=== PATIENT | male | born 1970 | race Two or more races ===

== ENCOUNTER 2020-06-27 23:06 | Inpatient (IN) | payer OTHER, MEDICAID ==
[~2020-06-27] VITALS: Ht 172.7 cm; Wt 77.6 kg
[~2020-06-27 23:06] MED LIST: ACET-3 PO; ALEN70TA56 OR; FENO134C PO; OYST500T48 OR; PHE100C PO
[2020-06-27] MEDS ORDERED: NALOXONE HCL 1MG/ML 2ML SYRINGE IV ONE (23:15)
[2020-06-27 23:52] LABS: Basophils # (auto) 0 10 ^3/uL (0-0.2); Basophils % (auto) 0.1 % (0.0-2.0); Eosinophils # (auto) 0 10 ^3/uL (0-0.8); Hematocrit 48.9 % (41.0-53.0); Hemoglobin 15.9 g/dL (13.5-17.5); Lymphocytes # (auto) 0.5 10 ^3/uL (0.4-5.4); Lymphocytes % (auto) 5.9 % (10.0-50.0); Mean Corpuscular Hemoglobin 30.7 pg (28.0-32.0); Mean Corpuscular Hgb Conc. 32.5 g/dL (32.0-36.0); Mean Corpuscular Volume 94.5 fL (80.0-100.0); Monocytes # (auto) 0.7 10 ^3/uL (0-1.3); Monocytes % (auto) 8.6 % (0.0-12.0); Neutrophils # (auto) 6.9 10 ^3/uL (1.6-8.6); Neutrophils % (auto) 85.4 % (37.0-80.0); Platelet Count (auto) 256 10^3/uL (140-450); Red Blood Cells 5.17 10^6/uL (4.5-5.90); Red Cell Distribution Width 13.9 % (11.8-14.3)
[2020-06-28] VITALS (11 sets, daily range): BP systolic 110–147; BP diastolic 71–92
[2020-06-28 00:10] LABS: Alanine Aminotransferase 227 U/L (16-61); Albumin 3.5 g/dL (3.4-5.0); Anion Gap 6 (5-15); Aspartate Aminotransferase 246 U/L (15-37); BUN/Creatinine Ratio 11.8; Blood Alcohol < 3.0 mg/dL (0-5); Blood Urea Nitrogen 18 mg/dL (7-18); Calcium 8.4 mg/dL (8.5-10.1); Carbon Dioxide 30 mmol/L (21-32); Chloride 103 mmol/L (98-107); GFR African American 62 mL/min; GFR Non-African American 51 mL/min; Glucose 193 mg/dL (74-106); Magnesium 2.1 mg/dL (1.6-2.6); Potassium 4.2 mmol/L (3.5-5.1); Sodium 139 mmol/L (136-145)
[2020-06-28 00:12] LABS: Lactic Acid w/Reflex 3.7 mmol/L (0.4-2.0)
[2020-06-28 00:15] LABS: Alkaline Phosphatase 68 U/L (45-117); Bilirubin, Total 0.2 mg/dL (0.2-1.0); Total Protein 7.2 g/dL (6.4-8.2)
[2020-06-28] MEDS ORDERED: SODIUM CHLORIDE 0.9% 1,000 ML IV ONE (00:39)
[2020-06-28] MEDS ORDERED: SODIUM BICARBONATE 8.4 % INJ 50ML VIAL IV ONE (01:00)
[2020-06-28] MEDS ORDERED: ENOXAPARIN SOD 80 MG/0.8ML SYRINGE SC ONE (01:15)
[2020-06-28 01:18] LABS: INR 1.11 (0.9-1.15); Partial Thromboplastin Time 25.1 sec (23.0-31.2)
[2020-06-28] MEDS ORDERED: levETIRAcetam 500 MG/5ML INJ IV ONE (01:37)
[2020-06-28] MEDS ORDERED: ONDANSETRON HCL 4 MG/2 ML VIAL IV PRN (02:30)
[2020-06-28] MEDS ORDERED: ACETAMINOPHEN 325 MG TAB PO PRN (02:30)
[2020-06-28] MEDS ORDERED: DEXTROSE (50%) 50ML SYRG IV PRN (02:45)
[2020-06-28] MEDS: ENOXAPARIN SOD 40 MG/0.4 ML SYRINGE SC SCH ×2 (02:54→11:27)
[2020-06-28] MEDS: ATORVASTATIN 20 MG TAB PO SCH ×2 (02:55→21:04)
[2020-06-28] MEDS: ASPirin 81 mg TAB PO SCH ×2 (02:55→10:00)
--- NOTE | 2020-06-28 03:45 | NUR ---
RECEIVED REPORT FORM ER NURSE TO RESUME CARE OF PATIENT. PATIENT BEING ADMITTED FOR ALOC AND NO S/S OF CARDIAC OR PULMONARY DISTRESS. ALL BELONGINGS WITH PATIENT. PATIENT PLACED ON BIPAP R-12 16/5 DDU000% AND TOLERATED WELL. WILL CONTINUE OT MONITOR PATIENT.
--- NOTE | 2020-06-28 04:00 | NUR ---
Admit to [facility]mitted to [facility] via gurney on campus monitor, and portable 02 and RT switched to BIPAP R-12 16/5 FIO2 50%. Patient transfered to bed, connected to unit monitoring and oxygen, and weighed by bedscale. Patient oriented to SERVANDO JOHNSON RN primary RN, unit, room, bed, and unit policies regarding patient care and visiting hours. Patient is awake alert and oriented x4 azeri speaking but has garbled speech. patient skin intact. All questions and concerns addressed, patient verbalized understanding.
--- NOTE | 2020-06-28 05:41 | NUR ---
BS-80 NO S/S HYPOGLYCEMIA NOTED NO COVERAGE/INTERVENTION NEEDED.
[2020-06-28] MEDS: InsuLIN REG 1unit/0.01ml Soln (100units/ml) SC SCH ×3 (05:47→18:00)
[2020-06-28] MEDS: ACCU-CHEK COMFORT CURVE STRIP VI SCH ×3 (05:47→18:08)
[2020-06-28] MEDS ORDERED: METF-370 PO (07:31)
[2020-06-28] MEDS ORDERED: ALEN1TAB32 PO (07:31)
[2020-06-28] MEDS ORDERED: LEVE500T32 PO (07:31)
[2020-06-28] MEDS ORDERED: ROSU20TA14 PO (07:31)
[2020-06-28] MEDS ORDERED: IBUP600T27 PO (07:31)
[2020-06-28] MEDS ORDERED: ASPI81CH43 PO (07:31)
[2020-06-28] MEDS ORDERED: CYA100I PO (07:32)
[2020-06-28] MEDS ORDERED: AMIT25TA9 PO (07:32)
[2020-06-28] MEDS ORDERED: FOLI1TAB6 PO (07:32)
--- NOTE | 2020-06-28 07:33 | NUR ---
CONSULTS LABORER MARINE TERMINAL NOTIFIED NEURO CONSULT WITH DR ELIZABETH, AND CARDIO CONSULT WITH DR VO, SHE WAS UNABLE TO CONTACT PULMONARY, NURSE JANNA NOTIFIED TO FOLLOW UP LATER TODAY.
--- NOTE | 2020-06-28 07:34 | NUR ---
GAVE REPORT TO NURSE SALDIVAR TO RESUME CARE OF PATIENT.
--- NOTE | 2020-06-28 08:01 | NUR ---
PATIENTS SABINE CALLED FOR UPDATE PROVIDED PASSWORD. UPDATED ON CURRENT STATUS.
[2020-06-28] MEDS ORDERED: VANCOMYCIN PER PHARMACY 0 MG IV SCH (08:30)
--- NOTE | 2020-06-28 09:29 | NUR ---
HAND GLUER AND SLICER AT BEDSIDE
[2020-06-28 09:36] LABS: Basophils # (auto) 0 10 ^3/uL (0-0.2); Basophils % (auto) 0.2 % (0.0-2.0); Eosinophils # (auto) 0 10 ^3/uL (0-0.8); Hematocrit 47.4 % (41.0-53.0); Hemoglobin 15.6 g/dL (13.5-17.5); Lymphocytes # (auto) 1.8 10 ^3/uL (0.4-5.4); Lymphocytes % (auto) 16.6 % (10.0-50.0); Mean Corpuscular Hgb Conc. 32.9 g/dL (32.0-36.0); Mean Corpuscular Volume 94.2 fL (80.0-100.0); Monocytes % (auto) 9.6 % (0.0-12.0); Neutrophils # (auto) 7.8 10 ^3/uL (1.6-8.6); Neutrophils % (auto) 73.6 % (37.0-80.0); Nucleated Red Blood Cells % 0.1 %; Platelet Count (auto) 273 10^3/uL (140-450); Red Blood Cells 5.03 10^6/uL (4.5-5.90); Red Cell Distribution Width 13.9 % (11.8-14.3); White Blood Cell 10.6 10^3/uL (4.4-10.8)
[2020-06-28 09:48] LABS: Albumin 3.2 g/dL (3.4-5.0); Calcium 8.2 mg/dL (8.5-10.1); Magnesium 2.4 mg/dL (1.6-2.6)
--- NOTE | 2020-06-28 09:51 | NUR ---
PATIENTS DAUGHTER JANNA CALLED FOR UPDATE PROVIDED PASSWORD. UPDATED ON PATIENTS STATUS.
[2020-06-28 09:52] LABS: BUN/Creatinine Ratio 20.2; Bilirubin, Total 0.2 mg/dL (0.2-1.0); Total Protein 7.1 g/dL (6.4-8.2)
[2020-06-28] MEDS ORDERED: VANCOMYCIN 1GM/250ML 250 ML IV SCH (10:00)
[2020-06-28] MEDS: VANCOMYCIN 1GM/250ML 250 ML IV SCH (10:05)
--- NOTE | 2020-06-28 11:12 | NUR ---
WOUND CARE NOTE: Wound care in to see patient per wound care request regarding "Low Juan score of 12", putting patient to high risk for skin breakdown. Patient is 49 years old male with admitting diagnosis of Hypercapnic Resp Failure, ALOC. Patient is resting in SDU bed in Rm. 264. Patient is awake, appears to be in no pain using Fernandez Lyman Faces Pain Scale. He's able to assist in turning and repositioning and his Jaun score is 15. Skin assessment done with the assistance of patient's nurse, ALEXANDER Pineda. No open wound, no pressure injury noted. Patient is Maldivian speaking. RT arrived at bedside and spoke with patient. Patient is alert and oriented x4, able to verbalize needs however he does not recall how he got into hospital. Patient is receiving BID/PRN cleaning and application of Barrier cream to sacral, buttocks as preventative. Repositioned patient for comfort facing his Rt side , redistributed pressure points with pillows. Patient tolerated well, ALEXANDER Pineda and R.T. at bedside. RECOMMENDATION: Nursing to continue with BID/PRN cleaning and application of Barrier cream to sacral, buttocks as preventative, redistribute pressure points with pillows, continue monitoring by wound care while Jaun score is <18. Addendum: 06/28/20 at 1517 by Chelo Hurtado RN Amended: Links added.
--- NOTE | 2020-06-28 11:15 | NUR ---
NEURO STATUS / RESPIRATORY STATUS PATIENT ONLY GREENLANDIC SPEAKER. RESPIRATORY THERAPIST SPOKE GREENLANDIC AND PATIENT IN AOX4. DOES NOT RECALL HOW HE CAME TO HOSPITAL
--- NOTE | 2020-06-28 11:50 | NUR ---
PATIENTS DAUGHTER HOWIE CALLED FOR UPDATE UPDATED ON CURRENT STATUS
--- NOTE | 2020-06-28 11:55 | NUR ---
PATIENT WHEELCHAIR BOUND AT HOME PER DAUGHTER HOWIE PATIENT HAS BEEN WHEELCHAIR BOUND SINCE SURGERY FOR SHUNT ABOUT 15-20 YEARS AGO. CAN TRANSITION WITH ASSISTANCE. PATIENT ALSO BROKE RIGHT ANKLE 10 YEARS AGO WHICH MAKES IN NON-WEIGHTBEARING.
[2020-06-28] MEDS: levoFLOXacin 500MG 100 ML IV SCH (12:10)
--- NOTE | 2020-06-28 12:19 | NUR ---
DR SWAN AT BEDSIDE, PATIENT PLACED ON NASAL CANNULA 6L TO BE ABLE TO COMMUNICATE TO MD PATIENT ABLE TO COMMUNICATE WITH LAO RN TO TRANSLATE TO MD.
--- NOTE | 2020-06-28 12:47 | NUR ---
PATIENT SPOKE WITH AND DAUGHTER ON THE PHONE.
--- NOTE | 2020-06-28 13:03 | NUR ---
PATIENT PLACED ON BEDPAN CALL LIGHT WITHIN REACH AND EDUCATED TO CALL WHEN DONE
--- NOTE | 2020-06-28 13:31 | NUR ---
HOSPITALIST VISITS DR Blaire VALADEZ AT BEDSIDE, UPDATED ON PATIENT'S STATUS, THIS NURSE COVERING AM NURSE FOR LUNCH. DR DISCUSSED PLAN OF CARE WITH PATIENT AND TRANSLATED IN ARABIC BY THIS NURSE. ALL QUESTIONS AND CONCERNS ADDRESSED, PATIENT VERBALIZED UNDERSTANDING. ORDERS RECEIVED AND WILL BE CARRIED OUT.
[2020-06-28] MEDS: PIPERACILLIN-TAZOB 3.375GM 100 ML IV SCH ×2 (13:41→18:08)
[2020-06-28] MEDS ORDERED: POLYETHYLENE GLYCOL 17 GM PWDR PO PRN (13:45)
[2020-06-28] MEDS ORDERED: guaiFENesin-DM 100/10mg/5ml SYR PO PRN (13:45)
--- NOTE | 2020-06-28 14:10 | NUR ---
Nutrition Assessment/Consult Notes Please refer to link for full assessment notes. Est Energy needs: 8568-1981 kcals (23-25 kcal/kgBW) Est Protein needs: 61-76 gms/day (0.8-1.0 gm/kgBW) Will continue to monitor and reassess prn. Addendum: 06/28/20 at [address] Amended: Links added.
--- NOTE | 2020-06-28 15:31 | NUR ---
PATIENTS SON CALLED FOR UPDATE PROVIDE PASSWORD. UPDATED ON PLAN OF CARE AND CURRENT STATUS. ADDRESSED CONCERNS
--- NOTE | 2020-06-28 16:00 | NUR ---
PATIENTS DAUGHTER HOWIE CALLED FOR UPDATE RN EDUCATED HER THAT FAMILY MEMBERS NEED TO COMMUNICATE RN CAN NOT KEEP REPEATING SAME INFORMATION. DAUGHTER VERBALIZED UNDERSTANDING AND WILL TALK WITH FAMILY. DAUGHTER WANTING TO KNOW IF PATIENT WILL BE DISCHARGED TOMORROW IT IS HIS BIRTHDAY.
--- NOTE | 2020-06-28 16:57 | NUR ---
DR PEREZ AT BEDSIDE NO NEW ORDERS
--- NOTE | 2020-06-28 19:15 | NUR ---
Opening Shift Note Assumed care of patient, awake and alert. No S/S of distress/SOB or pain. Patient currently on 3 L NC with O2 Sat of 97% Insructed on POC and to call for assistance when needed.
--- NOTE | 2020-06-28 20:00 | NUR ---
Family Communication Received call from Family member [place] requesting update on father, and requesting that father be discharged tomorrow as it is his birthday and the family wishes to spend time with him on his birthday. expressed that MD's will determine when patient is fit for discharge.
[2020-06-28] MEDS: DOCUSATE SOD 100 MG CAP PO SCH (21:03)
--- NOTE | 2020-06-28 22:25 | NUR ---
at bedside. Dr. Mendiola at bedside for Neuro evaluation.
--- NOTE | 2020-06-28 22:35 | NUR ---
Respiratory note: PLACED PT ON BIPAP B5, BIPAP CONNECTED TO RED OUTLET AND O2 SOURCE ALARMS ARE SET AND AUDIBLE AMBU BAG AND MASK AT BEDSIDE, PT ON SIZE (M) MASK, NO BREAKDOWN NOTED PRIOR TO PLACEMENT. BS ARE CLEAR T/O. PT AWARE I CAN BE PAGED AT ANY TIME. RT NAME AND PAGER ASSIGNMENT WRITTEN ON PTS ROOM BOARD.
[2020-06-29] MEDS: ACCU-CHEK COMFORT CURVE STRIP VI SCH ×5 (00:06→23:29)
[2020-06-29] MEDS: PIPERACILLIN-TAZOB 3.375GM 100 ML IV SCH ×3 (00:07→13:33)
--- NOTE | 2020-06-29 02:05 | NUR ---
Bipap Off Patient refusing to wear bipap at this time, patient placed on 4L NC Patient O2 Satis 95 and RR of 11
--- NOTE | 2020-06-29 02:31 | NUR ---
Tooth Cap Incident: During RT rounds patient presented the Real Time Analyst with a silver colored tooth cap ([place]) item placed in a denture cup and patient label place on the container, patient showed no s/s of distress in regards to cap becoming dislodged. patient denied any tooth pain at this time.
[2020-06-29 04:00] VITALS: BP 129/72
--- NOTE | 2020-06-29 04:44 | NUR ---
Morning Care: provided patient with bath, gown and bed change, patient tolerated procedure with out s/s of distress or sob.
[2020-06-29] MEDS: InsuLIN REG 1unit/0.01ml Soln (100units/ml) SC SCH ×5 (05:48→23:29)
--- NOTE | 2020-06-29 06:44 | NUR ---
End Shift Note: Provide shift report to oncoming RN and endorce care of patient. Patient awake and alert. No S/S of distress/SOB or pain. Patient currently on 5 L NC with O2 Sat of 97% with bed in lowest position locked in place and bed rails up x2.
[2020-06-29 07:40] VITALS: BP 131/71
[2020-06-29] MEDS ORDERED: VANCOMYCIN 1GM/250ML 250 ML IV SCH ×2 (09:00→21:00)
[2020-06-29] MEDS: VANCOMYCIN 1GM/250ML 250 ML IV SCH (09:04)
[2020-06-29] MEDS: ASPirin 81 mg TAB PO SCH (10:00)
[2020-06-29] MEDS: DOCUSATE SOD 100 MG CAP PO SCH ×2 (10:00→22:00)
[2020-06-29] MEDS: ENOXAPARIN SOD 40 MG/0.4 ML SYRINGE SC SCH (10:00)
--- NOTE | 2020-06-29 11:32 | NUR ---
DR Teagan LANDEROS PHONES - UPDATED ON CURRENT O2 LITER FLOW - ORDER RECEIVED. Addendum: 06/29/20 at 1134 by Colleen Maurice RN RT VELASQUEZ FOR ABCristi ORDER.
[2020-06-29 11:35] VITALS: BP 122/66
--- NOTE | 2020-06-29 12:15 | NUR ---
PATIENT DESATURATES TO 80-81% ON ROOM AIR - RT AT BEDSIDE.
[2020-06-29] MEDS: levoFLOXacin 500MG 100 ML IV SCH (12:32)
--- NOTE | 2020-06-29 12:40 | NUR ---
CALL PLACED TO DR LANDEROS RE: ABG RESULTS AND PATIENT'S RAPID DESATURATION ON ROOM AIR.
--- NOTE | 2020-06-29 13:36 | NUR ---
DR LANDEROS RETURNS CALL - STATES SAW ABG RESULTS AND WILL ENTER ORDERS. CALL PLACED TO SOCIAL SERVICE RE: NEED FOR HOME O2 FOR PROBABLE DC TOMORROW.
--- NOTE | 2020-06-29 13:40 | NUR ---
SPOKE TO ANA IN S.S. DEPT - STATES WILL ARRANGE FOR HOME O2 IN AM.
[2020-06-29] MEDS ORDERED: methylPREDNISolone SOD SUCC 125 MG/2 ML VL IV ONE (13:45)
--- NOTE | 2020-06-29 15:30 | NUR ---
DR CA VISITS AND EXAMINES PATIENT - NO NEW ORDERS RECEIVED.
[2020-06-29 15:35] VITALS: BP 131/82
--- NOTE | 2020-06-29 17:10 | NUR ---
PATIENT'S SON SHERRON PHONED - REQUESTING INFO. BOWLING ALLEY ATTENDANT CONSULTED WITH PATIENT AND PATIENT PREFERS TO GIVE OUT HIS OWN MEDICAL INFORMATION AND WILL CALL HIM. BOWLING ALLEY ATTENDANT INFORMED PATIENT'S SON - HE VERBALIZED UNDERSTANDING. BOWLING ALLEY ATTENDANT WITNESSED PATIENT USING I.S. TO 1500ML PER SELF WITHOUT BOWLING ALLEY ATTENDANT ENCOURAGING/REMINDING PATIENT. Addendum: 06/29/20 at 1739 by Colleen Maurice RN ERROR-WRONG PATIENT
--- NOTE | 2020-06-29 17:15 | NUR ---
FORM BUILDER RETURNED PATIENT'S DAUGHTER'S CALL - UPDATED ON CURRENT CONDITION. DAUGHTER ASKING WHY PATIENT CANNOT BE DISCHARGED TODAY - FORM BUILDER EXPLAINED LOW O2 LEVEL WITHOUT O2 AND MD WANTED TO KEEP HIM AT LEAST ANOTHER DAY IN HOSPITAL. PATIENT'S DAUGHTER ASKING OTHER DETAILED QUESTIONS AND STATES SHE HAS NOT TALKED TO AN MD AND HAS ONLY BEEN COMMUNICATING WITH THE NURSES. FORM BUILDER INFORMED PATIENT'S DAUGHTER THAT SHE WOULD CALL DR LANDEROS AND REQUEST THAT HE CALL HER - DAUGHTER VERY THANKFUL AND VERBALIZED UNDERSTANDING. FORM BUILDER PHONED DR LANDEROS'S SERVICE AND LEFT MESSAGE TO CALL PATIENT'S DAUGHTER.
[2020-06-29 20:00] VITALS: BP 127/74
--- NOTE | 2020-06-29 20:00 | NUR ---
SHIFT OPENING NOTE RECEIVED PATIENT AWAKE, ALERT AND ORIENTED X4. NO SOB, DISTRESS OR PAIN NOTED. ON 5L N/C POX 93%. PHYSICAL ASSESSMENT COMPLETED, SEE INTERVENTIONS. INSTRUCTED ON POC AND TO CALL FOR ASSIST NEEDED. BED IS IN THE LOWEST POSITION WITH SIDE RAILS UP X2, CALL LIGHT IS WITHIN REACH.
[2020-06-29] MEDS: methylPREDNISolone SOD SUCC 40 MG/ML VL IV SCH (21:15)
[2020-06-29] MEDS: ATORVASTATIN 20 MG TAB PO SCH (22:15)
--- NOTE | 2020-06-29 22:40 | NUR ---
ORAL SUCTION MODERATE AMOUNT OF THICK WHITE SECRETIONS SUCTIONED FROM THROAT. TOLERATED IT WELL.
[2020-06-30] VITALS (8 sets, daily range): BP systolic 96–123; BP diastolic 57–80
--- NOTE | 2020-06-30 00:50 | NUR ---
MORNING HYGIENE CARE FULL BED BATH PERFORMED WITH CHG WIPES AND WARM SOAPY WASH CLOTHES. GOWN CHANGED. PARTIAL LINEN CHANGED. PATIENT REPOSITIONED FOR COMFORT. TOLERATED IT WELL.
--- NOTE | 2020-06-30 05:15 | NUR ---
INCONTINENT OF URINE PATIENT NOTED TO HAVE PAD SATURATED WITH URINE. CARRINGTON CARE PERFORMED. NEW PADS PLACED UNDER PATIENT. TOLERATE IT WELL.
[2020-06-30] MEDS: InsuLIN REG 1unit/0.01ml Soln (100units/ml) SC SCH ×2 (05:55→12:26)
[2020-06-30] MEDS: ACCU-CHEK COMFORT CURVE STRIP VI SCH ×2 (05:55→12:29)
--- NOTE | 2020-06-30 06:27 | NUR ---
Respiratory note: ASSESSED PT , PATIENT WAS ASLEEP, NO RESP DISTRESS NOTED. PT IS ON 6L N/C, BS ARE COARSE T/O. TITRATED FIO2 TO 5L.WILL CONTINUE TO MONITOR.
--- NOTE | 2020-06-30 07:05 | NUR ---
Assumed care of pt, report received per ALEXANDER Juares. No distress noted, pt in bed and attached to monitor, pt. is reading sinus rhythm /s ectopy, will cont.to monitor for any changes, call horn in reach, assessment ongoing.
--- NOTE | 2020-06-30 07:15 | NUR ---
END OF SHIFT REPORT GIVEN AND CARE ENDORSED TO KAL MUNOZ.
[2020-06-30] MEDS: ENOXAPARIN SOD 40 MG/0.4 ML SYRINGE SC SCH (10:19)
[2020-06-30] MEDS: methylPREDNISolone SOD SUCC 40 MG/ML VL IV SCH (10:20)
[2020-06-30] MEDS: ASPirin 81 mg TAB PO SCH (10:20)
[2020-06-30] MEDS: DOCUSATE SOD 100 MG CAP PO SCH (10:20)
[2020-06-30] MEDS: levoFLOXacin 500MG 100 ML IV SCH (10:43)
[2020-06-30] MEDS ORDERED: IPRIH IN (12:54)
[2020-06-30] MEDS ORDERED: LEVO500T21 PO (12:54)
[2020-06-30] MEDS ORDERED: ALBUAER3 IN (12:54)
[2020-06-30] MEDS ORDERED: DOCU100C8 PO (12:54)
[2020-06-30] MEDS ORDERED: PRED20TA2 PO (12:54)
[2020-06-30] MEDS ORDERED: DEXT1SYP9 PO (12:54)
--- NOTE | 2020-06-30 13:00 | NUR ---
EEG. UNABLE TO COMPLETE EEG. PT EATING AND STATED HE WOULD LIKE FOR STUDY TO BE COMPLETED AT A LATER TIME. PRIMARY RN AWARE.
--- NOTE | 2020-06-30 14:01 | NUR ---
Nutrition Followup Notes Pt wt is 77.6 kg. Pt was sleeping when rounded this morning. Pt is with a CCHO 60g diet, appetite is fair aeb ave 63% PO intake over 2 meals per RN doc. Pt with no S/S of distress per RN doc. Est Energy needs: 0497-0112 kcals (23-25 kcal/kgBW) Est Protein needs: 61-76 gms/day (0.8-1.0 gm/kgBW) Will continue to monitor and reassess prn. LABS: GLUC 128 H, ALB 3.2 L GI: Pt had 1 BM on 06/29 per RN doc BS: 15 mod risk. Refer to wound assessment report for full details. PES: 1) Increased nutrient needs r/t pt with no PO intake aeb pt is NPO 2) Altered nutrition related la values r/t current medical condition aeb elev LFTs, hyperglycemia, hypocalcemia Comments Will continue to monitor PO status, skin status, pertinent labs and weight trends. Will f/u in 3-5 days. 1) Continue to carefully monitor pt NPO status 2) Gradually advance pt to oral CCHO 60g diet when medically feasible and as tolerated 3) Continue current plan of care
--- NOTE | 2020-06-30 15:00 | NUR ---
Dr. Renee notified of physical therapy recommendation of SNF, upon assessment pt. is noted severely weak and I concur /c physical therapy's recommendation, family and social economist updated, will cont.to monitor for any changes, family to return call. Assessment ongoing.
--- NOTE | 2020-06-30 17:43 | NUR ---
Assessment Patient is a 50-year-old year old male. Assessment was completed with patient Chitra Ph:). Per Chitra prior to admission patient lived home with her and family. Per Chitra she helps patient with his ADLs. Chitra is patient caregiver and IHSS. Per Chitra prior to admission patient was having difficulty breathing at night and brought patient to the hospital. Per Chitra patient has been having health problems for over 26 years. Per Chitra patient will return to his prior living arrangements post discharge and [facility] transportation to be arranged. Patient has a wheelchair for home use. Advised Chitra patient has a social service consult for home health safety evaluation, physical therapy [facility] transitional [facility] management and home oxygen at 3 l/min. Informed Chitra clinical information will be faxed to [facility] and [facility]. Informed Chitra she has a right to participate in all discharge planning. Chitra verbalized understanding and agreed to discharge plan home. [facility] and [facility] Per Priscilla with [employer] [phone] patient has been accepted and service to start within 24-48hrs upon d/c day. Per Dulce with [facility] portable oxygen will be deliver to front lobby between 14:00-16:00 and concentrate oxygen to home. Transportation has been arranged with [employer] via [employer] with oxygen between 17:00-18:30. Informed ALEXANDER Smith. Addendum: 06/30/20 at 1754 by ANA MAGANA Amended: Links added.
--- NOTE | 2020-06-30 18:15 | NUR ---
Dr. Rm and Sameera paged for consult to discharge pt. to home per Dr. Renee, will cont.to await medical consult, call horn in pt reach, assessment ongoing.
--- NOTE | 2020-06-30 18:30 | NUR ---
Dr. Rm and Sameera paged again for consult to discharge pt. to home per Dr. Renee, will cont.to await medical consult, call horn in pt reach, assessment ongoing.
--- NOTE | 2020-06-30 19:04 | NUR ---
No distress noted, pt. VSS, confirmation to discharge pt to home approved per Dr. Rm and Dr. Brasher, pt. discharge to home at this time per [facility]. IV removed, tip intact, bleeding controlled.
== END 2020-06-30 18:00 | disposition home health service (06) | DRG 189 ==
LOC: ER 23:06 → TELE 23:07 → DOU IN ICU 06-28 04:16
PROVIDERS: ADMIT Internal Medicine; ATTEND Internal Medicine
PROC: 5A09357 Assistance with Respiratory Ventilation, Less than 24 Consecutive Hours, Continuous Positive Airway Pressure (ICD-10-PCS; principal; 2020-06-28)
PROC: 5A09357 Assistance with Respiratory Ventilation, Less than 24 Consecutive Hours, Continuous Positive Airway Pressure (ICD-10-PCS; 2020-06-29)
DX: J96.02 Acute respiratory failure with hypercapnia (principal); G92 Toxic encephalopathy; J44.1 Chronic obstructive pulmonary disease with (acute) exacerbation; E87.2 Acidosis; I24.8 Other forms of acute ischemic heart disease; J96.01 Acute respiratory failure with hypoxia; E11.9 Type 2 diabetes mellitus without complications; G40.909 Epilepsy, unspecified, not intractable, without status epilepticus; K59.00 Constipation, unspecified; E78.5 Hyperlipidemia, unspecified; G91.4 Hydrocephalus in diseases classified elsewhere; M81.0 Age-related osteoporosis without current pathological fracture; I10 Essential (primary) hypertension; F17.210 Nicotine dependence, cigarettes, uncomplicated; Z79.4 Long term (current) use of insulin; F32.9 Major depressive disorder, single episode, unspecified; F41.9 Anxiety disorder, unspecified; Z79.82 Long term (current) use of aspirin; Z79.899 Other long term (current) drug therapy; Z82.49 Family history of ischemic heart disease and other diseases of the circulatory system; Z83.3 Family history of diabetes mellitus; Z87.11 Personal history of peptic ulcer disease; Z98.2 Presence of cerebrospinal fluid drainage device
CPT/HCPCS: 36415; 36600; 70450; 71045; 72125; 76705; 80053; 80061; 80202; 80320; 82550; 82565; 82805; 82962; 83036; 83605; 83735; 83880; 84100; 84484; 85025; 85379; 85384; 85610; 85730; 87040; 87076; 93306; 94660; 97110; 97530; G0378; J1815; J1956; J2543; J7060

== ENCOUNTER 2020-07-18 17:10 | Inpatient (IN) | payer OTHER, MEDICAID ==
[~2020-07-18] VITALS: Ht 172.7 cm; Wt 70.0 kg
[~2020-07-18 17:10] MED LIST changes: +ALBUAER3 IN; +ALEN1TAB32 PO; -ALEN70TA56 OR; +AMIT25TA9 PO; +ASPI81CH43 PO; +CYA100I PO; +DEXT1SYP9 PO; +DOCU100C8 PO; -FENO134C PO; +FOLI1TAB6 PO; +IBUP600T27 PO; +IPRIH IN; +LEVE500T32 PO; +LEVO500T21 PO; +METF-370 PO; -OYST500T48 OR; -PHE100C PO; +PRED20TA2 PO; +ROSU20TA14 PO
[2020-07-18 18:36] LABS: Basophils # (auto) 0 10 ^3/uL (0-0.2); Basophils % (auto) 0.3 % (0.0-2.0); Eosinophils # (auto) 0 10 ^3/uL (0-0.8); Eosinophils % (auto) 0.5 % (0.0-7.0); Hematocrit 45.7 % (41.0-53.0); Hemoglobin 15.1 g/dL (13.5-17.5); Lymphocytes # (auto) 0.8 10 ^3/uL (0.4-5.4); Lymphocytes % (auto) 10.1 % (10.0-50.0); Mean Corpuscular Hemoglobin 30.4 pg (28.0-32.0); Mean Corpuscular Hgb Conc. 33.1 g/dL (32.0-36.0); Mean Corpuscular Volume 91.7 fL (80.0-100.0); Monocytes # (auto) 0.6 10 ^3/uL (0-1.3); Monocytes % (auto) 7.5 % (0.0-12.0); Neutrophils # (auto) 6.5 10 ^3/uL (1.6-8.6); Neutrophils % (auto) 81.6 % (37.0-80.0); Nucleated Red Blood Cells % 0.1 %; Platelet Count (auto) 255 10^3/uL (140-450); Red Blood Cells 4.98 10^6/uL (4.5-5.90); Red Cell Distribution Width 12.7 % (11.8-14.3)
[2020-07-18 18:52] LABS: Albumin 3.4 g/dL (3.4-5.0); Blood Urea Nitrogen 9 mg/dL (7-18); Calcium 9.8 mg/dL (8.5-10.1); Glucose 109 mg/dL (74-106); Potassium 4.1 mmol/L (3.5-5.1)
[2020-07-18 19:00] LABS: Alanine Aminotransferase 21 U/L (16-61); Alkaline Phosphatase 55 U/L (45-117); Aspartate Aminotransferase 9 U/L (15-37); BUN/Creatinine Ratio 19.1; Bilirubin, Total 0.4 mg/dL (0.2-1.0); CRP High Sensitivity 3.04 mg/dL (< 0.3); GFR African American 241 mL/min; GFR Non-African American 199 mL/min; Lactate Dehydrogenase 122 U/L (87-241); Total Protein 7.5 g/dL (6.4-8.2)
[2020-07-18] MEDS ORDERED: NITROGLYCERIN 0.4 MG SL TAB SL PRN ×2 (19:00→20:00)
[2020-07-18] MEDS ORDERED: MORPHINE SULF INJ 2 MG/ML SYRINGE 1ML IV PRN ×3 (19:00→20:00)
[2020-07-18] MEDS ORDERED: levoFLOXacin 500MG 100 ML IV ONE (20:00)
[2020-07-18] MEDS ORDERED: guaiFENesin-DM 100/10mg/5ml SYR PO PRN (20:00)
[2020-07-18] MEDS ORDERED: CLINDAMYCIN 600MG IV 50 ML IV ONE (20:00)
[2020-07-18] MEDS ORDERED: ALENDRONATE SODIUM 10 MG TAB PO SCH (20:00)
[2020-07-18] MEDS ORDERED: ACETAMINOPHEN 325 MG TAB PO PRN (20:00)
[2020-07-18] MEDS ORDERED: DEXTROSE (50%) 50ML SYRG IV PRN (20:00)
[2020-07-18] MEDS ORDERED: ALUM & MAG HYDROX-SIMETH LIQ(MAALOX) 30 ML PO PRN (20:00)
[2020-07-18] MEDS ORDERED: cefTRIAXone 1GM/50ML D5W 50 ML IV ONE (20:00)
[2020-07-18] MEDS ORDERED: LORazepam 0.5 MG TAB PO PRN (20:00)
[2020-07-18] MEDS ORDERED: ONDANSETRON HCL 4 MG/2 ML VIAL IV PRN (20:00)
[2020-07-18] MEDS ORDERED: HYDROcodone-ACET 5/325MG TAB PO PRN (20:00)
[2020-07-18] MEDS ORDERED: DOCUSATE SOD 100 MG CAP PO PRN (20:00)
[2020-07-18 20:08] LABS: Anion Gap 3 (5-15); Carbon Dioxide 39 mmol/L (21-32); Chloride 97 mmol/L (98-107); Sodium 139 mmol/L (136-145)
[2020-07-18 20:10] VITALS: BP 105/60
[2020-07-18] MEDS ORDERED: IPRATROPIUM BROM 0.5 MG/2.5ML INH SOL NEB PRN (20:15)
[2020-07-18 20:51] LABS: Cholesterol 167 mg/dL (< 200); Triglycerides 109 mg/dL (< 150)
[2020-07-18 20:54] LABS: HDL Cholesterol 38 mg/dL (40-59); LDL Cholesterol 113 mg/dL (< 100)
[2020-07-18 22:00] VITALS: BP 105/60
[2020-07-18] MEDS ORDERED: IBUPROFEN 600 MG TAB PO PRN (22:00)
[2020-07-18] MEDS: InsuLIN REG 1unit/0.01ml Soln (100units/ml) SC SCH (22:00)
[2020-07-18] MEDS ORDERED: DOCUSATE SOD 100 MG CAP PO SCH (22:00)
[2020-07-18] MEDS ORDERED: CLINDAMYCIN 600MG IV 50 ML IV SCH (22:00)
[2020-07-18] MEDS: AMITRIPTYLINE HCL 25 MG TAB PO SCH (22:10)
[2020-07-18] MEDS: ATORVASTATIN 20 MG TAB PO SCH (22:10)
[2020-07-18] MEDS: levETIRAcetam 500 MG TAB PO SCH (22:10)
[2020-07-18] MEDS: SODIUM CHLORIDE 0.9% 1,000 ML IV SCH (22:11)
[2020-07-18] MEDS: ACCU-CHEK COMFORT CURVE STRIP VI SCH (22:21)
[2020-07-19] VITALS (7 sets, daily range): BP systolic 95–125; BP diastolic 60–75
[2020-07-19] MEDS ORDERED: ACETAMINOPHEN 500 MG TAB PO SCH
[2020-07-19] MEDS ORDERED: OMEG600C2 PO (00:52)
[2020-07-19] MEDS ORDERED: [UNRECOGNIZED DRUG - CODE] PO (00:52)
[2020-07-19] MEDS ORDERED: CALC500C71 PO (00:52)
[2020-07-19] MEDS ORDERED: FLUT110A INH (00:52)
[2020-07-19] MEDS ORDERED: MELO1TAB56 PO (00:52)
[2020-07-19] MEDS ORDERED: SERDISK IN (00:52)
[2020-07-19] MEDS ORDERED: CHOL20007 PO (00:52)
[2020-07-19] MEDS ORDERED: ASPI325T4 PO (00:54)
[2020-07-19] MEDS ORDERED: methylPREDNISolone SOD SUCC 125 MG/2 ML VL IV ONE (01:30)
[2020-07-19 04:59] LABS: Urine WBC None Seen /hpf (0 - 3)
[2020-07-19 05:14] LABS: Urine Bacteria NONE SEEN /hpf (None Seen); Urine Blood Negative /uL (Negative); Urine Mucus FEW (None Seen); Urine Specific Gravity 1.021 (1.001-1.035)
[2020-07-19 05:23] LABS: Amphetamine Screen, Urine NEGATIVE (NEGATIVE); Barbiturate Scree,Urine NEGATIVE (NEGATIVE); Benzodiazephine Screen, Urine NEGATIVE (NEGATIVE); Cannabinoid Screen, Urine NEGATIVE (NEGATIVE); Cocaine Screen, Urine NEGATIVE (NEGATIVE); Opiate Scree,Urine NEGATIVE (NEGATIVE); Phencyclidine Screen, Urine NEGATIVE (NEGATIVE)
[2020-07-19] MEDS: IPRATROPIUM BROM 0.5 MG/2.5ML INH SOL NEB SCH ×5 (06:38→22:34)
[2020-07-19] MEDS: ACCU-CHEK COMFORT CURVE STRIP VI SCH ×4 (06:44→22:01)
[2020-07-19] MEDS: methylPREDNISolone SOD SUCC 40 MG/ML VL IV SCH ×3 (06:44→22:04)
[2020-07-19] MEDS: InsuLIN REG 1unit/0.01ml Soln (100units/ml) SC SCH ×4 (06:51→22:02)
[2020-07-19] MEDS ORDERED: cefTRIAXone 1GM/50ML D5W 50 ML IV SCH (09:00)
[2020-07-19] MEDS: ENOXAPARIN SOD 40 MG/0.4 ML SYRINGE SC SCH (11:22)
[2020-07-19] MEDS: levoFLOXacin 500MG 100 ML IV SCH (11:22)
[2020-07-19] MEDS: SUCRALFATE 1 GM/10 ML ORAL SUSP PO SCH ×3 (11:23→22:04)
[2020-07-19] MEDS: PANTOPRAZOLE 40 MG TAB PO SCH ×2 (11:23→22:06)
[2020-07-19] MEDS: ASPirin 81 mg TAB PO SCH (11:23)
[2020-07-19] MEDS: LACTULOSE 20Gm/30ML SOLN PO PRN (11:23)
[2020-07-19] MEDS: dilTIAZem 120MG ER CAP PO SCH (11:24)
[2020-07-19] MEDS: levETIRAcetam 500 MG TAB PO SCH ×2 (11:24→22:05)
[2020-07-19] MEDS: SODIUM CHLORIDE 0.9% 1,000 ML IV SCH (11:51)
[2020-07-19] MEDS: ALBUTEROL SULF 2.5 MG/0.5ML(0.5%) NEB SOLN NEB PRN (18:44)
[2020-07-19] MEDS: AMITRIPTYLINE HCL 25 MG TAB PO SCH (22:06)
[2020-07-19] MEDS: ATORVASTATIN 20 MG TAB PO SCH (22:06)
[2020-07-20 05:33] VITALS: BP 106/65
[2020-07-20 05:45] LABS: Basophils # (auto) 0 10 ^3/uL (0-0.2); Basophils % (auto) 0.1 % (0.0-2.0); Eosinophils # (auto) 0 10 ^3/uL (0-0.8); Hematocrit 42.1 % (41.0-53.0); Hemoglobin 14.3 g/dL (13.5-17.5); Lymphocytes # (auto) 0.9 10 ^3/uL (0.4-5.4); Lymphocytes % (auto) 9.7 % (10.0-50.0); Mean Corpuscular Hemoglobin 30.6 pg (28.0-32.0); Mean Corpuscular Hgb Conc. 33.9 g/dL (32.0-36.0); Mean Corpuscular Volume 90.3 fL (80.0-100.0); Monocytes # (auto) 0.2 10 ^3/uL (0-1.3); Monocytes % (auto) 1.7 % (0.0-12.0); Neutrophils % (auto) 88.5 % (37.0-80.0); Platelet Count (auto) 272 10^3/uL (140-450); Red Blood Cells 4.67 10^6/uL (4.5-5.90); Red Cell Distribution Width 12.7 % (11.8-14.3)
[2020-07-20] MEDS: SODIUM CHLORIDE 0.9% 1,000 ML IV SCH ×2 (05:54→22:56)
[2020-07-20] MEDS: methylPREDNISolone SOD SUCC 40 MG/ML VL IV SCH ×3 (05:54→22:00)
[2020-07-20 06:00] LABS: Calcium 9.5 mg/dL (8.5-10.1); Potassium 3.9 mmol/L (3.5-5.1)
[2020-07-20] MEDS: IPRATROPIUM BROM 0.5 MG/2.5ML INH SOL NEB SCH ×5 (06:35→22:41)
[2020-07-20] MEDS: ALBUTEROL SULF 2.5 MG/0.5ML(0.5%) NEB SOLN NEB PRN (06:35)
[2020-07-20] MEDS: SUCRALFATE 1 GM/10 ML ORAL SUSP PO SCH ×4 (06:37→22:00)
[2020-07-20] MEDS: ACCU-CHEK COMFORT CURVE STRIP VI SCH ×4 (06:37→22:01)
[2020-07-20] MEDS: InsuLIN REG 1unit/0.01ml Soln (100units/ml) SC SCH ×4 (06:41→22:03)
[2020-07-20 08:58] VITALS: BP 101/59
[2020-07-20] MEDS: ENOXAPARIN SOD 40 MG/0.4 ML SYRINGE SC SCH (11:05)
[2020-07-20] MEDS: ASPirin 81 mg TAB PO SCH (11:05)
[2020-07-20] MEDS: levoFLOXacin 500MG 100 ML IV SCH (11:05)
[2020-07-20] MEDS: levETIRAcetam 500 MG TAB PO SCH ×2 (11:06→22:01)
[2020-07-20] MEDS: dilTIAZem 120MG ER CAP PO SCH (11:06)
[2020-07-20] MEDS: PANTOPRAZOLE 40 MG TAB PO SCH ×2 (11:06→22:01)
[2020-07-20 13:00] VITALS: BP 102/61
[2020-07-20 17:00] VITALS: BP 100/59
[2020-07-20 20:00] VITALS: BP 121/79
[2020-07-20 22:00] VITALS: BP 121/79
[2020-07-20] MEDS: AMITRIPTYLINE HCL 25 MG TAB PO SCH (22:00)
[2020-07-20] MEDS: ATORVASTATIN 20 MG TAB PO SCH (22:01)
[2020-07-20] MEDS: LACTULOSE 20Gm/30ML SOLN PO PRN (22:09)
[2020-07-21] MEDS: IPRATROPIUM BROM 0.5 MG/2.5ML INH SOL NEB SCH ×5 (02:06→18:37)
[2020-07-21 05:00] VITALS: BP 121/81
[2020-07-21 05:39] LABS: Basophils # (auto) 0 10 ^3/uL (0-0.2); Basophils % (auto) 0.1 % (0.0-2.0); Eosinophils # (auto) 0 10 ^3/uL (0-0.8); Hematocrit 42.2 % (41.0-53.0); Hemoglobin 14.2 g/dL (13.5-17.5); Lymphocytes # (auto) 0.8 10 ^3/uL (0.4-5.4); Lymphocytes % (auto) 7.4 % (10.0-50.0); Mean Corpuscular Hemoglobin 30.7 pg (28.0-32.0); Mean Corpuscular Hgb Conc. 33.7 g/dL (32.0-36.0); Mean Corpuscular Volume 90.9 fL (80.0-100.0); Monocytes # (auto) 0.2 10 ^3/uL (0-1.3); Monocytes % (auto) 1.6 % (0.0-12.0); Neutrophils # (auto) 10.1 10 ^3/uL (1.6-8.6); Neutrophils % (auto) 90.9 % (37.0-80.0); Nucleated Red Blood Cells % 0.1 %; Platelet Count (auto) 259 10^3/uL (140-450); Red Blood Cells 4.65 10^6/uL (4.5-5.90); Red Cell Distribution Width 12.6 % (11.8-14.3); White Blood Cell 11.1 10^3/uL (4.4-10.8)
[2020-07-21 05:55] LABS: Potassium 3.6 mmol/L (3.5-5.1)
[2020-07-21 06:00] LABS: BUN/Creatinine Ratio 31.8; Calcium 9.3 mg/dL (8.5-10.1)
[2020-07-21] MEDS: methylPREDNISolone SOD SUCC 40 MG/ML VL IV SCH ×2 (06:06→14:00)
[2020-07-21] MEDS: ALBUTEROL SULF 2.5 MG/0.5ML(0.5%) NEB SOLN NEB PRN ×3 (06:08→18:37)
[2020-07-21] MEDS: ACCU-CHEK COMFORT CURVE STRIP VI SCH ×3 (06:38→17:00)
[2020-07-21] MEDS: SUCRALFATE 1 GM/10 ML ORAL SUSP PO SCH ×3 (06:38→17:00)
[2020-07-21] MEDS: InsuLIN REG 1unit/0.01ml Soln (100units/ml) SC SCH ×3 (06:40→17:00)
[2020-07-21 09:00] VITALS: BP 119/74
[2020-07-21] MEDS: ENOXAPARIN SOD 40 MG/0.4 ML SYRINGE SC SCH (09:56)
[2020-07-21] MEDS: levoFLOXacin 500MG 100 ML IV SCH (09:56)
[2020-07-21] MEDS: ASPirin 81 mg TAB PO SCH (09:56)
[2020-07-21] MEDS: PANTOPRAZOLE 40 MG TAB PO SCH (09:57)
[2020-07-21] MEDS: levETIRAcetam 500 MG TAB PO SCH (09:57)
[2020-07-21] MEDS: dilTIAZem 120MG ER CAP PO SCH (09:57)
[2020-07-21] MEDS: LACTULOSE 20Gm/30ML SOLN PO PRN (11:10)
[2020-07-21 13:00] VITALS: BP 149/65
[2020-07-21] MEDS: SODIUM CHLORIDE 0.9% 1,000 ML IV SCH (14:40)
[2020-07-21 15:52] VITALS: BP 149/65
[2020-07-21 16:56] VITALS: BP 122/75
[2020-07-22] MEDS ORDERED: levoFLOXacin 750MG 150 ML IV SCH (10:00)
== END 2020-07-21 20:25 | disposition home or self-care (01) | DRG 177 ==
LOC: ER 17:10 → EDBD 17:10 → TELE 17:11 → TELE-CENTR 19:59 → TELE-EAST 23:44 → TELE-CENTR 07-19 03:25
PROVIDERS: ADMIT Hospitalist; ATTEND Internal Medicine
DX: J69.0 Pneumonitis due to inhalation of food and vomit (principal); J96.21 Acute and chronic respiratory failure with hypoxia; G92 Toxic encephalopathy; J96.22 Acute and chronic respiratory failure with hypercapnia; J44.1 Chronic obstructive pulmonary disease with (acute) exacerbation; D68.59 Other primary thrombophilia; Z20.828 Contact with and (suspected) exposure to other viral communicable diseases; E11.40 Type 2 diabetes mellitus with diabetic neuropathy, unspecified; I48.91 Unspecified atrial fibrillation; I10 Essential (primary) hypertension; E78.5 Hyperlipidemia, unspecified; G40.909 Epilepsy, unspecified, not intractable, without status epilepticus; K59.00 Constipation, unspecified; I25.10 Atherosclerotic heart disease of native coronary artery without angina pectoris; I25.2 Old myocardial infarction; Z90.49 Acquired absence of other specified parts of digestive tract; Z87.11 Personal history of peptic ulcer disease
CPT/HCPCS: 36415; 36600; 70450; 71045; 80048; 80053; 80061; 80307; 81001; 82728; 82805; 82962; 83036; 83615; 83880; 84443; 84484; 85025; 86141; 87040; 87070; 87081; 87086; 87205; 87426; 92610; 94640; G0378; J1815; J1956

== ENCOUNTER 2020-08-09 08:24 | Inpatient (IN) | payer OTHER, MEDICAID ==
[~2020-08-09] VITALS: Ht 165.1 cm; Wt 64.2 kg
[~2020-08-09 08:24] MED LIST changes: -ALEN1TAB32 PO; +ASPI325T4 PO; -ASPI81CH43 PO; +CALC500C71 PO; +CHOL20007 PO; +FLUT110A INH; +MELO1TAB56 PO; +OMEG600C2 PO; -PRED20TA2 PO; -ROSU20TA14 PO; +SERDISK IN; +[UNRECOGNIZED DRUG - CODE] PO
[2020-08-09] MEDS ORDERED: SODIUM CHLORIDE 0.9% 1,000 ML IV ONE (08:45)
[2020-08-09] MEDS ORDERED: ACETAMINOPHEN 325 MG TAB PO ONE (08:45)
[2020-08-09] MEDS ORDERED: CIPROFLOXACIN 400MG/200ML 200 ML IV ONE (09:15)
[2020-08-09 09:46] LABS: Basophils # (auto) 0 10 ^3/uL (0-0.2); Basophils % (auto) 0.2 % (0.0-2.0); Eosinophils # (auto) 0 10 ^3/uL (0-0.8); Eosinophils % (auto) 0.7 % (0.0-7.0); Hematocrit 40.9 % (41.0-53.0); Hemoglobin 13.5 g/dL (13.5-17.5); Lymphocytes # (auto) 0.6 10 ^3/uL (0.4-5.4); Lymphocytes % (auto) 8.9 % (10.0-50.0); Mean Corpuscular Hemoglobin 30.2 pg (28.0-32.0); Mean Corpuscular Volume 91.5 fL (80.0-100.0); Monocytes # (auto) 0.7 10 ^3/uL (0-1.3); Monocytes % (auto) 11.9 % (0.0-12.0); Neutrophils # (auto) 4.9 10 ^3/uL (1.6-8.6); Neutrophils % (auto) 78.3 % (37.0-80.0); Nucleated Red Blood Cells % 0.2 %; Platelet Count (auto) 249 10^3/uL (140-450); Red Blood Cells 4.47 10^6/uL (4.5-5.90); White Blood Cell 6.3 10^3/uL (4.4-10.8)
[2020-08-09 10:11] LABS: Albumin 2.9 g/dL (3.4-5.0); Anion Gap 0 (5-15); Blood Urea Nitrogen 12 mg/dL (7-18); Calcium 9.7 mg/dL (8.5-10.1); Carbon Dioxide 40 mmol/L (21-32); Chloride 99 mmol/L (98-107); Glucose 151 mg/dL (74-106); Magnesium 1.8 mg/dL (1.6-2.6); Potassium 3.6 mmol/L (3.5-5.1); Sodium 139 mmol/L (136-145)
[2020-08-09 10:17] LABS: Alanine Aminotransferase 13 U/L (16-61); Alkaline Phosphatase 58 U/L (45-117); Aspartate Aminotransferase 11 U/L (15-37); BUN/Creatinine Ratio 26.1; Bilirubin, Total 0.3 mg/dL (0.2-1.0); GFR African American 247 mL/min; GFR Non-African American 204 mL/min; Total Protein 6.8 g/dL (6.4-8.2)
[2020-08-09 13:03] LABS: Urine WBC None Seen /hpf (0 - 3)
[2020-08-09 13:28] LABS: Urine Bacteria NONE SEEN /hpf (None Seen); Urine Blood Negative /uL (Negative); Urine Hyaline Cast FEW /lpf (0 - 2); Urine Mucus FEW (None Seen); Urine Specific Gravity 1.021 (1.001-1.035)
[2020-08-09] MEDS ORDERED: DEXTROSE (50%) 50ML SYRG IV PRN (15:45)
[2020-08-09] MEDS ORDERED: VANCOMYCIN PER PHARMACY 0 MG IV SCH (15:45)
[2020-08-09] MEDS ORDERED: MORPHINE SULF INJ 2 MG/ML SYRINGE 1ML IV PRN (15:45)
[2020-08-09] MEDS ORDERED: NITROGLYCERIN 0.4 MG SL TAB SL PRN (15:45)
[2020-08-09] MEDS ORDERED: guaiFENesin-DM 100/10mg/5ml SYR PO PRN (15:45)
[2020-08-09] MEDS ORDERED: ALBUTEROL SULF HFA 90MCG INH 200DOSE IN PRN (15:45)
[2020-08-09] MEDS: InsuLIN REG 1unit/0.01ml Soln (100units/ml) SC SCH ×2 (17:00→21:51)
[2020-08-09] MEDS: ACCU-CHEK COMFORT CURVE STRIP VI SCH ×2 (17:00→21:51)
--- NOTE | 2020-08-09 17:39 | NUR ---
Telemetry admit from [facility] admitted to Telemetry unit. Patient oriented to Jessie Levine, primary RN, unit, room, bed, and unit policies regarding patient care and visiting hours. Patient now on continuous telemetry monitoring, tele box #24 and telemetry reading on arrival to unit is SR @ 97 BPM. Bed set to lowest position/locked, beside rails up x2, call light within reach. Instructed patient to call for assistance. Patient verbalized understanding. Will continue to monitor q 1hr and prn.
[2020-08-09 17:54] VITALS: BP 131/81
[2020-08-09 17:56] VITALS: BP 131/81
[2020-08-09] MEDS ORDERED: ACETAMINOPHEN 500 MG TAB PO SCH (18:00)
[2020-08-09] MEDS ORDERED: ACETAMINOPHEN 500 MG TAB PO PRN (18:30)
[2020-08-09] MEDS: VANCOMYCIN 1GM/250ML 250 ML IV SCH (18:32)
--- NOTE | 2020-08-09 18:43 | NUR ---
MRSA SWAB MRSA SWAB COLLECTED.
--- NOTE | 2020-08-09 19:30 | NUR ---
Opening Shift Note Assumed care of patient, awake and alert x4. Patient denies pain or shortness of breath at this time. No sign/symptoms of distress noted or verbalized at this time. Instructed on plan of care and encouraged patient to call for assistance as needed, patient verbalized understanding. Bed is locked in lowest position, side rails x 2 are up, and call light is within reach. Addendum: 08/09/20 at 2250 by ANAI ROBERTSON RN RN Seizures precautions in place. Addendum: 08/09/20 at 2250 by ANAI ROBERTSON RN RN Seizure precautions in place.
[2020-08-09] MEDS: AMITRIPTYLINE HCL 25 MG TAB PO SCH (21:30)
[2020-08-09] MEDS: PIPERACILLIN-TAZOB 3.375GM 100 ML IV SCH (21:30)
[2020-08-09] MEDS: levETIRAcetam 500 MG TAB PO SCH (21:30)
[2020-08-09 22:00] VITALS: BP 118/73
[2020-08-10 00:39] VITALS: BP 110/73
[2020-08-10] MEDS: VANCOMYCIN 1GM/250ML 250 ML IV SCH ×5 (04:30→20:30)
[2020-08-10 05:00] VITALS: BP 114/60
[2020-08-10] MEDS: PIPERACILLIN-TAZOB 3.375GM 100 ML IV SCH ×3 (06:22→22:16)
[2020-08-10] MEDS: ACCU-CHEK COMFORT CURVE STRIP VI SCH ×4 (06:22→22:16)
[2020-08-10] MEDS: InsuLIN REG 1unit/0.01ml Soln (100units/ml) SC SCH ×4 (06:35→22:29)
--- NOTE | 2020-08-10 07:20 | NUR ---
OPENING NOTE ASSUMED CARE OF PT. AWAKE AND ALERT. NO S/S OF SOB/DISTRESS. BED SET TO LOWEST POSITION/LOCKED. BEDSIDE RAILS UP X2. CALL LIGHT WITH IN REACH. INSTRUCTED PT TO CALL FOR ASSISTANCE. WILL CONTINUE TO MONITOR Q1HR AND PRN.
[2020-08-10 07:40] LABS: Potassium 3.1 mmol/L (3.5-5.1)
[2020-08-10 07:50] LABS: BUN/Creatinine Ratio 22.2; Calcium 8.8 mg/dL (8.5-10.1)
[2020-08-10 07:52] LABS: Basophils # (auto) 0 10 ^3/uL (0-0.2); Basophils % (auto) 0.1 % (0.0-2.0); Eosinophils # (auto) 0.1 10 ^3/uL (0-0.8); Eosinophils % (auto) 0.9 % (0.0-7.0); Hematocrit 37.3 % (41.0-53.0); Hemoglobin 12.5 g/dL (13.5-17.5); Lymphocytes # (auto) 1.4 10 ^3/uL (0.4-5.4); Lymphocytes % (auto) 13.4 % (10.0-50.0); Mean Corpuscular Hemoglobin 30.1 pg (28.0-32.0); Mean Corpuscular Hgb Conc. 33.6 g/dL (32.0-36.0); Mean Corpuscular Volume 89.5 fL (80.0-100.0); Monocytes # (auto) 1.6 10 ^3/uL (0-1.3); Monocytes % (auto) 15.6 % (0.0-12.0); Neutrophils # (auto) 7.1 10 ^3/uL (1.6-8.6); Nucleated Red Blood Cells % 0.1 %; Platelet Count (auto) 262 10^3/uL (140-450); Red Blood Cells 4.17 10^6/uL (4.5-5.90); Red Cell Distribution Width 12.5 % (11.8-14.3); White Blood Cell 10.1 10^3/uL (4.4-10.8)
[2020-08-10 08:00] VITALS: BP 102/63
[2020-08-10] MEDS: levETIRAcetam 500 MG TAB PO SCH ×2 (09:14→22:17)
[2020-08-10 12:00] VITALS: BP 106/57
[2020-08-10 17:00] VITALS: BP 115/68
--- NOTE | 2020-08-10 20:00 | NUR ---
Opening note Assumed care of patient, patient is alert and awake. No sob or distress noted. POC reviewed. All questions answered. Bed is locked in lowest position, side rails up x2. Call light within reach.
[2020-08-10 21:48] VITALS: BP 105/62
[2020-08-10] MEDS: AMITRIPTYLINE HCL 25 MG TAB PO SCH (22:18)
[2020-08-11] MEDS: VANCOMYCIN 1GM/250ML 250 ML IV SCH (04:42)
[2020-08-11 04:48] VITALS: BP 103/64
[2020-08-11] MEDS: ACCU-CHEK COMFORT CURVE STRIP VI SCH ×4 (06:22→22:11)
[2020-08-11] MEDS: PIPERACILLIN-TAZOB 3.375GM 100 ML IV SCH ×3 (06:23→22:10)
[2020-08-11] MEDS: InsuLIN REG 1unit/0.01ml Soln (100units/ml) SC SCH ×4 (06:31→22:00)
[2020-08-11 08:00] VITALS: BP 102/56
[2020-08-11 08:15] LABS: Basophils # (auto) 0.1 10 ^3/uL (0-0.2); Basophils % (auto) 0.5 % (0.0-2.0); Eosinophils # (auto) 0.1 10 ^3/uL (0-0.8); Hematocrit 37.4 % (41.0-53.0); Hemoglobin 12.5 g/dL (13.5-17.5); Lymphocytes # (auto) 1.8 10 ^3/uL (0.4-5.4); Lymphocytes % (auto) 14.5 % (10.0-50.0); Mean Corpuscular Hemoglobin 30.1 pg (28.0-32.0); Mean Corpuscular Hgb Conc. 33.4 g/dL (32.0-36.0); Mean Corpuscular Volume 89.9 fL (80.0-100.0); Monocytes # (auto) 1.7 10 ^3/uL (0-1.3); Monocytes % (auto) 13.6 % (0.0-12.0); Neutrophils # (auto) 8.8 10 ^3/uL (1.6-8.6); Neutrophils % (auto) 70.4 % (37.0-80.0); Platelet Count (auto) 292 10^3/uL (140-450); Red Blood Cells 4.16 10^6/uL (4.5-5.90); Red Cell Distribution Width 12.7 % (11.8-14.3); White Blood Cell 12.5 10^3/uL (4.4-10.8)
[2020-08-11 08:35] LABS: Calcium 9.3 mg/dL (8.5-10.1); Potassium 3.3 mmol/L (3.5-5.1)
[2020-08-11 08:38] LABS: BUN/Creatinine Ratio 11.1
[2020-08-11] MEDS: levETIRAcetam 500 MG TAB PO SCH ×2 (09:37→22:11)
[2020-08-11 12:00] VITALS: BP 102/58
[2020-08-11] MEDS ORDERED: POTASSIUM EFFERVESENT TAB 25 MEQ PO ONE (12:30)
[2020-08-11 16:00] VITALS: BP 106/58
--- NOTE | 2020-08-11 20:45 | NUR ---
Patient transferred to room 201 Assumed care of patient, awake and alert x 3. No S/S of distress/SOB or pain. Patient transferred to bed without incident. Board updated. Patient continued on 3 l/min NC. Instructed on POC and to call for assist PRN, will continue to monitor for changes Q1hr and PRN.
--- NOTE | 2020-08-11 20:50 | NUR ---
Patient transferred off unit to central: Patient transferred off unit to central. Report given to Balta MUNOZ and is to assume care of patient. All questions answered. Addendum: 08/11/20 at 2050 by Ya Rosenberg RN RN Patient transferred with all of his belongings and tolerated well.
[2020-08-11 22:00] VITALS: BP 94/55
[2020-08-11 22:09] VITALS: BP 112/60
[2020-08-11] MEDS: AMITRIPTYLINE HCL 25 MG TAB PO SCH (22:11)
[2020-08-12 05:00] VITALS: BP 104/56
--- NOTE | 2020-08-12 05:01 | NUR ---
Paging hospitalist to notify of decreased urine output. Urine output is 275 mls in 12 hour, averaging 23 mls/hr. Patient is not receiving IV fluids. BP is 107/56.
[2020-08-12] MEDS ORDERED: SODIUM CHLORIDE 0.9% 500 ML IV ONE (05:15)
[2020-08-12] MEDS: PIPERACILLIN-TAZOB 3.375GM 100 ML IV SCH ×3 (06:29→21:06)
[2020-08-12] MEDS: ACCU-CHEK COMFORT CURVE STRIP VI SCH ×4 (06:29→21:07)
[2020-08-12] MEDS: InsuLIN REG 1unit/0.01ml Soln (100units/ml) SC SCH ×4 (06:29→21:24)
--- NOTE | 2020-08-12 07:55 | NUR ---
Opening Shift Note Assumed care of patient, awake and alert. No S/S of distress/SOB or pain. Instructed on POC and to call for assist PRN, will continue to monitor for changes Q1hr and PRN. Bed locked in lowest position with two side rails up and call light in reach.
[2020-08-12 08:00] VITALS: BP 100/56
[2020-08-12 09:00] VITALS: BP 100/56
[2020-08-12] MEDS: levETIRAcetam 500 MG TAB PO SCH ×2 (10:00→21:07)
--- NOTE | 2020-08-12 11:02 | NUR ---
Nutrition Assessment Est energy needs 9362-3920 kcal (25-30 kcal/kg BW 68.2kg) Est protein needs 68-75 (1-1.1g/kg BW 68.2kg) Will reassess prn. Addendum: 08/12/20 at [address] Amended: Links added.
[2020-08-12 13:00] VITALS: BP 122/65
[2020-08-12] MEDS ORDERED: IOHEXOL 350 MG/ML 100ML IJ ONE (13:14)
--- NOTE | 2020-08-12 14:30 | NUR ---
PATIENT AGREES TO CT WITH CONTRAST. VERBALIZED UNDERSTANDING, WAS ABLE TO REPEAT TO ME THE PROCEDURE. ALSO SPOKE TO AND SON AND THEY AGREE TO HAVE CT WITH CONTRAST.
--- NOTE | 2020-08-12 15:49 | NUR ---
REPORT GIVEN TO DEVIKA
[2020-08-12] MEDS ORDERED: VANCOMYCIN PER PHARMACY 0 MG IV SCH (16:00)
--- NOTE | 2020-08-12 16:21 | NUR ---
PATIENT TO ROOM 283. TELE MONITOR SWITCHED- BOX 61. PATIENT WAS ORIENTED TO ROOM BY MYSELF AND MIKA BELTRAN WHO HELPED ME TRANSLATE. PATIENT IS ABLE TO ANSWER WHO HE IS, DATE OF AND THAT HE IS IN THE HOSPITAL BUT IS NOT ABLE TO COMMUNICATE SITUATION. PATIENT IS NOT IN ANY DISTRESS AND HAS NO COMPLAINTS OF PAIN. BED ALARM IS ON, BED LOW AND LIGHT IN REACH.
[2020-08-12] MEDS ORDERED: SODIUM CHL 3% 500 ML BAG IN ONE (16:30)
[2020-08-12] MEDS ORDERED: SODIUM CHLORIDE 0.9 % NEB SOLN 3ML NEB ONE (16:41)
--- NOTE | 2020-08-12 16:50 | NUR ---
HYPERTONIC SOLUTION FOR SPUTUM INDUCITON ORDERED WITH PHARMACY AND WILL BE READY IN 20 MINS. NOC RT WILL BE NOTIFIED.
[2020-08-12 16:52] VITALS: BP 101/58
[2020-08-12] MEDS ORDERED: VANCOMYCIN 1GM/250ML 250 ML IV ONE (17:00)
[2020-08-12] MEDS: CIPROFLOXACIN 0.3%OPTH(EYE) SOL 5ML LEFTEYE SCH ×2 (18:00→21:06)
--- NOTE | 2020-08-12 18:23 | NUR ---
SPOKE WITH PHARMACIST EUGENIO ABOUT PATIENT EMAR EYEDROPS WHICH WE DO NOT CARRY. SHE INFORMED ME SHE WOULD PLACE A CALL TO THE MD AND GET BACK WITH ME ABOUT ALTERNATIVES.
--- NOTE | 2020-08-12 19:24 | NUR ---
Respiratory note: UNABLE TO ADMINISTER SODIUM CHLORIDE FOR PT TO PRODUCE SPUTUM AT THIS TIME. PT CURRENTLY DOES NOT UNDERSTAND WHERE HE IS AND KEEPS YELLING AND ASKING FOR THE POLICE. WILL CONTINUE TO MONITOR AND TRY AGAIN AT A LATER TIME.
--- NOTE | 2020-08-12 20:00 | NUR ---
OPENING NOTE Received report from RN, Rosio. Patient is A&O X's 3 but is confused to current situation. Patient states his name/birthday and that he is in the hospital. Patient saying things that do not make sense to the current situation. SENIOR LOAN PROCESSOR at bedside to help translate. Educated patient on POC and to use call light when in need of any assistance. Patient is receiving 3L O2 via N.C. No s/s of distress noted and patient reports no pain. Bed is in lowest/locked position with padded side rails up X's 2 and call light is within reach of patient. Bed alarm on for safety. Will continue care.
[2020-08-12] MEDS: AMITRIPTYLINE HCL 25 MG TAB PO SCH (21:07)
[2020-08-12 22:00] VITALS: BP 106/65
[2020-08-13] MEDS: CIPROFLOXACIN 0.3%OPTH(EYE) SOL 5ML LEFTEYE SCH ×6 (02:02→22:50)
--- NOTE | 2020-08-13 02:55 | NUR ---
NOTE ABOUT AFB CULTURE Per report, day shift RN did not know what AFB test to order. This RN spoke to lab about which test should be ordered for a rule out TB patient. Per lab, all of them are send outs but to call [facility] that opens at 0800 because they will know more about what test to order for this patient. Will inform day shift to follow up with [facility]. This RN is still encouraging patient to provide respiratory sample for this. Patient not producing anything at this time.
[2020-08-13 05:00] VITALS: BP 114/68
--- NOTE | 2020-08-13 05:20 | NUR ---
IV insertion IV access obtained, via clean sterile technique by inserting 22 gauge catheter at left ac after one attempt. IV secured properly. No trauma to site. Patient tolerated well. 20G IV to right AC was found partially out. Catheter was then fully removed. Catheter intact. NO trauma noted to site.
[2020-08-13] MEDS ORDERED: SODIUM CHL 3% 500 ML BAG IN ONE (06:00)
[2020-08-13] MEDS: PIPERACILLIN-TAZOB 3.375GM 100 ML IV SCH ×3 (06:17→22:49)
[2020-08-13] MEDS: ACCU-CHEK COMFORT CURVE STRIP VI SCH ×4 (06:18→22:50)
[2020-08-13] MEDS: InsuLIN REG 1unit/0.01ml Soln (100units/ml) SC SCH ×4 (06:18→22:00)
--- NOTE | 2020-08-13 06:19 | NUR ---
lab lab was unsuccessful at drawing patient's blood after an attempt. patient was a hard stick. They will come back at a later time to try again.
--- NOTE | 2020-08-13 07:08 | NUR ---
OPENING SHIFT NOTES Assumed care of patient from night shift manager RN. Patient is alert and oriented x1, patient is very confused, pulling at mock catheter and yelling. He was oriented to place time and situation. He is on oxygen at 3L/min via nasal cannula, saturation 94%. His mock is draining light pink urine, no tubing loops or kinks noted. Bed is locked, in the lowest position, side rails are up x2 and call light is in reach. Patient was encouraged to call for assistance as needed. Will inform broker in charge on the possibility of a sitter.
--- NOTE | 2020-08-13 07:45 | NUR ---
Respiratory note: PT CURRENTLY DOES NOT UNDERSTAND WHERE HE IS AND KEEPS YELLING UNABLE TO PRODUCE ANY SPUTUM AT THIS TIME. PT ALSO REFUSING HYPERTONIC MEDNEB TX. WILL CONTINUE TO MONITOR AND TRY AGAIN AT A LATER TIME. RN MADE AWARE.
--- NOTE | 2020-08-13 08:55 | NUR ---
PATIENT REFUSING LABS Per tech patient is refusing labs, will attempt to redraw later.
[2020-08-13 09:00] VITALS: BP 137/81
[2020-08-13] MEDS ORDERED: IOHEXOL 300 MG/ML 100ML BOTTLE IJ ONE (09:48)
[2020-08-13] MEDS: levETIRAcetam 500 MG TAB PO SCH ×2 (09:52→22:50)
--- NOTE | 2020-08-13 09:53 | NUR ---
PATIENT TAKEN TO CT ACCOMPANIED BY TECH, No signs of distress noted.
--- NOTE | 2020-08-13 10:30 | NUR ---
PATIENT BACK FROM CT placed back on bedside oxygen. No signs of distress noted.
--- NOTE | 2020-08-13 10:42 | NUR ---
SHERRY AT BEDSIDE updated on the patient status. Per MD patient may need possible bronchoscopy, however the patient is altered and no procedure will be done with the patient ALOC. No new orders received.
[2020-08-13] MEDS: VANCOMYCIN 1GM/250ML 250 ML IV SCH (11:54)
[2020-08-13 13:00] VITALS: BP 127/81
--- NOTE | 2020-08-13 13:41 | NUR ---
Respiratory note: PT REFUSING ABG AT THIS TIME. NO RESPIRATORY DISTRESS NOTED. RN AND DR. GRANT.
[2020-08-13 17:00] VITALS: BP 131/75
--- NOTE | 2020-08-13 20:33 | NUR ---
at bedside to assess pt and obtain sputum sample. Hypertonic solution administer via nebulizer. Pt on 4lpm nc pox 94-95% PT acting strange. Pt having a full conversation in [place]an with himself. This RT asked pt who he is talking to, pt states in [place]an " my fucken uncle, right there!" pt looking to his left side toward restroom, no one is there. 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 Will communicate behavior to RN and MD. Post tx, instructed pt to give a good cough and bring out any sputum he can. Pt gave 3 great attempts sputum sample obtained and will be sending to lab.
[2020-08-13 21:30] VITALS: BP 129/86
[2020-08-13 22:08] LABS: Basophils # (auto) 0 10 ^3/uL (0-0.2); Basophils % (auto) 0.2 % (0.0-2.0); Eosinophils # (auto) 0.1 10 ^3/uL (0-0.8); Eosinophils % (auto) 0.4 % (0.0-7.0); Hematocrit 41.9 % (41.0-53.0); Hemoglobin 14.1 g/dL (13.5-17.5); Lymphocytes # (auto) 1.1 10 ^3/uL (0.4-5.4); Lymphocytes % (auto) 8.3 % (10.0-50.0); Mean Corpuscular Hemoglobin 29.7 pg (28.0-32.0); Mean Corpuscular Hgb Conc. 33.7 g/dL (32.0-36.0); Mean Corpuscular Volume 88.2 fL (80.0-100.0); Monocytes # (auto) 1.6 10 ^3/uL (0-1.3); Monocytes % (auto) 11.9 % (0.0-12.0); Neutrophils # (auto) 10.6 10 ^3/uL (1.6-8.6); Neutrophils % (auto) 79.2 % (37.0-80.0); Platelet Count (auto) 306 10^3/uL (140-450); Red Blood Cells 4.75 10^6/uL (4.5-5.90); Red Cell Distribution Width 12.7 % (11.8-14.3); White Blood Cell 13.4 10^3/uL (4.4-10.8)
[2020-08-13] MEDS ORDERED: LORazepam 2MG/ML-1ML VIAL IV PRN (22:15)
[2020-08-13 22:22] LABS: Albumin 2.9 g/dL (3.4-5.0); Anion Gap 7 (5-15); Blood Urea Nitrogen 18 mg/dL (7-18); Calcium 8.8 mg/dL (8.5-10.1); Carbon Dioxide 34 mmol/L (21-32); Chloride 97 mmol/L (98-107); Glucose 79 mg/dL (74-106); Potassium 3.6 mmol/L (3.5-5.1); Sodium 138 mmol/L (136-145)
[2020-08-13 22:24] LABS: Alanine Aminotransferase 16 U/L (16-61); Aspartate Aminotransferase 22 U/L (15-37); BUN/Creatinine Ratio 7.7; GFR African American 38 mL/min; GFR Non-African American 31 mL/min
[2020-08-13 22:26] LABS: Alkaline Phosphatase 68 U/L (45-117); Bilirubin, Total 0.4 mg/dL (0.2-1.0); Total Protein 7.1 g/dL (6.4-8.2)
[2020-08-13] MEDS: AMITRIPTYLINE HCL 25 MG TAB PO SCH (22:50)
[2020-08-14] MEDS: CIPROFLOXACIN 0.3%OPTH(EYE) SOL 5ML LEFTEYE SCH ×6 (02:30→22:00)
[2020-08-14 05:00] VITALS: BP_SYST 116; BP_SYST 134; BP_DIAS 59; BP_DIAS 76
[2020-08-14] MEDS: VANCOMYCIN 1GM/250ML 250 ML IV SCH (05:35)
[2020-08-14] MEDS ORDERED: SODIUM CHL 3% 500 ML BAG IN ONE (06:00)
[2020-08-14] MEDS: ACCU-CHEK COMFORT CURVE STRIP VI SCH (06:45)
[2020-08-14] MEDS: PIPERACILLIN-TAZOB 3.375GM 100 ML IV SCH (06:45)
[2020-08-14] MEDS: InsuLIN REG 1unit/0.01ml Soln (100units/ml) SC SCH (06:45)
[2020-08-14 07:25] LABS: Basophils # (auto) 0 10 ^3/uL (0-0.2); Basophils % (auto) 0.2 % (0.0-2.0); Eosinophils # (auto) 0.1 10 ^3/uL (0-0.8); Eosinophils % (auto) 0.5 % (0.0-7.0); Hematocrit 39.8 % (41.0-53.0); Hemoglobin 13.5 g/dL (13.5-17.5); Lymphocytes # (auto) 1.3 10 ^3/uL (0.4-5.4); Lymphocytes % (auto) 9.5 % (10.0-50.0); Mean Corpuscular Hgb Conc. 33.8 g/dL (32.0-36.0); Mean Corpuscular Volume 88.6 fL (80.0-100.0); Monocytes # (auto) 1.3 10 ^3/uL (0-1.3); Monocytes % (auto) 10.1 % (0.0-12.0); Neutrophils # (auto) 10.6 10 ^3/uL (1.6-8.6); Neutrophils % (auto) 79.7 % (37.0-80.0); Nucleated Red Blood Cells % 0.1 %; Platelet Count (auto) 315 10^3/uL (140-450); Red Blood Cells 4.49 10^6/uL (4.5-5.90); White Blood Cell 13.3 10^3/uL (4.4-10.8)
[2020-08-14 07:40] LABS: Albumin 2.4 g/dL (3.4-5.0); Calcium 9.3 mg/dL (8.5-10.1); Potassium 3.3 mmol/L (3.5-5.1)
[2020-08-14 07:44] LABS: Bilirubin, Total 0.5 mg/dL (0.2-1.0); Total Protein 6.7 g/dL (6.4-8.2)
--- NOTE | 2020-08-14 08:33 | NUR ---
OPENING SHIFT NOTE: PATIENT RESTING IN BED, ASLEEP AWOKEN A/OX1. RESPIRATIONS EVEN AND UNLABORED LUNG SOUNDS COARSE. THIS RN ATTEMPTING TO RE-ORIENT PATIENT, AND UPDATED ON PLAN OF CARE. MUÑOZ HUNG BELOW BLADDER FREE OF KINKS, CALL LIGHT WITHIN REACH, FALL PRECAUTIONS IN PLACE, WILL CONTINUE TO MONITOR.
[2020-08-14] MEDS ORDERED: SODIUM CHLORIDE 0.9% 1,000 ML IV SCH (08:45)
[2020-08-14 08:47] LABS: Folate (Folic Acid) 11.81 ng/mL (5.38-24)
[2020-08-14 09:00] VITALS: BP 120/79
[2020-08-14] MEDS: levETIRAcetam 500 MG TAB PO SCH ×2 (09:20→22:32)
--- NOTE | 2020-08-14 12:07 | NUR ---
sputum obtained at sent to lab
--- NOTE | 2020-08-14 12:39 | NUR ---
CALL FROM NIECE AND AUNT: UNABLE TO PROVIDE PASSWORD. FAMILY UPSET AND REPORTS THEY ARE FAMILY AND DO NOT COMMUNICATE WITH DAUGHTER AND . BULGARIAN SPEAKING RN GABRIELLE ALSO ATTEMPTING TO INFORM THE FAMILY OF HIPPAA POLICY. PATIENT UNABLE TO COMMUNICATE VIA TELEPHONE A/OX1.
[2020-08-14 13:00] VITALS: BP 118/72
[2020-08-14] MEDS: PIPERACILLIN-TAZOB 2.25GM 50 ML IV SCH ×2 (15:29→17:23)
[2020-08-14 17:00] VITALS: BP 118/63
--- NOTE | 2020-08-14 18:40 | NUR ---
CARE ENDORSED TO NOC RN.
--- NOTE | 2020-08-14 19:30 | NUR ---
Opening Shift Note Assumed care of patient, awake and alert. No S/S of distress/SOB or pain. Patient is confused AxOx2 Patient instructed on POC. Will continue to monitor for changes Q1hr and PRN. Fall precautions in place and call light within reach.
[2020-08-14 20:00] VITALS: BP 108/70
[2020-08-14] MEDS: SODIUM CHLORIDE 0.9% 1,000 ML IV SCH (20:00)
--- NOTE | 2020-08-14 21:11 | NUR ---
Dr. Mendiola at bedside to see patient and ordered to obtain consent for Lumbar Puncture. Patient is a Ecuadorean speaker, RN was advised by MD to call the family. RN called the , Chitra who also speaks only Ecuadorean and told RN to call the daughter Caroline. MD spoke to Caroline and explained the procedure, [place] verbalized understanding and give telephone consent to the MD. RN confirmed that the daughter is giving consent for the MD to do the Lumbar Puncture.
--- NOTE | 2020-08-14 21:20 | NUR ---
and RN inside the room to do the Lumbar Puncture, munitions factory worker Elisa also present for interpretation. However patient suddenly became confused and agitated when told him that his daughter Caroline consented for the procedure on his behalf. He started talking different things and that Caroline only consented because of life insurance. Patient refused to do the Lumbar Puncture.
[2020-08-14 22:00] VITALS: BP 108/70
[2020-08-14] MEDS: AMITRIPTYLINE HCL 25 MG TAB PO SCH (22:33)
[2020-08-15] MEDS: PIPERACILLIN-TAZOB 2.25GM 50 ML IV SCH ×3 (00:11→13:12)
--- NOTE | 2020-08-15 00:15 | NUR ---
IV insertion Patient pulled out IV line and tele box monitor. IV access obtained, via clean sterile technique by inserting 22 gauge catheter at R forearm after 1 attempt. IV secured properly. No trauma to site. Patient tolerated well.
[2020-08-15] MEDS: CIPROFLOXACIN 0.3%OPTH(EYE) SOL 5ML LEFTEYE SCH ×6 (02:15→22:16)
[2020-08-15 05:00] VITALS: BP 109/66
[2020-08-15 06:58] LABS: Basophils # (auto) 0 10 ^3/uL (0-0.2); Basophils % (auto) 0.2 % (0.0-2.0); Eosinophils # (auto) 0.1 10 ^3/uL (0-0.8); Eosinophils % (auto) 0.7 % (0.0-7.0); Hematocrit 36.7 % (41.0-53.0); Hemoglobin 12.7 g/dL (13.5-17.5); Lymphocytes % (auto) 9.6 % (10.0-50.0); Mean Corpuscular Hemoglobin 30.4 pg (28.0-32.0); Mean Corpuscular Hgb Conc. 34.6 g/dL (32.0-36.0); Mean Corpuscular Volume 87.6 fL (80.0-100.0); Monocytes # (auto) 1.2 10 ^3/uL (0-1.3); Monocytes % (auto) 11.1 % (0.0-12.0); Neutrophils # (auto) 8.4 10 ^3/uL (1.6-8.6); Neutrophils % (auto) 78.4 % (37.0-80.0); Platelet Count (auto) 290 10^3/uL (140-450); Red Blood Cells 4.18 10^6/uL (4.5-5.90); Red Cell Distribution Width 12.8 % (11.8-14.3); White Blood Cell 10.8 10^3/uL (4.4-10.8)
[2020-08-15 07:04] LABS: Potassium 3.1 mmol/L (3.5-5.1)
[2020-08-15] MEDS: SODIUM CHLORIDE 0.9% 1,000 ML IV SCH (07:20)
[2020-08-15 07:24] LABS: BUN/Creatinine Ratio 9.3; Calcium 8.9 mg/dL (8.5-10.1)
--- NOTE | 2020-08-15 07:30 | NUR ---
Opening Shift Note Assumed care of patient, awake and alert. No S/S of distress/SOB or pain. Instructed on POC and to call for assist PRN, will continue to monitor for changes Q1hr and PRN. Fall precautions in place per safety protocol.
[2020-08-15 09:00] VITALS: BP 122/86
[2020-08-15] MEDS: levETIRAcetam 500 MG TAB PO SCH ×2 (10:37→22:15)
--- NOTE | 2020-08-15 12:00 | NUR ---
Radiology Per Tj in Radiology, MRI cannot be done due to patient not knowing what type of penile implant he has. Family will be called to verify type of implant and documentation of implant. Will cont to monitor patient at this time.
[2020-08-15 13:00] VITALS: BP 135/90
--- NOTE | 2020-08-15 13:00 | NUR ---
Hospitalist MD Napier at bedside, aware of patient status, Including Low Potassium. New orders for potassium replacement received at this time. Will carry out new orders and cont to monitor patient.
--- NOTE | 2020-08-15 14:59 | NUR ---
Nutrition Followup Notes Pt wt is 67.2 kg Pt was sleeping when rounded this morning. Pt is with a CCHO 60g diet, appetite is poor aeb ave 30% PO intake x5 meals per RN doc. Encouraged pt to increase her PO intake. Pt stated she just has no appetite but will try to eat more of her meals. Est energy needs 8045-8311 kcal (25-30 kcal/kg BW 68.2kg) Est protein needs 68-75 (1-1.1g/kg BW 68.2kg) Will reassess prn. LABS: K 3.1 L, CREAT 1.93 H, GFR 39 L, ALB 2.4 L GI: Pt with no BM today per RN doc. BS: 16 mod risk. Refer to Wound Assessment report for further details. PES: Increased nutrient needs r/t increased needs for resp failure aeb pt with history of PNA, resp failure Comments Will continue to monitor PO status, skin status, pertinent labs and weight trends. Will f/u in 3-5 days 1) Continue to monitor po intake, labs, skin 2) refer pt to OPD on DC 3) Continue current plan of care
[2020-08-15] MEDS ORDERED: POTASSIUM CHL 20 Meq TABLET PO ONE (16:15)
--- NOTE | 2020-08-15 16:30 | NUR ---
Implant info Spoke to family in regards to patients inplant, Per Elisha, implant is plastic. Per Chitra she will have proof of type of implant faxed over from Dr. Yosef Heredia office. Awaiting fax at this time. Will cont to monitor patient.
--- NOTE | 2020-08-15 16:50 | NUR ---
Assessment Patient is a 50-year-old year old male who is confused. Assessment was completed with patient Chitra . Per Chitra prior to admission patient lived home with her and family. Per Chitra she helps patient with his ADLs. Chitra is patient caregiver and IHSS. Per Chitra patient has been having health problems for over 26 years. Per Chitra patient will return to his prior living arrangements post discharge and [facility] transportation to be arranged. Patient has a wheelchair and oxygen for home use. Per Chitra she would like patient to resume home health with [facility] upon d/c day. Informed Chitra she has a right to participate in all discharge planning. Chitra verbalized understanding and agreed to discharge plan home. Addendum: 08/15/20 at 1653 by ANA MAGANA Amended: Links added.
[2020-08-15 17:00] VITALS: BP 133/82
--- NOTE | 2020-08-15 17:00 | NUR ---
Infectious Disease Dr Melgar at bedside, aware of patient status. Per Dr Melgar, please obtain AFB Smear of Sputum for today as 3 negatives are needed to rule out TB. Will carry out new orders. Communication order place for Histoplasmosis Serology placed. This nurse Attempted to call Microbiology, however awaiting call back at this time for how to input order.
--- NOTE | 2020-08-15 18:15 | NUR ---
Round Found blood on patients sheets, when asked where the blood come from, patient replied "well from my finger". Patient bit part of nail off and bled. Bleeding has stopped, patient denies any pain and refusing to have it cleansed until after dinner. Will cont to monitor patient.
[2020-08-15] MEDS: PIPERACILLIN-TAZOB 3.375GM 100 ML IV SCH ×2 (18:20→23:45)
--- NOTE | 2020-08-15 18:51 | NUR ---
Implant Fax Received fax of patient penile implant indicating type of material for implant. Fax place in front of patients chart at this time. Will carry out in report.
[2020-08-15] MEDS ORDERED: SODIUM CHLORIDE 0.9% 1,000 ML IV ONE (19:00)
--- NOTE | 2020-08-15 19:19 | NUR ---
Endorsed care to Night ALEXANDER Garzon. Patient resting in bed, no distress, SOB, or pain noted at this time. RN aware of pending Urine, and Sputum collection for new AFB smear and urine Histoplasma antigen orders. Addendum: 08/15/20 at 1926 by JAX JUAREZ RN RN ALEXANDER Contreras
--- NOTE | 2020-08-15 19:30 | NUR ---
Opening Shift Note Assumed care of patient, awake and alert X3. No S/S of distress/SOB or pain. Instructed on POC and to call for assist PRN, will continue to monitor for changes Q1hr and PRN. Patient has a mock catheter for incontinence and is on 3L of O2. Bed at lowest position and call light within reach. Fall and seizure precautions in place
[2020-08-15 20:00] VITALS: BP 128/84
[2020-08-15 21:00] VITALS: BP 128/84
[2020-08-15] MEDS: AMITRIPTYLINE HCL 25 MG TAB PO SCH (22:15)
--- NOTE | 2020-08-15 23:30 | NUR ---
Spoke to daughter Caroline to explain to the patient that the MD is at bedside to do a lumbar puncture. Patient verbalized understanding. MD did lumbar puncture but was unsuccessful.
[2020-08-16] MEDS: CIPROFLOXACIN 0.3%OPTH(EYE) SOL 5ML LEFTEYE SCH ×6 (02:21→21:19)
[2020-08-16 05:00] VITALS: BP 124/78
[2020-08-16] MEDS: PIPERACILLIN-TAZOB 3.375GM 100 ML IV SCH ×3 (06:19→18:22)
--- NOTE | 2020-08-16 07:00 | NUR ---
Urine collected from patient for histoplasma antigen and sample sent to the lab.
--- NOTE | 2020-08-16 07:42 | NUR ---
Opening Shift Note Assumed care of patient, awake and alert X3. No S/S of distress/SOB or pain reported at this time. confusion noted, does not know he's in the hospital. Instructed on POC with Ethiopian staff for translate and to call for assist PRN, will continue to monitor for changes Q1hr and PRN. Patient has a mock catheter for incontinence and is on 2L oxygen via NC. Bed at lowest position and call light within reach. Fall and seizure precautions in place
[2020-08-16 08:00] VITALS: BP 121/73
[2020-08-16 09:00] VITALS: BP 121/73
[2020-08-16] MEDS: levETIRAcetam 500 MG TAB PO SCH ×2 (10:53→21:19)
--- NOTE | 2020-08-16 10:55 | NUR ---
WHOLE LINEN CHANGE PATIENT HAD A BOWEL MOVEMENT, OBSERVED TRYING TO GET OUT OF BED DUE TO CONFUSION
[2020-08-16 13:00] VITALS: BP 139/87
--- NOTE | 2020-08-16 13:20 | NUR ---
patient off unit for MRI will resume scheduled meds upon return to unit
[2020-08-16] MEDS ORDERED: VANCOMYCIN PER PHARMACY 0 MG IV SCH (15:15)
--- NOTE | 2020-08-16 16:20 | NUR ---
Per pharmacy, one time order of Potassium PO med will be held until new lab is drawn.
[2020-08-16] MEDS: VANCOMYCIN 1GM/250ML 250 ML IV SCH (16:47)
[2020-08-16 16:49] VITALS: BP 144/92
[2020-08-16] MEDS: Glucerna Carbsteady SHAKE Vanilla 8oz PO SCH (18:24)
[2020-08-16 18:48] LABS: BUN/Creatinine Ratio 8.2; Potassium 3.1 mmol/L (3.5-5.1)
--- NOTE | 2020-08-16 18:50 | NUR ---
unable to collect sputum sample, patient not coughing. Endorsed to noc shift rn.
[2020-08-16] MEDS ORDERED: POTASSIUM CHL 20 Meq TABLET PO ONE ×2 (19:00→19:30)
--- NOTE | 2020-08-16 19:15 | NUR ---
Opening Shift Note Assumed care of patient, awake, alert. Confused, Indian speaking only, Requiring ticket puller, No S/S of distress/SOB or pain. bed in low locked position, siderailsx2 up, call light within reach. non skid socks on. bed alarm on.Reviewed charts and medication. Safety fall precaution observed. Instructed on POC and to call for assist PRN, will continue to monitor for changes Q1hr and PRN.
--- NOTE | 2020-08-16 20:00 | NUR ---
Patient had BM. SHUTTLE REPAIRER Briseida inside the room to help with Polish communication. Cleaned patient. Tolerated.
--- NOTE | 2020-08-16 21:00 | NUR ---
Inform the CN Aaliyah that patient is confused and need a sitter. CN said that we don't have available sitter right now. Will try to stay near patient's room often and monitor patient all the time.
[2020-08-16] MEDS: AMITRIPTYLINE HCL 25 MG TAB PO SCH (21:19)
[2020-08-16 22:52] VITALS: BP 131/86
--- NOTE | 2020-08-16 23:00 | NUR ---
Patient trying to get up and pull IV line and mock catheter. will keep on monitoring patient.
--- NOTE | 2020-08-17 00:20 | NUR ---
IV removal IV DC'd with clean sterile technique, catheter fully intact. Pressure dressing applied to site. Patient tolerated well. NOTE:
--- NOTE | 2020-08-17 01:00 | NUR ---
IV insertion IV access obtained, via clean sterile technique by inserting 22 gauge catheter at LEFT FOREARM after 1 attempt. IV secured properly. No trauma to site. Patient tolerated well. NOTE:
[2020-08-17] MEDS: PIPERACILLIN-TAZOB 3.375GM 100 ML IV SCH ×4 (01:16→18:55)
[2020-08-17] MEDS: CIPROFLOXACIN 0.3%OPTH(EYE) SOL 5ML LEFTEYE SCH ×6 (01:50→21:49)
--- NOTE | 2020-08-17 02:02 | NUR ---
Patient asleep right now. Head of the bed elevated. Patient trying to pull oxygen out of nose. will continue to monitor .
--- NOTE | 2020-08-17 03:39 | NUR ---
Patient asleep now. No signs of distress and SOB. will continue to monitor.
--- NOTE | 2020-08-17 05:00 | NUR ---
unable to collect sputum sample, patient not coughing out sputum. Endorsed to morning shift rn.
[2020-08-17 05:40] VITALS: BP 124/69
[2020-08-17 06:36] LABS: Basophils # (auto) 0 10 ^3/uL (0-0.2); Basophils % (auto) 0.2 % (0.0-2.0); Eosinophils # (auto) 0.1 10 ^3/uL (0-0.8); Hematocrit 38.9 % (41.0-53.0); Hemoglobin 13.5 g/dL (13.5-17.5); Lymphocytes # (auto) 1.4 10 ^3/uL (0.4-5.4); Lymphocytes % (auto) 14.6 % (10.0-50.0); Mean Corpuscular Hemoglobin 30.5 pg (28.0-32.0); Mean Corpuscular Hgb Conc. 34.7 g/dL (32.0-36.0); Mean Corpuscular Volume 87.9 fL (80.0-100.0); Monocytes % (auto) 11.1 % (0.0-12.0); Neutrophils # (auto) 6.8 10 ^3/uL (1.6-8.6); Neutrophils % (auto) 73.1 % (37.0-80.0); Nucleated Red Blood Cells % 0.1 %; Platelet Count (auto) 332 10^3/uL (140-450); Red Blood Cells 4.43 10^6/uL (4.5-5.90); Red Cell Distribution Width 12.6 % (11.8-14.3); White Blood Cell 9.2 10^3/uL (4.4-10.8)
[2020-08-17 06:49] LABS: INR 1.08 (0.9-1.15)
[2020-08-17 06:53] LABS: BUN/Creatinine Ratio 7.8; Calcium 8.9 mg/dL (8.5-10.1); Potassium 3.7 mmol/L (3.5-5.1)
--- NOTE | 2020-08-17 06:57 | NUR ---
Closing shift report Patient no SOB, no acute distress seen, head of the bed elevated. Bed in low locked position, call light within reach, side rails up x2. Bed alarm on.
--- NOTE | 2020-08-17 07:40 | NUR ---
Opening Shift Note Assumed care of patient from noc shift rn, awake and alert X3. No S/S of distress/SOB or pain reported at this time. confusion noted. Instructed on POC with Latvian staff for translate and to call for assist PRN, will continue to monitor for changes Q1hr and PRN. Patient has a mock catheter for incontinence and is on 2L oxygen via NC. Bed at lowest position and call light within reach. Fall and seizure precautions in place
[2020-08-17 08:00] VITALS: BP 131/82
[2020-08-17] MEDS: Glucerna Carbsteady SHAKE Vanilla 8oz PO SCH ×3 (08:21→18:10)
[2020-08-17] MEDS: levETIRAcetam 500 MG TAB PO SCH ×2 (08:22→21:50)
[2020-08-17 09:22] VITALS: BP 131/82
--- NOTE | 2020-08-17 11:10 | NUR ---
Spoke to with patient's librarian, updated on patient's current status.
[2020-08-17 12:37] VITALS: BP 128/79
--- NOTE | 2020-08-17 13:30 | NUR ---
Dr. Cobb at bedside, assessed patient. aware that last sputum to r/o TB is currently pending. Patient not able to given sample at this time.
[2020-08-17] MEDS: VANCOMYCIN 1GM/250ML 250 ML IV SCH (15:50)
[2020-08-17 16:53] VITALS: BP 121/85
--- NOTE | 2020-08-17 19:05 | NUR ---
Opening Shift Note Assumed care of patient from am shift rn, awake and alert X3. No S/S of distress/SOB or pain reported at this time. confusion noted. Instructed on POC with Cameroonian staff for translate and to call for assist PRN, will continue to monitor for changes Q1hr and PRN. Patient has a mock catheter for incontinence and is on 2L oxygen via NC. Bed at lowest position and call light within reach. Fall and seizure precautions in place
--- NOTE | 2020-08-17 21:04 | NUR ---
DR. ELIZABETH AT PATIENT'S BEDSIDE ASSESSING THE PATIENT. WITH BI APPLICATION DEVELOPER JANUARY TO .
--- NOTE | 2020-08-17 21:30 | NUR ---
SEND AFB SPUTUM SAMPLE TO LAB.
[2020-08-17] MEDS: AMITRIPTYLINE HCL 25 MG TAB PO SCH (21:50)
[2020-08-17 22:00] VITALS: BP 130/89
--- NOTE | 2020-08-17 22:00 | NUR ---
DR. ELIZABETH ORDERED LUMBAR PUNCTURE AND MRI OF THE NECK FOR TOMORROW. WILL INFORM PATIENT HE IS NPO AFTER MIDNIGHT AND HAS CONFIRMED TO RADIOLOGY THAT THEY SAW THE ORDER. PATIENT AGREED.
[2020-08-17] MEDS ORDERED: LORazepam 2MG/ML-1ML VIAL IV PRN (22:15)
--- NOTE | 2020-08-17 23:14 | NUR ---
CALLED JANNA PATIENT'S DAUGHTER TO DO TELEPHONE CONSENT FOR LUMBAR PUNCTURE AND CONSENT FOR BLOOD TRANSFUSION WITH DIEGO NAYAK RN A WITNESS.
[2020-08-18] MEDS: PIPERACILLIN-TAZOB 3.375GM 100 ML IV SCH ×4 (00:20→17:30)
[2020-08-18] MEDS: CIPROFLOXACIN 0.3%OPTH(EYE) SOL 5ML LEFTEYE SCH ×6 (02:58→22:21)
[2020-08-18 05:00] VITALS: BP 128/80
--- NOTE | 2020-08-18 05:00 | NUR ---
CHG WIPES AND COMPLETE LINEN CHANGE. PATIENT TOLERATED.
--- NOTE | 2020-08-18 05:32 | NUR ---
PATIENT HAVING BM. USE BEDPAN. Addendum: 08/18/20 at 0628 by COREY TALLEY RN RN WRONG PATIENT.
[2020-08-18 07:09] LABS: Basophils # (auto) 0 10 ^3/uL (0-0.2); Basophils % (auto) 0.3 % (0.0-2.0); Eosinophils # (auto) 0.1 10 ^3/uL (0-0.8); Eosinophils % (auto) 0.8 % (0.0-7.0); Hematocrit 39.8 % (41.0-53.0); Hemoglobin 13.3 g/dL (13.5-17.5); Lymphocytes # (auto) 1.5 10 ^3/uL (0.4-5.4); Lymphocytes % (auto) 13.4 % (10.0-50.0); Mean Corpuscular Hemoglobin 29.7 pg (28.0-32.0); Mean Corpuscular Hgb Conc. 33.5 g/dL (32.0-36.0); Mean Corpuscular Volume 88.7 fL (80.0-100.0); Monocytes % (auto) 9.2 % (0.0-12.0); Neutrophils # (auto) 8.5 10 ^3/uL (1.6-8.6); Neutrophils % (auto) 76.3 % (37.0-80.0); Nucleated Red Blood Cells % 0.1 %; Platelet Count (auto) 341 10^3/uL (140-450); Red Blood Cells 4.49 10^6/uL (4.5-5.90); Red Cell Distribution Width 12.9 % (11.8-14.3); White Blood Cell 11.1 10^3/uL (4.4-10.8)
[2020-08-18 07:13] LABS: BUN/Creatinine Ratio 6.9; Potassium 3.3 mmol/L (3.5-5.1)
[2020-08-18] MEDS: Glucerna Carbsteady SHAKE Vanilla 8oz PO SCH ×3 (08:00→17:31)
[2020-08-18 09:00] VITALS: BP 128/79
[2020-08-18] MEDS: levETIRAcetam 500 MG TAB PO SCH ×2 (09:27→22:21)
--- NOTE | 2020-08-18 11:05 | NUR ---
ACESYN STARTED AT THIS TIME, DID NOT SAVE IN COMPUTER.
[2020-08-18] MEDS ORDERED: LIDOCAINE 2%HCL (LOCAL ANESTH.) INJ 20ML MDV ONE (12:21)
--- NOTE | 2020-08-18 12:26 | NUR ---
Nutrition Followup Notes Pt wt is 63.5 kg Pt was sleeping when rounded this morning. Pt is with a CCHO 60g diet, appetite is improved aeb ave 50% PO intake x5 meals per RN doc. Est energy needs 4585-2752 kcal (25-30 kcal/kg BW 68.2kg) Est protein needs 68-75 (1-1.1g/kg BW 68.2kg) Will reassess prn. LABS: CREAT 1.74 H, GFR 44 L, ALB 2.4 L GI: Pt with 1 BM on 08/17 per RN doc. BS: 16 mod risk. Refer to Wound Assessment report for further details. PES: Increased nutrient needs r/t increased needs for resp failure aeb pt with history of PNA, resp failure Comments Will continue to monitor PO status, skin status, pertinent labs and weight trends. Will f/u in 3-5 days 1) Continue to monitor po intake, labs, skin 2) refer pt to OPD on DC 3) Continue current plan of care
[2020-08-18 13:00] VITALS: BP 135/83
[2020-08-18 14:55] LABS: CSF White Blood Cells 0 CUMM (0-5)
[2020-08-18 14:58] LABS: Protein, CSF 70.6 mg/dL (15-45)
[2020-08-18 17:00] VITALS: BP 127/88
[2020-08-18 21:53] VITALS: BP 149/96
[2020-08-18] MEDS: AMITRIPTYLINE HCL 25 MG TAB PO SCH (21:58)
[2020-08-19] MEDS: PIPERACILLIN-TAZOB 3.375GM 100 ML IV SCH ×3 (00:05→11:37)
[2020-08-19] MEDS: CIPROFLOXACIN 0.3%OPTH(EYE) SOL 5ML LEFTEYE SCH ×6 (02:34→21:58)
[2020-08-19 05:00] VITALS: BP 111/52
--- NOTE | 2020-08-19 07:30 | NUR ---
Opening Shift Note Assumed patient care from ANGUS MUNOZ.
--- NOTE | 2020-08-19 07:45 | NUR ---
Closing note Endorsed care to day shift RN. no sob or distress noted.
--- NOTE | 2020-08-19 07:49 | NUR ---
Lab Spoke with aminata Pablo, regarding Dr. Mancilla orders for urine histoplasma. Per Bev, specimen received yesterday 08/18 @ 7957 and has been sent out for processing.
--- NOTE | 2020-08-19 08:30 | NUR ---
at Bedside Dr. Mendiola at bedside discussing plan of care with patient. Per continue with TB isolation; meningitis negative. Patient currently sitting up in bed, no signs of distress at this time; patient is AOx4 at this time, oriented to place, time, self, and situation. Safety precautions in place, will continue to monitor q1hr and PRN.
[2020-08-19] MEDS: Glucerna Carbsteady SHAKE Vanilla 8oz PO SCH ×3 (08:40→18:05)
[2020-08-19 09:00] VITALS: BP 116/65
[2020-08-19] MEDS: levETIRAcetam 500 MG TAB PO SCH ×2 (09:03→21:58)
--- NOTE | 2020-08-19 10:10 | NUR ---
at Station Dr. Montana at station. Per Dr. Montana, plan for bronchoscopy tomorrow. Spoke with patient's , Chitra.
--- NOTE | 2020-08-19 12:26 | NUR ---
Called Micro Per Micro, will call back with AFB result as it was sent out.
[2020-08-19 13:00] VITALS: BP 112/84
--- NOTE | 2020-08-19 14:46 | NUR ---
Called Micro Called Micro regarding pending Afb results. Per micro , AFB: negative stain but culture is still pending.
--- NOTE | 2020-08-19 15:43 | NUR ---
at Station Dr. Mancilla at station discussing plan of care. MD notified of micro results. Per Dr. Mancilla, okay to discontinue isolation precautions. Will paged Dr. Napier with update.
--- NOTE | 2020-08-19 15:48 | NUR ---
Paged Paged Dr. Napier regarding Micro results.
--- NOTE | 2020-08-19 15:56 | NUR ---
Paged Infectious Disease Paged Isa in infectious disease.
--- NOTE | 2020-08-19 16:51 | NUR ---
Kodak MOLINA Pagedelia Napier to report pending AFB.
[2020-08-19 17:10] VITALS: BP 124/64
[2020-08-19] MEDS: AZITHROMYCIN 250 MG TAB PO SCH (18:11)
[2020-08-19] MEDS: AMITRIPTYLINE HCL 25 MG TAB PO SCH (21:58)
[2020-08-19 22:00] VITALS: BP 123/69
[2020-08-20] MEDS: CIPROFLOXACIN 0.3%OPTH(EYE) SOL 5ML LEFTEYE SCH ×6 (02:27→22:51)
[2020-08-20 05:00] VITALS: BP 96/53
[2020-08-20 06:01] LABS: Basophils # (auto) 0 10 ^3/uL (0-0.2); Basophils % (auto) 0.3 % (0.0-2.0); Eosinophils # (auto) 0.1 10 ^3/uL (0-0.8); Hematocrit 37.8 % (41.0-53.0); Hemoglobin 12.9 g/dL (13.5-17.5); Lymphocytes # (auto) 1.4 10 ^3/uL (0.4-5.4); Lymphocytes % (auto) 14.9 % (10.0-50.0); Mean Corpuscular Hemoglobin 30.3 pg (28.0-32.0); Monocytes % (auto) 10.5 % (0.0-12.0); Neutrophils # (auto) 7.1 10 ^3/uL (1.6-8.6); Neutrophils % (auto) 73.3 % (37.0-80.0); Platelet Count (auto) 332 10^3/uL (140-450); Red Blood Cells 4.25 10^6/uL (4.5-5.90); Red Cell Distribution Width 12.8 % (11.8-14.3); White Blood Cell 9.7 10^3/uL (4.4-10.8)
[2020-08-20 06:19] LABS: Potassium 3.4 mmol/L (3.5-5.1)
[2020-08-20 06:28] LABS: Albumin 2.5 g/dL (3.4-5.0); BUN/Creatinine Ratio 10.7; Bilirubin, Total 0.2 mg/dL (0.2-1.0); Calcium 9.5 mg/dL (8.5-10.1)
--- NOTE | 2020-08-20 07:36 | NUR ---
Closing note Endorsed care to day shifT RN. no sob or distress noted.
--- NOTE | 2020-08-20 07:40 | NUR ---
Opening Shift Note Assumed care of patient, awake and alert. Respirations are even and non labored on 2L NC. Bed is in the lowest and locked position with side rails up x 2 and call light within reach. No S/S of distress/SOB or pain reported. Spoke to patient with RN Alina for translation. Answered all questions and instructed on POC and to call for assist PRN, will continue to monitor for changes Q1hr and PRN.
[2020-08-20] MEDS: Glucerna Carbsteady SHAKE Vanilla 8oz PO SCH ×3 (08:00→18:11)
[2020-08-20 09:00] VITALS: BP 102/58
[2020-08-20] MEDS: levETIRAcetam 500 MG TAB PO SCH ×2 (10:12→22:50)
[2020-08-20] MEDS: AZITHROMYCIN 250 MG TAB PO SCH (10:12)
[2020-08-20] MEDS ORDERED: SODIUM CHLORIDE LOCK 0 ML ONE (12:27)
[2020-08-20] MEDS ORDERED: LIDOCAINE 2%HCL (LOCAL ANESTH.) INJ 20ML MDV ONE (12:27)
[2020-08-20] MEDS ORDERED: EPINEPHrine HCL 1 MG/1 ML AMP ONE (12:29)
[2020-08-20] MEDS ORDERED: LIDOCAINE HCL 2% TOP JELLY 5ML TOP ONE (12:29)
[2020-08-20] MEDS ORDERED: LIDOCAINE HCL 2 % INJ 2ML MPF NEB ONE (12:45)
--- NOTE | 2020-08-20 12:58 | NUR ---
MRI came to take patient Patient was not able to go to MRI as he was being taken down to pre-op for procedure. Will notify doctor that MRI wasn't able to be completed at this time.
[2020-08-20] MEDS ORDERED: MIDAZOLAM HCL 1MG/1ML-2 ML VIAL ONE (12:59)
[2020-08-20] MEDS ORDERED: MEPERIDINE HCL (25 MG/ML) 1ML VIAL ONE (12:59)
[2020-08-20] MEDS ORDERED: fentaNYL CITRATE 100 MCG/2 ML VL ONE (12:59)
[2020-08-20 13:00] VITALS: BP 128/88
--- NOTE | 2020-08-20 13:05 | NUR ---
Patient taken to pre-op
[2020-08-20] MEDS ORDERED: LIDOCAINE HCL 2 % INJ 2ML MPF ONE (13:08)
[2020-08-20] MEDS ORDERED: SUCCINYLCHOLINE CHLORIDE 20 MG/ML 10ML VIAL IV ONE (13:15)
[2020-08-20] MEDS ORDERED: PROPOFOL 10 MG/ML 20 ML IV ONE (13:17)
--- NOTE | 2020-08-20 14:41 | NUR ---
Pt not seen due to pre-op. Addendum: 08/20/20 at 1442 by Camilo Marroquin PTA Amended: Links added.
[2020-08-20 15:03] VITALS: BP 85/50
[2020-08-20] MEDS ORDERED: LABETALOL HCL 5 MG/ML 4ML SYRINGE IV PRN (15:30)
[2020-08-20] MEDS ORDERED: ONDANSETRON HCL 4 MG/2 ML VIAL IV PRN (15:30)
[2020-08-20] MEDS ORDERED: ACCU-CHEK COMFORT CURVE STRIP VI ONE (15:30)
[2020-08-20] MEDS ORDERED: ePHEDrine SULFATE 50 MG/ML AMP IV PRN (15:30)
[2020-08-20] MEDS ORDERED: MIDAZOLAM HCL 1MG/1ML-2 ML VIAL IV PRN (15:30)
[2020-08-20] MEDS ORDERED: HYDROmorphone HCL 2 MG/ML VL IV PRN (15:30)
[2020-08-20] MEDS ORDERED: MORPHINE SULFATE 4 MG/ML SYR/VIAL IV PRN (15:30)
--- NOTE | 2020-08-20 15:40 | NUR ---
RT NOTE: PT. EXTUBATED WITHOUT INCIDENT PER DR. HARRISON VERBAL ORDER. NO STRIDOR NOTED. PT. HR 94, RR 16, POX 95% ON 6L SIMPLE MASK.
--- NOTE | 2020-08-20 16:29 | NUR ---
Report received from Sury MUNOZ Patient was successfully extubated at 1530. He is A/O x 4 with stable vital signs on 3L NC. Patient had purposeful movement and followed commands. He is to be transported back to the tele floor.
--- NOTE | 2020-08-20 16:52 | NUR ---
Patient returned from OR recovery No s/s of distress or pain noted at this time. Will continue to monitor.
--- NOTE | 2020-08-20 18:05 | NUR ---
Patients at bedside Per Dr. Montana, patients allowed to visit patient. ALEXANDER Carpenter at bedside to discuss procedure and ongoing POC. All questions answered. Will continue to monitor.
--- NOTE | 2020-08-20 19:30 | NUR ---
Opening Shift Note Assumed care of patient, awake and alert. No S/S of distress/SOB or pain. Updated on POC and to call for assist PRN, patient verbalized understanding. Bed in lowest and locked position, bed alarm on, call light within reach, will continue to monitor for changes Q1hr and PRN.
[2020-08-20 22:00] VITALS: BP 120/71
[2020-08-20] MEDS: AMITRIPTYLINE HCL 25 MG TAB PO SCH (22:50)
[2020-08-21] MEDS: CIPROFLOXACIN 0.3%OPTH(EYE) SOL 5ML LEFTEYE SCH ×6 (02:00→22:48)
[2020-08-21 05:00] VITALS: BP 125/72
--- NOTE | 2020-08-21 08:00 | NUR ---
Opening Shift Note Assumed care of patient, awake and alert, with periods of confusion. With generalized weakness. No S/S of distress/SOB or pain. Instructed on POC and to call for assist PRN, will continue to monitor for changes Q1hr and PRN.
[2020-08-21 08:11] VITALS: BP 127/80
[2020-08-21 08:30] VITALS: BP 129/84
[2020-08-21] MEDS: Glucerna Carbsteady SHAKE Vanilla 8oz PO SCH ×3 (09:19→18:11)
[2020-08-21] MEDS: AZITHROMYCIN 250 MG TAB PO SCH (09:23)
[2020-08-21] MEDS: levETIRAcetam 500 MG TAB PO SCH ×2 (09:23→22:48)
--- NOTE | 2020-08-21 10:00 | NUR ---
Dr. Napier at bedside, orders received.
[2020-08-21] MEDS ORDERED: ENOXAPARIN SOD 40 MG/0.4 ML SYRINGE SC ONE (10:30)
[2020-08-21 12:30] VITALS: BP 129/84
--- NOTE | 2020-08-21 14:50 | NUR ---
Nutrition Followup Notes Wt: 63.8 kg Pt was sleeping when rounded this morning. pt is currently on cardiac diet with Glucerna 1 carton tid with inadequate PO of 50% x 2 per RN doc. Est energy needs 8190-8583 kcal (25-30 kcal/kg BW 68.2kg), Est protein needs 68-75 (1-1.1g/kg BW 68.2kg). Will reassess prn. LABS: CREAT 1.49 H ALB 2.5 L CO2 36 H GI: Pt with 1 BM on 08/17 per RN doc. BS: 13 mod risk. Refer to Wound Assessment report for further details. PES: Increased nutrient needs r/t increased needs for resp failure aeb pt with history of PNA, resp failure Comments Will continue to monitor PO status, skin status, pertinent labs and weight trends. Will f/u in 3-5 days 1) Consider CCHO 60 gm as pt with hx of DM 2) refer pt to OPD on DC 3) Continue current plan of care
[2020-08-21 16:28] VITALS: BP 134/90
--- NOTE | 2020-08-21 19:35 | NUR ---
Opening Shift Note Assumed care of patient, asleep at this time. No S/S of distress/SOB or pain. Bed in lowest and locked position, bed alarm on, call light within reach, will continue to monitor for changes Q1hr and PRN.
[2020-08-21 22:00] VITALS: BP 131/80
[2020-08-21] MEDS: AMITRIPTYLINE HCL 25 MG TAB PO SCH (22:48)
[2020-08-22] MEDS: CIPROFLOXACIN 0.3%OPTH(EYE) SOL 5ML LEFTEYE SCH ×4 (02:00→13:58)
[2020-08-22 05:00] VITALS: BP 125/78
[2020-08-22] MEDS: Glucerna Carbsteady SHAKE Vanilla 8oz PO SCH ×3 (08:00→18:00)
[2020-08-22 08:18] VITALS: BP 147/99
[2020-08-22] MEDS ORDERED: ENOXAPARIN SOD 40 MG/0.4 ML SYRINGE SC SCH (10:00)
[2020-08-22] MEDS: AZITHROMYCIN 250 MG TAB PO SCH (10:32)
[2020-08-22] MEDS: levETIRAcetam 500 MG TAB PO SCH (10:33)
[2020-08-22 11:58] VITALS: BP 126/77
[2020-08-22] MEDS ORDERED: POTASSIUM CHL 20 Meq TABLET PO ONE (13:45)
[2020-08-22] MEDS ORDERED: AZIT250T8 PO (14:15)
--- NOTE | 2020-08-22 16:06 | NUR ---
D/C Planning Per social service consult for home health safety evaluation, physical therapy and nurse aide. Faxed clinical information to [facility] and [facility]. Per Priscilla with [facility] patient has been accepted and service to start within 24-48hrs upon d/c day. Obtain authorization from [facility] [id number]. Patent family will transport patient home.
--- NOTE | 2020-08-22 17:58 | NUR ---
PRESCRIPTION FILLED IN AT [facility] AND GIVEN TO PT
--- NOTE | 2020-08-22 18:50 | NUR ---
Discharge instructions given as ordered. Encourage to follow up with PMD as instructed. All questions and concerns addressed. Patient verbalized understanding. Medication reconciliation form completed and copy given to patient. Home medications held in Pharmacy returned to patient. IV removed with catheter intact, pressure dressing applied, mock catheter removed. Telemetry unit returned to ICU. Patient taken to vehicle via wheelchair with all personal belongings, accompanied by staff and family member. No distress noted at time of departure.
== END 2020-08-22 18:58 | disposition home health service (06) | DRG 871 ==
LOC: ER 08:24 → EDBD 08:24 → TELE 08:25 → TELE-EAST 17:35 → TELE-CENTR 08-11 20:30 → TELE-WESTW 08-12 16:27
PROVIDERS: ADMIT Nurse Practitioner Acute Care; ATTEND Internal Medicine Nephrology
PROC: 009U3ZZ Drainage of Spinal Canal, Percutaneous Approach (ICD-10-PCS; 2020-08-18)
PROC: B01B1ZZ Fluoroscopy of Spinal Cord using Low Osmolar Contrast (ICD-10-PCS; 2020-08-18)
PROC: 0BDB8ZX Extraction of Left Lower Lobe Bronchus, Via Natural or Artificial Opening Endoscopic, Diagnostic (ICD-10-PCS; 2020-08-20)
PROC: 5A1935Z Respiratory Ventilation, Less than 24 Consecutive Hours (ICD-10-PCS; 2020-08-20)
PROC: 0BH17EZ Insertion of Endotracheal Airway into Trachea, Via Natural or Artificial Opening (ICD-10-PCS; 2020-08-20)
PROC: 0B9F8ZX Drainage of Right Lower Lung Lobe, Via Natural or Artificial Opening Endoscopic, Diagnostic (ICD-10-PCS; principal; 2020-08-20 13:27)
DX: A41.9 Sepsis, unspecified organism (principal); J18.9 Pneumonia, unspecified organism; J96.22 Acute and chronic respiratory failure with hypercapnia; N17.0 Acute kidney failure with tubular necrosis; E43 Unspecified severe protein-calorie malnutrition; J96.21 Acute and chronic respiratory failure with hypoxia; G93.41 Metabolic encephalopathy; G03.9 Meningitis, unspecified; S22.41XA Multiple fractures of ribs, right side, initial encounter for closed fracture; N12 Tubulo-interstitial nephritis, not specified as acute or chronic; J98.11 Atelectasis; G91.9 Hydrocephalus, unspecified; G95.0 Syringomyelia and syringobulbia; J44.0 Chronic obstructive pulmonary disease with (acute) lower respiratory infection; B69.9 Cysticercosis, unspecified; I48.0 Paroxysmal atrial fibrillation; E87.6 Hypokalemia; D64.9 Anemia, unspecified; E11.65 Type 2 diabetes mellitus with hyperglycemia; N28.1 Cyst of kidney, acquired; G40.409 Other generalized epilepsy and epileptic syndromes, not intractable, without status epilepticus; Z20.828 Contact with and (suspected) exposure to other viral communicable diseases; F17.210 Nicotine dependence, cigarettes, uncomplicated; E78.5 Hyperlipidemia, unspecified; I10 Essential (primary) hypertension; I25.10 Atherosclerotic heart disease of native coronary artery without angina pectoris; X58.XXXA Exposure to other specified factors, initial encounter; Z83.3 Family history of diabetes mellitus; Z87.442 Personal history of urinary calculi; Z68.23 Body mass index [BMI] 23.0-23.9, adult; Z98.2 Presence of cerebrospinal fluid drainage device; Z79.82 Long term (current) use of aspirin; Z79.84 Long term (current) use of oral hypoglycemic drugs; Z79.899 Other long term (current) drug therapy; Z82.49 Family history of ischemic heart disease and other diseases of the circulatory system; Z86.73 Personal history of transient ischemic attack (TIA), and cerebral infarction without residual deficits; Z99.81 Dependence on supplemental oxygen; Z87.11 Personal history of peptic ulcer disease; Z87.01 Personal history of pneumonia (recurrent)
CPT/HCPCS: 36415; 36600; 51702; 62272; 70450; 70551; 71045; 71250; 72141; 74178; 76775; 80048; 80053; 80202; 81001; 82607; 82746; 82805; 82945; 82962; 83036; 83605; 83735; 83880; 84157; 84443; 84484; 85025; 85610; 86606; 86635; 86641; 86703; 86850; 86900; 86901; 87040; 87070; 87075; 87081; 87205; 87278; 87426; 87529; 87804; 87880; 87899; 89051; 93005; 93970; 94002; 94640; 96361; 96365; 97110; 97530; 99291; G0378; J0171; J0330; J1815; J2250; J2543; J2704

== ENCOUNTER 2022-02-04 21:53 | Inpatient (IN) | payer OTHER, MEDICAID ==
[~2022-02-04] VITALS: Ht 160 cm; Wt 77.9 kg
[~2022-02-04 21:53] MED LIST changes: +AMIT25TA12 PO; -AMIT25TA9 PO; +AZIT250T8 PO; +DOCU100C10 PO; -DOCU100C8 PO; +GUAI400T44 PO; -LEVO500T21 PO; +LEVO500T31 PO; -[UNRECOGNIZED DRUG - CODE] PO
[2022-02-04] MEDS ORDERED: IPRATROPIUM BROM 0.5 MG/2.5ML INH SOL NEB ONE (22:15)
[2022-02-04] MEDS ORDERED: SODIUM CHLORIDE 0.9% 2,000 ML IV ONE (22:15)
[2022-02-04] MEDS ORDERED: ALBUTEROL SULF 2.5 MG/0.5ML(0.5%) NEB SOLN NEB ONE (22:15)
[2022-02-04 22:57] LABS: Basophils # (auto) 0 10 ^3/uL (0-0.2); Basophils % (auto) 0.1 % (0.0-2.0); Eosinophils # (auto) 0 10 ^3/uL (0-0.8); Eosinophils % (auto) 0.3 % (0.0-7.0); Hemoglobin 11.3 g/dL (13.5-17.5); Lymphocytes # (auto) 0.6 10 ^3/uL (0.4-5.4); Lymphocytes % (auto) 6.3 % (10.0-50.0); Mean Corpuscular Hemoglobin 30.9 pg (28.0-32.0); Mean Corpuscular Hgb Conc. 34.2 g/dL (32.0-36.0); Mean Corpuscular Volume 90.4 fL (80.0-100.0); Monocytes # (auto) 0.8 10 ^3/uL (0-1.3); Monocytes % (auto) 8.3 % (0.0-12.0); Neutrophils # (auto) 8.6 10 ^3/uL (1.6-8.6); Red Blood Cells 3.65 10^6/uL (4.5-5.90); Red Cell Distribution Width 12.7 % (11.8-14.3); White Blood Cell 10.1 10^3/uL (4.4-10.8)
[2022-02-04] MEDS ORDERED: ACETAMINOPHEN 500 MG TAB PO ONE (23:00)
[2022-02-04] MEDS ORDERED: AZITHROMYCIN 500MG/ 250ML 250 ML IV ONE (23:15)
[2022-02-04] MEDS ORDERED: cefTRIAXone 1GM/50ML D5W 50 ML IV ONE (23:15)
[2022-02-04 23:16] LABS: Albumin 3.1 g/dL (3.4-5.0); Calcium 8.3 mg/dL (8.5-10.1); Potassium 4.7 mmol/L (3.5-5.1)
[2022-02-04 23:18] LABS: BUN/Creatinine Ratio 13.3
[2022-02-04 23:21] LABS: Bilirubin, Total 0.2 mg/dL (0.2-1.0)
[2022-02-05] VITALS (41 sets, daily range): BP systolic 80–147; BP diastolic 38–86
[2022-02-05] MEDS ORDERED: SODIUM CHLORIDE 0.9% 1,000 ML IV ONE ×2 (01:15→02:45)
[2022-02-05 01:33] LABS: Urine Bacteria NONE SEEN /hpf (None Seen); Urine Blood 3+ /uL (Negative); Urine Hyaline Cast MOD /lpf (0 - 2); Urine Mucus FEW (None Seen); Urine Specific Gravity 1.014 (1.001-1.035); Urine Sperm PRESENT /hpf (None Seen); Urine WBC 506 /hpf (0 - 3); Urine WBC Clumps PRESENT /hpf (None Seen)
[2022-02-05] MEDS ORDERED: ONDANSETRON HCL 4 MG/2 ML VIAL IV PRN (03:15)
[2022-02-05] MEDS ORDERED: NITROGLYCERIN 0.4 MG SL TAB SL PRN (03:15)
[2022-02-05] MEDS ORDERED: MORPHINE SULFATE INJECTION 2 MG/ML SYRG IV PRN (03:15)
[2022-02-05] MEDS ORDERED: ALBUTEROL SULF 2.5 MG/0.5ML(0.5%) NEB SOLN NEB PRN (03:15)
[2022-02-05] MEDS ORDERED: ALBUMIN 5% 250 ML IV ONE (03:15)
[2022-02-05] MEDS ORDERED: DEXTROSE (50%) 50ML SYRG IV PRN (03:15)
[2022-02-05] MEDS: ACETAMINOPHEN 325 MG TAB PO PRN (05:53)
[2022-02-05] MEDS: InsuLIN REG 1unit/0.01ml Soln (100units/ml) SC SCH ×3 (06:00→17:15)
[2022-02-05] MEDS: ACCU-CHEK COMFORT CURVE STRIP VI SCH ×3 (06:01→17:14)
[2022-02-05] MEDS ORDERED: LORazepam 2MG/ML-1ML VIAL IV ONE ×2 (06:15→07:15)
[2022-02-05] MEDS ORDERED: IOHEXOL 350 MG/ML 100ML IJ ONE ×2 (06:17→06:46)
[2022-02-05] MEDS ORDERED: EPINEPHrine HCL 1 MG/10 ML SYRG ONE (07:18)
[2022-02-05] MEDS ORDERED: KETAMINE HCL 10 ML ONE (07:25)
[2022-02-05] MEDS ORDERED: SUCCINYLCHOLINE CHLORIDE 20 MG/ML 10ML VIAL IV ONE ×2 (07:28→08:15)
[2022-02-05] MEDS ORDERED: ETOMIDATE (2MG/ML) 20ML VIAL IV ONE ×2 (07:31→08:15)
[2022-02-05] MEDS ORDERED: MIDAZOLAM DRIP 50 mg/50mL 50 ML IV ONE (07:33)
[2022-02-05] MEDS ORDERED: NOREPINEPHRINE 8 MG/250ML KIT 250 ML IV ONE (07:34)
[2022-02-05] MEDS: MIDAZOLAM DRIP 50 mg/50mL 50 ML IV SCH ×2 (07:39→15:22)
[2022-02-05] MEDS: NOREPINEPHRINE 8 MG/250ML KIT 250 ML IV SCH (07:40)
[2022-02-05] MEDS: fentaNYL Drip 2500mCg/250mlNS 250 ML IV SCH (08:15)
[2022-02-05] MEDS: cefTRIAXone 1GM/50ML D5W 50 ML IV SCH (09:23)
[2022-02-05] MEDS: AZITHROMYCIN 500MG/ 250ML 250 ML IV SCH (09:34)
[2022-02-05] MEDS ORDERED: PANTOPRAZOLE 40 MG TAB PO SCH (10:00)
[2022-02-05] MEDS ORDERED: levETIRAcetam 500 MG TAB PO SCH (10:00)
[2022-02-05] MEDS: ASPirin 81 mg TAB PO SCH (10:52)
[2022-02-05] MEDS: ENOXAPARIN SOD 40 MG/0.4 ML SYRINGE SC SCH (10:52)
[2022-02-05] MEDS: PANTOPRAZOLE 40 MG/10 ML VIAL INJ IV SCH (10:52)
[2022-02-05] MEDS ORDERED: TAMS0.4C36 PO (12:11)
[2022-02-05 14:52] LABS: INR 1.06 (0.9-1.15)
[2022-02-05] MEDS: ATORVASTATIN 20 MG TAB PO SCH (21:44)
[2022-02-06] VITALS (105 sets, daily range): BP systolic 83–167; BP diastolic 45–89
[2022-02-06] MEDS: InsuLIN REG 1unit/0.01ml Soln (100units/ml) SC SCH ×4 (00:11→17:25)
[2022-02-06] MEDS: ACCU-CHEK COMFORT CURVE STRIP VI SCH ×4 (00:11→17:25)
[2022-02-06 03:57] LABS: Basophils # (auto) 0 10 ^3/uL (0-0.2); Basophils % (auto) 0.3 % (0.0-2.0); Eosinophils # (auto) 0 10 ^3/uL (0-0.8); Eosinophils % (auto) 0.2 % (0.0-7.0); Hematocrit 32.8 % (41.0-53.0); Hemoglobin 11.1 g/dL (13.5-17.5); Lymphocytes # (auto) 1.9 10 ^3/uL (0.4-5.4); Lymphocytes % (auto) 14.4 % (10.0-50.0); Mean Corpuscular Hemoglobin 30.7 pg (28.0-32.0); Mean Corpuscular Hgb Conc. 33.8 g/dL (32.0-36.0); Monocytes # (auto) 1.3 10 ^3/uL (0-1.3); Monocytes % (auto) 9.3 % (0.0-12.0); Neutrophils # (auto) 10.2 10 ^3/uL (1.6-8.6); Neutrophils % (auto) 75.8 % (37.0-80.0); Red Cell Distribution Width 13.1 % (11.8-14.3); White Blood Cell 13.5 10^3/uL (4.4-10.8)
[2022-02-06 04:17] LABS: Albumin 2.6 g/dL (3.4-5.0); Potassium 3.7 mmol/L (3.5-5.1)
[2022-02-06 04:28] LABS: Bilirubin, Total 0.3 mg/dL (0.2-1.0)
[2022-02-06] MEDS: MIDAZOLAM DRIP 50 mg/50mL 50 ML IV SCH ×2 (04:47→10:33)
[2022-02-06] MEDS: NOREPINEPHRINE 8 MG/250ML KIT 250 ML IV SCH (07:15)
[2022-02-06] MEDS: ASPirin 81 mg TAB PO SCH (07:31)
[2022-02-06] MEDS: AZITHROMYCIN 500MG/ 250ML 250 ML IV SCH (07:32)
[2022-02-06] MEDS: PANTOPRAZOLE 40 MG/10 ML VIAL INJ IV SCH (07:32)
[2022-02-06] MEDS: ENOXAPARIN SOD 40 MG/0.4 ML SYRINGE SC SCH (07:32)
[2022-02-06] MEDS: cefTRIAXone 1GM/50ML D5W 50 ML IV SCH (07:32)
[2022-02-06] MEDS: fentaNYL Drip 2500mCg/250mlNS 250 ML IV SCH (07:49)
[2022-02-06] MEDS: metroNIDAZOLE 500MG/100ML 100 ML IV SCH ×2 (13:46→22:35)
[2022-02-06] MEDS: Glucerna 1.2 Cal 1Liter BOTTLE GT SCH (13:50)
[2022-02-06] MEDS: ATORVASTATIN 20 MG TAB PO SCH (22:15)
[2022-02-07] VITALS (100 sets, daily range): BP systolic 94–145; BP diastolic 51–88
[2022-02-07] MEDS: MIDAZOLAM DRIP 50 mg/50mL 50 ML IV SCH (00:38)
[2022-02-07] MEDS: ACCU-CHEK COMFORT CURVE STRIP VI SCH ×4 (00:58→18:06)
[2022-02-07] MEDS: InsuLIN REG 1unit/0.01ml Soln (100units/ml) SC SCH ×4 (00:58→18:00)
[2022-02-07 03:53] LABS: Basophils # (auto) 0 10 ^3/uL (0-0.2); Basophils % (auto) 0.3 % (0.0-2.0); Eosinophils # (auto) 0 10 ^3/uL (0-0.8); Eosinophils % (auto) 0.1 % (0.0-7.0); Hematocrit 32.7 % (41.0-53.0); Hemoglobin 11.3 g/dL (13.5-17.5); Lymphocytes % (auto) 20.3 % (10.0-50.0); Mean Corpuscular Hgb Conc. 34.6 g/dL (32.0-36.0); Mean Corpuscular Volume 89.6 fL (80.0-100.0); Monocytes # (auto) 0.9 10 ^3/uL (0-1.3); Neutrophils # (auto) 6.7 10 ^3/uL (1.6-8.6); Neutrophils % (auto) 70.3 % (37.0-80.0); Nucleated Red Blood Cells % 0.1 %; Red Blood Cells 3.65 10^6/uL (4.5-5.90); Red Cell Distribution Width 12.9 % (11.8-14.3); White Blood Cell 9.6 10^3/uL (4.4-10.8)
[2022-02-07 04:11] LABS: Potassium 3.4 mmol/L (3.5-5.1)
[2022-02-07 04:18] LABS: Albumin 2.5 g/dL (3.4-5.0); Bilirubin, Total 0.2 mg/dL (0.2-1.0); Calcium 8.6 mg/dL (8.5-10.1); Total Protein 6.5 g/dL (6.4-8.2)
[2022-02-07] MEDS: metroNIDAZOLE 500MG/100ML 100 ML IV SCH ×3 (05:57→22:17)
[2022-02-07] MEDS: NOREPINEPHRINE 8 MG/250ML KIT 250 ML IV SCH (07:16)
[2022-02-07] MEDS: fentaNYL Drip 2500mCg/250mlNS 250 ML IV SCH (07:16)
[2022-02-07] MEDS ORDERED: POTASSIUM CHL 20MEQ/100ML 100 ML IV ONE (10:30)
[2022-02-07] MEDS: PANTOPRAZOLE 40 MG/10 ML VIAL INJ IV SCH (10:34)
[2022-02-07] MEDS: ENOXAPARIN SOD 40 MG/0.4 ML SYRINGE SC SCH (10:35)
[2022-02-07] MEDS: AZITHROMYCIN 500MG/ 250ML 250 ML IV SCH (10:35)
[2022-02-07] MEDS: cefTRIAXone 1GM/50ML D5W 50 ML IV SCH (10:35)
[2022-02-07] MEDS: ASPirin 81 mg TAB PO SCH (10:36)
[2022-02-07] MEDS: Glucerna 1.2 Cal 1Liter BOTTLE GT SCH (12:48)
[2022-02-07] MEDS: ATORVASTATIN 20 MG TAB PO SCH (22:17)
[2022-02-08] VITALS (56 sets, daily range): BP systolic 107–159; BP diastolic 57–95
[2022-02-08 04:11] LABS: Basophils # (auto) 0 10 ^3/uL (0-0.2); Basophils % (auto) 0.4 % (0.0-2.0); Eosinophils # (auto) 0 10 ^3/uL (0-0.8); Eosinophils % (auto) 0.3 % (0.0-7.0); Hemoglobin 12.5 g/dL (13.5-17.5); Lymphocytes # (auto) 1.9 10 ^3/uL (0.4-5.4); Lymphocytes % (auto) 25.5 % (10.0-50.0); Mean Corpuscular Hemoglobin 30.7 pg (28.0-32.0); Mean Corpuscular Hgb Conc. 34.7 g/dL (32.0-36.0); Mean Corpuscular Volume 88.4 fL (80.0-100.0); Monocytes # (auto) 0.8 10 ^3/uL (0-1.3); Neutrophils # (auto) 4.6 10 ^3/uL (1.6-8.6); Neutrophils % (auto) 62.8 % (37.0-80.0); Nucleated Red Blood Cells % 0.1 %; Red Blood Cells 4.08 10^6/uL (4.5-5.90); Red Cell Distribution Width 12.8 % (11.8-14.3); White Blood Cell 7.4 10^3/uL (4.4-10.8)
[2022-02-08 04:19] LABS: Calcium 9.5 mg/dL (8.5-10.1); Potassium 3.2 mmol/L (3.5-5.1)
[2022-02-08] MEDS ORDERED: POTASSIUM CHL 20MEQ/100ML 100 ML IV ONE ×2 (05:15)
[2022-02-08] MEDS: InsuLIN REG 1unit/0.01ml Soln (100units/ml) SC SCH ×4 (06:00→18:00)
[2022-02-08] MEDS: ACCU-CHEK COMFORT CURVE STRIP VI SCH ×4 (06:21→18:17)
[2022-02-08] MEDS: metroNIDAZOLE 500MG/100ML 100 ML IV SCH ×3 (06:21→23:23)
[2022-02-08] MEDS: fentaNYL Drip 2500mCg/250mlNS 250 ML IV SCH (07:49)
[2022-02-08] MEDS: NOREPINEPHRINE 8 MG/250ML KIT 250 ML IV SCH (07:49)
[2022-02-08] MEDS: MIDAZOLAM DRIP 50 mg/50mL 50 ML IV SCH (07:50)
[2022-02-08] MEDS ORDERED: FUROSEMIDE 40 MG/4 ML VIAL ONE (08:01)
[2022-02-08] MEDS: cefTRIAXone 1GM/50ML D5W 50 ML IV SCH (08:06)
[2022-02-08] MEDS: ASPirin 81 mg TAB PO SCH (08:07)
[2022-02-08] MEDS: AZITHROMYCIN 500MG/ 250ML 250 ML IV SCH (08:07)
[2022-02-08] MEDS: ENOXAPARIN SOD 40 MG/0.4 ML SYRINGE SC SCH (08:07)
[2022-02-08] MEDS: PANTOPRAZOLE 40 MG/10 ML VIAL INJ IV SCH (08:07)
[2022-02-08] MEDS ORDERED: FUROSEMIDE 40 MG/4 ML VIAL IV ONE (08:15)
[2022-02-08] MEDS ORDERED: ARTIFICIAL TEARS 15ml EACHEYE PRN (12:00)
[2022-02-08] MEDS: POTASSIUM CHL 20MEQ/100ML 100 ML IV SCH ×2 (12:47→16:27)
[2022-02-08] MEDS: ATORVASTATIN 20 MG TAB PO SCH (22:00)
[2022-02-08] MEDS: ACETAMINOPHEN 325 MG TAB PO PRN (22:10)
[2022-02-09] VITALS (15 sets, daily range): BP systolic 115–140; BP diastolic 69–83
[2022-02-09] MEDS: InsuLIN REG 1unit/0.01ml Soln (100units/ml) SC SCH ×5 (02:02→23:26)
[2022-02-09] MEDS: ACCU-CHEK COMFORT CURVE STRIP VI SCH ×4 (02:02→17:51)
[2022-02-09 04:32] LABS: Basophils # (auto) 0 10 ^3/uL (0-0.2); Basophils % (auto) 0.3 % (0.0-2.0); Eosinophils # (auto) 0 10 ^3/uL (0-0.8); Hematocrit 37.3 % (41.0-53.0); Hemoglobin 13.2 g/dL (13.5-17.5); Lymphocytes # (auto) 2.1 10 ^3/uL (0.4-5.4); Mean Corpuscular Hemoglobin 30.8 pg (28.0-32.0); Mean Corpuscular Hgb Conc. 35.4 g/dL (32.0-36.0); Monocytes # (auto) 0.8 10 ^3/uL (0-1.3); Monocytes % (auto) 11.7 % (0.0-12.0); Neutrophils # (auto) 3.9 10 ^3/uL (1.6-8.6); Nucleated Red Blood Cells % 0.1 %; Red Blood Cells 4.29 10^6/uL (4.5-5.90); Red Cell Distribution Width 12.7 % (11.8-14.3); White Blood Cell 6.9 10^3/uL (4.4-10.8)
[2022-02-09 04:41] LABS: Calcium 9.8 mg/dL (8.5-10.1); Potassium 3.7 mmol/L (3.5-5.1)
[2022-02-09] MEDS: metroNIDAZOLE 500MG/100ML 100 ML IV SCH (06:01)
[2022-02-09] MEDS: cefTRIAXone 1GM/50ML D5W 50 ML IV SCH (08:56)
[2022-02-09] MEDS: PANTOPRAZOLE 40 MG/10 ML VIAL INJ IV SCH (09:42)
[2022-02-09] MEDS: ENOXAPARIN SOD 40 MG/0.4 ML SYRINGE SC SCH (09:43)
[2022-02-09] MEDS: AZITHROMYCIN 500MG/ 250ML 250 ML IV SCH (09:43)
[2022-02-09] MEDS: ASPirin 81 mg TAB PO SCH (09:43)
[2022-02-09] MEDS: ATORVASTATIN 20 MG TAB PO SCH (21:36)
[2022-02-09] MEDS: ACETAMINOPHEN 325 MG TAB PO PRN (21:37)
[2022-02-10] MEDS: ACCU-CHEK COMFORT CURVE STRIP VI SCH ×4 (04:24→17:40)
[2022-02-10 05:23] LABS: Hematocrit 38.7 % (41.0-53.0); Hemoglobin 13.5 g/dL (13.5-17.5); Mean Corpuscular Hemoglobin 30.9 pg (28.0-32.0); Mean Corpuscular Hgb Conc. 34.8 g/dL (32.0-36.0); Mean Corpuscular Volume 88.9 fL (80.0-100.0); Red Blood Cells 4.36 10^6/uL (4.5-5.90); Red Cell Distribution Width 12.7 % (11.8-14.3); White Blood Cell 8.9 10^3/uL (4.4-10.8)
[2022-02-10 05:40] LABS: Calcium 9.9 mg/dL (8.5-10.1); Potassium 3.8 mmol/L (3.5-5.1)
[2022-02-10 05:46] LABS: BUN/Creatinine Ratio 19.4
[2022-02-10] MEDS: InsuLIN REG 1unit/0.01ml Soln (100units/ml) SC SCH ×3 (06:00→17:40)
[2022-02-10 06:09] LABS: Basophils % (manual) 0 (0.0-2.0); Blast Cells 0; Eosinophils % (manual) 0 (0-7); Promyelocytes % 0; Reactive Lymphocytes 0
[2022-02-10 07:24] LABS: Band Neutrophils % (manual) 2; Lymphocytes % (manual) 25 (10.0-50.0); Metamyelocytes % 1; Monocytes % (manual) 8 (0-12); Myelocytes % 1
[2022-02-10 09:00] VITALS: BP 114/67
[2022-02-10] MEDS: PANTOPRAZOLE 40 MG/10 ML VIAL INJ IV SCH (09:22)
[2022-02-10] MEDS: ENOXAPARIN SOD 40 MG/0.4 ML SYRINGE SC SCH (09:22)
[2022-02-10] MEDS: ASPirin 81 mg TAB PO SCH (09:23)
[2022-02-10] MEDS: cefTRIAXone 1GM/50ML D5W 50 ML IV SCH (09:24)
[2022-02-10] MEDS ORDERED: CEPH-509 PO (09:50)
[2022-02-10] MEDS ORDERED: levETIRAcetam 500 MG TAB PO SCH (10:00)
[2022-02-10 10:21] VITALS: BP 121/71
[2022-02-10 13:00] VITALS: BP 100/55
[2022-02-10 17:00] VITALS: BP 139/89
== END 2022-02-10 20:52 | disposition home health service (06) | DRG 871 ==
LOC: EDBD 21:53 → ER 22:01 → TELE 02-05 03:15 → ICU WEST 02-05 10:16 → TELE-EAST 02-09 15:15
PROVIDERS: ADMIT Nurse Practitioner; ATTEND Internal Medicine Pulmonary Disease
PROC: 5A1945Z Respiratory Ventilation, 24-96 Consecutive Hours (ICD-10-PCS; principal; 2022-02-05)
PROC: 0BH17EZ Insertion of Endotracheal Airway into Trachea, Via Natural or Artificial Opening (ICD-10-PCS; 2022-02-05)
PROC: 5A09357 Assistance with Respiratory Ventilation, Less than 24 Consecutive Hours, Continuous Positive Airway Pressure (ICD-10-PCS; 2022-02-09)
DX: A41.01 Sepsis due to Methicillin susceptible Staphylococcus aureus (principal); E43 Unspecified severe protein-calorie malnutrition; J18.9 Pneumonia, unspecified organism; J96.01 Acute respiratory failure with hypoxia; R65.21 Severe sepsis with septic shock; I21.A1 Myocardial infarction type 2; J44.0 Chronic obstructive pulmonary disease with (acute) lower respiratory infection; N39.0 Urinary tract infection, site not specified; T83.61XA Infection and inflammatory reaction due to implanted penile prosthesis, initial encounter; E11.9 Type 2 diabetes mellitus without complications; E78.5 Hyperlipidemia, unspecified; Z20.822 Contact with and (suspected) exposure to COVID-19; E87.6 Hypokalemia; I48.91 Unspecified atrial fibrillation; Y83.8 Other surgical procedures as the cause of abnormal reaction of the patient, or of later complication, without mention of misadventure at the time of the procedure; G40.909 Epilepsy, unspecified, not intractable, without status epilepticus; I10 Essential (primary) hypertension; Z68.30 Body mass index [BMI] 30.0-30.9, adult; Z90.49 Acquired absence of other specified parts of digestive tract; Z87.11 Personal history of peptic ulcer disease; Y92.89 Other specified places as the place of occurrence of the external cause
CPT/HCPCS: 31500; 36415; 36600; 51702; 70450; 71045; 71275; 74176; 80048; 80053; 81001; 82805; 82962; 83605; 83880; 84484; 85007; 85025; 85027; 85379; 85610; 87040; 87070; 87077; 87081; 87086; 87186; 87205; 87804; 92610; 93005; 94002; 94003; 94640; 94660; 96365; 96366; 96367; 96368; 97110; 97163; 97530; A4618; C9113; G0378; J0330; J0696; J1815; J2250; J3480; J3490; J7060

== ENCOUNTER 2023-07-16 19:47 | Inpatient (IN) | payer OTHER, MEDICAID ==
[~2023-07-16] VITALS: Ht 162.6 cm; Wt 64.6 kg
[~2023-07-16 19:47] MED LIST changes: -AMIT25TA12 PO; +AMIT25TA20 PO; +AZIT-81 PO; -AZIT250T8 PO; +CEPH-509 PO; +DOCU-265 PO; -DOCU100C10 PO; +FOLI-119 PO; -FOLI1TAB6 PO; +IBUP-1454 PO; -IBUP600T27 PO; -LEVE500T32 PO; +LEVE500T40 PO; -LEVO500T31 PO; +MELO-335 PO; -MELO1TAB56 PO; +TAMS0.4C36 PO
[2023-07-16 19:48] VITALS: PULSE 142; RESP 19; O2SAT 96
[2023-07-16] MEDS ORDERED: NALOXONE HCL 1MG/ML 2ML SYRINGE ONE (19:50)
[2023-07-16] MEDS ORDERED: ETOMIDATE (2MG/ML) 20ML VIAL IV ONE ×2 (19:51→20:15)
[2023-07-16] MEDS ORDERED: ROCURONIUM 10MG/ML 10ML VIAL IV ONE ×2 (19:51→20:15)
[2023-07-16] MEDS: MIDAZOLAM DRIP 50 mg/50mL 50 ML IV SCH (19:55)
[2023-07-16] MEDS ORDERED: SODIUM CHLORIDE 0.9% 1,000 ML IV ONE (20:00)
[2023-07-16] MEDS ORDERED: PROPOFOL 100 ML IV SCH (20:00)
[2023-07-16] MEDS ORDERED: PROPOFOL 100 ML IV ONE (20:02)
[2023-07-16] MEDS ORDERED: MIDAZOLAM DRIP 50 mg/50mL 50 ML IV ONE (20:02)
[2023-07-16 20:37] LABS: Base Excess 3.9 mmol/L (-2.0-2.0)
[2023-07-16] MEDS ORDERED: VANCOMYCIN 1GM/250ML 250 ML IV ONE (20:45)
[2023-07-16] MEDS ORDERED: PIPERACILLIN-TAZO 4.5GM 100 ML IV ONE (20:45)
[2023-07-16] MEDS ORDERED: CIPROFLOXACIN 400MG/200ML 200 ML IV ONE (20:45)
[2023-07-16 20:46] LABS: Amphetamine Screen, Urine Neg (NEGATIVE); Barbiturate Scree,Urine Neg (NEGATIVE); Benzodiazephine Screen, Urine Neg (NEGATIVE); Cannabinoid Screen, Urine Neg (NEGATIVE); Cocaine Screen, Urine Neg (NEGATIVE); Opiate Scree,Urine Neg (NEGATIVE); Phencyclidine Screen, Urine Neg (NEGATIVE)
[2023-07-16] MEDS: PROPOFOL 100 ML IV SCH (21:52)
[2023-07-16] MEDS: NOREPINEPHRINE 8 MG/250ML KIT 250 ML IV SCH (21:52)
[2023-07-16 21:55] LABS: Base Excess 4.7 mmol/L (-2.0-2.0)
[2023-07-16 22:48] LABS: Basophils # (auto) 0 10 ^3/uL (0-0.2); Basophils % (auto) 0.2 % (0.0-2.0); Eosinophils # (auto) 0 10 ^3/uL (0-0.8); Eosinophils % (auto) 0.2 % (0.0-7.0); Hematocrit 42.2 % (41.0-53.0); Hemoglobin 13.9 g/dL (13.5-17.5); Lymphocytes # (auto) 0.5 10 ^3/uL (0.4-5.4); Mean Corpuscular Hemoglobin 31.4 pg (28.0-32.0); Mean Corpuscular Hgb Conc. 32.9 g/dL (32.0-36.0); Mean Corpuscular Volume 95.6 fL (80.0-100.0); Monocytes # (auto) 0.2 10 ^3/uL (0-1.3); Monocytes % (auto) 4.8 % (0.0-12.0); Neutrophils # (auto) 3.8 10 ^3/uL (1.6-8.6); Neutrophils % (auto) 83.8 % (37.0-80.0); Nucleated Red Blood Cells % 0.1 %; Red Blood Cells 4.41 10^6/uL (4.5-5.90); Red Cell Distribution Width 13.2 % (11.8-14.3); White Blood Cell 4.5 10^3/uL (4.4-10.8)
[2023-07-16 23:08] LABS: INR 1.07 (0.9-1.15); Prothrombin Time 11.2 sec (9.3-11.8)
[2023-07-16 23:10] LABS: Acetaminophen < 2.0 UG/ML (10.0-20.0); Alanine Aminotransferase 19 U/L (7-40); Albumin 4.3 g/dL (3.2-4.8); Alkaline Phosphatase 108 U/L (46-116); Anion Gap 1 (5-15); Aspartate Aminotransferase 20 U/L (13-40); BUN/Creatinine Ratio 8.8 (10.0-20.0); Blood Alcohol < 3.0 mg/dL (<10); Blood Urea Nitrogen 5 mg/dL (9-23); Calcium 9.7 mg/dL (8.7-10.4); Carbon Dioxide 38 mmol/L (20-30); Chloride 98 mmol/L (98-107); Glucose 135 mg/dL (74-106); Lipase 35 U/L (12-53); Magnesium 1.9 mg/dL (1.6-2.6); Potassium 4.2 mmol/L (3.5-5.1); Sodium 137 mmol/L (136-145)
[2023-07-16 23:11] LABS: Lactic Acid w/Reflex 2.8 mmol/L (0.4-2.0)
[2023-07-16 23:11] LABS: Bilirubin, Total 0.8 mg/dL (0.2-1.0); Total Protein 7.6 g/dL (5.7-8.2)
[2023-07-16 23:12] LABS: Salicylate < 3.0 mg/dL (2.8-20.0)
[2023-07-16] MEDS ORDERED: VANCOMYCIN PER PHARMACY 0 MG IV SCH (23:45)
[2023-07-16] MEDS ORDERED: DEXTROSE (50%) 50ML SYRG IV PRN (23:45)
[2023-07-16] MEDS ORDERED: MORPHINE SULFATE INJ 2 MG/ml SYRG IV PRN (23:45)
[2023-07-16] MEDS ORDERED: ONDANSETRON HCL 4 MG/2 ML VIAL IV PRN (23:45)
[2023-07-16] MEDS ORDERED: DOCUSATE SOD 100 MG CAP PO PRN (23:45)
[2023-07-16] MEDS ORDERED: NITROGLYCERIN 0.4 MG SL TAB SL PRN (23:45)
[2023-07-16 23:53] VITALS: BP 128/54; PULSE 114; RESP 23; O2SAT 98
[2023-07-17] VITALS (89 sets, daily range): BP systolic 20–130; BP diastolic 10–69; PULSE 72–97; RESP 12–21; TEMP 97.9–102.4; O2SAT 93–100
[2023-07-17] MEDS ORDERED: SODIUM CHLORIDE 0.9% 1,000 ML IV ONE
[2023-07-17] MEDS ORDERED: SODIUM CHLORIDE 0.9% 500 ML IV ONE
[2023-07-17] MEDS ORDERED: ACETAMINOPHEN 650 MG RECT SUPP PR ONE (00:15)
[2023-07-17] MEDS: ACCU-CHEK COMFORT CURVE STRIP VI SCH ×4 (00:29→17:24)
[2023-07-17] MEDS: InsuLIN REG 1unit/0.01ml Soln (100units/ml) SC SCH ×4 (00:37→17:24)
[2023-07-17] MEDS: SODIUM CHLORIDE 0.9% 1,000 ML IV SCH ×3 (00:39→20:22)
[2023-07-17] MEDS ORDERED: LACTULOSE 20Gm/30ML SOLN ONE (03:41)
[2023-07-17] MEDS: LACTULOSE 10g/15ml SOLN 473ML PR SCH ×3 (06:00→11:09)
[2023-07-17 06:51] LABS: Alanine Aminotransferase 15 U/L (7-40); Albumin 3.1 g/dL (3.2-4.8); Alkaline Phosphatase 69 U/L (46-116); Anion Gap 3 (5-15); Aspartate Aminotransferase 20 U/L (13-40); BUN/Creatinine Ratio 14.9 (10.0-20.0); Bilirubin, Total 0.9 mg/dL (0.2-1.0); Blood Urea Nitrogen 7 mg/dL (9-23); Calcium 7.8 mg/dL (8.7-10.4); Carbon Dioxide 32 mmol/L (20-30); Chloride 104 mmol/L (98-107); Glucose 144 mg/dL (74-106); Potassium 3.7 mmol/L (3.5-5.1); Sodium 139 mmol/L (136-145); Total Protein 5.4 g/dL (5.7-8.2)
[2023-07-17] MEDS: MIDAZOLAM DRIP 50 mg/50mL 50 ML IV SCH ×5 (07:34→22:29)
[2023-07-17 07:40] LABS: Base Excess 7.3 mmol/L (-2.0-2.0)
[2023-07-17 07:41] LABS: Basophils # (auto) 0 10 ^3/uL (0-0.2); Basophils % (auto) 0.2 % (0.0-2.0); Eosinophils # (auto) 0 10 ^3/uL (0-0.8); Eosinophils % (auto) 0.3 % (0.0-7.0); Hematocrit 38.7 % (41.0-53.0); Hemoglobin 12.9 g/dL (13.5-17.5); Lymphocytes % (auto) 18.7 % (10.0-50.0); Mean Corpuscular Hemoglobin 31.1 pg (28.0-32.0); Mean Corpuscular Hgb Conc. 33.3 g/dL (32.0-36.0); Mean Corpuscular Volume 93.2 fL (80.0-100.0); Monocytes # (auto) 1.1 10 ^3/uL (0-1.3); Monocytes % (auto) 9.8 % (0.0-12.0); Neutrophils # (auto) 7.7 10 ^3/uL (1.6-8.6); Nucleated Red Blood Cells % 0.2 %; Red Blood Cells 4.15 10^6/uL (4.5-5.90); Red Cell Distribution Width 13.1 % (11.8-14.3); White Blood Cell 10.9 10^3/uL (4.4-10.8)
[2023-07-17] MEDS: FAMOTIDINE (10MG/ML) 2ML VL IV SCH ×2 (09:13→22:15)
[2023-07-17] MEDS: AZITHROMYCIN 500MG/ 250ML 250 ML IV SCH (09:14)
[2023-07-17] MEDS: HEPARIN SODIUM (PORCINE) 5000 UNITS/ML 1ML VIAL SC SCH ×2 (09:14→22:21)
[2023-07-17] MEDS ORDERED: HEPARIN SODIUM (PORCINE) 5000 UNITS/ML 1ML VIAL SC SCH (10:00)
[2023-07-17] MEDS: VANCOMYCIN 1GM/250ML 250 ML IV SCH ×2 (11:08→20:52)
[2023-07-17] MEDS: PROPOFOL 100 ML IV SCH (12:59)
[2023-07-17] MEDS ORDERED: OPTISON 3ml Vial for INJ IV ONE (14:08)
[2023-07-17] MEDS ORDERED: ACETAMINOPHEN 325 MG TAB PO PRN (17:15)
[2023-07-17] MEDS: NOREPINEPHRINE 8 MG/250ML KIT 250 ML IV SCH (22:00)
[2023-07-17] MEDS: CEFEPIME 1GM/ 50ML 50 ML IV SCH (22:00)
[2023-07-17] MEDS: LACTULOSE 20Gm/30ML SOLN PO SCH (22:15)
[2023-07-18] VITALS (108 sets, daily range): BP systolic 85–152; BP diastolic 45–82; PULSE 64–86; RESP 11–23; TEMP 97.9–99.9; O2SAT 91–100
[2023-07-18] MEDS: ACCU-CHEK COMFORT CURVE STRIP VI SCH ×5 (00:01→23:48)
[2023-07-18] MEDS: MIDAZOLAM DRIP 50 mg/50mL 50 ML IV SCH ×5 (02:24→23:09)
[2023-07-18 04:13] LABS: Basophils # (auto) 0 10 ^3/uL (0-0.2); Basophils % (auto) 0.2 % (0.0-2.0); Eosinophils # (auto) 0.1 10 ^3/uL (0-0.8); Eosinophils % (auto) 0.7 % (0.0-7.0); Hematocrit 37.8 % (41.0-53.0); Hemoglobin 12.5 g/dL (13.5-17.5); Lymphocytes # (auto) 1.6 10 ^3/uL (0.4-5.4); Lymphocytes % (auto) 12.4 % (10.0-50.0); Mean Corpuscular Hemoglobin 30.9 pg (28.0-32.0); Mean Corpuscular Volume 93.5 fL (80.0-100.0); Monocytes # (auto) 0.7 10 ^3/uL (0-1.3); Monocytes % (auto) 5.4 % (0.0-12.0); Neutrophils # (auto) 10.4 10 ^3/uL (1.6-8.6); Neutrophils % (auto) 81.3 % (37.0-80.0); Nucleated Red Blood Cells % 0.1 %; Red Blood Cells 4.04 10^6/uL (4.5-5.90); Red Cell Distribution Width 13.5 % (11.8-14.3); White Blood Cell 12.8 10^3/uL (4.4-10.8)
[2023-07-18 04:53] LABS: Alanine Aminotransferase 13 U/L (7-40); Albumin 3.3 g/dL (3.2-4.8); Alkaline Phosphatase 76 U/L (46-116); Anion Gap 5 (5-15); Aspartate Aminotransferase 15 U/L (13-40); Bilirubin, Total 0.6 mg/dL (0.2-1.0); Calcium 8.9 mg/dL (8.7-10.4); Carbon Dioxide 30 mmol/L (20-30); Chloride 103 mmol/L (98-107); Glucose 107 mg/dL (74-106); Sodium 138 mmol/L (136-145)
[2023-07-18 04:58] LABS: BUN/Creatinine Ratio 11.4 (10.0-20.0); Blood Urea Nitrogen < 5 mg/dL (9-23)
[2023-07-18] MEDS: InsuLIN REG 1unit/0.01ml Soln (100units/ml) SC SCH ×5 (06:00→23:48)
[2023-07-18] MEDS: CEFEPIME 1GM/ 50ML 50 ML IV SCH (06:00)
[2023-07-18] MEDS: VANCOMYCIN 1GM/250ML 250 ML IV SCH (06:57)
[2023-07-18 07:07] LABS: Base Excess 3.4 mmol/L (-2.0-2.0)
[2023-07-18] MEDS: POTASSIUM CHL 20MEQ/100ML 100 ML IV SCH ×2 (08:09→09:38)
[2023-07-18] MEDS: AZITHROMYCIN 500MG/ 250ML 250 ML IV SCH (08:40)
[2023-07-18] MEDS: LACTULOSE 20Gm/30ML SOLN PO SCH ×2 (08:57→21:51)
[2023-07-18] MEDS: HEPARIN SODIUM (PORCINE) 5000 UNITS/ML 1ML VIAL SC SCH (08:58)
[2023-07-18] MEDS: FAMOTIDINE (10MG/ML) 2ML VL IV SCH ×2 (08:58→21:51)
[2023-07-18] MEDS ORDERED: FUROSEMIDE 40 MG/4 ML VIAL IV ONE (09:00)
[2023-07-18 10:18] LABS: Free T3 2.22 pg/mL (2.3-4.2)
[2023-07-18 10:19] LABS: Free T4 (Free Thyroxine) 0.77 ng/dL (0.89-1.76)
[2023-07-18] MEDS ORDERED: levoFLOXacin 500MG 100 ML IV ONE (13:00)
[2023-07-18] MEDS ORDERED: Jevity 1.2 Cal/Fiber 1 Liter GT SCH (13:00)
[2023-07-18 13:56] LABS: Urine Bacteria FEW /hpf (None Seen); Urine Blood Negative /uL (Negative); Urine Clarity Clear (Clear); Urine Color Colorless (Yellow); Urine Protein, UAD Negative (Negative); Urine Specific Gravity 1.009 (1.001-1.035); Urine Urobilinogen Normal (Negative); Urine WBC 6 /hpf (0 - 3); Urine pH 7.5 (5.0-8.0)
[2023-07-18] MEDS ORDERED: LIDOCAINE 1% (LOCAL ANESTH.) PF 5ml SDV ID ONE (15:00)
[2023-07-18] MEDS ORDERED: VANCOMYCIN 1GM/250ML 250 ML IV SCH (18:00)
[2023-07-18] MEDS: PROPOFOL 100 ML IV SCH (20:15)
[2023-07-18] MEDS: SODIUM CHLOR 0.9% PF (SALINE LOCK) 10ML VIAL/SYR IV SCH (21:52)
[2023-07-18] MEDS: NOREPINEPHRINE 8 MG/250ML KIT 250 ML IV SCH (21:58)
[2023-07-19] VITALS (108 sets, daily range): BP systolic 84–144; BP diastolic 43–82; PULSE 71–97; RESP 15–23; TEMP 98.4–100.2; O2SAT 91–99
[2023-07-19] MEDS: MIDAZOLAM DRIP 50 mg/50mL 50 ML IV SCH ×6 (03:13→22:38)
[2023-07-19 04:29] LABS: Basophils # (auto) 0 10 ^3/uL (0-0.2); Basophils % (auto) 0.3 % (0.0-2.0); Eosinophils # (auto) 0.1 10 ^3/uL (0-0.8); Eosinophils % (auto) 0.6 % (0.0-7.0); Hematocrit 37.1 % (41.0-53.0); Hemoglobin 12.6 g/dL (13.5-17.5); Lymphocytes # (auto) 1.3 10 ^3/uL (0.4-5.4); Lymphocytes % (auto) 11.3 % (10.0-50.0); Mean Corpuscular Volume 91.2 fL (80.0-100.0); Monocytes # (auto) 0.6 10 ^3/uL (0-1.3); Monocytes % (auto) 4.9 % (0.0-12.0); Neutrophils # (auto) 9.2 10 ^3/uL (1.6-8.6); Neutrophils % (auto) 82.9 % (37.0-80.0); Red Blood Cells 4.07 10^6/uL (4.5-5.90); White Blood Cell 11.2 10^3/uL (4.4-10.8)
[2023-07-19] MEDS: InsuLIN REG 1unit/0.01ml Soln (100units/ml) SC SCH ×4 (05:23→23:49)
[2023-07-19] MEDS: ACCU-CHEK COMFORT CURVE STRIP VI SCH ×4 (05:23→23:45)
[2023-07-19 07:53] LABS: Chloride 99 mmol/L (98-107); Sodium 136 mmol/L (136-145)
[2023-07-19 07:54] LABS: Anion Gap 4 (5-15); Carbon Dioxide 33 mmol/L (20-30)
[2023-07-19 07:55] LABS: Calcium 9.6 mg/dL (8.5-10.1)
[2023-07-19 07:59] LABS: Glucose 135 mg/dL (74-106)
[2023-07-19 08:00] LABS: BUN/Creatinine Ratio 8.8 (10.0-20.0); Blood Urea Nitrogen < 5 mg/dL (9-23)
[2023-07-19] MEDS: FAMOTIDINE (10MG/ML) 2ML VL IV SCH ×2 (08:59→22:00)
[2023-07-19] MEDS: ENOXAPARIN SOD 40 MG/0.4 ML SYRINGE SC SCH (08:59)
[2023-07-19] MEDS: LACTULOSE 20Gm/30ML SOLN PO SCH ×2 (08:59→22:00)
[2023-07-19] MEDS: SODIUM CHLOR 0.9% PF (SALINE LOCK) 10ML VIAL/SYR IV SCH ×2 (09:00→22:14)
[2023-07-19] MEDS ORDERED: levoFLOXacin 500MG 100 ML IV SCH (10:00)
[2023-07-19] MEDS ORDERED: CEFTRIAXONE SODIUM 2 GM in D5W 5% 100 ML IV ONE (12:30)
[2023-07-19] MEDS ORDERED: POTASSIUM EFFERVESENT TAB 25 MEQ GT ONE (12:30)
[2023-07-19] MEDS ORDERED: VANCOMYCIN PER PHARMACY 0 MG IV SCH (12:30)
[2023-07-19] MEDS: VANCOMYCIN 1GM/250ML 250 ML IV SCH ×2 (13:24→20:51)
[2023-07-19] MEDS: PROPOFOL 100 ML IV SCH (15:08)
[2023-07-19] MEDS: NOREPINEPHRINE 8 MG/250ML KIT 250 ML IV SCH (22:00)
[2023-07-20] VITALS (108 sets, daily range): BP systolic 84–162; BP diastolic 45–95; PULSE 65–106; RESP 13–19; TEMP 98.1–99.5; O2SAT 93–100
[2023-07-20] MEDS: PROPOFOL 100 ML IV SCH (00:40)
[2023-07-20] MEDS: MIDAZOLAM DRIP 50 mg/50mL 50 ML IV SCH ×5 (01:57→20:56)
[2023-07-20 03:59] LABS: Basophils # (auto) 0 10 ^3/uL (0-0.2); Basophils % (auto) 0.4 % (0.0-2.0); Eosinophils # (auto) 0.1 10 ^3/uL (0-0.8); Eosinophils % (auto) 1.2 % (0.0-7.0); Hematocrit 35.7 % (41.0-53.0); Hemoglobin 12.3 g/dL (13.5-17.5); Lymphocytes # (auto) 1.1 10 ^3/uL (0.4-5.4); Lymphocytes % (auto) 12.2 % (10.0-50.0); Mean Corpuscular Hemoglobin 31.5 pg (28.0-32.0); Mean Corpuscular Hgb Conc. 34.5 g/dL (32.0-36.0); Mean Corpuscular Volume 91.4 fL (80.0-100.0); Monocytes # (auto) 0.6 10 ^3/uL (0-1.3); Monocytes % (auto) 6.8 % (0.0-12.0); Neutrophils # (auto) 7.3 10 ^3/uL (1.6-8.6); Neutrophils % (auto) 79.4 % (37.0-80.0); Red Blood Cells 3.91 10^6/uL (4.5-5.90); Red Cell Distribution Width 13.1 % (11.8-14.3); White Blood Cell 9.1 10^3/uL (4.4-10.8)
[2023-07-20 04:09] LABS: Chloride 99 mmol/L (98-107); Potassium 3.1 mmol/L (3.5-5.1); Sodium 137 mmol/L (136-145)
[2023-07-20 04:10] LABS: Anion Gap 3 (5-15); Calcium 9.6 mg/dL (8.7-10.4); Carbon Dioxide 35 mmol/L (20-30)
[2023-07-20 04:15] LABS: Glucose 146 mg/dL (74-106)
[2023-07-20 04:21] LABS: BUN/Creatinine Ratio 10.2 (10.0-20.0); Blood Urea Nitrogen < 5 mg/dL (9-23)
[2023-07-20] MEDS: VANCOMYCIN 1GM/250ML 250 ML IV SCH ×4 (05:00→23:56)
[2023-07-20] MEDS: InsuLIN REG 1unit/0.01ml Soln (100units/ml) SC SCH ×3 (06:00→18:11)
[2023-07-20] MEDS: ACCU-CHEK COMFORT CURVE STRIP VI SCH ×3 (06:00→18:04)
[2023-07-20 07:05] LABS: Base Excess 6.6 mmol/L (-2.0-2.0)
[2023-07-20] MEDS: FAMOTIDINE (10MG/ML) 2ML VL IV SCH ×2 (10:24→22:20)
[2023-07-20] MEDS: ENOXAPARIN SOD 40 MG/0.4 ML SYRINGE SC SCH (10:24)
[2023-07-20] MEDS: LACTULOSE 20Gm/30ML SOLN PO SCH ×2 (10:25→22:20)
[2023-07-20] MEDS: CEFTRIAXONE SODIUM 2 GM in D5W 5% 100 ML IV SCH (10:33)
[2023-07-20] MEDS: SODIUM CHLOR 0.9% PF (SALINE LOCK) 10ML VIAL/SYR IV SCH ×2 (10:34→22:20)
[2023-07-20] MEDS ORDERED: POTASSIUM EFFERVESENT TAB 25 MEQ GT ONE (11:45)
[2023-07-20] MEDS: NOREPINEPHRINE 8 MG/250ML KIT 250 ML IV SCH (22:00)
[2023-07-21] VITALS (104 sets, daily range): BP systolic 76–153; BP diastolic 45–84; PULSE 69–93; RESP 14–21; TEMP 98.4–100.2; O2SAT 86–100
[2023-07-21] MEDS: MIDAZOLAM DRIP 50 mg/50mL 50 ML IV SCH (02:08)
[2023-07-21 04:37] LABS: Basophils # (auto) 0 10 ^3/uL (0-0.2); Basophils % (auto) 0.4 % (0.0-2.0); Eosinophils # (auto) 0.1 10 ^3/uL (0-0.8); Eosinophils % (auto) 1.6 % (0.0-7.0); Hematocrit 38.6 % (41.0-53.0); Hemoglobin 13.2 g/dL (13.5-17.5); Lymphocytes # (auto) 1.2 10 ^3/uL (0.4-5.4); Lymphocytes % (auto) 18.9 % (10.0-50.0); Mean Corpuscular Hemoglobin 31.3 pg (28.0-32.0); Mean Corpuscular Hgb Conc. 34.3 g/dL (32.0-36.0); Mean Corpuscular Volume 91.4 fL (80.0-100.0); Monocytes # (auto) 0.8 10 ^3/uL (0-1.3); Neutrophils # (auto) 4.3 10 ^3/uL (1.6-8.6); Neutrophils % (auto) 66.1 % (37.0-80.0); Red Blood Cells 4.22 10^6/uL (4.5-5.90); Red Cell Distribution Width 13.1 % (11.8-14.3); White Blood Cell 6.5 10^3/uL (4.4-10.8)
[2023-07-21 04:51] LABS: Chloride 100 mmol/L (98-107); Potassium 3.3 mmol/L (3.5-5.1)
[2023-07-21 04:52] LABS: Anion Gap 4 (5-15); Carbon Dioxide 32 mmol/L (20-30); Sodium 136 mmol/L (136-145)
[2023-07-21 04:53] LABS: Calcium 9.7 mg/dL (8.7-10.4)
[2023-07-21 04:58] LABS: Blood Urea Nitrogen 5 mg/dL (9-23); Glucose 139 mg/dL (74-106)
[2023-07-21] MEDS: ACCU-CHEK COMFORT CURVE STRIP VI SCH ×5 (05:50→23:56)
[2023-07-21] MEDS: InsuLIN REG 1unit/0.01ml Soln (100units/ml) SC SCH ×5 (05:50→23:56)
[2023-07-21] MEDS: VANCOMYCIN 1GM/250ML 250 ML IV SCH ×3 (06:26→23:56)
[2023-07-21] MEDS: FAMOTIDINE (10MG/ML) 2ML VL IV SCH ×2 (09:13→21:48)
[2023-07-21] MEDS: CEFTRIAXONE SODIUM 2 GM in D5W 5% 100 ML IV SCH (09:13)
[2023-07-21] MEDS: SODIUM CHLOR 0.9% PF (SALINE LOCK) 10ML VIAL/SYR IV SCH ×2 (09:13→21:49)
[2023-07-21] MEDS: LACTULOSE 20Gm/30ML SOLN PO SCH ×2 (09:13→21:48)
[2023-07-21] MEDS: ENOXAPARIN SOD 40 MG/0.4 ML SYRINGE SC SCH (09:13)
[2023-07-21] MEDS ORDERED: POTASSIUM EFFERVESENT TAB 25 MEQ GT ONE (12:30)
[2023-07-21] MEDS: PROPOFOL 100 ML IV SCH (20:15)
[2023-07-21] MEDS: NOREPINEPHRINE 8 MG/250ML KIT 250 ML IV SCH (22:00)
[2023-07-22] VITALS (95 sets, daily range): BP systolic 72–151; BP diastolic 17–87; PULSE 53–136; RESP 11–57; TEMP 95.9–100.2; O2SAT 86–100
[2023-07-22 04:57] LABS: Alanine Aminotransferase 17 U/L (7-40); Albumin 3.8 g/dL (3.2-4.8); Alkaline Phosphatase 75 U/L (46-116); Anion Gap 9 (5-15); Aspartate Aminotransferase 24 U/L (13-40); BUN/Creatinine Ratio 10.5 (10.0-20.0); Bilirubin, Total 0.3 mg/dL (0.2-1.0); Blood Urea Nitrogen 8 mg/dL (9-23); Calcium 9.9 mg/dL (8.5-10.1); Carbon Dioxide 28 mmol/L (20-30); Chloride 99 mmol/L (98-107); Glucose 128 mg/dL (74-106); Potassium 3.9 mmol/L (3.5-5.1); Sodium 136 mmol/L (136-145); Total Protein 6.9 g/dL (5.7-8.2)
[2023-07-22] MEDS: InsuLIN REG 1unit/0.01ml Soln (100units/ml) SC SCH ×4 (06:00→23:58)
[2023-07-22] MEDS: ACCU-CHEK COMFORT CURVE STRIP VI SCH ×4 (06:00→23:58)
[2023-07-22] MEDS: VANCOMYCIN 1GM/250ML 250 ML IV SCH ×2 (06:35→15:00)
[2023-07-22 07:40] LABS: Basophils # (auto) 0 10 ^3/uL (0-0.2); Basophils % (auto) 0.2 % (0.0-2.0); Eosinophils # (auto) 0.1 10 ^3/uL (0-0.8); Eosinophils % (auto) 1.6 % (0.0-7.0); Hematocrit 36.3 % (41.0-53.0); Hemoglobin 12.4 g/dL (13.5-17.5); Lymphocytes # (auto) 1.2 10 ^3/uL (0.4-5.4); Mean Corpuscular Hemoglobin 31.2 pg (28.0-32.0); Mean Corpuscular Hgb Conc. 34.1 g/dL (32.0-36.0); Mean Corpuscular Volume 91.5 fL (80.0-100.0); Monocytes # (auto) 1.2 10 ^3/uL (0-1.3); Monocytes % (auto) 17.1 % (0.0-12.0); Neutrophils # (auto) 4.5 10 ^3/uL (1.6-8.6); Neutrophils % (auto) 64.1 % (37.0-80.0); Red Blood Cells 3.96 10^6/uL (4.5-5.90); Red Cell Distribution Width 13.1 % (11.8-14.3)
[2023-07-22] MEDS: ENOXAPARIN SOD 40 MG/0.4 ML SYRINGE SC SCH (08:59)
[2023-07-22] MEDS: LACTULOSE 20Gm/30ML SOLN PO SCH ×2 (08:59→21:36)
[2023-07-22] MEDS: CEFTRIAXONE SODIUM 2 GM in D5W 5% 100 ML IV SCH (08:59)
[2023-07-22] MEDS: SODIUM CHLOR 0.9% PF (SALINE LOCK) 10ML VIAL/SYR IV SCH ×2 (09:09→21:31)
[2023-07-22] MEDS: FAMOTIDINE (10MG/ML) 2ML VL IV SCH ×2 (09:10→21:31)
[2023-07-22 10:56] LABS: Base Excess 5.2 mmol/L (-2.0-2.0)
[2023-07-22] MEDS ORDERED: ROCURONIUM 10MG/ML 10ML VIAL IV ONE (12:45)
[2023-07-22] MEDS ORDERED: DexAMETHasone SOD PHOS 10MG/1ML VIAL INJ ONE (12:46)
[2023-07-22] MEDS ORDERED: ETOMIDATE (2MG/ML) 20ML VIAL IV ONE (12:46)
[2023-07-22] MEDS ORDERED: ALBUTEROL SULF 2.5 MG/0.5ML(0.5%) NEB SOLN ONE (12:47)
[2023-07-22] MEDS ORDERED: EPINEPHrine HCL 0.5 ML NEB ONE (12:47)
[2023-07-22] MEDS ORDERED: IPRATROPIUM BROM 0.5 MG/2.5ML INH SOL ONE (12:47)
[2023-07-22] MEDS ORDERED: EPINEPHrine HCL 0.5 ML NEB NEB ONE (13:00)
[2023-07-22] MEDS ORDERED: IPRATROPIUM BROM 0.5 MG/2.5ML INH SOL NEB ONE (13:00)
[2023-07-22] MEDS ORDERED: ALBUTEROL SULF 2.5 MG/0.5ML(0.5%) NEB SOLN NEB ONE (13:00)
[2023-07-22] MEDS: fentaNYL Drip 2500mCg/250mlNS 250 ML IV SCH (13:15)
[2023-07-22] MEDS: NOREPINEPHRINE 8 MG/250ML KIT 250 ML IV SCH (13:24)
[2023-07-22] MEDS ORDERED: GLYCOPYRROLATE 0.2 MG/ML 1ML VIAL IV ONE (15:15)
[2023-07-22] MEDS: ALBUTEROL SULF 2.5 MG/0.5ML(0.5%) NEB SOLN NEB SCH (18:11)
[2023-07-22] MEDS: IPRATROPIUM BROM 0.5 MG/2.5ML INH SOL NEB SCH (18:11)
[2023-07-22] MEDS: PROPOFOL 100 ML IV SCH (19:29)
[2023-07-22] MEDS: MIDAZOLAM DRIP 50 mg/50mL 50 ML IV SCH (20:15)
[2023-07-22] MEDS: methylPREDNISolone SOD SUCC 40 MG/ML VL IV SCH (21:30)
[2023-07-23] VITALS (110 sets, daily range): BP systolic 73–141; BP diastolic 34–89; PULSE 64–100; RESP 6–22; TEMP 96.6–98.8; O2SAT 93–100
[2023-07-23] MEDS: ALBUTEROL SULF 2.5 MG/0.5ML(0.5%) NEB SOLN NEB SCH ×4 (00:12→18:45)
[2023-07-23] MEDS: IPRATROPIUM BROM 0.5 MG/2.5ML INH SOL NEB SCH ×4 (00:12→18:45)
[2023-07-23] MEDS: PROPOFOL 100 ML IV SCH ×3 (02:26→22:01)
[2023-07-23 04:05] LABS: Basophils # (auto) 0 10 ^3/uL (0-0.2); Basophils % (auto) 0.1 % (0.0-2.0); Eosinophils # (auto) 0 10 ^3/uL (0-0.8); Hemoglobin 12.2 g/dL (13.5-17.5); Lymphocytes # (auto) 0.5 10 ^3/uL (0.4-5.4); Lymphocytes % (auto) 7.2 % (10.0-50.0); Mean Corpuscular Hemoglobin 31.4 pg (28.0-32.0); Mean Corpuscular Hgb Conc. 34.8 g/dL (32.0-36.0); Mean Corpuscular Volume 90.2 fL (80.0-100.0); Monocytes # (auto) 0.2 10 ^3/uL (0-1.3); Monocytes % (auto) 3.6 % (0.0-12.0); Neutrophils # (auto) 5.7 10 ^3/uL (1.6-8.6); Neutrophils % (auto) 89.1 % (37.0-80.0); Nucleated Red Blood Cells % 0.1 %; Red Blood Cells 3.88 10^6/uL (4.5-5.90); Red Cell Distribution Width 12.6 % (11.8-14.3); White Blood Cell 6.4 10^3/uL (4.4-10.8)
[2023-07-23 04:21] LABS: Alanine Aminotransferase 17 U/L (7-40); Albumin 3.7 g/dL (3.2-4.8); Alkaline Phosphatase 76 U/L (46-116); Anion Gap 8 (5-15); BUN/Creatinine Ratio 16.9 (10.0-20.0); Blood Urea Nitrogen 13 mg/dL (9-23); Calcium 9.4 mg/dL (8.7-10.4); Carbon Dioxide 24 mmol/L (20-30); Chloride 100 mmol/L (98-107); Glucose 226 mg/dL (74-106); Potassium 3.7 mmol/L (3.5-5.1); Sodium 132 mmol/L (136-145)
[2023-07-23 04:22] LABS: Bilirubin, Total < 0.2 mg/dL (0.2-1.0); Total Protein 6.7 g/dL (5.7-8.2)
[2023-07-23 04:29] LABS: Aspartate Aminotransferase 19 U/L (13-40)
[2023-07-23] MEDS: fentaNYL Drip 2500mCg/250mlNS 250 ML IV SCH ×2 (05:34→18:12)
[2023-07-23] MEDS: ACCU-CHEK COMFORT CURVE STRIP VI SCH ×4 (05:36→23:38)
[2023-07-23] MEDS: InsuLIN REG 1unit/0.01ml Soln (100units/ml) SC SCH ×4 (05:38→23:40)
[2023-07-23] MEDS: methylPREDNISolone SOD SUCC 40 MG/ML VL IV SCH ×2 (09:49→21:37)
[2023-07-23] MEDS: FAMOTIDINE (10MG/ML) 2ML VL IV SCH ×2 (09:55→21:37)
[2023-07-23] MEDS: ENOXAPARIN SOD 40 MG/0.4 ML SYRINGE SC SCH (09:59)
[2023-07-23] MEDS: LACTULOSE 20Gm/30ML SOLN PO SCH ×2 (10:02→21:37)
[2023-07-23] MEDS: CEFTRIAXONE SODIUM 2 GM in D5W 5% 100 ML IV SCH (10:10)
[2023-07-23] MEDS: SODIUM CHLOR 0.9% PF (SALINE LOCK) 10ML VIAL/SYR IV SCH ×2 (12:35→21:37)
[2023-07-23] MEDS: VANCOMYCIN 1GM/250ML 250 ML IV SCH (13:29)
[2023-07-23] MEDS: MIDAZOLAM DRIP 50 mg/50mL 50 ML IV SCH (20:15)
[2023-07-23] MEDS ORDERED: PROPOFOL 100 ML IV ONE (21:48)
[2023-07-23] MEDS: NOREPINEPHRINE 8 MG/250ML KIT 250 ML IV SCH (22:00)
[2023-07-24] VITALS (109 sets, daily range): BP systolic 77–151; BP diastolic 5–79; PULSE 63–106; RESP 13–20; TEMP 96.6–98.1; O2SAT 92–100
[2023-07-24] MEDS: IPRATROPIUM BROM 0.5 MG/2.5ML INH SOL NEB SCH ×5 (00:35→23:39)
[2023-07-24] MEDS: ALBUTEROL SULF 2.5 MG/0.5ML(0.5%) NEB SOLN NEB SCH ×5 (00:35→23:39)
[2023-07-24] MEDS: PROPOFOL 100 ML IV SCH ×4 (01:04→17:33)
[2023-07-24] MEDS: MIDAZOLAM DRIP 50 mg/50mL 50 ML IV SCH ×2 (01:48→08:11)
[2023-07-24] MEDS: VANCOMYCIN 1GM/250ML 250 ML IV SCH ×2 (02:31→16:46)
[2023-07-24] MEDS: fentaNYL Drip 2500mCg/250mlNS 250 ML IV SCH ×2 (05:11→16:51)
[2023-07-24] MEDS: ACCU-CHEK COMFORT CURVE STRIP VI SCH ×4 (05:28→23:47)
[2023-07-24] MEDS: InsuLIN REG 1unit/0.01ml Soln (100units/ml) SC SCH ×4 (05:31→23:49)
[2023-07-24] MEDS: CEFTRIAXONE SODIUM 2 GM in D5W 5% 100 ML IV SCH (08:11)
[2023-07-24] MEDS: FAMOTIDINE (10MG/ML) 2ML VL IV SCH ×2 (09:12→21:31)
[2023-07-24] MEDS: ENOXAPARIN SOD 40 MG/0.4 ML SYRINGE SC SCH (09:12)
[2023-07-24] MEDS: LACTULOSE 20Gm/30ML SOLN PO SCH ×2 (09:12→21:31)
[2023-07-24] MEDS: SODIUM CHLOR 0.9% PF (SALINE LOCK) 10ML VIAL/SYR IV SCH ×2 (09:12→21:31)
[2023-07-24] MEDS: methylPREDNISolone SOD SUCC 40 MG/ML VL IV SCH ×2 (09:12→21:31)
[2023-07-24 09:25] LABS: Base Excess 0.8 mmol/L (-2.0-2.0)
[2023-07-24] MEDS ORDERED: EPINEPHrine HCL 1 MG/1 ML AMP ONE (12:05)
[2023-07-24] MEDS ORDERED: GLYCOPYRROLATE 0.2 MG/ML 1ML VIAL ONE (12:05)
[2023-07-24] MEDS ORDERED: LIDOCAINE 2%HCL (LOCAL ANESTH.) INJ 20ML MDV ONE (12:05)
[2023-07-24 12:29] LABS: Partial Thromboplastin Time 27.5 SEC (24.5-34.5); Prothrombin Time 10.5 sec (9.3-11.8)
[2023-07-24] MEDS: NOREPINEPHRINE 8 MG/250ML KIT 250 ML IV SCH (12:44)
[2023-07-24] MEDS ORDERED: Glucerna 1.2 Cal 1Liter BOTTLE GT SCH (13:15)
[2023-07-24] MEDS ORDERED: INSULIN LANTUS (GLARGINE) 1 /0.01ml (100units/ml) SC ONE (13:15)
[2023-07-24] MEDS ORDERED: ROCURONIUM 10MG/ML 10ML VIAL IV ONE ×2 (13:51→14:00)
[2023-07-25] VITALS (107 sets, daily range): BP systolic 82–168; BP diastolic 38–97; PULSE 65–115; RESP 11–35; TEMP 97.3–100.4; O2SAT 94–100
[2023-07-25] MEDS: MIDAZOLAM DRIP 50 mg/50mL 50 ML IV SCH (00:12)
[2023-07-25] MEDS: PROPOFOL 100 ML IV SCH ×2 (00:12→06:31)
[2023-07-25] MEDS: fentaNYL Drip 2500mCg/250mlNS 250 ML IV SCH ×2 (02:52→23:16)
[2023-07-25] MEDS: NOREPINEPHRINE 8 MG/250ML KIT 250 ML IV SCH (03:04)
[2023-07-25 03:41] LABS: Basophils # (auto) 0.1 10 ^3/uL (0-0.2); Basophils % (auto) 0.4 % (0.0-2.0); Eosinophils # (auto) 0 10 ^3/uL (0-0.8); Hematocrit 36.7 % (41.0-53.0); Hemoglobin 12.5 g/dL (13.5-17.5); Lymphocytes # (auto) 0.4 10 ^3/uL (0.4-5.4); Lymphocytes % (auto) 2.6 % (10.0-50.0); Mean Corpuscular Hemoglobin 31.4 pg (28.0-32.0); Mean Corpuscular Volume 92.3 fL (80.0-100.0); Monocytes # (auto) 0.3 10 ^3/uL (0-1.3); Monocytes % (auto) 2.1 % (0.0-12.0); Neutrophils # (auto) 14.9 10 ^3/uL (1.6-8.6); Neutrophils % (auto) 94.9 % (37.0-80.0); Red Blood Cells 3.98 10^6/uL (4.5-5.90); White Blood Cell 15.7 10^3/uL (4.4-10.8)
[2023-07-25 04:49] LABS: Alanine Aminotransferase 18 U/L (7-40); Albumin 3.9 g/dL (3.2-4.8); Alkaline Phosphatase 73 U/L (46-116); Anion Gap 10 (5-15); BUN/Creatinine Ratio 14.3 (10.0-20.0); Bilirubin, Total < 0.2 mg/dL (0.2-1.0); Blood Urea Nitrogen 11 mg/dL (9-23); Calcium 9.5 mg/dL (8.5-10.1); Carbon Dioxide 25 mmol/L (20-30); Chloride 100 mmol/L (98-107); Glucose 261 mg/dL (74-106); Potassium 4.3 mmol/L (3.5-5.1); Sodium 135 mmol/L (136-145)
[2023-07-25 04:50] LABS: Total Protein 7.1 g/dL (5.7-8.2)
[2023-07-25 04:54] LABS: Aspartate Aminotransferase 17 U/L (13-40)
[2023-07-25] MEDS: ACCU-CHEK COMFORT CURVE STRIP VI SCH ×3 (05:39→17:35)
[2023-07-25] MEDS: InsuLIN REG 1unit/0.01ml Soln (100units/ml) SC SCH ×3 (05:41→17:39)
[2023-07-25] MEDS: ALBUTEROL SULF 2.5 MG/0.5ML(0.5%) NEB SOLN NEB SCH ×3 (06:19→18:05)
[2023-07-25] MEDS: IPRATROPIUM BROM 0.5 MG/2.5ML INH SOL NEB SCH ×3 (06:19→18:05)
[2023-07-25 09:01] LABS: Base Excess 3.8 mmol/L (-2.0-2.0)
[2023-07-25] MEDS: LACTULOSE 20Gm/30ML SOLN PO SCH ×2 (10:00→22:07)
[2023-07-25] MEDS: INSULIN LANTUS (GLARGINE) 1 /0.01ml (100units/ml) SC SCH (10:00)
[2023-07-25] MEDS: FAMOTIDINE (10MG/ML) 2ML VL IV SCH ×2 (10:33→22:02)
[2023-07-25] MEDS: methylPREDNISolone SOD SUCC 40 MG/ML VL IV SCH (10:34)
[2023-07-25] MEDS: SODIUM CHLOR 0.9% PF (SALINE LOCK) 10ML VIAL/SYR IV SCH ×2 (10:34→22:03)
[2023-07-25] MEDS: ENOXAPARIN SOD 40 MG/0.4 ML SYRINGE SC SCH (10:34)
[2023-07-25] MEDS: CEFTRIAXONE SODIUM 2 GM in D5W 5% 100 ML IV SCH (10:56)
[2023-07-25] MEDS ORDERED: POTASSIUM CHL 20MEQ/100ML 100 ML IV SCH (11:15)
[2023-07-25] MEDS ORDERED: FUROSEMIDE 40 MG/4 ML VIAL IV ONE (11:30)
[2023-07-25] MEDS ORDERED: MAGNESIUM SULFATE 1GM/100ML 100 ML IV SCH (12:00)
[2023-07-25] MEDS: VANCOMYCIN 1GM/250ML 250 ML IV SCH (12:11)
[2023-07-26] VITALS (103 sets, daily range): BP systolic 79–142; BP diastolic 36–91; PULSE 84–109; RESP 11–43; TEMP 90.9–100.2; O2SAT 72–100
[2023-07-26] MEDS: ALBUTEROL SULF 2.5 MG/0.5ML(0.5%) NEB SOLN NEB SCH ×5 (00:20→23:44)
[2023-07-26] MEDS: IPRATROPIUM BROM 0.5 MG/2.5ML INH SOL NEB SCH ×5 (00:21→23:44)
[2023-07-26] MEDS: PROPOFOL 100 ML IV SCH (00:28)
[2023-07-26] MEDS: VANCOMYCIN 1GM/250ML 250 ML IV SCH ×2 (02:26→18:01)
[2023-07-26 04:23] LABS: Basophils # (auto) 0 10 ^3/uL (0-0.2); Basophils % (auto) 0.3 % (0.0-2.0); Eosinophils # (auto) 0 10 ^3/uL (0-0.8); Eosinophils % (auto) 0.2 % (0.0-7.0); Hematocrit 38.3 % (41.0-53.0); Lymphocytes # (auto) 2.6 10 ^3/uL (0.4-5.4); Lymphocytes % (auto) 22.1 % (10.0-50.0); Mean Corpuscular Hemoglobin 30.9 pg (28.0-32.0); Mean Corpuscular Hgb Conc. 33.8 g/dL (32.0-36.0); Mean Corpuscular Volume 91.4 fL (80.0-100.0); Monocytes % (auto) 8.5 % (0.0-12.0); Neutrophils # (auto) 8.1 10 ^3/uL (1.6-8.6); Neutrophils % (auto) 68.9 % (37.0-80.0); Red Blood Cells 4.19 10^6/uL (4.5-5.90); Red Cell Distribution Width 12.5 % (11.8-14.3); White Blood Cell 11.7 10^3/uL (4.4-10.8)
[2023-07-26 04:32] LABS: Anion Gap 8 (5-15); Carbon Dioxide 28 mmol/L (20-30); Chloride 98 mmol/L (98-107); Sodium 134 mmol/L (136-145)
[2023-07-26 04:33] LABS: Calcium 9.8 mg/dL (8.7-10.4)
[2023-07-26 04:37] LABS: Glucose 175 mg/dL (74-106)
[2023-07-26 04:38] LABS: BUN/Creatinine Ratio 18.2 (10.0-20.0); Blood Urea Nitrogen 16 mg/dL (9-23); Magnesium 1.9 mg/dL (1.6-2.6)
[2023-07-26] MEDS: ACCU-CHEK COMFORT CURVE STRIP VI SCH ×4 (06:00→18:01)
[2023-07-26] MEDS: InsuLIN REG 1unit/0.01ml Soln (100units/ml) SC SCH ×4 (06:00→18:07)
[2023-07-26] MEDS ORDERED: POTASSIUM CHL 20MEQ/100ML 100 ML IV ONE (07:00)
[2023-07-26 08:03] LABS: Base Excess 1.8 mmol/L (-2.0-2.0)
[2023-07-26] MEDS: LACTULOSE 20Gm/30ML SOLN PO SCH ×2 (10:09→22:10)
[2023-07-26] MEDS: methylPREDNISolone SOD SUCC 40 MG/ML VL IV SCH (10:09)
[2023-07-26] MEDS: ENOXAPARIN SOD 40 MG/0.4 ML SYRINGE SC SCH (10:10)
[2023-07-26] MEDS: FAMOTIDINE (10MG/ML) 2ML VL IV SCH ×2 (10:10→22:11)
[2023-07-26] MEDS: SODIUM CHLOR 0.9% PF (SALINE LOCK) 10ML VIAL/SYR IV SCH ×2 (10:10→22:11)
[2023-07-26] MEDS: INSULIN LANTUS (GLARGINE) 1 /0.01ml (100units/ml) SC SCH (10:25)
[2023-07-26] MEDS: CEFTRIAXONE SODIUM 2 GM in D5W 5% 100 ML IV SCH (10:29)
[2023-07-26] MEDS ORDERED: FUROSEMIDE 20 MG/2 ML VIAL IV ONE ×2 (12:30→14:45)
[2023-07-26 12:41] LABS: Base Excess 0.1 mmol/L (-2.0-2.0)
[2023-07-26] MEDS: POTASSIUM CHL 20MEQ/100ML 100 ML IV SCH ×2 (13:20→15:02)
[2023-07-26] MEDS: MAGNESIUM SULFATE 1GM/100ML 100 ML IV SCH ×2 (13:20→15:03)
[2023-07-26] MEDS: NOREPINEPHRINE 8 MG/250ML KIT 250 ML IV SCH (22:00)
[2023-07-26 23:34] LABS: Base Excess 0.5 mmol/L (-2.0-2.0)
[2023-07-27] VITALS (95 sets, daily range): BP systolic 81–129; BP diastolic 50–83; PULSE 70–107; RESP 11–38; TEMP 76.8–100.6; O2SAT 84–100
[2023-07-27] MEDS: ACCU-CHEK COMFORT CURVE STRIP VI SCH ×4 (00:45→18:00)
[2023-07-27] MEDS: InsuLIN REG 1unit/0.01ml Soln (100units/ml) SC SCH ×4 (00:47→18:00)
[2023-07-27 04:06] LABS: Basophils # (auto) 0 10 ^3/uL (0-0.2); Basophils % (auto) 0.2 % (0.0-2.0); Eosinophils # (auto) 0 10 ^3/uL (0-0.8); Eosinophils % (auto) 0.2 % (0.0-7.0); Hematocrit 34.7 % (41.0-53.0); Hemoglobin 11.7 g/dL (13.5-17.5); Lymphocytes % (auto) 5.6 % (10.0-50.0); Mean Corpuscular Hemoglobin 31.1 pg (28.0-32.0); Mean Corpuscular Hgb Conc. 33.7 g/dL (32.0-36.0); Mean Corpuscular Volume 92.2 fL (80.0-100.0); Monocytes # (auto) 0.6 10 ^3/uL (0-1.3); Monocytes % (auto) 3.2 % (0.0-12.0); Neutrophils # (auto) 16.5 10 ^3/uL (1.6-8.6); Neutrophils % (auto) 90.8 % (37.0-80.0); Red Blood Cells 3.77 10^6/uL (4.5-5.90); Red Cell Distribution Width 12.9 % (11.8-14.3); White Blood Cell 18.2 10^3/uL (4.4-10.8)
[2023-07-27 04:20] LABS: Alanine Aminotransferase 25 U/L (7-40); Alkaline Phosphatase 73 U/L (46-116); Anion Gap 10 (5-15); BUN/Creatinine Ratio 23.6 (10.0-20.0); Blood Urea Nitrogen 13 mg/dL (9-23); Calcium 7.7 mg/dL (8.7-10.4); Carbon Dioxide 24 mmol/L (20-30); Chloride 107 mmol/L (98-107); Glucose 105 mg/dL (74-106); Sodium 141 mmol/L (136-145)
[2023-07-27 04:21] LABS: Albumin 3.6 g/dL (3.2-4.8); Aspartate Aminotransferase 19 U/L (13-40)
[2023-07-27 04:22] LABS: Bilirubin, Total 0.4 mg/dL (0.2-1.0); Total Protein 6.5 g/dL (5.7-8.2)
[2023-07-27] MEDS: ALBUTEROL SULF 2.5 MG/0.5ML(0.5%) NEB SOLN NEB SCH ×4 (08:37→22:45)
[2023-07-27] MEDS: IPRATROPIUM BROM 0.5 MG/2.5ML INH SOL NEB SCH ×4 (08:37→22:45)
[2023-07-27] MEDS: VANCOMYCIN 1GM/250ML 250 ML IV SCH (09:23)
[2023-07-27] MEDS: FAMOTIDINE (10MG/ML) 2ML VL IV SCH (09:28)
[2023-07-27] MEDS: methylPREDNISolone SOD SUCC 40 MG/ML VL IV SCH (09:29)
[2023-07-27] MEDS: SODIUM CHLOR 0.9% PF (SALINE LOCK) 10ML VIAL/SYR IV SCH (09:29)
[2023-07-27] MEDS: ENOXAPARIN SOD 40 MG/0.4 ML SYRINGE SC SCH (09:30)
[2023-07-27] MEDS: INSULIN LANTUS (GLARGINE) 1 /0.01ml (100units/ml) SC SCH (10:00)
[2023-07-27] MEDS: LACTULOSE 20Gm/30ML SOLN PO SCH (10:00)
[2023-07-27] MEDS: POTASSIUM CHL 20MEQ/100ML 100 ML IV SCH ×4 (10:28→16:35)
[2023-07-27] MEDS: CEFTRIAXONE SODIUM 2 GM in D5W 5% 100 ML IV SCH (10:34)
[2023-07-27] MEDS ORDERED: EPINEPHrine HCL 0.5 ML NEB ONE (13:37)
[2023-07-27] MEDS ORDERED: ACETAMINOPHEN 650 MG RECT SUPP PR PRN (13:45)
[2023-07-27] MEDS ORDERED: FUROSEMIDE 20 MG/2 ML VIAL IV ONE (13:45)
[2023-07-27] MEDS ORDERED: EPINEPHrine HCL 0.5 ML NEB NEB ONE ×2 (14:00)
[2023-07-27 14:43] LABS: Base Excess 2.2 mmol/L (-2.0-2.0)
[2023-07-27] MEDS: NOREPINEPHRINE 8 MG/250ML KIT 250 ML IV SCH (22:00)
[2023-07-28] VITALS (41 sets, daily range): BP systolic 85–135; BP diastolic 49–90; PULSE 84–107; RESP 9–43; TEMP 98.1–99; O2SAT 89–100
[2023-07-28] MEDS: FAMOTIDINE (10MG/ML) 2ML VL IV SCH ×3 (00:09→21:52)
[2023-07-28] MEDS: SODIUM CHLOR 0.9% PF (SALINE LOCK) 10ML VIAL/SYR IV SCH ×3 (00:09→21:53)
[2023-07-28] MEDS: LACTULOSE 20Gm/30ML SOLN PO SCH ×3 (00:09→21:53)
[2023-07-28] MEDS: ACCU-CHEK COMFORT CURVE STRIP VI SCH ×4 (00:11→17:44)
[2023-07-28] MEDS: VANCOMYCIN 1GM/250ML 250 ML IV SCH ×2 (00:19→17:48)
[2023-07-28] MEDS: ALBUTEROL SULF 2.5 MG/0.5ML(0.5%) NEB SOLN NEB SCH ×3 (06:00→18:09)
[2023-07-28] MEDS: IPRATROPIUM BROM 0.5 MG/2.5ML INH SOL NEB SCH ×3 (06:00→18:09)
[2023-07-28] MEDS: ENOXAPARIN SOD 40 MG/0.4 ML SYRINGE SC SCH (10:00)
[2023-07-28] MEDS: CEFTRIAXONE SODIUM 2 GM in D5W 5% 100 ML IV SCH (10:00)
[2023-07-28 11:06] LABS: Basophils # (auto) 0 10 ^3/uL (0-0.2); Basophils % (auto) 0.3 % (0.0-2.0); Eosinophils # (auto) 0.1 10 ^3/uL (0-0.8); Eosinophils % (auto) 0.6 % (0.0-7.0); Hematocrit 39.9 % (41.0-53.0); Hemoglobin 13.2 g/dL (13.5-17.5); Lymphocytes # (auto) 1.4 10 ^3/uL (0.4-5.4); Lymphocytes % (auto) 8.8 % (10.0-50.0); Mean Corpuscular Hemoglobin 30.6 pg (28.0-32.0); Mean Corpuscular Volume 92.6 fL (80.0-100.0); Monocytes # (auto) 0.9 10 ^3/uL (0-1.3); Monocytes % (auto) 5.7 % (0.0-12.0); Neutrophils # (auto) 12.9 10 ^3/uL (1.6-8.6); Neutrophils % (auto) 84.6 % (37.0-80.0); Red Blood Cells 4.31 10^6/uL (4.5-5.90); Red Cell Distribution Width 12.8 % (11.8-14.3); White Blood Cell 15.3 10^3/uL (4.4-10.8)
[2023-07-28] MEDS: InsuLIN REG 1unit/0.01ml Soln (100units/ml) SC SCH ×3 (12:00→17:45)
[2023-07-28 12:42] LABS: Anion Gap 8 (5-15); BUN/Creatinine Ratio 32.9 (10.0-20.0); Calcium 9.6 mg/dL (8.7-10.4); Carbon Dioxide 27 mmol/L (20-30); Chloride 102 mmol/L (98-107); Glucose 110 mg/dL (74-106); Potassium 4.4 mmol/L (3.5-5.1); Sodium 137 mmol/L (136-145)
[2023-07-28 12:50] LABS: Blood Urea Nitrogen 24 mg/dL (9-23)
[2023-07-28] MEDS: NOREPINEPHRINE 8 MG/250ML KIT 250 ML IV SCH (21:53)
[2023-07-29] VITALS (36 sets, daily range): BP systolic 94–116; BP diastolic 44–94; PULSE 86–102; RESP 12–50; TEMP 97.8–99.9; O2SAT 91–100
[2023-07-29] MEDS: ALBUTEROL SULF 2.5 MG/0.5ML(0.5%) NEB SOLN NEB SCH ×4 (00:01→18:38)
[2023-07-29] MEDS: IPRATROPIUM BROM 0.5 MG/2.5ML INH SOL NEB SCH ×4 (00:01→18:38)
[2023-07-29] MEDS: ACCU-CHEK COMFORT CURVE STRIP VI SCH ×4 (00:25→18:03)
[2023-07-29] MEDS: InsuLIN REG 1unit/0.01ml Soln (100units/ml) SC SCH ×4 (06:00→18:00)
[2023-07-29] MEDS: VANCOMYCIN 1GM/250ML 250 ML IV SCH ×2 (06:24→21:12)
[2023-07-29] MEDS: FAMOTIDINE (10MG/ML) 2ML VL IV SCH ×2 (09:28→22:08)
[2023-07-29] MEDS: SODIUM CHLOR 0.9% PF (SALINE LOCK) 10ML VIAL/SYR IV SCH ×2 (09:29→22:08)
[2023-07-29] MEDS: ENOXAPARIN SOD 40 MG/0.4 ML SYRINGE SC SCH (09:29)
[2023-07-29] MEDS: CEFTRIAXONE SODIUM 2 GM in D5W 5% 100 ML IV SCH (09:29)
[2023-07-29] MEDS: LACTULOSE 20Gm/30ML SOLN PO SCH ×2 (10:00→22:00)
[2023-07-29] MEDS: NOREPINEPHRINE 8 MG/250ML KIT 250 ML IV SCH (22:00)
[2023-07-30] VITALS (32 sets, daily range): BP systolic 93–127; BP diastolic 51–78; PULSE 73–120; RESP 10–50; TEMP 97.9–98.4; O2SAT 92–99
[2023-07-30] MEDS: ALBUTEROL SULF 2.5 MG/0.5ML(0.5%) NEB SOLN NEB SCH ×5 (00:15→23:05)
[2023-07-30] MEDS: IPRATROPIUM BROM 0.5 MG/2.5ML INH SOL NEB SCH ×5 (00:15→23:05)
[2023-07-30 04:03] LABS: Basophils # (auto) 0.1 10 ^3/uL (0-0.2); Basophils % (auto) 0.5 % (0.0-2.0); Eosinophils # (auto) 0.1 10 ^3/uL (0-0.8); Eosinophils % (auto) 0.9 % (0.0-7.0); Hematocrit 40.3 % (41.0-53.0); Hemoglobin 13.5 g/dL (13.5-17.5); Lymphocytes # (auto) 1.1 10 ^3/uL (0.4-5.4); Lymphocytes % (auto) 10.9 % (10.0-50.0); Mean Corpuscular Hgb Conc. 33.4 g/dL (32.0-36.0); Mean Corpuscular Volume 92.8 fL (80.0-100.0); Monocytes # (auto) 1.2 10 ^3/uL (0-1.3); Monocytes % (auto) 11.3 % (0.0-12.0); Neutrophils % (auto) 76.4 % (37.0-80.0); Red Blood Cells 4.34 10^6/uL (4.5-5.90); Red Cell Distribution Width 12.7 % (11.8-14.3); White Blood Cell 10.5 10^3/uL (4.4-10.8)
[2023-07-30 04:12] LABS: Anion Gap 8 (5-15); Carbon Dioxide 28 mmol/L (20-30); Chloride 104 mmol/L (98-107); Potassium 3.9 mmol/L (3.5-5.1); Sodium 140 mmol/L (136-145)
[2023-07-30 04:13] LABS: Calcium 10.1 mg/dL (8.7-10.4)
[2023-07-30 04:18] LABS: BUN/Creatinine Ratio 32.3 (10.0-20.0); Blood Urea Nitrogen 21 mg/dL (9-23); Glucose 105 mg/dL (74-106)
[2023-07-30] MEDS: InsuLIN REG 1unit/0.01ml Soln (100units/ml) SC SCH ×4 (06:00→17:15)
[2023-07-30] MEDS: ACCU-CHEK COMFORT CURVE STRIP VI SCH ×4 (06:16→17:16)
[2023-07-30] MEDS: LACTULOSE 20Gm/30ML SOLN PO SCH ×2 (10:00→22:00)
[2023-07-30] MEDS: CEFTRIAXONE SODIUM 2 GM in D5W 5% 100 ML IV SCH (10:06)
[2023-07-30] MEDS: ENOXAPARIN SOD 40 MG/0.4 ML SYRINGE SC SCH (10:13)
[2023-07-30] MEDS: SODIUM CHLOR 0.9% PF (SALINE LOCK) 10ML VIAL/SYR IV SCH ×2 (10:13→22:09)
[2023-07-30] MEDS: FAMOTIDINE (10MG/ML) 2ML VL IV SCH ×2 (10:13→22:07)
[2023-07-30] MEDS: VANCOMYCIN 1GM/250ML 250 ML IV SCH (12:55)
[2023-07-30] MEDS: NOREPINEPHRINE 8 MG/250ML KIT 250 ML IV SCH (22:00)
[2023-07-30] MEDS: TIMOLOL MALEATE 0.5% EYE DROP EACHEYE SCH (22:08)
[2023-07-31] VITALS (34 sets, daily range): BP systolic 86–115; BP diastolic 41–72; PULSE 78–98; RESP 10–36; TEMP 97.5–98.4; O2SAT 89–100
[2023-07-31] MEDS: ACCU-CHEK COMFORT CURVE STRIP VI SCH ×5 (00:11→23:48)
[2023-07-31] MEDS: VANCOMYCIN 1GM/250ML 250 ML IV SCH ×2 (03:03→18:07)
[2023-07-31 04:13] LABS: Basophils # (auto) 0 10 ^3/uL (0-0.2); Basophils % (auto) 0.3 % (0.0-2.0); Eosinophils # (auto) 0.1 10 ^3/uL (0-0.8); Eosinophils % (auto) 0.7 % (0.0-7.0); Hemoglobin 13.4 g/dL (13.5-17.5); Lymphocytes # (auto) 1.1 10 ^3/uL (0.4-5.4); Lymphocytes % (auto) 10.9 % (10.0-50.0); Mean Corpuscular Hemoglobin 30.9 pg (28.0-32.0); Mean Corpuscular Hgb Conc. 33.4 g/dL (32.0-36.0); Mean Corpuscular Volume 92.7 fL (80.0-100.0); Monocytes % (auto) 9.2 % (0.0-12.0); Neutrophils # (auto) 8.3 10 ^3/uL (1.6-8.6); Neutrophils % (auto) 78.9 % (37.0-80.0); Red Blood Cells 4.32 10^6/uL (4.5-5.90); Red Cell Distribution Width 12.6 % (11.8-14.3); White Blood Cell 10.6 10^3/uL (4.4-10.8)
[2023-07-31 04:27] LABS: Anion Gap 7 (5-15); Carbon Dioxide 28 mmol/L (20-30); Chloride 105 mmol/L (98-107); Potassium 3.8 mmol/L (3.5-5.1); Sodium 140 mmol/L (136-145)
[2023-07-31 04:28] LABS: Calcium 10.2 mg/dL (8.7-10.4)
[2023-07-31 04:33] LABS: BUN/Creatinine Ratio 28.8 (10.0-20.0); Blood Urea Nitrogen 17 mg/dL (9-23); Glucose 117 mg/dL (74-106)
[2023-07-31] MEDS: InsuLIN REG 1unit/0.01ml Soln (100units/ml) SC SCH ×5 (05:48→23:48)
[2023-07-31] MEDS: ALBUTEROL SULF 2.5 MG/0.5ML(0.5%) NEB SOLN NEB SCH ×3 (06:25→18:42)
[2023-07-31] MEDS: IPRATROPIUM BROM 0.5 MG/2.5ML INH SOL NEB SCH ×3 (06:25→18:42)
[2023-07-31] MEDS: LACTULOSE 20Gm/30ML SOLN PO SCH ×2 (09:37→22:00)
[2023-07-31] MEDS: TIMOLOL MALEATE 0.5% EYE DROP EACHEYE SCH ×2 (09:37→22:41)
[2023-07-31] MEDS: FAMOTIDINE (10MG/ML) 2ML VL IV SCH ×2 (09:37→22:41)
[2023-07-31] MEDS: ENOXAPARIN SOD 40 MG/0.4 ML SYRINGE SC SCH (09:38)
[2023-07-31] MEDS: SODIUM CHLOR 0.9% PF (SALINE LOCK) 10ML VIAL/SYR IV SCH ×2 (09:38→22:43)
[2023-07-31] MEDS: CEFTRIAXONE SODIUM 2 GM in D5W 5% 100 ML IV SCH (11:12)
[2023-07-31] MEDS: ACETYLCYSTEINE 10 %(100MG/ML) SOL 4ML NEB SCH ×2 (12:36→18:42)
[2023-07-31] MEDS ORDERED: FLEET ENEMA(ADULT) 135 ML PR ONE (13:00)
[2023-07-31] MEDS ORDERED: BISACODYL 10 MG RECT SUPP PR ONE (13:00)
[2023-07-31] MEDS: NOREPINEPHRINE 8 MG/250ML KIT 250 ML IV SCH (22:00)
[2023-08-01] VITALS (29 sets, daily range): BP systolic 91–118; BP diastolic 47–73; PULSE 75–120; RESP 12–46; TEMP 97.5–101.3; O2SAT 87–100
[2023-08-01] MEDS: ALBUTEROL SULF 2.5 MG/0.5ML(0.5%) NEB SOLN NEB SCH ×5 (00:06→23:42)
[2023-08-01] MEDS: IPRATROPIUM BROM 0.5 MG/2.5ML INH SOL NEB SCH ×5 (00:06→23:42)
[2023-08-01] MEDS: ACETYLCYSTEINE 10 %(100MG/ML) SOL 4ML NEB SCH ×5 (00:06→23:42)
[2023-08-01 04:37] LABS: Basophils # (auto) 0 10 ^3/uL (0-0.2); Basophils % (auto) 0.3 % (0.0-2.0); Eosinophils # (auto) 0.1 10 ^3/uL (0-0.8); Eosinophils % (auto) 0.9 % (0.0-7.0); Hematocrit 38.4 % (41.0-53.0); Hemoglobin 13.1 g/dL (13.5-17.5); Lymphocytes # (auto) 1.3 10 ^3/uL (0.4-5.4); Lymphocytes % (auto) 13.7 % (10.0-50.0); Mean Corpuscular Hemoglobin 31.8 pg (28.0-32.0); Mean Corpuscular Hgb Conc. 34.1 g/dL (32.0-36.0); Mean Corpuscular Volume 93.4 fL (80.0-100.0); Monocytes # (auto) 0.8 10 ^3/uL (0-1.3); Monocytes % (auto) 7.9 % (0.0-12.0); Neutrophils # (auto) 7.5 10 ^3/uL (1.6-8.6); Neutrophils % (auto) 77.2 % (37.0-80.0); Nucleated Red Blood Cells % 0.1 %; Red Blood Cells 4.11 10^6/uL (4.5-5.90); Red Cell Distribution Width 12.8 % (11.8-14.3); White Blood Cell 9.8 10^3/uL (4.4-10.8)
[2023-08-01 04:58] LABS: Alanine Aminotransferase 27 U/L (7-40); Albumin 3.9 g/dL (3.2-4.8); Alkaline Phosphatase 88 U/L (46-116); Anion Gap 5 (5-15); Aspartate Aminotransferase 15 U/L (13-40); Blood Urea Nitrogen 13 mg/dL (9-23); Calcium 10.3 mg/dL (8.7-10.4); Carbon Dioxide 31 mmol/L (20-30); Chloride 103 mmol/L (98-107); Glucose 98 mg/dL (74-106); Potassium 3.9 mmol/L (3.5-5.1); Sodium 139 mmol/L (136-145)
[2023-08-01 04:59] LABS: Bilirubin, Total 0.4 mg/dL (0.2-1.0); Total Protein 7.1 g/dL (5.7-8.2)
[2023-08-01] MEDS: InsuLIN REG 1unit/0.01ml Soln (100units/ml) SC SCH ×3 (06:00→17:44)
[2023-08-01] MEDS: ACCU-CHEK COMFORT CURVE STRIP VI SCH ×3 (06:12→17:44)
[2023-08-01] MEDS: LACTULOSE 20Gm/30ML SOLN PO SCH (09:52)
[2023-08-01] MEDS: CEFTRIAXONE SODIUM 2 GM in D5W 5% 100 ML IV SCH (09:52)
[2023-08-01] MEDS: SODIUM CHLOR 0.9% PF (SALINE LOCK) 10ML VIAL/SYR IV SCH ×2 (09:53→22:25)
[2023-08-01] MEDS: TIMOLOL MALEATE 0.5% EYE DROP EACHEYE SCH ×2 (09:53→22:25)
[2023-08-01] MEDS: ENOXAPARIN SOD 40 MG/0.4 ML SYRINGE SC SCH (09:53)
[2023-08-01] MEDS: FAMOTIDINE (10MG/ML) 2ML VL IV SCH (09:53)
[2023-08-01] MEDS: PANTOPRAZOLE 40 MG/10 ML VIAL INJ IV SCH ×2 (10:00→22:25)
[2023-08-01] MEDS: NYSTATIN (MOUTH-THROAT) 500,000 UNITS/5 ML SUSP MT SCH ×3 (12:57→22:00)
[2023-08-01] MEDS ORDERED: levoFLOXacin 500MG 100 ML IV ONE (13:30)
[2023-08-01] MEDS ORDERED: CLINIMIX PER PHARMACY 0 ML IV SCH (15:15)
[2023-08-01] MEDS: AMINO ACID INFUSION IN D10W 1,000 ML IV NR (20:37)
[2023-08-02] VITALS (45 sets, daily range): BP systolic 87–120; BP diastolic 44–72; PULSE 68–96; RESP 8–35; TEMP 97.9–98.7; O2SAT 90–100
[2023-08-02 05:35] LABS: Alanine Aminotransferase 37 U/L (7-40); Albumin 3.6 g/dL (3.2-4.8); Alkaline Phosphatase 86 U/L (46-116); Anion Gap 3 (5-15); Aspartate Aminotransferase 19 U/L (13-40); BUN/Creatinine Ratio 23.3 (10.0-20.0); Bilirubin, Total 0.3 mg/dL (0.2-1.0); Blood Urea Nitrogen 17 mg/dL (9-23); Carbon Dioxide 32 mmol/L (20-30); Chloride 103 mmol/L (98-107); Glucose 127 mg/dL (74-106); Magnesium 1.8 mg/dL (1.6-2.6); Phosphorus 2.1 mg/dL (2.4-5.1); Potassium 3.5 mmol/L (3.5-5.1); Sodium 138 mmol/L (136-145); Total Protein 6.6 g/dL (5.7-8.2)
[2023-08-02] MEDS: InsuLIN REG 1unit/0.01ml Soln (100units/ml) SC SCH ×4 (06:00→17:26)
[2023-08-02] MEDS: NYSTATIN (MOUTH-THROAT) 500,000 UNITS/5 ML SUSP MT SCH ×4 (06:00→22:16)
[2023-08-02] MEDS: ACCU-CHEK COMFORT CURVE STRIP VI SCH ×4 (06:08→17:26)
[2023-08-02] MEDS: ALBUTEROL SULF 2.5 MG/0.5ML(0.5%) NEB SOLN NEB SCH ×3 (06:47→18:16)
[2023-08-02] MEDS: ACETYLCYSTEINE 10 %(100MG/ML) SOL 4ML NEB SCH ×3 (06:47→18:17)
[2023-08-02] MEDS: IPRATROPIUM BROM 0.5 MG/2.5ML INH SOL NEB SCH ×3 (06:47→18:16)
[2023-08-02] MEDS: PANTOPRAZOLE 40 MG/10 ML VIAL INJ IV SCH ×2 (09:16→22:16)
[2023-08-02] MEDS: levoFLOXacin 500MG 100 ML IV SCH (09:16)
[2023-08-02] MEDS: SODIUM CHLOR 0.9% PF (SALINE LOCK) 10ML VIAL/SYR IV SCH ×2 (09:17→22:17)
[2023-08-02] MEDS: TIMOLOL MALEATE 0.5% EYE DROP EACHEYE SCH ×2 (09:17→22:20)
[2023-08-02] MEDS: ENOXAPARIN SOD 40 MG/0.4 ML SYRINGE SC SCH (09:17)
[2023-08-02] MEDS ORDERED: POTASSIUM PHOSPHATE 22 MEQ in SODIUM CHL 0.9% 100 ML IV ONE (12:00)
[2023-08-02] MEDS: AMINO ACID INFUSION IN D10W 1,000 ML IV NR (20:24)
[2023-08-02] MEDS ORDERED: ceFAZolin 1GM/50ML 50 ML IV ONE (20:30)
[2023-08-03] VITALS (38 sets, daily range): BP systolic 84–113; BP diastolic 44–61; PULSE 63–96; RESP 11–29; TEMP 97.5–99.3; O2SAT 90–100
[2023-08-03] MEDS: ACETYLCYSTEINE 10 %(100MG/ML) SOL 4ML NEB SCH ×4 (00:09→18:16)
[2023-08-03] MEDS: ALBUTEROL SULF 2.5 MG/0.5ML(0.5%) NEB SOLN NEB SCH ×4 (00:09→18:15)
[2023-08-03] MEDS: IPRATROPIUM BROM 0.5 MG/2.5ML INH SOL NEB SCH ×4 (00:09→18:15)
[2023-08-03] MEDS: ACCU-CHEK COMFORT CURVE STRIP VI SCH ×4 (00:25→18:03)
[2023-08-03] MEDS: InsuLIN REG 1unit/0.01ml Soln (100units/ml) SC SCH ×4 (00:30→18:00)
[2023-08-03 05:35] LABS: INR 1.09 (0.9-1.15); Partial Thromboplastin Time 29.6 SEC (24.5-34.5); Prothrombin Time 11.4 sec (9.3-11.8)
[2023-08-03 05:37] LABS: Basophils # (auto) 0 10 ^3/uL (0-0.2); Basophils % (auto) 0.4 % (0.0-2.0); Eosinophils # (auto) 0.1 10 ^3/uL (0-0.8); Eosinophils % (auto) 1.4 % (0.0-7.0); Hematocrit 35.8 % (41.0-53.0); Lymphocytes # (auto) 1.6 10 ^3/uL (0.4-5.4); Lymphocytes % (auto) 26.4 % (10.0-50.0); Mean Corpuscular Hemoglobin 30.8 pg (28.0-32.0); Mean Corpuscular Hgb Conc. 33.5 g/dL (32.0-36.0); Mean Corpuscular Volume 91.9 fL (80.0-100.0); Monocytes # (auto) 0.6 10 ^3/uL (0-1.3); Monocytes % (auto) 10.2 % (0.0-12.0); Neutrophils # (auto) 3.7 10 ^3/uL (1.6-8.6); Neutrophils % (auto) 61.6 % (37.0-80.0); Red Cell Distribution Width 12.5 % (11.8-14.3); White Blood Cell 6.1 10^3/uL (4.4-10.8)
[2023-08-03 05:38] LABS: Alanine Aminotransferase 34 U/L (7-40); Albumin 3.5 g/dL (3.2-4.8); Alkaline Phosphatase 69 U/L (46-116); Anion Gap 5 (5-15); Aspartate Aminotransferase 17 U/L (13-40); BUN/Creatinine Ratio 23.8 (10.0-20.0); Blood Urea Nitrogen 15 mg/dL (9-23); Calcium 9.9 mg/dL (8.5-10.1); Carbon Dioxide 31 mmol/L (20-30); Chloride 102 mmol/L (98-107); Glucose 140 mg/dL (74-106); Potassium 3.3 mmol/L (3.5-5.1); Sodium 138 mmol/L (136-145)
[2023-08-03 05:40] LABS: Bilirubin, Total 0.3 mg/dL (0.2-1.0); Phosphorus 2.2 mg/dL (2.4-5.1); Total Protein 6.5 g/dL (5.7-8.2)
[2023-08-03] MEDS: NYSTATIN (MOUTH-THROAT) 500,000 UNITS/5 ML SUSP MT SCH ×4 (06:12→21:57)
[2023-08-03 06:39] LABS: Magnesium 1.9 mg/dL (1.6-2.6)
[2023-08-03] MEDS: PANTOPRAZOLE 40 MG/10 ML VIAL INJ IV SCH ×2 (08:20→21:56)
[2023-08-03] MEDS: TIMOLOL MALEATE 0.5% EYE DROP EACHEYE SCH ×2 (08:21→22:05)
[2023-08-03] MEDS: levoFLOXacin 500MG 100 ML IV SCH (08:21)
[2023-08-03] MEDS: SODIUM CHLOR 0.9% PF (SALINE LOCK) 10ML VIAL/SYR IV SCH ×2 (08:21→21:57)
[2023-08-03] MEDS ORDERED: POTASSIUM PHOSPHATE 44 MEQ in D5W 5% 250 ML IV ONE (09:45)
[2023-08-03] MEDS: AMINO ACID INFUSION IN D10W 1,000 ML IV NR (19:52)
[2023-08-04] VITALS (39 sets, daily range): BP systolic 88–118; BP diastolic 43–71; PULSE 68–107; RESP 13–31; TEMP 97.9–99.4; O2SAT 90–98
[2023-08-04] MEDS: IPRATROPIUM BROM 0.5 MG/2.5ML INH SOL NEB SCH ×5 (00:01→23:49)
[2023-08-04] MEDS: ALBUTEROL SULF 2.5 MG/0.5ML(0.5%) NEB SOLN NEB SCH ×5 (00:01→23:49)
[2023-08-04] MEDS: ACETYLCYSTEINE 10 %(100MG/ML) SOL 4ML NEB SCH ×5 (00:01→23:50)
[2023-08-04] MEDS: ACCU-CHEK COMFORT CURVE STRIP VI SCH ×4 (00:38→18:00)
[2023-08-04] MEDS: InsuLIN REG 1unit/0.01ml Soln (100units/ml) SC SCH ×4 (00:42→18:00)
[2023-08-04] MEDS: NYSTATIN (MOUTH-THROAT) 500,000 UNITS/5 ML SUSP MT SCH ×4 (04:56→22:13)
[2023-08-04 05:22] LABS: Alanine Aminotransferase 44 U/L (7-40); Albumin 3.6 g/dL (3.2-4.8); Alkaline Phosphatase 77 U/L (46-116); Anion Gap 3 (5-15); Aspartate Aminotransferase 37 U/L (13-40); BUN/Creatinine Ratio 16.7 (10.0-20.0); Blood Urea Nitrogen 10 mg/dL (9-23); Calcium 9.9 mg/dL (8.7-10.4); Carbon Dioxide 30 mmol/L (20-30); Chloride 103 mmol/L (98-107); Magnesium 1.7 mg/dL (1.6-2.6); Potassium 3.6 mmol/L (3.5-5.1); Sodium 136 mmol/L (136-145)
[2023-08-04 05:23] LABS: Basophils # (auto) 0 10 ^3/uL (0-0.2); Basophils % (auto) 0.3 % (0.0-2.0); Bilirubin, Total 0.3 mg/dL (0.2-1.0); Eosinophils # (auto) 0.1 10 ^3/uL (0-0.8); Eosinophils % (auto) 1.6 % (0.0-7.0); Hematocrit 35.1 % (41.0-53.0); Hemoglobin 11.7 g/dL (13.5-17.5); Lymphocytes # (auto) 1.4 10 ^3/uL (0.4-5.4); Lymphocytes % (auto) 20.8 % (10.0-50.0); Mean Corpuscular Hemoglobin 30.9 pg (28.0-32.0); Mean Corpuscular Hgb Conc. 33.4 g/dL (32.0-36.0); Mean Corpuscular Volume 92.4 fL (80.0-100.0); Monocytes # (auto) 0.6 10 ^3/uL (0-1.3); Monocytes % (auto) 9.3 % (0.0-12.0); Neutrophils # (auto) 4.5 10 ^3/uL (1.6-8.6); Nucleated Red Blood Cells % 0.1 %; Phosphorus 2.5 mg/dL (2.4-5.1); Red Blood Cells 3.79 10^6/uL (4.5-5.90); Red Cell Distribution Width 12.4 % (11.8-14.3); Total Protein 6.6 g/dL (5.7-8.2); White Blood Cell 6.6 10^3/uL (4.4-10.8)
[2023-08-04 05:47] LABS: Glucose 145 mg/dL (74-106)
[2023-08-04] MEDS: levoFLOXacin 500MG 100 ML IV SCH (09:34)
[2023-08-04] MEDS: SODIUM CHLOR 0.9% PF (SALINE LOCK) 10ML VIAL/SYR IV SCH ×2 (09:34→22:12)
[2023-08-04] MEDS: PANTOPRAZOLE 40 MG/10 ML VIAL INJ IV SCH ×2 (09:34→22:12)
[2023-08-04] MEDS: TIMOLOL MALEATE 0.5% EYE DROP EACHEYE SCH ×2 (09:37→21:08)
[2023-08-04 10:15] LABS: Base Excess 1.6 mmol/L (-2.0-2.0)
[2023-08-04] MEDS ORDERED: FUROSEMIDE 20 MG/2 ML VIAL IV ONE (10:45)
[2023-08-04] MEDS ORDERED: MEROPENEM 1GM IVPB 100 ML IV ONE (10:45)
[2023-08-04] MEDS ORDERED: POTASSIUM CHLORIDE 40 MEQ, LIDOCAINE 1% (LOCAL ANESTH.) 4 ML in SODIUM CHL 0.9% 250 ML IV ONE (10:45)
[2023-08-04] MEDS ORDERED: IOHEXOL 350 MG/ML 100ML IJ ONE (13:47)
[2023-08-04] MEDS: MEROPENEM 1GM IVPB 100 ML IV SCH (20:55)
[2023-08-04] MEDS: AMINO ACID INFUSION IN D10W 1,000 ML IV NR (20:58)
[2023-08-05] VITALS (28 sets, daily range): BP systolic 86–117; BP diastolic 50–68; PULSE 70–116; RESP 14–31; TEMP 97.5–98.7; O2SAT 87–100
[2023-08-05] MEDS: ACCU-CHEK COMFORT CURVE STRIP VI SCH ×4 (00:10→16:21)
[2023-08-05] MEDS: InsuLIN REG 1unit/0.01ml Soln (100units/ml) SC SCH ×4 (00:10→17:56)
[2023-08-05] MEDS: MEROPENEM 1GM IVPB 100 ML IV SCH ×3 (04:11→21:56)
[2023-08-05 05:28] LABS: Basophils # (auto) 0 10 ^3/uL (0-0.2); Basophils % (auto) 0.4 % (0.0-2.0); Eosinophils # (auto) 0.1 10 ^3/uL (0-0.8); Eosinophils % (auto) 1.2 % (0.0-7.0); Hemoglobin 11.9 g/dL (13.5-17.5); Lymphocytes # (auto) 1.2 10 ^3/uL (0.4-5.4); Lymphocytes % (auto) 18.2 % (10.0-50.0); Mean Corpuscular Hemoglobin 30.4 pg (28.0-32.0); Monocytes # (auto) 0.6 10 ^3/uL (0-1.3); Monocytes % (auto) 8.5 % (0.0-12.0); Neutrophils # (auto) 4.9 10 ^3/uL (1.6-8.6); Neutrophils % (auto) 71.7 % (37.0-80.0); Red Blood Cells 3.92 10^6/uL (4.5-5.90); Red Cell Distribution Width 12.4 % (11.8-14.3); White Blood Cell 6.8 10^3/uL (4.4-10.8)
[2023-08-05 05:34] LABS: Alanine Aminotransferase 65 U/L (7-40); Albumin 3.8 g/dL (3.2-4.8); Alkaline Phosphatase 86 U/L (46-116); Anion Gap 2 (5-15); Aspartate Aminotransferase 41 U/L (13-40); BUN/Creatinine Ratio 18.3 (10.0-20.0); Bilirubin, Total 0.3 mg/dL (0.2-1.0); Blood Urea Nitrogen 11 mg/dL (9-23); Calcium 9.9 mg/dL (8.7-10.4); Carbon Dioxide 31 mmol/L (20-30); Chloride 102 mmol/L (98-107); Glucose 144 mg/dL (74-106); Magnesium 1.7 mg/dL (1.6-2.6); Phosphorus 1.5 mg/dL (2.4-5.1); Potassium 3.7 mmol/L (3.5-5.1); Sodium 135 mmol/L (136-145)
[2023-08-05 05:35] LABS: Total Protein 6.9 g/dL (5.7-8.2)
[2023-08-05] MEDS: NYSTATIN (MOUTH-THROAT) 500,000 UNITS/5 ML SUSP MT SCH ×4 (06:00→22:18)
[2023-08-05] MEDS: IPRATROPIUM BROM 0.5 MG/2.5ML INH SOL NEB SCH ×4 (07:01→23:57)
[2023-08-05] MEDS: ALBUTEROL SULF 2.5 MG/0.5ML(0.5%) NEB SOLN NEB SCH ×4 (07:01→23:58)
[2023-08-05] MEDS: ACETYLCYSTEINE 10 %(100MG/ML) SOL 4ML NEB SCH ×4 (07:02→23:58)
[2023-08-05] MEDS: levoFLOXacin 500MG 100 ML IV SCH (08:10)
[2023-08-05] MEDS: PANTOPRAZOLE 40 MG/10 ML VIAL INJ IV SCH ×2 (08:10→22:18)
[2023-08-05] MEDS: SODIUM CHLOR 0.9% PF (SALINE LOCK) 10ML VIAL/SYR IV SCH ×2 (08:11→22:17)
[2023-08-05] MEDS: TIMOLOL MALEATE 0.5% EYE DROP EACHEYE SCH ×2 (08:12→22:18)
[2023-08-05] MEDS ORDERED: ALBUTEROL MEDNEB 2.5 mg/3ml NEB ONE ×3 (11:10→23:44)
[2023-08-05] MEDS ORDERED: PROPOFOL 10 MG/ML 20 ML IV ONE (12:42)
[2023-08-05] MEDS ORDERED: ceFAZolin 1GM/50ML 100 ML IV ONE (12:43)
[2023-08-05] MEDS ORDERED: POTASSIUM PHOSPHATE 44 MEQ in D5W 5% 250 ML IV ONE (14:30)
[2023-08-05] MEDS: AMINO ACID INFUSION IN D10W 1,000 ML IV NR (22:15)
[2023-08-06] VITALS (29 sets, daily range): BP systolic 92–109; BP diastolic 50–68; PULSE 83–102; RESP 13–45; TEMP 97.5–98.5; O2SAT 87–100
[2023-08-06] MEDS: MEROPENEM 1GM IVPB 100 ML IV SCH ×3 (05:00→20:17)
[2023-08-06 05:51] LABS: Basophils # (auto) 0 10 ^3/uL (0-0.2); Basophils % (auto) 0.4 % (0.0-2.0); Eosinophils # (auto) 0.1 10 ^3/uL (0-0.8); Eosinophils % (auto) 0.8 % (0.0-7.0); Hematocrit 36.9 % (41.0-53.0); Hemoglobin 12.3 g/dL (13.5-17.5); Lymphocytes # (auto) 1.3 10 ^3/uL (0.4-5.4); Lymphocytes % (auto) 13.4 % (10.0-50.0); Mean Corpuscular Hemoglobin 30.5 pg (28.0-32.0); Mean Corpuscular Hgb Conc. 33.4 g/dL (32.0-36.0); Mean Corpuscular Volume 91.3 fL (80.0-100.0); Monocytes # (auto) 0.7 10 ^3/uL (0-1.3); Monocytes % (auto) 6.6 % (0.0-12.0); Neutrophils # (auto) 7.9 10 ^3/uL (1.6-8.6); Neutrophils % (auto) 78.8 % (37.0-80.0); Red Blood Cells 4.04 10^6/uL (4.5-5.90); Red Cell Distribution Width 12.6 % (11.8-14.3)
[2023-08-06] MEDS ORDERED: ALBUTEROL MEDNEB 2.5 mg/3ml NEB ONE ×4 (05:59→23:33)
[2023-08-06] MEDS: Ensure Enlive Vanilla 8oz Bottle PO SCH ×4 (06:00→09:00)
[2023-08-06 06:03] LABS: Alanine Aminotransferase 57 U/L (7-40); Albumin 3.8 g/dL (3.2-4.8); Alkaline Phosphatase 83 U/L (46-116); Anion Gap 4 (5-15); Aspartate Aminotransferase 31 U/L (13-40); BUN/Creatinine Ratio 19.6 (10.0-20.0); Bilirubin, Total 0.3 mg/dL (0.2-1.0); Blood Urea Nitrogen 11 mg/dL (9-23); Calcium 10.2 mg/dL (8.5-10.1); Carbon Dioxide 31 mmol/L (20-30); Chloride 101 mmol/L (98-107); Glucose 140 mg/dL (74-106); Phosphorus 1.6 mg/dL (2.4-5.1); Potassium 3.7 mmol/L (3.5-5.1); Sodium 136 mmol/L (136-145)
[2023-08-06] MEDS: NYSTATIN (MOUTH-THROAT) 500,000 UNITS/5 ML SUSP MT SCH ×4 (06:05→21:59)
[2023-08-06] MEDS: ACCU-CHEK COMFORT CURVE STRIP VI SCH ×5 (06:06→22:00)
[2023-08-06] MEDS: InsuLIN REG 1unit/0.01ml Soln (100units/ml) SC SCH ×5 (06:06→22:21)
[2023-08-06] MEDS: ALBUTEROL SULF 2.5 MG/0.5ML(0.5%) NEB SOLN NEB SCH ×4 (06:42→23:40)
[2023-08-06] MEDS: IPRATROPIUM BROM 0.5 MG/2.5ML INH SOL NEB SCH ×4 (06:42→23:40)
[2023-08-06] MEDS: ACETYLCYSTEINE 10 %(100MG/ML) SOL 4ML NEB SCH ×4 (06:42→23:40)
[2023-08-06 07:07] LABS: Magnesium 1.6 mg/dL (1.6-2.6)
[2023-08-06] MEDS: PANTOPRAZOLE 40 MG/10 ML VIAL INJ IV SCH ×2 (08:00→22:00)
[2023-08-06] MEDS: levoFLOXacin 500MG 100 ML IV SCH (08:00)
[2023-08-06] MEDS: SODIUM CHLOR 0.9% PF (SALINE LOCK) 10ML VIAL/SYR IV SCH ×2 (08:01→22:00)
[2023-08-06] MEDS: TIMOLOL MALEATE 0.5% EYE DROP EACHEYE SCH ×2 (08:01→22:22)
[2023-08-06] MEDS ORDERED: FUROSEMIDE 40 MG/4 ML VIAL IV ONE (08:15)
[2023-08-06] MEDS ORDERED: POTASSIUM PHOSPHATE 44 MEQ in D5W 5% 250 ML IV ONE (12:00)
[2023-08-06] MEDS: Glucerna Carbsteady SHAKE Stawberry 8oz PEG SCH ×4 (12:00→22:03)
[2023-08-06] MEDS: AMINO ACID INFUSION IN D10W 1,000 ML IV NR (20:17)
[2023-08-07] VITALS (33 sets, daily range): BP systolic 77–99; BP diastolic 46–61; PULSE 78–109; RESP 11–36; TEMP 97.7–98.4; O2SAT 92–100
[2023-08-07] MEDS: Glucerna Carbsteady SHAKE Stawberry 8oz PEG SCH ×6 (03:00→18:35)
[2023-08-07] MEDS: MEROPENEM 1GM IVPB 100 ML IV SCH ×3 (04:29→20:35)
[2023-08-07] MEDS ORDERED: ALBUTEROL MEDNEB 2.5 mg/3ml NEB ONE (05:40)
[2023-08-07 05:51] LABS: Basophils # (auto) 0 10 ^3/uL (0-0.2); Basophils % (auto) 0.2 % (0.0-2.0); Eosinophils # (auto) 0.1 10 ^3/uL (0-0.8); Eosinophils % (auto) 1.5 % (0.0-7.0); Hemoglobin 13.1 g/dL (13.5-17.5); Lymphocytes # (auto) 1.6 10 ^3/uL (0.4-5.4); Lymphocytes % (auto) 19.5 % (10.0-50.0); Mean Corpuscular Hemoglobin 31.3 pg (28.0-32.0); Mean Corpuscular Hgb Conc. 34.3 g/dL (32.0-36.0); Mean Corpuscular Volume 91.3 fL (80.0-100.0); Monocytes # (auto) 0.7 10 ^3/uL (0-1.3); Monocytes % (auto) 8.5 % (0.0-12.0); Neutrophils # (auto) 5.6 10 ^3/uL (1.6-8.6); Neutrophils % (auto) 70.3 % (37.0-80.0); Nucleated Red Blood Cells % 0.1 %; Red Blood Cells 4.17 10^6/uL (4.5-5.90); Red Cell Distribution Width 12.6 % (11.8-14.3)
[2023-08-07] MEDS: ACCU-CHEK COMFORT CURVE STRIP VI SCH ×3 (05:58→18:34)
[2023-08-07] MEDS: NYSTATIN (MOUTH-THROAT) 500,000 UNITS/5 ML SUSP MT SCH ×4 (05:58→21:49)
[2023-08-07 06:05] LABS: Alanine Aminotransferase 75 U/L (7-40); Alkaline Phosphatase 101 U/L (46-116); Anion Gap 3 (5-15); BUN/Creatinine Ratio 25.4 (10.0-20.0); Blood Urea Nitrogen 16 mg/dL (9-23); Calcium 10.6 mg/dL (8.7-10.4); Carbon Dioxide 32 mmol/L (20-30); Chloride 99 mmol/L (98-107); GFR African American 170 mL/min; GFR Non-African American 141 mL/min; Glucose 142 mg/dL (74-106); Magnesium 1.8 mg/dL (1.6-2.6); Potassium 3.7 mmol/L (3.5-5.1); Sodium 134 mmol/L (136-145)
[2023-08-07 06:06] LABS: Aspartate Aminotransferase 41 U/L (13-40); Phosphorus 2.8 mg/dL (2.4-5.1)
[2023-08-07 06:07] LABS: Bilirubin, Total 0.2 mg/dL (0.2-1.0); Total Protein 7.3 g/dL (5.7-8.2)
[2023-08-07] MEDS: ALBUTEROL SULF 2.5 MG/0.5ML(0.5%) NEB SOLN NEB SCH (06:11)
[2023-08-07] MEDS: IPRATROPIUM BROM 0.5 MG/2.5ML INH SOL NEB SCH ×3 (06:11→18:29)
[2023-08-07] MEDS: ACETYLCYSTEINE 10 %(100MG/ML) SOL 4ML NEB SCH ×3 (06:11→18:29)
[2023-08-07] MEDS: InsuLIN REG 1unit/0.01ml Soln (100units/ml) SC SCH ×3 (06:15→18:00)
[2023-08-07] MEDS: levoFLOXacin 500MG 100 ML IV SCH (10:44)
[2023-08-07] MEDS: PANTOPRAZOLE 40 MG/10 ML VIAL INJ IV SCH ×2 (10:44→21:50)
[2023-08-07] MEDS: SODIUM CHLOR 0.9% PF (SALINE LOCK) 10ML VIAL/SYR IV SCH ×2 (10:45→21:50)
[2023-08-07] MEDS: TIMOLOL MALEATE 0.5% EYE DROP EACHEYE SCH ×2 (10:46→21:56)
[2023-08-07] MEDS ORDERED: PHENYLEPHRINE HCL 1 % NASAL SPRAY 15ML PRN (13:00)
[2023-08-07] MEDS: ALBUTEROL MEDNEB 2.5 mg/3ml NEB NEB SCH (18:29)
[2023-08-07] MEDS ORDERED: AMINO ACID INFUSION IN D10W 1,000 ML IV NR (20:00)
[2023-08-08] VITALS (33 sets, daily range): BP systolic 83–100; BP diastolic 46–87; PULSE 76–108; RESP 12–37; TEMP 97.5–98.2; O2SAT 88–100
[2023-08-08] MEDS: IPRATROPIUM BROM 0.5 MG/2.5ML INH SOL NEB SCH ×4 (00:07→18:15)
[2023-08-08] MEDS: ACETYLCYSTEINE 10 %(100MG/ML) SOL 4ML NEB SCH ×4 (00:07→18:16)
[2023-08-08] MEDS: ALBUTEROL MEDNEB 2.5 mg/3ml NEB NEB SCH ×4 (00:07→18:15)
[2023-08-08] MEDS: Glucerna Carbsteady SHAKE Stawberry 8oz PEG SCH ×7 (00:21→18:00)
[2023-08-08] MEDS: ACCU-CHEK COMFORT CURVE STRIP VI SCH ×4 (00:21→18:09)
[2023-08-08] MEDS: InsuLIN REG 1unit/0.01ml Soln (100units/ml) SC SCH ×4 (00:28→18:00)
[2023-08-08] MEDS: MEROPENEM 1GM IVPB 100 ML IV SCH ×3 (04:15→19:46)
[2023-08-08 05:54] LABS: Basophils # (auto) 0 10 ^3/uL (0-0.2); Basophils % (auto) 0.5 % (0.0-2.0); Eosinophils # (auto) 0.1 10 ^3/uL (0-0.8); Eosinophils % (auto) 1.9 % (0.0-7.0); Hematocrit 36.2 % (41.0-53.0); Hemoglobin 12.2 g/dL (13.5-17.5); Lymphocytes # (auto) 1.5 10 ^3/uL (0.4-5.4); Lymphocytes % (auto) 28.8 % (10.0-50.0); Mean Corpuscular Hemoglobin 30.9 pg (28.0-32.0); Mean Corpuscular Hgb Conc. 33.6 g/dL (32.0-36.0); Mean Corpuscular Volume 91.9 fL (80.0-100.0); Monocytes # (auto) 0.7 10 ^3/uL (0-1.3); Monocytes % (auto) 12.8 % (0.0-12.0); Red Blood Cells 3.94 10^6/uL (4.5-5.90); Red Cell Distribution Width 12.6 % (11.8-14.3); White Blood Cell 5.3 10^3/uL (4.4-10.8)
[2023-08-08] MEDS: NYSTATIN (MOUTH-THROAT) 500,000 UNITS/5 ML SUSP MT SCH ×4 (06:00→21:38)
[2023-08-08 06:32] LABS: Alanine Aminotransferase 58 U/L (7-40); Albumin 3.6 g/dL (3.2-4.8); Alkaline Phosphatase 92 U/L (46-116); Anion Gap 4 (5-15); Aspartate Aminotransferase 28 U/L (13-40); BUN/Creatinine Ratio 22.7 (10.0-20.0); Bilirubin, Total 0.2 mg/dL (0.2-1.0); Blood Urea Nitrogen 15 mg/dL (9-23); Calcium 10.5 mg/dL (8.7-10.4); Carbon Dioxide 32 mmol/L (20-30); Chloride 98 mmol/L (98-107); Glucose 141 mg/dL (74-106); Magnesium 1.9 mg/dL (1.6-2.6); Potassium 4.2 mmol/L (3.5-5.1); Sodium 134 mmol/L (136-145); Total Protein 6.7 g/dL (5.7-8.2)
[2023-08-08] MEDS: TIMOLOL MALEATE 0.5% EYE DROP EACHEYE SCH ×2 (10:23→21:39)
[2023-08-08] MEDS: SODIUM CHLOR 0.9% PF (SALINE LOCK) 10ML VIAL/SYR IV SCH ×2 (10:24→21:39)
[2023-08-08] MEDS: levoFLOXacin 500MG 100 ML IV SCH (10:24)
[2023-08-08] MEDS: PANTOPRAZOLE 40 MG/10 ML VIAL INJ IV SCH (10:24)
[2023-08-08] MEDS ORDERED: LACTULOSE 20Gm/30ML SOLN PO ONE (12:45)
[2023-08-08] MEDS ORDERED: FOLI-119 PO (14:01)
[2023-08-08] MEDS ORDERED: PRAV20TA3 PO (14:01)
[2023-08-08] MEDS ORDERED: LEVE500T40 PO (14:02)
[2023-08-08] MEDS ORDERED: MAGN400T40 PO ×2 (14:03→14:14)
[2023-08-08] MEDS ORDERED: LINA1CAP2 PO (14:05)
[2023-08-08] MEDS ORDERED: HYDR-4798 PO (14:14)
[2023-08-08] MEDS ORDERED: ZINC1TAB PO (14:14)
[2023-08-08] MEDS ORDERED: LIDO1.8P EX (14:14)
[2023-08-08] MEDS ORDERED: [UNRECOGNIZED DRUG - CODE] TOP (14:14)
[2023-08-08] MEDS ORDERED: FLUT0.05 NAS (14:14)
[2023-08-08] MEDS ORDERED: ALBU2TAB11 PO (14:14)
[2023-08-08] MEDS: LACTULOSE 20Gm/30ML SOLN PO SCH (18:00)
[2023-08-08] MEDS: levETIRAcetam 500 MG/5ML ORAL SOLN UD GT SCH (21:40)
[2023-08-09] VITALS (30 sets, daily range): BP systolic 82–105; BP diastolic 46–61; PULSE 79–91; RESP 12–30; TEMP 98.4–99.2; O2SAT 93–99
[2023-08-09] MEDS: IPRATROPIUM BROM 0.5 MG/2.5ML INH SOL NEB SCH ×3 (00:30→11:21)
[2023-08-09] MEDS: ACETYLCYSTEINE 10 %(100MG/ML) SOL 4ML NEB SCH ×3 (00:30→11:22)
[2023-08-09] MEDS: ALBUTEROL MEDNEB 2.5 mg/3ml NEB NEB SCH ×3 (00:31→11:21)
[2023-08-09] MEDS: Glucerna Carbsteady SHAKE Stawberry 8oz PEG SCH ×5 (03:02→12:05)
[2023-08-09] MEDS: MEROPENEM 1GM IVPB 100 ML IV SCH ×2 (03:40→12:00)
[2023-08-09] MEDS: NYSTATIN (MOUTH-THROAT) 500,000 UNITS/5 ML SUSP MT SCH ×2 (05:31→12:00)
[2023-08-09] MEDS: InsuLIN REG 1unit/0.01ml Soln (100units/ml) SC SCH ×3 (06:00→12:00)
[2023-08-09] MEDS: ACCU-CHEK COMFORT CURVE STRIP VI SCH ×3 (06:06→12:05)
[2023-08-09] MEDS: LACTULOSE 20Gm/30ML SOLN PO SCH ×3 (06:06→12:00)
[2023-08-09] MEDS: SODIUM CHLOR 0.9% PF (SALINE LOCK) 10ML VIAL/SYR IV SCH (08:57)
[2023-08-09] MEDS: levETIRAcetam 500 MG/5ML ORAL SOLN UD GT SCH (08:57)
[2023-08-09] MEDS: levoFLOXacin 500MG 100 ML IV SCH (08:57)
[2023-08-09] MEDS: TIMOLOL MALEATE 0.5% EYE DROP EACHEYE SCH (08:57)
[2023-08-09] MEDS ORDERED: PANTOPRAZOLE 40 MG TAB PO SCH (10:00)
[2023-08-09] MEDS ORDERED: LEVO500T91 PO (10:49)
[2023-08-09] MEDS ORDERED: LEVE100S4 PO (10:49)
[2023-08-09] MEDS ORDERED: LACT10SO3 PO (10:49)
== END 2023-08-09 13:37 | disposition home health service (06) | DRG 870 ==
LOC: ER 19:47 → EDBD 19:47 → TELE 23:53 → ICU WEST 07-17 04:05 → DOU IN ICU 08-01 17:10
PROVIDERS: ADMIT Nurse Practitioner Family; ATTEND Internal Medicine
PROC: 5A1955Z Respiratory Ventilation, Greater than 96 Consecutive Hours (ICD-10-PCS; principal; 2023-07-17)
PROC: 0BH17EZ Insertion of Endotracheal Airway into Trachea, Via Natural or Artificial Opening (ICD-10-PCS; 2023-07-17)
PROC: 02HV33Z Insertion of Infusion Device into Superior Vena Cava, Percutaneous Approach (ICD-10-PCS; 2023-07-18)
PROC: B548ZZA Ultrasonography of Superior Vena Cava, Guidance (ICD-10-PCS; 2023-07-18)
PROC: 0B968ZZ Drainage of Right Lower Lobe Bronchus, Via Natural or Artificial Opening Endoscopic (ICD-10-PCS; 2023-07-24)
PROC: 5A09357 Assistance with Respiratory Ventilation, Less than 24 Consecutive Hours, Continuous Positive Airway Pressure (ICD-10-PCS; 2023-07-27)
PROC: 5A09357 Assistance with Respiratory Ventilation, Less than 24 Consecutive Hours, Continuous Positive Airway Pressure (ICD-10-PCS; 2023-07-29)
PROC: 5A09357 Assistance with Respiratory Ventilation, Less than 24 Consecutive Hours, Continuous Positive Airway Pressure (ICD-10-PCS; 2023-07-30)
PROC: 5A09357 Assistance with Respiratory Ventilation, Less than 24 Consecutive Hours, Continuous Positive Airway Pressure (ICD-10-PCS; 2023-07-31)
PROC: 5A09357 Assistance with Respiratory Ventilation, Less than 24 Consecutive Hours, Continuous Positive Airway Pressure (ICD-10-PCS; 2023-08-01)
PROC: 5A09357 Assistance with Respiratory Ventilation, Less than 24 Consecutive Hours, Continuous Positive Airway Pressure (ICD-10-PCS; 2023-08-02)
PROC: 5A09357 Assistance with Respiratory Ventilation, Less than 24 Consecutive Hours, Continuous Positive Airway Pressure (ICD-10-PCS; 2023-08-03)
PROC: 5A09357 Assistance with Respiratory Ventilation, Less than 24 Consecutive Hours, Continuous Positive Airway Pressure (ICD-10-PCS; 2023-08-04)
PROC: 5A09357 Assistance with Respiratory Ventilation, Less than 24 Consecutive Hours, Continuous Positive Airway Pressure (ICD-10-PCS; 2023-08-05)
PROC: 0DH63UZ Insertion of Feeding Device into Stomach, Percutaneous Approach (ICD-10-PCS; 2023-08-05)
PROC: 0DH63UZ Insertion of Feeding Device into Stomach, Percutaneous Approach (ICD-10-PCS; 2023-08-05)
PROC: 5A09357 Assistance with Respiratory Ventilation, Less than 24 Consecutive Hours, Continuous Positive Airway Pressure (ICD-10-PCS; 2023-08-06)
PROC: 5A09357 Assistance with Respiratory Ventilation, Less than 24 Consecutive Hours, Continuous Positive Airway Pressure (ICD-10-PCS; 2023-08-07)
PROC: 5A09357 Assistance with Respiratory Ventilation, Less than 24 Consecutive Hours, Continuous Positive Airway Pressure (ICD-10-PCS; 2023-08-08)
PROC: 5A09357 Assistance with Respiratory Ventilation, Less than 24 Consecutive Hours, Continuous Positive Airway Pressure (ICD-10-PCS; 2023-08-09)
DX: A41.59 Other Gram-negative sepsis (principal); R65.21 Severe sepsis with septic shock; J15.0 Pneumonia due to Klebsiella pneumoniae; I50.31 Acute diastolic (congestive) heart failure; J69.0 Pneumonitis due to inhalation of food and vomit; J96.21 Acute and chronic respiratory failure with hypoxia; J98.11 Atelectasis; J44.0 Chronic obstructive pulmonary disease with (acute) lower respiratory infection; E87.3 Alkalosis; E46 Unspecified protein-calorie malnutrition; Z20.822 Contact with and (suspected) exposure to COVID-19; K76.82 Hepatic encephalopathy; E78.5 Hyperlipidemia, unspecified; G40.909 Epilepsy, unspecified, not intractable, without status epilepticus; I11.0 Hypertensive heart disease with heart failure; R13.10 Dysphagia, unspecified; G47.30 Sleep apnea, unspecified; E86.0 Dehydration; K44.9 Diaphragmatic hernia without obstruction or gangrene; I48.91 Unspecified atrial fibrillation; F17.210 Nicotine dependence, cigarettes, uncomplicated; E11.9 Type 2 diabetes mellitus without complications; T17.928A Food in respiratory tract, part unspecified causing other injury, initial encounter; W44.F3XA Food entering into or through a natural orifice, initial encounter; Z98.2 Presence of cerebrospinal fluid drainage device; Z86.73 Personal history of transient ischemic attack (TIA), and cerebral infarction without residual deficits; Z87.11 Personal history of peptic ulcer disease; Z74.01 Bed confinement status; Z68.24 Body mass index [BMI] 24.0-24.9, adult; Z90.49 Acquired absence of other specified parts of digestive tract; Z82.49 Family history of ischemic heart disease and other diseases of the circulatory system; Z79.899 Other long term (current) drug therapy; Z79.84 Long term (current) use of oral hypoglycemic drugs; Z79.82 Long term (current) use of aspirin
CPT/HCPCS: 31645; 36415; 36569; 36600; 70450; 71045; 71275; 80048; 80053; 80069; 80202; 80307; 80320; 80329; 81001; 82140; 82565; 82805; 82962; 83036; 83605; 83690; 83735; 83880; 84100; 84439; 84443; 84481; 84484; 85025; 85610; 85730; 86850; 86900; 86901; 87040; 87070; 87077; 87081; 87186; 87205; 92610; 93005; 93306; 94002; 94003; 94640; 94660; 94668; 96365; 96375; 97110; 97116; 97163; 97530; 99291; C9113; G0378; J0171; J0690; J0696; J1100; J1815; J1956; J2001; J2185; J2250; J2543; J2704; J3480; J3490; J7060; Q9956

== ENCOUNTER 2023-08-21 00:01 | Inpatient (IN) | payer OTHER, MEDICAID ==
[~2023-08-21] VITALS: Ht 167.6 cm; Wt 69.7 kg
[~2023-08-21 00:01] MED LIST changes: -ACET-3 PO; +ALBU2TAB11 PO; -AMIT25TA20 PO; -CALC500C71 PO; -CHOL20007 PO; +FLUT0.05 NAS; -FLUT110A INH; +HYDR-4798 PO; +LACT10SO3 PO; +LEVE100S4 PO; +LEVO500T91 PO; +LIDO1.8P EX; +LINA1CAP2 PO; +MAGN400T40 PO; -MELO-335 PO; -METF-370 PO; -OMEG600C2 PO; +PRAV20TA3 PO; -SERDISK IN; +ZINC1TAB PO; +[UNRECOGNIZED DRUG - CODE] TOP
[2023-08-21 00:07] VITALS: PULSE 120; RESP 18; O2SAT 94
[2023-08-21 01:11] LABS: INR 1.04 (0.9-1.15); Partial Thromboplastin Time 27.4 SEC (24.5-34.5); Prothrombin Time 10.9 sec (9.3-11.8)
[2023-08-21 01:13] LABS: Alanine Aminotransferase 16 U/L (7-40); Albumin 4.1 g/dL (3.2-4.8); Alkaline Phosphatase 93 U/L (46-116); Anion Gap 6 (5-15); Aspartate Aminotransferase 21 U/L (13-40); Bilirubin, Total 0.2 mg/dL (0.2-1.0); Calcium 10.6 mg/dL (8.7-10.4); Carbon Dioxide 36 mmol/L (20-30); Chloride 94 mmol/L (98-107); Glucose 123 mg/dL (74-106); Potassium 4.3 mmol/L (3.5-5.1); Sodium 136 mmol/L (136-145); Total Protein 7.1 g/dL (5.7-8.2)
[2023-08-21 01:33] LABS: BUN/Creatinine Ratio 7.6 (10.0-20.0); Blood Urea Nitrogen < 5 mg/dL (9-23)
[2023-08-21] MEDS ORDERED: cefTRIAXone 1GM/50ML D5W 50 ML IV ONE (01:45)
[2023-08-21] MEDS ORDERED: AZITHROMYCIN 500MG/ 250ML 250 ML IV ONE (01:45)
[2023-08-21] MEDS ORDERED: ACETAMINOPHEN 325 MG TAB PO ONE (01:45)
[2023-08-21] MEDS ORDERED: LACTATED RINGER'S 1,000 ML IV ONE (01:45)
[2023-08-21] MEDS ORDERED: DexAMETHasone SOD PHOS 10MG/1ML VIAL INJ IV ONE (01:45)
[2023-08-21 01:51] LABS: Basophils # (auto) 0 10 ^3/uL (0-0.2); Basophils % (auto) 0.2 % (0.0-2.0); Eosinophils # (auto) 0.1 10 ^3/uL (0-0.8); Eosinophils % (auto) 1.4 % (0.0-7.0); Hematocrit 38.6 % (41.0-53.0); Hemoglobin 12.7 g/dL (13.5-17.5); Lymphocytes # (auto) 0.7 10 ^3/uL (0.4-5.4); Lymphocytes % (auto) 8.7 % (10.0-50.0); Mean Corpuscular Hemoglobin 30.7 pg (28.0-32.0); Mean Corpuscular Hgb Conc. 32.9 g/dL (32.0-36.0); Mean Corpuscular Volume 93.1 fL (80.0-100.0); Monocytes # (auto) 0.6 10 ^3/uL (0-1.3); Monocytes % (auto) 7.5 % (0.0-12.0); Neutrophils % (auto) 82.2 % (37.0-80.0); Nucleated Red Blood Cells % 0.1 %; Red Blood Cells 4.15 10^6/uL (4.5-5.90); White Blood Cell 8.5 10^3/uL (4.4-10.8)
[2023-08-21] MEDS ORDERED: ACETAMINOPHEN 650 mg PER 20.3 mL UD GT ONE (02:30)
[2023-08-21 05:34] LABS: Urine Bacteria FEW /hpf (None Seen); Urine Blood 1+ /uL (Negative); Urine Clarity HAZY (Clear); Urine Color Yellow (Yellow); Urine Mucus FEW (None Seen); Urine Protein, UAD TRACE (Negative); Urine Specific Gravity 1.013 (1.001-1.035); Urine Urobilinogen Normal (Negative); Urine WBC 16 /hpf (0 - 3); Urine pH 6.5 (5.0-8.0)
[2023-08-21 05:50] VITALS: BP 117/61; PULSE 81; O2SAT 98
[2023-08-21 08:50] VITALS: BP 114/57; PULSE 68; O2SAT 97
[2023-08-21] MEDS ORDERED: MORPHINE SULFATE INJ 2 MG/ml SYRG IV PRN (09:00)
[2023-08-21] MEDS ORDERED: guaiFENesin-DM 100/10mg/5ml SYR PO PRN (09:00)
[2023-08-21] MEDS ORDERED: ONDANSETRON HCL 4 MG/2 ML VIAL IV PRN (09:00)
[2023-08-21] MEDS ORDERED: NITROGLYCERIN 0.4 MG SL TAB SL PRN (09:00)
[2023-08-21] MEDS ORDERED: DOCUSATE SOD 100 MG CAP PO PRN (09:00)
[2023-08-21] MEDS ORDERED: ACETAMINOPHEN 325 MG TAB PO PRN (09:00)
[2023-08-21] MEDS: SODIUM CHLORIDE 0.9% 1,000 ML IV SCH ×2 (09:00→22:44)
[2023-08-21] MEDS ORDERED: LACTULOSE 10g/15ml SOLN 473ML PO PRN (09:15)
[2023-08-21] MEDS ORDERED: DEXTROSE (50%) 50ML SYRG IV PRN (09:30)
[2023-08-21 09:33] LABS: Base Excess 4.9 mmol/L (-2.0-2.0)
[2023-08-21] MEDS ORDERED: ASPirin 81 mg TAB PO SCH (10:00)
[2023-08-21] MEDS ORDERED: LINACLOTIDE BASE 145 MCG PO SCH (10:00)
[2023-08-21] MEDS ORDERED: PRAVASTATIN SODIUM 20 MG TAB PO SCH (10:00)
[2023-08-21] MEDS: levETIRAcetam 500 MG/5ML ORAL SOLN UD PO SCH ×2 (10:00→22:44)
[2023-08-21] MEDS ORDERED: MAGNESIUM OXIDE 400 MG TAB PO SCH (10:00)
[2023-08-21] MEDS ORDERED: VITAMIN C PO SCH (10:00)
[2023-08-21] MEDS ORDERED: ZINC PO SCH (10:00)
[2023-08-21] MEDS ORDERED: FOLIC ACID 1 MG TAB PO SCH (10:00)
[2023-08-21 10:04] VITALS: PULSE 68; O2SAT 96
[2023-08-21] MEDS: ACCU-CHEK COMFORT CURVE STRIP VI SCH ×3 (11:30→22:16)
[2023-08-21] MEDS: InsuLIN REG 1unit/0.01ml Soln (100units/ml) SC SCH ×3 (12:33→22:00)
[2023-08-21] MEDS: ENOXAPARIN SOD 40 MG/0.4 ML SYRINGE SC SCH (12:41)
[2023-08-21] MEDS: Glucerna Carbsteady SHAKE Chocolate 8oz PO SCH ×3 (13:45→22:00)
[2023-08-21 14:19] VITALS: BP 115/56; PULSE 81; RESP 20; TEMP 98.2; O2SAT 96
[2023-08-21] MEDS ORDERED: TAMSULOSIN HYDROCHLORIDE 0.4 MG CAP PO SCH (18:00)
[2023-08-21 19:30] VITALS: PULSE 85; RESP 18; O2SAT 95
[2023-08-22] VITALS (13 sets, daily range): BP systolic 76–137; BP diastolic 45–68; PULSE 73–101; RESP 16–18; TEMP 98.1–98.9; O2SAT 93–98
[2023-08-22] MEDS ORDERED: IPRATROPIUM BROM 0.5 MG/2.5ML INH SOL NEB PRN (01:00)
[2023-08-22] MEDS ORDERED: ALBUTEROL SULF 2.5 MG/0.5ML(0.5%) NEB SOLN NEB PRN (01:00)
[2023-08-22] MEDS ORDERED: ALBUTEROL MEDNEB 2.5 mg/3ml NEB ONE (01:13)
[2023-08-22 02:43] LABS: COVID19 ANTIGEN SOFIA FIA POSITIVE (NEGATIVE)
[2023-08-22] MEDS ORDERED: GABAPENTIN 100 MG CAP PO ONE (02:45)
[2023-08-22] MEDS: InsuLIN REG 1unit/0.01ml Soln (100units/ml) SC SCH ×4 (05:58→21:52)
[2023-08-22] MEDS: ACCU-CHEK COMFORT CURVE STRIP VI SCH ×4 (05:58→21:52)
[2023-08-22] MEDS ORDERED: TAMS0.4C36 PO (06:09)
[2023-08-22] MEDS ORDERED: CLOT1CRE51 TOP (06:09)
[2023-08-22] MEDS ORDERED: PANT1INJ3 (06:09)
[2023-08-22] MEDS ORDERED: Glucerna Carbsteady SHAKE Chocolate 8oz GT SCH (06:15)
[2023-08-22 08:34] LABS: Basophils # (auto) 0 10 ^3/uL (0-0.2); Basophils % (auto) 0.3 % (0.0-2.0); Eosinophils # (auto) 0.1 10 ^3/uL (0-0.8); Eosinophils % (auto) 1.5 % (0.0-7.0); Hematocrit 31.5 % (41.0-53.0); Hemoglobin 10.6 g/dL (13.5-17.5); Lymphocytes % (auto) 24.2 % (10.0-50.0); Mean Corpuscular Hemoglobin 30.6 pg (28.0-32.0); Mean Corpuscular Hgb Conc. 33.5 g/dL (32.0-36.0); Mean Corpuscular Volume 91.4 fL (80.0-100.0); Monocytes # (auto) 0.6 10 ^3/uL (0-1.3); Monocytes % (auto) 7.7 % (0.0-12.0); Neutrophils # (auto) 5.4 10 ^3/uL (1.6-8.6); Neutrophils % (auto) 66.3 % (37.0-80.0); Red Blood Cells 3.45 10^6/uL (4.5-5.90); Red Cell Distribution Width 13.3 % (11.8-14.3); White Blood Cell 8.2 10^3/uL (4.4-10.8)
[2023-08-22] MEDS ORDERED: cefTRIAXone 1GM/50ML D5W 50 ML IV SCH (09:00)
[2023-08-22 09:16] LABS: Alanine Aminotransferase 12 U/L (7-40); Albumin 3.4 g/dL (3.2-4.8); Alkaline Phosphatase 67 U/L (46-116); Anion Gap 0 (5-15); Aspartate Aminotransferase 11 U/L (13-40); BUN/Creatinine Ratio 13.5 (10.0-20.0); Blood Urea Nitrogen 7 mg/dL (9-23); Calcium 9.8 mg/dL (8.5-10.1); Carbon Dioxide 38 mmol/L (20-30); Chloride 101 mmol/L (98-107); Glucose 122 mg/dL (74-106); Sodium 139 mmol/L (136-145)
[2023-08-22 09:17] LABS: Bilirubin, Total 0.2 mg/dL (0.2-1.0); Total Protein 5.8 g/dL (5.7-8.2)
[2023-08-22 09:40] LABS: Hepatitis B Surface Antigen Negative (Negative)
[2023-08-22] MEDS ORDERED: AZITHROMYCIN 500MG/ 250ML 250 ML IV SCH (10:00)
[2023-08-22 10:01] LABS: Hepatitis C Antibody Negative (Negative)
[2023-08-22] MEDS ORDERED: ACETAMINOPHEN 650 mg PER 20.3 mL UD GT PRN (11:30)
[2023-08-22] MEDS ORDERED: guaiFENesin-DM 100/10mg/5ml SYR GT PRN (11:30)
[2023-08-22] MEDS ORDERED: ALBUTEROL MEDNEB 2.5 mg/3ml NEB NEB PRN (11:30)
[2023-08-22] MEDS: ENOXAPARIN SOD 40 MG/0.4 ML SYRINGE SC SCH (12:07)
[2023-08-22] MEDS: Glucerna Carbsteady SHAKE Chocolate 8oz GT SCH ×3 (12:07→21:51)
[2023-08-22] MEDS ORDERED: DOCUSATE ORAL LIQUID 100 MG/10 ML UD GT PRN (12:15)
[2023-08-22] MEDS ORDERED: LACTULOSE 10g/15ml SOLN 473ML GT PRN (12:15)
[2023-08-22] MEDS ORDERED: LACTULOSE 20Gm/30ML SOLN GT PRN (14:45)
[2023-08-22] MEDS: FREE WATER GT SCH ×2 (16:35→21:52)
[2023-08-22] MEDS ORDERED: levoFLOXacin 500MG 100 ML IV ONE (20:00)
[2023-08-22] MEDS: levETIRAcetam 500 MG/5ML ORAL SOLN UD GT SCH (21:51)
[2023-08-22 22:22] LABS: COVID19 ANTIGEN SOFIA FIA NEGATIVE (NEGATIVE)
[2023-08-23] VITALS (9 sets, daily range): BP systolic 100–116; BP diastolic 60–71; PULSE 60–94; RESP 15–21; TEMP 97.9–98.3; O2SAT 97–99
[2023-08-23] MEDS: FREE WATER GT SCH ×3 (06:13→22:00)
[2023-08-23] MEDS: Glucerna Carbsteady SHAKE Chocolate 8oz GT SCH ×4 (06:13→22:00)
[2023-08-23 06:19] LABS: Basophils # (auto) 0.1 10 ^3/uL (0-0.2); Basophils % (auto) 1.1 % (0.0-2.0); Eosinophils # (auto) 0.2 10 ^3/uL (0-0.8); Eosinophils % (auto) 3.3 % (0.0-7.0); Hematocrit 33.3 % (41.0-53.0); Hemoglobin 11.1 g/dL (13.5-17.5); Lymphocytes # (auto) 2.2 10 ^3/uL (0.4-5.4); Lymphocytes % (auto) 35.7 % (10.0-50.0); Mean Corpuscular Hemoglobin 30.4 pg (28.0-32.0); Mean Corpuscular Hgb Conc. 33.3 g/dL (32.0-36.0); Mean Corpuscular Volume 91.2 fL (80.0-100.0); Monocytes # (auto) 0.5 10 ^3/uL (0-1.3); Monocytes % (auto) 8.5 % (0.0-12.0); Neutrophils # (auto) 3.1 10 ^3/uL (1.6-8.6); Neutrophils % (auto) 51.4 % (37.0-80.0); Red Blood Cells 3.65 10^6/uL (4.5-5.90); Red Cell Distribution Width 13.2 % (11.8-14.3)
[2023-08-23 06:26] LABS: Chloride 100 mmol/L (98-107); Potassium 3.9 mmol/L (3.5-5.1); Sodium 140 mmol/L (136-145)
[2023-08-23 06:27] LABS: Anion Gap 3 (5-15); Carbon Dioxide 37 mmol/L (20-30)
[2023-08-23 06:32] LABS: BUN/Creatinine Ratio 12.2 (10.0-20.0); Blood Urea Nitrogen 6 mg/dL (9-23); Glucose 86 mg/dL (74-106)
[2023-08-23] MEDS: ACCU-CHEK COMFORT CURVE STRIP VI SCH ×4 (06:33→22:00)
[2023-08-23] MEDS: InsuLIN REG 1unit/0.01ml Soln (100units/ml) SC SCH ×4 (06:33→22:00)
[2023-08-23] MEDS ORDERED: POTASSIUM EFFERVESENT TAB 25 MEQ GT ONE (11:00)
[2023-08-23] MEDS ORDERED: FUROSEMIDE 40 MG TAB PO ONE (11:00)
[2023-08-23] MEDS: PRAVASTATIN SODIUM 20 MG TAB GT SCH (11:22)
[2023-08-23] MEDS: levETIRAcetam 500 MG/5ML ORAL SOLN UD GT SCH (11:22)
[2023-08-23] MEDS: levoFLOXacin 500MG 100 ML IV SCH (11:22)
[2023-08-23] MEDS: ASPirin 81 mg TAB GT SCH (11:23)
[2023-08-23] MEDS: ENOXAPARIN SOD 40 MG/0.4 ML SYRINGE SC SCH (11:23)
[2023-08-24] VITALS (9 sets, daily range): BP systolic 83–96; BP diastolic 46–59; PULSE 78–92; RESP 15–17; TEMP 97.8–98.2; O2SAT 95–100
[2023-08-24] MEDS: levETIRAcetam 500 MG/5ML ORAL SOLN UD GT SCH ×2 (00:20→10:50)
[2023-08-24] MEDS: Glucerna Carbsteady SHAKE Chocolate 8oz GT SCH ×3 (06:00→18:55)
[2023-08-24] MEDS: FREE WATER GT SCH ×2 (06:00→17:28)
[2023-08-24] MEDS: ACCU-CHEK COMFORT CURVE STRIP VI SCH ×3 (06:06→17:00)
[2023-08-24] MEDS: InsuLIN REG 1unit/0.01ml Soln (100units/ml) SC SCH ×3 (07:00→17:00)
[2023-08-24] MEDS ORDERED: POTASSIUM EFFERVESENT TAB 25 MEQ GT SCH (10:00)
[2023-08-24] MEDS ORDERED: FUROSEMIDE 40 MG TAB PO SCH (10:00)
[2023-08-24] MEDS: ASPirin 81 mg TAB GT SCH (10:49)
[2023-08-24] MEDS: PRAVASTATIN SODIUM 20 MG TAB GT SCH (10:49)
[2023-08-24] MEDS: levoFLOXacin 500MG 100 ML IV SCH (10:51)
[2023-08-24] MEDS: ENOXAPARIN SOD 40 MG/0.4 ML SYRINGE SC SCH (10:52)
[2023-08-24] MEDS ORDERED: FURO1TAB31 PO (11:27)
[2023-08-24] MEDS ORDERED: LEVO500T91 PO (11:27)
[2023-08-24] MEDS ORDERED: POTA-220 PO (11:27)
[2023-08-24] MEDS ORDERED: DOCUSATE ORAL LIQUID 100 MG/10 ML UD GT ONE (12:45)
[2023-08-24] MEDS ORDERED: LACTULOSE 20Gm/30ML SOLN PO ONE (12:45)
[2023-08-24] MEDS ORDERED: BISACODYL 10 MG RECT SUPP PR ONE (17:00)
== END 2023-08-24 18:50 | disposition home or self-care (01) | DRG 871 ==
LOC: EDBD 00:01 → ER 00:01 → TELE 08:55 → TELE-EAST 08-22 03:51
PROVIDERS: ADMIT Nurse Practitioner Family; ATTEND Internal Medicine
PROC: 5A09357 Assistance with Respiratory Ventilation, Less than 24 Consecutive Hours, Continuous Positive Airway Pressure (ICD-10-PCS; principal; 2023-08-21)
PROC: 5A09357 Assistance with Respiratory Ventilation, Less than 24 Consecutive Hours, Continuous Positive Airway Pressure (ICD-10-PCS; 2023-08-22)
PROC: 5A09357 Assistance with Respiratory Ventilation, Less than 24 Consecutive Hours, Continuous Positive Airway Pressure (ICD-10-PCS; 2023-08-23)
PROC: 5A09357 Assistance with Respiratory Ventilation, Less than 24 Consecutive Hours, Continuous Positive Airway Pressure (ICD-10-PCS; 2023-08-24)
DX: A41.9 Sepsis, unspecified organism (principal); G82.50 Quadriplegia, unspecified; U07.1 COVID-19; I50.33 Acute on chronic diastolic (congestive) heart failure; J12.82 Pneumonia due to coronavirus disease 2019; J96.21 Acute and chronic respiratory failure with hypoxia; N30.00 Acute cystitis without hematuria; J98.11 Atelectasis; J44.0 Chronic obstructive pulmonary disease with (acute) lower respiratory infection; I13.0 Hypertensive heart and chronic kidney disease with heart failure and stage 1 through stage 4 chronic kidney disease, or unspecified chronic kidney disease; Z20.822 Contact with and (suspected) exposure to COVID-19; F17.210 Nicotine dependence, cigarettes, uncomplicated; E78.5 Hyperlipidemia, unspecified; I48.91 Unspecified atrial fibrillation; G40.909 Epilepsy, unspecified, not intractable, without status epilepticus; E11.22 Type 2 diabetes mellitus with diabetic chronic kidney disease; N18.9 Chronic kidney disease, unspecified; Z87.11 Personal history of peptic ulcer disease; Z74.01 Bed confinement status; Z99.81 Dependence on supplemental oxygen; Z79.82 Long term (current) use of aspirin; Z79.4 Long term (current) use of insulin; Z90.49 Acquired absence of other specified parts of digestive tract; Z93.1 Gastrostomy status; Z82.49 Family history of ischemic heart disease and other diseases of the circulatory system; Z80.9 Family history of malignant neoplasm, unspecified
CPT/HCPCS: 36415; 36600; 71045; 80048; 80053; 81001; 82140; 82805; 82962; 83605; 83880; 84484; 85025; 85610; 85730; 86803; 87040; 87086; 87088; 87340; 87426; 93005; 94640; 94660; 96365; 96367; 96375; G0378; J0696; J1100; J1815; J1956; J2405

== ENCOUNTER 2024-01-14 20:21 | Inpatient (IN) | payer OTHER, MEDICAID ==
[~2024-01-14] VITALS: Ht 167.6 cm; Wt 62.6 kg
[~2024-01-14 20:21] MED LIST changes: -ASPI325T4 PO; +ASPI325T6 PO; -AZIT-81 PO; -CEPH-509 PO; +CLOT1CRE51 TOP; +FURO1TAB31 PO; +PANT1INJ3; +POTA-220 PO
[2024-01-14] MEDS: ACETAMINOPHEN 650 mg PER 20.3 mL UD GT ONE (20:39)
[2024-01-14 21:00] VITALS: PULSE 106; RESP 24; O2SAT 95
[2024-01-14 21:15] LABS: Basophils # (auto) 0 10 ^3/uL (0-0.2); Basophils % (auto) 0.2 % (0.0-2.0); Eosinophils # (auto) 0.1 10 ^3/uL (0-0.8); Eosinophils % (auto) 1.4 % (0.0-7.0); Hematocrit 36.8 % (41.0-53.0); Hemoglobin 12.2 g/dL (13.5-17.5); Lymphocytes # (auto) 1.1 10 ^3/uL (0.4-5.4); Mean Corpuscular Hemoglobin 29.5 pg (28.0-32.0); Mean Corpuscular Hgb Conc. 33.1 g/dL (32.0-36.0); Mean Corpuscular Volume 89.2 fL (80.0-100.0); Monocytes # (auto) 0.7 10 ^3/uL (0-1.3); Monocytes % (auto) 7.5 % (0.0-12.0); Neutrophils # (auto) 7.3 10 ^3/uL (1.6-8.6); Neutrophils % (auto) 78.9 % (37.0-80.0); Nucleated Red Blood Cells % 0.1 %; Red Blood Cells 4.12 10^6/uL (4.5-5.90); Red Cell Distribution Width 12.2 % (11.8-14.3); White Blood Cell 9.2 10^3/uL (4.4-10.8)
[2024-01-14] MEDS: SODIUM CHLORIDE 0.9% 1,000 ML IV ONE ×2 (21:15→21:35)
[2024-01-14 21:28] LABS: Alanine Aminotransferase 13 U/L (7-40); Alkaline Phosphatase 94 U/L (46-116); Anion Gap 6 (5-15); Aspartate Aminotransferase 17 U/L (13-40); BUN/Creatinine Ratio 21.8 (10.0-20.0); Bilirubin, Total 0.2 mg/dL (0.2-1.0); Blood Urea Nitrogen 17 mg/dL (9-23); Calcium 9.4 mg/dL (8.7-10.4); Carbon Dioxide 31 mmol/L (20-30); Chloride 96 mmol/L (98-107); Glucose 138 mg/dL (74-106); Potassium 3.8 mmol/L (3.5-5.1); Sodium 133 mmol/L (136-145); Total Protein 7.3 g/dL (5.7-8.2)
[2024-01-14] MEDS: levoFLOXacin 500MG 100 ML IV ONE (21:35)
[2024-01-14] MEDS: VANCOMYCIN 1GM/200ML 200 ML IV ONE (21:46)
[2024-01-14 22:08] LABS: Urine Bacteria FEW /hpf (None Seen); Urine Blood Negative /uL (Negative); Urine Clarity HAZY (Clear); Urine Color Colorless (Yellow); Urine Protein, UAD Negative (Negative); Urine Specific Gravity 1.013 (1.001-1.035); Urine Urobilinogen Normal (Negative); Urine WBC 53 /hpf (0 - 3)
[2024-01-15] MEDS: NOREPINEPHRINE 8 MG/250ML KIT 250 ML IV SCH (01:30)
[2024-01-15] MEDS ORDERED: DOCUSATE SOD 100 MG CAP PO PRN (01:45)
[2024-01-15] MEDS ORDERED: DEXTROSE (50%) 50ML SYRG IV PRN (01:45)
[2024-01-15] MEDS ORDERED: NITROGLYCERIN 0.4 MG SL TAB SL PRN (01:45)
[2024-01-15] MEDS ORDERED: MORPHINE SULFATE INJ 2 MG/ml SYRG IV PRN (01:45)
[2024-01-15] MEDS ORDERED: ONDANSETRON HCL 4 MG/2 ML VIAL IV PRN (01:45)
[2024-01-15 01:59] VITALS: BP 88/48; PULSE 89; RESP 18; O2SAT 92
[2024-01-15] MEDS: SODIUM CHLORIDE 0.9% 1,000 ML IV SCH ×2 (02:50→12:43)
[2024-01-15] MEDS: HYDROcodone-ACET 5/325MG TAB PO PRN (03:51)
[2024-01-15 05:54] LABS: Basophils # (auto) 0 10 ^3/uL (0-0.2); Basophils % (auto) 0.1 % (0.0-2.0); Eosinophils # (auto) 0 10 ^3/uL (0-0.8); Eosinophils % (auto) 0.1 % (0.0-7.0); Hematocrit 34.3 % (41.0-53.0); Hemoglobin 11.5 g/dL (13.5-17.5); Lymphocytes # (auto) 1.3 10 ^3/uL (0.4-5.4); Mean Corpuscular Hemoglobin 29.7 pg (28.0-32.0); Mean Corpuscular Hgb Conc. 33.7 g/dL (32.0-36.0); Mean Corpuscular Volume 88.1 fL (80.0-100.0); Monocytes # (auto) 0.5 10 ^3/uL (0-1.3); Monocytes % (auto) 5.1 % (0.0-12.0); Neutrophils # (auto) 8.9 10 ^3/uL (1.6-8.6); Neutrophils % (auto) 82.7 % (37.0-80.0); Red Blood Cells 3.89 10^6/uL (4.5-5.90); Red Cell Distribution Width 12.2 % (11.8-14.3); White Blood Cell 10.8 10^3/uL (4.4-10.8)
[2024-01-15] MEDS: InsuLIN REG 1unit/0.01ml Soln (100units/ml) SC SCH ×2 (06:26→21:58)
[2024-01-15] MEDS: ACCU-CHEK COMFORT CURVE STRIP VI SCH (06:26)
[2024-01-15 07:08] LABS: Alanine Aminotransferase 11 U/L (7-40); Albumin 3.7 g/dL (3.2-4.8); Alkaline Phosphatase 79 U/L (46-116); Anion Gap 6 (5-15); Aspartate Aminotransferase 15 U/L (13-40); BUN/Creatinine Ratio 19.1 (10.0-20.0); Bilirubin, Total 0.3 mg/dL (0.2-1.0); Blood Urea Nitrogen 13 mg/dL (9-23); Calcium 8.6 mg/dL (8.5-10.1); Carbon Dioxide 26 mmol/L (20-30); Chloride 105 mmol/L (98-107); Glucose 128 mg/dL (74-106); Potassium 3.6 mmol/L (3.5-5.1); Sodium 137 mmol/L (136-145); Total Protein 6.3 g/dL (5.7-8.2)
[2024-01-15 07:15] VITALS: PULSE 91; RESP 26; O2SAT 94
[2024-01-15] MEDS: IPRATROPIUM BROM 0.5 MG/2.5ML INH SOL NEB PRN (08:01)
[2024-01-15] MEDS: ALBUTEROL SULF 2.5 MG/0.5ML(0.5%) NEB SOLN NEB PRN (08:01)
[2024-01-15 08:03] VITALS: PULSE 99; RESP 25; O2SAT 96
[2024-01-15 08:04] VITALS: PULSE 99; RESP 24; O2SAT 96
[2024-01-15] MEDS: ACETAMINOPHEN 325 MG TAB PO PRN (09:19)
[2024-01-15] MEDS: ASPirin 81 mg TAB PO SCH (10:57)
[2024-01-15] MEDS: levETIRAcetam 500 mg/100ml 100 ML IV SCH (10:57)
[2024-01-15] MEDS: levoFLOXacin 500MG 100 ML IV SCH (11:17)
[2024-01-15 14:22] LABS: Amphetamine Screen, Urine Neg (NEGATIVE); Barbiturate Scree,Urine Neg (NEGATIVE); Benzodiazephine Screen, Urine Neg (NEGATIVE); Cannabinoid Screen, Urine Neg (NEGATIVE); Cocaine Screen, Urine Neg (NEGATIVE); Opiate Scree,Urine Neg (NEGATIVE); Phencyclidine Screen, Urine Neg (NEGATIVE)
[2024-01-15 14:49] LABS: Rapid Influenza A Negative (Negative); Rapid Influenza B Negative (Negative)
[2024-01-15 14:50] LABS: COVID19 ANTIGEN SOFIA FIA NEGATIVE (NEGATIVE)
[2024-01-15 19:07] VITALS: PULSE 80; RESP 27; O2SAT 100
[2024-01-15 19:45] VITALS: O2SAT 97
[2024-01-16] VITALS (10 sets, daily range): BP systolic 107–116; BP diastolic 57–68; PULSE 72–115; RESP 16–34; TEMP 97.6–98.9; O2SAT 93–99
[2024-01-16 05:20] LABS: Basophils # (auto) 0 10 ^3/uL (0-0.2); Basophils % (auto) 0.2 % (0.0-2.0); Eosinophils # (auto) 0.1 10 ^3/uL (0-0.8); Eosinophils % (auto) 0.7 % (0.0-7.0); Hematocrit 29.8 % (41.0-53.0); Hemoglobin 9.9 g/dL (13.5-17.5); Lymphocytes # (auto) 1.7 10 ^3/uL (0.4-5.4); Lymphocytes % (auto) 15.3 % (10.0-50.0); Mean Corpuscular Hemoglobin 29.9 pg (28.0-32.0); Mean Corpuscular Hgb Conc. 33.4 g/dL (32.0-36.0); Mean Corpuscular Volume 89.6 fL (80.0-100.0); Monocytes # (auto) 0.6 10 ^3/uL (0-1.3); Monocytes % (auto) 5.8 % (0.0-12.0); Neutrophils # (auto) 8.7 10 ^3/uL (1.6-8.6); Red Blood Cells 3.33 10^6/uL (4.5-5.90); Red Cell Distribution Width 12.5 % (11.8-14.3); White Blood Cell 11.1 10^3/uL (4.4-10.8)
[2024-01-16 05:38] LABS: Alanine Aminotransferase 12 U/L (7-40); Albumin 3.4 g/dL (3.2-4.8); Alkaline Phosphatase 68 U/L (46-116); Anion Gap 6 (5-15); Aspartate Aminotransferase 25 U/L (13-40); BUN/Creatinine Ratio 11.8 (10.0-20.0); Blood Urea Nitrogen 6 mg/dL (9-23); Calcium 8.4 mg/dL (8.5-10.1); Carbon Dioxide 24 mmol/L (20-30); Chloride 110 mmol/L (98-107); Glucose 91 mg/dL (74-106); Potassium 3.1 mmol/L (3.5-5.1); Sodium 140 mmol/L (136-145)
[2024-01-16 05:39] LABS: Bilirubin, Total 0.2 mg/dL (0.2-1.0); Total Protein 5.8 g/dL (5.7-8.2)
[2024-01-16] MEDS: FREE WATER GT SCH (12:00)
[2024-01-16] MEDS: IPRATROPIUM BROM 0.5 MG/2.5ML INH SOL NEB SCH (12:00)
[2024-01-16] MEDS: Ensure HIGH Protein Chocolate 8oz Bottle PEG SCH (12:00)
[2024-01-16] MEDS: ALBUTEROL SULF 2.5 MG/0.5ML(0.5%) NEB SOLN NEB SCH (12:00)
[2024-01-16] MEDS: POTASSIUM EFFERVESENT TAB 25 MEQ GT ONE (14:03)
[2024-01-16] MEDS ORDERED: LINA145C PO (14:18)
[2024-01-16] MEDS ORDERED: CYAN1TAB11 PO (14:18)
[2024-01-16] MEDS ORDERED: ASPI81CH74 PO (14:18)
[2024-01-16] MEDS ORDERED: LID35TP EX (14:18)
[2024-01-16] MEDS ORDERED: FLUT220A6 IN (14:18)
[2024-01-16] MEDS ORDERED: IPRA0.00 IN (14:30)
[2024-01-16] MEDS ORDERED: CHOL500023 PO (14:30)
[2024-01-16] MEDS ORDERED: NIAC500T89 PO (14:30)
[2024-01-16] MEDS: ERTAPENEM SOD INJ 1 GM in SODIUM CHL 0.9% 50 ML IV ONE (17:20)
[2024-01-16] MEDS ORDERED: DOCUSATE ORAL LIQUID 100 MG/10 ML UD PO PRN (21:30)
[2024-01-16] MEDS: DOCUSATE ORAL LIQUID 100 MG/10 ML UD PEG PRN (21:50)
[2024-01-17] VITALS (19 sets, daily range): BP systolic 94–109; BP diastolic 52–62; PULSE 76–97; RESP 18–20; TEMP 97.3–98.6; O2SAT 94–99
[2024-01-17 06:12] LABS: Basophils # (auto) 0 10 ^3/uL (0-0.2); Basophils % (auto) 0.3 % (0.0-2.0); Eosinophils # (auto) 0.1 10 ^3/uL (0-0.8); Eosinophils % (auto) 1.4 % (0.0-7.0); Hematocrit 35.2 % (41.0-53.0); Lymphocytes # (auto) 1.3 10 ^3/uL (0.4-5.4); Lymphocytes % (auto) 12.3 % (10.0-50.0); Mean Corpuscular Hemoglobin 30.2 pg (28.0-32.0); Mean Corpuscular Volume 88.7 fL (80.0-100.0); Monocytes # (auto) 0.5 10 ^3/uL (0-1.3); Monocytes % (auto) 5.3 % (0.0-12.0); Neutrophils # (auto) 8.3 10 ^3/uL (1.6-8.6); Neutrophils % (auto) 80.7 % (37.0-80.0); Red Blood Cells 3.96 10^6/uL (4.5-5.90); Red Cell Distribution Width 12.2 % (11.8-14.3); White Blood Cell 10.3 10^3/uL (4.4-10.8)
[2024-01-17 06:23] LABS: Chloride 107 mmol/L (98-107); Potassium 3.4 mmol/L (3.5-5.1); Sodium 139 mmol/L (136-145)
[2024-01-17 06:24] LABS: Anion Gap 4 (5-15); Calcium 9.5 mg/dL (8.7-10.4); Carbon Dioxide 28 mmol/L (20-30)
[2024-01-17 06:29] LABS: BUN/Creatinine Ratio 11.8 (10.0-20.0); Blood Urea Nitrogen 6 mg/dL (9-23); Glucose 102 mg/dL (74-106)
[2024-01-17] MEDS: ERTAPENEM SOD INJ 1 GM in SODIUM CHL 0.9% 50 ML IV SCH (10:37)
[2024-01-17] MEDS: POTASSIUM EFFERVESENT TAB 25 MEQ GT ONE (11:19)
[2024-01-17] MEDS: FINASTERIDE 5 MG TAB PO ONE (11:19)
[2024-01-17] MEDS: FREE WATER GT SCH (12:20)
[2024-01-17 13:38] LABS: Urine Bacteria NONE SEEN /hpf (None Seen); Urine Blood 2+ /uL (Negative); Urine Clarity HAZY (Clear); Urine Color Yellow (Yellow); Urine Protein, UAD 2+ (Negative); Urine Specific Gravity 1.015 (1.001-1.035); Urine Urobilinogen Normal (Negative); Urine WBC 14 /hpf (0 - 3); Urine pH 7.5 (5.0-9.0)
[2024-01-17] MEDS: TAMSULOSIN HYDROCHLORIDE 0.4 MG CAP PO SCH (17:40)
[2024-01-18] VITALS (16 sets, daily range): BP systolic 96–112; BP diastolic 52–68; PULSE 83–108; RESP 17–18; TEMP 97.6–99.5; O2SAT 90–97
[2024-01-18 05:51] LABS: Basophils # (auto) 0.1 10 ^3/uL (0-0.2); Basophils % (auto) 0.7 % (0.0-2.0); Eosinophils # (auto) 0.2 10 ^3/uL (0-0.8); Eosinophils % (auto) 2.1 % (0.0-7.0); Hematocrit 33.2 % (41.0-53.0); Hemoglobin 11.1 g/dL (13.5-17.5); Lymphocytes # (auto) 1.6 10 ^3/uL (0.4-5.4); Lymphocytes % (auto) 17.5 % (10.0-50.0); Mean Corpuscular Hemoglobin 29.7 pg (28.0-32.0); Mean Corpuscular Hgb Conc. 33.5 g/dL (32.0-36.0); Mean Corpuscular Volume 88.6 fL (80.0-100.0); Monocytes # (auto) 0.5 10 ^3/uL (0-1.3); Neutrophils # (auto) 6.7 10 ^3/uL (1.6-8.6); Neutrophils % (auto) 73.7 % (37.0-80.0); Red Blood Cells 3.74 10^6/uL (4.5-5.90); Red Cell Distribution Width 12.5 % (11.8-14.3); White Blood Cell 9.1 10^3/uL (4.4-10.8)
[2024-01-18 06:01] LABS: Calcium 9.9 mg/dL (8.5-10.1); Chloride 105 mmol/L (98-107); Potassium 3.7 mmol/L (3.5-5.1); Sodium 138 mmol/L (136-145)
[2024-01-18 06:02] LABS: Anion Gap 3 (5-15); Carbon Dioxide 30 mmol/L (20-30)
[2024-01-18 06:07] LABS: BUN/Creatinine Ratio 18.5 (10.0-20.0); Blood Urea Nitrogen 10 mg/dL (9-23); Glucose 92 mg/dL (74-106)
[2024-01-18] MEDS: FUROSEMIDE 40 MG TAB PO SCH (10:00)
[2024-01-18] MEDS: FINASTERIDE 5 MG TAB PO SCH (10:39)
[2024-01-18] MEDS: POTASSIUM EFFERVESENT TAB 25 MEQ GT SCH (10:40)
[2024-01-19] VITALS (71 sets, daily range): BP systolic 75–114; BP diastolic 37–65; PULSE 82–120; RESP 13–38; TEMP 97.7–100; O2SAT 88–100
[2024-01-19] MEDS: ACETYLCYSTEINE 10 %(100MG/ML) SOL 4ML NEB SCH (07:30)
[2024-01-19] MEDS: IPRATROPIUM BROM 0.5 MG/2.5ML INH SOL NEB SCH (07:30)
[2024-01-19] MEDS: ALBUTEROL SULF 2.5 MG/0.5ML(0.5%) NEB SOLN NEB SCH (07:30)
[2024-01-19 08:53] LABS: Base Excess -0.3 mmol/L (-2.0-2.0)
[2024-01-19] MEDS: NOREPINEPHRINE 8 MG/250ML KIT 250 ML IV SCH (11:00)
[2024-01-19] MEDS: NOREPINEPHRINE 8 MG/250ML KIT 250 ML IV ONE (11:06)
[2024-01-19] MEDS ORDERED: VANCOMYCIN PER PHARMACY 0 MG IV SCH (11:15)
[2024-01-19 11:17] LABS: Base Excess 6.9 mmol/L (-2.0-2.0)
[2024-01-19] MEDS: SODIUM CHLORIDE 0.9% 1,000 ML IV SCH (11:52)
[2024-01-19] MEDS: VANCOMYCIN 1GM/200ML 200 ML IV ONE (11:59)
[2024-01-19] MEDS: MEROPENEM 1GM IVPB 50 ML IV ONE (13:00)
[2024-01-19 13:23] LABS: Base Excess -0.9 mmol/L (-2.0-2.0)
[2024-01-19] MEDS: MEROPENEM 1GM IVPB 50 ML IV SCH (14:00)
[2024-01-19 15:31] LABS: Basophils # (auto) 0 10 ^3/uL (0-0.2); Basophils % (auto) 0.2 % (0.0-2.0); Eosinophils # (auto) 0 10 ^3/uL (0-0.8); Eosinophils % (auto) 0.2 % (0.0-7.0); Hematocrit 36.4 % (41.0-53.0); Lymphocytes # (auto) 1.9 10 ^3/uL (0.4-5.4); Lymphocytes % (auto) 13.6 % (10.0-50.0); Mean Corpuscular Hemoglobin 29.3 pg (28.0-32.0); Mean Corpuscular Volume 88.8 fL (80.0-100.0); Monocytes # (auto) 0.8 10 ^3/uL (0-1.3); Monocytes % (auto) 5.5 % (0.0-12.0); Neutrophils # (auto) 11.4 10 ^3/uL (1.6-8.6); Neutrophils % (auto) 80.5 % (37.0-80.0); Red Cell Distribution Width 12.1 % (11.8-14.3); White Blood Cell 14.1 10^3/uL (4.4-10.8)
[2024-01-19 15:48] LABS: INR 1.06 (0.9-1.15); Partial Thromboplastin Time 32.3 SEC (24.5-34.5); Prothrombin Time 11.1 sec (9.3-11.8)
[2024-01-19 16:36] LABS: Base Excess 5.6 mmol/L (-2.0-2.0)
[2024-01-19] MEDS: VANCOMYCIN 1GM/200ML 200 ML IV SCH (21:12)
[2024-01-20] VITALS (114 sets, daily range): BP systolic 78–130; BP diastolic 35–71; PULSE 82–126; RESP 14–59; TEMP 98.7–100.4; O2SAT 80–99
[2024-01-20 05:41] LABS: Basophils # (auto) 0 10 ^3/uL (0-0.2); Basophils % (auto) 0.2 % (0.0-2.0); Eosinophils # (auto) 0.1 10 ^3/uL (0-0.8); Eosinophils % (auto) 0.5 % (0.0-7.0); Hematocrit 34.6 % (41.0-53.0); Hemoglobin 11.2 g/dL (13.5-17.5); Lymphocytes # (auto) 1.5 10 ^3/uL (0.4-5.4); Lymphocytes % (auto) 11.4 % (10.0-50.0); Mean Corpuscular Hemoglobin 29.1 pg (28.0-32.0); Mean Corpuscular Hgb Conc. 32.3 g/dL (32.0-36.0); Mean Corpuscular Volume 90.1 fL (80.0-100.0); Monocytes # (auto) 1.1 10 ^3/uL (0-1.3); Monocytes % (auto) 8.6 % (0.0-12.0); Neutrophils # (auto) 10.3 10 ^3/uL (1.6-8.6); Neutrophils % (auto) 79.3 % (37.0-80.0); Nucleated Red Blood Cells % 0.1 %; Red Blood Cells 3.84 10^6/uL (4.5-5.90); Red Cell Distribution Width 12.5 % (11.8-14.3); White Blood Cell 12.9 10^3/uL (4.4-10.8)
[2024-01-20 06:19] LABS: Alanine Aminotransferase 18 U/L (7-40); Alkaline Phosphatase 78 U/L (46-116); Anion Gap 7 (5-15); BUN/Creatinine Ratio 23.6 (10.0-20.0); Blood Urea Nitrogen 13 mg/dL (9-23); Calcium 9.7 mg/dL (8.7-10.4); Carbon Dioxide 30 mmol/L (20-30); Chloride 105 mmol/L (98-107); Glucose 114 mg/dL (74-106); Potassium 3.9 mmol/L (3.5-5.1); Sodium 142 mmol/L (136-145)
[2024-01-20 06:20] LABS: Albumin 3.7 g/dL (3.2-4.8); Aspartate Aminotransferase 16 U/L (13-40)
[2024-01-20 06:21] LABS: Bilirubin, Total 0.2 mg/dL (0.2-1.0)
[2024-01-20 09:52] LABS: Base Excess 1.1 mmol/L (-2.0-2.0)
[2024-01-21] VITALS (97 sets, daily range): BP systolic 90–169; BP diastolic 44–89; PULSE 76–102; RESP 14–64; TEMP 97.6–99.1; O2SAT 85–99
[2024-01-21 05:39] LABS: Basophils # (auto) 0 10 ^3/uL (0-0.2); Basophils % (auto) 0.3 % (0.0-2.0); Eosinophils # (auto) 0 10 ^3/uL (0-0.8); Eosinophils % (auto) 0.3 % (0.0-7.0); Hematocrit 34.5 % (41.0-53.0); Hemoglobin 11.1 g/dL (13.5-17.5); Lymphocytes # (auto) 1.5 10 ^3/uL (0.4-5.4); Lymphocytes % (auto) 12.7 % (10.0-50.0); Mean Corpuscular Hemoglobin 28.8 pg (28.0-32.0); Mean Corpuscular Hgb Conc. 32.2 g/dL (32.0-36.0); Mean Corpuscular Volume 89.6 fL (80.0-100.0); Monocytes % (auto) 8.3 % (0.0-12.0); Neutrophils # (auto) 9.1 10 ^3/uL (1.6-8.6); Neutrophils % (auto) 78.4 % (37.0-80.0); Red Blood Cells 3.85 10^6/uL (4.5-5.90); Red Cell Distribution Width 12.5 % (11.8-14.3); White Blood Cell 11.6 10^3/uL (4.4-10.8)
[2024-01-21 05:46] LABS: Anion Gap 0 (5-15); Carbon Dioxide 35 mmol/L (20-30); Chloride 109 mmol/L (98-107); Potassium 3.5 mmol/L (3.5-5.1); Sodium 144 mmol/L (136-145)
[2024-01-21 05:52] LABS: BUN/Creatinine Ratio 29.8 (10.0-20.0); Blood Urea Nitrogen 14 mg/dL (9-23); Glucose 153 mg/dL (74-106)
[2024-01-21] MEDS: LIDOCAINE 1% (LOCAL ANESTH.) PF 5ml SDV ID ONE (09:15)
[2024-01-21] MEDS: SODIUM CHLOR 0.9% PF (SALINE LOCK) 10ML VIAL/SYR IV SCH (10:00)
[2024-01-21 11:20] LABS: Base Excess 5.8 mmol/L (-2.0-2.0)
[2024-01-21] MEDS: PANTOPRAZOLE 40 MG TAB PO ONE (17:00)
[2024-01-21] MEDS: ENOXAPARIN SOD 30 MG/0.3 ML SYRINGE SC ONE (22:00)
[2024-01-22] VITALS (73 sets, daily range): BP systolic 53–163; BP diastolic 24–93; PULSE 75–104; RESP 10–34; TEMP 98.2–99.2; O2SAT 90–100
[2024-01-22 03:03] LABS: Basophils # (auto) 0 10 ^3/uL (0-0.2); Basophils % (auto) 0.2 % (0.0-2.0); Eosinophils # (auto) 0 10 ^3/uL (0-0.8); Eosinophils % (auto) 0.3 % (0.0-7.0); Hematocrit 33.4 % (41.0-53.0); Hemoglobin 10.9 g/dL (13.5-17.5); Lymphocytes # (auto) 1.6 10 ^3/uL (0.4-5.4); Lymphocytes % (auto) 13.6 % (10.0-50.0); Mean Corpuscular Hemoglobin 29.3 pg (28.0-32.0); Mean Corpuscular Hgb Conc. 32.7 g/dL (32.0-36.0); Mean Corpuscular Volume 89.5 fL (80.0-100.0); Monocytes # (auto) 0.8 10 ^3/uL (0-1.3); Monocytes % (auto) 6.7 % (0.0-12.0); Neutrophils # (auto) 9.5 10 ^3/uL (1.6-8.6); Neutrophils % (auto) 79.2 % (37.0-80.0); Red Blood Cells 3.73 10^6/uL (4.5-5.90); Red Cell Distribution Width 12.5 % (11.8-14.3)
[2024-01-22 08:49] LABS: Base Excess 5.4 mmol/L (-2.0-2.0)
[2024-01-22] MEDS: PANTOPRAZOLE 40 MG TAB PO SCH (10:00)
[2024-01-22] MEDS: ENOXAPARIN SOD 30 MG/0.3 ML SYRINGE SC SCH (10:24)
[2024-01-22] MEDS: VANCOMYCIN 1GM/200ML 200 ML IV SCH (10:36)
[2024-01-22] MEDS: FAMOTIDINE 20 MG TAB GT SCH (10:45)
[2024-01-22] MEDS: PROPOFOL 100 ML IV SCH (11:30)
[2024-01-22] MEDS: fentaNYL Drip 2500mCg/250mlNS 250 ML IV ONE (11:47)
[2024-01-22] MEDS: ETOMIDATE (2MG/ML) 20ML VIAL IV ONE ×2 (11:47→11:52)
[2024-01-22] MEDS: MIDAZOLAM DRIP 50 mg/50mL 50 ML IV ONE (11:48)
[2024-01-22] MEDS: ROCURONIUM 10MG/ML 10ML VIAL IV ONE ×2 (11:48→11:52)
[2024-01-22] MEDS: fentaNYL Drip 2500mCg/250mlNS 250 ML IV SCH (12:00)
[2024-01-22] MEDS: MIDAZOLAM DRIP 50 mg/50mL 50 ML IV SCH (12:00)
[2024-01-22 12:45] LABS: Base Excess 2.5 mmol/L (-2.0-2.0)
[2024-01-22] MEDS: methylPREDNISolone SOD SUCC 125 MG/2 ML VL ONE (15:15)
[2024-01-22] MEDS: methylPREDNISolone SOD SUCC 125 MG/2 ML VL IV ONE (15:19)
[2024-01-22] MEDS: PANTOPRAZOLE 40 MG/10 ML VIAL INJ IV ONE (15:19)
[2024-01-22] MEDS: methylPREDNISolone SOD SUCC 40 MG/ML VL IV SCH (17:24)
[2024-01-22] MEDS: methylPREDNISolone SOD SUCC 40 MG/ML VL ONE (21:19)
[2024-01-23] VITALS (118 sets, daily range): BP systolic 76–146; BP diastolic 3–93; PULSE 77–123; RESP 12–24; TEMP 98.6–99.5; O2SAT 92–100
[2024-01-23 04:16] LABS: Basophils # (auto) 0 10 ^3/uL (0-0.2); Basophils % (auto) 0.1 % (0.0-2.0); Eosinophils # (auto) 0 10 ^3/uL (0-0.8); Hematocrit 34.9 % (41.0-53.0); Hemoglobin 11.5 g/dL (13.5-17.5); Lymphocytes # (auto) 0.9 10 ^3/uL (0.4-5.4); Lymphocytes % (auto) 9.2 % (10.0-50.0); Mean Corpuscular Hemoglobin 29.5 pg (28.0-32.0); Mean Corpuscular Volume 89.6 fL (80.0-100.0); Monocytes # (auto) 0.1 10 ^3/uL (0-1.3); Monocytes % (auto) 1.5 % (0.0-12.0); Neutrophils # (auto) 8.3 10 ^3/uL (1.6-8.6); Neutrophils % (auto) 89.2 % (37.0-80.0); Nucleated Red Blood Cells % 0.1 %; Red Blood Cells 3.89 10^6/uL (4.5-5.90); Red Cell Distribution Width 12.9 % (11.8-14.3); White Blood Cell 9.3 10^3/uL (4.4-10.8)
[2024-01-23 04:34] LABS: Alanine Aminotransferase 64 U/L (7-40); Alkaline Phosphatase 107 U/L (46-116); Anion Gap 6 (5-15); Aspartate Aminotransferase 62 U/L (13-40); BUN/Creatinine Ratio 27.5 (10.0-20.0); Bilirubin, Total 0.3 mg/dL (0.2-1.0); Blood Urea Nitrogen 14 mg/dL (9-23); Carbon Dioxide 31 mmol/L (20-30); Chloride 110 mmol/L (98-107); Glucose 229 mg/dL (74-106); Potassium 3.7 mmol/L (3.5-5.1); Sodium 147 mmol/L (136-145); Total Protein 7.3 g/dL (5.7-8.2)
[2024-01-23] MEDS ORDERED: BENZOCAINE (DENTAL) 20 % SPRAY 60ML MT ONE (08:52)
[2024-01-23] MEDS ORDERED: LIDOCAINE 2%HCL (LOCAL ANESTH.) INJ 20ML MDV ONE (08:53)
[2024-01-23] MEDS ORDERED: GLYCOPYRROLATE 0.2 MG/ML 1ML VIAL ONE (08:53)
[2024-01-23] MEDS ORDERED: EPINEPHrine HCL 1 MG/1 ML AMP ONE (08:53)
[2024-01-23] MEDS ORDERED: LIDOCAINE 2% JELLY 11ml (GLYDO) ONE (08:53)
[2024-01-23] MEDS ORDERED: fentaNYL CITRATE 100 MCG/2 ML VL ONE (08:54)
[2024-01-23] MEDS ORDERED: MIDAZOLAM HCL 5 MG/ML-1ML VIAL ONE (08:54)
[2024-01-23] MEDS ORDERED: NALOXONE HCL 0.4 MG/ML VIAL ONE (09:58)
[2024-01-23] MEDS ORDERED: FLUMAZENIL 0.1 MG/ML INJ 10ML MDV IV ONE (09:58)
[2024-01-23] MEDS: PANTOPRAZOLE 40 MG/10 ML VIAL INJ IV SCH (10:04)
[2024-01-23] MEDS: fentaNYL Drip 2500mCg/250mlNS 250 ML IV ONE (10:40)
[2024-01-23] MEDS ORDERED: Ensure HIGH Protein Chocolate 8oz Bottle PEG SCH (12:00)
[2024-01-23] MEDS: methylPREDNISolone SOD SUCC 40 MG/ML VL ONE (12:33)
[2024-01-23] MEDS: FREE WATER GT SCH (18:04)
[2024-01-23] MEDS: methylPREDNISolone SOD SUCC 40 MG/ML VL IV SCH (21:42)
[2024-01-24] VITALS (108 sets, daily range): BP systolic 108–152; BP diastolic 63–106; PULSE 80–126; RESP 12–44; TEMP 98.4–99.3; O2SAT 92–99
[2024-01-24 04:28] LABS: Basophils # (auto) 0 10 ^3/uL (0-0.2); Eosinophils # (auto) 0 10 ^3/uL (0-0.8); Hemoglobin 10.9 g/dL (13.5-17.5); Lymphocytes # (auto) 0.7 10 ^3/uL (0.4-5.4); Lymphocytes % (auto) 8.3 % (10.0-50.0); Mean Corpuscular Hemoglobin 29.7 pg (28.0-32.0); Monocytes # (auto) 0.2 10 ^3/uL (0-1.3); Monocytes % (auto) 2.4 % (0.0-12.0); Neutrophils # (auto) 7.5 10 ^3/uL (1.6-8.6); Neutrophils % (auto) 89.3 % (37.0-80.0); Red Blood Cells 3.67 10^6/uL (4.5-5.90); Red Cell Distribution Width 12.8 % (11.8-14.3); White Blood Cell 8.4 10^3/uL (4.4-10.8)
[2024-01-24 04:45] LABS: Alanine Aminotransferase 282 U/L (7-40); Alkaline Phosphatase 109 U/L (46-116); Anion Gap 8 (5-15); Aspartate Aminotransferase 264 U/L (13-40); BUN/Creatinine Ratio 36.2 (10.0-20.0); Blood Urea Nitrogen 17 mg/dL (9-23); Calcium 9.4 mg/dL (8.5-10.1); Carbon Dioxide 27 mmol/L (20-30); Chloride 112 mmol/L (98-107); Glucose 224 mg/dL (74-106); Potassium 3.3 mmol/L (3.5-5.1); Sodium 147 mmol/L (136-145)
[2024-01-24 04:46] LABS: Albumin 3.7 g/dL (3.2-4.8); Bilirubin, Total 0.2 mg/dL (0.2-1.0); Total Protein 6.7 g/dL (5.7-8.2)
[2024-01-24 08:50] LABS: Base Excess 2.7 mmol/L (-2.0-2.0)
[2024-01-24] MEDS: POTASSIUM EFFERVESENT TAB 25 MEQ GT ONE ×2 (12:30→12:45)
[2024-01-24] MEDS: FUROSEMIDE 20 MG/2 ML VIAL IV ONE (12:45)
[2024-01-24] MEDS: FUROSEMIDE 20 MG/2 ML VIAL ONE (13:01)
[2024-01-24] MEDS: POTASSIUM EFFERVESENT TAB 25 MEQ ONE (13:03)
[2024-01-24] MEDS: Jevity 1.2 Cal/Fiber 1 Liter GT SCH (14:29)
[2024-01-24] MEDS: TIMOLOL MAL 0.5% OPTH(EYE) SOL 5ML EACHEYE SCH (22:00)
[2024-01-24] MEDS: POTASSIUM CHL 20MEQ/100ML 100 ML IV SCH (23:04)
[2024-01-25] VITALS (46 sets, daily range): BP systolic 97–135; BP diastolic 61–94; PULSE 66–86; RESP 13–34; TEMP 97.9–99; O2SAT 85–99
[2024-01-25 03:49] LABS: Basophils # (auto) 0 10 ^3/uL (0-0.2); Basophils % (auto) 0.1 % (0.0-2.0); Eosinophils # (auto) 0 10 ^3/uL (0-0.8); Hematocrit 34.2 % (41.0-53.0); Hemoglobin 11.4 g/dL (13.5-17.5); Lymphocytes # (auto) 0.9 10 ^3/uL (0.4-5.4); Lymphocytes % (auto) 11.2 % (10.0-50.0); Mean Corpuscular Hemoglobin 29.4 pg (28.0-32.0); Mean Corpuscular Hgb Conc. 33.2 g/dL (32.0-36.0); Mean Corpuscular Volume 88.4 fL (80.0-100.0); Monocytes # (auto) 0.2 10 ^3/uL (0-1.3); Monocytes % (auto) 2.4 % (0.0-12.0); Neutrophils # (auto) 6.9 10 ^3/uL (1.6-8.6); Neutrophils % (auto) 86.3 % (37.0-80.0); Nucleated Red Blood Cells % 0.1 %; Red Blood Cells 3.87 10^6/uL (4.5-5.90); Red Cell Distribution Width 12.9 % (11.8-14.3)
[2024-01-25 04:09] LABS: Alanine Aminotransferase 287 U/L (7-40); Albumin 3.8 g/dL (3.2-4.8); Alkaline Phosphatase 113 U/L (46-116); Anion Gap 5 (5-15); Aspartate Aminotransferase 137 U/L (13-40); BUN/Creatinine Ratio 46.7 (10.0-20.0); Bilirubin, Total 0.3 mg/dL (0.2-1.0); Blood Urea Nitrogen 21 mg/dL (9-23); Carbon Dioxide 29 mmol/L (20-30); Chloride 111 mmol/L (98-107); Glucose 169 mg/dL (74-106); Sodium 145 mmol/L (136-145); Total Protein 7.2 g/dL (5.7-8.2)
[2024-01-25] MEDS: DOCUSATE ORAL LIQUID 100 MG/10 ML UD GT ONE (16:00)
[2024-01-25] MEDS: LACTULOSE 20Gm/30ML SOLN PO ONE (16:00)
[2024-01-25] MEDS: methylPREDNISolone SOD SUCC 40 MG/ML VL IV SCH (21:31)
[2024-01-26] VITALS (37 sets, daily range): BP systolic 91–130; BP diastolic 55–82; PULSE 66–85; RESP 12–37; TEMP 97.9–98.2; O2SAT 67–99
[2024-01-26 04:52] LABS: Basophils # (auto) 0 10 ^3/uL (0-0.2); Basophils % (auto) 0.3 % (0.0-2.0); Eosinophils # (auto) 0 10 ^3/uL (0-0.8); Eosinophils % (auto) 0.1 % (0.0-7.0); Hematocrit 37.3 % (41.0-53.0); Hemoglobin 12.1 g/dL (13.5-17.5); Lymphocytes # (auto) 1.2 10 ^3/uL (0.4-5.4); Lymphocytes % (auto) 14.7 % (10.0-50.0); Mean Corpuscular Hemoglobin 29.3 pg (28.0-32.0); Mean Corpuscular Hgb Conc. 32.4 g/dL (32.0-36.0); Mean Corpuscular Volume 90.4 fL (80.0-100.0); Monocytes # (auto) 0.4 10 ^3/uL (0-1.3); Monocytes % (auto) 5.1 % (0.0-12.0); Neutrophils # (auto) 6.3 10 ^3/uL (1.6-8.6); Neutrophils % (auto) 79.8 % (37.0-80.0); Nucleated Red Blood Cells % 0.1 %; Red Blood Cells 4.13 10^6/uL (4.5-5.90); Red Cell Distribution Width 12.7 % (11.8-14.3); White Blood Cell 7.9 10^3/uL (4.4-10.8)
[2024-01-26 05:11] LABS: Alanine Aminotransferase 232 U/L (7-40); Albumin 3.9 g/dL (3.2-4.8); Alkaline Phosphatase 112 U/L (46-116); Anion Gap 6 (5-15); Aspartate Aminotransferase 76 U/L (13-40); BUN/Creatinine Ratio 40.8 (10.0-20.0); Blood Urea Nitrogen 20 mg/dL (9-23); Calcium 10.2 mg/dL (8.7-10.4); Carbon Dioxide 27 mmol/L (20-30); Chloride 111 mmol/L (98-107); Glucose 217 mg/dL (74-106); Potassium 4.5 mmol/L (3.5-5.1); Sodium 144 mmol/L (136-145)
[2024-01-26 05:12] LABS: Bilirubin, Total 0.3 mg/dL (0.2-1.0); Total Protein 7.5 g/dL (5.7-8.2)
[2024-01-26] MEDS: LACTULOSE 20Gm/30ML SOLN GT SCH (21:33)
[2024-01-26] MEDS: DOXYCYCLINE 100 MG TAB/CAP PO SCH (21:33)
[2024-01-27] VITALS (19 sets, daily range): BP systolic 100–142; BP diastolic 65–90; PULSE 65–81; RESP 11–30; TEMP 36.4; O2SAT 94–99
[2024-01-27] MEDS: POLYETHYLENE GLYCOL 17 GM PWDR PO SCH (00:07)
[2024-01-27 04:56] LABS: Basophils # (auto) 0 10 ^3/uL (0-0.2); Basophils % (auto) 0.3 % (0.0-2.0); Eosinophils # (auto) 0 10 ^3/uL (0-0.8); Eosinophils % (auto) 0.6 % (0.0-7.0); Hematocrit 38.2 % (41.0-53.0); Hemoglobin 12.5 g/dL (13.5-17.5); Lymphocytes # (auto) 1.9 10 ^3/uL (0.4-5.4); Lymphocytes % (auto) 24.3 % (10.0-50.0); Mean Corpuscular Hemoglobin 29.2 pg (28.0-32.0); Mean Corpuscular Hgb Conc. 32.6 g/dL (32.0-36.0); Mean Corpuscular Volume 89.6 fL (80.0-100.0); Monocytes # (auto) 0.6 10 ^3/uL (0-1.3); Monocytes % (auto) 7.1 % (0.0-12.0); Neutrophils # (auto) 5.4 10 ^3/uL (1.6-8.6); Neutrophils % (auto) 67.7 % (37.0-80.0); Red Blood Cells 4.27 10^6/uL (4.5-5.90); Red Cell Distribution Width 12.9 % (11.8-14.3)
[2024-01-27 05:01] LABS: Anion Gap 6 (5-15); Calcium 10.1 mg/dL (8.7-10.4); Carbon Dioxide 28 mmol/L (20-30); Chloride 111 mmol/L (98-107); Potassium 3.8 mmol/L (3.5-5.1); Sodium 145 mmol/L (136-145)
[2024-01-27 05:07] LABS: Blood Urea Nitrogen 20 mg/dL (9-23); Glucose 132 mg/dL (74-106)
[2024-01-27] MEDS: predniSONE 20 MG TAB PO SCH (10:16)
[2024-01-27] MEDS ORDERED: FIN5T GT (10:42)
[2024-01-27] MEDS ORDERED: PRED20TA2 PO (10:42)
[2024-01-27] MEDS ORDERED: DOX100T PO (10:42)
[2024-01-27] MEDS: BISACODYL 5 MG EC TAB PO ONE (10:45)
[2024-01-27] MEDS: LACTULOSE 20Gm/30ML SOLN PEG ONE (10:45)
== END 2024-01-27 15:00 | disposition home or self-care (01) | DRG 871 ==
LOC: ER 20:21 → EDBD 20:21 → TELE 01-15 01:53 → TELE-WESTW 01-16 10:21 → DOU IN ICU 01-19 10:18 → ICU CENTRL 01-19 17:47 → ICU WEST 01-22 15:58 → DOU IN ICU 01-25 16:58
PROVIDERS: ADMIT Family Medicine; ATTEND Internal Medicine
PROC: 5A09357 Assistance with Respiratory Ventilation, Less than 24 Consecutive Hours, Continuous Positive Airway Pressure (ICD-10-PCS; 2024-01-19)
PROC: 5A09357 Assistance with Respiratory Ventilation, Less than 24 Consecutive Hours, Continuous Positive Airway Pressure (ICD-10-PCS; 2024-01-20)
PROC: 5A09357 Assistance with Respiratory Ventilation, Less than 24 Consecutive Hours, Continuous Positive Airway Pressure (ICD-10-PCS; 2024-01-21)
PROC: 02HV33Z Insertion of Infusion Device into Superior Vena Cava, Percutaneous Approach (ICD-10-PCS; 2024-01-21)
PROC: B548ZZA Ultrasonography of Superior Vena Cava, Guidance (ICD-10-PCS; 2024-01-21)
PROC: 5A1945Z Respiratory Ventilation, 24-96 Consecutive Hours (ICD-10-PCS; 2024-01-22)
PROC: 0BH17EZ Insertion of Endotracheal Airway into Trachea, Via Natural or Artificial Opening (ICD-10-PCS; 2024-01-22)
PROC: 5A09357 Assistance with Respiratory Ventilation, Less than 24 Consecutive Hours, Continuous Positive Airway Pressure (ICD-10-PCS; 2024-01-22)
PROC: 0B968ZZ Drainage of Right Lower Lobe Bronchus, Via Natural or Artificial Opening Endoscopic (ICD-10-PCS; 2024-01-23)
PROC: 0B9B8ZZ Drainage of Left Lower Lobe Bronchus, Via Natural or Artificial Opening Endoscopic (ICD-10-PCS; principal; 2024-01-23 09:45)
PROC: 5A09357 Assistance with Respiratory Ventilation, Less than 24 Consecutive Hours, Continuous Positive Airway Pressure (ICD-10-PCS; 2024-01-25)
PROC: 5A09357 Assistance with Respiratory Ventilation, Less than 24 Consecutive Hours, Continuous Positive Airway Pressure (ICD-10-PCS; 2024-01-26)
PROC: 5A09357 Assistance with Respiratory Ventilation, Less than 24 Consecutive Hours, Continuous Positive Airway Pressure (ICD-10-PCS; 2024-01-27)
DX: A41.9 Sepsis, unspecified organism (principal); G93.41 Metabolic encephalopathy; I50.33 Acute on chronic diastolic (congestive) heart failure; J69.0 Pneumonitis due to inhalation of food and vomit; R65.21 Severe sepsis with septic shock; J96.20 Acute and chronic respiratory failure, unspecified whether with hypoxia or hypercapnia; J18.9 Pneumonia, unspecified organism; N39.0 Urinary tract infection, site not specified; E87.1 Hypo-osmolality and hyponatremia; J44.1 Chronic obstructive pulmonary disease with (acute) exacerbation; I13.0 Hypertensive heart and chronic kidney disease with heart failure and stage 1 through stage 4 chronic kidney disease, or unspecified chronic kidney disease; J44.0 Chronic obstructive pulmonary disease with (acute) lower respiratory infection; E87.29 Other acidosis; G93.1 Anoxic brain damage, not elsewhere classified; I95.9 Hypotension, unspecified; Z20.822 Contact with and (suspected) exposure to COVID-19; E11.22 Type 2 diabetes mellitus with diabetic chronic kidney disease; E78.5 Hyperlipidemia, unspecified; N18.9 Chronic kidney disease, unspecified; F17.210 Nicotine dependence, cigarettes, uncomplicated; Z93.1 Gastrostomy status; I48.91 Unspecified atrial fibrillation; K59.00 Constipation, unspecified; G40.909 Epilepsy, unspecified, not intractable, without status epilepticus; F44.4 Conversion disorder with motor symptom or deficit; Z90.49 Acquired absence of other specified parts of digestive tract; Z88.1 Allergy status to other antibiotic agents; Z82.49 Family history of ischemic heart disease and other diseases of the circulatory system; Z80.9 Family history of malignant neoplasm, unspecified; Z87.11 Personal history of peptic ulcer disease; Z74.01 Bed confinement status; Z79.899 Other long term (current) drug therapy; Z79.82 Long term (current) use of aspirin; Z98.2 Presence of cerebrospinal fluid drainage device; N40.1 Benign prostatic hyperplasia with lower urinary tract symptoms
CPT/HCPCS: 31645; 36415; 36569; 36600; 70450; 71045; 80048; 80053; 80202; 80307; 80320; 81001; 82565; 82805; 82962; 83605; 83880; 84132; 84484; 85025; 85610; 85730; 87040; 87070; 87081; 87086; 87205; 87426; 87804; 93005; 93306; 94002; 94003; 94640; 94660; 94667; 94668; 96365; 96368; 97163; 99291; C9113; G0378; J0171; J1335; J1815; J1956; J2185; J2250; J3480

== ENCOUNTER 2024-11-15 09:14 | Day surgery (SDC) | payer OTHER, MEDICAID ==
[2024-11-14 15:39] LABS: Urine Bacteria None Seen /hpf (None Seen)
[2024-11-14 15:42] LABS: Basophils # (auto) 0 10 ^3/uL (0-0.2); Basophils % (auto) 0.5 % (0.0-2.0); Eosinophils # (auto) 0.2 10 ^3/uL (0-0.8); Eosinophils % (auto) 2.9 % (0.0-7.0); Hematocrit 37.1 % (41.0-53.0); Hemoglobin 12.8 g/dL (13.5-17.5); Lymphocytes # (auto) 2.1 10 ^3/uL (0.4-5.4); Lymphocytes % (auto) 39.2 % (10.0-50.0); Mean Corpuscular Hemoglobin 31.3 pg (28.0-32.0); Mean Corpuscular Hgb Conc. 34.4 g/dL (32.0-36.0); Monocytes # (auto) 0.5 10 ^3/uL (0-1.3); Monocytes % (auto) 8.7 % (0.0-12.0); Neutrophils # (auto) 2.6 10 ^3/uL (1.6-8.6); Neutrophils % (auto) 48.7 % (37.0-80.0); Platelet Count (auto) 235 10^3/uL (140-450); Red Blood Cells 4.08 10^6/uL (4.5-5.90); Red Cell Distribution Width 12.9 % (11.8-14.3); White Blood Cell 5.4 10^3/uL (4.4-10.8)
[2024-11-14 16:07] LABS: INR 1.02 (0.9-1.15); Partial Thromboplastin Time 31.1 SEC (24.5-34.5); Prothrombin Time 10.8 sec (9.3-11.8)
[2024-11-14 16:27] LABS: Urine Blood Negative /uL (Negative); Urine Clarity Clear (Clear); Urine Color Colorless (Yellow); Urine Protein, UAD Negative (Negative); Urine Specific Gravity 1.005 (1.001-1.035); Urine Squamous Epithelial Cell None Seen /hpf (<5); Urine Urobilinogen Normal (Negative); Urine WBC 13 /HPF (0-3); Urine pH 7.5 (5.0-9.0)
[2024-11-14 16:40] LABS: Alanine Aminotransferase 14 U/L (7-40); Albumin 4.7 g/dL (3.2-4.8); Alkaline Phosphatase 103 U/L (46-116); Anion Gap 4 (5-15); Aspartate Aminotransferase 18 U/L (13-40); BUN/Creatinine Ratio 19.4 (10.0-20.0); Blood Urea Nitrogen 13 mg/dL (9-23); Glucose 89 mg/dL (74-106); Potassium 4.2 mmol/L (3.5-5.1); Sodium 137 mmol/L (136-145)
[2024-11-14 16:42] LABS: Bilirubin, Total 0.3 mg/dL (0.2-1.0); Calcium 11.1 mg/dL (8.7-10.4); Carbon Dioxide 37 mmol/L (20-31); Chloride 96 mmol/L (98-107)
[~2024-11-15] VITALS: Ht 160 cm; Wt 59.9 kg
[~2024-11-15 09:14] MED LIST changes: +ACET-1881 PO; -ALBU2TAB11 PO; +ALEN35TA18 PO; -ASPI325T6 PO; +ASPI81CH74 PO; +AZIT500T66 PO; +BUDE0.5S; +CHOL500023 PO; -CYA100I PO; +CYAN1TAB11 PO; -DEXT1SYP9 PO; +DICL2SOL EX; -DOCU-265 PO; +FIN5T GT; -FLUT0.05 NAS; -GUAI400T44 PO; -IBUP-1454 PO; +IPRA0.00 IN; -IPRIH IN; -LEVE500T40 PO; -LEVO500T91 PO; -LINA1CAP2 PO; +MELO7.5T7 PO; +MUPI2CRE17 EX; +NIAC500T89 PO; +OMEG1400 PO; +OXYB5TAB14 PO; -TAMS0.4C36 PO; +TAMS0.4C39 PO; +TIMO0.5S28 EACHEYE; +[UNRECOGNIZED DRUG - CODE] PO; -[UNRECOGNIZED DRUG - CODE] TOP
[2024-11-15] MEDS ORDERED: PROPOFOL 10 MG/ML 20 ML IV ONE (11:13)
[2024-11-15] MEDS ORDERED: fentaNYL CITRATE 100 MCG/2 ML VL ONE (11:13)
[2024-11-15 11:23] VITALS: TEMP 98.1; O2SAT 100
--- NOTE | 2024-11-15 11:32 | DVHHP2 ---
GI H&P Pre-Op Assessment Date: 11/15/24 Chief complaint: PEG malfunction HPI: per clinic note Past medical history: per clinic note Past surgical history: per clinic note Family history: per clinic note Physical exam: General: NAD, AAOX3 HEENT: PERRL, no scleral icterus, normal hearing, gums without lesions or bl eeding, oropharynx clear without erythema or exudate. Neck: Supple without enlargement of the thyroid, or lymphadenopathy. Chest: Normal size and shape, no tenderness, lung urbina clear to auscultation and percussion, nonlabored breathing. Heart: RRR, no murmur Abdomen: non-distended, no tenderness to palpation, +BS, no hepatosplenomegaly, PEG in LUQ Extremities: no edema Neurological: unable to move extremities Skin: No rashes, No jaundice Assessment: - PEG malfunction Plan: - EGD - Risks (bleeding, infection, perforation, reaction to sedation medications and cardiopulmonary arrest) and benefit of the procedure were explained to patient. Patient agrees to undergo the procedure. DOROTA MELGAR MD Nov 15, 2024 11:32
--- NOTE | 2024-11-15 11:36 | DVHOP2 ---
Operative Report DATE OF OPERATION: 11/15/24 PROCEDURE: Upper Endoscopy. PREOPERATIVE INDICATION: The patient is a 54 -year-old male undergoing endoscopy for PEG malfunction. POSTOPERATIVE DIAGNOSES: 1. Gastritis 2. The old PEG was removed and a new 24 Fr replacement PEG was inserted. PROCEDURE PERFORMED BY: Donn Samuel SCOPE: Olympus videoendoscope. ASA CLASS: 3 PREOPERATIVE MEDICATIONS: MAC with Dr Meza PROCEDURE IN DETAIL: After obtaining an informed consent, the patient was placed on left lateral decubitus position. The patient was then sedated with the above medications. A bite block was placed between his teeth. The endoscope was then passed through the oropharynx, into the esophagus, and through the stomach and pylorus up to the second and third part of the duodenum. The duodenum was normal in appearance. There was gastritis. Gastric biopsies were obtained. The old PEG was removed by cutting the tube. The interior bumper was removed using a Covarrubias net as the endoscope was removed. A new 24 Fr replacement PEG was then inserted. The placement of the new tube was confirmed with direct visualization with the endoscope. The esophagus was normal in appearance. The endoscope was then withdrawn. The patient tolerated the procedure well without difficulty. COMPLICATIONS : None SPECIMENS: Gastric biopsies DISPOSITION: D/C to home PLAN: 1. Await for biopsy result 2. Pt can use the PEG for nutrition and medications. DONN SAMUEL MD Nov 15, 2024 11:36
--- NOTE | 2024-11-15 11:37 | DVHDS2 ---
Physician Discharge Progress N Final Diagnosis: gastritis, malfunction PEG Operations or Procedures: Operations or Procedures EGD with biopsy and PEG change Condition on Discharge: Good Disposition: Home Discharge Instructions: Diet: Regular Activity: No Restrictions, As Tolerated Medications: resume previous home medications Follow Up Care: Discharge Statement: "Patient was advised to return to the ER or call 911 if any headaches, dizziness, shortness of breath, chest pain, abdominal pain, bleeding, fevers, or worsening of medical condition. Patient was counseled about treatment plan, medications, possible side effects, patientverbalized understanding. All questions were answered to the best of my ability. This discharge took greater then 30 minutes in planning, reviewing documentation, counseling the patient, and discussing with other team members." DOROTA MELGAR MD Nov 15, 2024 11:37
[2024-11-15 11:38] VITALS: BP 99/61; PULSE 66; RESP 15; O2SAT 97
== END 2024-11-15 12:04 | disposition home or self-care (01) ==
LOC: GI 09:14
PROVIDERS: ATTEND Internal Medicine Gastroenterology
DX: K94.23 Gastrostomy malfunction (principal); K29.50 Unspecified chronic gastritis without bleeding; G47.30 Sleep apnea, unspecified; K59.00 Constipation, unspecified; G40.909 Epilepsy, unspecified, not intractable, without status epilepticus; N40.0 Benign prostatic hyperplasia without lower urinary tract symptoms; Z98.2 Presence of cerebrospinal fluid drainage device; Z87.442 Personal history of urinary calculi; Z98.890 Other specified postprocedural states; Z87.891 Personal history of nicotine dependence; Z88.8 Allergy status to other drugs, medicaments and biological substances; Z79.899 Other long term (current) drug therapy
CPT/HCPCS: 36415; 43239; 43246; 80053; 81001; 82962; 85025; 85610; 85730; 88305; 88312; 88342; J2704; J3010; J7030

== ENCOUNTER 2025-02-11 02:02 | Inpatient (IN) | payer OTHER, MEDICAID ==
[2025-02-11] VITALS (8 sets, daily range): BP systolic 86–95; BP diastolic 45–54; PULSE 81–106; RESP 11–20; TEMP 98; O2SAT 94–100
[~2025-02-11] VITALS: Ht 167.6 cm; Wt 68.1 kg
--- NOTE | 2025-02-11 02:20 | ED.PDOC ---
General HPI Comments 54 y/o M is BIBA for c/o blood in his urine, with associated suprapubic abdominal pain, for 1 day. Patient is reported to have been producing blood since yesterday morning, with an estimated 20ml production. Patient is stated to have an extensive medical history, including frequent UTI's and BPH. Patient denies any nausea, vomiting, fever, chills, or other associated symptoms or modifiers. Chief Complaint: Urinary Time Seen by MD: 02:10 Primary Care Provider: LANNY Reviewed notes: Nurses Notes, Bandage Maker Notes, Medications, Allergies Allergies: Coded Allergies: Ceftriaxone (Verified Allergy, Unknown, 08/22/23) Home Meds Active Scripts Cefdinir (Cefdinir) 300 Mg Cap, 1 CAP PO BID for 10 Days, #20 CAP Prov:GILMAR SAGE MD 02/11/25 Finasteride (Finasteride) 5 Mg Tab, 5 MG GT DAILY for 30 Days, #30 TAB 3 Refills Prov:GABRIELLE BOLAÑOS MD 01/27/24 Potassium Chloride (Klor-Con M20) 20 Meq Tab, 20 MEQ PO DAILY for 30 Days, #30 TAB 3 Refills Prov:GABRIELLE BOLAÑOS MD 08/24/23 Furosemide (Lasix) 40 Mg Tab, 40 MG PO QAM for 30 Days, #30 TAB 3 Refills Prov:GABRIELLE BOLAÑOS MD 08/24/23 Lactulose (Lactulose) 10 Gm/15 Ml Haley, 10 GM PO TID PRN for 30 Days, #120 ML 3 Refills Prov:GABRIELLE BOLAÑOS MD 08/09/23 Levetiracetam (Keppra) 100 Mg/Ml Haley, 500 MG PO BID for 30 Days, #120 ML 3 Refills Prov:GABRIELLE BOLAÑOS MD 08/09/23 Albuterol Sulfate (VENTOLIN MDI) 90 Mcg Ih, 90 MCG IN Q4HPRN PRN, #1 INHALER Prov:ANGELLA VALADEZ MD 06/30/20 Reported Medications Lidocaine (Ztlido) 1.8 % Pad, 1.8 % EX, PAD 11/14/24 Azithromycin (Azithromycin) 500 Mg Tab, 500 MG PO DAILY 11/14/24 Budesonide (Inhalation) (Budesonide) 0.5 Mg/2 Ml Nika, 0.5 MG, ML 11/14/24 Meloxicam (Meloxicam) 7.5 Mg Tab, 1 TAB PO DAILY, #30 TAB 2 Refills 11/14/24 Alendronate Sodium (Alendronate Sodium) 35 Mg Tab, 1 TAB PO QWEEKLY, #4 TAB 11 Refills 11/14/24 [place]-3 Fatty Acids ([place]-3) Unknown Strength Cap, PO, CAP 11/14/24 Oxybutynin Chloride (Oxybutynin Chloride) 5 Mg Tab, 5 MG PO, TAB 11/14/24 Baclofen (Baclofen) 10 Mg/5 Ml Haley, 10 MG PO, ML 11/14/24 Mupirocin Calcium (Topical) (MUPIROCIN) 2 % Cre, 2 % EX, CRE 11/14/24 Acetaminophen (Acetaminophen) 325 Mg Tab, 500 MG PO Q6HP PRN for MILD PAIN for 30 Days, MG 0 Refills 11/14/24 Timolol Maleate (Timolol Maleate Ophthalmi) Unknown Strength Haley, ELKEE QAM, #5 ML 5 Refills 11/14/24 Diclofenac Sodium (Topical) (Diclofenac Sodium) 2 % Haley, 3 % EX, ML 11/14/24 Cholecalciferol (VITAMIN D3) 5,000 Unit Tab, 5000 UNIT PO DAILY, TAB 01/16/24 Niacin (NIACIN ER) 500 Mg Tab, 500 MG PO DAILY, TAB 01/16/24 Ipratropium-Albuterol (Ipratropium Clayton/Albut) 1 Haley Haley, 1 HALEY IN Q4HPRN PRN for SHORTNESS OF BREATH, ML 01/16/24 Aspirin (Aspirin 81 Low Dose) 81 Mg Chw, 81 MG PO DAILY 01/16/24 Cyanocobalamin (Vitamin B12) 1,000 Mcg Tab, 1000 MCG PO DAILY, TAB 01/16/24 Pantoprazole Sodium (PANTOPRAZOLE SODIUM) 40 Mg Inj, 40 MG, INJ 08/22/23 Clotrimazole (Clotrimazole) 1 % Cre, 1 APPLIC TOP Q12HR for 30 Days, APPLIC 08/22/23 Magnesium Oxide (MAGNESIUM OXIDE) 400 Mg Tab, 1 TAB PO DAILY, #30 TAB 5 Refills 08/08/23 Zinc W/ Vitamin C (Vitamin C+Zinc 15-60 mg) 1 Tab Tab, 1 TAB PO DAILY, TAB 08/08/23 Hydrocodone-Acetaminophen (Hydrocodone Bitartrate/AC 10-325 mg) 1 Tab Tab, 1 TAB PO BID PRN for PAIN SCALE 7 THRU 10, TAB 08/08/23 Pravastatin Sodium (PRAVACHOL TABLET) 20 Mg Tb, 10 TAB PO DAILY, #30 TAB 5 Refills 08/08/23 Folic Acid (Folic Acid) 1 Mg Tab, 1 MG PO DAILY for 30 Days, MG 08/08/23 Tamsulosin Hcl (Tamsulosin Hcl) 0.4 Mg Cap, 0.4 MG PO QPM for 30 Days, MG 02/05/22 Information Source: Patient, Emergency Med Personnel Mode of Arrival: EMS Severity: Moderate Inability to void: None Timing: Hours Duration: Since onset Prehospital treatment: 12 Lead EKG, Racebook Writer Onset: Spontaneous Symptoms: Hematuria, Other (suprapubic abdominal pain ) History of: UTI Past Medical History PAST MEDICAL HISTORY: AFIB, CKF, COPD (w/2LPM home O2 ), DM, High Lipids, HTN, PUD, Seizures Past Medical History (Other): PNA Septick shock 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 BPH Acute on chronic respiratory failure Surgical History: Cholecystectomy Family History Family History: Unknown Social History Smoker: Cigarettes, Less Than 1 Pack/Day Alcohol: Denies ETOH Use Drugs: Denies Drug Use Lives In: Home All Other Systems: Reviewed and Negative (as per HPI) Physical Exam General Appearance: No Apparent Distress, Normal HEENT: Normal ENT Inspection, Pharynx Normal, TMs Normal Neck: Full Range of Motion, Non-Tender, Normal, Normal Inspection Respiratory: Chest Non-Tender, Lungs Clear, No Accessory Muscle Use, No Respiratory Distress, Normal Breath Sounds Cardiovascular: No Edema, No JVD, No Murmur, No Gallop, Normal Peripheral P ulses, Regular Rate/Rhythm Breast Exam: Deferred Gastrointestinal: No Organomegaly, No Pulsatile Mass, Normal Bowel Sounds, Soft, Suprapubic (mild tenderness ), Tenderness (mild ) Genitalia: Deferred Pelvic: Deferred Rectal: Deferred Extremities: No calf tenderness, Normal capillary refill, Normal inspection, Normal range of motion, Non-tender, No pedal edema Musculoskeletal : Apperance: Normal Neurologic: Alert, front end specialist II-XII nml as Tested, No Motor Deficits, Normal Affect, Normal Mood, No Sensory Deficits Cerebellar Function: Normal Reflexes: Normal Skin: Dry, Normal Color, Warm Lymphatic: No Adenopathy Was a procedure done? Was a procedure done?: No Differential Diagnosis Kidney stone (Female): N/A Kidney stone (Male): N/A Penile/Scrotal: N/A Urinary Problem (Male): Epididymitis, Plelonephritis, Urethritis, Urolithiasis, UTI, Other (Nephrolithiasis ) Urinary Problem (Female): N/A X-Ray, Labs, Meds, VS Vital Signs Date Time Temp Pulse Resp B/P (MAP) Pulse Ox O2 Delivery O2 Flow Rate FiO2 02/11/25 04:09 83 16 106/71 02/11/25 02:10 98.0 103 18 114/76 (89) 94 98.0 Lab Test 02/11/25 02:27 Range/Units White Blood Count 7.6 4.4-10.8 10^3/uL Red Blood Count 4.21 L 4.5-5.90 10^6/uL Hemoglobin 13.1 L 13.5-17.5 g/dL Hematocrit 37.5 L 41.0-53.0 % Mean Corpuscular Volume 89.1 80.0-100.0 fL Mean Corpuscular Hemoglobin 31.1 28.0-32.0 pg Mean Corpuscular Hemoglobin Concent 34.9 32.0-36.0 g/dL Red Cell Distribution Width 12.6 11.8-14.3 % Platelet Count 236 140-450 10^3/uL Mean Platelet Volume 7.6 6.9-10.8 fL Neutrophils (%) (Auto) 61.1 37.0-80.0 % Lymphocytes (%) (Auto) 24.9 10.0-50.0 % Monocytes (%) (Auto) 10.6 0.0-12.0 % Eosinophils (%) (Auto) 2.4 0.0-7.0 % Basophils (%) (Auto) 1.0 0.0-2.0 % Neutrophils # (Auto) 4.6 1.6-8.6 10 ^3/uL Lymphocytes # (Auto) 1.9 0.4-5.4 10 ^3/uL Monocytes # (Auto) 0.8 0-1.3 10 ^3/uL Eosinophils # (Auto) 0.2 0-0.8 10 ^3/uL Basophils # (Auto) 0.1 0-0.2 10 ^3/uL Nucleated Red Blood Cells 0.3 % Prothrombin Time 10.7 9.3-11.8 sec Prothrombin Time INR 1.01 0.9-1.15 Activated Partial Thromboplast Time 31.8 24.5-34.5 SEC Sodium Level 132 L 136-145 mmol/L Potassium Level 3.9 3.5-5.1 mmol/L Chloride Level 96 L 98-107 mmol/L Carbon Dioxide Level 30 20-31 mmol/L Anion Gap 6 5-15 Blood Urea Nitrogen 13 9-23 mg/dL Creatinine 0.60 L 0.700-1.30 mg/dL Glomerular Filtration Rate Calc 113 >90 mL/min BUN/Creatinine Ratio 21.7 H 10.0-20.0 Serum Glucose 113 H 74-106 mg/dL Calcium Level 10.7 H 8.7-10.4 mg/dL Total Bilirubin 0.2 0.2-1.0 mg/dL Aspartate Amino Transferase (AST) 17 13-40 U/L Alanine Aminotransferase (ALT) 13 7-40 U/L Alkaline Phosphatase 106 46-116 U/L Total Protein 8.2 5.7-8.2 g/dL Albumin 4.8 3.2-4.8 g/dL Current Medications Medications (Trade) Dose Ordered Sig/Ezequiel Route Start Time Stop Time Status Last Admin Ceftriaxone Sodium 50 ml @ 100 mls/hr ONCE ONCE IV 02/11/25 03:45 02/11/25 04:14 DC 02/11/25 04:09 Morphine Sulfate 4 mg ONCE ONCE IV 02/11/25 03:45 02/11/25 03:46 DC 02/11/25 04:09 Ondansetron HCl (Zofran) 4 mg ONCE ONCE IV 02/11/25 03:45 02/11/25 03:46 DC 02/11/25 04:10 Time of 1ST Reevaluation: 02:40 Reevaluation 1ST: Unchanged Patient Education/Counseling: Diagnosis, Treatment Family Education/Counseling: No Family Present Departure 1 Departure Time of Disposition: 04:47 Impression: Primary Impression: Renal mass Additional Impressions: Complex renal cyst Hematuria Disposition: 09 ADMITTED INPATIENT Condition: Guarded e-Prescriptions Cefdinir (Cefdinir) 300 Mg Cap 1 CAP PO BID for 10 Days, #20 CAP Prov: GILMAR SAGE MD 02/11/25 Discharged With: Relative, Spouse Comments Hematuria with Known Complex Renal Cyst Chief Complaint: Hematuria History of Present Illness: 54-year-old male with known history of complex right renal cyst, anemia, and renal insufficiency presents to the ED with complaints of hematuria for the past one day. Family members note decreased urine output tonight. Patient required Montague catheter placement in the ED with subsequent bladder irrigation due to mc hematuria. Review of Systems: Genitourinary: Positive for hematuria and decreased urine output All other systems reviewed and negative Lab Results: Hemoglobin: 13 g/dL Hematocrit: 38% BUN: 13 mg/dL Creatinine: 0.6 mg/dL Sodium: 132 mEq/L (mild hyponatremia) Urinalysis: Positive for mc blood, no signs of infection Imaging and Other Relevant Results: No acute imaging results documented Medical Decision Making: Summary Statement: 54-year-old male with known complex right renal cyst presenting with acute onset mc hematuria and decreased urine output requiring bladder irrigation. Problem List: 1. Acute hematuria 2. Complex right renal cyst 3. Decreased urine output 4. Mild hyponatremia Differential Diagnosis: 1. Bleeding from known renal cyst 2. Urinary tract malignancy 3. Nephrolithiasis 4. Urinary tract infection 5. Coagulopathy ED Course: Patient presented with mc hematuria. Montague catheter placed and bladder irrigation initiated. Labs revealed stable hemoglobin/hematocrit, normal renal function, and mild hyponatremia. Urinalysis showed mc blood without infection. Assessment and Plan: 1. Acute Hematuria with Known Complex Renal Cyst: - Admit to hospital for further evaluation - Urology consultation requested - Continue bladder irrigation - Monitor urine output and hemoglobin 2. Mild Hyponatremia: - Monitor sodium levels - Further evaluation during admission Billing Information: ICD-10: R31.0 - Gross hematuria ICD-10: N28.1 - Cyst of kidney, acquired ICD-10: E87.1 - Hypo-osmolality and hyponatremia Critical Care Note Critical Care Time?: No Stability Stability form required: No Heart Score Heart Score: Heart Score Response (Comments) Value History N/A 0 EKG N/A 0 Age N/A 0 Risk Factors N/A 0 Troponin N/A 0 Total 0 I personally scribed for GILMAR SAGE MD ([email or web address]) on 02/11/25 at 02:20. Electronically submitted by Eh Magdaleno ([email or web address]). GILMAR SAGE MD Feb 11, 2025 02:20
[2025-02-11 02:45] LABS: Basophils # (auto) 0.1 10 ^3/uL (0-0.2); Eosinophils # (auto) 0.2 10 ^3/uL (0-0.8); Eosinophils % (auto) 2.4 % (0.0-7.0); Hematocrit 37.5 % (41.0-53.0); Hemoglobin 13.1 g/dL (13.5-17.5); Lymphocytes # (auto) 1.9 10 ^3/uL (0.4-5.4); Lymphocytes % (auto) 24.9 % (10.0-50.0); Mean Corpuscular Hemoglobin 31.1 pg (28.0-32.0); Mean Corpuscular Hgb Conc. 34.9 g/dL (32.0-36.0); Mean Corpuscular Volume 89.1 fL (80.0-100.0); Monocytes # (auto) 0.8 10 ^3/uL (0-1.3); Monocytes % (auto) 10.6 % (0.0-12.0); Neutrophils # (auto) 4.6 10 ^3/uL (1.6-8.6); Neutrophils % (auto) 61.1 % (37.0-80.0); Nucleated Red Blood Cells % 0.3 %; Platelet Count (auto) 236 10^3/uL (140-450); Red Blood Cells 4.21 10^6/uL (4.5-5.90); Red Cell Distribution Width 12.6 % (11.8-14.3); White Blood Cell 7.6 10^3/uL (4.4-10.8)
[2025-02-11 03:00] LABS: INR 1.01 (0.9-1.15); Partial Thromboplastin Time 31.8 SEC (24.5-34.5); Prothrombin Time 10.7 sec (9.3-11.8)
[2025-02-11 03:06] LABS: Alanine Aminotransferase 13 U/L (7-40); Alkaline Phosphatase 106 U/L (46-116); Anion Gap 6 (5-15); Aspartate Aminotransferase 17 U/L (13-40); BUN/Creatinine Ratio 21.7 (10.0-20.0); Blood Urea Nitrogen 13 mg/dL (9-23); Carbon Dioxide 30 mmol/L (20-31); Potassium 3.9 mmol/L (3.5-5.1); Total Protein 8.2 g/dL (5.7-8.2)
[2025-02-11 03:22] LABS: Albumin 4.8 g/dL (3.2-4.8); Bilirubin, Total 0.2 mg/dL (0.2-1.0); Calcium 10.7 mg/dL (8.7-10.4); Chloride 96 mmol/L (98-107); Glucose 113 mg/dL (74-106); Sodium 132 mmol/L (136-145)
[2025-02-11] MEDS ORDERED: CEFD300C2 PO (03:35)
[2025-02-11] MEDS: MORPHINE SULFATE 4 MG/ML SYR/VIAL IV ONE (04:09)
[2025-02-11] MEDS: cefTRIAXone 1GM/50ML D5W 50 ML IV ONE (04:09)
[2025-02-11] MEDS: ONDANSETRON HCL 4 MG/2 ML VIAL IV ONE (04:10)
[2025-02-11] MEDS ORDERED: ONDANSETRON HCL 4 MG/2 ML VIAL IV PRN (05:15)
--- NOTE | 2025-02-11 05:19 | DVHHP2 ---
History of Present Illness Reason for Visit: Hematuria History of Present Illness 54-year-old male presents for evaluation of hematuria. Per the patient's patient had decreased urine output for the past couple of days. She states that yesterday she noticed mc blood in the patient's diaper. No complaints of abdominal pain. No fever or chills. No other acute complaints. Past Medical History COPD, AFib, hypertension, seizures, neurocysticercosis, BPH Past Surgical History Cholecystectomy, peg tube, penile implant Family History Noncontributory Smoke: No ALCOHOL: none Drugs: None Lives: with Family Review of Systems Review of Systems Review of systems are currently negative otherwise addressed in HPI. Allergies: Coded Allergies: Ceftriaxone (Verified Allergy, Unknown, 08/22/23) Exam Vital Signs Vital Signs Date Time Temp Pulse Resp B/P (MAP) Pulse Ox O2 Delivery O2 Flow Rate FiO2 02/11/25 04:09 83 16 106/71 02/11/25 02:10 98.0 94 98.0 Exam Gen: 54-year-old male in mild distress Skin: Warm, dry, normal color and texture, no rash. HEENT: Normocephalic atraumatic, mucous membranes moist and pink. Neck: Cervical and supraclavicular nodes normal without enlargement, trachea is midline, thyroid gland is normal without masses. Pulmonary: Clear to auscultation and percussion bilaterally. Cardiac: Regular rate and rhythm. No murmur Abdomen: Soft, nontender, nondistended, bowel sounds present all 4 quadrants, no guarding, no rigidity, no organomegaly. Extremities: No cyanosis, clubbing, no edema Neuro: Cranial nerves II through XII grossly intact, normal affect and speech, no focal motor deficits. Labs/Xrays Labs Test 02/11/25 02:27 Range/Units White Blood Count 7.6 4.4-10.8 10^3/uL Red Blood Count 4.21 L 4.5-5.90 10^6/uL Hemoglobin 13.1 L 13.5-17.5 g/dL Hematocrit 37.5 L 41.0-53.0 % Mean Corpuscular Volume 89.1 80.0-100.0 fL Mean Corpuscular Hemoglobin 31.1 28.0-32.0 pg Mean Corpuscular Hemoglobin Concent 34.9 32.0-36.0 g/dL Red Cell Distribution Width 12.6 11.8-14.3 % Platelet Count 236 140-450 10^3/uL Mean Platelet Volume 7.6 6.9-10.8 fL Neutrophils (%) (Auto) 61.1 37.0-80.0 % Lymphocytes (%) (Auto) 24.9 10.0-50.0 % Monocytes (%) (Auto) 10.6 0.0-12.0 % Eosinophils (%) (Auto) 2.4 0.0-7.0 % Basophils (%) (Auto) 1.0 0.0-2.0 % Neutrophils # (Auto) 4.6 1.6-8.6 10 ^3/uL Lymphocytes # (Auto) 1.9 0.4-5.4 10 ^3/uL Monocytes # (Auto) 0.8 0-1.3 10 ^3/uL Eosinophils # (Auto) 0.2 0-0.8 10 ^3/uL Basophils # (Auto) 0.1 0-0.2 10 ^3/uL Nucleated Red Blood Cells 0.3 % Prothrombin Time 10.7 9.3-11.8 sec Prothrombin Time INR 1.01 0.9-1.15 Activated Partial Thromboplast Time 31.8 24.5-34.5 SEC Sodium Level 132 L 136-145 mmol/L Potassium Level 3.9 3.5-5.1 mmol/L Chloride Level 96 L 98-107 mmol/L Carbon Dioxide Level 30 20-31 mmol/L Anion Gap 6 5-15 Blood Urea Nitrogen 13 9-23 mg/dL Creatinine 0.60 L 0.700-1.30 mg/dL Glomerular Filtration Rate Calc 113 >90 mL/min BUN/Creatinine Ratio 21.7 H 10.0-20.0 Serum Glucose 113 H 74-106 mg/dL Calcium Level 10.7 H 8.7-10.4 mg/dL Total Bilirubin 0.2 0.2-1.0 mg/dL Aspartate Amino Transferase (AST) 17 13-40 U/L Alanine Aminotransferase (ALT) 13 7-40 U/L Alkaline Phosphatase 106 46-116 U/L Total Protein 8.2 5.7-8.2 g/dL Albumin 4.8 3.2-4.8 g/dL Assessment/Plan Assessment/Plan Assessment Gross hematuria Acute urinary retention COPD Bed ridden History of seizures Plan Admit the patient to [facility] to the hospitalist Urology consultation CT abdomen pending Resume home medications Continue treatment per orders. Plan discussed with: Patient My Orders Orders - GABRIELLE FERNANOD Procedure Category Date Status Time Urinalysis LAB 02/11/25 Verified 05:07 Levofloxacin Levaquin PHA 02/12/25 Verified 10:00 Urine Bacterial SOHAM 02/11/25 Verified Culture 05:07 * Urology Consult CONS 02/11/25 Verified 05:07 Type And Screen BBK 02/11/25 Verified 05:07 Albuterol Medneb PHA 02/11/25 Verified (Ventolin Medneb) 05:15 Aspirin Tablet PHA 02/11/25 Verified 10:00 Furosemide Tablet PHA 02/11/25 Verified (Lasix Tablet) 10:00 Levetiracetam Oral PHA 02/11/25 Verified Solution (Keppra Oral 10:00 Pantoprazole PHA 02/11/25 Verified (Protonix) 10:00 Tamsulosin PHA 02/11/25 Verified Hydrochloride (Flomax) 18:00 Consult For Nutrition NOURISH 02/11/25 Verified 05:07 Basic Metabolic Panel LAB 02/12/25 Verified 04:00 Admit ADMIT 02/11/25 Verified 05:07 Ondansetron Hcl PHA 02/11/25 Verified (Zofran) 05:15 Complete Blood Count LAB 02/12/25 Verified 04:00 Condition: Stable ZARINA 02/11/25 Verified 05:07 Acetaminophen Tablet PHA 02/11/25 Verified (Tylenol Tablet) 05:15 Bedrest With Bathroom ZARINA 02/11/25 Verified Privileg 05:07 Date of Service: Feb 11, 2025 Billing Provider: GABRIELLE FERNANDO Common Visit Codes: [id number] INP/OBS CARE (HIGH) GABRIELLE FERNANDO Feb 11, 2025 05:19
[2025-02-11] MEDS: SODIUM CHLORIDE 0.9% 1,000 ML IV ONE (05:21)
[2025-02-11] MEDS: IOHEXOL 300 MG/ML 100ML BOTTLE IJ ONE (05:21)
--- NOTE | 2025-02-11 05:44 | DVH ---
Exam: CT CT AB PEL WITH IV CON ONLY History: hematuria, h/o renal mass Comparison Study: None available at time of dictation. Contrast: Type of contrast: Omnipaque 300 Contrast injected: 100 cc Contrast wasted: 0 TECHNIQUE: CT scan of the abdomen pelvis was performed with intravenous contrast from the lung bases to the proximal femurs using intravenous contrast. Coronal sagittal reformatted images are submitted . Radiation Dose Information: CT Dose: CTDI volume is 11.63 mGy. Dose-length product is 690.27 mGy*cm FINDINGS: Lung Bases: Bibasilar atelectasis. Normal heart size. No pleural or pericardial effusion. Liver: The liver is normal in size. No focal lesions. Normal hepatic vascular enhancement. Gallbladder and Biliary Tree: The gallbladder is surgically absent. Mild intrahepatic biliary ductal dilatation. Common bile duct is dilated measuring 7 mm. Spleen: Unremarkable Pancreas: The pancreas is normal in appearance without focal lesions or abnormal enhancement. Adrenal Glands: Unremarkable Kidneys: The kidneys enhance symmetrically. There is a heterogeneously enhancing mixed attenuation ma ss in the right upper pole which is partially exophytic. The mass measures 1.5 x 1.5 cm. Additional bilateral renal cysts. Mild bilateral hydroureteronephrosis. No obstructive calculus. Bladder: Distended urinary bladder containing soft tissue density layering in the urinary bladder pos teriorly. Bowel: Percutaneous gastrostomy tube balloon anchored in the gastric lumen. Small bowel is normal in caliber. Diffuse stool throughout colon. Appendix visualized and normal in caliber. Intraperitoneal cavity: No pneumoperitoneum. No ascites. Lymphadenopathy: No mesenteric, retroperitoneal or periportal lymphadenopathy. Abdominal Wall and Mesentery: Unremarkable. Vasculature: The visualized abdominal aorta is normal in size and caliber. Abdominal and pelvic vess els demonstrate normal enhancement. Pelvic Organs: Enlarged prostate with calcifications. Penile implant and reservoir noted. Musculoskeletal: No suspicious bone lesion or acute osseous abnormality. Soft tissues: Unremarkable. IMPRESSION: 1. Distended urinary bladder containing soft tissue density which layers dependently and may reflect blood clots. Bladder mass not excluded. Consider bladder ultrasound for further evaluation. Mild bi lateral hydroureteronephrosis which may be related to the distended urinary bladder. No obstructing c alculus noted. 2. Cholecystectomy. Mild intrahepatic and extrahepatic biliary ductal dilatation. 3. Right renal mass measures 1.5 x 1.5 cm. This could represent malignancy in the appropriate clinica l setting. All CT scans at this medical facility are performed using dose modulation techniques as appropriate t o a performed exam including the following: Automated exposure control was utilized; adjustment of th e MA and/or KV according to patient size; and use of iterative reconstruction technique.
[2025-02-11] MEDS: FUROSEMIDE 40 MG TAB PO SCH (10:00)
[2025-02-11 10:02] LABS: Urine Bacteria None Seen /hpf (None Seen)
[2025-02-11 10:14] LABS: Urine Blood 3+ /uL (Negative); Urine Clarity Ex.Turbid (Clear); Urine Color Dark-Red (Yellow); Urine Protein, UAD 2+ (Negative); Urine Squamous Epithelial Cell None Seen /hpf (<5); Urine Urobilinogen 2 mg/dL (Negative); Urine pH 8.5 (5.0-9.0)
[2025-02-11 10:17] LABS: Urine WBC 1 /HPF (0-3)
[2025-02-11] MEDS: SODIUM CHLORIDE 0.9% 500 ML IV ONE (10:20)
[2025-02-11] MEDS: PANTOPRAZOLE 40 MG/10 ML VIAL INJ IV SCH (10:20)
[2025-02-11] MEDS: ASPirin 81 mg TAB PO SCH (10:23)
[2025-02-11] MEDS: levETIRAcetam 500 MG/5ML ORAL SOLN UD GT SCH (11:41)
--- NOTE | 2025-02-11 11:51 | DVHINCON2 ---
Date of service: Feb 11, 2025 Referring Physician Hospitalist Reason for Consultation gross hematuria History of Present Illness History Source: Patient, RN Notes, MD Notes, Old Records Exam Limitations: No limitations HPI 54 yo male with BPH c/o retention of urine and gross hematuria. Pt is known to urology service for BPH and renal cyst. BIBA for c/o blood in his urine, with associated suprapubic abdominal pain, for 1 day. Patient is reported to have been producing blood since yesterday morning, with an estimated 20ml production. Patient is stated to have an extensive medical history, including frequent UTI's and BPH. Patient denies any nausea, vomiting, fever, chills, or other associated symptoms or modifiers. Home Meds Active Scripts Cefdinir (Cefdinir) 300 Mg Cap, 1 CAP PO BID for 10 Days, #20 CAP Prov:GILMAR SAGE MD 02/11/25 Reported Medications Lidocaine (Ztlido) 1.8 % Pad, 1.8 % EX, PAD 11/14/24 Azithromycin (Azithromycin) 500 Mg Tab, 500 MG PO DAILY 11/14/24 Budesonide (Inhalation) (Budesonide) 0.5 Mg/2 Ml Nika, 0.5 MG, ML 11/14/24 Meloxicam (Meloxicam) 7.5 Mg Tab, 1 TAB PO DAILY, #30 TAB 2 Refills 11/14/24 Alendronate Sodium (Alendronate Sodium) 35 Mg Tab, 1 TAB PO QWEEKLY, #4 TAB 11 Refills 11/14/24 [place]-3 Fatty Acids ([place]-3) Unknown Strength Cap, PO, CAP 11/14/24 Oxybutynin Chloride (Oxybutynin Chloride) 5 Mg Tab, 5 MG PO, TAB 11/14/24 Baclofen (Baclofen) 10 Mg/5 Ml Haley, 10 MG PO, ML 11/14/24 Mupirocin Calcium (Topical) (MUPIROCIN) 2 % Cre, 2 % EX, CRE 11/14/24 Acetaminophen (Acetaminophen) 325 Mg Tab, 500 MG PO Q6HP PRN for MILD PAIN for 30 Days, MG 0 Refills 11/14/24 Timolol Maleate (Timolol Maleate Ophthalmi) Unknown Strength Haley, ECTOR QAM, #5 ML 5 Refills 11/14/24 Diclofenac Sodium (Topical) (Diclofenac Sodium) 2 % Haley, 3 % EX, ML 11/14/24 Cholecalciferol (VITAMIN D3) 5,000 Unit Tab, 5000 UNIT PO DAILY, TAB 01/16/24 Niacin (NIACIN ER) 500 Mg Tab, 500 MG PO DAILY, TAB 01/16/24 Ipratropium-Albuterol (Ipratropium [place]/Albut) 1 Haley Haley, 1 HALEY IN Q4HPRN PRN for SHORTNESS OF BREATH, ML 01/16/24 Aspirin (Aspirin 81 Low Dose) 81 Mg Chw, 81 MG PO DAILY 01/16/24 Cyanocobalamin (Vitamin B12) 1,000 Mcg Tab, 1000 MCG PO DAILY, TAB 01/16/24 Pantoprazole Sodium (PANTOPRAZOLE SODIUM) 40 Mg Inj, 40 MG, INJ 08/22/23 Clotrimazole (Clotrimazole) 1 % Cre, 1 APPLIC TOP Q12HR for 30 Days, APPLIC 08/22/23 Magnesium Oxide (MAGNESIUM OXIDE) 400 Mg Tab, 1 TAB PO DAILY, #30 TAB 5 Refills 08/08/23 Zinc W/ Vitamin C (Vitamin C+Zinc 15-60 mg) 1 Tab Tab, 1 TAB PO DAILY, TAB 08/08/23 Hydrocodone-Acetaminophen (Hydrocodone Bitartrate/AC 10-325 mg) 1 Tab Tab, 1 TAB PO BID PRN for PAIN SCALE 7 THRU 10, TAB 08/08/23 Pravastatin Sodium (PRAVACHOL TABLET) 20 Mg Tb, 10 TAB PO DAILY, #30 TAB 5 Refills 08/08/23 Folic Acid (Folic Acid) 1 Mg Tab, 1 MG PO DAILY for 30 Days, MG 08/08/23 Tamsulosin Hcl (Tamsulosin Hcl) 0.4 Mg Cap, 0.4 MG PO QPM for 30 Days, MG 02/05/22 Past Medical History Renal/: UTI, Benign prostatic enlarg. Endocrine: NIDDM Patient Family History: Cancer G8 MOTHER G8 BROTHER G8 SISTER Hypertension in brother G8 BROTHER Renal failure G8 BROTHER G8 BROTHER Review of Systems Genitourinary: Dysuria, Frequency, Retention, Urgency, Pain H&P Exam Vital Signs Vital Signs Date Time Temp Pulse Resp B/P (MAP) Pulse Ox O2 Delivery O2 Flow Rate FiO2 02/11/25 10:23 97.8 79 17 91/52 (65 99 97.8 02/11/25 08:23 Room Air* 0 21 General Appeara: Well developed, Well nourished, Normal Appearance Neuro/Mental St: Alert, Oriented Appearance: Appropriate appearance, Appropriate insight Eye contact/ Speech: Cooperative, Good eye contact, Normal speech Skin Exam: Normal inspection, Normal color, Warm/dry Labs/Xrays [place] [id number] Ph: [phone] DIAGNOSTIC IMAGING Diagnostic Imaging Report : [id number] Signed PATIENT: ISABELLE MATHEW ACCT: [id number] UNIT: [id number] : 1970 LOC: ER ROOM / BED: / AGE / SEX: 54 / M ADM STATUS: REG ER SERVICE [id number] ORDERING PHYSICIAN: GILMAR SAGE MD PROCEDURE(s): ABPLIV - CT AB PEL WITH IV CON ONLY REASON: hematuria, h/o renal mass ORDER NUMBER(s): [id number], ACCESSION NUMBER(s): [id number] Exam: CT CT AB PEL WITH IV CON ONLY History: hematuria, h/o renal mass Comparison Study: None available at time of dictation. Contrast: Type of contrast: Omnipaque 300 Contrast injected: 100 cc Contrast wasted: 0 TECHNIQUE: CT scan of the abdomen pelvis was performed with intravenous contrast from the lung bases to the proximal femurs using intravenous contrast. Coronal sagittal reformatted images are submitted. Radiation Dose Information: CT Dose: CTDI volume is 11.63 mGy. Dose-length product is 690.27 mGy*cm FINDINGS: Lung Bases: Bibasilar atelectasis. Normal heart size. No pleural or pericardial effusion. Liver: The liver is normal in size. No focal lesions. Normal hepatic vascular enhancement. Gallbladder and Biliary Tree: The gallbladder is surgically absent. Mild intrahepatic biliary ductal dilatation. Common bile duct is dilated measuring 7 mm. Spleen: Unremarkable Pancreas: The pancreas is normal in appearance without focal lesions or abnormal enhancement. Adrenal Glands: Unremarkable Kidneys: The kidneys enhance symmetrically. There is a heterogeneously enhancing mixed attenuation mass in the right upper pole which is partially exophytic. The mass measures 1.5 x 1.5 cm. Additional bilateral renal cysts. Mild bilateral hydroureteronephrosis. No obstructive calculus. Bladder: Distended urinary bladder containing soft tissue density layering in the urinary bladder posteriorly. Bowel: Percutaneous gastrostomy tube balloon anchored in the gastric lumen. Small bowel is normal in caliber. Diffuse stool throughout colon. Appendix visualized and normal in caliber. Intraperitoneal cavity: No pneumoperitoneum. No ascites. Lymphadenopathy: No mesenteric, retroperitoneal or periportal lymphadenopathy. Abdominal Wall and Mesentery: Unremarkable. Vasculature: The visualized abdominal aorta is normal in size and caliber. Abdominal and pelvic vessels demonstrate normal enhancement. Pelvic Organs: Enlarged prostate with calcifications. Penile implant and reservoir noted. Musculoskeletal: No suspicious bone lesion or acute osseous abnormality. Soft tissues: Unremarkable. IMPRESSION: 1. Distended urinary bladder containing soft tissue density which layers dependently and may reflect blood clots. Bladder mass not excluded. Consider bladder ultrasound for further evaluation. Mild bilateral hydroureteronephrosis which may be related to the distended urinary bladder. No obstructing calculus noted. 2. Cholecystectomy. Mild intrahepatic and extrahepatic biliary ductal dilatation. 3. Right renal mass measures 1.5 x 1.5 cm. This could represent malignancy in t he appropriate clinical setting. All CT scans at this medical facility are performed using dose modulation techniques as appropriate to a performed exam including the following: Automated exposure control was utilized; adjustment of the MA and/or KV according to patient size; and use of iterative reconstruction technique. ATED BY: STEPHENIE MORALES MD DICTATED DATE/TIME: 02/11/25 0542 Labs Test 02/11/25 09:43 02/11/25 02:27 Range/Units Urine Color Dark-red Yellow Urine Clarity Ex.turbid Clear Urine pH 8.5 5.0-9.0 Urine Specific [place] 1.040 H 1.001-1.035 Urine Protein 2+ H Negative Urine Ketones Negative Negative Urine Blood 3+ H Negative /uL Urine Nitrite 1+ H Negative Urine Bilirubin 1+ Negative Urine Urobilinogen 2 H Negative mg/dL Urine Leukocyte Esterase Negative Negative /uL Urine RBC 38262 0 - 3 /hpf Urine Microscopic WBC 1 0-3 /HPF Urine Squamous Epithelial Cells None seen <5 /hpf Urine Bacteria None seen None Seen /hpf Urine Glucose Trace Normal mg/dL White Blood Count 7.6 4.4-10.8 10^3/uL Red Blood Count 4.21 L 4.5-5.90 10^6/uL Hemoglobin 13.1 L 13.5-17.5 g/dL Hematocrit 37.5 L 41.0-53.0 % Mean Corpuscular Volume 89.1 80.0-100.0 fL Mean Corpuscular Hemoglobin 31.1 28.0-32.0 pg Mean Corpuscular Hemoglobin Concent 34.9 32.0-36.0 g/dL Red Cell Distribution Width 12.6 11.8-14.3 % Platelet Count 236 140-450 10^3/uL Mean Platelet Volume 7.6 6.9-10.8 fL Neutrophils (%) (Auto) 61.1 37.0-80.0 % Lymphocytes (%) (Auto) 24.9 10.0-50.0 % Monocytes (%) (Auto) 10.6 0.0-12.0 % Eosinophils (%) (Auto) 2.4 0.0-7.0 % Basophils (%) (Auto) 1.0 0.0-2.0 % Neutrophils # (Auto) 4.6 1.6-8.6 10 ^3/uL Lymphocytes # (Auto) 1.9 0.4-5.4 10 ^3/uL Monocytes # (Auto) 0.8 0-1.3 10 ^3/uL Eosinophils # (Auto) 0.2 0-0.8 10 ^3/uL Basophils # (Auto) 0.1 0-0.2 10 ^3/uL Nucleated Red Blood Cells 0.3 % Prothrombin Time 10.7 9.3-11.8 sec Prothrombin Time INR 1.01 0.9-1.15 Activated Partial Thromboplast Time 31.8 24.5-34.5 SEC Sodium Level 132 L 136-145 mmol/L Potassium Level 3.9 3.5-5.1 mmol/L Chloride Level 96 L 98-107 mmol/L Carbon Dioxide Level 30 20-31 mmol/L Anion Gap 6 5-15 Blood Urea Nitrogen 13 9-23 mg/dL Creatinine 0.60 L 0.700-1.30 mg/dL Glomerular Filtration Rate Calc 113 >90 mL/min BUN/Creatinine Ratio 21.7 H 10.0-20.0 Serum Glucose 113 H 74-106 mg/dL Calcium Level 10.7 H 8.7-10.4 mg/dL Total Bilirubin 0.2 0.2-1.0 mg/dL Aspartate Amino Transferase (AST) 17 13-40 U/L Alanine Aminotransferase (ALT) 13 7-40 U/L Alkaline Phosphatase 106 46-116 U/L Total Protein 8.2 5.7-8.2 g/dL Albumin 4.8 3.2-4.8 g/dL Assessment/Plan Problem List: (1) Diabetes (2) Complex renal cyst (3) Hematuria Plan [address] way mock manual irrigation of clots with sterile water until clear, then start CBI with NS to keep urine pink to clear. hold anticoagulants cystoscopy with clot evacuation and fulguration Consult IR service for cryoablation of 1.5 cm right renal mass Plan discussed with: Patient, Other SHELBY MADSEN NP Feb 11, 2025 11:51 KATHY BAEZA MD Feb 12, 2025 09:10
[2025-02-11] MEDS: LIDOCAINE 2% JELLY 11ml (GLYDO) UR ONE ×2 (11:56→12:06)
--- NOTE | 2025-02-11 12:07 | DVHPN2 ---
Progress Note Date Seen: Feb 11, 2025 Medical Necessity Reason Pt with a Central, PICC or Fol: Yes The following are medically ne: Mock Catheter Reason for mock catheter: Strict I&O Subjective Patient reports: No new complaints Review of Systems: HEENT:Normal, CVS:Normal, RESPIRATORY:Normal, GI:Normal, :Normal, MSK:Normal, NEURO:Normal Objective vital signs Vital Sign Date Time Temp Pulse Resp B/P (MAP) Pulse Ox O2 Delivery O2 Flow Rate FiO2 02/11/25 10:23 97.8 79 17 91/52 (65) 99 97.8 02/11/25 08:23 Room Air* 0 21 Total Intake and Output 02/10/25 02/10/25 02/11/25 15:00 23:00 07:00 Intake Total 1050 ml Balance 1050 ml medications Current Medications Medications Dose Ordered Sig/Ezequiel Route Start Time Stop Time Status Last Admin Dose Admin Levofloxacin/ Dextrose 100 ml @ 100 mls/hr DAILY IV 02/12/25 10:00 Albuterol 2.5 mg Q6HPRN PRN NEB 02/11/25 05:15 Levetiracetam 500 mg BID GT 02/11/25 10:00 02/11/25 11:41 500 MG Pantoprazole Sodium 40 mg DAILY IV 02/11/25 10:00 02/11/25 10:20 40 MG Tamsulosin HCl 0.4 mg QPM PO 02/11/25 18:00 Ondansetron HCl 4 mg Q4HP PRN IV 02/11/25 05:15 Acetaminophen 650 mg Q6HP PRN PO 02/11/25 05:15 Finasteride 5 mg DAILY PO 02/12/25 10:00 UNV Tamsulosin HCl 0.4 mg QPM PO 02/11/25 18:00 UNV Examination: GENERAL:Normal, HEENT:Normal, NECK:Normal, LUNGS:Normal, CVS:Normal, ABDOMEN:Normal, ABDOMEN:Abnormal (PEG), MSK:Normal, SKIN:Normal, NEURO:Normal, :Normal laboratory and microbiology Laboratory Tests 02/11/25 02:27 Test 02/11/25 02:27 Range/Units Serum Glucose 113 H 74-106 mg/dL Problem List/Assessment/Plan Problem List/Assessment/Plan * hematuria: mock/ bladder irrigation, urology consult * Benign prostatic hypertrophy. * Diabetes mellitus: ssi * History of seizure disorder: on keppra * Previous ventriculoperitoneal shunt. * History of neurocysticercosis. * Chronic obstructive pulmonary disease. * chronic diastolic heart failure. * Bedbound status with functional paraplegia. * Urinary tract infection. ? : culture, iv invanz * peg tube: feedings advance care planning- full code- time spent 19 mins Plan discussed with: Patient, Spouse Date of Service: Feb 11, 2025 Billing Provider: GABRIELLE BOLAÑOS MD Common Visit Codes: [id number] INP/OBS CARE(HIGH) Secondary Visit Codes: [id number] CARE PLAN 30 MINUTES GABRIELLE BOLAÑOS MD Feb 11, 2025 12:07
--- NOTE | 2025-02-11 12:47 | DVH ---
EXAM: XY CHEST PORTABLE Indication: CHF Technique: Single frontal view of the chest was obtained Comparison: XY CHEST PORTABLE on DOS: 01/25/24, XY CHEST PORTABLE on DOS: 01/24/24, XY CHEST PORTABLE on DOS: 01/23/24, XY CHEST PORTABLE on DOS: 01/22/24, XY CHEST PORTABLE on DOS: 01/21/24 FINDINGS: Lines and Tubes: None Lungs: No focal consolidation. Pleura: No effusion. No pneumothorax. Cardiomediastinal contours: Unremarkable Bones: No acute osseous abnormality. IMPRESSION: No acute cardiopulmonary disease.
[2025-02-11] MEDS: SODIUM CHLORIDE 0.9% 1,000 ML IV SCH (13:05)
[2025-02-11] MEDS: ERTAPENEM SOD INJ 1 GM in SODIUM CHL 0.9% 50 ML IV ONE (13:29)
[2025-02-11] MEDS ORDERED: TAMSULOSIN HYDROCHLORIDE 0.4 MG CAP PO SCH (18:00)
[2025-02-11] MEDS: TAMSULOSIN HYDROCHLORIDE 0.4 MG CAP PO SCH (18:00)
[2025-02-11] MEDS: ACETAMINOPHEN 325 MG TAB PO PRN (21:05)
[2025-02-11] MEDS: ALBUTEROL SULF 2.5 MG/0.5ML(0.5%) NEB SOLN NEB PRN (22:47)
[2025-02-12] VITALS (13 sets, daily range): BP systolic 83–94; BP diastolic 44–56; PULSE 79–101; RESP 12–19; TEMP 97.3–98.6; O2SAT 94–100
[2025-02-12 08:00] LABS: Basophils # (auto) 0 10 ^3/uL (0-0.2); Basophils % (auto) 0.2 % (0.0-2.0); Eosinophils # (auto) 0.1 10 ^3/uL (0-0.8); Hematocrit 21.7 % (41.0-53.0); Hemoglobin 7.6 g/dL (13.5-17.5); Lymphocytes # (auto) 2.2 10 ^3/uL (0.4-5.4); Lymphocytes % (auto) 25.8 % (10.0-50.0); Mean Corpuscular Hemoglobin 31.5 pg (28.0-32.0); Mean Corpuscular Volume 89.9 fL (80.0-100.0); Monocytes # (auto) 0.8 10 ^3/uL (0-1.3); Monocytes % (auto) 9.5 % (0.0-12.0); Neutrophils # (auto) 5.4 10 ^3/uL (1.6-8.6); Neutrophils % (auto) 63.5 % (37.0-80.0); Nucleated Red Blood Cells % 0.1 %; Platelet Count (auto) 196 10^3/uL (140-450); Red Blood Cells 2.41 10^6/uL (4.5-5.90); Red Cell Distribution Width 12.4 % (11.8-14.3); White Blood Cell 8.5 10^3/uL (4.4-10.8)
[2025-02-12 08:19] LABS: Chloride 101 mmol/L (98-107); Potassium 4.5 mmol/L (3.5-5.1); Sodium 136 mmol/L (136-145)
[2025-02-12 08:20] LABS: Anion Gap 5 (5-15); Calcium 9.2 mg/dL (8.7-10.4); Carbon Dioxide 30 mmol/L (20-31)
[2025-02-12 08:25] LABS: BUN/Creatinine Ratio 14.3 (10.0-20.0); Blood Urea Nitrogen 9 mg/dL (9-23); Glucose 103 mg/dL (74-106)
[2025-02-12] MEDS: ERTAPENEM SOD INJ 1 GM in SODIUM CHL 0.9% 50 ML IV SCH (10:00)
[2025-02-12] MEDS: FINASTERIDE 5 MG TAB PO SCH (10:00)
[2025-02-12] MEDS ORDERED: levoFLOXacin 500MG 100 ML IV SCH (10:00)
--- NOTE | 2025-02-12 11:22 | DVHPN2 ---
Progress Note Date Seen: Feb 12, 2025 Medical Necessity Reason Pt with a Central, PICC or Fol: Yes The following are medically ne: Mock Catheter Reason for mock catheter: Strict I&O Subjective Patient reports: No new complaints Review of Systems: HEENT:Normal, CVS:Normal, RESPIRATORY:Normal, GI:Normal, :Normal, MSK:Normal, NEURO:Normal Objective vital signs Vital Sign Date Time Temp Pulse Resp B/P (MAP) Pulse Ox O2 Delivery O2 Flow Rate FiO2 02/12/25 08:00 82 18 99 Nasal Cannula* 2 02/12/25 05:00 98.6 87/45 (59) 98.6 Total Intake and Output 02/11/25 02/11/25 02/12/25 15:00 23:00 07:00 Intake Total 75 ml 525 ml 0 ml Output Total 65829 ml 53802 ml 66691 ml Balance -96271 ml -32379 ml -85732 ml medications Current Medications Medications Dose Ordered Sig/Ezequiel Route Start Time Stop Time Status Last Admin Dose Admin Albuterol 2.5 mg Q6HPRN PRN NEB 02/11/25 05:15 02/11/25 22:47 2.5 MG Levetiracetam 500 mg BID GT 02/11/25 10:00 02/11/25 23:54 500 MG Pantoprazole Sodium 40 mg DAILY IV 02/11/25 10:00 02/11/25 10:20 40 MG Ondansetron HCl 4 mg Q4HP PRN IV 02/11/25 05:15 Acetaminophen 650 mg Q6HP PRN PO 02/11/25 05:15 02/11/25 21:05 650 MG Finasteride 5 mg DAILY PO 02/12/25 10:00 Tamsulosin HCl 0.4 mg QPM PO 02/11/25 18:00 Ertapenem 1 gm/ Sodium Chloride 50 ml @ 100 mls/hr DAILY IV 02/12/25 10:00 Sodium Chloride 1,000 ml @ 75 mls/hr [id number] IV 02/11/25 12:00 02/12/25 08:50 75 MLS/HR Enteral Nutritional Formula 1,000 ml 40ML/HR GT 02/11/25 12:00 Examination: GENERAL:Normal, HEENT:Normal, NECK:Normal, LUNGS:Normal, CVS:Normal, ABDOMEN:Normal, MSK:Normal, SKIN:Normal, NEURO:Normal, :Normal laboratory and microbiology Laboratory Tests 02/12/25 05:57 Test 02/12/25 05:57 Range/Units Serum Glucose 103 74-106 mg/dL Microbiology Date/Time Source Procedure Growth Status 02/11/25 09:43 Voided Urine Urine Culture - Preliminary Resulted Problem List/Assessment/Plan Problem List/Assessment/Plan * hematuria: mock/ bladder irrigation, cysto today * Benign prostatic hypertrophy. * Diabetes mellitus: ssi * History of seizure disorder: on keppra * Previous ventriculoperitoneal shunt. * History of neurocysticercosis. * Chronic obstructive pulmonary disease: bronchodilators * chronic diastolic heart failure. * Bedbound status with functional paraplegia. * Urinary tract infection. ? : culture, iv invanz * peg tube: feedings * anemia: monitor, iv iron advance care planning- full code- time spent 19 mins Plan discussed with: Patient, Spouse, Daughter My Orders My Orders Orders - GABRIELLE BOLAÑOS MD Procedure Category Date Status Time Blood Culture SOHAM 02/11/25 In Process 11:56 Ertapenem Sod Inj PHA 02/12/25 In Process (Invanz) 10:00 Sodium Chloride 0.9% PHA 02/11/25 In Process 12:00 Chest Portable XY 02/11/25 Resulted 11:56 Nutritional PHA 02/11/25 In Process Supplements (Jevity 12:00 Dietary Evaluation Review Comments: 1) Continuous TF Jevity 1.2Cal @ 60ml/hr x 24hr. Start @ 30ml/hr, increase 10ml/hr Q4H until goal is reached. Water flush 100ml Q4H. TF at goal volume provides 1728 kcal, 80gm protain & 1162ml free water. 2) Bolus feeding Ensure Enlive 240ml x 5 per day, water flush 150ml Q4H TF at goal volume provides 1750 kcal, 100gm protein, Free water 900ml 3) Continue current POC Expected Outcomes/Goals: EN infusion to meet at least 75% estimated needs FU 2-3 days Food and Nutrition Intake (Mod: <75% est energy req 7days Fluid Accumulation (N/A): N/A Protein Calorie Malnutrition: N/A Is there a minimum of two crit: No Date of Service: Feb 12, 2025 Billing Provider: GABRIELLE BLOAÑOS MD Common Visit Codes: [id number] INP/OBS CARE(HIGH) Secondary Visit Codes: [id number] CARE PLAN 30 MINUTES GABRIELLE BOLAÑOS MD Feb 12, 2025 11:22
[2025-02-12] MEDS: ALBUTEROL SULF 2.5 MG/0.5ML(0.5%) NEB SOLN NEB SCH (12:00)
[2025-02-12] MEDS: IRON SUCROSE COMPLEX 110 ML IV SCH (12:00)
[2025-02-12] MEDS: IPRATROPIUM BROM 0.5 MG/2.5ML INH SOL NEB SCH (12:00)
[2025-02-12] MEDS ORDERED: PROPOFOL 10 MG/ML 20 ML IV ONE (12:07)
[2025-02-12] MEDS ORDERED: LIDOCAINE 2% (LOCAL ANESTH.) PF 5ml SDV ONE (12:07)
[2025-02-12] MEDS ORDERED: ROCURONIUM 10MG/ML 10ML VIAL IV ONE (12:07)
[2025-02-12] MEDS ORDERED: GLYCOPYRROLATE 0.2 MG/ML 1ML VIAL ONE (12:07)
[2025-02-12] MEDS ORDERED: ONDANSETRON HCL 4 MG/2 ML VIAL ONE (12:07)
[2025-02-12] MEDS ORDERED: SUGAMMADEX 200mg/2ml Vial (100MG/ML) IV ONE (12:07)
[2025-02-12] MEDS ORDERED: DexAMETHasone SOD PHOS 10MG/1ML VIAL INJ ONE (12:07)
[2025-02-12] MEDS ORDERED: KETOROLAC TROMETH 30 MG/ML 1ML VIAL ONE (12:07)
[2025-02-12] MEDS ORDERED: fentaNYL CITRATE 100 MCG/2 ML VL ONE (12:09)
[2025-02-12] MEDS ORDERED: KETAMINE 50mg/ML 1ml syringe ONE (12:10)
[2025-02-12] MEDS ORDERED: SODIUM CHLORIDE LOCK 10 ML ONE ×2 (13:24→14:04)
--- NOTE | 2025-02-12 13:58 | DVHNC2 ---
Procedure - OPERATIVE REPORT Pre-op. Diagnosis: Gross hematuria Right renal mass, 1.5 cm (Previously reported [place] 2 renal cyst) BPH Post-op. Diagnosis: Bladder tumor - left dome Bladder blood clots Operation: Cystoscopy with clot evacuation and fulguration Transurethral resection of bladder tumor- left bladder dome Anesthesia: General Indications: Patient has gross hematuria resulting in anemia and blood transfusion requirement. He is known to have 1.5 cm right renal mass and history of BPH. He even underwent a prior cystoscopy several months ago with negative findings. Details of Procedure: Indications, risks, complications, alternatives and benefits of Cystoscopy with clot evacuation and fulguration as well as other indicated procedures including transurethral resection of bladder tumor are discusse with the patient. All questions were encouraged and answered. Patient is aware of risks/complications including but not limited to infection, bleeding, bladder injury requiring additional procedures, urinary incontinence and possible need for additional procedures. Patient consented to proceed. Patient is taken to the operating room and underwent appropriate anesthesia. After positioning in lithotomy, area of the genitalia is prepped and draped in usual sterile fashion. Resecting element on the resectoscope with 30 degree lens is used to access the bladder and remove the massive blood clots noted in the bladder. There was a suspicious erythematous lesion involving the left dome of the bladder. This may represent irritation from catheter trauma versus a possible tumor. I resected the identified bladder mass and obtain hemostasis. I also fulgurated the prostatic urethra for hemostasis. normal saline irrigation with bipolar instruments were used. Both of the ureteric orifices were identified and was monitored for possible efflux of hematuria, and there was none. once the bladder was devoid of blood clots and hemostasis obtained, the resectoscope was removed in entirety. A [address] [place] catheter was inserted for continuous bladder irrigation. Specimens: Bladder tumor- Left anterior dome of the bladder, 5 cm diameter Complications: None Findings: Patient also has actively functioning three piece penile implant KATHY BAEZA MD Feb 12, 2025 13:58
[2025-02-12] MEDS ORDERED: PHENYLEPHRINE HCL 10 MG/ML VL ONE (14:04)
[2025-02-12] MEDS ORDERED: ONDANSETRON HCL 4 MG/2 ML VIAL IV PRN (14:30)
[2025-02-12] MEDS: PHENYLEPHRINE IV 250 ML IV SCH (14:30)
[2025-02-12] MEDS ORDERED: FLUMAZENIL 0.1 MG/ML INJ 10ML MDV IV PRN (14:30)
[2025-02-12] MEDS ORDERED: NALOXONE HCL 0.4 MG/ML VIAL IV PRN (14:30)
[2025-02-12] MEDS ORDERED: fentaNYL CITRATE 100 MCG/2 ML VL IV PRN (14:30)
[2025-02-12] MEDS ORDERED: HYDROmorphone HCL 2 MG/ML VL/or syr IV PRN (14:30)
[2025-02-12] MEDS ORDERED: ePHEDrine SULFATE 50 MG/ML AMP IV PRN (14:30)
[2025-02-12] MEDS ORDERED: hydrALAZINE HCL 20 MG/ML VL IV PRN (14:30)
[2025-02-12 15:11] LABS: Hematocrit 27.7 % (41.0-53.0); Hemoglobin 9.2 g/dL (13.5-17.5)
[2025-02-12] MEDS: Jevity 1.2 Cal/Fiber 1 Liter GT SCH (17:53)
[2025-02-13] VITALS (13 sets, daily range): BP systolic 83–118; BP diastolic 44–64; PULSE 57–96; RESP 16–18; TEMP 97.9–98; O2SAT 92–100
[2025-02-13 07:23] LABS: Potassium 4.1 mmol/L (3.5-5.1); Sodium 142 mmol/L (136-145)
[2025-02-13 07:24] LABS: Anion Gap 6 (5-15); Carbon Dioxide 26 mmol/L (20-31)
[2025-02-13 07:29] LABS: BUN/Creatinine Ratio 14.3 (10.0-20.0)
[2025-02-13 07:30] LABS: Magnesium 1.9 mg/dL (1.6-2.6)
[2025-02-13 07:31] LABS: Phosphorus 2.5 mg/dL (2.4-5.1)
[2025-02-13 07:33] LABS: Blood Urea Nitrogen 8 mg/dL (9-23); Calcium 8.7 mg/dL (8.7-10.4); Chloride 110 mmol/L (98-107); Glucose 119 mg/dL (74-106)
[2025-02-13 07:51] LABS: CRP High Sensitivity 4.68 mg/dL (<1.0)
--- NOTE | 2025-02-13 14:25 | DVHPN2 ---
Progress Note Date Seen: Feb 13, 2025 Medical Necessity Reason Pt with a Central, PICC or Fol: Yes The following are medically ne: Mock Catheter Reason for mock catheter: Strict I&O Subjective Patient reports: No new complaints Review of Systems: HEENT:Normal, CVS:Normal, RESPIRATORY:Normal, GI:Normal, :Normal, MSK:Normal, NEURO:Normal Objective vital signs Vital Sign Date Time Temp Pulse Resp B/P (MAP) Pulse Ox O2 Delivery O2 Flow Rate FiO2 02/13/25 10:41 85 18 100 02/13/25 10:28 Nasal Cannula* 2 02/13/25 05:00 98.0 83/44 (57) 98.0 Total Intake and Output 02/12/25 02/12/25 02/13/25 15:00 23:00 07:00 Intake Total 100 ml 800 ml 0 ml Output Total 800 ml 3000 ml Balance 100 ml 0 ml -3000 ml medications Current Medications Medications Dose Ordered Sig/Ezequiel Route Start Time Stop Time Status Last Admin Dose Admin Albuterol 2.5 mg Q6HPRN PRN NEB 02/11/25 05:15 02/11/25 22:47 2.5 MG Levetiracetam 500 mg BID GT 02/11/25 10:00 02/13/25 10:25 500 MG Pantoprazole Sodium 40 mg DAILY IV 02/11/25 10:00 02/13/25 10:23 40 MG Ondansetron HCl 4 mg Q4HP PRN IV 02/11/25 05:15 Acetaminophen 650 mg Q6HP PRN PO 02/11/25 05:15 02/12/25 20:40 650 MG Finasteride 5 mg DAILY PO 02/12/25 10:00 02/13/25 10:32 5 MG Tamsulosin HCl 0.4 mg QPM PO 02/11/25 18:00 Ertapenem 1 gm/ Sodium Chloride 50 ml @ 100 mls/hr DAILY IV 02/12/25 10:00 02/13/25 10:22 100 MLS/HR Sodium Chloride 1,000 ml @ 75 mls/hr [id number] IV 02/11/25 12:00 02/13/25 04:00 75 MLS/HR Enteral Nutritional Formula 1,000 ml 40ML/HR GT 02/11/25 12:00 02/12/25 17:53 1,000 ML Iron Sucrose 110 ml @ 110 mls/hr DAILY@1200 IV 02/12/25 12:00 02/16/25 12:59 Albuterol 2.5 mg Q6HWA NEB 02/12/25 12:00 02/13/25 10:28 2.5 MG Ipratropium [place] 0.5 mg Q6HWA NEB 02/12/25 12:00 02/13/25 10:28 0.5 MG Phenylephrine HCl 250 ml @ 60 mls/hr Q4H10M IV 02/12/25 14:30 Examination: GENERAL:Normal, HEENT:Normal, NECK:Normal, LUNGS:Normal, CVS:Normal, ABDOMEN:Normal, ABDOMEN:Abnormal (peg+), MSK:Normal, SKIN:Normal, NEURO:Normal, :Normal laboratory and microbiology Laboratory Tests 02/13/25 05:35 02/12/25 14:45 02/12/25 05:57 Test 02/13/25 05:35 Range/Units Serum Glucose 119 H 74-106 mg/dL Microbiology Date/Time Source Procedure Growth Status 02/11/25 12:46 Blood Blood Culture - Preliminary NO GROWTH AFTER 48 HOURS OF INCUBATION. Resulted 02/11/25 09:43 Voided Urine Urine Culture - Final Enterococcus faecalis Complete Problem List/Assessment/Plan Problem List/Assessment/Plan * hematuria: mock/ bladder irrigation, ?bladder lesion * Benign prostatic hypertrophy. * Diabetes mellitus: ssi * History of seizure disorder: on keppra * Previous ventriculoperitoneal shunt. * History of neurocysticercosis. * Chronic obstructive pulmonary disease: bronchodilators * chronic diastolic heart failure. * Bedbound status with functional paraplegia. * Urinary tract infection. with enterococus: ampicillin * peg tube: feedings * anemia: monitor, iv iron, s/p transfusion advance care planning- full code- time spent 19 mins Plan discussed with: Patient, Spouse My Orders My Orders Orders - GABRIELLE BOLAÑOS MD Procedure Category Date Status Time Basic Metabolic Panel LAB 02/14/25 Verified 06:00 Complete Blood Count LAB 02/14/25 Verified 06:00 Amoxicillin/Clavulanate PHA 02/13/25 Transmitted Suspen (Augmenti 14:30 Amoxicillin/Clavulanate PHA 02/13/25 Transmitted Suspen (Augmenti 22:00 Dietary Evaluation Review Comments: 1) Continuous TF Jevity 1.2Cal @ 60ml/hr x 24hr. Start @ 30ml/hr, increase 10ml/hr Q4H until goal is reached. Water flush 100ml Q4H. TF at goal volume provides 1728 kcal, 80gm protain & 1162ml free water. 2) Bolus feeding Ensure Enlive 240ml x 5 per day, water flush 150ml Q4H TF at goal volume provides 1750 kcal, 100gm protein, Free water 900ml 3) Continue current POC Expected Outcomes/Goals: EN infusion to meet at least 75% estimated needs FU 2-3 days Food and Nutrition Intake (Mod: <75% est energy req 7days Fluid Accumulation (N/A): N/A Protein Calorie Malnutrition: N/A Is there a minimum of two crit: No Date of Service: Feb 13, 2025 Billing Provider: GABRIELLE BOLAÑOS MD Common Visit Codes: [id number] INP/OBS CARE(HIGH) GABRIELLE BOLAÑOS MD Feb 13, 2025 14:25
[2025-02-13] MEDS ORDERED: AMOXICILLIN/CLAV 400MG/5ML SUSP 50ML PO ONE (14:30)
[2025-02-13] MEDS: AMOXICILLIN/CLAV 200MG/5ML SUSP 50ML PO SCH (14:58)
[2025-02-14] VITALS (19 sets, daily range): BP systolic 98–136; BP diastolic 48–68; PULSE 86–99; RESP 16–99; TEMP 97.9–98.2; O2SAT 95–100
[2025-02-14 07:10] LABS: Chloride 106 mmol/L (98-107); Potassium 3.6 mmol/L (3.5-5.1); Sodium 140 mmol/L (136-145)
[2025-02-14 07:12] LABS: Anion Gap 6 (5-15); Calcium 9.1 mg/dL (8.7-10.4); Carbon Dioxide 28 mmol/L (20-31)
[2025-02-14 07:14] LABS: Basophils # (auto) 0 10 ^3/uL (0-0.2); Eosinophils # (auto) 0.1 10 ^3/uL (0-0.8); Hematocrit 21.9 % (41.0-53.0); Hemoglobin 7.5 g/dL (13.5-17.5); Lymphocytes # (auto) 2.4 10 ^3/uL (0.4-5.4); Mean Corpuscular Hemoglobin 30.1 pg (28.0-32.0); Mean Corpuscular Hgb Conc. 34.4 g/dL (32.0-36.0); Monocytes # (auto) 0.6 10 ^3/uL (0-1.3); Monocytes % (auto) 9.2 % (0.0-12.0); Platelet Count (auto) 178 10^3/uL (140-450); Red Cell Distribution Width 14.5 % (11.8-14.3); White Blood Cell 6.8 10^3/uL (4.4-10.8)
[2025-02-14 07:16] LABS: Basophils % (auto) 0.3 % (0.0-2.0); Eosinophils % (auto) 1.8 % (0.0-7.0); Lymphocytes % (auto) 35.8 % (10.0-50.0); Mean Corpuscular Volume 87.7 fL (80.0-100.0); Neutrophils # (auto) 3.6 10 ^3/uL (1.6-8.6); Neutrophils % (auto) 52.9 % (37.0-80.0)
[2025-02-14 07:17] LABS: Glucose 100 mg/dL (74-106)
[2025-02-14 07:19] LABS: Blood Urea Nitrogen 7 mg/dL (9-23)
[2025-02-14] MEDS: LACTULOSE 20Gm/30ML SOLN PO ONE (11:15)
--- NOTE | 2025-02-14 13:21 | DVHPN2 ---
Progress Note Date Seen: February 14, 2025 Medical Necessity Reason Pt with a Central, PICC or Fol: Yes The following are medically ne: Mock Catheter Reason for mock catheter: Strict I&O Subjective Patient reports: No new complaints Review of Systems: HEENT:Normal, CVS:Normal, RESPIRATORY:Normal, GI:Normal, :Normal, MSK:Normal, NEURO:Normal Objective vital signs Vital Sign Date Time Temp Pulse Resp B/P (MAP) Pulse Ox O2 Delivery O2 Flow Rate FiO2 02/14/25 11:42 91 16 100 02/14/25 11:34 Nasal Cannula* 2 02/14/25 09:00 97.9 122/57 (78) 97.9 Total Intake and Output 02/13/25 02/13/25 02/14/25 15:00 23:00 07:00 Intake Total 0 ml Balance 0 ml medications Current Medications Medications Dose Ordered Sig/Ezequiel Route Start Time Stop Time Status Last Admin Dose Admin Albuterol 2.5 mg Q6HPRN PRN NEB 02/11/25 05:15 02/11/25 22:47 2.5 MG Levetiracetam 500 mg BID GT 02/11/25 10:00 02/14/25 09:57 500 MG Pantoprazole Sodium 40 mg DAILY IV 02/11/25 10:00 02/14/25 09:56 40 MG Ondansetron HCl 4 mg Q4HP PRN IV 02/11/25 05:15 Acetaminophen 650 mg Q6HP PRN PO 02/11/25 05:15 02/13/25 21:38 650 MG Finasteride 5 mg DAILY PO 02/12/25 10:00 02/14/25 09:57 5 MG Tamsulosin HCl 0.4 mg QPM PO 02/11/25 18:00 02/13/25 18:00 0.4 MG Enteral Nutritional Formula 1,000 ml 40ML/HR GT 02/11/25 12:00 02/12/25 17:53 1,000 ML Iron Sucrose 110 ml @ 110 mls/hr DAILY@1200 IV 02/12/25 12:00 02/16/25 12:59 02/14/25 10:06 110 MLS/HR Albuterol 2.5 mg Q6HWA NEB 02/12/25 12:00 02/14/25 11:34 2.5 MG Ipratropium [place] 0.5 mg Q6HWA NEB 02/12/25 12:00 02/14/25 11:34 0.5 MG Amoxicillin/ Clavulanate Potassium 400 mg BID PO 02/13/25 14:58 02/14/25 10:04 400 MG Examination: GENERAL:Normal, HEENT:Normal, NECK:Normal, LUNGS:Normal, CVS:Normal, ABDOMEN:Normal, MSK:Normal, SKIN:Normal, NEURO:Normal, :Normal laboratory and microbiology Laboratory Tests 02/14/25 06:21 Test 02/14/25 06:21 Range/Units Serum Glucose 100 74-106 mg/dL Microbiology Date/Time Source Procedure Growth Status 02/11/25 12:46 Blood Blood Culture - Preliminary NO GROWTH AFTER 72 HOURS OF INCUBATION. Resulted 02/11/25 09:43 Voided Urine Urine Culture - Final Enterococcus faecalis Complete Problem List/Assessment/Plan Problem List/Assessment/Plan * hematuria: mock/ bladder irrigation, ?bladder lesion, dc mock * Benign prostatic hypertrophy. * Diabetes mellitus: ssi * History of seizure disorder: on keppra * Previous ventriculoperitoneal shunt. * History of neurocysticercosis. * Chronic obstructive pulmonary disease: bronchodilators * chronic diastolic heart failure. * Bedbound status with functional paraplegia. * Urinary tract infection. with enterococus: ampicillin * peg tube: feedings * anemia: monitor, iv iron, transfusion advance care planning- full code- time spent 19 mins Plan discussed with: Patient, Spouse My Orders My Orders Orders - GABRIELLE BOLAÑOS MD Procedure Category Date Status Time Amoxicillin/Clavulanate PHA 02/13/25 In Process Suspen (Augmenti 14:58 D/C Mock ZARINA 02/14/25 In Process 11:22 Vital Signs ZARINA 02/14/25 In Process 11:19 Administer Blood ZARINA 02/14/25 In Process Products 11:19 Dietary Evaluation Review Comments: 1) Continuous TF Jevity 1.2Cal @ 60ml/hr x 24hr. Start @ 30ml/hr, increase 10ml/hr Q4H until goal is reached. Water flush 100ml Q4H. TF at goal volume provides 1728 kcal, 80gm protain & 1162ml free water. 2) Bolus feeding Ensure Enlive 240ml x 5 per day, water flush 150ml Q4H TF at goal volume provides 1750 kcal, 100gm protein, Free water 900ml 3) Continue current POC Expected Outcomes/Goals: EN infusion to meet at least 75% estimated needs FU 2-3 days Food and Nutrition Intake (Mod: <75% est energy req 7days Fluid Accumulation (N/A): N/A Protein Calorie Malnutrition: N/A Is there a minimum of two crit: No Date of Service: February 14, 2025 Billing Provider: GABRIELLE BOLAÑOS MD Common Visit Codes: [id number] INP/OBS CARE(HIGH) GABRIELLE BOLAÑOS MD February 14, 2025 13:21
[2025-02-14] MEDS ORDERED: LACTULOSE 20Gm/30ML SOLN PO PRN (16:30)
[2025-02-15] VITALS (11 sets, daily range): BP systolic 97–133; BP diastolic 58–67; PULSE 80–92; RESP 17–19; TEMP 36.6; O2SAT 94–100
--- NOTE | 2025-02-15 07:01 | DVHPN2 ---
Subjective Feeling better this afternoon; urine is clear now; urinating without Montague's catheter; daughter translated Reviewed: Care Plan, H&P, Labs, Medications, Previous Orders, Radiology, Other (Consultation) Changes from previous H/P or p: Changes Objective Vitals Vital Signs Date Time Temp Pulse Resp B/P (MAP) Pulse Ox O2 Delivery O2 Flow Rate FiO2 02/15/25 05:47 82 18 100 02/15/25 05:40 Nasal Cannula 2.0 02/15/25 05:40 28 02/15/25 05:00 98.9 109/59 (76) 98.9 Intake/Output Intake and Output 02/15/25 07:00 Intake Total 300 ml Output Total 1725 ml Balance -1425 ml Intake Oral 0 ml Blood Product 300 ml Output Urine Total 1725 ml # Voids 3 # Bowel Movements 1 General Appearance: Alert, Oriented X3, Cooperative, No acute distress HEENT: Atraumatic Lungs: Other (Decreased air entry bilaterally with no added sounds) Cardiovascular: Regular rate, Normal S1, Normal S2 Abdomen: Normal bowel sounds, Soft, No tenderness, Other (G-tube in place) Neuro: Normal speech, Cranial nerves 3-12 NL Psych/Mental Status: Mental status NL, Mood NL Medications Current Medications Medications Dose Ordered Sig/Ezequiel Route Start Time Stop Time Status Last Admin Dose Admin Albuterol 2.5 mg Q6HPRN PRN NEB 02/11/25 05:15 02/11/25 22:47 2.5 MG Levetiracetam 500 mg BID GT 02/11/25 10:00 02/14/25 23:23 500 MG Pantoprazole Sodium 40 mg DAILY IV 02/11/25 10:00 02/14/25 09:56 40 MG Ondansetron HCl 4 mg Q4HP PRN IV 02/11/25 05:15 Acetaminophen 650 mg Q6HP PRN PO 02/11/25 05:15 02/13/25 21:38 650 MG Finasteride 5 mg DAILY PO 02/12/25 10:00 02/14/25 09:57 5 MG Tamsulosin HCl 0.4 mg QPM PO 02/11/25 18:00 02/14/25 18:00 0.4 MG Enteral Nutritional Formula 1,000 ml 40ML/HR GT 02/11/25 12:00 02/12/25 17:53 1,000 ML Iron Sucrose 110 ml @ 110 mls/hr DAILY@1200 IV 02/12/25 12:00 02/16/25 12:59 02/14/25 10:06 110 MLS/HR Albuterol 2.5 mg Q6HWA [facility] 02/12/25 12:00 02/15/25 05:40 2.5 MG Ipratropium [place] 0.5 mg Q6HWA [facility] 02/12/25 12:00 02/15/25 05:40 0.5 MG Amoxicillin/ Clavulanate Potassium 400 mg BID PO 02/13/25 14:58 02/14/25 10:04 400 MG Lactulose 30 ml BIDPRN PRN PO 02/14/25 16:30 Laboratory Results Laboratory Tests 02/14/25 06:21 Urinalysis Test 02/11/25 09:43 Urine Color Dark-red (Yellow) Urine Clarity Ex.turbid (Clear) Urine pH 8.5 (5.0-9.0) Urine Specific [place] 1.040 (1.001-1.035) Urine Protein 2+ (Negative) H Urine Ketones Negative (Negative) Urine Blood 3+ /uL (Negative) H Urine Nitrite 1+ (Negative) H Urine Bilirubin 1+ (Negative) Urine Urobilinogen 2 mg/dL (Negative) H Urine Leukocyte Esterase Negative /uL (Negative) Urine RBC 82975 /hpf (0 - 3) Urine Microscopic WBC 1 /HPF (0-3) Urine Squamous Epithelial Cells None seen /hpf (<5) Urine Bacteria None seen /hpf (None Seen) Urine Glucose Trace mg/dL (Normal) Microbiology Microbiology Date/Time Source Procedure Growth Status 02/11/25 12:46 Blood Blood Culture - Preliminary NO GROWTH AFTER 72 HOURS OF INCUBATION. Resulted 02/11/25 09:43 Voided Urine Urine Culture - Final Enterococcus faecalis Complete Labs and/or images reviewed: Labs reviewed by me, Image(s) reviewed by me Assessment/Plan Assessment/Plan Covering: Hematuria due to bladder lesions status post cystoscopy and resection by Urology; status post bladder irrigation; urinating well with no Montague's; clear urine; instructed to stop aspirin until re-evaluation by Urology Dr. Ivy on February 28, 2025 at 3:30 p.m. Complicated UTI with Enterococcus; received oral suspension of Augmentin as inpatient; discharged on same medication as outpatient via PEG tube; to follow up with the primary care provider within one week Benign prostatic hypertrophy; to continue home tamsulosin; to follow up with the primary care provider within one week Diabetes mellitus type 2; to resume home antidiabetic medications including insulin; to follow up with the primary care provider within a week History of seizure; to resume home Keppra; to follow up with the primary care provider within a week Chronic hypoxic respiratory failure due to COPD; not in exacerbation; to continue home oxygen as needed; to resume home inhalers; to follow up with the primary care provider within a week History of neurocysticercosis status post ventriculoperitoneal shunt and PEG tube; no active issues at this time; to follow up with the primary care provider within a week To continue PEG tube feeding with ensure upon discharge; to follow up with the primary care provider within a week Severe anemia; status post transfusion of 2 units of packed RBCs and status post IV iron; clear urine; stable hemoglobin at 9.5 this morning; to follow up with the primary care provider within one week Goals of care discussed with the patient and his family for 20 minutes; full code Late Entry. This medical document was created using an electronic medical record system with computerized dictation system. Although this document has been carefully reviewed, there might still be some phonetic and typographical errors. These areas are purely typographical due to imperfections of the software programs, and do not reflect any compromise in the patient's medical care. Plan discussed with: Patient, Spouse, Daughter, Other (Nurse) Date of Service: February 15, 2025 Billing Provider: MIGUEL ÁNGEL PINEDA MD Common Visit Codes: [id number] INP/OBS CARE(HIGH) Secondary Visit Codes: [id number] CARE PLAN 30 MINUTES (20 minutes) MIGUEL ÁNGEL PINEDA MD February 15, 2025 07:01
[2025-02-15 07:40] LABS: Basophils # (auto) 0 10 ^3/uL (0-0.2); Basophils % (auto) 0.3 % (0.0-2.0); Eosinophils # (auto) 0.2 10 ^3/uL (0-0.8); Hematocrit 27.9 % (41.0-53.0); Hemoglobin 9.5 g/dL (13.5-17.5); Lymphocytes # (auto) 2.4 10 ^3/uL (0.4-5.4); Mean Corpuscular Hemoglobin 29.3 pg (28.0-32.0); Mean Corpuscular Volume 86.2 fL (80.0-100.0); Monocytes # (auto) 0.6 10 ^3/uL (0-1.3); Monocytes % (auto) 8.2 % (0.0-12.0); Neutrophils # (auto) 4.2 10 ^3/uL (1.6-8.6); Neutrophils % (auto) 56.5 % (37.0-80.0); Nucleated Red Blood Cells % 0.1 %; Platelet Count (auto) 231 10^3/uL (140-450); Red Blood Cells 3.23 10^6/uL (4.5-5.90); Red Cell Distribution Width 15.9 % (11.8-14.3); White Blood Cell 7.5 10^3/uL (4.4-10.8)
[2025-02-15 08:41] LABS: Chloride 104 mmol/L (98-107); Potassium 3.8 mmol/L (3.5-5.1); Sodium 141 mmol/L (136-145)
[2025-02-15 08:42] LABS: Anion Gap 6 (5-15)
[2025-02-15 08:47] LABS: BUN/Creatinine Ratio 15.1 (10.0-20.0); Blood Urea Nitrogen 8 mg/dL (9-23); Carbon Dioxide 31 mmol/L (20-31); Glucose 92 mg/dL (74-106)
[2025-02-15] MEDS ORDERED: AMOX200S10 PO (13:51)
--- NOTE | 2025-02-15 14:04 | DVHDS2 ---
Discharge Summary Date of Admission Feb 11, 2025 at 05:07 Date of Discharge: February 15, 2025 Admitting Diagnosis Hematuria Labs/Diagnostic Data: Laboratory Results Test 02/15/25 06:07 02/13/25 05:35 02/11/25 09:43 02/11/25 02:27 White Blood Count 7.5 10^3/uL (4.4-10.8) Red Blood Count 3.23 10^6/uL (4.5-5.90) Hemoglobin 9.5 g/dL (13.5-17.5) Hematocrit 27.9 % (41.0-53.0) Mean Corpuscular Volume 86.2 fL (80.0-100.0) Mean Corpuscular Hemoglobin 29.3 pg (28.0-32.0) Mean Corpuscular Hemoglobin Concent 34.0 g/dL (32.0-36.0) Red Cell Distribution Width 15.9 % (11.8-14.3) Platelet Count 231 10^3/uL (140-450) Mean Platelet Volume 7.4 fL (6.9-10.8) Neutrophils (%) (Auto) 56.5 % (37.0-80.0) Lymphocytes (%) (Auto) 32.0 % (10.0-50.0) Monocytes (%) (Auto) 8.2 % (0.0-12.0) Eosinophils (%) (Auto) 3.0 % (0.0-7.0) Basophils (%) (Auto) 0.3 % (0.0-2.0) Neutrophils # (Auto) 4.2 10 ^3/uL (1.6-8.6) Lymphocytes # (Auto) 2.4 10 ^3/uL (0.4-5.4) Monocytes # (Auto) 0.6 10 ^3/uL (0-1.3) Eosinophils # (Auto) 0.2 10 ^3/uL (0-0.8) Basophils # (Auto) 0 10 ^3/uL (0-0.2) Nucleated Red Blood Cells 0.1 % Sodium Level 141 mmol/L (136-145) Potassium Level 3.8 mmol/L (3.5-5.1) Chloride Level 104 mmol/L (98-107) Carbon Dioxide Level 31 mmol/L (20-31) Anion Gap 6 (5-15) Blood Urea Nitrogen 8 mg/dL (9-23) Creatinine 0.53 mg/dL (0.700-1.30) Glomerular Filtration Rate Calc 118 mL/min (>90) BUN/Creatinine Ratio 15.1 (10.0-20.0) Serum Glucose 92 mg/dL (74-106) Calcium Level 10.0 mg/dL (8.7-10.4) Phosphorus Level 2.5 mg/dL (2.4-5.1) Magnesium Level 1.9 mg/dL (1.6-2.6) C-Reactive Protein High Sensitivity 4.68 mg/dL (<1.0) Urine Color Dark-red (Yellow) Urine Clarity Ex.turbid (Clear) Urine pH 8.5 (5.0-9.0) Urine Specific [place] 1.040 (1.001-1.035) Urine Protein 2+ (Negative) Urine Ketones Negative (Negative) Urine Blood 3+ /uL (Negative) Urine Nitrite 1+ (Negative) Urine Bilirubin 1+ (Negative) Urine Urobilinogen 2 mg/dL (Negative) Urine Leukocyte Esterase Negative /uL (Negative) Urine RBC 89453 /hpf (0 - 3) Urine Microscopic WBC 1 /HPF (0-3) Urine Squamous Epithelial Cells None seen /hpf (<5) Urine Bacteria None seen /hpf (None Seen) Urine Glucose Trace mg/dL (Normal) Prothrombin Time 10.7 sec (9.3-11.8) Prothrombin Time INR 1.01 (0.9-1.15) Activated Partial Thromboplast Time 31.8 SEC (24.5-34.5) Total Bilirubin 0.2 mg/dL (0.2-1.0) Aspartate Amino Transferase (AST) 17 U/L (13-40) Alanine Aminotransferase (ALT) 13 U/L (7-40) Alkaline Phosphatase 106 U/L (46-116) Total Protein 8.2 g/dL (5.7-8.2) Albumin 4.8 g/dL (3.2-4.8) Other Laboratory Tests 02/15/25 06:07 Brief Hx & Hospital Course: Covering: A 54-year-old male patient; multiple comorbidities; who presented to emergency department with hematuria; details as below: Hematuria due to bladder lesions status post cystoscopy and resection by Urology; status post bladder irrigation; urinating well with no Montague's; clear urine; instructed to stop aspirin until re-evaluation by Urology Dr. Iyv on February 28, 2025 at 3:30 p.m. Complicated UTI with Enterococcus; received oral suspension of Augmentin as inpatient; discharged on same medication as outpatient via PEG tube; to follow up with the primary care provider within one week Benign prostatic hypertrophy; to continue home tamsulosin; to follow up with the primary care provider within one week Diabetes mellitus type 2; to resume home antidiabetic medications including insulin; to follow up with the primary care provider within a week History of seizure; to resume home Keppra; to follow up with the primary care provider within a week Chronic hypoxic respiratory failure due to COPD; not in exacerbation; to continue home oxygen as needed; to resume home inhalers; to follow up with the primary care provider within a week History of neurocysticercosis status post ventriculoperitoneal shunt and PEG tube; no active issues at this time; to follow up with the primary care provider within a week To continue PEG tube feeding with ensure upon discharge; to follow up with the primary care provider within a week Chronic diastolic heart failure; not in exacerbation; to follow up with the primary care provider within a week Severe anemia; status post transfusion of 2 units of packed RBCs and status post IV iron; clear urine; stable hemoglobin at 9.5 this morning; to follow up with the primary care provider within one week Physical examination as documented in the progress note of the day of discharge. Late Entry. This medical document was created using an electronic medical record system with computerized dictation system. Although this document has been carefully reviewed, there might still be some phonetic and typographical errors. These areas are purely typographical due to imperfections of the software programs, and do not reflect any compromise in the patient's medical care. Consults/Reason for consult Urology for hematuria Operations or Procedures Cystoscopy with clot evacuation and fulguration. Transurethral resection of bladder tumor- left bladder dome Condition at Discharge: Stable Final Diagnosis/Problems List Hematuria due to bladder lesion status post status status cystoscopy and excision; hematuria resolved; pathology results pending Rest as above Discharge Disposition: Home (On home oxygen) Discharge Instruct/Medications Diet: See Comment Diet comment: Via PEG tube Activity: No Restrictions, As Tolerated Follow Up/Referral: To follow up with the primary care provider within one week; to follow up with Dr. Ivy at [facility] at 03:30 pm on February 28, 2025 Medications: To discontinue aspirin until seen by Dr. Ivy; Augmentin as oral suspension fluid for seven days via PEG tube; to continue rest of home medications Discharge Statement: "Patient was advised to return to the ER or call 911 if any headaches, dizziness, shortness of breath, chest pain, abdominal pain, bleeding, fevers, or worsening of medical condition. Patient was counseled about treatment plan, medications, possible side effects, patientverbalized understanding. All questions were answered to the best of my ability. This discharge took greater then 30 minutes in planning, reviewing documentation, counseling the patient, and discussing with other team members." ASSESSMENT ASSESSMENT Assessment Hematuria due to bladder lesion status post status status cystoscopy and excision; hematuria resolved; pathology results pending Date of Service: February 15, 2025 Billing Provider: MIGUEL ÁNGEL PINEDA MD Common Visit Codes: 47232-UEX/OBS DISCH DAY >30min MIGUEL ÁNGEL PINEDA MD February 15, 2025 14:04
== END 2025-02-15 16:05 | disposition home or self-care (01) | DRG 666 ==
LOC: ER 02:02 → EDUNIT# 02:02 → EDBD 02:02 → OVERFLOW 05:07 → WEST WING 21:52
PROVIDERS: ADMIT Internal Medicine; ATTEND Internal Medicine
PROC: 0V508ZZ Destruction of Prostate, Via Natural or Artificial Opening Endoscopic (ICD-10-PCS; 2025-02-12)
PROC: 0TBB8ZZ Excision of Bladder, Via Natural or Artificial Opening Endoscopic (ICD-10-PCS; 2025-02-12)
PROC: 0TCB8ZZ Extirpation of Matter from Bladder, Via Natural or Artificial Opening Endoscopic (ICD-10-PCS; 2025-02-12)
PROC: 30233N1 Transfusion of Nonautologous Red Blood Cells into Peripheral Vein, Percutaneous Approach (ICD-10-PCS; principal; 2025-02-12 12:28)
DX: D49.4 Neoplasm of unspecified behavior of bladder (principal); B69.0 Cysticercosis of central nervous system; I50.32 Chronic diastolic (congestive) heart failure; J96.11 Chronic respiratory failure with hypoxia; N28.1 Cyst of kidney, acquired; J44.9 Chronic obstructive pulmonary disease, unspecified; Z74.01 Bed confinement status; F17.210 Nicotine dependence, cigarettes, uncomplicated; R31.0 Gross hematuria; N40.1 Benign prostatic hyperplasia with lower urinary tract symptoms; G40.909 Epilepsy, unspecified, not intractable, without status epilepticus; R33.8 Other retention of urine; E11.9 Type 2 diabetes mellitus without complications; B95.2 Enterococcus as the cause of diseases classified elsewhere; F44.4 Conversion disorder with motor symptom or deficit; D64.9 Anemia, unspecified; I11.0 Hypertensive heart disease with heart failure; I48.91 Unspecified atrial fibrillation; Z87.440 Personal history of urinary (tract) infections; Z88.1 Allergy status to other antibiotic agents; Z79.899 Other long term (current) drug therapy; Z79.1 Long term (current) use of non-steroidal anti-inflammatories (NSAID); Z79.82 Long term (current) use of aspirin; Z79.891 Long term (current) use of opiate analgesic; Z90.49 Acquired absence of other specified parts of digestive tract; Z93.1 Gastrostomy status; Z82.49 Family history of ischemic heart disease and other diseases of the circulatory system; Z79.84 Long term (current) use of oral hypoglycemic drugs; Z87.11 Personal history of peptic ulcer disease
CPT/HCPCS: 36415; 71045; 74177; 80048; 80053; 81001; 83735; 84100; 85014; 85018; 85025; 85610; 85730; 86141; 86850; 86900; 86901; 86920; 87040; 87086; 87088; 87186; 94640; 96361; 96365; 96367; 96375; A4344; A4565; G0378; J1100; J1335; J1756; J1885; J2003; J2405; J2470; J2704

== ENCOUNTER 2025-05-18 11:35 | Emergency (ER) | payer OTHER, MEDICAID ==
[~2025-05-18] VITALS: Ht 160 cm; Wt 59.0 kg
[~2025-05-18 11:35] MED LIST changes: -ALBUAER3 IN; +AMOX200S10 PO; -ASPI81CH74 PO; -AZIT500T66 PO; -FIN5T GT; -FURO1TAB31 PO; -LACT10SO3 PO; -LEVE100S4 PO; -POTA-220 PO
[2025-05-18 12:17] LABS: Urine Protein, UAD Negative (Negative)
[2025-05-18] MEDS: SULFAMETH W/TRIMETHOPRIM(200/40MG) 5ML SUSP GT ONE (12:30)
--- NOTE | 2025-05-18 12:38 | ED.PDOC ---
History of Present Illness HPI Comments 54 y/o M is [id number] family for abnormal labs. Per family, patient has multiple comorbidities and was brought in for admission for IV antibiotics under instructions of his PCP after most recent routine lab work showed him having a rare UTI. Significant history includes: [place] catheter, complicated UTI with enterococcus, PEG tube, BPH, DM II, seizures, COPD with chronic hypoxic respiratory failure, neurocysticercosis, CHF diastolic, CVA and anemia. Only symptoms reported is a mild cough and a temperature of 99.7F at home, earlier, today. Chief Complaint: Urinary Time Seen by MD: 11:50 Primary Care Provider: LANNY Reviewed Notes: Nurses Notes, Medications, Allergies Allergies: Coded Allergies: Ceftriaxone (Verified Allergy, Unknown, 08/22/23) Home Meds Active Scripts Sulfamethoxazole-Trimethoprim (Bactrim) 10 Ml Iv, 10 ML GT BID for 10 Days, #200 CC Prov:AJAY COX MD 05/18/25 Amoxicillin & Pot Clavulanate (Amoclan) 200 Mg/5 Ml Nika, 400 MG PO BID for 7 Days, #140 ML Prov:MIGUEL ÁNGEL PINEDA MD 02/15/25 Reported Medications Lidocaine (Ztlido) 1.8 % Pad, 1.8 % EX, PAD 11/14/24 Budesonide (Inhalation) (Budesonide) 0.5 Mg/2 Ml Nika, 0.5 MG, ML 11/14/24 Meloxicam (Meloxicam) 7.5 Mg Tab, 1 TAB PO DAILY, #30 TAB 2 Refills 11/14/24 Alendronate Sodium (Alendronate Sodium) 35 Mg Tab, 1 TAB PO QWEEKLY, #4 TAB 11 Refills 11/14/24 [place]-3 Fatty Acids ([place]-3) Unknown Strength Cap, PO, CAP 11/14/24 Oxybutynin Chloride (Oxybutynin Chloride) 5 Mg Tab, 5 MG PO, TAB 11/14/24 Baclofen (Baclofen) 10 Mg/5 Ml Haley, 10 MG PO, ML 11/14/24 Mupirocin Calcium (Topical) (MUPIROCIN) 2 % Cre, 2 % EX, CRE 11/14/24 Acetaminophen (Acetaminophen) 325 Mg Tab, 500 MG PO Q6HP PRN for MILD PAIN for 30 Days, MG 0 Refills 11/14/24 Timolol Maleate (Timolol Maleate Ophthalmi) Unknown Strength Haley, ECTOR MTZ, #5 ML 5 Refills 11/14/24 Diclofenac Sodium (Topical) (Diclofenac Sodium) 2 % Haley, 3 % EX, ML 11/14/24 Cholecalciferol (VITAMIN D3) 5,000 Unit Tab, 5000 UNIT PO DAILY, TAB 01/16/24 Niacin (NIACIN ER) 500 Mg Tab, 500 MG PO DAILY, TAB 01/16/24 Ipratropium-Albuterol (Ipratropium [place]/Albut) 1 Haley Haley, 1 HALEY IN Q4HPRN PRN for SHORTNESS OF BREATH, ML 01/16/24 Cyanocobalamin (Vitamin B12) 1,000 Mcg Tab, 1000 MCG PO DAILY, TAB 01/16/24 Pantoprazole Sodium (PANTOPRAZOLE SODIUM) 40 Mg Inj, 40 MG, INJ 08/22/23 Clotrimazole (Clotrimazole) 1 % Cre, 1 APPLIC TOP Q12HR for 30 Days, APPLIC 08/22/23 Magnesium Oxide (MAGNESIUM OXIDE) 400 Mg Tab, 1 TAB PO DAILY, #30 TAB 5 Refills 08/08/23 Zinc W/ Vitamin C (Vitamin C+Zinc 15-60 mg) 1 Tab Tab, 1 TAB PO DAILY, TAB 08/08/23 Hydrocodone-Acetaminophen (Hydrocodone Bitartrate/AC 10-325 mg) 1 Tab Tab, 1 TAB PO BID PRN for PAIN SCALE 7 THRU 10, TAB 08/08/23 Pravastatin Sodium (PRAVACHOL TABLET) 20 Mg Tb, 10 TAB PO DAILY, #30 TAB 5 R efills 08/08/23 Folic Acid (Folic Acid) 1 Mg Tab, 1 MG PO DAILY for 30 Days, MG 08/08/23 Tamsulosin Hcl (Tamsulosin Hcl) 0.4 Mg Cap, 0.4 MG PO QPM for 30 Days, MG 02/05/22 Information Source: Patient Mode of Arrival: Wheelchair Severity: Moderate Timing: Hours Duration: Since onset Prehospital treatment: None Past Medical History PAST MEDICAL HISTORY: AFIB, CKF, COPD, DM, High Lipids, HTN, PUD, Seizures Surgical History: Cholecystectomy Family History Family History: Unknown Social History Smoker: Cigarettes, Less Than 1 Pack/Day Alcohol: Denies ETOH Use Drugs: Denies Drug Use Lives In: Home All Other Systems: Reviewed and Negative (as per HPI) Physical Exam General Appearance: Mild Distress HEENT: Normal ENT Inspection, PERRL/EOMI Neck: Full Range of Motion, Non-Tender, Normal, Normal Inspection Respiratory: Chest Non-Tender, Lungs Clear, No Accessory Muscle Use, No Respiratory Distress, Normal Breath Sounds, Other (Patient with COPD on O2 at home) Cardiovascular: No Edema, No JVD, No Murmur, No Gallop, Normal Peripheral Pulses, Regular Rate/Rhythm Breast Exam: Deferred Gastrointestinal: No Organomegaly, Non Tender, No Pulsatile Mass, Normal Bowel Sounds, Soft, Other (Patient has a G-tube) Genitalia: Deferred Pelvic: Deferred Rectal: Deferred Extremities: Other (Patient with left hemiplegia) 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 Was a procedure done?: No Differential Dx Considerations may include: Sepsis, UTI, among others X-Ray, Labs, Meds, VS Vital Signs Date Time Temp Pulse Resp B/P (MAP) Pulse Ox O2 Delivery O2 Flow Rate FiO2 05/18/25 11:41 99.1 85 16 104/58 93 99.1 Lab Test 05/18/25 12:39 05/18/25 11:58 Range/Units White Blood Count 8.8 4.4-10.8 10^3/uL Red Blood Count 4.20 L 4.5-5.90 10^6/uL Hemoglobin 12.6 L 13.5-17.5 g/dL Hematocrit 37.0 L 41.0-53.0 % Mean Corpuscular Volume 88.1 80.0-100.0 fL Mean Corpuscular Hemoglobin 30.0 28.0-32.0 pg Mean Corpuscular Hemoglobin Concent 34.1 32.0-36.0 g/dL Red Cell Distribution Width 14.5 H 11.8-14.3 % Platelet Count 249 140-450 10^3/uL Mean Platelet Volume 7.2 6.9-10.8 fL Neutrophils (%) (Auto) 76.0 37.0-80.0 % Lymphocytes (%) (Auto) 14.4 10.0-50.0 % Monocytes (%) (Auto) 8.5 0.0-12.0 % Eosinophils (%) (Auto) 0.9 0.0-7.0 % Basophils (%) (Auto) 0.2 0.0-2.0 % Neutrophils # (Auto) 6.7 1.6-8.6 10 ^3/uL Lymphocytes # (Auto) 1.3 0.4-5.4 10 ^3/uL Monocytes # (Auto) 0.7 0-1.3 10 ^3/uL Eosinophils # (Auto) 0.1 0-0.8 10 ^3/uL Basophils # (Auto) 0 0-0.2 10 ^3/uL Nucleated Red Blood Cells 0.1 % Sodium Level 139 136-145 mmol/L Potassium Level 3.8 3.5-5.1 mmol/L Chloride Level 96 L 98-107 mmol/L Carbon Dioxide Level 39 H 20-31 mmol/L Anion Gap 4 L 5-15 Blood Urea Nitrogen 11 9-23 mg/dL Creatinine 0.63 L 0.700-1.30 mg/dL Glomerular Filtration Rate Calc 112 >90 mL/min BUN/Creatinine Ratio 17.5 10.0-20.0 Serum Glucose 81 74-106 mg/dL Calcium Level 10.6 H 8.7-10.4 mg/dL Urine Color Light-yellow Yellow Urine Clarity Turbid H Clear Urine pH 7.5 5.0-9.0 Urine Specific [place] 1.007 1.001-1.035 Urine Protein Negative Negative Urine Ketones Negative Negative Urine Blood Negative Negative /uL Urine Nitrite Negative Negative Urine Bilirubin Negative Negative Urine Urobilinogen Normal Negative mg/dL Urine Leukocyte Esterase 2+ Negative /uL Urine RBC 1 0 - 3 /hpf Urine Microscopic WBC 8 H 0-3 /HPF Urine Squamous Epithelial Cells Few <5 /hpf Urine Bacteria Few H None Seen /hpf Urine Glucose Normal Normal mg/dL Current Medications Medications (Trade) Dose Ordered Sig/Ezequiel Route Start Time Stop Time Status Last Admin Trimethoprim/ Sulfamethoxazole (Bactrim Oral Suspension) 20 ml ONCE ONCE GT 05/18/25 12:30 05/18/25 12:31 DC 05/18/25 12:30 X-Ray, Labs, Meds, VS Comment Patient is well taking care of urine shows 2+ leukocyte esterase and bacteria Patient was treated to the G-tube and will be discharged home to continue the medication CBC normal Bmp be normal Time of 1ST Reevaluation: 12:20 Reevaluation 1ST: Unchanged Time of 2ND Reevaluation: 13:51 Reevaluation 2ND: Improved Consultation: PCP Patient Education/Counseling: Diagnosis, Treatment, Need For Follow Up Family Education/Counseling: Diagnosis, Treatment, Need For Follow Up SEPSIS Sepsis Screen Date sepsis recognized/suspect: May 18, 2025 Time Sepsis recognized/suspect: 1137 Recent Procedure: No On Antibiotic Therapy: No Respiratory Rate >20: No Heart Rate >90: No Temp<36 C (96.8 F) or >38.3 C: No SBP <90 or MAP <65 mmHG: No New Acute Mental Status Change: No Is the patient on CPAP, BIPAP,: No Physician Orders Urine Bacterial Culture (05/18/25 11:58) Vital Signs Date Time Temp Pulse Resp B/P (MAP) Pulse Ox O2 Delivery O2 Flow Rate FiO2 05/18/25 11:41 99.1 85 16 104/58 93 99.1 Laboratory Tests Test 05/18/25 12:39 White Blood Count 8.8 10^3/uL (4.4-10.8) Medications Medications Dose Ordered Sig/Ezequiel Route Start Time Stop Time Status Last Admin Dose Admin Trimethoprim/ Sulfamethoxazole 20 ml ONCE ONCE GT 05/18/25 12:30 05/18/25 12:31 DC 05/18/25 12:30 Departure 1 Departure Time of Disposition: 13:53 Impression: Primary Impression: Generalized weakness Additional Impressions: Urinary tract infection Qualified Codes: N30.00 - Acute cystitis without hematuria Left-sided weakness Seizure disorder Disposition: 01 HOME / SELF CARE / HOMELESS Condition: Fair Additional Instructions: Push fluids and follow up with your PCP and also your be Urology e-Prescriptions Sulfamethoxazole-Trimethoprim (Bactrim) 10 Ml Iv 10 ML GT BID for 10 Days, #200 CC Prov: AJAY COX MD 05/18/25 Discharged With: Self Critical Care Note Critical Care Time?: No Stability Stability form required: No Heart Score Heart Score: Heart Score Response (Comments) Value History N/A 0 EKG N/A 0 Age 45-64 1 Risk Factors >3 or Hx ASHD 2 Troponin N/A 0 Total 3 I personally scribed for AJAY COX MD ([email or web address]) on 05/18/25 at 12:38. Electronically submitted by Eh Magdaleno [email or web address]). AJAY COX MD May 18, 2025 12:38
[2025-05-18 13:14] LABS: Hematocrit 37.0 % (41.0-53.0); Hemoglobin 12.6 g/dL (13.5-17.5); Mean Corpuscular Hemoglobin 30.0 pg (28.0-32.0); Mean Corpuscular Volume 88.1 fL (80.0-100.0); Nucleated Red Blood Cells % 0.1 %
[2025-05-18 13:23] LABS: Potassium 3.8 mmol/L (3.5-5.1); Sodium 139 mmol/L (136-145)
[2025-05-18 13:24] LABS: Anion Gap 4 (5-15)
[2025-05-18 13:29] LABS: BUN/Creatinine Ratio 17.5 (10.0-20.0); Blood Urea Nitrogen 11 mg/dL (9-23); Glucose 81 mg/dL (74-106)
[2025-05-18 13:31] LABS: Calcium 10.6 mg/dL (8.7-10.4); Carbon Dioxide 39 mmol/L (20-31); Chloride 96 mmol/L (98-107)
[2025-05-18] MEDS ORDERED: [UNRECOGNIZED DRUG - CODE] GT (13:55)
[2025-05-18 14:07] VITALS: BP 103/59; PULSE 90; RESP 16; TEMP 98.5; O2SAT 94
== END 2025-05-18 14:37 | disposition home or self-care (01) ==
LOC: ER 11:42
DX: R53.1 Weakness (principal); N39.0 Urinary tract infection, site not specified; G40.909 Epilepsy, unspecified, not intractable, without status epilepticus; I11.0 Hypertensive heart disease with heart failure; N18.9 Chronic kidney disease, unspecified; E11.9 Type 2 diabetes mellitus without complications; I48.91 Unspecified atrial fibrillation; J44.9 Chronic obstructive pulmonary disease, unspecified; N40.0 Benign prostatic hyperplasia without lower urinary tract symptoms; F17.210 Nicotine dependence, cigarettes, uncomplicated; Z79.899 Other long term (current) drug therapy; Z86.73 Personal history of transient ischemic attack (TIA), and cerebral infarction without residual deficits; Z87.11 Personal history of peptic ulcer disease; Z87.440 Personal history of urinary (tract) infections; Z90.49 Acquired absence of other specified parts of digestive tract; Z88.1 Allergy status to other antibiotic agents
CPT/HCPCS: 36415; 80048; 81001; 82947; 85025; 87086

== ENCOUNTER 2025-05-20 14:30 | Inpatient (IN) | payer OTHER, MEDICAID ==
[~2025-05-20] VITALS: Ht 160 cm; Wt 66.4 kg
[~2025-05-20 14:30] MED LIST changes: +[UNRECOGNIZED DRUG - CODE] GT
--- NOTE | 2025-05-20 14:55 | ED.PDOC ---
History of Present Illness HPI Comments This is a 54-year-old male with past medical history of COPD on 2 L home oxygen, CHF, obstructive sleep apnea on CPAP, history of aspiration pneumonia , recurrent UTI referred from PCP Dr. Pompa for IV antibiotic for UTI. According to PCP patients recent urine culture on 05/13/2025 demonstrated Citrobacter brakki needs IV antibiotic. He had history of Neurosurgery and currently on G-tube for feeding. He discharged from [facility] on last Tuesday. Denies fever, chills, shortness of breath, abdominal pain or any altered bowel habit. PCP: Dr. Palacios Chief Complaint: Urinary Time Seen by MD: 14:33 Primary Care Provider: LANNY Allergies: Coded Allergies: Ceftriaxone (Verified Allergy, Unknown, 08/22/23) Home Meds Active Scripts Sulfamethoxazole-Trimethoprim (Bactrim) 10 Ml Iv, 10 ML GT BID for 10 Days, #200 CC Prov:AJAY COX MD 05/18/25 Amoxicillin & Pot Clavulanate (Amoclan) 200 Mg/5 Ml Nika, 400 MG PO BID for 7 Days, #140 ML Prov:MIGUEL ÁNGEL PINEDA MD 02/15/25 Reported Medications Lidocaine (Ztlido) 1.8 % Pad, 1.8 % EX, PAD 11/14/24 Budesonide (Inhalation) (Budesonide) 0.5 Mg/2 Ml Nika, 0.5 MG, ML 11/14/24 Meloxicam (Meloxicam) 7.5 Mg Tab, 1 TAB PO DAILY, #30 TAB 2 Refills 11/14/24 Alendronate Sodium (Alendronate Sodium) 35 Mg Tab, 1 TAB PO QWEEKLY, #4 TAB 11 Refills 11/14/24 [place]-3 Fatty Acids ([place]-3) Unknown Strength Cap, PO, CAP 11/14/24 Oxybutynin Chloride (Oxybutynin Chloride) 5 Mg Tab, 5 MG PO, TAB 11/14/24 Baclofen (Baclofen) 10 Mg/5 Ml Haley, 10 MG PO, ML 11/14/24 Mupirocin Calcium (Topical) (MUPIROCIN) 2 % Cre, 2 % EX, CRE 11/14/24 Acetaminophen (Acetaminophen) 325 Mg Tab, 500 MG PO Q6HP PRN for MILD PAIN for 30 Days, MG 0 Refills 11/14/24 Timolol Maleate (Timolol Maleate Ophthalmi) Unknown Strength Haley, ECTOR MTZ, #5 ML 5 Refills 11/14/24 Diclofenac Sodium (Topical) (Diclofenac Sodium) 2 % Haley, 3 % EX, ML 11/14/24 Cholecalciferol (VITAMIN D3) 5,000 Unit Tab, 5000 UNIT PO DAILY, TAB 01/16/24 Niacin (NIACIN ER) 500 Mg Tab, 500 MG PO DAILY, TAB 01/16/24 Ipratropium-Albuterol (Ipratropium [place]/Albut) 1 Haley Haley, 1 HALEY IN Q4HPRN PRN for SHORTNESS OF BREATH, ML 01/16/24 Cyanocobalamin (Vitamin B12) 1,000 Mcg Tab, 1000 MCG PO DAILY, TAB 01/16/24 Pantoprazole Sodium (PANTOPRAZOLE SODIUM) 40 Mg Inj, 40 MG, INJ 08/22/23 Clotrimazole (Clotrimazole) 1 % Cre, 1 APPLIC TOP Q12HR for 30 Days, APPLIC 08/22/23 Magnesium Oxide (MAGNESIUM OXIDE) 400 Mg Tab, 1 TAB PO DAILY, #30 TAB 5 Refills 08/08/23 Zinc W/ Vitamin C (Vitamin C+Zinc 15-60 mg) 1 Tab Tab, 1 TAB PO DAILY, TAB 08/08/23 Hydrocodone-Acetaminophen (Hydrocodone Bitartrate/AC 10-325 mg) 1 Tab Tab, 1 TAB PO BID PRN for PAIN SCALE 7 THRU 10, TAB 08/08/23 Pravastatin Sodium (PRAVACHOL TABLET) 20 Mg Tb, 10 TAB PO DAILY, #30 TAB 5 Refills 08/08/23 Folic Acid (Folic Acid) 1 Mg Tab, 1 MG PO DAILY for 30 Days, MG 08/08/23 Tamsulosin Hcl (Tamsulosin Hcl) 0.4 Mg Cap, 0.4 MG PO QPM for 30 Days, MG 02/05/22 Information Source: Patient, Legal Guardian Mode of Arrival: Ambulatory Severity: Moderate Timing: Days Duration: Since onset Prehospital treatment: None Past Medical History PAST MEDICAL HISTORY: AFIB, CKF, COPD, DM, High Lipids, HTN, PUD, Seizures Surgical History: Cholecystectomy Family History Family History: Unknown Social History Smoker: Cigarettes, Less Than 1 Pack/Day Alcohol: Denies ETOH Use Drugs: Denies Drug Use Lives In: Home Constitutional: denies: chills, diaphoresis, fatigue, fever, malaise, sweats, weakness, others EENTM: denies: blurred vision, double vision, ear bleeding, ear discharge, ear drainage, ear pain, ear ringing, eye pain, eye redness, hearing loss, mouth pain, mouth swelling, nasal discharge, nose bleeding, nose congestion, nose pain, photophobia, tearing, throat pain, throat swelling, voice changes, others Respiratory: reports: cough, shortness of breath; denies: hemoptysis, orthopnea, SOB at rest, SOB with excertion, stridor, wheezing, others Cardiovascular: denies: chest pain, dizzy spells, diaphoresis, Dyspnea on exertion, edema, irregular heart beat, left arm pain, lightheadedness, palpitations, PND, syncope, others Gastrointestinal: denies: abdomen distended, abdominal pain, blood streaked bowels, constipated, diarrhea, dysphagia, difficulty swallowing, hematemesis, melena, nausea, poor appetite, poor fluid intake, rectal bleeding, rectal pain, vomiting, others Genitourinary: reports: dysuria, urgency; denies: burning, flank pain, frequency, hematuria, incontinence, penile discharge, penile sore, pain, testicle pain, testicle swelling, others Neurological: denies: dizziness, fainting, headache, left sided numbness, left sided weakness, numbness, paresthesia, pre-existing deficit, right sided numbness, right sided weakness, seizure, speech problems, tingling, tremors, weakness, others Musculoskeletal: denies: back pain, gout, joint pain, joint swelling, muscle pain, muscle stiffness, neck pain, others Integumetry: denies: bruises, change in color, change in hair/nails, dryness, laceration, lesions, lumps, rash, wounds, others Allergic/Immunocompromised: denies: Difficulty Healing, Frequent Infections, Hives, Itching, others Hematologic/Lymphatic: denies: anemia, blood clots, easy bleeding, easy bruising, swollen glands, others Endocrine: denies: excessive hunger, excessive sweating, excessive thirst, excessive urination, flushing, intolerance to cold, intolerance to heat, unexplained weight gain, unexplained weight loss, others Psychiatric: denies: anxiety, bipolar disorder, depression, hopeless, panic disorder, schizophrenia, sleepless, suicidal, others Physical Exam General Appearance: Mild Distress HEENT: Normal ENT Inspection, Pharynx Normal, TMs Normal Neck: Full Range of Motion, Non-Tender, Normal, Normal Inspection Respiratory: Chest Non-Tender, Lungs Clear, No Accessory Muscle Use, No Respiratory Distress, Normal Breath Sounds Cardiovascular: No Edema, No JVD, No Murmur, No Gallop, Normal Peripheral Pulses, Regular Rate/Rhythm Breast Exam: Deferred Gastrointestinal: No Organomegaly, Non Tender, No Pulsatile Mass, Normal Bowel Sounds, Soft Genitalia: Deferred Pelvic: Deferred Rectal: Deferred Extremities: NOT DONE Neurologic: NOT DONE Cerebellar Function: NOT DONE Reflexes: NOT DONE Skin: NOT DONE Peripheral Pulses: 2+ carotid (R), 2+ carotid (L), 2+ femoral (R), 2+ femoral (L), 2+ dorsalis pedis (R), 2+ dorsalis pedis (L), 2+ Radial (R), 2+ Radial (L), 2+ Brachial (R), 2+ Brachial (L) Lymphatic: NOT DONE Was a procedure done? Was a procedure done?: No Differential Dx Considerations may include: UTI, cystitis, pneumonia X-Ray, Labs, Meds, VS Vital Signs Date Time Temp Pulse Resp B/P (MAP) Pulse Ox O2 Delivery O2 Flow Rate FiO2 05/20/25 14:32 97.8 79 15 110/67 96 97.8 Lab Test 05/20/25 16:30 Range/Units Urine Color Colorless Yellow Urine Clarity Clear Clear Urine pH 7.0 5.0-9.0 Urine Specific [place] 1.006 1.001-1.035 Urine Protein Negative Negative Urine Ketones Negative Negative Urine Blood Negative Negative /uL Urine Nitrite Negative Negative Urine Bilirubin Negative Negative Urine Urobilinogen Normal Negative mg/dL Urine Leukocyte Esterase 3+ Negative /uL Urine RBC <1 0 - 3 /hpf Urine Microscopic WBC 12 H 0-3 /HPF Urine Squamous Epithelial Cells Few <5 /hpf Urine Calcium Oxalate Crystals Few None Seen Urine Bacteria Few H None Seen /hpf Urine Glucose Normal Normal mg/dL X-Ray, Labs, Meds, VS Comment CHEST RADIOGRAPH Indication: COPD Technique: Single frontal view of the chest was obtained Comparison: XY CHEST PORTABLE on DOS: 02/11/25 FINDINGS: The cardiac silhouette is unremarkable. The lungs demonstrate perihilar airspace opacities. Bibasilar airspace opacities, more pronounced in the left lower lobe. The pulmonary vasculature is prominent. Possible small bilateral pleural effusions. There is no pneumothorax. IMPRESSION: As above Time of 1ST Reevaluation: 19:15 Reevaluation 1ST: Unchanged Patient Education/Counseling: Diagnosis, Treatment Family Education/Counseling: Diagnosis, Treatment SEPSIS Sepsis Screen Date sepsis recognized/suspect: May 20, 2025 Time Sepsis recognized/suspect: 1435 Recent Procedure: No On Antibiotic Therapy: No Respiratory Rate >20: No Heart Rate >90: No Temp<36 C (96.8 F) or >38.3 C: No SBP <90 or MAP <65 mmHG: No New Acute Mental Status Change: No Is the patient on CPAP, BIPAP,: No Physician Orders Urine Bacterial Culture (05/20/25 14:50) Chest Portable (05/20/25 14:50) Bladder (05/20/25 14:50) Vital Signs Date Time Temp Pulse Resp B/P (MAP) Pulse Ox O2 Delivery O2 Flow Rate FiO2 05/20/25 14:32 97.8 79 15 110/67 96 97.8 Departure 1 Departure Time of Disposition: 19:20 Impression: Primary Impression: UTI (urinary tract infection) Additional Impression: Pneumonia Disposition: 30 STILL A PATIENT Admit to: Med Surg Condition: Guarded Critical Care Note Critical Care Time?: No Stability Stability form required: KETURAH Callejas RESIDENT May 20, 2025 14:55
--- NOTE | 2025-05-20 15:48 | DVH ---
Technique: Real-time ultrasound images through the pelvis using a transabdominal transducer. Indication: recurrent UTI Comparison: 02/11/2025 Findings: Bladder volume 221 cc. Bladder wall measures approximately 3 mm. No focal bladder wall thickening see n. No free fluid seen in the provided images. Penile implant reservoir along the right aspect of the bladder. Impression: As above
--- NOTE | 2025-05-20 15:51 | DVH ---
CHEST RADIOGRAPH Indication: COPD Technique: Single frontal view of the chest was obtained Comparison: XY CHEST PORTABLE on DOS: 02/11/25 FINDINGS: The cardiac silhouette is unremarkable. The lungs demonstrate perihilar airspace opacities. Bibasilar airspace opacities, more pronounced in the left lower lobe. The pulmonary vasculature is prominent. Possible small bilateral pleural effusions. There is no pneumothorax. IMPRESSION: As above
[2025-05-20 17:25] LABS: Urine Protein, UAD Negative (Negative)
[2025-05-20] MEDS ORDERED: ONDANSETRON HCL 4 MG/2 ML VIAL IV PRN (20:15)
[2025-05-20 20:32] LABS: Hematocrit 35.2 % (41.0-53.0); Hemoglobin 12.1 g/dL (13.5-17.5); Mean Corpuscular Hemoglobin 30.1 pg (28.0-32.0); Mean Corpuscular Volume 87.7 fL (80.0-100.0); Nucleated Red Blood Cells % 0.1 %
[2025-05-20 20:46] LABS: Potassium 4.1 mmol/L (3.5-5.1); Sodium 137 mmol/L (136-145)
[2025-05-20 20:47] LABS: Anion Gap 5 (5-15)
[2025-05-20 20:52] LABS: BUN/Creatinine Ratio 21.4 (10.0-20.0); Blood Urea Nitrogen 12 mg/dL (9-23)
[2025-05-20 21:34] LABS: Calcium 10.6 mg/dL (8.7-10.4); Carbon Dioxide 39 mmol/L (20-31); Chloride 93 mmol/L (98-107); Glucose 163 mg/dL (74-106)
--- NOTE | 2025-05-20 21:46 | DVHHP2 ---
History of Present Illness Reason for Visit: Urinary tract infection History of Present Illness 54-year-old male presents for evaluation of urinary tract infection. Patient was sent by his primary care provider to be evaluated and possibly admitted for IV antibiotics for recurrent urinary tract infection. No fever or chills. No abdominal pain. Past Medical History Diabetes mellitus, dyslipidemia, COPD, chronic kidney disease, AFib, hypertension, seizures Past Surgical History Cholecystectomy, peg tube Family History Noncontributory Smoke: <1 pack per day ALCOHOL: none Drugs: None Lives: with Family Review of Systems Review of Systems Review of systems are currently negative otherwise addressed in HPI. Allergies: Coded Allergies: Ceftriaxone (Verified Allergy, Unknown, 08/22/23) Medications Current Medications Medications Dose Ordered Sig/Ezequiel Route Start Time Stop Time Status Last Admin Dose Admin Patient Own Medication 1 grams DAILY IV 05/21/25 10:00 UNV Ondansetron HCl 4 mg Q4HP PRN IV 05/20/25 20:15 UNV Enoxaparin Sodium 40 mg DAILY SC 05/21/25 10:00 UNV Pantoprazole Sodium 40 mg DAILY IV 05/21/25 10:00 UNV Exam Vital Signs Vital Signs Date Time Temp Pulse Resp B/P (MAP) Pulse Ox O2 Delivery O2 Flow Rate FiO2 05/20/25 14:32 97.8 79 15 110/67 96 97.8 Exam Gen: 54-year-old male in no apparent distress. Skin: Warm, dry, normal color and texture, no rash. HEENT: Normocephalic atraumatic, mucous membranes moist and pink. Neck: Cervical and supraclavicular nodes normal without enlargement, trachea is midline, thyroid gland is normal without masses. Pulmonary: Clear to auscultation and percussion bilaterally. Cardiac: Regular rate and rhythm. No murmur Abdomen: Soft, nontender, nondistended, bowel sounds present all 4 quadrants, no guarding, no rigidity, no organomegaly. Extremities: No cyanosis, clubbing, no edema Neuro: Cranial nerves II through XII grossly intact, normal affect and speech, no focal motor deficits. Labs/Xrays ORDERING PHYSICIAN: KETURAH HAWKINS PROCEDURE(s): CXRP - CHEST PORTABLE REASON: COPD ORDER NUMBER(s): [id number], ACCESSION NUMBER(s): [id number] CHEST RADIOGRAPH Indication: COPD Technique: Single frontal view of the chest was obtained Comparison: XY CHEST PORTABLE on DOS: 02/11/25 FINDINGS: The cardiac silhouette is unremarkable. The lungs demonstrate perihilar airspace opacities. Bibasilar airspace opacities, more pronounced in the left lower lobe. The pulmonary vasculature is prominent. Possible small bilateral pleural effusions. There is no pneumothorax. IMPRESSION: As above Labs Test 05/20/25 20:22 05/20/25 16:30 Range/Units White Blood Count 6.0 # 4.4-10.8 10^3/uL Red Blood Count 4.01 L 4.5-5.90 10^6/uL Hemoglobin 12.1 L 13.5-17.5 g/dL Hematocrit 35.2 L 41.0-53.0 % Mean Corpuscular Volume 87.7 80.0-100.0 fL Mean Corpuscular Hemoglobin 30.1 28.0-32.0 pg Mean Corpuscular Hemoglobin Concent 34.3 32.0-36.0 g/dL Red Cell Distribution Width 14.2 11.8-14.3 % Platelet Count 237 140-450 10^3/uL Mean Platelet Volume 7.0 6.9-10.8 fL Neutrophils (%) (Auto) 64.5 37.0-80.0 % Lymphocytes (%) (Auto) 27.1 10.0-50.0 % Monocytes (%) (Auto) 6.8 0.0-12.0 % Eosinophils (%) (Auto) 1.3 0.0-7.0 % Basophils (%) (Auto) 0.3 0.0-2.0 % Neutrophils # (Auto) 3.9 1.6-8.6 10 ^3/uL Lymphocytes # (Auto) 1.6 0.4-5.4 10 ^3/uL Monocytes # (Auto) 0.4 0-1.3 10 ^3/uL Eosinophils # (Auto) 0.1 0-0.8 10 ^3/uL Basophils # (Auto) 0 0-0.2 10 ^3/uL Nucleated Red Blood Cells 0.1 % Sodium Level 137 136-145 mmol/L Potassium Level 4.1 3.5-5.1 mmol/L Chloride Level 93 L 98-107 mmol/L Carbon Dioxide Level 39 H 20-31 mmol/L Anion Gap 5 5-15 Blood Urea Nitrogen 12 9-23 mg/dL Creatinine 0.56 L 0.700-1.30 mg/dL Glomerular Filtration Rate Calc 116 >90 mL/min BUN/Creatinine Ratio 21.4 H 10.0-20.0 Serum Glucose 163 H 74-106 mg/dL Calcium Level 10.6 H 8.7-10.4 mg/dL B-Type Natriuretic Peptide 7.06 0-100 pg/mL Urine Color Colorless Yellow Urine Clarity Clear Clear Urine pH 7.0 5.0-9.0 Urine Specific [place] 1.006 1.001-1.035 Urine Protein Negative Negative Urine Ketones Negative Negative Urine Blood Negative Negative /uL Urine Nitrite Negative Negative Urine Bilirubin Negative Negative Urine Urobilinogen Normal Negative mg/dL Urine Leukocyte Esterase 3+ Negative /uL Urine RBC <1 0 - 3 /hpf Urine Microscopic WBC 12 H 0-3 /HPF Urine Squamous Epithelial Cells Few <5 /hpf Urine Calcium Oxalate Crystals Few None Seen Urine Bacteria Few H None Seen /hpf Urine Glucose Normal Normal mg/dL SEPSIS Sepsis Screen Date sepsis recognized/suspect: May 20, 2025 Time Sepsis recognized/suspect: 1434 Recent Procedure: No On Antibiotic Therapy: No Respiratory Rate >20: No Heart Rate >90: No Temp<36 C (96.8 F) or >38.3 C: No SBP <90 or MAP <65 mmHG: No New Acute Mental Status Change: No Is the patient on CPAP, BIPAP,: No Physician Orders Urine Bacterial Culture (05/20/25 14:50) Chest Portable (05/20/25 14:50) Bladder (05/20/25 14:50) (Nf) Ertapenem (05/21/25 10:00) Basic Metabolic Panel (05/21/25 04:00) Admit (05/20/25 20:02) Ondansetron Hcl (Zofran) (05/20/25 20:15) Enoxaparin Sodium (Lovenox) (05/21/25 10:00) Condition: Stable (05/20/25 20:02) Bedrest With Bathroom Privileg (05/20/25 20:02) Pantoprazole (Protonix) (05/21/25 10:00) Consult For Nutrition (05/20/25 21:34) Albuterol Medneb (Ventolin Medneb) (05/20/25 21:45) Ipratropium Medneb (Atrovent Medneb) (05/20/25 21:45) Levetiracetam Oral Solution (Keppra Oral (05/20/25 22:00) Vital Signs Date Time Temp Pulse Resp B/P (MAP) Pulse Ox O2 Delivery O2 Flow Rate FiO2 05/20/25 14:32 97.8 79 15 110/67 96 97.8 Laboratory Tests Test 05/20/25 20:22 White Blood Count 6.0 10^3/uL (4.4-10.8) # Assessment/Plan Assessment/Plan Assessment Complicated UTI Questionable pneumonia COPD Peg tube dependent History of seizures Plan Admit the patient to [facility] to the hospitalist Urine bacterial culture pending Ertapenem Resume home medications Continue treatment per orders. Plan discussed with: Daughter My Orders Orders - GABRIELLE FERNANDO Procedure Category Date Status Time (Nf) Ertapenem PHA 05/21/25 Logged 10:00 Basic Metabolic Panel LAB 05/21/25 Verified 04:00 Admit ADMIT 05/20/25 Transmitted 20:02 Ondansetron Hcl PHA 05/20/25 Logged (Zofran) 20:15 Enoxaparin Sodium PHA 05/21/25 Logged (Lovenox) 10:00 Condition: Stable ZARINA 05/20/25 In Process 20:02 Bedrest With Bathroom ZARINA 05/20/25 In Process Privileg 20:02 Pantoprazole PHA 05/21/25 Logged (Protonix) 10:00 Consult For Nutrition NOURISH 05/20/25 Transmitted 21:34 Albuterol Medneb PHA 05/20/25 Transmitted (Ventolin Medneb) 21:45 Ipratropium Medneb PHA 05/20/25 Transmitted (Atrovent Medneb) 21:45 Levetiracetam Oral PHA 05/20/25 Transmitted Solution (Keppra Oral 22:00 Date of Service: May 20, 2025 Billing Provider: GABRIELLE FERNANDO Common Visit Codes: [id number] INP/OBS CARE (HIGH) GABRIELLE FERNANDO May 20, 2025 21:46
[2025-05-20] MEDS: IPRATROPIUM BROM 0.5 MG/2.5ML INH SOL NEB PRN (22:32)
[2025-05-20] MEDS: ALBUTEROL SULF 2.5 MG/0.5ML(0.5%) NEB SOLN NEB PRN (22:33)
[2025-05-20 22:54] VITALS: BP 109/61; PULSE 81; RESP 18; TEMP 98.2; O2SAT 97
[2025-05-20 22:59] VITALS: O2SAT 97
[2025-05-21] VITALS (15 sets, daily range): BP systolic 92–116; BP diastolic 55–74; PULSE 65–96; RESP 17–20; TEMP 97.2–99; O2SAT 84–100
[2025-05-21] MEDS: PIPERACILLIN-TAZOB 3.375GM 100 ML IV ONE (01:32)
[2025-05-21] MEDS: VANCOMYCIN 1GM/200ML PM 200 ML IV ONE (02:47)
[2025-05-21] MEDS ORDERED: FINA5TAB4 PO (03:59)
[2025-05-21] MEDS ORDERED: FLUT1AER3 INH (04:03)
[2025-05-21] MEDS ORDERED: PRED10TA PO (04:03)
[2025-05-21] MEDS ORDERED: ACET-6 PO (04:03)
[2025-05-21] MEDS ORDERED: [UNRECOGNIZED DRUG - CODE] TOP (04:03)
[2025-05-21] MEDS ORDERED: LEVE5SOL PO (04:03)
[2025-05-21] MEDS ORDERED: CIPR250T26 PO (04:03)
[2025-05-21] MEDS ORDERED: TIMO0.5S32 EACHEYE (04:03)
[2025-05-21] MEDS ORDERED: OMEG-86 PO (04:03)
[2025-05-21] MEDS ORDERED: KETO2CRE4 TOP (04:03)
[2025-05-21] MEDS ORDERED: PRAV20TA3 GT (04:04)
[2025-05-21] MEDS ORDERED: FURO20TA4 PO (04:05)
[2025-05-21] MEDS ORDERED: CHOLTAB11 PO (04:05)
[2025-05-21] MEDS ORDERED: BACL10TA PO (04:05)
[2025-05-21] MEDS ORDERED: POTA10TA48 PO (04:11)
[2025-05-21] MEDS ORDERED: NIAC500T9 PO (04:11)
[2025-05-21] MEDS ORDERED: MAGN241.4 PO (04:11)
[2025-05-21] MEDS ORDERED: [UNRECOGNIZED DRUG - CODE] PO (04:11)
[2025-05-21] MEDS ORDERED: FIN5T PO (04:15)
--- NOTE | 2025-05-21 08:30 | DVHPNRES ---
Progress Note Date Seen: May 21, 2025 Resident Creating Document: WENDY BLANKENSHIP RESIDENT Medical Necessity Reason Pt with a Central, PICC or Fol: No Subjective Review of Systems Korey Kate is a 54-year-old male with past medical history of COPD group E, recurrent UTI, recurrent pneumonia, neurocysticercosis, presented to the ER after PCP diagnosed him with UTI requiring IV antibiotics. Reportedly, he went to see his PCP he performed a urine culture, reviewing resistant microorganism requiring IV antibiotics, for which he seeked care in the ER. Based on conversation between primary provider and ER physician, ertapenem was initiated. He was examined at bedside today. Today, he complained of cough, with productive mucus for the last 2 weeks. He uses 2 L oxygen at home with CPAP at night. He also complained of chronic urinary obstruction. Reported multiple past episodes of UTIs and pneumonia. Denies history of fever, chills, dysuria. He reports undergoing multiple shunt placements for surgical treatment for neurocysticercosis. PMHx: COPD group E, recurrent UTI, recurrent pneumonia, neurocysticercosis PSHx: Surgical management of neurocysticercosis with multiple shunt placement. Social history: Lives at home, cared by his . Uses wheelchair for ambulation. Allergic history: Ceftriaxone ROS Constitutional: Denies recent weight loss, fever and chills. HEENT: Reports hearing better in the left ear compared to the right ear Respiratory: Complains of cough, phlegm with white mucus for the last 2 weeks. Denies shortness of breath and cough Cardiovascular: Denies chest discomfort or palpitations GI: Denies abdominal pain, nausea, vomiting and diarrhea. : Chronic urinary obstruction. Musculoskeletal: Denies myalgias and joint pain Skin: Multiple surgical scars. Neurological: Denies dizziness, headache, vision or hearing problems Objective vital signs Vital Sign Date Time Temp Pulse Resp B/P (MAP) Pulse Ox O2 Delivery O2 Flow Rate FiO2 05/21/25 08:16 100 Nasal Cannula 4.0 05/21/25 08:16 36 05/21/25 06:42 65 05/21/25 05:00 97.8 17 92/55 (67) 97.8 Total Intake and Output 05/20/25 05/20/25 05/21/25 15:00 23:00 07:00 Intake Total 300 ml Balance 300 ml medications Current Medications Medications Dose Ordered Sig/Ezequiel Route Start Time Stop Time Status Last Admin Dose Admin Ondansetron HCl 4 mg Q4HP PRN IV 05/20/25 20:15 Enoxaparin Sodium 40 mg DAILY SC 05/21/25 10:00 Pantoprazole Sodium 40 mg DAILY IV 05/21/25 10:00 Albuterol 2.5 mg Q6HPRN PRN NEB 05/20/25 21:45 05/20/25 22:33 2.5 MG Ipratropium [place] 0.5 mg Q6HPRN PRN NEB 05/20/25 21:45 05/20/25 22:32 0.5 MG Levetiracetam 500 mg BID GT 05/20/25 22:00 Ertapenem 1 gm/ Sodium Chloride 50 ml @ 100 mls/hr DAILY IV 05/21/25 10:00 Examination General: Patient alert and oriented in person, place and time. Patient following commands. HEENT: Normocephalic, atraumatic, moist mucous membranes Respiratory/pulmonary: Mildly reduced breath sounds bilaterally, no associated crackles or wheezes. Cardiovascular: Normal heart sounds S1 and S2 with no associated murmurs Abdomen: Gastrostomy-tube in place, no erythema or swelling around the opening. Genitourinary: Penile implant palpable. No foul-smelling discharge. Extremities: There is no peripheral edema present at the lower extremities. Skin: Multiple healed surgical scars from neck to feet from shunt surgery Neurological: Intact cranial nerves with no focal neurologic deficits laboratory and microbiology Laboratory Tests 05/20/25 20:22 Test 05/20/25 20:22 Range/Units Serum Glucose 163 H 74-106 mg/dL Problem List/Assessment/Plan Problem List/Assessment/Plan COPD exacerbation Community-acquired Pneumonia, due to Gram-negative/Gram-positive bacteria Hypoxic hypercapnic respiratory respiratory failure due to above CXR reveals : The lungs demonstrate perihilar airspace opacities. Bibasilar airspace opacities, more pronounced in the left lower lobe. The pulmonary vasculature is prominent. Possible small bilateral pleural effusions. On 4 L oxygen continue as needed BiPAP Continue med neb Influenza, COVID serology ordered History of Complicated UTI History of recurrent UTI UA positive for UTI Bladder USC revealed Bladder volume 221 cc. Bladder wall measures approximately 3 mm. No focal bladder wall thickening seen. No free fluid seen in the provided images. Penile implant reservoir along the right aspect of the bladder. Patient is allergic to ceftriaxone Continue IV ertapenem Urine culture pending History of seizure Continue levetiracetam Normocytic normochromic anemia, unspecified BPH On finasteride tamsulosin Glaucoma E/D timolol History of intertrigo as needed ketoconazole topical History of Vitamin d deficiency History of dyslipidemia ?DM vs prediabetes: hba1c Possible osteoarthritis Chronic back pain History of Chronic constipation DIET: Enteral nutritional formula, Jevity through G-tube DVT PROPHYLAXIS: Lovenox GI PROPHYLAXIS: Protonix CODE STATUS: Goals of care discussed with patient at bedside for more than 35 minutes. DISPOSITION: Med/surge Patient's status and plan discussed with the patient. Case discussed with Dr. Hernandez. Plan discussed with: Patient (And daughter) Date of Service: May 21, 2025 Billing Provider: SUJEY HERNANDEZ MD Common Visit Codes: [id number] INP/OBS CARE(HIGH) WENDY BLANKENSHIP RESIDENT May 21, 2025 08:30 SUJEY HERNANDEZ MD May 26, 2025 20:03
[2025-05-21 09:18] LABS: Potassium 4.2 mmol/L (3.5-5.1); Sodium 140 mmol/L (136-145)
[2025-05-21 09:19] LABS: Calcium 10.3 mg/dL (8.7-10.4)
[2025-05-21 09:24] LABS: BUN/Creatinine Ratio 15.9 (10.0-20.0); Blood Urea Nitrogen 10 mg/dL (9-23); Glucose 87 mg/dL (74-106); INR 0.97 (0.9-1.15); Prothrombin Time 10.3 sec (9.3-11.8)
[2025-05-21] MEDS: PANTOPRAZOLE 40 MG/10 ML VIAL INJ IV SCH (09:47)
[2025-05-21] MEDS: ERTAPENEM SOD INJ 1 GM in SODIUM CHL 0.9% 50 ML IV SCH (09:47)
[2025-05-21] MEDS: ENOXAPARIN SOD 40 MG/0.4 ML SYRINGE SC SCH (09:48)
[2025-05-21] MEDS ORDERED: PATIENTS OWN MEDICATION (ertapenem 1 GRAMS) IV SCH (10:00)
[2025-05-21 10:25] LABS: Anion Gap 3.99999 (5-15); Chloride 96 mmol/L (98-107)
[2025-05-21 10:27] LABS: Carbon Dioxide > 40 mmol/L (20-31)
[2025-05-21 12:09] LABS: Base Excess 8.4 mmol/L (-2.0-3.0)
[2025-05-21 15:07] LABS: Base Excess 11.6 mmol/L (-2.0-3.0)
[2025-05-21] MEDS: Jevity 1.2 Cal/Fiber 1 Liter GT SCH (18:13)
[2025-05-21] MEDS: IPRATROPIUM BROM 0.5 MG/2.5ML INH SOL NEB SCH (18:56)
[2025-05-21] MEDS: ALBUTEROL SULF 2.5 MG/0.5ML(0.5%) NEB SOLN NEB SCH (18:56)
[2025-05-21] MEDS ORDERED: TIMOLOL MAL 0.5% OPTH(EYE) SOL 5ML EACHEYE ONE (19:00)
[2025-05-21 20:20] LABS: COVID19 ANTIGEN SOFIA FIA NEGATIVE (NEGATIVE)
[2025-05-21] MEDS ORDERED: TIMOLOL MAL 0.5% OPTH(EYE) SOL 5ML EACHEYE SCH (22:00)
[2025-05-21] MEDS: TIMOLOL MAL 0.5% OPTH(EYE) SOL 5ML EACHEYE SCH (22:23)
[2025-05-22] VITALS (20 sets, daily range): BP systolic 90–107; BP diastolic 54–66; PULSE 78–104; RESP 12–20; TEMP 97.6–98.7; O2SAT 90–100
[2025-05-22 08:34] LABS: Hematocrit 38.3 % (41.0-53.0); Hemoglobin 12.8 g/dL (13.5-17.5); Mean Corpuscular Hemoglobin 29.5 pg (28.0-32.0); Mean Corpuscular Volume 88.2 fL (80.0-100.0); Nucleated Red Blood Cells % 0.0 %
[2025-05-22 08:56] LABS: Alkaline Phosphatase 85 U/L (46-116); Anion Gap 5 (5-15); BUN/Creatinine Ratio 16.9 (10.0-20.0); Blood Urea Nitrogen 10 mg/dL (9-23); Potassium 4.0 mmol/L (3.5-5.1); Sodium 139 mmol/L (136-145); Total Protein 7.2 g/dL (5.7-8.2)
[2025-05-22 08:57] LABS: Albumin 4.4 g/dL (3.2-4.8)
[2025-05-22 09:00] LABS: Alanine Aminotransferase 9 U/L (7-40); Bilirubin, Total 0.3 mg/dL (0.2-1.0); Calcium 10.5 mg/dL (8.7-10.4); Carbon Dioxide 39 mmol/L (20-31); Chloride 95 mmol/L (98-107); Glucose 135 mg/dL (74-106)
[2025-05-22 11:57] LABS: Base Excess 12.1 mmol/L (-2.0-3.0)
[2025-05-22] MEDS ORDERED: VANCOMYCIN PER PHARMACY 0 MG IV SCH (12:15)
--- NOTE | 2025-05-22 12:21 | DVHPN2 ---
Progress Note Date Seen: May 22, 2025 Medical Necessity Reason Pt with a Central, PICC or Fol: No Subjective Patient reports: No new complaints Review of Systems: HEENT:Normal, CVS:Normal, RESPIRATORY:Normal, GI:Normal, :Normal, MSK:Normal, NEURO:Normal Objective vital signs Vital Sign Date Time Temp Pulse Resp B/P (MAP) Pulse Ox O2 Delivery O2 Flow Rate FiO2 05/22/25 11:36 91 90 Facial BiPAP Mask 90 05/22/25 09:46 3 05/22/25 09:00 98.7 12 90/59 (69) 98.7 Total Intake and Output 05/21/25 05/21/25 05/22/25 15:00 23:00 07:00 Intake Total 50 ml 500 ml 0 ml Balance 50 ml 500 ml 0 ml medications Current Medications Medications Dose Ordered Sig/Ezequiel Route Start Time Stop Time Status Last Admin Dose Admin Ondansetron HCl 4 mg Q4HP PRN IV 05/20/25 20:15 Enoxaparin Sodium 40 mg DAILY SC 05/21/25 10:00 05/22/25 08:58 40 MG Pantoprazole Sodium 40 mg DAILY IV 05/21/25 10:00 05/22/25 08:58 40 MG Levetiracetam 500 mg BID GT 05/20/25 22:00 05/22/25 08:58 500 MG Ertapenem 1 gm/ Sodium Chloride 50 ml @ 100 mls/hr DAILY IV 05/21/25 10:00 05/22/25 08:58 100 MLS/HR Enteral Nutritional Formula 1,000 ml 30ML/HR GT 05/21/25 10:45 05/21/25 18:13 1,000 ML Albuterol 2.5 mg Q6HR NEB 05/21/25 18:00 05/22/25 11:33 2.5 MG Ipratropium [place] 0.5 mg Q6HR NEB 05/21/25 18:00 05/22/25 11:34 0.5 MG Timolol Maleate 1 drop BID EACHEYE 05/21/25 22:00 05/22/25 08:58 1 DROP Timolol Maleate 1 drop BID EACHEYE 05/21/25 22:00 UNV Examination: GENERAL:Normal, HEENT:Normal, NECK:Normal, LUNGS:Normal, LUNGS:Abnormal (on bipap), CVS:Normal, ABDOMEN:Normal, MSK:Normal, SKIN:Normal, NEURO:Normal, :Normal laboratory and microbiology Laboratory Tests 05/22/25 07:28 Test 05/22/25 07:28 Range/Units Serum Glucose 135 H 74-106 mg/dL Microbiology Date/Time Source Procedure Growth Status 05/21/25 15:20 Urine - Catheterized Urine Culture - Preliminary Resulted Problem List/Assessment/Plan Problem List/Assessment/Plan * uti ?sepsis: iv vanc, iv meropenem * Benign prostatic hypertrophy. * Diabetes mellitus: ssi * History of seizure disorder: on keppra * Previous ventriculoperitoneal shunt. * History of neurocysticercosis. * Chronic obstructive pulmonary disease with exacerbation: iv steroids * acute on chronic resp failure: bipap/abg, chest xray * chronic diastolic heart failure. * Bedbound status with functional paraplegia. * peg tube: feedings advance care planning- full code- time spent 19 mins Plan discussed with: Patient, Spouse My Orders My Orders Orders - GABRIELLE BOLAÑOS MD Procedure Category Date Status Time Abg W/ Co-Ox RT 05/22/25 Logged 11:52 Chest Xray 1 View XY 05/22/25 Logged 12:10 Abg W/ Co-Ox RT 05/22/25 Logged 14:00 BIPAP RT 05/22/25 Logged 12:15 Vancomycin Per PHA 05/22/25 Transmitted Pharmacy 12:15 Meropenem 1gm Ivpb X PHA 05/22/25 Transmitted ONE 12:15 Meropenem 1gm PHA 05/22/25 Transmitted Q8h(Gfr>50) 14:00 Lorazepam 2mg/Ml Inj PHA 05/22/25 Transmitted (Ativan Inj) 12:15 Methylprednisolone PHA 05/22/25 Transmitted Sod Succ (Solu Medrol 12:15 Methylprednisolone PHA 05/22/25 Transmitted Sod Succ (Solu Medrol 22:00 Albuterol Medneb PHA 05/22/25 Transmitted (Ventolin Medneb) 14:00 Ipratropium Medneb PHA 05/22/25 Transmitted (Atrovent Medneb) 14:00 Complete Blood Count LAB 05/23/25 Verified 06:00 Comprehensive LAB 05/23/25 Verified Metabolic Panel 06:00 Chest Portable XY 05/23/25 Transmitted 06:00 Abg W/ Co-Ox RT 05/23/25 Transmitted 06:00 Critical Care Time (mins): 41 (critical care time excluding procedures is 41 mins) Date of Service: May 22, 2025 Billing Provider: GABRIELLE BOLAÑOS MD Common Visit Codes: [id number] CARE 30-74 MIN GABRIELLE BOLAÑOS MD May 22, 2025 12:20
--- NOTE | 2025-05-22 12:46 | DVH ---
CHEST RADIOGRAPH Indication: ELEVATED CO2 LEVELS Technique: Single frontal view of the chest was obtained Comparison: XY CHEST PORTABLE on DOS: 05/20/25, XY CHEST PORTABLE on DOS: 02/11/25, XY CHEST PORTABLE on DOS: 01/25/24, XY CHEST PORTABLE on DOS: 01/24/24, XY CHEST PORTABLE on DOS: 01/23/24, XY CHEST PORTABLE on DOS: 05/20/25 FINDINGS: The cardiac silhouette is unremarkable. The lungs demonstrate perihilar airspace opacities. Bibasilar airspace opacities, more pronounced in the left lower lobe. The pulmonary vasculature is prominent. Worsening effusions and pulmonary edema. IMPRESSION: Worsening pulmonary edema.
[2025-05-22] MEDS: LACTULOSE 20Gm/30ML SOLN PO ONE (13:10)
[2025-05-22] MEDS: MEROPENEM 1GM IVPB 50 ML IV ONE (13:11)
[2025-05-22] MEDS: methylPREDNISolone SOD SUCC 125 MG/2 ML VL IV ONE (13:11)
[2025-05-22] MEDS: VANCOMYCIN 1GM/200ML PM 200 ML IV ONE (13:57)
[2025-05-22 14:00] LABS: Base Excess 13.4 mmol/L (-2.0-3.0)
[2025-05-22] MEDS: IPRATROPIUM BROM 0.5 MG/2.5ML INH SOL NEB SCH (14:21)
[2025-05-22] MEDS: ALBUTEROL SULF 2.5 MG/0.5ML(0.5%) NEB SOLN NEB SCH (14:21)
[2025-05-22] MEDS: ACETAMINOPHEN 650 mg PER 20.3 mL UD GT PRN (18:02)
[2025-05-22] MEDS: LACTULOSE 20Gm/30ML SOLN PO SCH (21:08)
[2025-05-22] MEDS: MEROPENEM 1GM IVPB 50 ML IV SCH (21:08)
[2025-05-22] MEDS: methylPREDNISolone SOD SUCC 40 MG/ML VL IV SCH (21:08)
[2025-05-22] MEDS: LORazepam 2MG/ML-1ML VIAL IV PRN (21:08)
[2025-05-23] VITALS (64 sets, daily range): BP systolic 68–148; BP diastolic 40–75; PULSE 68–99; RESP 14–24; TEMP 97.2–97.8; O2SAT 87–100
[2025-05-23] MEDS: VANCOMYCIN 1GM/250ML KIT 250 ML IV SCH (00:36)
[2025-05-23 06:34] LABS: Base Excess 7.7 mmol/L (-2.0-3.0)
--- NOTE | 2025-05-23 06:42 | DVH ---
CHEST RADIOGRAPH Indication: copd Technique: Single frontal view of the chest was obtained Comparison: XY CHEST XRAY 1 VIEW on DOS: 05/22/25 FINDINGS: Lines and Tubes: None Lungs: Pulmonary vascular congestion is similar to prior study. Pleura: Stable bilateral pleural effusions. No pneumothorax. Cardiomediastinal contours: Stable Cardiovascular silhouette. Bones: No acute osseous abnormality. IMPRESSION: 1. Stable pulmonary vascular congestion and pleural effusions.
[2025-05-23 06:45] LABS: Hematocrit 34.0 % (41.0-53.0); Hemoglobin 11.7 g/dL (13.5-17.5); Mean Corpuscular Hemoglobin 30.5 pg (28.0-32.0); Mean Corpuscular Volume 88.9 fL (80.0-100.0); Nucleated Red Blood Cells % 0.0 %
[2025-05-23 07:11] LABS: Alanine Aminotransferase 29 U/L (7-40); Albumin 4.3 g/dL (3.2-4.8); Alkaline Phosphatase 82 U/L (46-116); Anion Gap 8 (5-15); BUN/Creatinine Ratio 23.1 (10.0-20.0); Blood Urea Nitrogen 15 mg/dL (9-23); Calcium 10.2 mg/dL (8.7-10.4); Chloride 99 mmol/L (98-107); Potassium 4.2 mmol/L (3.5-5.1); Sodium 142 mmol/L (136-145); Total Protein 7.1 g/dL (5.7-8.2)
[2025-05-23 07:13] LABS: Bilirubin, Total 0.2 mg/dL (0.2-1.0); Carbon Dioxide 35 mmol/L (20-31); Glucose 125 mg/dL (74-106)
[2025-05-23] MEDS: FUROSEMIDE 20 MG/2 ML VIAL IV ONE (11:04)
[2025-05-23 11:32] LABS: Base Excess 10.9 mmol/L (-2.0-3.0)
[2025-05-23] MEDS: SODIUM CHLORIDE 0.9% 250 ML IV ONE ×2 (11:40→11:58)
[2025-05-23] MEDS ORDERED: SODIUM CHLORIDE 0.9% 250 ML IV ONE (11:45)
[2025-05-23] MEDS: NOREPINEPHRINE 8 MG/250ML KIT 250 ML IV ONE (11:55)
[2025-05-23] MEDS: NOREPINEPHRINE 8 MG/250ML KIT 250 ML IV SCH (11:57)
[2025-05-23 12:30] LABS: Base Excess 9.9 mmol/L (-2.0-3.0)
--- NOTE | 2025-05-23 14:45 | DVHPN2 ---
Progress Note Date Seen: May 23, 2025 Medical Necessity Reason Pt with a Central, PICC or Fol: Yes The following are medically ne: Mock Catheter Reason for mock catheter: Strict I&O Subjective Patient reports: No new complaints Review of Systems: HEENT:Normal, CVS:Normal, RESPIRATORY:Normal, GI:Normal, :Normal, MSK:Normal, NEURO:Normal Objective vital signs Vital Sign Date Time Temp Pulse Resp B/P (MAP) Pulse Ox O2 Delivery O2 Flow Rate FiO2 05/23/25 14:15 85 21 127/68 (87) 97 05/23/25 14:00 97.8 97.8 05/23/25 13:45 Nasal BiPAP Mask 65 05/23/25 09:39 6.0 Total Intake and Output 05/22/25 05/22/25 05/23/25 15:00 23:00 07:00 Intake Total 300 ml 0 ml 300 ml Balance 300 ml 0 ml 300 ml medications Current Medications Medications Dose Ordered Sig/Ezequiel Route Start Time Stop Time Status Last Admin Dose Admin Ondansetron HCl 4 mg Q4HP PRN IV 05/20/25 20:15 Enoxaparin Sodium 40 mg DAILY SC 05/21/25 10:00 05/23/25 09:33 40 MG Pantoprazole Sodium 40 mg DAILY IV 05/21/25 10:00 05/23/25 09:30 40 MG Levetiracetam 500 mg BID GT 05/20/25 22:00 05/23/25 09:30 500 MG Enteral Nutritional Formula 1,000 ml 30ML/HR GT 05/21/25 10:45 05/21/25 18:13 1,000 ML Timolol Maleate 1 drop BID EACHEYE 05/21/25 22:00 05/23/25 09:31 1 DROP Timolol Maleate 1 drop BID EACHEYE 05/21/25 22:00 UNV Vancomycin HCl 0 ml @ 0 mls/hr UD IV 05/22/25 12:15 Meropenem 50 ml @ 17 mls/hr Q8HR IV 05/22/25 22:00 05/23/25 05:15 17 MLS/HR Lorazepam 0.5 mg Q8HP PRN IV 05/22/25 12:15 05/22/25 21:08 0.5 MG Methylprednisolone Sodium Succinate 40 mg BID IV 05/22/25 22:00 05/23/25 09:30 40 MG Albuterol 2.5 mg Q4HWA NEB 05/22/25 14:00 05/23/25 13:45 2.5 MG Ipratropium [place] 0.5 mg Q4HWA NEB 05/22/25 14:00 05/23/25 13:45 0.5 MG Lactulose 30 ml BID PO 05/22/25 22:00 05/23/25 09:30 30 ML Vancomycin HCl 250 ml @ 250 mls/hr Q12H IV 05/23/25 01:00 05/23/25 13:52 250 MLS/HR Acetaminophen 650 mg Q6HP PRN GT 05/22/25 18:00 05/23/25 09:30 650 MG Norepinephrine Bitartrate 250 ml @ 3.75 mls/hr Q24H IV 05/23/25 12:15 05/23/25 11:57 3.75 MLS/HR Examination: GENERAL:Normal, HEENT:Normal, NECK:Normal, LUNGS:Normal, LUNGS:Abnormal (on bipap), CVS:Normal, ABDOMEN:Normal, MSK:Normal, SKIN:Normal, NEURO:Normal, NEURO:Abnormal (unresponsive), :Normal laboratory and microbiology Laboratory Tests 05/23/25 05:11 Test 05/23/25 05:11 Range/Units Serum Glucose 125 H 74-106 mg/dL Microbiology Date/Time Source Procedure Growth Status 05/21/25 15:20 Urine - Catheterized Urine Culture - Preliminary Resulted Problem List/Assessment/Plan Problem List/Assessment/Plan * uti ?sepsis: iv vanc, iv meropenem * Benign prostatic hypertrophy: mock catheter * Diabetes mellitus: ssi * History of seizure disorder: on keppra * Previous ventriculoperitoneal shunt. * History of neurocysticercosis. * Chronic obstructive pulmonary disease with exacerbation: iv steroids * acute on chronic resp failure: bipap/abg, chest xray * chronic diastolic heart failure. * Bedbound status with functional paraplegia. * peg tube: feedings * shock ?septic: on levophed advance care planning- full code- time spent 19 mins Plan discussed with: Patient, Spouse, Daughter My Orders My Orders Orders - GABRIELLE BOLAÑOS MD Procedure Category Date Status Time Vancomycin 1gm/250ml PHA 05/23/25 In Process Kit 01:00 Vancomycin,Trough LAB 05/24/25 Verified 00:00 Vancomycin Per ZARINA 05/24/25 In Process Pharmacy Protoc 01:00 Acetaminophen PHA 05/22/25 In Process Solution Oral 18:00 Abg W/ Co-Ox RT 05/23/25 Logged 11:00 BIPAP RT 05/23/25 Logged 11:39 Abg W/ Co-Ox RT 05/23/25 Logged 12:30 Transfer Orders XFER 05/23/25 Transmitted 11:41 Norepinephrine 8 PHA 05/23/25 In Process Mg/250ml Kit 12:15 Insert Mock Catheter ZARINA 05/23/25 In Process 13:30 * Picc Line Consult CONS 05/23/25 Transmitted 13:30 Mrsa Screen SOHAM 05/23/25 Logged 13:36 Respiratory Culture SOHAM 05/23/25 Verified W/ Gs 14:36 Blood Culture SOHAM 05/23/25 Verified 14:36 Complete Blood Count LAB 05/24/25 Verified 06:00 Comprehensive LAB 05/24/25 Verified Metabolic Panel 06:00 Magnesium LAB 05/24/25 Verified 05:00 Chest Portable XY 05/24/25 Verified 06:00 Abg W/ Co-Ox RT 05/24/25 Verified 06:00 Critical Care Time (mins): 68 (critical care time excluding procedures is 68 mins) Date of Service: May 23, 2025 Billing Provider: GABRIELLE BOLAÑOS MD Common Visit Codes: [id number] CARE 30-74 MIN GABRIELLE BOLAÑOS MD May 23, 2025 14:45
[2025-05-23 15:03] LABS: Base Excess 6.9 mmol/L (-2.0-3.0)
[2025-05-24] VITALS (105 sets, daily range): BP systolic 97–132; BP diastolic 52–80; PULSE 62–100; RESP 12–53; TEMP 97.3–99; O2SAT 86–100
--- NOTE | 2025-05-24 05:57 | DVH ---
CHEST RADIOGRAPH Indication: RESP FAILURE Technique: Single frontal view of the chest was obtained Comparison: XY CHEST PORTABLE on DOS: 05/23/25 FINDINGS: Lines and Tubes: None Lungs: Patchy bilateral airspace disease. Pulmonary vascular congestion is stable. Pleura: Small bilateral pleural effusions. No pneumothorax. Cardiomediastinal contours: Unremarkable Bones: No acute osseous abnormality. Upper abdomen: Lucency in the upper abdomen may represent air in a distended stomach. Pneumoperitoneu m not excluded. There is a percutaneous gastrostomy tube noted. IMPRESSION: 1. Stable pulmonary venous congestion, bibasilar airspace disease and pleural effusions. 2. New lucency in the upper abdomen may represent air within a distended stomach however pneumoperito neum is not excluded. Upright radiographs of the chest or CT of the abdomen pelvis may be obtained if clinically warranted.
[2025-05-24 06:14] LABS: Hematocrit 35.4 % (41.0-53.0); Hemoglobin 12.3 g/dL (13.5-17.5); Mean Corpuscular Hemoglobin 30.3 pg (28.0-32.0); Mean Corpuscular Volume 87.3 fL (80.0-100.0); Nucleated Red Blood Cells % 0.0 %
[2025-05-24 06:31] LABS: Alanine Aminotransferase 30 U/L (7-40); Albumin 4.3 g/dL (3.2-4.8); Alkaline Phosphatase 81 U/L (46-116); Anion Gap 8 (5-15); BUN/Creatinine Ratio 35.8 (10.0-20.0); Calcium 10.1 mg/dL (8.7-10.4); Chloride 101 mmol/L (98-107); Potassium 4.0 mmol/L (3.5-5.1); Sodium 145 mmol/L (136-145); Total Protein 7.1 g/dL (5.7-8.2)
[2025-05-24 06:50] LABS: Base Excess 11.5 mmol/L (-2.0-3.0)
[2025-05-24 06:52] LABS: Bilirubin, Total 0.2 mg/dL (0.2-1.0); Blood Urea Nitrogen 24 mg/dL (9-23); Carbon Dioxide 36 mmol/L (20-31); Glucose 144 mg/dL (74-106)
[2025-05-24 07:05] LABS: Magnesium 2.1 mg/dL (1.6-2.6)
--- NOTE | 2025-05-24 09:08 | DVHPN2 ---
Subjective Patient denies any symptoms Reviewed: Care Plan, H&P, Labs, Medications Changes from previous H/P or p: No Changes General: Per HPI Objective Vitals Vital Signs Date Time Temp Pulse Resp B/P (MAP) Pulse Ox O2 Delivery O2 Flow Rate FiO2 05/24/25 08:20 99 112/64 95 Facial BiPAP Mask 45 05/24/25 07:00 25 05/24/25 04:00 98.4 98.4 05/23/25 20:00 18 Intake/Output Intake and Output 05/24/25 07:00 Intake Total 828.50 ml Output Total 900 ml Balance -71.50 ml Intake Oral 40 ml IV Total 788.50 ml Output Urine Total 900 ml # Voids 2 General Appearance: Alert, Cooperative, mild distress HEENT: PERRLA Lungs: Other (Diminished breath sounds in bilateral bases. Currently on BiPAP) Cardiovascular: Normal S1, Normal S2 Abdomen: Normal bowel sounds, Soft, No tenderness, Other (G-tube) Musculoskeletal: Normal sensory function, Normal motor function Skin: Dry, Intact Psych/Mental Status: Mental status NL, Mood NL Medications Current Medications Medications Dose Ordered Sig/Ezequiel Route Start Time Stop Time Status Last Admin Dose Admin Ondansetron HCl 4 mg Q4HP PRN IV 05/20/25 20:15 Enoxaparin Sodium 40 mg DAILY SC 05/21/25 10:00 05/23/25 09:33 40 MG Pantoprazole Sodium 40 mg DAILY IV 05/21/25 10:00 05/23/25 09:30 40 MG Levetiracetam 500 mg BID GT 05/20/25 22:00 05/23/25 22:08 500 MG Enteral Nutritional Formula 1,000 ml 30ML/HR GT 05/21/25 10:45 05/21/25 18:13 1,000 ML Timolol Maleate 1 drop BID EACHEYE 05/21/25 22:00 05/23/25 22:08 1 DROP Timolol Maleate 1 drop BID EACHEYE 05/21/25 22:00 UNV Vancomycin HCl 0 ml @ 0 mls/hr UD IV 05/22/25 12:15 Meropenem 50 ml @ 17 mls/hr Q8HR IV 05/22/25 22:00 05/24/25 05:39 17 MLS/HR Methylprednisolone Sodium Succinate 40 mg BID IV 05/22/25 22:00 05/23/25 22:09 40 MG Albuterol 2.5 mg Q4HWA [employer] [facility] 05/22/25 14:00 05/24/25 06:20 2.5 MG Ipratropium [place] 0.5 mg Q4HWA [facility] 05/22/25 14:00 05/24/25 06:19 0.5 MG Vancomycin HCl 250 ml @ 250 mls/hr Q12H IV 05/23/25 01:00 05/24/25 01:53 250 MLS/HR Acetaminophen 650 mg Q6HP PRN GT 05/22/25 18:00 05/23/25 09:30 650 MG Norepinephrine Bitartrate 250 ml @ 3.75 mls/hr Q24H IV 05/23/25 12:15 05/23/25 11:57 3.75 MLS/HR Lactulose 30 ml BID GT 05/24/25 10:00 UNV Laboratory Results Laboratory Tests 05/24/25 04:52 Chemistry Test 05/24/25 04:52 Albumin 4.3 g/dL (3.2-4.8) Calcium Level 10.1 mg/dL (8.7-10.4) Magnesium Level 2.1 mg/dL (1.6-2.6) Total Protein 7.1 g/dL (5.7-8.2) LFT Test 05/24/25 04:52 Alanine Aminotransferase (ALT) 30 U/L (7-40) Alkaline Phosphatase 81 U/L (46-116) Aspartate Amino Transferase (AST) 26 U/L (13-40) Total Bilirubin 0.2 mg/dL (0.2-1.0) Urinalysis Test 05/20/25 16:30 Urine Color Colorless (Yellow) Urine Clarity Clear (Clear) Urine pH 7.0 (5.0-9.0) Urine Specific [place] 1.006 (1.001-1.035) Urine Protein Negative (Negative) Urine Ketones Negative (Negative) Urine Blood Negative /uL (Negative) Urine Nitrite Negative (Negative) Urine Bilirubin Negative (Negative) Urine Urobilinogen Normal mg/dL (Negative) Urine Leukocyte Esterase 3+ /uL (Negative) Urine RBC <1 /hpf (0 - 3) Urine Microscopic WBC 12 /HPF (0-3) H Urine Squamous Epithelial Cells Few /hpf (<5) Urine Calcium Oxalate Crystals Few (None Seen) Urine Bacteria Few /hpf (None Seen) H Urine Glucose Normal mg/dL (Normal) Blood Gas Results Test 05/23/25 11:28 05/23/25 12:20 05/23/25 14:59 05/24/25 06:36 Arterial Blood pH 7.197 (7.350-7.450) 7.227 (7.350-7.450) 7.281 (7.350-7.450) 7.447 (7.350-7.450) FiO2 % 65.0 65.0 65.0 35.0 Microbiology Microbiology Date/Time Source Procedure Growth Status 05/21/25 15:20 Urine - Catheterized Urine Culture - Preliminary Resulted Labs and/or images reviewed: Labs reviewed by me, Image(s) reviewed by me Assessment/Plan Assessment/Plan Impression: -acute hypoxic and hypercarbic respiratory failure -metabolic encephalopathy due to UTI, hypercarbia -septic shock -diabetes mellitus -history of seizure disorder -history of CH[employer] GREASER shunt -history of neurocysticercosis -bed-bound status with paraplegia -chronic diastolic heart failure Plan: -repeat urine culture pending. Continue antibiotic therapy with vancomycin and Merrem panel -chest x-ray today reveals gastric distention. Patient more alert. CO2 improving. Attempt to place patient on nasal cannula with BiPAP p.r.n. and at nighttime -G-tube to low intermittent suction for 1 hour. KUB. Then restart tube feedings -bronchodilators -head of bed greater than 30 for aspiration precautions -weaned off vasopressor therapy -regular insulin sliding scale -repeat labs and chest x-ray in a.m. Critical care time spent with patient discussing and formulating plan of care: 40 minutes. This does not include time spent performing procedures. This medical document was created using an electronic medical record system with [employer] dictation system. Although this document has been carefully reviewed, there may still be some phonetic and typographical errors. These areas are purely typographical due to imperfections of the software programs, and do not reflect any compromise in the patient's medical care. Plan discussed with: Patient, Other (RN) My Orders Orders - EKTA MURILLO NP Procedure Category Date Status Time Lactulose Oral PHA 05/24/25 Logged 10:00 Ng To Lis ZARINA 05/24/25 In Process 08:53 Basic Metabolic Panel LAB 8/9/25 Verified 05:00 Basic Metabolic Panel LAB 05/26/25 Verified 05:00 Basic Metabolic Panel LAB 05/27/25 Verified 05:00 Complete Blood Count LAB 05/25/25 Verified 05:00 Complete Blood Count LAB 05/26/25 Verified 05:00 Complete Blood Count LAB 05/27/25 Verified 05:00 Chest Portable XY 05/25/25 Logged 05:00 Chest Portable XY 05/26/25 Logged 05:00 Chest Portable XY 05/27/25 Logged 05:00 Oxygen By Nasal RT 05/24/25 Transmitted Cannula 08:53 Respiratory Misc. RT 05/24/25 Transmitted Order 08:53 Kub Abdomen Single XY 05/24/25 Verified View 10:00 Date of Service: May 24, 2025 Billing Provider: EKTA MURILLO NP Common Visit Codes: [id number] CARE 30-74 MIN EKTA MURILLO NP May 24, 2025 09:08
[2025-05-24] MEDS: Jevity 1.2 Cal/Fiber 1 Liter GT SCH (10:00)
--- NOTE | 2025-05-24 10:07 | DVH ---
Exam: XY KUB ABDOMEN SINGLE VIEW Indication: Reassess abdomen after GT decompression Comparison: None Technique: 1 radiographic views of the abdomen. Findings: Large volume colonic stool. There is no definite evidence for pneumoperitoneum. No abnormal calcifications noted. Impression: Large volume colonic stool.
[2025-05-24] MEDS: LACTULOSE 20Gm/30ML SOLN GT SCH (10:47)
[2025-05-24] MEDS: BISACODYL 10 MG RECT SUPP PR ONE (15:37)
[2025-05-24] MEDS: ACETYLCYSTEINE 10 %(100MG/ML) SOL 4ML NEB SCH (18:59)
[2025-05-25] VITALS (88 sets, daily range): BP systolic 86–146; BP diastolic 45–76; PULSE 55–82; RESP 11–29; TEMP 96.9–97.9; O2SAT 87–100
[2025-05-25] MEDS: VANCOMYCIN 750MG KIT 100 ML IV SCH (01:26)
[2025-05-25 05:22] LABS: Hematocrit 35.3 % (41.0-53.0); Hemoglobin 12.0 g/dL (13.5-17.5); Mean Corpuscular Hemoglobin 29.8 pg (28.0-32.0); Mean Corpuscular Volume 87.5 fL (80.0-100.0); Nucleated Red Blood Cells % 0.0 %
[2025-05-25 05:32] LABS: Chloride 102 mmol/L (98-107); Potassium 3.8 mmol/L (3.5-5.1)
[2025-05-25 05:33] LABS: Anion Gap 7 (5-15); Calcium 10.1 mg/dL (8.7-10.4)
[2025-05-25 05:38] LABS: BUN/Creatinine Ratio 35.0 (10.0-20.0); Blood Urea Nitrogen 21 mg/dL (9-23)
[2025-05-25 05:51] LABS: Carbon Dioxide 37 mmol/L (20-31); Glucose 148 mg/dL (74-106); Sodium 146 mmol/L (136-145)
--- NOTE | 2025-05-25 06:18 | DVH ---
EXAM: XY CHEST PORTABLE HISTORY: aspiration pna COMPARISON: XY CHEST PORTABLE on DOS: 05/24/25, XY CHEST PORTABLE on DOS: 05/23/25, XY CHEST XRAY 1 VIEW on DOS: 05/22/25, XY CHEST PORTABLE on DOS: 05/20/25, XY CHEST PORTABLE on DOS: 02/11/25 TECHNIQUE: Portable AP view of the chest was performed. FINDINGS: There are bilateral lung base opacities, [id number], similar to that seen previously. No pneumothorax or pulmonary edema. The heart is not enlarged. There surgical clips in the right upper quadrant. PEG tube is noted. IMPRESSION: Stable bilateral lung base opacities, [id number].
--- NOTE | 2025-05-25 08:48 | DVHPN2 ---
Subjective Patient denies any symptoms Reviewed: Care Plan, H&P, Labs, Medications Changes from previous H/P or p: No Changes General: Per HPI Objective Vitals Vital Signs Date Time Temp Pulse Resp B/P (MAP) Pulse Ox O2 Delivery O2 Flow Rate FiO2 05/25/25 07:51 63 17 Nasal Cannula* 4 36 05/25/25 07:51 100 05/25/25 07:00 105/58 (74) 05/25/25 04:00 97.1 97.1 Intake/Output Intake and Output 05/25/25 07:00 Intake Total 404 ml Output Total 950 ml Balance -546 ml Intake Oral 109 ml IV Total 235 ml Tube Feeding 60 ml Output Urine Total 950 ml # Bowel Movements 1 General Appearance: Alert, Cooperative, mild distress HEENT: PERRLA Lungs: Other (Diminished breath sounds in bilateral bases. Currently on BiPAP) Cardiovascular: Normal S1, Normal S2 Abdomen: Normal bowel sounds, Soft, No tenderness, Other (G-tube) Musculoskeletal: Normal sensory function, Normal motor function Skin: Dry, Intact Psych/Mental Status: Mental status NL, Mood NL Medications Current Medications Medications Dose Ordered Sig/Ezequiel Route Start Time Stop Time Status Last Admin Dose Admin Ondansetron HCl 4 mg Q4HP PRN IV 05/20/25 20:15 Enoxaparin Sodium 40 mg DAILY SC 05/21/25 10:00 05/24/25 10:48 40 MG Pantoprazole Sodium 40 mg DAILY IV 05/21/25 10:00 05/24/25 10:47 40 MG Levetiracetam 500 mg BID GT 05/20/25 22:00 05/24/25 21:32 500 MG Timolol Maleate 1 drop BID EACHEYE 05/21/25 22:00 05/24/25 21:32 1 DROP Timolol Maleate 1 drop BID EACHEYE 05/21/25 22:00 UNV Vancomycin HCl 0 ml @ 0 mls/hr UD IV 05/22/25 12:15 Meropenem 50 ml @ 17 mls/hr Q8HR IV 05/22/25 22:00 05/25/25 04:44 17 MLS/HR Methylprednisolone Sodium Succinate 40 mg BID IV 05/22/25 22:00 05/24/25 21:32 40 MG Albuterol 2.5 mg Q4HWA NEB 05/22/25 14:00 05/25/25 06:19 2.5 MG Ipratropium [place] 0.5 mg Q4HWA NEB 05/22/25 14:00 05/25/25 06:19 0.5 MG Acetaminophen 650 mg Q6HP PRN GT 05/22/25 18:00 05/23/25 09:30 650 MG Norepinephrine Bitartrate 250 ml @ 3.75 mls/hr Q24H IV 05/23/25 12:15 05/23/25 11:57 3.75 MLS/HR Lactulose 30 ml BID GT 05/24/25 10:00 05/24/25 21:32 30 ML Bisacodyl 10 mg DAILYP PRN [place] 05/24/25 13:15 Enteral Nutritional Formula 1,000 ml 50ML/HR GT 05/24/25 14:45 Acetylcysteine 100 mg Q8HR NEB 05/24/25 22:00 05/25/25 06:19 100 MG Vancomycin HCl 100 ml @ 100 mls/hr Q12H IV 05/25/25 01:00 05/25/25 01:26 100 MLS/HR Laboratory Results Laboratory Tests 05/25/25 04:34 Chemistry Test 05/25/25 04:34 Calcium Level 10.1 mg/dL (8.7-10.4) Urinalysis Test 05/20/25 16:30 Urine Color Colorless (Yellow) Urine Clarity Clear (Clear) Urine pH 7.0 (5.0-9.0) Urine Specific [place] 1.006 (1.001-1.035) Urine Protein Negative (Negative) Urine Ketones Negative (Negative) Urine Blood Negative /uL (Negative) Urine Nitrite Negative (Negative) Urine Bilirubin Negative (Negative) Urine Urobilinogen Normal mg/dL (Negative) Urine Leukocyte Esterase 3+ /uL (Negative) Urine RBC <1 /hpf (0 - 3) Urine Microscopic WBC 12 /HPF (0-3) H Urine Squamous Epithelial Cells Few /hpf (<5) Urine Calcium Oxalate Crystals Few (None Seen) Urine Bacteria Few /hpf (None Seen) H Urine Glucose Normal mg/dL (Normal) Microbiology Microbiology Date/Time Source Procedure Growth Status 05/23/25 16:56 Blood Blood Culture - Preliminary NO GROWTH AFTER 24 HOURS OF INCUBATION. Resulted 05/23/25 13:34 Nose MRSA Screen - Final Complete 05/21/25 15:20 Urine - Catheterized Urine Culture - Preliminary Resulted Labs and/or images reviewed: Labs reviewed by me, Image(s) reviewed by me Assessment/Plan Assessment/Plan Impression: -acute hypoxic and hypercarbic respiratory failure -metabolic encephalopathy due to UTI, hypercarbia -septic shock -diabetes mellitus -history of seizure disorder -history of [employer] shunt -history of neurocysticercosis -bed-bound status with paraplegia -chronic diastolic heart failure Plan: Events: No events overnight. Patient had BM. Tolerating CPAP overnight. Nasal cannula drop to 2 L by myself. -repeat urine culture pending. Continue antibiotic therapy with vancomycin and Meropenem -titrate to keep saturation greater than 92% -bronchodilators -head of bed greater than 30 for aspiration precautions -weaned off vasopressor therapy -regular insulin sliding scale -repeat labs and chest x-ray in a.m. -downgrade to step-down ICU Critical care time spent with patient discussing and formulating plan of care: 40 minutes. This does not include time spent performing procedures. This medical document was created using an electronic medical record system with [employer] dictation system. Although this document has been carefully reviewed, there may still be some phonetic and typographical errors. These areas are purely typographical due to imperfections of the software programs, and do not reflect any compromise in the patient's medical care. Plan discussed with: Patient, Other (RN) My Orders Orders - EKTA MURILLO [employer] Procedure Category Date Status Time Lactulose Oral PHA 05/24/25 In Process 10:00 Ng To Lis ZARINA 05/24/25 In Process 08:53 Basic Metabolic Panel LAB 05/26/25 Verified 05:00 Basic Metabolic Panel LAB 05/27/25 Verified 05:00 Complete Blood Count LAB 05/26/25 Verified 05:00 Complete Blood Count LAB 05/27/25 Verified 05:00 Chest Portable XY 05/25/25 Resulted 05:00 Chest Portable XY 05/26/25 Logged 05:00 Chest Portable XY 05/27/25 Logged 05:00 Oxygen By Nasal RT 05/24/25 Transmitted Cannula 08:53 Respiratory Misc. RT 05/24/25 Transmitted Order 08:53 Kub Abdomen Single XY 05/24/25 Resulted View 10:00 Bisacodyl Suppository PHA 05/24/25 In Process (Dulcolax Supposit 13:15 Nutritional PHA 05/24/25 In Process Supplements (Jevity 14:45 Acetylcysteine PHA 05/24/25 In Process Inhalation 10% 22:00 Communication Order ORDERS 05/24/25 Transmitted 14:45 Nasal Tracheal Suction RT 05/24/25 Logged 15:09 Transfer Orders XFER 05/25/25 Transmitted 08:25 Date of Service: May 25, 2025 Billing Provider: EKTA MURILLO NP Common Visit Codes: [id number] CARE 30-74 MIN EKTA MURILLO NP May 25, 2025 08:48
[2025-05-26] VITALS (40 sets, daily range): BP systolic 90–139; BP diastolic 50–84; PULSE 62–88; RESP 12–47; TEMP 97.5–100.2; O2SAT 90–100
--- NOTE | 2025-05-26 04:00 | DVH ---
CHEST RADIOGRAPH Indication: aspiration pna Technique: Single frontal view of the chest was obtained COMPARISON: XY CHEST PORTABLE on DOS: 05/25/25, XY CHEST PORTABLE on DOS: 05/24/25, XY CHEST PORTABLE on DOS: 05/23/25, XY CHEST XRAY 1 VIEW on DOS: 05/22/25, XY CHEST PORTABLE on DOS: 05/20/25 FINDINGS: Lines and Tubes: None Lungs: Grossly stable appearing mild patchy right basilar infiltrate and/or atelectasis. Pleura: No effusion. No pneumothorax. Cardiomediastinal contours: Unremarkable Bones: Unremarkable IMPRESSION: 1. Stable appearing patchy right basilar infiltrate and/or atelectasis.
[2025-05-26 04:40] LABS: Hematocrit 36.6 % (41.0-53.0); Hemoglobin 12.4 g/dL (13.5-17.5); Mean Corpuscular Hemoglobin 29.6 pg (28.0-32.0); Mean Corpuscular Volume 87.2 fL (80.0-100.0); Nucleated Red Blood Cells % 0.1 %
[2025-05-26 05:21] LABS: Anion Gap 12 (5-15); Calcium 10.2 mg/dL (8.7-10.4); Carbon Dioxide 30 mmol/L (20-31); Chloride 107 mmol/L (98-107); Potassium 3.2 mmol/L (3.5-5.1); Sodium 149 mmol/L (136-145)
[2025-05-26 05:26] LABS: BUN/Creatinine Ratio 38.3 (10.0-20.0)
[2025-05-26 05:32] LABS: Blood Urea Nitrogen 23 mg/dL (9-23); Glucose 155 mg/dL (74-106)
[2025-05-26] MEDS: IPRATROPIUM BROM 0.5 MG/2.5ML INH SOL ONE ×4 (06:58→18:53)
[2025-05-26] MEDS: ACETYLCYSTEINE 10 %(100MG/ML) SOL 4ML ONE ×2 (06:58→14:41)
[2025-05-26] MEDS: ALBUTEROL SULF 2.5 MG/0.5ML(0.5%) NEB SOLN ONE ×4 (06:59→18:53)
[2025-05-26] MEDS: POTASSIUM EFFERVESENT TAB 25 MEQ GT ONE (10:45)
--- NOTE | 2025-05-26 10:54 | DVHPN2 ---
Subjective Patient denies any symptoms Reviewed: Care Plan, H&P, Labs, Medications Changes from previous H/P or p: No Changes General: Per HPI Objective Vitals Vital Signs Date Time Temp Pulse Resp B/P (MAP) Pulse Ox O2 Delivery O2 Flow Rate FiO2 05/26/25 09:55 97 Nasal Cannula 2.0 05/26/25 09:53 28 05/26/25 09:53 18 05/26/25 09:00 77 135/78 (97) 05/26/25 08:00 97.9 97.9 Intake/Output Intake and Output 05/26/25 07:00 Intake Total 721 ml Output Total 1025 ml Balance -304 ml Intake Oral 60 ml IV Total 336 ml Tube Feeding 325 ml Output Urine Total 1025 ml # Bowel Movements 3 General Appearance: Alert, Oriented X3, Cooperative, mild distress HEENT: PERRLA Lungs: Other (Diminished breath sounds in bilateral bases. Currently on BiPAP) Cardiovascular: Normal S1, Normal S2 Abdomen: Normal bowel sounds, Soft, No tenderness, Other (G-tube) Musculoskeletal: Normal sensory function, Normal motor function Skin: Dry, Intact Psych/Mental Status: Mental status NL, Mood NL Medications Current Medications Medications Dose Ordered Sig/Ezequiel Route Start Time Stop Time Status Last Admin Dose Admin Ondansetron HCl 4 mg Q4HP PRN IV 05/20/25 20:15 Enoxaparin Sodium 40 mg DAILY SC 05/21/25 10:00 05/26/25 07:14 40 MG Pantoprazole Sodium 40 mg DAILY IV 05/21/25 10:00 05/26/25 07:13 40 MG Levetiracetam 500 mg BID GT 05/20/25 22:00 05/26/25 09:13 500 MG Timolol Maleate 1 drop BID EACHEYE 05/21/25 22:00 05/26/25 09:05 1 DROP Timolol Maleate 1 drop BID EACHEYE 05/21/25 22:00 UNV Vancomycin HCl 0 ml @ 0 mls/hr UD IV 05/22/25 12:15 Meropenem 50 ml @ 17 mls/hr Q8HR IV 05/22/25 22:00 05/26/25 06:00 17 MLS/HR Albuterol 2.5 mg Q4HWA NEB 05/22/25 14:00 05/26/25 06:55 2.5 MG Ipratropium [place] 0.5 mg Q4HWA NEB 05/22/25 14:00 05/26/25 06:55 0.5 MG Acetaminophen 650 mg Q6HP PRN GT 05/22/25 18:00 05/26/25 04:30 650 MG Lactulose 30 ml BID GT 05/24/25 10:00 05/26/25 07:14 30 ML Bisacodyl 10 mg DAILYP PRN [place] 05/24/25 13:15 Enteral Nutritional Formula 1,000 ml 50ML/HR GT 05/24/25 14:45 05/25/25 08:00 1,000 ML Acetylcysteine 100 mg Q8HR NEB 05/24/25 22:00 05/26/25 06:55 100 MG Vancomycin HCl 100 ml @ 100 mls/hr Q12H IV 05/25/25 01:00 05/26/25 02:36 100 MLS/HR Methylprednisolone Sodium Succinate 40 mg DAILY IV 05/27/25 10:00 UNV Purified Water 200 ml Q6HR GT 05/26/25 12:00 UNV Laboratory Results Laboratory Tests 05/26/25 04:24 Chemistry Test 05/26/25 04:24 Calcium Level 10.2 mg/dL (8.7-10.4) Urinalysis Test 05/20/25 16:30 Urine Color Colorless (Yellow) Urine Clarity Clear (Clear) Urine pH 7.0 (5.0-9.0) Urine Specific [place] 1.006 (1.001-1.035) Urine Protein Negative (Negative) Urine Ketones Negative (Negative) Urine Blood Negative /uL (Negative) Urine Nitrite Negative (Negative) Urine Bilirubin Negative (Negative) Urine Urobilinogen Normal mg/dL (Negative) Urine Leukocyte Esterase 3+ /uL (Negative) Urine RBC <1 /hpf (0 - 3) Urine Microscopic WBC 12 /HPF (0-3) H Urine Squamous Epithelial Cells Few /hpf (<5) Urine Calcium Oxalate Crystals Few (None Seen) Urine Bacteria Few /hpf (None Seen) H Urine Glucose Normal mg/dL (Normal) Microbiology Microbiology Date/Time Source Procedure Growth Status 05/23/25 16:56 Blood Blood Culture - Preliminary NO GROWTH AFTER 48 HOURS OF INCUBATION. Resulted 05/23/25 13:34 Nose MRSA Screen - Final Complete 05/21/25 15:20 Urine - Catheterized Urine Culture - Final Enterococcus faecalis Complete Labs and/or images reviewed: Labs reviewed by me, Image(s) reviewed by me Assessment/Plan Assessment/Plan Impression: -acute hypoxic and hypercarbic respiratory failure -metabolic encephalopathy due to UTI, hypercarbia -septic shock -diabetes mellitus -history of seizure disorder -history of [employer]IP RIVET[employer] shunt -history of neurocysticercosis -bed-bound status with paraplegia -chronic diastolic heart failure Plan: Events: No events overnight. Hypokalemic. Potassium replete. Patient now with hypernatremia. Start free water. -decrease Solu-Medrol -repeat urine culture pending. Continue antibiotic therapy with vancomycin and Meropenem -titrate to keep saturation greater than 92% -bronchodilators -head of bed greater than 30 for aspiration precautions -regular insulin sliding scale -repeat labs and chest x-ray in a.m. -KUB Critical care time spent with patient discussing and formulating plan of care: 40 minutes. This does not include time spent performing procedures. This medical document was created using an electronic medical record system with [employer] dictation system. Although this document has been carefully reviewed, there may still be some phonetic and typographical errors. These areas are purely typographical due to imperfections of the software programs, and do not reflect any compromise in the patient's medical care. Plan discussed with: Patient, Other (RN) My Orders Orders - EKTA MURILLO NP Procedure Category Date Status Time Pt Request For Service PT 05/25/25 Logged 14:45 Methylprednisolone PHA 05/27/25 Logged Sod Succ (Solu Medrol 10:00 Free Water PHA 05/26/25 Logged 12:00 Potassium Effervesent PHA 05/26/25 Logged Tab (Klor-Con/Ef) 10:45 Date of Service: May 26, 2025 Billing Provider: EKTA MURILLO NP Common Visit Codes: [id number] INP/OBS CARE(HIGH) EKTA MURILLO NP May 26, 2025 10:54
[2025-05-26] MEDS: GASTROGRAFIN 30 ML SOL ONE (11:34)
[2025-05-26] MEDS: FREE WATER GT SCH (12:21)
--- NOTE | 2025-05-26 14:32 | DVH ---
Date: 05/26/2025 11:14 AM Examination: XY KUB ABDOMEN SINGLE VIEW History: obstipation. G tube obstruction Comparison: XY KUB ABDOMEN SINGLE VIEW on DOS: 05/24/25, US BLADDER on DOS: 05/20/25, CT ABD PELVIS WO CO NTRAST on DOS: 02/05/22 TECHNIQUE: Frontal views of the abdomen was obtained. FINDINGS: Bowel gas pattern is unremarkable. The lung bases are unremarkable. No acute osseous abnormality identified. IMPRESSION: Fecal impaction and constipqtion
--- NOTE | 2025-05-26 17:13 | DVHPN2 ---
Progress Note - Dictate Date Seen: May 25, 2025 Medical Necessity Reason Pt with a Central, PICC or Fol: Yes The following are medically ne: Mock Catheter Reason for mock catheter: Strict I&O vital signs Vital Sign Date Time Temp Pulse Resp B/P (MAP) Pulse Ox O2 Delivery O2 Flow Rate FiO2 05/26/25 17:00 78 20 109/59 (76) 100 05/26/25 16:02 Nasal Cannula* 2 28 05/26/25 16:00 97.7 97.7 Total Intake and Output 05/25/25 05/25/25 05/26/25 14:59 22:59 06:59 Intake Total 34 ml 356 ml 331 ml Output Total 475 ml 550 ml Balance 34 ml -119 ml -219 ml medications Current Medications Medications Dose Ordered Sig/Ezequiel Route Start Time Stop Time Status Last Admin Dose Admin Ondansetron HCl 4 mg Q4HP PRN IV 05/20/25 20:15 Enoxaparin Sodium 40 mg DAILY SC 05/21/25 10:00 05/26/25 07:14 40 MG Pantoprazole Sodium 40 mg DAILY IV 05/21/25 10:00 05/26/25 07:13 40 MG Levetiracetam 500 mg BID GT 05/20/25 22:00 05/26/25 09:13 500 MG Timolol Maleate 1 drop BID EACHEYE 05/21/25 22:00 05/26/25 09:05 1 DROP Timolol Maleate 1 drop BID EACHEYE 05/21/25 22:00 UNV Vancomycin HCl 0 ml @ 0 mls/hr UD IV 05/22/25 12:15 Meropenem 50 ml @ 17 mls/hr Q8HR IV 05/22/25 22:00 05/26/25 12:20 17 MLS/HR Albuterol 2.5 mg Q4HWA NEB 05/22/25 14:00 05/26/25 14:37 2.5 MG Ipratropium [place] 0.5 mg Q4HWA NEB 05/22/25 14:00 05/26/25 14:37 0.5 MG Acetaminophen 650 mg Q6HP PRN GT 05/22/25 18:00 05/26/25 04:30 650 MG Lactulose 30 ml BID GT 05/24/25 10:00 05/26/25 07:14 30 ML Bisacodyl 10 mg DAILYP PRN [place] 05/24/25 13:15 Enteral Nutritional Formula 1,000 ml 50ML/HR GT 05/24/25 14:45 05/25/25 08:00 1,000 ML Acetylcysteine 100 mg Q8HR NEB 05/24/25 22:00 05/26/25 14:37 100 MG Vancomycin HCl 100 ml @ 100 mls/hr Q12H IV 05/25/25 01:00 05/26/25 02:36 100 MLS/HR Methylprednisolone Sodium Succinate 40 mg DAILY IV 05/27/25 10:00 Purified Water 200 ml Q6HR GT 05/26/25 12:00 05/26/25 12:21 200 ML laboratory and microbiology Laboratory Tests 05/26/25 04:24 Test 05/26/25 04:24 Range/Units Serum Glucose 155 H 74-106 mg/dL Assessment/Plan Covering for Dr. Capone Impression Acute hypoxemic respiratory failure Pneumonia Atelectasis COPD Patient seen and examined Events Low oxygen requirements On 2 liters nasal cannula Hemodynamics improving Labs and imaging reviewed Chest x-ray shows right lower lobe infiltrates consistent with pneumonia Management Supplemental oxygen Titrate to maintain sats 90% or above Incentive spirometry Continue antibiotics F/u cultures Bronchodilators Steroids for COPD management Monitor renal function Monitor electrolytes Supplement as needed Okay to use home AfloVest DVT prophylaxis Critical care time 35 minutes Dietary Evaluation Review Comments: 1) Consider changing TF formulary from Jevity 1.2 to Glucerna 1.2 @ 50 mL/hr d/t DM dx. TF regimen will provide 1440 kcals, 72g Pro, and 1766 mL free H2O per 24 hrs. TF rate will meet 91% estimated energy needs and 100% estimated protein needs 2) Collect HbA1c 3) Follow-up with cardiology, pulmonology, and neurology 4) Continue to monitor I&O, labs, and skin integrity Expected Outcomes/Goals: 1) labs to improve 2) f/u in 2-3 days Plan discussed with: Patient JU PEREZ MD May 26, 2025 17:13
--- NOTE | 2025-05-26 17:14 | DVHPN2 ---
Progress Note - Dictate Date Seen: May 26, 2025 Medical Necessity Reason Pt with a Central, PICC or Fol: Yes The following are medically ne: Mock Catheter Reason for mock catheter: Strict I&O vital signs Vital Sign Date Time Temp Pulse Resp B/P (MAP) Pulse Ox O2 Delivery O2 Flow Rate FiO2 05/26/25 17:00 78 20 109/59 (76) 100 05/26/25 16:02 Nasal Cannula* 2 28 05/26/25 16:00 97.7 97.7 Total Intake and Output 05/25/25 05/25/25 05/26/25 14:59 22:59 06:59 Intake Total 34 ml 356 ml 331 ml Output Total 475 ml 550 ml Balance 34 ml -119 ml -219 ml medications Current Medications Medications Dose Ordered Sig/Ezequiel Route Start Time Stop Time Status Last Admin Dose Admin Ondansetron HCl 4 mg Q4HP PRN IV 05/20/25 20:15 Enoxaparin Sodium 40 mg DAILY SC 05/21/25 10:00 05/26/25 07:14 40 MG Pantoprazole Sodium 40 mg DAILY IV 05/21/25 10:00 05/26/25 07:13 40 MG Levetiracetam 500 mg BID GT 05/20/25 22:00 05/26/25 09:13 500 MG Timolol Maleate 1 drop BID EACHEYE 05/21/25 22:00 05/26/25 09:05 1 DROP Timolol Maleate 1 drop BID EACHEYE 05/21/25 22:00 UNV Vancomycin HCl 0 ml @ 0 mls/hr UD IV 05/22/25 12:15 Meropenem 50 ml @ 17 mls/hr Q8HR IV 05/22/25 22:00 05/26/25 12:20 17 MLS/HR Albuterol 2.5 mg Q4HWA NEB 05/22/25 14:00 05/26/25 14:37 2.5 MG Ipratropium [place] 0.5 mg Q4HWA NEB 05/22/25 14:00 05/26/25 14:37 0.5 MG Acetaminophen 650 mg Q6HP PRN GT 05/22/25 18:00 05/26/25 04:30 650 MG Lactulose 30 ml BID GT 05/24/25 10:00 05/26/25 07:14 30 ML Bisacodyl 10 mg DAILYP PRN NE 05/24/25 13:15 Enteral Nutritional Formula 1,000 ml 50ML/HR GT 05/24/25 14:45 05/25/25 08:00 1,000 ML Acetylcysteine 100 mg Q8HR NEB 05/24/25 22:00 05/26/25 14:37 100 MG Vancomycin HCl 100 ml @ 100 mls/hr Q12H IV 05/25/25 01:00 05/26/25 02:36 100 MLS/HR Methylprednisolone Sodium Succinate 40 mg DAILY IV 05/27/25 10:00 Purified Water 200 ml Q6HR GT 05/26/25 12:00 05/26/25 12:21 200 ML laboratory and microbiology Laboratory Tests 05/26/25 04:24 Test 05/26/25 04:24 Range/Units Serum Glucose 155 H 74-106 mg/dL Assessment/Plan Covering for Dr. Capone Impression Acute hypoxemic respiratory failure Pneumonia Atelectasis COPD Patient seen and examined Events Low oxygen requirements On 2 liters nasal cannula Hemodynamics improving No acute events Labs and imaging reviewed Management Supplemental oxygen Titrate to maintain sats 90% or above Incentive spirometry Continue antibiotics F/u cultures Bronchodilators Steroids for COPD management Monitor renal function Monitor electrolytes Supplement as needed Okay to use home AfloVest DVT prophylaxis Critical care time 35 minutes Dietary Evaluation Review Comments: 1) Consider changing TF formulary from Jevity 1.2 to Glucerna 1.2 @ 50 mL/hr d/t DM dx. TF regimen will provide 1440 kcals, 72g Pro, and 1766 mL free H2O per 24 hrs. TF rate will meet 91% estimated energy needs and 100% estimated protein needs 2) Collect HbA1c 3) Follow-up with cardiology, pulmonology, and neurology 4) Continue to monitor I&O, labs, and skin integrity Expected Outcomes/Goals: 1) labs to improve 2) f/u in 2-3 days Plan discussed with: Patient JU PEREZ MD May 26, 2025 17:14
[2025-05-26] MEDS: VANCOMYCIN 750MG KIT 100 ML IV ONE (17:55)
[2025-05-27] VITALS (34 sets, daily range): BP systolic 87–121; BP diastolic 52–72; PULSE 69–100; RESP 11–29; TEMP 97.3–98.9; O2SAT 82–100
[2025-05-27] MEDS: BISACODYL 10 MG RECT SUPP PR PRN (04:02)
[2025-05-27] MEDS: BISACODYL 10 MG RECT SUPP PR ONE (04:14)
--- NOTE | 2025-05-27 05:53 | DVH ---
CHEST RADIOGRAPH Indication: aspiration pna Technique: Single frontal view of the chest was obtained COMPARISON: XY CHEST PORTABLE on DOS: 05/26/25, XY CHEST PORTABLE on DOS: 05/25/25, XY CHEST PORTABLE on DOS: 05/24/25, XY CHEST PORTABLE on DOS: 05/23/25, XY CHEST XRAY 1 VIEW on DOS: 05/22/25 FINDINGS: Lines and Tubes: None Lungs: Clear Pleura: No effusion. No pneumothorax. Cardiomediastinal contours: Unremarkable Bones: Unremarkable IMPRESSION: No acute disease.
[2025-05-27] MEDS: ACETYLCYSTEINE 10 %(100MG/ML) SOL 4ML ONE (06:25)
[2025-05-27] MEDS: IPRATROPIUM BROM 0.5 MG/2.5ML INH SOL ONE ×2 (06:26→18:33)
[2025-05-27] MEDS: ALBUTEROL SULF 2.5 MG/0.5ML(0.5%) NEB SOLN ONE ×2 (06:26→18:34)
[2025-05-27 07:38] LABS: Hematocrit 36.7 % (41.0-53.0); Hemoglobin 12.4 g/dL (13.5-17.5); Mean Corpuscular Hemoglobin 29.7 pg (28.0-32.0); Mean Corpuscular Volume 88.2 fL (80.0-100.0); Nucleated Red Blood Cells % 0.1 %
[2025-05-27 07:54] LABS: Anion Gap 9 (5-15); Calcium 9.9 mg/dL (8.7-10.4); Carbon Dioxide 30 mmol/L (20-31); Chloride 106 mmol/L (98-107); Potassium 3.7 mmol/L (3.5-5.1); Sodium 145 mmol/L (136-145)
[2025-05-27 08:00] LABS: BUN/Creatinine Ratio 29.1 (10.0-20.0); Blood Urea Nitrogen 16 mg/dL (9-23); Glucose 111 mg/dL (74-106)
[2025-05-27] MEDS: methylPREDNISolone SOD SUCC 40 MG/ML VL IV SCH (10:39)
--- NOTE | 2025-05-27 11:44 | DVHPN2 ---
Progress Note Date Seen: May 27, 2025 Medical Necessity Reason Pt with a Central, PICC or Fol: Yes The following are medically ne: Mock Catheter Reason for mock catheter: Strict I&O Subjective Patient reports: No new complaints Review of Systems: HEENT:Normal, CVS:Normal, RESPIRATORY:Normal, GI:Normal, :Normal, MSK:Normal, NEURO:Normal Objective vital signs Vital Sign Date Time Temp Pulse Resp B/P (MAP) Pulse Ox O2 Delivery O2 Flow Rate FiO2 05/27/25 11:00 98 Nasal Cannula* 2 28 05/27/25 10:00 17 05/27/25 09:00 78 113/65 (81) 05/27/25 08:00 98.8 98.8 Total Intake and Output 05/26/25 05/26/25 05/27/25 14:59 22:59 06:59 Intake Total 34 ml 900 ml 695 ml Output Total 800 ml 550 ml Balance 34 ml 100 ml 145 ml medications Current Medications Medications Dose Ordered Sig/Ezequiel Route Start Time Stop Time Status Last Admin Dose Admin Ondansetron HCl 4 mg Q4HP PRN IV 05/20/25 20:15 Enoxaparin Sodium 40 mg DAILY SC 05/21/25 10:00 05/27/25 10:40 40 MG Pantoprazole Sodium 40 mg DAILY IV 05/21/25 10:00 05/27/25 10:39 40 MG Levetiracetam 500 mg BID GT 05/20/25 22:00 05/26/25 21:43 500 MG Timolol Maleate 1 drop BID EACHEYE 05/21/25 22:00 05/27/25 10:39 1 DROP Timolol Maleate 1 drop BID EACHEYE 05/21/25 22:00 UNV Vancomycin HCl 0 ml @ 0 mls/hr UD IV 05/22/25 12:15 Meropenem 50 ml @ 17 mls/hr Q8HR IV 05/22/25 22:00 05/27/25 05:31 17 MLS/HR Albuterol 2.5 mg Q4HWA NEB 05/22/25 14:00 05/26/25 22:03 2.5 MG Ipratropium [place] 0.5 mg Q4HWA NEB 05/22/25 14:00 05/26/25 22:03 0.5 MG Acetaminophen 650 mg Q6HP PRN GT 05/22/25 18:00 05/26/25 04:30 650 MG Lactulose 30 ml BID GT 05/24/25 10:00 05/27/25 10:39 30 ML Bisacodyl 10 mg DAILYP PRN [place] 05/24/25 13:15 05/27/25 04:02 10 MG Enteral Nutritional Formula 1,000 ml 50ML/HR GT 05/24/25 14:45 05/27/25 10:10 1,000 ML Acetylcysteine 100 mg Q8HR NEB 05/24/25 22:00 05/26/25 22:02 100 MG Vancomycin HCl 100 ml @ 100 mls/hr Q12H IV 05/25/25 01:00 05/27/25 01:32 100 MLS/HR Methylprednisolone Sodium Succinate 40 mg DAILY IV 05/27/25 10:00 05/27/25 10:39 40 MG Purified Water 200 ml Q6HR GT 05/26/25 12:00 05/27/25 05:31 200 ML Examination: GENERAL:Normal, HEENT:Normal, NECK:Normal, LUNGS:Normal, LUNGS:Abnormal (on oxygen), CVS:Normal, ABDOMEN:Normal, MSK:Normal, SKIN:Normal, NEURO:Normal, :Normal laboratory and microbiology Laboratory Tests 05/27/25 06:36 Test 05/27/25 06:36 Range/Units Serum Glucose 111 H 74-106 mg/dL Microbiology Date/Time Source Procedure Growth Status 05/23/25 16:56 Blood Blood Culture - Preliminary NO GROWTH AFTER 72 HOURS OF INCUBATION. Resulted 05/23/25 13:34 Nose MRSA Screen - Final Complete 05/21/25 15:20 Urine - Catheterized Urine Culture - Final Enterococcus faecalis Complete Problem List/Assessment/Plan Problem List/Assessment/Plan * uti ?sepsis with e fecalis: iv meropenem * Benign prostatic hypertrophy: omck catheter * Diabetes mellitus: ssi * History of seizure disorder: on keppra * Previous ventriculoperitoneal shunt. * History of neurocysticercosis. * Chronic obstructive pulmonary disease with exacerbation: steroids * acute on chronic resp failure: bipap/abg, chest xray * chronic diastolic heart failure. * Bedbound status with functional paraplegia. * peg tube: feedings * shock ?septic: on levophed * fecal impaction: increase lactulose advance care planning- full code- time spent 19 mins Plan discussed with: Patient, Spouse, Son My Orders My Orders Orders - GABRIELLE BOLAÑOS MD Procedure Category Date Status Time Vancomycin,Trough LAB 05/28/25 Verified 12:00 Creatinine LAB 05/28/25 Verified 04:00 Vancomycin Per ZARINA 05/28/25 In Process Pharmacy Protoc 13:00 Lactulose Oral PHA 05/27/25 Verified 12:00 Prednisone Tablet PHA 05/28/25 Verified 10:00 Ugi With Gastrografin XY 05/27/25 Verified 11:37 Transfer Orders XFER 05/27/25 Verified 11:37 Sitter At Bedside ORDERS 05/27/25 Verified 11:37 Dietary Evaluation Review Comments: 1) Consider changing TF formulary from Jevity 1.2 to Glucerna 1.2 @ 50 mL/hr d/t DM dx. TF regimen will provide 1440 kcals, 72g Pro, and 1766 mL free H2O per 24 hrs. TF rate will meet 91% estimated energy needs and 100% estimated protein needs 2) Collect HbA1c 3) Follow-up with cardiology, pulmonology, and neurology 4) Continue to monitor I&O, labs, and skin integrity Expected Outcomes/Goals: 1) labs to improve 2) f/u in 2-3 days Critical Care Time (mins): 37 (critical care time 37 mins) Date of Service: May 27, 2025 Billing Provider: GABRIELLE BOLAÑOS MD Common Visit Codes: [id number] CARE 30-74 MIN GABRIELLE BOLAÑOS MD May 27, 2025 11:44
[2025-05-27] MEDS: LACTULOSE 20Gm/30ML SOLN GT SCH (12:04)
--- NOTE | 2025-05-27 14:00 | MEDREC ---
[facility] ASP Intervention Section I [facility] ASP Intervention: Review courses of therapy (PT AFEBRILE, WBC WNL, E.FAECALIS <10,000 CFU/ML (POSSIBLE COLONIZATION), MAY CONSIDER DISCONTINUING ANTIBIOTICS IF CLINICALLY APPROPRIATE.) MARKELL [facility] RESIDENT May 27, 2025 14:00
[2025-05-27] MEDS: MEROPENEM 1GM IVPB 50 ML IV ONE (16:12)
[2025-05-27] MEDS: ACETYLCYSTEINE 20%(200MG/ML) SOL 4ML ONE (18:34)
[2025-05-28] VITALS (38 sets, daily range): BP systolic 83–128; BP diastolic 47–77; PULSE 63–93; RESP 11–41; TEMP 97.5–99.1; O2SAT 94–100
[2025-05-28] MEDS: ALBUMIN 5% 250 ML IV ONE ×2 (01:45→01:53)
[2025-05-28 06:29] LABS: Hematocrit 35.6 % (41.0-53.0); Hemoglobin 12.0 g/dL (13.5-17.5); Mean Corpuscular Hemoglobin 29.8 pg (28.0-32.0); Mean Corpuscular Volume 88.3 fL (80.0-100.0); Nucleated Red Blood Cells % 0.1 %
[2025-05-28 06:47] LABS: Albumin 4.1 g/dL (3.2-4.8); Alkaline Phosphatase 91 U/L (46-116); Anion Gap 9 (5-15); BUN/Creatinine Ratio 34.4 (10.0-20.0); Blood Urea Nitrogen 21 mg/dL (9-23); Calcium 9.7 mg/dL (8.7-10.4); Chloride 106 mmol/L (98-107); Glucose 99 mg/dL (74-106); Total Protein 6.6 g/dL (5.7-8.2)
[2025-05-28 06:48] LABS: Bilirubin, Total 0.4 mg/dL (0.2-1.0)
[2025-05-28 06:50] LABS: Alanine Aminotransferase 70 U/L (7-40); Carbon Dioxide 31 mmol/L (20-31); Potassium 3.4 mmol/L (3.5-5.1); Sodium 146 mmol/L (136-145)
[2025-05-28] MEDS: ACETYLCYSTEINE 10 %(100MG/ML) SOL 4ML ONE (06:51)
[2025-05-28] MEDS: IPRATROPIUM BROM 0.5 MG/2.5ML INH SOL ONE ×2 (06:51→09:02)
[2025-05-28] MEDS: ALBUTEROL SULF 2.5 MG/0.5ML(0.5%) NEB SOLN ONE ×2 (06:51→09:02)
[2025-05-28] MEDS: predniSONE 20 MG TAB PO SCH (10:27)
--- NOTE | 2025-05-28 11:45 | DVHPN2 ---
Progress Note Date Seen: May 28, 2025 Medical Necessity Reason Pt with a Central, PICC or Fol: Yes The following are medically ne: Mock Catheter Reason for mock catheter: Strict I&O Subjective Patient reports: No new complaints Review of Systems: HEENT:Normal, CVS:Normal, RESPIRATORY:Normal, GI:Normal, :Normal, MSK:Normal, NEURO:Normal Objective vital signs Vital Sign Date Time Temp Pulse Resp B/P (MAP) Pulse Ox O2 Delivery O2 Flow Rate FiO2 05/28/25 09:52 75 16 100 05/28/25 09:46 Nasal Cannula* 4 36 05/28/25 06:00 105/67 (80) 05/28/25 04:00 98.2 98.2 Total Intake and Output 05/27/25 05/27/25 05/28/25 15:00 23:00 07:00 Intake Total 17 ml 657 ml 653 ml Output Total 550 ml 450 ml Balance 17 ml 107 ml 203 ml medications Current Medications Medications Dose Ordered Sig/Ezequiel Route Start Time Stop Time Status Last Admin Dose Admin Ondansetron HCl 4 mg Q4HP PRN IV 05/20/25 20:15 Enoxaparin Sodium 40 mg DAILY SC 05/21/25 10:00 05/28/25 10:27 40 MG Pantoprazole Sodium 40 mg DAILY IV 05/21/25 10:00 05/28/25 10:26 40 MG Levetiracetam 500 mg BID GT 05/20/25 22:00 05/28/25 10:26 500 MG Timolol Maleate 1 drop BID EACHEYE 05/21/25 22:00 05/28/25 10:28 1 DROP Timolol Maleate 1 drop BID EACHEYE 05/21/25 22:00 UNV Meropenem 50 ml @ 17 mls/hr Q8HR IV 05/22/25 22:00 05/28/25 05:21 17 MLS/HR Albuterol 2.5 mg Q4HWA NEB 05/22/25 14:00 05/28/25 09:46 2.5 MG Ipratropium [place] 0.5 mg Q4HWA NEB 05/22/25 14:00 05/28/25 09:46 0.5 MG Acetaminophen 650 mg Q6HP PRN GT 05/22/25 18:00 05/27/25 21:27 650 MG Bisacodyl 10 mg DAILYP PRN [place] 05/24/25 13:15 05/27/25 19:53 10 MG Enteral Nutritional Formula 1,000 ml 50ML/HR GT 05/24/25 14:45 05/27/25 10:10 1,000 ML Acetylcysteine 100 mg Q8HR NEB 05/24/25 22:00 05/28/25 07:17 100 MG Purified Water 200 ml Q6HR GT 05/26/25 12:00 05/28/25 05:21 200 ML Lactulose 30 ml Q6HR GT 05/27/25 12:00 05/28/25 05:21 30 ML Prednisone 40 mg DAILY PO 05/28/25 10:00 05/28/25 10:27 40 MG Examination: GENERAL:Normal, HEENT:Normal, NECK:Normal, LUNGS:Normal, CVS:Normal, ABDOMEN:Normal, ABDOMEN:Abnormal (PEG+), MSK:Normal, SKIN:Normal, NEURO:Normal, :Normal laboratory and microbiology Laboratory Tests 05/28/25 05:22 Test 05/28/25 05:22 Range/Units Serum Glucose 99 74-106 mg/dL Microbiology Date/Time Source Procedure Growth Status 05/23/25 16:56 Blood Blood Culture - Preliminary NO GROWTH AFTER 72 HOURS OF INCUBATION. Resulted 05/23/25 13:34 Nose MRSA Screen - Final Complete 05/21/25 15:20 Urine - Catheterized Urine Culture - Final Enterococcus faecalis Complete Problem List/Assessment/Plan Problem List/Assessment/Plan * uti ?sepsis with e fecalis: iv ampicillin * Benign prostatic hypertrophy: mock catheter * Diabetes mellitus: ssi * History of seizure disorder: on keppra * Previous ventriculoperitoneal shunt. * History of neurocysticercosis. * Chronic obstructive pulmonary disease with exacerbation: steroids * acute on chronic resp failure: bipap/abg, chest xray * chronic diastolic heart failure. * Bedbound status with functional paraplegia. * peg tube: feedings * shock ?septic: on levophed * fecal impaction: increase lactulose, enema advance care planning- full code- time spent 19 mins Plan discussed with: Patient, Spouse Dietary Evaluation Review Comments: 1) Consider changing TF formulary from Jevity 1.2 to Glucerna 1.2 @ 50 mL/hr d/t DM dx. TF regimen will provide 1440 kcals, 72g Pro, and 1766 mL free H2O per 24 hrs. TF rate will meet 91% estimated energy needs and 100% estimated protein needs 2) Collect HbA1c 3) Follow-up with cardiology, pulmonology, and neurology 4) Continue to monitor I&O, labs, and skin integrity Expected Outcomes/Goals: 1) labs to improve 2) f/u in 2-3 days Date of Service: May 28, 2025 Billing Provider: GABRIELLE BOLAÑOS MD Common Visit Codes: [id number] INP/OBS CARE(HIGH) GABRIELLE BOLAÑOS MD May 28, 2025 11:45
[2025-05-28] MEDS: POTASSIUM EFFERVESENT TAB 25 MEQ GT ONE (13:18)
[2025-05-28] MEDS: POLYETHYLENE GLYCOL 17 GM PWDR PO ONE (13:18)
[2025-05-28] MEDS: AMPICILLIN INJ 1 GM in SODIUM CHL 0.9% 100 ML IV SCH (13:51)
[2025-05-28 16:21] LABS: Urine Protein, UAD TRACE (Negative)
[2025-05-29] VITALS (36 sets, daily range): BP systolic 101–127; BP diastolic 70–82; PULSE 60–89; RESP 12–25; TEMP 96.9–98.8; O2SAT 93–100
[2025-05-29 05:49] LABS: Hematocrit 36.4 % (41.0-53.0); Hemoglobin 12.3 g/dL (13.5-17.5); Mean Corpuscular Hemoglobin 29.6 pg (28.0-32.0); Mean Corpuscular Volume 87.7 fL (80.0-100.0); Nucleated Red Blood Cells % 0.1 %
[2025-05-29 06:05] LABS: Albumin 4.0 g/dL (3.2-4.8); Alkaline Phosphatase 88 U/L (46-116); Anion Gap 7 (5-15); BUN/Creatinine Ratio 30.9 (10.0-20.0); Bilirubin, Total 0.4 mg/dL (0.2-1.0); Blood Urea Nitrogen 17 mg/dL (9-23); Calcium 9.6 mg/dL (8.7-10.4); Chloride 104 mmol/L (98-107); Glucose 96 mg/dL (74-106); Potassium 3.7 mmol/L (3.5-5.1); Sodium 144 mmol/L (136-145); Total Protein 6.5 g/dL (5.7-8.2)
[2025-05-29 06:08] LABS: Alanine Aminotransferase 57 U/L (7-40); Carbon Dioxide 33 mmol/L (20-31)
[2025-05-29] MEDS: POLYETHYLENE GLYCOL 17 GM PWDR PO SCH (09:18)
--- NOTE | 2025-05-29 11:17 | DVHPN2 ---
Progress Note Date Seen: May 29, 2025 Medical Necessity Reason Pt with a Central, PICC or Fol: Yes The following are medically ne: Mock Catheter Reason for mock catheter: Strict I&O Subjective Patient reports: No new complaints Review of Systems: HEENT:Normal, CVS:Normal, RESPIRATORY:Normal, GI:Normal, :Normal, MSK:Normal, NEURO:Normal Objective vital signs Vital Sign Date Time Temp Pulse Resp B/P (MAP) Pulse Ox O2 Delivery O2 Flow Rate FiO2 05/29/25 10:00 96 Nasal Cannula 2.0 05/29/25 10:00 20 28 05/29/25 10:00 74 123/82 (96) 05/29/25 08:00 97.7 97.7 Total Intake and Output 05/28/25 05/28/25 05/29/25 15:00 23:00 07:00 Intake Total 150 ml 1086 ml 604 ml Output Total 600 ml 400 ml Balance 150 ml 486 ml 204 ml medications Current Medications Medications Dose Ordered Sig/Ezequiel Route Start Time Stop Time Status Last Admin Dose Admin Ondansetron HCl 4 mg Q4HP PRN IV 05/20/25 20:15 Enoxaparin Sodium 40 mg DAILY SC 05/21/25 10:00 05/29/25 09:18 40 MG Pantoprazole Sodium 40 mg DAILY IV 05/21/25 10:00 05/29/25 09:17 40 MG Levetiracetam 500 mg BID GT 05/20/25 22:00 05/29/25 09:57 500 MG Timolol Maleate 1 drop BID EACHEYE 05/21/25 22:00 05/29/25 09:18 1 DROP Timolol Maleate 1 drop BID EACHEYE 05/21/25 22:00 UNV Albuterol 2.5 mg Q4HWA NEB 05/22/25 14:00 05/29/25 09:25 2.5 MG Ipratropium [place] 0.5 mg Q4HWA NEB 05/22/25 14:00 05/29/25 09:25 0.5 MG Acetaminophen 650 mg Q6HP PRN GT 05/22/25 18:00 05/27/25 21:27 650 MG Bisacodyl 10 mg DAILYP PRN [place] 05/24/25 13:15 05/27/25 19:53 10 MG Enteral Nutritional Formula 1,000 ml 50ML/HR GT 05/24/25 14:45 05/29/25 09:27 1,000 ML Acetylcysteine 100 mg Q8HR NEB 05/24/25 22:00 05/29/25 06:58 100 MG Purified Water 200 ml Q6HR GT 05/26/25 12:00 05/29/25 06:21 200 ML Lactulose 30 ml Q6HR GT 05/27/25 12:00 05/29/25 06:21 30 ML Prednisone 40 mg DAILY PO 05/28/25 10:00 05/29/25 09:18 40 MG Polyethylene Glycol 17 gm DAILY PO 05/29/25 10:00 05/29/25 09:18 17 GM Ampicillin Sodium 1 gm/Sodium Chloride 100 ml @ 200 mls/hr Q6HR IV 05/28/25 12:00 05/29/25 06:21 200 MLS/HR Examination: GENERAL:Normal, HEENT:Normal, NECK:Normal, LUNGS:Normal, CVS:Normal, ABDOMEN:Normal, ABDOMEN:Abnormal (PEG+), MSK:Normal, SKIN:Normal, NEURO:Normal, :Normal laboratory and microbiology Laboratory Tests 05/29/25 05:15 Test 05/29/25 05:15 Range/Units Serum Glucose 96 74-106 mg/dL Microbiology Date/Time Source Procedure Growth Status 05/23/25 16:56 Blood Blood Culture - Final NO GROWTH AFTER 5 DAYS OF INCUBATION. Complete 05/23/25 13:34 Nose MRSA Screen - Final Complete 05/21/25 15:20 Urine - Catheterized Urine Culture - Final Enterococcus faecalis Complete Problem List/Assessment/Plan Problem List/Assessment/Plan * uti ?sepsis with e fecalis: iv ampicillin * Benign prostatic hypertrophy: mock catheter * Diabetes mellitus: ssi * History of seizure disorder: on keppra * Previous ventriculoperitoneal shunt. * History of neurocysticercosis. * Chronic obstructive pulmonary disease with exacerbation: steroids * acute on chronic resp failure: bipap/abg, chest xray * chronic diastolic heart failure. * Bedbound status with functional paraplegia. * peg tube: feedings * shock ?septic: on levophed * fecal impaction: increase lactulose, enema, manual disimpaction done- large amount of rectal stool removed advance care planning- full code- time spent 19 mins Plan discussed with: Patient, Spouse, Son My Orders My Orders Orders - GABRIELLE BOLAÑOS MD Procedure Category Date Status Time Tap Water Enema ORDERS 05/28/25 Transmitted 11:41 Polyethylene Glycol PHA 05/29/25 In Process 17g Powder (Miralax 10:00 Ampicillin Inj PHA 05/28/25 In Process 12:00 * Flash Welder CONS 05/28/25 Transmitted Consult Tap Water Enema ORDERS 05/29/25 Transmitted 11:14 Dietary Evaluation Review Comments: 1) Consider changing TF formulary from Jevity 1.2 to Glucerna 1.2 @ 50 mL/hr d/t DM dx. TF regimen will provide 1440 kcals, 72g Pro, and 1766 mL free H2O per 24 hrs. TF rate will meet 91% estimated energy needs and 100% estimated protein needs 2) Collect HbA1c 3) Follow-up with cardiology, pulmonology, and neurology 4) Continue to monitor I&O, labs, and skin integrity Expected Outcomes/Goals: 1) labs to improve 2) f/u in 2-3 days Date of Service: May 29, 2025 Billing Provider: GABRIELLE BOLAÑOS MD Common Visit Codes: [id number] INP/OBS CARE(HIGH) GABRIELLE BOLAÑOS MD May 29, 2025 11:17
[2025-05-29] MEDS: FLEET MINERAL OIL ENEMA 133 ML PR ONE (12:55)
[2025-05-29] MEDS: GOLYTELY 4L KIT GT ONE (17:33)
[2025-05-30] VITALS (14 sets, daily range): BP systolic 109–133; BP diastolic 67–89; PULSE 68–85; RESP 16–20; TEMP 97.4–98; O2SAT 94–99
[2025-05-30] MEDS: predniSONE 20 MG TAB PO SCH (08:24)
[2025-05-30] MEDS: CALCIUM CARB 500 MG CHEW TAB PO ONE (14:30)
--- NOTE | 2025-05-30 16:07 | DVHDS2 ---
Discharge Summary Date of Admission May 20, 2025 at 20:02 Date of Discharge: May 30, 2025 Labs/Diagnostic Data: Laboratory Results Test 05/29/25 05:15 05/28/25 15:46 05/26/25 11:50 05/24/25 06:36 White Blood Count 7.7 10^3/uL (4.4-10.8) Red Blood Count 4.15 10^6/uL (4.5-5.90) Hemoglobin 12.3 g/dL (13.5-17.5) Hematocrit 36.4 % (41.0-53.0) Mean Corpuscular Volume 87.7 fL (80.0-100.0) Mean Corpuscular Hemoglobin 29.6 pg (28.0-32.0) Mean Corpuscular Hemoglobin Concent 33.7 g/dL (32.0-36.0) Red Cell Distribution Width 14.2 % (11.8-14.3) Platelet Count 251 10^3/uL (140-450) Mean Platelet Volume 7.4 fL (6.9-10.8) Neutrophils (%) (Auto) 63.5 % (37.0-80.0) Lymphocytes (%) (Auto) 29.4 % (10.0-50.0) Monocytes (%) (Auto) 6.0 % (0.0-12.0) Eosinophils (%) (Auto) 1.0 % (0.0-7.0) Basophils (%) (Auto) 0.1 % (0.0-2.0) Neutrophils # (Auto) 4.9 10 ^3/uL (1.6-8.6) Lymphocytes # (Auto) 2.3 10 ^3/uL (0.4-5.4) Monocytes # (Auto) 0.5 10 ^3/uL (0-1.3) Eosinophils # (Auto) 0.1 10 ^3/uL (0-0.8) Basophils # (Auto) 0 10 ^3/uL (0-0.2) Nucleated Red Blood Cells 0.1 % Sodium Level 144 mmol/L (136-145) Potassium Level 3.7 mmol/L (3.5-5.1) Chloride Level 104 mmol/L (98-107) Carbon Dioxide Level 33 mmol/L (20-31) Anion Gap 7 (5-15) Blood Urea Nitrogen 17 mg/dL (9-23) Creatinine 0.55 mg/dL (0.700-1.30) Glomerular Filtration Rate Calc 116 mL/min (>90) BUN/Creatinine Ratio 30.9 (10.0-20.0) Serum Glucose 96 mg/dL (74-106) Calcium Level 9.6 mg/dL (8.7-10.4) Total Bilirubin 0.4 mg/dL (0.2-1.0) Aspartate Amino Transferase (AST) 26 U/L (13-40) Alanine Aminotransferase (ALT) 57 U/L (7-40) Alkaline Phosphatase 88 U/L (46-116) Total Protein 6.5 g/dL (5.7-8.2) Albumin 4.0 g/dL (3.2-4.8) Urine Color Light-yellow (Yellow) Urine Clarity Clear (Clear) Urine pH 7.0 (5.0-9.0) Urine Specific [place] 1.020 (1.001-1.035) Urine Protein Trace (Negative) Urine Ketones Trace (Negative) Urine Blood Negative /uL (Negative) Urine Nitrite Negative (Negative) Urine Bilirubin Negative (Negative) Urine Urobilinogen 4 mg/dL (Negative) Urine Leukocyte Esterase Negative /uL (Negative) Urine RBC 9 /hpf (0 - 3) Urine Microscopic WBC 4 /HPF (0-3) Urine Squamous Epithelial Cells Few /hpf (<5) Urine Bacteria None seen /hpf (None Seen) Urine Glucose Normal mg/dL (Normal) Vancomycin Level Trough 17.3 ug/mL (5-10) Blood Gas Specimen Type Arterial Blood Gas Sample Site Right radial Blood Gas Patient Temperature 37.0 Arterial Blood Date Drawn [id number] Arterial Blood pH 7.447 (7.350-7.450) Arterial Blood Partial Pressure CO2 55.8 mmHg (35.0-48.0) Arterial Blood Partial Pressure O2 50.7 mmHg (83.0-108.0) Arterial Blood HCO3 37.7 mmol/L (21.0-28.0) Arterial Blood Oxygen Saturation 87.3 % (94.0-98.0) Arterial Blood Base Excess 11.5 mmol/L (-2.0-3.0) Arterial Blood Oxyhemoglobin 86.5 % (94.0-98.0) Arterial Blood Carboxyhemoglobin 0.5 % (0.5-1.5) Arterial Blood Methemoglobin 0.4 % (0.0-1.5) Dav Test Modified Blood Gas Total Hemoglobin 13.00 g/dL (13.5-17.5) Blood Gas Set Respiration Rate 18.0 Blood Gas Modality Mask - bipap Blood Gas Spontaneous Rate 37 FiO2 % 35.0 Blood Gas Spontaneous Tidal Volume 430 Blood Gas Inspiratory Pressure 18.0 Blood Gas EPAP 5 Blood Gas IPAP 18 Bl Gas Inspiratory/Expiratory Ratio 1:3 Blood Gas Critical Value Read Back Yes Blood Gas Notified Whom harish Molina Blood Gas Notified Time [id number] Blood Gas Notified By denys Solis faustin Test 05/24/25 04:52 05/23/25 06:45 05/21/25 16:38 05/21/25 12:03 Magnesium Level 2.1 mg/dL (1.6-2.6) POC Glucose 125 mg/dl (70-106) Influenza Type A Antigen Negative (Negative) Influenza Type B Antigen Negative (Negative) SARS-CoV-2 Antigen (Rapid) Negative (NEGATIVE) Blood Gas Liter Flow 3.00 Test 05/21/25 08:54 05/20/25 20:22 05/20/25 16:30 Prothrombin Time 10.3 sec (9.3-11.8) Prothrombin Time INR 0.97 (0.9-1.15) B-Type Natriuretic Peptide 7.06 pg/mL (0-100) Urine Calcium Oxalate Crystals Few (None Seen) Other Laboratory Tests 05/29/25 05:15 Brief Hx & Hospital Course: see dictated note Condition at Discharge: Fair Final Diagnosis/Problems List resp failure Discharge Disposition: Home Discharge Instruct/Medications Diet: See Comment Diet comment: tube feedings Activity: No Restrictions, As Tolerated Follow Up/Referral: fu with pcp Medications: resume home meds script to pharmacy Scheduled Alendronate Sodium (Alendronate Sodium), 1 TAB PO QWEEKLY, (Reported) Amoxicillin & Pot Clavulanate (Amoclan), 400 MG PO BID Cholecalciferol (Vitamin D3), 5,000 UNIT PO DAILY, (Reported) Cholecalciferol (D-5000), 1 TAB PO DAILY, (Reported) Clotrimazole (Clotrimazole), 1 APPLIC TOP Q12HR, (Reported) Clotrimazole (Topical) (Clotrimazole Antifungal), 1 TOP DAILY, (Reported) Cyanocobalamin (Vitamin B12), 1,000 MCG PO DAILY, (Reported) Finasteride (Finasteride), 1 TAB PO DAILY, (Reported) Yivvkvbuktb-Xlmexohbyqav-Pflat (Trelegy Ellipta 100-62.5-25 Mcg/INH), 1 PUFF INH DAILY, (Reported) Folic Acid (Folic Acid), 1 MG PO DAILY, (Reported) Furosemide (Furosemide), 1 TAB PO DAILY, (Reported) Magnesium Oxide (Magnesium Oxide), 1 TAB PO DAILY, (Reported) Magnesium Oxide (Mag-Ox), 1 TAB PO DAILY, (Reported) Meloxicam (Meloxicam), 1 TAB PO DAILY, (Reported) Niacin (Niacin Er), 500 MG PO DAILY, (Reported) Xyxkf-2-Uhkb Ethyl Esters (Mfbkl-7-Tnfl Ethyl Esters), 1 CAP PO BID, (Reported) Potassium Bicarbonate-Citric A (Effer-K), 1 TAB PO DAILY, (Reported) Pravastatin Sodium (Pravachol Tablet), 10 TAB PO DAILY, (Reported) Pravastatin Sodium (Pravachol Tablet), 10 MG GT DAILY, (Reported) Prednisone (Prednisone), 1 TAB PO DAILY, (Reported) Sulfamethoxazole-Trimethoprim (Bactrim), 10 ML GT BID Tamsulosin Hcl (Tamsulosin Hcl), 0.4 MG PO QPM, (Reported) Timolol Maleate (Timolol Maleate Ophthalmi), Unknown Dose EACHSHANTAE QAKim, (Reported) Zinc W/ Vitamin C (Vitamin C+Zinc 15-60 mg), 1 TAB PO DAILY, (Reported) Scheduled PRN Acetaminophen (Acetaminophen), 500 MG PO Q6HP PRN for MILD PAIN, (Reported) Hydrocodone-Acetaminophen (Hydrocodone Bitartrate/AC 10-325 mg), 1 TAB PO BID PRN for PAIN SCALE 7 THRU 10, (Reported) Ipratropium-Albuterol (Ipratropium Harrison/Albut), 1 HALEY IN Q4HPRN PRN for SHORTNESS OF BREATH, (Reported) Miscellaneous Medications Acetaminophen (Acetaminophen Extra Stren), PO, (Reported) Budesonide (Inhalation) (Budesonide), 0.5 MG, (Reported) Diclofenac Sodium (Topical) (Diclofenac Sodium), 3 % EX, (Reported) Ketoconazole (Ketoconazole), 1 APPLIC TOP, (Reported) Levetiracetam (Levetiracetam), ML PO, (Reported) Lidocaine (Ztlido), 1.8 % EX, (Reported) Mupirocin Calcium (Topical) (Mupirocin), 2 % EX, (Reported) Niacin (Niacin), PO, (Reported) Nutritional Supplements (Ensure Plus Van), PO, (Reported) Boring-3 Fatty Acids (Boring-3), Unknown Dose PO, (Reported) Oxybutynin Chloride (Oxybutynin Chloride), 5 MG PO, (Reported) Pantoprazole Sodium (Pantoprazole Sodium), 40 MG, (Reported) Timolol Maleate (Ophth) (Timolol Maleate), EACHEYE, (Reported) Discharge Statement: "Patient was advised to return to the ER or call 911 if any headaches, dizziness, shortness of breath, chest pain, abdominal pain, bleeding, fevers, or worsening of medical condition. Patient was counseled about treatment plan, medications, possible side effects, patientverbalized understanding. All questions were answered to the best of my ability. This discharge took greater then 30 minutes in planning, reviewing documentation, counseling the patient, and discussing with other team members." ASSESSMENT ASSESSMENT Assessment resp failure Date of Service: May 30, 2025 Billing Provider: GABRIELLE BOLAÑOS MD Common Visit Codes: 54195-DXP/OBS DISCH DAY >30min GABRIELLE BOLAÑOS MD May 30, 2025 16:07
[2025-05-30] MEDS ORDERED: AMPI500C9 PO (16:10)
[2025-05-30] MEDS ORDERED: PRED20TA2 PO (16:10)
[2025-05-30] MEDS ORDERED: PRED10TA PO (16:10)
[2025-05-30] MEDS ORDERED: POLY335015 GT (16:10)
--- NOTE | 2025-05-30 16:36 | DVHDS ---
DATE OF DISCHARGE: 05/30/2025 HISTORY OF PRESENT ILLNESS: The patient is a 54-year-old gentleman who was admitted with urinary tract infection and has history of diabetes, COPD, chronic respiratory failure, hypertension, seizure disorder, PEG tube placement, and previous neurocysticercosis. HOSPITAL COURSE: The patient had a bladder ultrasound that showed a bladder volume of 221 mL. The patient's urine culture grew Enterococcus faecalis, sensitive to ampicillin. The patient went into acute respiratory failure while in the hospital requiring use of BiPAP. The patient had chest x-ray that showed no acute disease. The patient was eventually weaned off the BiPAP and is now doing well. He will be discharged home to resume his home medications as well as to be on ampicillin 500 mg t.i.d. for 7 days, prednisone in a tapering dose down to 10 mg daily and MiraLax 17 g daily. He will follow up at this time in 1 week. FINAL DIAGNOSES: Therefore: * UTI with likely septic shock secondary to E. faecalis. * BPH with intermittent catheterization. * Diabetes mellitus. * History of seizure disorder. 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 * History of neurocysticercosis. * COPD with exacerbation. * Acute on chronic respiratory failure. * Chronic diastolic heart failure. * Bedbound status with functional paraplegia. * History of PEG feedings. * ____ fecal impaction. Time spent in discharge planning and review of plan with the patient, family at bedside and nursing was 41 minutes. MD MALINDA Briseno/APOLINAR/HARRIETT TID: [id number] RECEIPT: [id number]
== END 2025-05-30 18:00 | disposition home or self-care (01) | DRG 871 ==
LOC: ER 14:30 → OVERFLOW 20:02 → DOU 20:09 → WEST WING 05-21 03:38 → TELE-WESTW 05-22 13:30 → ICU CENTRL 05-23 13:41 → DOU IN ADS 05-25 16:27 → OVERFLOW 05-28 10:47 → DOU 05-28 10:53 → OVERFLOW 05-28 11:23 → DOU 05-28 11:33 → TELE-WESTW 05-29 16:50
PROVIDERS: ADMIT Internal Medicine; ATTEND Internal Medicine
PROC: 5A09357 Assistance with Respiratory Ventilation, Less than 24 Consecutive Hours, Continuous Positive Airway Pressure (ICD-10-PCS; principal; 2025-05-21)
PROC: 5A09357 Assistance with Respiratory Ventilation, Less than 24 Consecutive Hours, Continuous Positive Airway Pressure (ICD-10-PCS; 2025-05-22)
PROC: 5A09357 Assistance with Respiratory Ventilation, Less than 24 Consecutive Hours, Continuous Positive Airway Pressure (ICD-10-PCS; 2025-05-23)
PROC: 5A09357 Assistance with Respiratory Ventilation, Less than 24 Consecutive Hours, Continuous Positive Airway Pressure (ICD-10-PCS; 2025-05-24)
PROC: 5A09357 Assistance with Respiratory Ventilation, Less than 24 Consecutive Hours, Continuous Positive Airway Pressure (ICD-10-PCS; 2025-05-25)
PROC: 5A09357 Assistance with Respiratory Ventilation, Less than 24 Consecutive Hours, Continuous Positive Airway Pressure (ICD-10-PCS; 2025-05-26)
PROC: 5A09357 Assistance with Respiratory Ventilation, Less than 24 Consecutive Hours, Continuous Positive Airway Pressure (ICD-10-PCS; 2025-05-27)
PROC: 5A09357 Assistance with Respiratory Ventilation, Less than 24 Consecutive Hours, Continuous Positive Airway Pressure (ICD-10-PCS; 2025-05-28)
PROC: 5A09357 Assistance with Respiratory Ventilation, Less than 24 Consecutive Hours, Continuous Positive Airway Pressure (ICD-10-PCS; 2025-05-29)
DX: A41.81 Sepsis due to Enterococcus (principal); G93.41 Metabolic encephalopathy; J15.69 Pneumonia due to other Gram-negative bacteria; J15.9 Unspecified bacterial pneumonia; R65.21 Severe sepsis with septic shock; J96.21 Acute and chronic respiratory failure with hypoxia; J96.22 Acute and chronic respiratory failure with hypercapnia; N39.0 Urinary tract infection, site not specified; I50.32 Chronic diastolic (congestive) heart failure; J44.0 Chronic obstructive pulmonary disease with (acute) lower respiratory infection; G82.20 Paraplegia, unspecified; I13.0 Hypertensive heart and chronic kidney disease with heart failure and stage 1 through stage 4 chronic kidney disease, or unspecified chronic kidney disease; J44.1 Chronic obstructive pulmonary disease with (acute) exacerbation; F17.210 Nicotine dependence, cigarettes, uncomplicated; Z20.822 Contact with and (suspected) exposure to COVID-19; I48.91 Unspecified atrial fibrillation; E78.5 Hyperlipidemia, unspecified; E11.22 Type 2 diabetes mellitus with diabetic chronic kidney disease; G40.909 Epilepsy, unspecified, not intractable, without status epilepticus; H40.89 Other specified glaucoma; N40.1 Benign prostatic hyperplasia with lower urinary tract symptoms; K56.41 Fecal impaction; N18.9 Chronic kidney disease, unspecified; Z99.81 Dependence on supplemental oxygen; Z98.2 Presence of cerebrospinal fluid drainage device; Z93.1 Gastrostomy status; Z88.1 Allergy status to other antibiotic agents; Z79.2 Long term (current) use of antibiotics; Z79.899 Other long term (current) drug therapy; Z90.49 Acquired absence of other specified parts of digestive tract; Z87.11 Personal history of peptic ulcer disease; Z74.01 Bed confinement status
CPT/HCPCS: 36415; 36600; 71045; 74018; 76857; 80048; 80053; 80202; 81001; 82805; 82962; 83735; 83880; 85025; 85610; 87040; 87081; 87086; 87088; 87186; 87426; 87804; 94640; 94660; 94668; 97110; 97163; G0378; J1335; J2185; J2470; J2543

== ENCOUNTER 2025-06-10 11:45 | Inpatient (IN) | payer OTHER, MEDICAID ==
[~2025-06-10] VITALS: Ht 160 cm; Wt 54.8 kg
[2025-06-10 11:45] VITALS: PULSE 110; RESP 12; O2SAT 65
[~2025-06-10 11:45] MED LIST changes: +ACET-6 PO; +AMPI500C9 PO; +CHOLTAB11 PO; +FIN5T PO; +FLUT1AER3 INH; +FURO20TA4 PO; +KETO2CRE4 TOP; +LEVE5SOL PO; +MAGN241.4 PO; +NIAC500T9 PO; +OMEG-86 PO; +POLY335015 GT; +POTA10TA48 PO; +PRAV20TA3 GT; +PRED10TA PO; +PRED20TA2 PO; +TIMO0.5S32 EACHEYE; +[UNRECOGNIZED DRUG - CODE] PO; -[UNRECOGNIZED DRUG - CODE] PO; +[UNRECOGNIZED DRUG - CODE] TOP
[2025-06-10] MEDS: MIDAZOLAM DRIP 50 mg/50mL 50 ML IV ONE (11:53)
--- NOTE | 2025-06-10 11:57 | ED.PDOC ---
SOB-HPI HPI Comments This is a 54 year old male DELLAA presenting to the ED with chief complaint of SOB. 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 EMS states that the patient had an O2 saturation in the low 70s initially, then provided a DuoNeb breathing treatment with no relief noted. EMS notes patient was then at 65% when placed on CPAP. EMS reports patient passed out when being transported from ambulance to ED bed, but still had pulses. Patient's BG was noted to be 288 in the ED. Patient unable to answer questions at this time. Time Seen by MD: 11:54 Reviewed notes: Nurses Notes, Taper Printed Circuit Layout Notes, Medications, Allergies Information Source: Emergency Med Personnel Mode of Arrival: EMS Severity: Moderate Timing: Hours Duration: Since onset Context: At Rest PE Risk Factors: None History of: None Prehospital treatment: Breathing Tx, Oxygen Modifying Factors: Nothing Past Medical History PAST MEDICAL HISTORY: GERD, High Lipids, Seizures Past Medical History (Other): Prostatomegaly, neurocysticercosis Surgical History: Unknown Family History Family History: Reviewed,noncontributory to illness, Unknown Social History Smoker: Unknown Alcohol: Unknown Drugs: Unknown Lives In: Home Constitutional: denies: chills, diaphoresis, fatigue, fever, malaise, sweats, weakness, others EENTM: denies: blurred vision, double vision, ear bleeding, ear discharge, ear drainage, ear pain, ear ringing, eye pain, eye redness, hearing loss, mouth pain, mouth swelling, nasal discharge, nose bleeding, nose congestion, nose pain, photophobia, tearing, throat pain, throat swelling, voice changes, others Respiratory: reports: shortness of breath, wheezing; denies: cough, hemoptysis, orthopnea, SOB at rest, SOB with excertion, stridor, others Cardiovascular: denies: chest pain, dizzy spells, diaphoresis, Dyspnea on exertion, edema, irregular heart beat, left arm pain, lightheadedness, palpitations, PND, syncope, others Gastrointestinal: denies: abdomen distended, abdominal pain, blood streaked bowels, constipated, diarrhea, dysphagia, difficulty swallowing, hematemesis, melena, nausea, poor appetite, poor fluid intake, rectal bleeding, rectal pain, vomiting, others Neurological: denies: dizziness, fainting, headache, left sided numbness, left sided weakness, numbness, paresthesia, pre-existing deficit, right sided n umbness, right sided weakness, seizure, speech problems, tingling, tremors, weakness, others Musculoskeletal: denies: back pain, gout, joint pain, joint swelling, muscle pain, muscle stiffness, neck pain, others Integumetry: denies: bruises, change in color, change in hair/nails, dryness, laceration, lesions, lumps, rash, wounds, others Allergic/Immunocompromised: denies: Difficulty Healing, Frequent Infections, Hives, Itching, others Hematologic/Lymphatic: denies: anemia, blood clots, easy bleeding, easy bruising, swollen glands, others Endocrine: denies: excessive hunger, excessive sweating, excessive thirst, excessive urination, flushing, intolerance to cold, intolerance to heat, unexplained weight gain, unexplained weight loss, others Psychiatric: denies: anxiety, bipolar disorder, depression, hopeless, panic disorder, schizophrenia, sleepless, suicidal, others Unable to Obtain due to: Medical Urgency, Intubated All Other Systems: Reviewed and Negative Physical Exam General Appearance: Normal, Severe Distress HEENT: Normal ENT Inspection, Pharynx Normal, TMs Normal Neck: Full Range of Motion, Non-Tender, Normal, Normal Inspection Respiratory: Chest Non-Tender, Lungs Clear, No Accessory Muscle Use, No Respiratory Distress, Normal Breath Sounds Cardiovascular: No Edema, No JVD, No Murmur, No Gallop, Normal Peripheral Pulses, Tachycardia Breast Exam: Deferred Gastrointestinal: No Organomegaly, Non Tender, No Pulsatile Mass, Normal Bowel Sounds, Soft Genitalia: Deferred Pelvic: Deferred Rectal: Deferred Extremities: No calf tenderness, No pedal edema Musculoskeletal : Apperance: Normal Neurologic: Disoriented Cerebellar Function: NOT DONE Reflexes: NOT DONE Skin: Dry, Normal Color, Warm Peripheral Pulses: 3+ Radial (R), 3+ Radial (L) Lymphatic: No Adenopathy Was a procedure done? 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 of landscape architect: Attending Physician Indication: Volume resuscitation, Suspected infection Room prepared for procedure: Yes Printing Specialist performed hand hygien: Yes Maximal sterile barrier precau: Mask/Eye shield, Sterile gown, Cap, Sterlie gloves, Large sterlie drape Skin Preparation: Chlorhexidine gluconate Skin preparation completely dr: Yes Insertion site: Right, Internal jugular Central line catheter type: Ooi-oyclkmzg-syi dialysis Number of lumens: 3 Central line exchanged over a: No Antiseptic ointment applied to: No Post Assessment: Chest X-Ray, Proper placement Informed consent obtained: Yes Risks/benefits/alt described: Yes Intubation Indication: Respiratory Insufficiency, Altered Mental Status, Airway Protection Prep: Preoxygenation Intubation Approach: Orotracheal Intubation size: cm (8) Informed consent obtained: Yes Risks/benefits/alt described: Yes Notes 20mg of Etomidate and 100mg of Rocuronium Differential Dx Differential Diagnosis: Anxiety, Asthma, Bronchitis, CHF, COPD, Pneumonia, Respiratory Distress X-Ray, Labs, Meds, VS Vital Signs Date Time Temp Pulse Resp B/P (MAP) Pulse Ox O2 Delivery O2 Flow Rate FiO2 06/10/25 13:41 105 18 109/68 (82) 100 100 06/10/25 13:15 73/48 06/10/25 12:20 109 06/10/25 11:45 98.1 110 12 113/61 65 98.1 Lab Test 06/10/25 13:05 06/10/25 12:55 Range/Units White Blood Count 10.0 4.4-10.8 10^3/uL Red Blood Count 3.86 L 4.0-5.20 10^6/uL Hemoglobin 11.5 L 12.2-16.2 g/dL Hematocrit 33.9 L 36.0-46.0 % Mean Corpuscular Volume 87.9 80.0-100.0 fL Mean Corpuscular Hemoglobin 29.7 28.0-32.0 pg Mean Corpuscular Hemoglobin Concent 33.8 32.0-36.0 g/dL Red Cell Distribution Width 13.9 11.8-14.3 % Platelet Count 281 140-450 10^3/uL Mean Platelet Volume 7.7 6.9-10.8 fL Neutrophils (%) (Auto) 89.9 H 37.0-80.0 % Lymphocytes (%) (Auto) 4.2 L 10.0-50.0 % Monocytes (%) (Auto) 5.7 0.0-12.0 % Eosinophils (%) (Auto) 0.1 0.0-7.0 % Basophils (%) (Auto) 0.1 0.0-2.0 % Neutrophils # (Auto) 9.0 H 1.6-8.6 10 ^3/uL Lymphocytes # (Auto) 0.4 0.4-5.4 10 ^3/uL Monocytes # (Auto) 0.6 0-1.3 10 ^3/uL Eosinophils # (Auto) 0 0-0.8 10 ^3/uL Basophils # (Auto) 0 0-0.2 10 ^3/uL Nucleated Red Blood Cells 0.1 % Prothrombin Time Pending Prothrombin Time INR Pending Activated Partial Thromboplast Time Pending Sodium Level Pending Potassium Level Pending Chloride Level Pending Carbon Dioxide Level Pending Anion Gap Pending Blood Urea Nitrogen Pending Creatinine Pending Glomerular Filtration Rate Calc Pending BUN/Creatinine Ratio Pending Serum Glucose Pending Lactic Acid Level Pending Calcium Level Pending Total Bilirubin Pending Aspartate Amino Transferase (AST) Pending Alanine Aminotransferase (ALT) Pending Alkaline Phosphatase Pending Total Protein Pending Albumin Pending Urine Color Light-yellow Yellow Urine Clarity Clear Clear Urine pH 6.5 5.0-9.0 Urine Specific [place] 1.012 1.001-1.035 Urine Protein Negative Negative Urine Ketones Negative Negative Urine Blood Negative Negative /uL Urine Nitrite Negative Negative Urine Bilirubin Negative Negative Urine Urobilinogen Normal Negative mg/dL Urine Leukocyte Esterase Trace Negative /uL Urine RBC 6 0 - 4 /hpf Urine Microscopic WBC 4 0-5 /HPF Urine Squamous Epithelial Cells Few <5 /hpf Urine Bacteria None seen None Seen /hpf Urine Glucose Normal Normal mg/dL Current Medications Medications (Trade) Dose Ordered Sig/Ezequiel Route Start Time Stop Time Status Last Admin Cefepime HCl 50 ml @ 12.5 mls/hr Q8HR IV 06/10/25 14:00 06/10/25 13:52 Vancomycin HCl 250 ml @ 250 mls/hr ONCE ONCE IV 06/10/25 12:15 06/10/25 13:14 DC 06/10/25 12:15 Norepinephrine Bitartrate 250 ml @ 3.75 mls/hr Q24H IV 06/10/25 13:15 06/10/25 13:15 Patient altered. Came in on CPAP. Unable to get any response from the patient. Had to intubate the patient. Sepsis protocol. Central line placed. Fluids given. Levophed started for low pressure. Reviewed his history. Continue to monitor. Time of 1ST Reevaluation: 12:52 Reevaluation 1ST: Unchanged Patient Education/Counseling: Pt Unresponsive Family Education/Counseling: No Family Present SEPSIS Sepsis Screen Physician Orders Comprehensive Metabolic Panel (06/10/25 12:01) PTPTT (06/10/25 12:01) Chest Portable (06/10/25 12:01) Accucheck (06/10/25 12:01) Blood Culture (06/10/25 12:01) Lactic Acid W/ Reflex Order (06/10/25 14:00) Cefepime 1gm/ 50ml (Maxipime 1gm/50ml) (06/10/25 14:00) Notify Md If Map <65 Or Bp<90 (06/10/25 12:01) If Map<65 Start Vasopressor (06/10/25 12:01) Sepsis Reassesment After Fluid (06/10/25 13:01) Head Without Contrast (06/10/25 12:01) Respiratory Culture W/ Gs (06/10/25 12:10) Vent Ip Init (06/10/25 11:45) Abg W/ Co-Ox (06/10/25 13:15) Electrocardigram (06/10/25 12:24) Norepinephrine 8 Mg/250ml Kit (Levophed) (06/10/25 13:15) Midazolam Drip 50 Mg/50ml (Versed Drip 5 (06/10/25 13:45) Rass Sedation Scale Q1HR (06/10/25 13:32) Communication Order (06/10/25 13:33) Vital Signs Date Time Temp Pulse Resp B/P (MAP) Pulse Ox O2 Delivery O2 Flow Rate FiO2 06/10/25 13:41 105 18 109/68 (82) 100 100 06/10/25 13:15 73/48 06/10/25 12:20 109 06/10/25 11:45 98.1 110 12 113/61 65 98.1 Laboratory Tests Test 06/10/25 13:05 Lactic Acid Level Pending White Blood Count 10.0 10^3/uL (4.4-10.8) Medications Medications Dose Ordered Sig/Ezequiel Route Start Time Stop Time Status Last Admin Dose Admin Cefepime HCl 50 ml @ 12.5 mls/hr Q8HR IV 06/10/25 14:00 06/10/25 13:52 Norepinephrine Bitartrate 250 ml @ 3.75 mls/hr Q24H IV 06/10/25 13:15 06/10/25 13:15 Vancomycin HCl 250 ml @ 250 mls/hr ONCE ONCE IV 06/10/25 12:15 06/10/25 13:14 DC 06/10/25 12:15 Departure 1 Departure Time of Disposition: 13:55 Impression: Primary Impression: Metabolic encephalopathy Additional Impressions: Sepsis, unspecified organism Qualified Codes: A41.9 - Sepsis, unspecified organism Respiratory failure Qualified Codes: J96.01 - Acute respiratory failure with hypoxia Disposition: ADMITTED INPATIENT Admit to: ICU Condition: Guarded Critical Care Note Critical Care Time?: Yes (90 min-critical care time only) Stability Stability form required: No Heart Score Heart Score: Heart Score Response (Comments) Value History Slightly Suspicious 0 EKG Normal 0 Age 45-64 1 Risk Factors >3 or Hx ASHD 2 Troponin Normal limit 0 Total 3 I personally scribed for ANT SIMS MD ([email or web address]) on 06/10/25 at 11:57. Electronically submitted by Kishan Moreland [email or web address]). ANT SIMS MD Jun 10, 2025 11:57
[2025-06-10] MEDS: VANCOMYCIN 1GM/250ML KIT 250 ML IV ONE (12:15)
--- NOTE | 2025-06-10 12:32 | DVH ---
EXAM: XY CHEST PORTABLE HISTORY: sob COMPARISON: None TECHNIQUE: Portable semi-erect AP view of the chest was performed. FINDINGS: Endotracheal tube is identified with its tip 2.2 cm above the bob. OG tube is identified with its tip in the duodenal bulb. Right IJ central line is identified with its tip in the lower SVC. PEG tu be is present. There are infiltrates and/or effusions in the bilateral lung bases, [id number]- right, partially obscuring the left hemidiaphragm. No pneumothorax. The heart is not enlarged. There are multiple old right rib fractures. IMPRESSION: 1. Mechanical ventilation with tubes and lines as above. 2. Bilateral lung base infiltrates and/or effusions, [id number]-grsy-right.
[2025-06-10] MEDS: NOREPINEPHRINE 8 MG/250ML KIT 250 ML IV ONE (12:56)
[2025-06-10 13:07] LABS: Urine Protein, UAD Negative (Negative)
[2025-06-10] MEDS: NOREPINEPHRINE 8 MG/250ML KIT 250 ML IV SCH (13:15)
[2025-06-10 13:42] LABS: Hematocrit 33.9 % (36.0-46.0); Hemoglobin 11.5 g/dL (12.2-16.2); Mean Corpuscular Hemoglobin 29.7 pg (28.0-32.0); Mean Corpuscular Volume 87.9 fL (80.0-100.0); Nucleated Red Blood Cells % 0.1 %
--- NOTE | 2025-06-10 13:50 | DVH ---
CLINICAL INFORMATION: Altered mental status. TECHNIQUE: Axial imaging was obtained through the brain without contrast. Coronal and sagittal reform atted images were obtained, reviewed, and stored. Images were reviewed in brain and bone windows. Al l CT scans at this medical facility are performed using dose modulation techniques as appropriate to a performed exam including the following: Automated exposure control was utilized; adjustment of the MA and/or KV according to patient size; and use of iterative reconstruction technique. CTDIvol = 60.5 mGy DLP = 1192.14 mGy-cm COMPARISON: None FINDINGS: There is no acute intracranial hemorrhage. No mass effect or midline shift. Scattered small parenchymal calcifications, may be seen with prior neurocysticercosis infection Right posterior appr oach FIFTH HAND shunt catheter extends into the lanterior horn of the left lateral ventricle with the tip shira r the level of the foramen of [place]. The ventricles and sulci are within normal limits in size for ag e. Basal cisterns are patent. There is lucency in the central aspect of the medulla extending to the spinal cord near the level of the foramen magnum, appears chronic, of uncertain etiology. The calvari um is unremarkable. Paranasal sinuses and mastoid air cells are clear. IMPRESSION: 1. No evidence of acute intracranial hemorrhage. 2. FIFTH HAND shunt catheter as described above. Ventricles are within normal limits in size. Basal cistern s appear patent. 3. Focal lucency in the central aspect of the medulla and extending to the spinal cord, with chronic appearance, of uncertain etiology. MRI could be considered to further characterize if clinically umer cated.
[2025-06-10 13:52] LABS: Alanine Aminotransferase 22 U/L (7-40); Albumin 4.0 g/dL (3.2-4.8); Alkaline Phosphatase 96 U/L (46-116); BUN/Creatinine Ratio 20.0 (10.0-20.0); Blood Urea Nitrogen 14 mg/dL (9-23); Potassium 5.0 mmol/L (3.5-5.1); Total Protein 6.7 g/dL (5.7-8.2)
[2025-06-10] MEDS: CEFEPIME 1GM/50ML 50 ML IV SCH (13:52)
[2025-06-10 13:53] LABS: INR 1.05 (0.9-1.15); Partial Thromboplastin Time 26.6 SEC (24.5-34.5); Prothrombin Time 11.1 sec (9.3-11.8)
[2025-06-10] MEDS: MIDAZOLAM DRIP 50 mg/50mL 50 ML IV SCH (13:55)
[2025-06-10] MEDS: SODIUM CHLORIDE 0.9% 1,000 ML IV ONE ×4 (14:00→18:32)
[2025-06-10 14:02] LABS: Anion Gap 8.99999 (5-15); Bilirubin, Total 0.2 mg/dL (0.2-1.0); Calcium 11.8 mg/dL (8.7-10.4); Chloride 85 mmol/L (98-107); Glucose 222 mg/dL (74-106); Sodium 134 mmol/L (136-145)
[2025-06-10 14:04] LABS: Carbon Dioxide > 40 mmol/L (20-31)
[2025-06-10 14:30] LABS: Base Excess 15.8 mmol/L (-2.0-3.0)
[2025-06-10] MEDS: fentaNYL Drip 2500mCg/250mlNS 250 ML IV SCH (14:54)
[2025-06-10 15:06] VITALS: BP 109/68; PULSE 105; RESP 18; O2SAT 100
[2025-06-10] MEDS: ACETAMINOPHEN IV 1000 MG/100ML (10MG/ML) IV ONE (19:12)
[2025-06-10 21:30] VITALS: PULSE 77; RESP 20; O2SAT 35
[2025-06-10] MEDS ORDERED: ONDANSETRON HCL 4 MG/2 ML VIAL IV PRN (21:30)
[2025-06-10] MEDS ORDERED: DEXTROSE (50%) 50ML SYRG IV PRN (21:30)
[2025-06-10] MEDS: SODIUM CHLORIDE 0.9% 1,000 ML IV SCH (21:30)
[2025-06-10] MEDS ORDERED: HYDROcodone-ACET 5/325MG TAB PO PRN (21:30)
[2025-06-10] MEDS: InsuLIN REG 1unit/0.01ml Soln (100units/ml) SC SCH (22:00)
[2025-06-10] MEDS: ACCU-CHEK COMFORT CURVE STRIP VI SCH (22:08)
[2025-06-10] MEDS: levETIRAcetam 500 mg/100ml 100 ML IV SCH (22:08)
[2025-06-10] MEDS: PANTOPRAZOLE 40 MG/10 ML VIAL INJ IV SCH (22:08)
--- NOTE | 2025-06-10 23:13 | DVHHP2 ---
History of Present Illness Reason for Visit: Acute respiratory failure History of Present Illness The patient is a 54-year-old male with past medical history of GERD, hyperlipidemia and seizures who presented to [facility] ED with complaint of shortness of breaths. 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 Patient was given breathing treatment with no relief, desaturating on oxygen at 65% and was placed on CPAP EN route to our facility ED. Patient passed out when being transported from ambulance to the ED bed, but still had pulses and subsequently intubated. Laboratory data shows WBC 10.0, hemoglobin 11.5, hematocrit 33.9, platelets 281, sodium 134, potassium 5.0, BUN 14, creatinine 0.70, glucose 222, calcium 11.8, blood pressure 103/55, heart rate 84, temperature 101.3 F trending down to 99.3. Head CT showed no acute intracranial hemorrhage. Chest x-ray revealing bilateral lung base infiltrates and/or effusion, left greater than right. Patient was started on IV antibiotic regimen vancomycin, please see medication orders section in the computer. On my assessment, patient is fully intubated, no diaphoresis, no diarrhea, no vomiting, no fever, no chills. Patient was admitted for further evaluation and medical management. Past Medical History GERD, High Lipids, Seizures, Prostatomegaly, Neurocysticercosis Past Surgical History Unknown Family History Reviewed, noncontributory to the management of this case. Past Social History The patient lives at home, no history of smoking, alcohol or illicit drugs abuse on file. Review of Systems Constitutional: Yes: Weakness; No: Fever, Chills, Sweats, Malaise, Other Eyes: No: Pain, Vision change, Conjunctivae inflammation, Eyelid inflammation, Other, Redness ENT: No: Ear pain, Ear discharge, Nose pain, Nose discharge, Nose congestion, Mouth pain, Mouth swelling, Throat pain, Throat swelling, Other Respiratory: Shortness of breath, SOB with excertion, Other (SOB at rest); No: Cough, Dry, Wheezing, Hemoptysis, Pleuritic Pain, Sputum, Wheezing Cardiovascular: No: Chest Pain, Palpitations, Orthopnea, Paroxysmal Noc. Dyspnea, Edema, Lt Headedness, Other Gastrointestinal: No: Nausea, Vomiting, Abdominal Pain, Diarrhea, Constipation, Melena, Hematochezia, Other Genitourinary: No Dysuria, No Frequency, No Incontinence, No Hematuria, No Retention; Other (Montague catheter in place) Musculoskeletal: No: other, neck pain, shoulder pain, arm pain, back pain, hand pain, leg pain, foot pain Skin: No: Rash, Lesions, Jaundice, Bruising, Other Neurological: Confusion; No: Weakness, Numbness, Incoordination, Change in speech, Seizures, Other Allergies: Coded Allergies: Ceftriaxone (Verified Allergy, Unknown, 06/10/25) Remdesivir (Verified Allergy, Unknown, 06/10/25) Medications Current Medications Medications Dose Ordered Sig/Ezequiel Route Start Time Stop Time Status Last Admin Dose Admin Cefepime HCl 50 ml @ 12.5 mls/hr Q8HR IV 06/10/25 14:00 06/10/25 22:09 12.5 MLS/HR Norepinephrine Bitartrate 250 ml @ 3.75 mls/hr Q24H IV 06/10/25 13:15 06/10/25 13:15 3.75 MLS/HR Midazolam HCl 50 ml @ 1 mls/hr Q24H IV 06/10/25 13:45 06/10/25 13:57 5 MLS/HR Fentanyl Citrate 250 ml @ 2.5 mls/hr Q24H IV 06/10/25 14:45 06/10/25 14:54 2.5 MLS/HR Azithromycin 250 ml @ 125 mls/hr DAILY IV 06/11/25 10:00 Pantoprazole Sodium 40 mg BID IV 06/10/25 22:00 06/10/25 22:08 40 MG Acetaminophen 650 mg Q6HP PRN RI 06/10/25 21:30 Levetiracetam 100 ml @ 400 mls/hr BID IV 06/10/25 22:00 06/10/25 22:08 400 MLS/HR Diagnostic Test (Pha) 1 strip ACHS 06/10/25 22:00 06/10/25 22:08 1 STRIP Insulin Human Regular ACHS SC 06/10/25 22:00 Dextrose 50 ml UD PRN IV 06/10/25 21:30 Sodium Chloride 1,000 ml @ 60 mls/hr [id number] IV 06/10/25 21:30 06/10/25 21:30 60 MLS/HR Acetaminophen/ Hydrocodone Bitart 1 tab Q4HP PRN PO 06/10/25 21:30 Ondansetron HCl 4 mg Q4HP PRN IV 06/10/25 21:30 Exam Vital Signs Vital Signs Date Time Temp Pulse Resp B/P (MAP) Pulse Ox O2 Delivery O2 Flow Rate FiO2 06/10/25 22:39 75 20 120/60 (80) 98 35 06/10/25 22:30 98.8 98.8 06/10/25 21:30 Mechanical Ventilator+ General Appearance: Other (Fully intubated) HEENT: Atraumatic, PERRLA, EOMI, Mucous membr. moist/pink Respiratory: Normal air movement, Other (On ventilator) Cardiovascular: Regular rate, Normal S1, Normal S2, No murmurs Abdominal: Normal bowel sounds, Soft, No tenderness, No hepatospenomegaly, No masses Extremities: No clubbing, No cyanosis, No edema, Normal pulses, No tenderness/swelling Skin: No rashes, No significant lesion Neuro: Other (Generalized weakness) Psych/Mental Status: Other (Unknown) Labs/Xrays Labs Test 06/10/25 22:13 06/10/25 14:20 06/10/25 13:05 06/10/25 12:55 Range/Units POC Glucose 140 H 70-106 mg/dl Blood Gas Specimen Type Arterial Blood Gas Sample Site Right radial Blood Gas Patient Temperature 37.0 Arterial Blood Date Drawn [id number] Arterial Blood pH 7.465 H 7.350-7.450 Arterial Blood Partial Pressure CO2 60.2 *H 35.0-48.0 mmHg Arterial Blood Partial Pressure O2 292.6 H 83.0-108.0 mmHg Arterial Blood HCO3 42.3 H 21.0-28.0 mmol/L Arterial Blood Oxygen Saturation 99.8 H 94.0-98.0 % Arterial Blood Base Excess 15.8 H -2.0-3.0 mmol/L Arterial Blood Oxyhemoglobin 98.7 H 94.0-98.0 % Arterial Blood Carboxyhemoglobin 0.5 0.5-1.5 % Arterial Blood Methemoglobin 0.6 0.0-1.5 % Dav Test Modified Blood Gas Total Hemoglobin 12.80 L 13.5-17.5 g/dL Blood Gas Set Respiration Rate 18.0 Blood Gas Modality Vent - ac FiO2 % 100.0 Blood Gas Tidal Volume 450.0 Blood Gas PEEP or CPAP 5.0 Blood Gas Critical Value Read Back Yes Blood Gas Notified Whom Md. wilkes Blood Gas Notified Time [id number] Blood Gas Notified By Lamination Machine Operator veronica almaraz White Blood Count 10.0 4.4-10.8 10^3/uL Red Blood Count 3.86 L 4.0-5.20 10^6/uL Hemoglobin 11.5 L 12.2-16.2 g/dL Hematocrit 33.9 L 36.0-46.0 % Mean Corpuscular Volume 87.9 80.0-100.0 fL Mean Corpuscular Hemoglobin 29.7 28.0-32.0 pg Mean Corpuscular Hemoglobin Concent 33.8 32.0-36.0 g/dL Red Cell Distribution Width 13.9 11.8-14.3 % Platelet Count 281 140-450 10^3/uL Mean Platelet Volume 7.7 6.9-10.8 fL Neutrophils (%) (Auto) 89.9 H 37.0-80.0 % Lymphocytes (%) (Auto) 4.2 L 10.0-50.0 % Monocytes (%) (Auto) 5.7 0.0-12.0 % Eosinophils (%) (Auto) 0.1 0.0-7.0 % Basophils (%) (Auto) 0.1 0.0-2.0 % Neutrophils # (Auto) 9.0 H 1.6-8.6 10 ^3/uL Lymphocytes # (Auto) 0.4 0.4-5.4 10 ^3/uL Monocytes # (Auto) 0.6 0-1.3 10 ^3/uL Eosinophils # (Auto) 0 0-0.8 10 ^3/uL Basophils # (Auto) 0 0-0.2 10 ^3/uL Nucleated Red Blood Cells 0.1 % Prothrombin Time 11.1 9.3-11.8 sec Prothrombin Time INR 1.05 0.9-1.15 Activated Partial Thromboplast Time 26.6 24.5-34.5 SEC Sodium Level 134 L 136-145 mmol/L Potassium Level 5.0 3.5-5.1 mmol/L Chloride Level 85 L 98-107 mmol/L Carbon Dioxide Level > 40 *H 20-31 mmol/L Anion Gap 8.46081 5-15 Blood Urea Nitrogen 14 9-23 mg/dL Creatinine 0.70 0.700-1.30 mg/dL Glomerular Filtration Rate Calc 108 >90 mL/min BUN/Creatinine Ratio 20.0 10.0-20.0 Serum Glucose 222 H 74-106 mg/dL Hemoglobin A1c 5.9 H <5.7 % A1C Lactic Acid Level 1.7 0.4-2.0 mmol/L Calcium Level 11.8 H 8.7-10.4 mg/dL Total Bilirubin 0.2 0.2-1.0 mg/dL Aspartate Amino Transferase (AST) 22 13-40 U/L Alanine Aminotransferase (ALT) 22 7-40 U/L Alkaline Phosphatase 96 46-116 U/L Total Protein 6.7 5.7-8.2 g/dL Albumin 4.0 3.2-4.8 g/dL Urine Color Light-yellow Yellow Urine Clarity Clear Clear Urine pH 6.5 5.0-9.0 Urine Specific Otho 1.012 1.001-1.035 Urine Protein Negative Negative Urine Ketones Negative Negative Urine Blood Negative Negative /uL Urine Nitrite Negative Negative Urine Bilirubin Negative Negative Urine Urobilinogen Normal Negative mg/dL Urine Leukocyte Esterase Trace Negative /uL Urine RBC 6 0 - 4 /hpf Urine Microscopic WBC 4 0-5 /HPF Urine Squamous Epithelial Cells Few <5 /hpf Urine Bacteria None seen None Seen /hpf Urine Glucose Normal Normal mg/dL PATIENT: ISABELLE MATHEW ACCT: [id number] UNIT: [id number] : 1970 LOC: ER ROOM / BED: / AGE / SEX: 54 / M ADM STATUS: REG ER SERVICE 1201 ORDERING PHYSICIAN: ANT WILKES MD PROCEDURE(s): HWOCT - HEAD WITHOUT CONTRAST REASON: altered ORDER NUMBER(s): [id number], ACCESSION NUMBER(s): [id number] CLINICAL INFORMATION: Altered mental status. TECHNIQUE: Axial imaging was obtained through the brain without contrast. Coronal and sagittal reformatted images were obtained, reviewed, and stored. Images were reviewed in brain and bone windows. All CT scans at this medical facility are performed using dose modulation techniques as appropriate to a performed exam including the following: Automated exposure control was utilized; adjustment of the MA and/or KV according to patient size; and use of iterative reconstruction technique. CTDIvol = 60.5 mGy DLP = 1192.14 mGy-cm COMPARISON: None FINDINGS: There is no acute intracranial hemorrhage. No mass effect or midline shift. Scattered small parenchymal calcifications, may be seen with prior n eurocysticercosis infection Right posterior approach SLIP COVER MAKER shunt catheter extends into the lanterior horn of the left lateral ventricle with the tip near the level of the foramen of Monro. The ventricles and sulci are within normal limits in size for age. Basal cisterns are patent. There is lucency in the central aspect of the medulla extending to the spinal cord near the level of the foramen magnum, appears chronic, of uncertain etiology. The calvarium is unremarkable. Paranasal sinuses and mastoid air cells are clear. IMPRESSION: 1. No evidence of acute intracranial hemorrhage. 2. SLIP COVER MAKER shunt catheter as described above. Ventricles are within normal limits in size. Basal cisterns appear patent. 3. Focal lucency in the central aspect of the medulla and extending to the spinal cord, with chronic appearance, of uncertain etiology. MRI could be considered to further characterize if clinically indicated. ORDERING PHYSICIAN: ANT WILKES MD PROCEDURE(s): CXRP - CHEST PORTABLE REASON: sob ORDER NUMBER(s): [id number], ACCESSION NUMBER(s): [id number] EXAM: XY CHEST PORTABLE HISTORY: sob COMPARISON: None TECHNIQUE: Portable semi-erect AP view of the chest was performed. FINDINGS: Endotracheal tube is identified with its tip 2.2 cm above the bob. OG tube is identified with its tip in the duodenal bulb. Right IJ central line is identified with its tip in the lower SVC. PEG tube is present. There are infiltrates and/or effusions in the bilateral lung bases, left-grea [id number], partially obscuring the left hemidiaphragm. No pneumothorax. The heart is not enlarged. There are multiple old right rib fractures. IMPRESSION: 1. Mechanical ventilation with tubes and lines as above. 2. Bilateral lung base infiltrates and/or effusions, loer-[id number]-[id number]-right. SEPSIS Sepsis Screen Date sepsis recognized/suspect: Jun 10, 2025 Time Sepsis recognized/suspect: 2129 Recent Procedure: No On Antibiotic Therapy: No Respiratory Rate >20: No Heart Rate >90: No Temp<36 C (96.8 F) or >38.3 C: No SBP <90 or MAP <65 mmHG: No New Acute Mental Status Change: Yes Is the patient on CPAP, BIPAP,: Yes Physician Orders Sodium Chloride 0.9% (06/10/25 18:15) Azithromycin 500mg/ 250ml (Zithromax 50 (06/11/25 10:00) Pantoprazole (Protonix) (06/10/25 22:00) Acetaminophen Suppository (Tylenol Suppo (06/10/25 21:30) Levetiracetam 500 Mg/100ml (Levetiraceta (06/10/25 22:00) Glucose Blood (Accu-Chek Comfort Curve T (06/10/25 22:00) Insulin R (Human) (Insulin R) (06/10/25 22:00) Dextrose 50% Syringe (06/10/25 21:30) Allergies (06/10/25 21:18) Code Status (06/10/25 21:18) Sodium Chloride 0.9% (06/10/25 21:30) Oxygen Per Hour (06/10/25 21:18) Hydrocodone-Acet 5/325mg Tab (Pocola 5/32 (06/10/25 21:30) Ondansetron Hcl (Zofran) (06/10/25 21:30) Fall Risk Precautions In Place QSHIFT (06/10/25 21:18) Complete Blood Count (06/11/25 04:00) Comprehensive Metabolic Panel (06/11/25 04:00) Npo (Nothing By Mouth) Diet (06/11/25 Breakfast) Condition: Serious (06/10/25 21:18) Maintain Bed Rest (06/10/25 21:18) Sequential Compression Device (06/10/25 ) Admit (06/10/25 23:11) Nitroglycerin Sublingual (Ntrostat Subli (06/10/25 23:15) Morphine Sulfate Injection (06/10/25 23:15) Stat Ekg For Chest Pain (06/10/25 23:11) Notify Md Of Changes From Base (06/10/25 23:11) Electrical Mechanical Technician For 24 Hours (06/10/25 23:11) Emergency Dysrhythmia Protocol (06/10/25 23:11) Rhythm Strips Once Every Shift (06/10/25 23:11) Oxygen By Nasal Cannula (06/10/25 23:11) Vital Signs Date Time Temp Pulse Resp B/P (MAP) Pulse Ox O2 Delivery O2 Flow Rate FiO2 06/10/25 22:39 75 20 120/60 (80) 98 35 06/10/25 22:30 98.8 77 20 117/59 (78) 100 98.8 06/10/25 22:15 98.8 76 20 106/58 (74) 97 98.8 06/10/25 22:00 98.8 77 20 110/56 (74) 97 98.8 06/10/25 22:00 110/56 06/10/25 22:00 110/56 06/10/25 22:00 110/56 06/10/25 21:45 97.6 77 20 107/57 (74) 97 97.6 06/10/25 21:30 99.7 78 20 108/55 (72) 97 99.7 06/10/25 21:30 77 20 35 Mechanical Ventilator+ 100 100 06/10/25 21:15 100.1 79 20 111/56 (74) 97 100.1 06/10/25 21:00 100.6 79 20 108/56 (73) 97 100.6 06/10/25 21:00 108/56 06/10/25 21:00 108/56 06/10/25 21:00 108/56 06/10/25 20:45 100.8 80 20 109/56 (73) 98 100.8 06/10/25 20:30 101.1 80 20 103/51 (68) 99 101.1 06/10/25 20:15 101.1 83 20 93/46 (62) 97 101.1 06/10/25 20:03 84 20 94/48 (63) 98 40 06/10/25 20:00 91/48 06/10/25 20:00 91/48 06/10/25 20:00 91/48 06/10/25 20:00 101.1 83 20 91/48 (62) 98 101.1 06/10/25 19:45 101.3 85 20 91/42 (58) 98 101.3 06/10/25 19:30 101.1 85 20 104/51 (68) 99 101.1 06/10/25 19:15 101.2 85 20 107/57 (74) 98 101.2 06/10/25 19:10 87 20 107/57 (74) 97 45 06/10/25 19:05 101.2 86 20 107/56 (73) 98 101.2 06/10/25 19:00 87/47 06/10/25 19:00 87/47 06/10/25 19:00 87/47 06/10/25 19:00 101.2 86 20 87/47 (60) 96 101.2 06/10/25 18:45 101.1 92 20 90/45 (60) 94 101.1 06/10/25 18:30 100.8 93 20 94/53 (67) 95 100.8 06/10/25 18:15 100.8 90 20 109/59 (76) 98 100.8 06/10/25 18:02 91 06/10/25 18:00 100.8 92 20 108/58 (75) 98 100.8 06/10/25 18:00 108/58 06/10/25 18:00 108/58 06/10/25 18:00 108/58 06/10/25 17:45 100.8 92 20 113/57 (75) 97 100.8 06/10/25 17:30 100.8 93 22 106/61 (76) 97 100.8 06/10/25 17:15 100.8 91 21 102/60 (74) 97 100.8 06/10/25 17:00 100.8 91 20 96/50 (65) 97 100.8 06/10/25 17:00 96/50 06/10/25 17:00 96/50 06/10/25 17:00 96/50 06/10/25 16:54 110/62 06/10/25 16:45 100.9 93 20 105/58 (74) 98 100.9 06/10/25 16:30 105/58 06/10/25 16:30 100.8 95 21 105/58 (74) 98 100.8 06/10/25 16:25 98 20 92/51 (65) 97 50 06/10/25 16:24 88/40 06/10/25 16:15 100.4 99 20 100/56 (71) 98 100.4 06/10/25 16:00 100.1 98 20 101/57 (72) 98 100.1 06/10/25 16:00 101/57 06/10/25 15:54 112/91 06/10/25 15:45 99.3 97 20 112/91 (98) 98 99.3 06/10/25 15:30 99.3 97 20 114/54 (74) 98 99.3 06/10/25 15:30 114/54 06/10/25 15:15 99.0 93 20 107/58 (74) 98 99.0 06/10/25 15:15 107/58 Laboratory Tests Test 06/10/25 13:05 Lactic Acid Level 1.7 mmol/L (0.4-2.0) White Blood Count 10.0 10^3/uL (4.4-10.8) Medications Medications Dose Ordered Sig/Ezequiel Route Start Time Stop Time Status Last Admin Dose Admin Acetaminophen 1,000 mg ONCE ONCE IV 06/10/25 19:00 06/10/25 19:01 DC 06/10/25 19:12 1,000 MG Cefepime HCl 50 ml @ 12.5 mls/hr Q8HR IV 06/10/25 14:00 06/10/25 22:09 12.5 MLS/HR Diagnostic Test (Pha) 1 strip ACHS 06/10/25 22:00 06/10/25 22:08 1 STRIP Fentanyl Citrate 250 ml @ 2.5 mls/hr Q24H IV 06/10/25 14:45 06/10/25 14:54 2.5 MLS/HR Levetiracetam 100 ml @ 400 mls/hr BID IV 06/10/25 22:00 06/10/25 22:08 400 MLS/HR Midazolam HCl 50 ml @ 1 mls/hr Q24H IV 06/10/25 13:45 06/10/25 13:57 5 MLS/HR Norepinephrine Bitartrate 250 ml @ 3.75 mls/hr Q24H IV 06/10/25 13:15 06/10/25 13:15 3.75 MLS/HR Pantoprazole Sodium 40 mg BID IV 06/10/25 22:00 06/10/25 22:08 40 MG Sodium Chloride 1,000 ml @ 60 mls/hr [id number] IV 06/10/25 21:30 06/10/25 21:30 60 MLS/HR Sodium Chloride 1,000 ml @ 150 mls/hr [id number] ONCE IV 06/10/25 18:15 06/11/25 00:54 06/10/25 18:32 150 MLS/HR Sodium Chloride 1,000 ml @ 1,000 mls/hr Q1H ONCE IV 06/10/25 16:30 06/10/25 17:29 DC 06/10/25 16:35 1,000 MLS/HR Vancomycin HCl 250 ml @ 250 mls/hr ONCE ONCE IV 06/10/25 12:15 06/10/25 13:14 DC 06/10/25 12:15 250 MLS/HR Assessment/Plan Assessment/Plan Metabolic encephalopathy Sepsis, unspecified organism Pneumonia, unspecified organism Acute respiratory failure with hypoxia Diabetes mellitus with hyperglycemia Plan 1. Admit to intensive care unit 2. Breathing treatment 3. Pain control management 4. IV antibiotic management 5. Management of fluids and electrolytes 6. Consultation for pulmonology 7. Diagnostic test chest x-ray 8. DVT prophylaxis-on Lovenox 9. Repeat labs CBC, CMP in a.m. 10. Home medication reviewed and reconciled 11. Continue with current medical management 12. Treatment plan discussed with patient and RN. Patient verbalized understanding. Plan discussed with: Patient, Other (RN) My Orders Orders - DAVIN FULLER DNP Procedure Category Date Status Time Azithromycin 500mg/ PHA 06/11/25 In Process 250ml (Zithromax 50 10:00 Pantoprazole PHA 06/10/25 In Process (Protonix) 22:00 Acetaminophen PHA 06/10/25 In Process Suppository (Tylenol 21:30 Levetiracetam 500 PHA 06/10/25 In Process Mg/100ml (Levetiraceta 22:00 Glucose Blood PHA 06/10/25 In Process (Accu-Chek Comfort 22:00 Insulin R (Human) PHA 06/10/25 In Process (Insulin R) 22:00 Dextrose 50% Syringe PHA 06/10/25 In Process 21:30 Allergies ZARINA 06/10/25 In Process 21:18 Code Status CODE 06/10/25 Transmitted 21:18 Sodium Chloride 0.9% PHA 06/10/25 In Process 21:30 Oxygen Per Hour RT 06/10/25 Transmitted 21:18 Hydrocodone-Acet PHA 06/10/25 In Process 5/325mg Tab (Pocola 21:30 Ondansetron Hcl PHA 06/10/25 In Process (Zofran) 21:30 Fall Risk Precautions ZARINA 06/10/[address] 21:18 Complete Blood Count LAB 06/11/25 Verified 04:00 Comprehensive LAB 06/11/25 Verified Metabolic Panel 04:00 Npo (Nothing By DIET 06/11/25 Transmitted Mouth) Diet Breakfast Condition: Serious ZARINA 06/10/25 In Process 21:18 Maintain Bed Rest ZARINA 06/10/25 In Process 21:18 Sequential ZARINA 06/10/25 In Process Compression Device Admit ADMIT 06/10/25 Transmitted 23:11 Nitroglycerin [facility] 06/10/25 Transmitted Sublingual (Ntrostat 23:15 Morphine Sulfate PHA 06/10/25 Transmitted Injection 23:15 Stat Ekg For Chest [facility] 06/10/25 Transmitted Pain 23:11 Notify Md Of Changes [facility] 06/10/25 Transmitted From Base 23:11 Electrical Mechanical Technician For [facility] 06/10/25 Transmitted 24 Hours 23:11 Emergency Dysrhythmia [facility] 06/10/25 Transmitted Protocol 23:11 Rhythm Strips Once [facility] 06/10/25 Transmitted Every Shift 23:11 Oxygen By Nasal RT 06/10/25 Transmitted Cannula 23:11 Problem List: (1) Metabolic encephalopathy (2) Sepsis, unspecified organism (3) Pneumonia, unspecified organism (4) Acute respiratory failure with hypoxia (5) Diabetes mellitus with hyperglycemia Date of Service: Jun 10, 2025 Billing Provider: DAVIN FULLER DNP Common Visit Codes: [id number] INP/OBS CARE (HIGH) DAVIN FULLER DNP Jun 10, 2025 23:13
[2025-06-10] MEDS ORDERED: MORPHINE SULFATE INJ 2 MG/ml SYRG IV PRN (23:15)
[2025-06-10] MEDS ORDERED: NITROGLYCERIN 0.4 MG SL TAB SL PRN (23:15)
[2025-06-11] VITALS (107 sets, daily range): BP systolic 81–135; BP diastolic 45–69; PULSE 61–79; RESP 19–22; TEMP 97.9–100.1; O2SAT 94–100
[2025-06-11] MEDS ORDERED: NITROGLYCERIN 0.4 MG SL TAB SL PRN (00:15)
[2025-06-11] MEDS ORDERED: MORPHINE SULFATE INJ 2 MG/ml SYRG IV PRN (00:15)
[2025-06-11 05:41] LABS: Hematocrit 33.6 % (41.0-53.0); Hemoglobin 11.6 g/dL (13.5-17.5); Mean Corpuscular Hemoglobin 29.8 pg (28.0-32.0); Mean Corpuscular Volume 86.5 fL (80.0-100.0); Nucleated Red Blood Cells % 0.0 %
[2025-06-11 05:57] LABS: Alanine Aminotransferase 18 U/L (7-40); Albumin 3.8 g/dL (3.2-4.8); Alkaline Phosphatase 83 U/L (46-116); Anion Gap 9 (5-15); BUN/Creatinine Ratio 20.0 (10.0-20.0); Bilirubin, Total 1.2 mg/dL (0.2-1.0); Blood Urea Nitrogen 12 mg/dL (9-23); Sodium 138 mmol/L (136-145); Total Protein 6.4 g/dL (5.7-8.2)
[2025-06-11 06:00] LABS: Calcium 10.9 mg/dL (8.7-10.4); Carbon Dioxide 33 mmol/L (20-31); Chloride 96 mmol/L (98-107); Glucose 166 mg/dL (74-106); Potassium 3.1 mmol/L (3.5-5.1)
[2025-06-11 07:30] LABS: Base Excess 8.3 mmol/L (-2.0-3.0)
[2025-06-11] MEDS: ENOXAPARIN SOD 40 MG/0.4 ML SYRINGE SC SCH (07:56)
[2025-06-11] MEDS: AZITHROMYCIN 500MG/ 250ML 250 ML IV SCH (07:56)
[2025-06-11] MEDS: POTASSIUM EFFERVESENT TAB 25 MEQ PO ONE (08:00)
[2025-06-11 10:23] LABS: Base Excess 11.5 mmol/L (-2.0-3.0)
[2025-06-11] MEDS ORDERED: DEXTROSE (50%) 50ML SYRG IV PRN ×3 (13:15→17:30)
--- NOTE | 2025-06-11 14:52 | DVHPN2 ---
Progress Note Date Seen: Jun 11, 2025 Medical Necessity Reason Pt with a Central, PICC or Fol: Yes The following are medically ne: Central Line, Mock Catheter Reason for mock catheter: Strict I&O Subjective Patient reports: No new complaints Review of Systems: HEENT:Normal, CVS:Normal, RESPIRATORY:Normal, GI:Normal, :Normal, MSK:Normal, NEURO:Normal Objective vital signs Vital Sign Date Time Temp Pulse Resp B/P (MAP) Pulse Ox O2 Delivery O2 Flow Rate FiO2 06/11/25 14:30 98.4 65 21 102/53 (69) 99 209.1 06/11/25 14:00 Mechanical Ventilator+ 30 30 Total Intake and Output 06/10/25 06/10/25 06/11/25 15:00 23:00 07:00 Intake Total 266.25 ml 2341.25 ml 814.375 ml Output Total 1100 ml Balance 266.25 ml 2341.25 ml -285.625 ml medications Current Medications Medications Dose Ordered Sig/Ezequiel Route Start Time Stop Time Status Last Admin Dose Admin Cefepime HCl 50 ml @ 12.5 mls/hr Q8HR IV 06/10/25 14:00 06/11/25 14:44 12.5 MLS/HR Norepinephrine Bitartrate 250 ml @ 3.75 mls/hr Q24H IV 06/10/25 13:15 06/11/25 10:01 13.125 MLS/HR Midazolam HCl 50 ml @ 1 mls/hr Q24H IV 06/10/25 13:45 06/11/25 12:39 10 MLS/HR Fentanyl Citrate 250 ml @ 2.5 mls/hr Q24H IV 06/10/25 14:45 06/10/25 14:54 2.5 MLS/HR Pantoprazole Sodium 40 mg BID IV 06/10/25 22:00 06/11/25 07:56 40 MG Acetaminophen [address] 06/10/25 21:30 Levetiracetam 100 ml @ 400 mls/hr BID IV 06/10/25 22:00 06/10/25 22:08 400 MLS/HR Acetaminophen/ Hydrocodone Bitart 1 tab Q4HP PRN PO 06/10/25 21:30 Ondansetron HCl 4 mg Q4HP PRN IV 06/10/25 21:30 Nitroglycerin 0.4 mg Q5MINP PRN SL 06/10/25 23:15 Cancel Morphine Sulfate 2 mg Q30M PRN IV 06/10/25 23:15 Cancel Nitroglycerin 0.4 mg Q5MINP PRN SL 06/11/25 00:15 Morphine Sulfate 2 mg Q30M PRN IV 06/11/25 00:15 Enoxaparin Sodium 40 mg DAILY SC 06/11/25 10:00 06/11/25 07:56 40 MG Diagnostic Test (Pha) 1 strip IQ4HR 06/11/25 16:00 Cancel Insulin Human Regular IQ4HR SC 06/11/25 16:00 Cancel Dextrose 50 ml UD PRN IV 06/11/25 13:15 Cancel Diagnostic Test (Pha) 1 strip ACHS 06/11/25 17:00 Insulin Human Regular HS SC 06/11/25 22:00 Insulin Human Regular AC SC 06/11/25 17:00 Dextrose 50 ml UD PRN IV 06/11/25 14:15 Enteral Nutritional Formula 1,000 ml 40ML/HR GT 06/11/25 14:45 Examination: GENERAL:Normal, HEENT:Normal, NECK:Normal, LUNGS:Normal, LUNGS:Abnormal (intubated), CVS:Normal, ABDOMEN:Normal, ABDOMEN:Abnormal (PEG TUBE), MSK:Normal, SKIN:Normal, NEURO:Normal, NEURO:Abnormal (sedated), :Normal laboratory and microbiology Laboratory Tests 06/11/25 04:40 Test 06/11/25 04:40 Range/Units Serum Glucose 166 H 74-106 mg/dL Microbiology Date/Time Source Procedure Growth Status 06/11/25 01:00 Nose MRSA Screen - Final Complete 06/10/25 13:05 Blood Blood Culture - Preliminary NO GROWTH AFTER 24 HOURS OF INCUBATION. 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 * History of neurocysticercosis. * COPD with exacerbation. * Chronic diastolic heart failure. * Bedbound status with functional paraplegia. * History of PEG feedings. long dw family- reviewed labs and plan of care Plan discussed with: Spouse, Daughter My Orders My Orders Orders - GABRIELLE BOLAÑOS MD Procedure Category Date Status Time Nutritional PHA 06/11/25 In Process Supplements (Jevity 14:45 Basic Metabolic Panel LAB 06/12/25 Verified 06:00 Complete Blood Count LAB 06/12/25 Verified 06:00 Chest Portable XY 06/12/25 Logged 06:00 Abg W/ Co-Ox RT 06/12/25 Logged 06:00 Critical Care Time (mins): 81 (critical care time excluding procedures is 81 mins) Sepsis reassessment post fluid Is the fluid challenge complet: No (PROVIDER ORDERED NO FLUID CHALLENGE DUE TO RISK OF FLUID OVERLOAD) Date of Reassessment: Jun 10, 2025 Time of Reassessment: 183 Blood Culture Time: 1215 Time Antibiotics Given: 1215 Systolic BP: 94 Diastolic BP: 51 Blood Pressure Mean: 65 Respiration: 20 Respiratory Effort: Non-Labored, ET Tube Respiratory Pattern: Regular Oxygen Saturation: 95 Pulse Rate: 93 Pulse Location: Radial Pulse Strength: Normal Pulse Assessment Method: Fence Post Cutter Pulse Rhythm: Regular Capillary Refill: < 3 seconds Heart Sounds: S1 & S2 Breath sounds: Diminished Skin Moisture: Dry Skin Tugor: WNL Skin Color: WNL Date of Service: Jun 11, 2025 Billing Provider: GABRIELLE BOLAÑOS MD Common Visit Codes: 54179-[id number] CARE 30-74 MIN, 73875-[id number] CARE-EACH +30MIN GABRIELLE BOLAÑOS MD Jun 11, 2025 14:52
[2025-06-11] MEDS ORDERED: ACCU-CHEK COMFORT CURVE STRIP VI SCH (16:00)
[2025-06-11] MEDS ORDERED: InsuLIN REG 1unit/0.01ml Soln (100units/ml) SC SCH ×2 (16:00→22:00)
[2025-06-11] MEDS: InsuLIN REG 1unit/0.01ml Soln (100units/ml) SC SCH ×2 (17:00→21:42)
[2025-06-11] MEDS: ACCU-CHEK COMFORT CURVE STRIP VI SCH ×2 (17:03→21:39)
[2025-06-12] VITALS (106 sets, daily range): BP systolic 81–139; BP diastolic 31–73; PULSE 55–144; RESP 16–39; TEMP 97.3–101.7; O2SAT 95–100
--- NOTE | 2025-06-12 05:11 | DVH ---
CHEST RADIOGRAPH Indication: RESP FAILURE Technique: Single frontal view of the chest was obtained COMPARISON: XY CHEST PORTABLE on DOS: 05/27/25, XY CHEST PORTABLE on DOS: 05/26/25, XY CHEST PORTABLE o n DOS: 05/25/25, XY CHEST PORTABLE on DOS: 05/24/25, XY CHEST PORTABLE on DOS: 05/23/25 FINDINGS: Lines and Tubes: Endotracheal tube, enteric catheter and right central venous catheter in satisfactor y position. Lungs: Left lower lobe airspace disease. Pleura: No effusion. No pneumothorax. Cardiomediastinal contours: Unremarkable Bones: Unremarkable IMPRESSION: Lines and tubes in satisfactory position. No significant interval change.
[2025-06-12 05:17] LABS: Hematocrit 32.4 % (41.0-53.0); Hemoglobin 10.9 g/dL (13.5-17.5); Mean Corpuscular Hemoglobin 29.5 pg (28.0-32.0); Mean Corpuscular Volume 87.4 fL (80.0-100.0); Nucleated Red Blood Cells % 0.1 %
[2025-06-12 05:22] LABS: Chloride 100 mmol/L (98-107); Sodium 140 mmol/L (136-145)
[2025-06-12 05:23] LABS: Anion Gap 9 (5-15); Carbon Dioxide 31 mmol/L (20-31)
[2025-06-12 05:25] LABS: Calcium 10.5 mg/dL (8.7-10.4); Potassium 3.3 mmol/L (3.5-5.1)
[2025-06-12 05:28] LABS: BUN/Creatinine Ratio 21.1 (10.0-20.0); Blood Urea Nitrogen 12 mg/dL (9-23)
[2025-06-12 05:37] LABS: Glucose 109 mg/dL (74-106)
[2025-06-12] MEDS: POTASSIUM CHL 20MEQ/100ML 100 ML IV ONE ×2 (06:03→06:07)
[2025-06-12 06:45] LABS: Base Excess 5.6 mmol/L (-2.0-3.0)
[2025-06-12] MEDS: Jevity 1.2 Cal/Fiber 1 Liter GT SCH (08:00)
--- NOTE | 2025-06-12 10:38 | ECG ---
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
[2025-06-12] MEDS: DEXMEDETOMIDINE HCL IN D5W 100 ML IV SCH (11:45)
--- NOTE | 2025-06-12 11:49 | DVHPN2 ---
Progress Note Date Seen: Jun 12, 2025 Medical Necessity Reason Pt with a Central, PICC or Fol: Yes The following are medically ne: Central Line, Mock Catheter Reason for mock catheter: Strict I&O Subjective Patient reports: No new complaints Review of Systems: HEENT:Normal, CVS:Normal, RESPIRATORY:Normal, GI:Normal, :Normal, MSK:Normal, NEURO:Normal Objective vital signs Vital Sign Date Time Temp Pulse Resp B/P (MAP) Pulse Ox O2 Delivery O2 Flow Rate FiO2 06/12/25 10:45 97.3 58 20 117/62 (80) 100 207.1 06/12/25 10:19 30 06/12/25 10:00 Mechanical Ventilator+ Total Intake and Output 06/11/25 06/11/25 06/12/25 14:59 22:59 06:59 Intake Total 1249.375 ml 988.125 ml 224.375 ml Output Total 650 ml 350 ml Balance 1249.375 ml 338.125 ml -125.625 ml medications Current Medications Medications Dose Ordered Sig/Ezequiel Route Start Time Stop Time Status Last Admin Dose Admin Cefepime HCl 50 ml @ 12.5 mls/hr Q8HR IV 06/10/25 14:00 06/12/25 05:05 12.5 MLS/HR Norepinephrine Bitartrate 250 ml @ 3.75 mls/hr Q24H IV 06/10/25 13:15 06/12/25 02:44 9.375 MLS/HR Midazolam HCl 50 ml @ 1 mls/hr Q24H IV 06/10/25 13:45 06/12/25 06:34 5 MLS/HR Fentanyl Citrate 250 ml @ 2.5 mls/hr Q24H IV 06/10/25 14:45 06/10/25 14:54 2.5 MLS/HR Pantoprazole Sodium 40 mg BID IV 06/10/25 22:00 06/12/25 09:39 40 MG Acetaminophen 650 mg Q6HP PRN MI 06/10/25 21:30 Levetiracetam 100 ml @ 400 mls/hr BID IV 06/10/25 22:00 06/12/25 09:45 400 MLS/HR Acetaminophen/ Hydrocodone Bitart 1 tab Q4HP PRN PO 06/10/25 21:30 Ondansetron HCl 4 mg Q4HP PRN IV 06/10/25 21:30 Nitroglycerin 0.4 mg Q5MINP PRN SL 06/10/25 23:15 Cancel Morphine Sulfate 2 mg Q30M PRN IV 06/10/25 23:15 Cancel Nitroglycerin 0.4 mg Q5MINP PRN SL 06/11/25 00:15 Morphine Sulfate 2 mg Q30M PRN IV 06/11/25 00:15 Enoxaparin Sodium 40 mg DAILY SC 06/11/25 10:00 06/12/25 09:39 40 MG Diagnostic Test (Pha) 1 strip IQ4HR 06/11/25 16:00 Cancel Insulin Human Regular IQ4HR SC 06/11/25 16:00 Cancel Dextrose 50 ml UD PRN IV 06/11/25 13:15 Cancel Insulin Human Regular HS SC 06/11/25 22:00 Cancel Dextrose 50 ml UD PRN IV 06/11/25 14:15 Cancel Enteral Nutritional Formula 1,000 ml 40ML/HR GT 06/11/25 14:45 06/12/25 08:00 1,000 ML Diagnostic Test (Pha) 1 strip ACHS 06/11/25 22:00 06/12/25 06:04 1 STRIP Insulin Human Regular ACHS SC 06/11/25 22:00 06/11/25 21:42 2 UNITS Dextrose 50 ml UD PRN IV 06/11/25 17:30 Examination: GENERAL:Normal, HEENT:Normal, NECK:Normal, LUNGS:Normal, LUNGS:Abnormal (intubated), CVS:Normal, ABDOMEN:Normal, ABDOMEN:Abnormal (peg tube), MSK:Normal, SKIN:Normal, NEURO:Normal, :Normal laboratory and microbiology Laboratory Tests 06/12/25 04:40 Test 06/12/25 04:40 Range/Units Serum Glucose 109 H 74-106 mg/dL Microbiology Date/Time Source Procedure Growth Status 06/11/25 01:00 Nose MRSA Screen - Final Complete 06/10/25 13:05 Blood Blood Culture - Preliminary NO GROWTH AFTER 24 HOURS OF INCUBATION. Resulted 06/10/25 12:00 Sputum Gram Stain - Final Resulted 06/10/25 12:00 Sputum Respiratory Culture - Preliminary Resulted Problem List/Assessment/Plan Problem List/Assessment/Plan * acute resp failure: cont acv, cpap trial * septic shock with pneumonia ?aspiration: iv cefepime * BPH * Diabetes mellitus: ssi * History of seizure disorder : cont meds * Previous FISH ICER shunt. * History of neurocysticercosis. * COPD with exacerbation. * Chronic diastolic heart failure. * Bedbound status with functional paraplegia. * History of PEG feedings. seymour alas family- reviewed labs and plan of care Plan discussed with: Spouse My Orders My Orders Orders - GABRIELLE BOLAÑOS MD Procedure Category Date Status Time Nutritional PHA 06/11/25 In Process Supplements (Jevity 14:45 Chest Portable XY 06/12/25 Resulted 06:00 Abg W/ Co-Ox RT 06/12/25 Logged 06:00 Glucose Blood PHA 06/11/25 In Process (Accu-Chek Comfort 22:00 Insulin R (Human) PHA 06/11/25 In Process (Insulin R) 22:00 Dextrose 50% Syringe PHA 06/11/25 In Process 17:30 Dietary Evaluation Review Comments: Nutrition Recommendation: 1) TF Jevity 1.2Cal @ 45ml/hr x 24hr (goal) along with Pro-stat 1 pk daily. Start @ 20ml/hr, increase 10ml/hr Q4H until goal is reached. TF @ goal volume along with Pro-stat provide 1396 kcal (100% energy needs), 75 gm protein (100% protein needs), 872 ml free water. 2) Water flush 130ml Q6H if allowed, adjust PRN 3) TPN if NPO >7 days 4) Monitor NPO status, lab values, wt trend, I/O Expected Outcomes/Goals: To meet >75% estimated needs Lab values to improve Fu 2-3 days Critical Care Time (mins): 62 (critical care time excluding procedures is 62 mins) Sepsis reassessment post fluid Is the fluid challenge complet: No (PROVIDER ORDERED NO FLUID CHALLENGE DUE TO RISK OF FLUID OVERLOAD) Date of Reassessment: Jun 10, 2025 Time of Reassessment: 183 Blood Culture Time: 1215 Time Antibiotics Given: 1215 Systolic BP: 94 Diastolic BP: 51 Blood Pressure Mean: 65 Respiration: 20 Respiratory Effort: Non-Labored, ET Tube Respiratory Pattern: Regular Oxygen Saturation: 95 Pulse Rate: 93 Pulse Location: Radial Pulse Strength: Normal Pulse Assessment Method: Outsole Cementer Machine Pulse Rhythm: Regular Capillary Refill: < 3 seconds Heart Sounds: S1 & S2 Breath sounds: Diminished Skin Moisture: Dry Skin Tugor: WNL Skin Color: WNL Date of Service: Jun 12, 2025 Billing Provider: GABRIELLE BOLAÑOS MD Common Visit Codes: [id number] CARE 30-74 MIN GABRIELLE BOLAÑOS MD Jun 12, 2025 11:49
[2025-06-12] MEDS: IPRATROPIUM BROM 0.5 MG/2.5ML INH SOL NEB SCH (12:55)
[2025-06-12] MEDS: ACETYLCYSTEINE 20%(200MG/ML) SOL 4ML NEB SCH (12:55)
[2025-06-12] MEDS: ALBUTEROL SULF 2.5 MG/0.5ML(0.5%) NEB SOLN NEB SCH (12:56)
[2025-06-12] MEDS: ETOMIDATE (2MG/ML) 20ML VIAL IV ONE (16:34)
[2025-06-12] MEDS: ROCURONIUM 10MG/ML 10ML VIAL IV ONE (16:35)
[2025-06-12] MEDS: SODIUM CHLORIDE 0.9% 1,000 ML IV SCH (18:30)
[2025-06-12] MEDS: ACETAMINOPHEN 650 MG RECT SUPP PR PRN (18:53)
[2025-06-13] VITALS (106 sets, daily range): BP systolic 83–136; BP diastolic 21–77; PULSE 85–116; RESP 19–34; TEMP 97.3–100; O2SAT 94–100
[2025-06-13 05:09] LABS: Hematocrit 33.7 % (41.0-53.0); Hemoglobin 11.3 g/dL (13.5-17.5); Mean Corpuscular Hemoglobin 29.5 pg (28.0-32.0); Mean Corpuscular Volume 87.9 fL (80.0-100.0); Nucleated Red Blood Cells % 0.0 %
[2025-06-13 05:18] LABS: Chloride 103 mmol/L (98-107); Potassium 3.8 mmol/L (3.5-5.1); Sodium 142 mmol/L (136-145)
[2025-06-13 05:19] LABS: Anion Gap 9 (5-15); Carbon Dioxide 30 mmol/L (20-31)
[2025-06-13 05:20] LABS: Calcium 10.1 mg/dL (8.7-10.4)
[2025-06-13 05:25] LABS: BUN/Creatinine Ratio 21.2 (10.0-20.0); Blood Urea Nitrogen 11 mg/dL (9-23); Glucose 119 mg/dL (74-106)
--- NOTE | 2025-06-13 05:48 | DVH ---
CHEST RADIOGRAPH Indication: RESP FAILURE Technique: 1 view Comparison: XY CHEST PORTABLE on DOS: 06/12/25, XY CHEST PORTABLE on DOS: 05/27/25, XY CHEST PORTABLE o n DOS: 05/26/25, XY CHEST PORTABLE on DOS: 05/25/25, XY CHEST PORTABLE on DOS: 05/24/25 FINDINGS: Lines and Tubes: Unchanged endotracheal tube, enteric tube, and right IJ catheter. Lungs/Pleura: No focal consolidation, pleural effusion or pneumothorax. Improved aeration of the left lung base with mild residual retrocardiac consolidation and small pleural effusion. Persistent bilat eral infrahilar interstitial opacities. Cardiomediastinum: Unchanged. Other: Unchanged osseous structures. IMPRESSION: 1. Improved aeration of the left lung base with mild residual airspace disease and small pleural effu santi. No other significant change from the previous study. Stable support devices.
[2025-06-13 06:56] LABS: Base Excess 2.3 mmol/L (-2.0-3.0)
[2025-06-13] MEDS: DEXMEDETOMIDINE HCL IN D5W 100 ML IV SCH (08:00)
[2025-06-13] MEDS ORDERED: VANCOMYCIN PER PHARMACY 0 MG IV SCH (13:15)
--- NOTE | 2025-06-13 13:27 | DVHPN2 ---
Progress Note Date Seen: Jun 13, 2025 Medical Necessity Reason Pt with a Central, PICC or Fol: Yes The following are medically ne: Central Line, Mock Catheter Reason for mock catheter: Strict I&O Subjective Patient reports: No new complaints Review of Systems: HEENT:Normal, CVS:Normal, RESPIRATORY:Normal, GI:Normal, :Normal, MSK:Normal, NEURO:Normal Objective vital signs Vital Sign Date Time Temp Pulse Resp B/P (MAP) Pulse Ox O2 Delivery O2 Flow Rate FiO2 06/13/25 12:00 99 23 124/68 (86) 99 30 06/13/25 12:00 99.0 210.2 06/13/25 12:00 Mechanical Ventilator+ Total Intake and Output 06/12/25 06/12/25 06/13/25 15:00 23:00 07:00 Intake Total 272.500 ml 1222.125 ml 511.125 ml Output Total 650 ml 750 ml Balance 272.500 ml 572.125 ml -238.875 ml medications Current Medications Medications Dose Ordered Sig/Ezequiel Route Start Time Stop Time Status Last Admin Dose Admin Norepinephrine Bitartrate 250 ml @ 3.75 mls/hr Q24H IV 06/10/25 13:15 06/13/25 00:25 11.25 MLS/HR Midazolam HCl 50 ml @ 1 mls/hr Q24H IV 06/10/25 13:45 06/13/25 06:47 2 MLS/HR Fentanyl Citrate 250 ml @ 2.5 mls/hr Q24H IV 06/10/25 14:45 06/13/25 06:03 5 MLS/HR Pantoprazole Sodium 40 mg BID IV 06/10/25 22:00 06/13/25 09:31 40 MG Acetaminophen 650 mg Q6HP PRN NV 06/10/25 21:30 06/12/25 18:53 650 MG Levetiracetam 100 ml @ 400 mls/hr BID IV 06/10/25 22:00 06/13/25 10:01 400 MLS/HR Ondansetron HCl 4 mg Q4HP PRN IV 06/10/25 21:30 Nitroglycerin 0.4 mg Q5MINP PRN SL 06/10/25 23:15 Cancel Morphine Sulfate 2 mg Q30M PRN IV 06/10/25 23:15 Cancel Nitroglycerin 0.4 mg Q5MINP PRN SL 06/11/25 00:15 Morphine Sulfate 2 mg Q30M PRN IV 06/11/25 00:15 Enoxaparin Sodium 40 mg DAILY SC 06/11/25 10:00 06/13/25 09:31 40 MG Diagnostic Test (Pha) 1 strip IQ4HR 06/11/25 16:00 Cancel Insulin Human Regular IQ4HR SC 06/11/25 16:00 Cancel Dextrose 50 ml UD PRN IV 06/11/25 13:15 Cancel Insulin Human Regular HS SC 06/11/25 22:00 Cancel Dextrose 50 ml UD PRN IV 06/11/25 14:15 Cancel Enteral Nutritional Formula 1,000 ml 40ML/HR GT 06/11/25 14:45 06/12/25 08:00 1,000 ML Diagnostic Test (Pha) 1 strip ACHS 06/11/25 22:00 06/13/25 11:28 1 STRIP Insulin Human Regular ACHS SC 06/11/25 22:00 06/12/25 22:14 2 UNITS Dextrose 50 ml UD PRN IV 06/11/25 17:30 Albuterol 2.5 mg Q6HR NEB 06/12/25 12:00 06/13/25 11:54 2.5 MG Ipratropium [place] 0.5 mg Q6HR NEB 06/12/25 12:00 06/13/25 11:54 0.5 MG Acetylcysteine 200 mg Q6HR NEB 06/12/25 12:00 06/13/25 11:55 200 MG Sodium Chloride 1,000 ml @ 60 mls/hr [id number] IV 06/12/25 16:45 06/13/25 10:02 60 MLS/HR Meropenem 50 ml @ 17 mls/hr Q8HR IV 06/13/25 14:00 UNV Vancomycin HCl 0 ml @ 0 mls/hr UD IV 06/13/25 13:15 UNV Examination: GENERAL:Normal, HEENT:Normal, NECK:Normal, LUNGS:Normal, LUNGS:Abnormal (intubated), CVS:Normal, ABDOMEN:Normal, MSK:Normal, SKIN:Normal, NEURO:Normal, :Normal laboratory and microbiology Laboratory Tests 06/13/25 04:35 Test 06/13/25 04:35 Range/Units Serum Glucose 119 H 74-106 mg/dL Microbiology Date/Time Source Procedure Growth Status 06/11/25 01:00 Nose MRSA Screen - Final Complete 06/10/25 13:05 Blood Blood Culture - Preliminary NO GROWTH AFTER 72 HOURS OF INCUBATION. 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 * History of neurocysticercosis. * COPD with exacerbation. * Chronic diastolic heart failure. * Bedbound status with functional paraplegia. * History of PEG feedings. long evette family- reviewed labs and plan of care Plan discussed with: Spouse, Daughter My Orders My Orders Orders - GABRIELLE BOLAÑOS MD Procedure Category Date Status Time Sodium Chloride 0.9% PHA 06/12/25 In Process 16:45 Meropenem 1gm Ivpb PHA 06/13/25 Logged (Merrem 1gm/ Ns) 13:15 Meropenem 1gm Ivpb PHA 06/13/25 Logged (Merrem 1gm/ Ns) 14:00 Vancomycin Per PHA 06/13/25 Logged Pharmacy 13:15 Cpap Trial For Am ORDERS 06/13/25 Verified 13:22 Precedex Drip Rass -1 PHA 06/13/25 Verified 13:30 Basic Metabolic Panel LAB 06/14/25 Verified 06:00 Complete Blood Count LAB 06/14/25 Verified 06:00 Chest Portable XY 06/14/25 Verified 06:00 Abg W/ Co-Ox RT 06/14/25 Verified 06:00 Dietary Evaluation Review Comments: Nutrition Recommendation: 1) TF Jevity 1.2Cal @ 45ml/hr x 24hr (goal) along with Pro-stat 1 pk daily. Start @ 20ml/hr, increase 10ml/hr Q4H until goal is reached. TF @ goal volume along with Pro-stat provide 1396 kcal (100% energy needs), 75 gm protein (100% protein needs), 872 ml free water. 2) Water flush 130ml Q6H if allowed, adjust PRN 3) TPN if NPO >7 days 4) Monitor NPO status, lab values, wt trend, I/O Expected Outcomes/Goals: To meet >75% estimated needs Lab values to improve Fu 2-3 days Critical Care Time (mins): 81 (critical care time including procedures is 81 mins) Sepsis reassessment post fluid Is the fluid challenge complet: No (PROVIDER ORDERED NO FLUID CHALLENGE DUE TO RISK OF FLUID OVERLOAD) Date of Reassessment: Jun 10, 2025 Time of Reassessment: 1829 Blood Culture Time: 1215 Time Antibiotics Given: 1215 Systolic BP: 94 Diastolic BP: 51 Blood Pressure Mean: 65 Respiration: 20 Respiratory Effort: Non-Labored, ET Tube Respiratory Pattern: Regular Oxygen Saturation: 95 Pulse Rate: 93 Pulse Location: Radial Pulse Strength: Normal Pulse Assessment Method: Metal Cans Supervisor Pulse Rhythm: Regular Capillary Refill: < 3 seconds Heart Sounds: S1 & S2 Breath sounds: Diminished Skin Moisture: Dry Skin Tugor: WNL Skin Color: WNL Date of Service: Jun 13, 2025 Billing Provider: GABRIELLE BOLAÑOS MD Common Visit Codes: [id number] CARE 30-74 MIN, 33335-[id number] CARE-EACH +30MIN GABRIELLE BOLAÑOS MD Jun 13, 2025 13:27
[2025-06-13] MEDS: MEROPENEM 1GM IVPB 50 ML IV SCH (14:00)
[2025-06-13] MEDS ORDERED: MEROPENEM 1GM IVPB 50 ML IV SCH (14:00)
[2025-06-13] MEDS: MEROPENEM 1GM IVPB 50 ML IV ONE (14:51)
[2025-06-13] MEDS: VANCOMYCIN 1GM/250ML KIT 250 ML IV SCH (15:56)
[2025-06-14] VITALS (111 sets, daily range): BP systolic 81–149; BP diastolic 41–87; PULSE 75–129; RESP 20–36; TEMP 86.9–100.8; O2SAT 97–100
[2025-06-14 05:09] LABS: Hematocrit 30.3 % (41.0-53.0); Hemoglobin 10.5 g/dL (13.5-17.5); Mean Corpuscular Hemoglobin 29.9 pg (28.0-32.0); Mean Corpuscular Volume 86.7 fL (80.0-100.0); Nucleated Red Blood Cells % 0.0 %
[2025-06-14 05:13] LABS: Chloride 103 mmol/L (98-107); Sodium 140 mmol/L (136-145)
[2025-06-14 05:14] LABS: Anion Gap 7 (5-15); Calcium 10.2 mg/dL (8.7-10.4); Carbon Dioxide 30 mmol/L (20-31)
[2025-06-14 05:19] LABS: BUN/Creatinine Ratio 15.6 (10.0-20.0)
[2025-06-14 05:20] LABS: Blood Urea Nitrogen 7 mg/dL (9-23); Glucose 110 mg/dL (74-106); Potassium 3.4 mmol/L (3.5-5.1)
--- NOTE | 2025-06-14 05:44 | DVH ---
CHEST RADIOGRAPH Indication: RESP FAILURE Technique: Single frontal view of the chest was obtained COMPARISON: XY CHEST PORTABLE on DOS: 06/13/25, XY CHEST PORTABLE on DOS: 06/12/25, XY CHEST PORTABLE o n DOS: 05/27/25, XY CHEST PORTABLE on DOS: 05/26/25, XY CHEST PORTABLE on DOS: 05/25/25 FINDINGS: Lines and Tubes: Endotracheal tube, enteric catheter and right central venous catheter in satisfactor y position Lungs: Congestion Pleura: No effusion. No pneumothorax. Cardiomediastinal contours: Unremarkable Bones: Unremarkable IMPRESSION: Lines and tubes in satisfactory position. No significant interval change.
[2025-06-14] MEDS: NOREPINEPHRINE 8 MG/250ML KIT 250 ML IV SCH (08:35)
[2025-06-14 08:45] LABS: Base Excess 1.3 mmol/L (-2.0-3.0)
[2025-06-14] MEDS: MAGNESIUM SULFATE 1GM/100ML 100 ML IV ONE (10:26)
[2025-06-14] MEDS: POTASSIUM CHL 20MEQ/100ML 100 ML IV ONE (11:29)
--- NOTE | 2025-06-14 17:54 | DVHPNRES ---
Progress Note Date Seen: Jun 15, 2025 Resident Creating Document: CATHIE LEE RESIDENT Medical Necessity Reason Pt with a Central, PICC or Fol: Yes The following are medically ne: Central Line, Mock Catheter Reason for mock catheter: Strict I&O Subjective Review of Systems A a 54-year-old male with past medical history of GERD, hyperlipidemia, seizures, COPD, ECMO SPECIALIST shunt, neurocysticercosis, paraplegia, PEG tube, and diabetes, who presented with shortness of breath. He developed septic shock secondary to pneumonia with sputum culture growing S. aureus, Acinetobacter baumannii and beta strep non-A. He is on vancomycin and meropenem. Also, his O2 saturations dropped to 6570% requiring intubation. Objective vital signs Vital Sign Date Time Temp Pulse Resp B/P (MAP) Pulse Ox O2 Delivery O2 Flow Rate FiO2 06/14/25 16:00 99.0 92 30 140/77 (98) 100 210.2 06/14/25 16:00 30 06/14/25 16:00 Mechanical Ventilator+ Total Intake and Output 06/13/25 06/13/25 06/14/25 15:00 23:00 07:00 Intake Total 551.865 ml 751.180 ml 579.310 ml Output Total 850 ml 1100 ml Balance 551.865 ml -98.820 ml -520.690 ml medications Current Medications Medications Dose Ordered Sig/Ezequiel Route Start Time Stop Time Status Last Admin Dose Admin Midazolam HCl 50 ml @ 1 mls/hr Q24H IV 06/10/25 13:45 06/14/25 16:38 1 MLS/HR Fentanyl Citrate 250 ml @ 2.5 mls/hr Q24H IV 06/10/25 14:45 06/13/25 06:03 5 MLS/HR Pantoprazole Sodium 40 mg BID IV 06/10/25 22:00 06/14/25 09:14 40 MG Levetiracetam 100 ml @ 400 mls/hr BID IV 06/10/25 22:00 06/14/25 09:14 400 MLS/HR Nitroglycerin 0.4 mg Q5MINP PRN SL 06/10/25 23:15 Cancel Morphine Sulfate 2 mg Q30M PRN IV 06/10/25 23:15 Cancel Nitroglycerin 0.4 mg Q5MINP PRN SL 06/11/25 00:15 Morphine Sulfate 2 mg Q30M PRN IV 06/11/25 00:15 Cancel Enoxaparin Sodium 40 mg DAILY SC 06/11/25 10:00 06/14/25 09:15 40 MG Diagnostic Test (Pha) 1 strip IQ4HR 06/11/25 16:00 Cancel Insulin Human Regular IQ4HR SC 06/11/25 16:00 Cancel Dextrose 50 ml UD PRN IV 06/11/25 13:15 Cancel Insulin Human Regular HS SC 06/11/25 22:00 Cancel Dextrose 50 ml UD PRN IV 06/11/25 14:15 Cancel Enteral Nutritional Formula 1,000 ml 40ML/HR GT 06/11/25 14:45 06/13/25 14:39 1,000 ML Diagnostic Test (Pha) 1 strip ACHS 06/11/25 22:00 06/14/25 17:43 1 STRIP Insulin Human Regular ACHS SC 06/11/25 22:00 06/14/25 12:31 2 UNITS Dextrose 50 ml UD PRN IV 06/11/25 17:30 Albuterol 2.5 mg Q6HR NEB 06/12/25 12:00 06/14/25 11:38 2.5 MG Ipratropium [place] 0.5 mg Q6HR NEB 06/12/25 12:00 06/14/25 11:38 0.5 MG Acetylcysteine 200 mg Q6HR NEB 06/12/25 12:00 06/14/25 11:38 200 MG Vancomycin HCl 0 ml @ 0 mls/hr UD IV 06/13/25 13:15 Meropenem 50 ml @ 17 mls/hr Q8HR IV 06/13/25 14:00 06/14/25 13:38 17 MLS/HR Vancomycin HCl 250 ml @ 200 mls/hr Q8H IV 06/13/25 15:00 06/14/25 23:00 06/14/25 15:36 200 MLS/HR Norepinephrine Bitartrate 250 ml @ 1.875 mls/ hr Q24H IV 06/14/25 07:45 06/14/25 08:35 11.25 MLS/HR Vancomycin HCl 250 ml @ 200 mls/hr Q12H IV 06/15/25 05:00 Examination General Appearance: Severe Distress, pupils reactive Neck: Full Range of Motion, Non-Tender, Normal, Normal Inspection Respiratory: Chest Non-Tender, Lungs Clear, No Accessory Muscle Use, No Respiratory Distress, Normal Breath Sounds Cardiovascular: No Edema, No JVD, No Murmur, No Gallop, Normal RIJ Gastrointestinal: No Organomegaly, Non Tender, No Pulsatile Mass, Normal Bowel Sounds, Soft, PEG tube functioning with black secretion? Extremities: No pedal edema laboratory and microbiology Laboratory Tests 06/14/25 04:44 Test 06/14/25 04:44 Range/Units Serum Glucose 110 H 74-106 mg/dL Microbiology Date/Time Source Procedure Growth Status 06/11/25 01:00 Nose MRSA Screen - Final Complete 06/10/25 13:05 Blood Blood Culture - Preliminary NO GROWTH AFTER 72 HOURS OF INCUBATION. Resulted 06/10/25 12:00 Sputum Gram Stain - Final Complete 06/10/25 12:00 Respiratory Culture - Final Staphylococcus aureus Acinetobacter baumannii Beta Strep Non-A, Non-B Complete Problem List/Assessment/Plan Problem List/Assessment/Plan Neurological #History of seizure disorder #Previous ECMO SPECIALIST shunt. #History of neurocysticercosis. patient is on precedex today levetiracetam IV BID Cardiovascular #Septic shock due to gram+/gram - pneumonia #Chronic diastolic heart failure. levophed 6 mcg: increased patient is having fevers hold on GDMT, until shock resolved Respiratory: #Acute respiratory failure due to: #Septic shock due to gram+/gram - pneumonia #Aspiration pneumonia #COPD exacerbation minimal vent settings staph aureus, acinobacter baumani and B strep Angelika isolated: on vancomycin and meropenem IV no plans of extubation during the weekend Case discussed with Dr Couch, patient will need bronchoscopy and tube exchange tomorrow GI: #s/p PEG tube #H/o GERD #Transaminitis (Hyperbilirubinemia) PEG tube showing black secretions, culture of the tube was sent Metabolic #DM type 2, hba1c 5,9 #Hypokalemia #Hypomagnesemia ISS K+ IV Mg2+ IV Renal adequate urine output Heme/onc #Anemia normocytic, normochromic monitor Musculoskeletal #Bedbound status with functional paraplegia Case discussed with Dr Xavier and his son at bedside, patient is full code DVT prophylaxis: enoxaparin PUD prophylaxis: protonix RIJ: 06/10/25 Mock catheter PEG tube Plan discussed with: Son (rn), Other My Orders My Orders Orders - CATHIE LEE RESIDENT Procedure Category Date Status Time Communication Order ORDERS 06/14/25 Transmitted 09:45 Routine Bacterial SOHAM 06/14/25 Logged Culture 14:58 Comprehensive LAB 06/15/25 Verified Metabolic Panel 04:00 Chest Xray 1 View XY 06/15/25 Logged 04:00 Abg W/ Co-Ox RT 06/15/25 Logged 04:00 Magnesium LAB 06/15/25 Verified 04:00 Dietary Evaluation Review Comments: Nutrition Recommendation: 1) TF Jevity 1.2Cal @ 45ml/hr x 24hr (goal) along with Pro-stat 1 pk daily. Start @ 20ml/hr, increase 10ml/hr Q4H until goal is reached. TF @ goal volume along with Pro-stat provide 1396 kcal (100% energy needs), 75 gm protein (100% protein needs), 872 ml free water. 2) Water flush 130ml Q6H if allowed, adjust PRN 3) TPN if NPO >7 days 4) Monitor NPO status, lab values, wt trend, I/O Expected Outcomes/Goals: To meet >75% estimated needs Lab values to improve Fu 2-3 days Sepsis reassessment post fluid Is the fluid challenge complet: No (PROVIDER ORDERED NO FLUID CHALLENGE DUE TO RISK OF FLUID OVERLOAD) Date of Reassessment: Jun 10, 2025 Time of Reassessment: 1830 Blood Culture Time: 1215 Time Antibiotics Given: 1215 Systolic BP: 94 Diastolic BP: 51 Blood Pressure Mean: 65 Respiration: 20 Respiratory Effort: Non-Labored, ET Tube Respiratory Pattern: Regular Oxygen Saturation: 95 Pulse Rate: 93 Pulse Location: Radial Pulse Strength: Normal Pulse Assessment Method: Oracle Reports Developer Pulse Rhythm: Regular Capillary Refill: < 3 seconds Heart Sounds: S1 & S2 Breath sounds: Diminished Skin Moisture: Dry Skin Tugor: WNL Skin Color: WNL Date of Service: Jul 16, 2025 Billing Provider: SUJEY XAVIER MD Common Visit Codes: [id number] CARE 30-74 MIN (crit care time spent 55 minutes) CATHIE LEE RESIDENT Jun 14, 2025 17:54 SUJEY XAVIER MD Jun 21, 2025 21:33
--- NOTE | 2025-06-14 23:27 | DVHPN2 ---
Progress Note - Dictate Date Seen: Jun 14, 2025 Medical Necessity Reason Pt with a Central, PICC or Fol: Yes The following are medically ne: Central Line, Mock Catheter Reason for mock catheter: Strict I&O Subjective Patient seen and examined at bedside. Sedated, intubated on mechanical ventilator. Overnight events reviewed. vital signs Vital Sign Date Time Temp Pulse Resp B/P (MAP) Pulse Ox O2 Delivery O2 Flow Rate FiO2 06/14/25 22:15 80 20 105/59 (74) 100 30 06/14/25 22:04 Mechanical Ventilator+ 06/14/25 22:00 97.3 207.1 Total Intake and Output 06/13/25 06/13/25 06/14/25 15:00 23:00 07:00 Intake Total 551.865 ml 751.180 ml 579.310 ml Output Total 850 ml 1100 ml Balance 551.865 ml -98.820 ml -520.690 ml medications Current Medications Medications Dose Ordered Sig/Ezequiel Route Start Time Stop Time Status Last Admin Dose Admin Midazolam HCl 50 ml @ 1 mls/hr Q24H IV 06/10/25 13:45 06/14/25 16:38 1 MLS/HR Fentanyl Citrate 250 ml @ 2.5 mls/hr Q24H IV 06/10/25 14:45 06/13/25 06:03 5 MLS/HR Pantoprazole Sodium 40 mg BID IV 06/10/25 22:00 06/14/25 21:25 40 MG Levetiracetam 100 ml @ 400 mls/hr BID IV 06/10/25 22:00 06/14/25 21:21 400 MLS/HR Nitroglycerin 0.4 mg Q5MINP PRN SL 06/10/25 23:15 Cancel Morphine Sulfate 2 mg Q30M PRN IV 06/10/25 23:15 Cancel Nitroglycerin 0.4 mg Q5MINP PRN SL 06/11/25 00:15 Morphine Sulfate 2 mg Q30M PRN IV 06/11/25 00:15 Cancel Enoxaparin Sodium 40 mg DAILY SC 06/11/25 10:00 06/14/25 09:15 40 MG Diagnostic Test (Pha) 1 strip IQ4HR 06/11/25 16:00 Cancel Insulin Human Regular IQ4HR SC 06/11/25 16:00 Cancel Dextrose 50 ml UD PRN IV 06/11/25 13:15 Cancel Insulin Human Regular HS SC 06/11/25 22:00 Cancel Dextrose 50 ml UD PRN IV 06/11/25 14:15 Cancel Enteral Nutritional Formula 1,000 ml 40ML/HR GT 06/11/25 14:45 06/13/25 14:39 1,000 ML Diagnostic Test (Pha) 1 strip ACHS 06/11/25 22:00 06/14/25 21:30 1 STRIP Insulin Human Regular ACHS SC 06/11/25 22:00 06/14/25 12:31 2 UNITS Dextrose 50 ml UD PRN IV 06/11/25 17:30 Albuterol 2.5 mg Q6HR NEB 06/12/25 12:00 06/14/25 18:36 2.5 MG Ipratropium [place] 0.5 mg Q6HR NEB 06/12/25 12:00 06/14/25 18:36 0.5 MG Acetylcysteine 200 mg Q6HR NEB 06/12/25 12:00 06/14/25 18:36 200 MG Vancomycin HCl 0 ml @ 0 mls/hr UD IV 06/13/25 13:15 Meropenem 50 ml @ 17 mls/hr Q8HR IV 06/13/25 14:00 06/14/25 21:30 17 MLS/HR Norepinephrine Bitartrate 250 ml @ 1.875 mls/ hr Q24H IV 06/14/25 07:45 06/14/25 08:35 11.25 MLS/HR Vancomycin HCl 250 ml @ 200 mls/hr Q12H IV 06/15/25 05:00 objective Gen.: Patient lying in bed in medical ICU. Sedated, intubated on mechanical ventilator. Head: Normocephalic, atraumatic. Eyes: PERRLA. Ears: Normal external anatomy. Throat: Endotracheal tube and orogastric tube in place. Neck: Supple, trachea midline. Chest: Transmitted breath sounds bilaterally. Decreased air entry bilaterally. No wheezing. Bibasilar crackles. Cardiovascular: Positive S1, positive S2. Regular rate and rhythm. Abdomen: Positive bowel sounds in all 4 quadrants. Soft, nontender, nondistended. : Mock in place. Normal external genitalia. Rectal: Deferred. Skin: Warm, dry. Intact. Extremities: 2+ radial pulses bilaterally. No lower extremity edema. Neuro: Sedated. Paraplegia. laboratory and microbiology Laboratory Tests 06/14/25 04:44 Test 06/14/25 04:44 Range/Units Serum Glucose 110 H 74-106 mg/dL Assessment/Plan Impression: Acute hypoxic respiratory failure On mechanical ventilator Septic shock with pneumonia, ?aspiration COPD with exacerbation. History of seizure disorder Chronic diastolic heart failure. Bedbound status with functional paraplegia. Plan: s/p intubation on mechanical ventilator. CXR image and report reviewed. Notable for pulmonary congestion. Devices in place. ABG reviewed, compensated. On AC mode; RR 20, VT 400, PEEP 5, FiO2 30% Titrate FIO2 to keep O2 saturation above 90%. VAP bundle. Daily ABG and CXR while intubated Sedate for vent synchrony Precedex drip. Off Fentanyl On pressors for hemodynamic support Levophed 6 mcg/min Titrate to keep mean arterial pressure greater than 65 mmHg. Continue bronchodilators. Continue antibiotics. Patient spiked fever F/u sputum cultures - Positive for Acinetobacter. Increased ET tube secretions noted. Recommend bronchoscopy with bronchoalveolar lavage to clear suspected mucous plugs. Recommend ET tube exchange due to Acinetobacter growth and recent fever. Antiepileptic with Keppra Monitor renal function Monitor electrolytes. Supplement as necessary. Monitor ins and outs. Potassium supplementation Monitor magnesium level Maintain euvolemia. GI/DVT prophylaxis. Prognosis: Poor given patient's multiple co-morbidities. Condition: Critical Rest of plan per hospitalist and other consultants. A total of 35 minutes of critical care time was spent reviewing the patient record, examining the patient, making a diagnostic and therapeutic plan, discussing this plan with the medical personnel, following up on diagnostic studies and following the patient for clinical stability excluding any and all procedures. At least 50% of this time was spent in direct, [id number] contact. Thank you Dr. Argueta for allowing me to participate in this patient's care. Further recommendations will depend on the patient's clinical course. Please do not hesitate to contact me if you have any questions or concerns. This medical document was created using an electronic medical record system with [employer] system. Although these documentations are being carefully reviewed, there may still be some phonetic and typographical changes. The errors are purely typographical, due to imperfection on the software program, and do not reflect any compromise in the patient's medical care. Dietary Evaluation Review Comments: Nutrition Recommendation: 1) TF Jevity 1.2Cal @ 45ml/hr x 24hr (goal) along with Pro-stat 1 pk daily. Start @ 20ml/hr, increase 10ml/hr Q4H until goal is reached. TF @ goal volume along with Pro-stat provide 1396 kcal (100% energy needs), 75 gm protein (100% protein needs), 872 ml free water. 2) Water flush 130ml Q6H if allowed, adjust PRN 3) TPN if NPO >7 days 4) Monitor NPO status, lab values, wt trend, I/O Expected Outcomes/Goals: To meet >75% estimated needs Lab values to improve Fu 2-3 days Plan discussed with: Other (ALEXANDER Carpenter) Critical Care Time(min): 35 Is the fluid challenge complet: No (PROVIDER ORDERED NO FLUID CHALLENGE DUE TO RISK OF FLUID OVERLOAD) Date of Reassessment: Jun 10, 2025 Time of Reassessment: 183 Blood Culture Time: 1215 Time Antibiotics Given: 1215 Systolic BP: 94 Diastolic BP: 51 Blood Pressure Mean: 65 Respiration: 20 Respiratory Effort: Non-Labored, ET Tube Respiratory Pattern: Regular Oxygen Saturation: 95 Pulse Rate: 93 Pulse Location: Radial Pulse Strength: Normal 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
[2025-06-15] VITALS (108 sets, daily range): BP systolic 85–137; BP diastolic 42–74; PULSE 75–110; RESP 19–30; TEMP 97.7–99.7; O2SAT 98–100
[2025-06-15] MEDS: VANCOMYCIN 1.25GM/250ML 250 ML IV SCH (04:59)
[2025-06-15 06:18] LABS: Base Excess -6.1 mmol/L (-2.0-3.0)
[2025-06-15 06:21] LABS: Alanine Aminotransferase 25 U/L (7-40); Alkaline Phosphatase 80 U/L (46-116); Anion Gap 11 (5-15); BUN/Creatinine Ratio 13.5 (10.0-20.0); Calcium 10.0 mg/dL (8.7-10.4); Carbon Dioxide 25 mmol/L (20-31); Chloride 104 mmol/L (98-107); Glucose 96 mg/dL (74-106); Magnesium 1.8 mg/dL (1.6-2.6); Sodium 140 mmol/L (136-145); Total Protein 6.4 g/dL (5.7-8.2)
[2025-06-15 06:22] LABS: Albumin 3.4 g/dL (3.2-4.8)
[2025-06-15 06:24] LABS: Hematocrit 30.3 % (41.0-53.0); Hemoglobin 10.3 g/dL (13.5-17.5); Mean Corpuscular Hemoglobin 29.9 pg (28.0-32.0); Mean Corpuscular Volume 87.8 fL (80.0-100.0); Nucleated Red Blood Cells % 0.0 %
[2025-06-15 06:31] LABS: Bilirubin, Total 0.2 mg/dL (0.2-1.0); Blood Urea Nitrogen 7 mg/dL (9-23); Potassium 3.2 mmol/L (3.5-5.1)
--- NOTE | 2025-06-15 06:42 | DVH ---
EXAM: XY CHEST XRAY 1 VIEW HISTORY: intubated COMPARISON: XY CHEST PORTABLE on DOS: 06/14/25, XY CHEST PORTABLE on DOS: 06/13/25, XY CHEST PORTABLE o n DOS: 06/12/25, XY CHEST PORTABLE on DOS: 05/27/25, XY CHEST PORTABLE on DOS: 05/26/25 TECHNIQUE: Portable AP view of the chest was performed. FINDINGS: Endotracheal tube is identified with its tip 2.7 cm above the bob. OG tube is present with its tip distal to the GE junction. Right IJ central line is present with its tip in the mid SVC. There is left lung base patchy infiltrate, similar to that seen previously. There is central peribronchial thi ckening. No pneumothorax. The heart is not enlarged. IMPRESSION: 1. Mechanical ventilation with tubes and lines as above. 2. Left basilar pneumonia. 3. Reactive airways disease.
[2025-06-15] MEDS: ROCURONIUM 10MG/ML 10ML VIAL IV ONE ×2 (07:30→08:02)
[2025-06-15] MEDS ORDERED: MAGNESIUM SULFATE 1GM/100ML 100 ML IV ONE (08:00)
[2025-06-15] MEDS: MAGNESIUM SULFATE 1GM/100ML 100 ML IV SCH (09:04)
--- NOTE | 2025-06-15 09:16 | DVHNC2 ---
Procedure - Procedure: Endotracheal Intubation INDICATION: Acute respiratory failure, accessory muscle usage, ET tube exchange Physician: Jesus Couch MD CONSENT: Emergent procedure. Implied. Time out time: 0740 am Patient medications and allergies reviewed. Patient identification and proposed procedure were verified prior to the procedure by the physician, and a nurse in the patient's room. The heart rate, respiratory rate, oxygen saturations, blood pressure, adequacy of pulmonary ventilation, and response to care were monitored throughout the procedure. The physical status of the patient was reassessed after the procedure. PROCEDURE SUMMARY: A time out was performed. My hands were washed immediately prior to the procedure. I wore a surgical cap, mask with protective eyewear, gown and gloves throughout the procedure. The patient was placed on a front desk monitor including continuous pulse oximetry. Cricoid pressure was maintained from time induction agent was given to time of cuff balloon inflation. Using a MAC 4 GlideoScope and a size 8.0 endotracheal tube with stylet, the patient was intubated on the 1 attempt. The stylet was removed and cuff balloon was inflated. Appropriate endotracheal tube position was confirmed by direct visualization of vocal cord passage, fogging of the tube, CO2 colorimetric indicator and symmetric breath sounds. The tube was secured at 23 cm at the lips. ET tube position confirmed via bronchoscopy. CPT Code: 69825 JESUS COUCH MD Jun 15, 2025 09:16
--- NOTE | 2025-06-15 09:22 | DVHNC2 ---
Procedure - Bronchoscopy procedure note: Indications:Possible mucous plugging. Medicines: See B[facility]ER notes. Complications: None Time out 0730 am Procedure: Patient medications and allergies reviewed. The risks and benefits of the procedure and the sedation options and risk were discussed with the patient's healthcare proxy. All questions were answered and informed consent was obtained. Patient identification and proposed procedure were verified prior to the procedure by the physician, and a nurse, and the respiratory therapist in ICU room. The heart rate, respiratory rate, oxygen saturations, blood pressure, adequacy of pulmonary ventilation, and response to care were monitored throughout the procedure. The physical status of the patient was reassessed after the procedure. After obtaining informed consent, the bronchoscope was introduced through the endotracheal tube and advanced into the trachea bronchial tree of both lungs. The procedure was accomplished without difficulty. The patient tolerated the procedure well. Findings: The trachea is in normal caliber. The bob is sharp. The tracheobronchial tree of the right lung was examined to at least the first subsegmental level. The bronchial mucosa and anatomy in the right lung are normal. There are no endobronchial lesions. There were scant right lower lobe secretions. The left upper lobe, lingula, and left lower lobe were examined to at least the first subsegmental level. Bronchial mucosa and anatomy in the left upper lobe and lingula are normal. There were no endobronchial lesions. There were no secretions. There was no active bleeding at the completion of the procedure. Estimated blood loss: Less than 5 mL. Impression: Scant right lower lobe secretions. Recommendation: Oral care Procedure codes: 90816, bronchoscopy, rigid and flexible, including fluoroscopic guidance, one performed; with bronchial endobronchial broncho-alveolar lavage, single or multiple sites JESUS NAYAK MD Jun 15, 2025 09:22
[2025-06-15] MEDS: POTASSIUM CHL 20MEQ/100ML 100 ML IV SCH (11:09)
--- NOTE | 2025-06-15 18:41 | DVHPNRES ---
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 He developed septic shock secondary to pneumonia with sputum culture growing S. aureus, Acinetobacter baumannii and beta strep non-A. He is on vancomycin and meropenem. Also, his O2 saturations dropped to 6570% requiring intubation. Patient had bronchoscopy 06/15/25 and tube exchange, we will continue current care Objective vital signs Vital Sign Date Time Temp Pulse Resp B/P (MAP) Pulse Ox O2 Delivery O2 Flow Rate FiO2 06/15/25 18:15 99.7 88 21 111/61 (78) 100 211.5 06/15/25 18:07 30 06/15/25 18:00 Mechanical Ventilator+ Total Intake and Output 06/14/25 06/14/25 06/15/25 15:00 23:00 07:00 Intake Total 729.875 ml 616.215 ml 811.573 ml Output Total 1250 ml 450 ml Balance 729.875 ml -633.785 ml 361.573 ml medications Current Medications Medications Dose Ordered Sig/Ezequiel Route Start Time Stop Time Status Last Admin Dose Admin Midazolam HCl 50 ml @ 1 mls/hr Q24H IV 06/10/25 13:45 06/15/25 11:16 2 MLS/HR Fentanyl Citrate 250 ml @ 2.5 mls/hr Q24H IV 06/10/25 14:45 06/15/25 04:59 12.5 MLS/HR Pantoprazole Sodium 40 mg BID IV 06/10/25 22:00 06/15/25 09:16 40 MG Levetiracetam 100 ml @ 400 mls/hr BID IV 06/10/25 22:00 06/15/25 09:17 400 MLS/HR Nitroglycerin 0.4 mg Q5MINP PRN SL 06/10/25 23:15 Cancel Morphine Sulfate 2 mg Q30M PRN IV 06/10/25 23:15 Cancel Nitroglycerin 0.4 mg Q5MINP PRN SL 06/11/25 00:15 Morphine Sulfate 2 mg Q30M PRN IV 06/11/25 00:15 Cancel Enoxaparin Sodium 40 mg DAILY SC 06/11/25 10:00 06/15/25 09:16 40 MG Diagnostic Test (Pha) 1 strip IQ4HR 06/11/25 16:00 Cancel Insulin Human Regular IQ4HR SC 06/11/25 16:00 Cancel Dextrose 50 ml UD PRN IV 06/11/25 13:15 Cancel Insulin Human Regular HS SC 06/11/25 22:00 Cancel Dextrose 50 ml UD PRN IV 06/11/25 14:15 Cancel Enteral Nutritional Formula 1,000 ml 40ML/HR GT 06/11/25 14:45 06/15/25 08:34 1,000 ML Diagnostic Test (Pha) 1 strip ACHS 06/11/25 22:00 06/15/25 17:23 1 STRIP Insulin Human Regular ACHS SC 06/11/25 22:00 06/15/25 11:32 2 UNITS Dextrose 50 ml UD PRN IV 06/11/25 17:30 Albuterol 2.5 mg Q6HR NEB 06/12/25 12:00 06/15/25 18:07 2.5 MG Ipratropium [place] 0.5 mg Q6HR NEB 06/12/25 12:00 06/15/25 18:07 0.5 MG Acetylcysteine 200 mg Q6HR NEB 06/12/25 12:00 06/15/25 18:07 200 MG Vancomycin HCl 0 ml @ 0 mls/hr UD IV 06/13/25 13:15 Meropenem 50 ml @ 17 mls/hr Q8HR IV 06/13/25 14:00 06/15/25 13:37 17 MLS/HR Norepinephrine Bitartrate 250 ml @ 1.875 mls/ hr Q24H IV 06/14/25 07:45 06/15/25 13:19 15 MLS/HR Vancomycin HCl 250 ml @ 200 mls/hr Q12H IV 06/15/25 05:00 06/15/25 17:23 200 MLS/HR Sennosides 8.6 mg HS PO 06/15/25 22:00 Polyethylene Glycol 17 gm DAILY PO 06/16/25 10:00 Examination General Appearance: Severe Distress, pupils reactive Neck: Full Range of Motion, Non-Tender, Normal, Normal Inspection Respiratory: Chest Non-Tender, Lungs Clear, No Accessory Muscle Use, No Respiratory Distress, Normal Breath Sounds Cardiovascular: No Edema, No JVD, No Murmur, No Gallop, Normal RIJ Gastrointestinal: No Organomegaly, Non Tender, No Pulsatile Mass, Normal Bowel Sounds, Soft, PEG tube functioning with black secretion? Extremities: No pedal edema laboratory and microbiology Laboratory Tests 06/15/25 05:05 Test 06/15/25 05:05 Range/Units Serum Glucose 96 74-106 mg/dL Microbiology Date/Time Source Procedure Growth Status 06/14/25 15:08 Catheter Site Aerobic Culture - Preliminary Resulted 06/10/25 13:05 Blood Blood Culture - Final NO GROWTH AFTER 5 DAYS OF INCUBATION. 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 #History of neurocysticercosis. patient is on versed and fentanyl pt needed paralitics during bronchoscopy levetiracetam IV BID Cardiovascular #Septic shock due to gram+/gram - pneumonia #Chronic diastolic heart failure. levophed 7 mcg: increased hold on GDMT, until shock resolved Respiratory: #Acute respiratory failure due to: #Septic shock due to gram+/gram - pneumonia #Aspiration pneumonia #COPD exacerbation #sp broncoscopy #sp tube exchange minimal vent settings staph aureus, acinobacter baumani and B strep Angelika isolated: on vancomycin and meropenem IV no plans of extubation during the weekend bronchoscopy: The trachea is in normal caliber. The bob is sharp. The tracheobronchial tree of the right lung was examined to at least the first subsegmental level. The bronchial mucosa and anatomy in the right lung are normal. There are no endobronchial lesions. There were scant right lower lobe secretions. The left upper lobe, lingula, and left lower lobe were examined to at least the first subsegmental level. Bronchial mucosa and anatomy in the left upper lobe and lingula are normal. There were no endobronchial lesions. There were no secretions. There was no active bleeding at the completion of the procedure. New cultures taken GI: #s/p PEG tube #H/o GERD #Transaminitis (Hyperbilirubinemia) PEG tube showing black secretions, culture of the tube was sent bowel regimen started due to constipation Metabolic #DM type 2, hba1c 5,9 #Hypokalemia #Hypomagnesemia ISS K+ IV Mg2+ IV Renal adequate urine output Heme/onc #Anemia normocytic, normochromic monitor Musculoskeletal #Bedbound status with functional paraplegia Case discussed with Dr Xavier and his daughter at bedside, patient is full code DVT prophylaxis: enoxaparin PUD prophylaxis: protonix RIJ: 06/10/25 Mock catheter PEG tube ET tube exchange 06/15/25 Plan discussed with: Daughter, Other (rn) Dietary Evaluation Review Comments: Nutrition Recommendation: 1) TF Jevity 1.2Cal @ 45ml/hr x 24hr (goal) along with Pro-stat 1 pk daily. Start @ 20ml/hr, increase 10ml/hr Q4H until goal is reached. TF @ goal volume along with Pro-stat provide 1396 kcal (100% energy needs), 75 gm protein (100% protein needs), 872 ml free water. 2) Water flush 130ml Q6H if allowed, adjust PRN 3) TPN if NPO >7 days 4) Monitor NPO status, lab values, wt trend, I/O Expected Outcomes/Goals: To meet >75% estimated needs Lab values to improve Fu 2-3 days Sepsis reassessment post fluid Is the fluid challenge complet: No (PROVIDER ORDERED NO FLUID CHALLENGE DUE TO RISK OF FLUID OVERLOAD) Date of Reassessment: Jun 10, 2025 Time of Reassessment: 183 Blood Culture Time: 1215 Time Antibiotics Given: 1215 Systolic BP: 94 Diastolic BP: 51 Blood Pressure Mean: 65 Respiration: 20 Respiratory Effort: Non-Labored, ET Tube Respiratory Pattern: Regular Oxygen Saturation: 95 Pulse Rate: 93 Pulse Location: Radial Pulse Strength: Normal 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
[2025-06-15] MEDS: SENNA 8.6 MG TAB PO SCH (21:59)
--- NOTE | 2025-06-15 22:53 | DVHPN2 ---
Progress Note - Dictate Date Seen: Jun 15, 2025 Medical Necessity Reason Pt with a Central, PICC or Fol: Yes The following are medically ne: Central Line, Mock Catheter Reason for mock catheter: Strict I&O Subjective Patient seen and examined at bedside. Sedated, intubated on mechanical ventilator. Overnight events reviewed. vital signs Vital Sign Date Time Temp Pulse Resp B/P (MAP) Pulse Ox O2 Delivery O2 Flow Rate FiO2 06/15/25 22:30 98.2 100 27 116/61 (79) 100 208.8 06/15/25 22:00 Mechanical Ventilator+ 30 30 Total Intake and Output 06/14/25 06/14/25 06/15/25 15:00 23:00 07:00 Intake Total 729.875 ml 616.215 ml 811.573 ml Output Total 1250 ml 450 ml Balance 729.875 ml -633.785 ml 361.573 ml medications Current Medications Medications Dose Ordered Sig/Ezequiel Route Start Time Stop Time Status Last Admin Dose Admin Midazolam HCl 50 ml @ 1 mls/hr Q24H IV 06/10/25 13:45 06/15/25 18:51 2 MLS/HR Fentanyl Citrate 250 ml @ 2.5 mls/hr Q24H IV 06/10/25 14:45 06/15/25 20:21 12.5 MLS/HR Pantoprazole Sodium 40 mg BID IV 06/10/25 22:00 06/15/25 21:59 40 MG Levetiracetam 100 ml @ 400 mls/hr BID IV 06/10/25 22:00 06/15/25 22:00 400 MLS/HR Nitroglycerin 0.4 mg Q5MINP PRN SL 06/10/25 23:15 Cancel Morphine Sulfate 2 mg Q30M PRN IV 06/10/25 23:15 Cancel Nitroglycerin 0.4 mg Q5MINP PRN SL 06/11/25 00:15 Morphine Sulfate 2 mg Q30M PRN IV 06/11/25 00:15 Cancel Enoxaparin Sodium 40 mg DAILY SC 06/11/25 10:00 06/15/25 09:16 40 MG Diagnostic Test (Pha) 1 strip IQ4HR 06/11/25 16:00 Cancel Insulin Human Regular IQ4HR SC 06/11/25 16:00 Cancel Dextrose 50 ml UD PRN IV 06/11/25 13:15 Cancel Insulin Human Regular HS SC 06/11/25 22:00 Cancel Dextrose 50 ml UD PRN IV 06/11/25 14:15 Cancel Enteral Nutritional Formula 1,000 ml 40ML/HR GT 06/11/25 14:45 06/15/25 08:34 1,000 ML Diagnostic Test (Pha) 1 strip ACHS 06/11/25 22:00 06/15/25 21:59 1 STRIP Insulin Human Regular ACHS SC 06/11/25 22:00 06/15/25 11:32 2 UNITS Dextrose 50 ml UD PRN IV 06/11/25 17:30 Albuterol 2.5 mg Q6HR NEB 06/12/25 12:00 06/15/25 18:07 2.5 MG Ipratropium [place] 0.5 mg Q6HR NEB 06/12/25 12:00 06/15/25 18:07 0.5 MG Acetylcysteine 200 mg Q6HR NEB 06/12/25 12:00 06/15/25 18:07 200 MG Vancomycin HCl 0 ml @ 0 mls/hr UD IV 06/13/25 13:15 Meropenem 50 ml @ 17 mls/hr Q8HR IV 06/13/25 14:00 06/15/25 22:00 17 MLS/HR Norepinephrine Bitartrate 250 ml @ 1.875 mls/ hr Q24H IV 06/14/25 07:45 06/15/25 13:19 15 MLS/HR Vancomycin HCl 250 ml @ 200 mls/hr Q12H IV 06/15/25 05:00 06/15/25 17:23 200 MLS/HR Sennosides 8.6 mg HS PO 06/15/25 22:00 06/15/25 21:59 8.6 MG Polyethylene Glycol 17 gm DAILY PO 06/16/25 10:00 objective Gen.: Patient lying in bed in medical ICU. Sedated, intubated on mechanical ventilator. Head: Normocephalic, atraumatic. Eyes: PERRLA. Ears: Normal external anatomy. Throat: Endotracheal tube and orogastric tube in place. Neck: Supple, trachea midline. Chest: Transmitted breath sounds bilaterally. Decreased air entry bilaterally. No wheezing. Bibasilar crackles. Cardiovascular: Positive S1, positive S2. Regular rate and rhythm. Abdomen: Positive bowel sounds in all 4 quadrants. Soft, nontender, nondistended. : Mock in place. Normal external genitalia. Rectal: Deferred. Skin: Warm, dry. Intact. Extremities: 2+ radial pulses bilaterally. No lower extremity edema. Neuro: Sedated. Paraplegia. laboratory and microbiology Laboratory Tests 06/15/25 05:05 Test 06/15/25 05:05 Range/Units Serum Glucose 96 74-106 mg/dL Assessment/Plan Impression: Acute hypoxic respiratory failure On mechanical ventilator Septic shock with pneumonia, ?aspiration COPD with exacerbation. History of seizure disorder Chronic diastolic heart failure. Bedbound status with functional paraplegia. Events: Remains on vent support On AC mode; RR 20, VT 400, PEEP 5, FiO2 30% Sedated on Versed, Fentanyl Off Precedex drip. ABG reviewed, notable for acidemia CXR reviewed, Left basilar pneumonia. Reactive airways disease. Devices in place On pressors for hemodynamic support Levophed 8 mcg/min Titrate to keep mean arterial pressure greater than 65 mmHg. Continue antibiotics Monitor renal function Monitor electrolytes. Supplement as necessary. K, mag supplementation Patient underwent bronchoscopy today - no secretions. S/p ET tube exchange, Labs and imaging reviewed. Rest of plan as noted below. Plan: s/p intubation on mechanical ventilator. On AC mode; RR 20, VT 400, PEEP 5, FiO2 30% Titrate FIO2 to keep O2 saturation above 90%. VAP bundle. Daily ABG and CXR while intubated Sedate for vent synchrony On pressors for hemodynamic support Titrate to keep mean arterial pressure greater than 65 mmHg. Continue bronchodilators. Continue antibiotics. F/u sputum cultures - Positive for Acinetobacter. ET tube exchanged 06/15/25 due to Acinetobacter growth and recent fever. Antiepileptic with Keppra Monitor renal function Monitor electrolytes. Supplement as necessary. Monitor ins and outs. Maintain euvolemia. GI/DVT prophylaxis. Prognosis: Poor given patient's multiple co-morbidities. Condition: Critical Rest of plan per hospitalist and other consultants. A total of 35 minutes of critical care time was spent reviewing the patient record, examining the patient, making a diagnostic and therapeutic plan, discussing this plan with the medical personnel, following up on diagnostic studies and following the patient for clinical stability excluding any and all procedures. At least 50% of this time was spent in direct, [id number] contact. Thank you Dr. Argueta for allowing me to participate in this patient's care. Further recommendations will depend on the patient's clinical course. Please do not hesitate to contact me if you have any questions or concerns. This medical document was created using an electronic medical record system with [employer] dictation system. Although these documentations are being carefully reviewed, there may still be some phonetic and typographical changes. The errors are purely typographical, due to imperfection on the software program, and do not reflect any compromise in the patient's medical care. Dietary Evaluation Review Comments: Nutrition Recommendation: 1) TF Jevity 1.2Cal @ 45ml/hr x 24hr (goal) along with Pro-stat 1 pk daily. Start @ 20ml/hr, increase 10ml/hr Q4H until goal is reached. TF @ goal volume along with Pro-stat provide 1396 kcal (100% energy needs), 75 gm protein (100% protein needs), 872 ml free water. 2) Water flush 130ml Q6H if allowed, adjust PRN 3) TPN if NPO >7 days 4) Monitor NPO status, lab values, wt trend, I/O Expected Outcomes/Goals: To meet >75% estimated needs Lab values to improve Fu 2-3 days Plan discussed with: Other (ALEXANDER Us) Critical Care Time(min): 35 Is the fluid challenge complet: No (PROVIDER ORDERED NO FLUID CHALLENGE DUE TO RISK OF FLUID OVERLOAD) Date of Reassessment: Jun 10, 2025 Time of Reassessment: 183 Blood Culture Time: 1215 Time Antibiotics Given: 1215 Systolic BP: 94 Diastolic BP: 51 Blood Pressure Mean: 65 Respiration: 20 Respiratory Effort: Non-Labored, ET Tube Respiratory Pattern: Regular Oxygen Saturation: 95 Pulse Rate: 93 Pulse Location: Radial Pulse Strength: Normal Pulse Assessment Method: [employer] Pulse Rhythm: Regular Capillary Refill: < 3 seconds Heart Sounds: S1 & S2 Breath sounds: Diminished Skin Moisture: Dry Skin Tugor: WNL Skin Color: WNL JEUSS NAYAK MD Jun 15, 2025 22:53
[2025-06-16] VITALS (109 sets, daily range): BP systolic 71–144; BP diastolic 28–79; PULSE 87–119; RESP 16–34; TEMP 98.1–101.3; O2SAT 98–100
[2025-06-16 05:34] LABS: Hematocrit 29.2 % (41.0-53.0); Hemoglobin 10.1 g/dL (13.5-17.5); Mean Corpuscular Hemoglobin 29.9 pg (28.0-32.0); Mean Corpuscular Volume 86.7 fL (80.0-100.0); Nucleated Red Blood Cells % 0.0 %
[2025-06-16 05:55] LABS: Alanine Aminotransferase 20 U/L (7-40); Albumin 3.4 g/dL (3.2-4.8); Alkaline Phosphatase 72 U/L (46-116); Anion Gap 8 (5-15); BUN/Creatinine Ratio 12.5 (10.0-20.0); Calcium 9.9 mg/dL (8.7-10.4); Carbon Dioxide 28 mmol/L (20-31); Chloride 102 mmol/L (98-107); Glucose 99 mg/dL (74-106); Sodium 138 mmol/L (136-145); Total Protein 6.3 g/dL (5.7-8.2)
[2025-06-16 06:01] LABS: Bilirubin, Total 0.2 mg/dL (0.2-1.0); Blood Urea Nitrogen 5 mg/dL (9-23); Potassium 3.4 mmol/L (3.5-5.1)
[2025-06-16 07:20] LABS: Base Excess 1.7 mmol/L (-2.0-3.0)
--- NOTE | 2025-06-16 07:45 | DVH ---
CHEST RADIOGRAPH Indication: INTUBATED Technique: Single frontal view of the chest was obtained COMPARISON: XY CHEST XRAY 1 VIEW on DOS: 06/15/25, XY CHEST PORTABLE on DOS: 06/14/25, XY CHEST PORTABL E on DOS: 06/13/25, XY CHEST PORTABLE on DOS: 06/12/25, XY CHEST PORTABLE on DOS: 05/27/25, XY CHEST POR TABLE on DOS: 06/14/25 FINDINGS: Lines and Tubes: Endotracheal tube, enteric catheter and right central venous catheter in satisfactor y position Lungs: Congestion Pleura: No effusion. No pneumothorax. Cardiomediastinal contours: Unremarkable Bones: Unremarkable IMPRESSION: Lines and tubes in satisfactory position. No significant interval change.
[2025-06-16] MEDS: POTASSIUM CHL 20MEQ/100ML 100 ML IV SCH (09:19)
[2025-06-16] MEDS: POLYETHYLENE GLYCOL 17 GM PWDR PO SCH (09:20)
[2025-06-16] MEDS: DEXMEDETOMIDINE HCL IN D5W 100 ML IV SCH (14:15)
--- NOTE | 2025-06-16 14:15 | DVHPN2 ---
Subjective seen today, will add precedex, put on cpap for exercise. not planning extubation yet Changes from previous H/P or p: No Changes Eyes: No Pain, No Vision change, No Conjunctivae inflammation, No Eyelid inflammation, No Other, No Redness ENT: No Ear pain, No Ear discharge, No Nose pain, No Nose discharge, No Nose congestion, No Mouth pain, No Mouth swelling, No Throat pain, No Throat swelling, No Other Cardiovascular: No Chest Pain, No Palpitations, No Orthopnea, No Paroxysmal Noc. Dyspnea, No Edema, No Lt Headedness, No Other Respiratory: No Cough, No Dry; Shortness of breath, SOB with excertion; No Wheezing, No Hemoptysis, No Pleuritic Pain, No Sputum; Other (SOB at rest) Gastrointestinal: No Nausea, No Vomiting, No Abdominal Pain, No Diarrhea, No Constipation, No Melena, No Hematochezia, No Other Genitourinary: No Dysuria, No Frequency, No Incontinence, No Hematuria, No Retention; Other ([place] catheter in place) Musculoskeletal: No other, No neck pain, No shoulder pain, No arm pain, No back pain, No hand pain, No leg pain, No foot pain Skin: No Rash, No Lesions, No Jaundice, No Bruising, No Other Objective Vitals Vital Signs Date Time Temp Pulse Resp B/P (MAP) Pulse Ox O2 Delivery O2 Flow Rate FiO2 06/16/25 13:41 99 20 107/54 (71) 99 30 06/16/25 13:00 99.7 211.5 06/16/25 12:00 Mechanical Ventilator+ Intake/Output Intake and Output 06/16/25 07:00 Intake Total 2391.500 ml Output Total 1700 ml Balance 691.500 ml Intake Oral 30 ml IV Total 2146.500 ml Tube Feeding 215 ml Output Urine Total 1700 ml Medications Current Medications Medications Dose Ordered Sig/Ezequiel Route Start Time Stop Time Status Last Admin Dose Admin Midazolam HCl 50 ml @ 1 mls/hr Q24H IV 06/10/25 13:45 06/16/25 01:08 4 MLS/HR Fentanyl Citrate 250 ml @ 2.5 mls/hr Q24H IV 06/10/25 14:45 06/15/25 20:21 12.5 MLS/HR Pantoprazole Sodium 40 mg BID IV 06/10/25 22:00 06/16/25 09:20 40 MG Levetiracetam 100 ml @ 400 mls/hr BID IV 06/10/25 22:00 06/16/25 09:20 400 MLS/HR Nitroglycerin 0.4 mg Q5MINP PRN SL 06/10/25 23:15 Cancel Morphine Sulfate 2 mg Q30M PRN IV 06/10/25 23:15 Cancel Nitroglycerin 0.4 mg Q5MINP PRN SL 06/11/25 00:15 Morphine Sulfate 2 mg Q30M PRN IV 06/11/25 00:15 Cancel Enoxaparin Sodium 40 mg DAILY SC 06/11/25 10:00 06/16/25 09:20 40 MG Diagnostic Test (Pha) 1 strip IQ4HR 06/11/25 16:00 Cancel Insulin Human Regular IQ4HR SC 06/11/25 16:00 Cancel Dextrose 50 ml UD PRN IV 06/11/25 13:15 Cancel Insulin Human Regular HS SC 06/11/25 22:00 Cancel Dextrose 50 ml UD PRN IV 06/11/25 14:15 Cancel Enteral Nutritional Formula 1,000 ml 40ML/HR GT 06/11/25 14:45 06/15/25 08:34 1,000 ML Diagnostic Test (Pha) 1 strip ACHS 06/11/25 22:00 06/16/25 11:26 1 STRIP Insulin Human Regular ACHS SC 06/11/25 22:00 06/15/25 11:32 2 UNITS Dextrose 50 ml UD PRN IV 06/11/25 17:30 Albuterol 2.5 mg Q6HR NEB 06/12/25 12:00 06/16/25 11:23 2.5 MG Ipratropium [place] 0.5 mg Q6HR NEB 06/12/25 12:00 06/16/25 11:23 0.5 MG Acetylcysteine 200 mg Q6HR NEB 06/12/25 12:00 06/16/25 11:23 200 MG Vancomycin HCl 0 ml @ 0 mls/hr UD IV 06/13/25 13:15 Meropenem 50 ml @ 17 mls/hr Q8HR IV 06/13/25 14:00 06/16/25 06:03 17 MLS/HR Norepinephrine Bitartrate 250 ml @ 1.875 mls/ hr Q24H IV 06/14/25 07:45 06/16/25 01:38 7.5 MLS/HR Vancomycin HCl 250 ml @ 200 mls/hr Q12H IV 06/15/25 05:00 06/16/25 04:41 200 MLS/HR Sennosides 8.6 mg HS PO 06/15/25 22:00 06/15/25 21:59 8.6 MG Polyethylene Glycol 17 gm DAILY PO 06/16/25 10:00 06/16/25 09:20 17 GM Laboratory Results Laboratory Tests 06/16/25 04:56 Chemistry Test 06/16/25 04:56 Albumin 3.4 g/dL (3.2-4.8) Calcium Level 9.9 mg/dL (8.7-10.4) Phosphorus Level 1.6 mg/dL (2.4-5.1) L Total Protein 6.3 g/dL (5.7-8.2) LFT Test 06/16/25 04:56 Alanine Aminotransferase (ALT) 20 U/L (7-40) Alkaline Phosphatase 72 U/L (46-116) Aspartate Amino Transferase (AST) 19 U/L (13-40) Total Bilirubin 0.2 mg/dL (0.2-1.0) Urinalysis Test 06/10/25 12:55 Urine Color Light-yellow (Yellow) Urine Clarity Clear (Clear) Urine pH 6.5 (5.0-9.0) Urine Specific [place] 1.012 (1.001-1.035) Urine Protein Negative (Negative) Urine Ketones Negative (Negative) Urine Blood Negative /uL (Negative) Urine Nitrite Negative (Negative) Urine Bilirubin Negative (Negative) Urine Urobilinogen Normal mg/dL (Negative) Urine Leukocyte Esterase Trace /uL (Negative) Urine RBC 6 /hpf (0 - 4) Urine Microscopic WBC 4 /HPF (0-5) Urine Squamous Epithelial Cells Few /hpf (<5) Urine Bacteria None seen /hpf (None Seen) Urine Glucose Normal mg/dL (Normal) Blood Gas Results Test 06/16/25 07:08 Arterial Blood pH 7.380 (7.350-7.450) FiO2 % 30.0 Microbiology Microbiology Date/Time Source Procedure Growth Status 06/14/25 15:08 Catheter Site Aerobic Culture - Preliminary Resulted 06/10/25 13:05 Blood Blood Culture - Final NO GROWTH AFTER 5 DAYS OF INCUBATION. 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 #History of neurocysticercosis. patient is on versed and fentanyl pt needed paralitics during bronchoscopy levetiracetam IV BID Cardiovascular #Septic shock due to gram+/gram - pneumonia #Chronic diastolic heart failure. levophed 7 mcg: increased hold on GDMT, until shock resolved Respiratory: #Acute respiratory failure due to: #Septic shock due to gram+/gram - pneumonia #Aspiration pneumonia #COPD exacerbation #sp broncoscopy #sp tube exchange minimal vent settings staph aureus, acinobacter baumani and B strep Angelika isolated: on vancomycin and meropenem IV no plans of extubation during the weekend bronchoscopy: The trachea is in normal caliber. The bob is sharp. The tracheobronchial tree of the right lung was examined to at least the first subsegmental level. The bronchial mucosa and anatomy in the right lung are normal. There are no endobronchial lesions. There were scant right lower lobe secretions. The left upper lobe, lingula, and left lower lobe were examined to at least the first subsegmental level. Bronchial mucosa and anatomy in the left upper lobe and lingula are normal. There were no endobronchial lesions. There were no secretions. There was no active bleeding at the completion of the procedure. New cultures taken GI: #s/p PEG tube #H/o GERD #Transaminitis (Hyperbilirubinemia) PEG tube showing black secretions, culture of the tube was sent bowel regimen started due to constipation Metabolic #DM type 2, hba1c 5,9 #Hypokalemia #Hypomagnesemia ISS K+ IV Mg2+ IV Renal adequate urine output Heme/onc #Anemia normocytic, normochromic monitor Musculoskeletal #Bedbound status with functional paraplegia DVT prophylaxis: enoxaparin PUD prophylaxis: protonix RIJ: 06/10/25 [place] catheter PEG tube ET tube exchange 06/15/25 Plan discussed with: Spouse, Daughter My Orders Orders - SUJEY HERNANDEZ MD Procedure Category Date Status Time Precedex Drip Rass 0 PHA 06/16/25 Verified 14:15 NS PHA 06/16/25 Verified 14:15 Date of Service: Jun 16, 2025 Billing Provider: SUJEY HERNANDEZ MD Common Visit Codes: [id number] CARE 30-74 MIN SUJEY HERNANDEZ MD Jun 16, 2025 14:15
[2025-06-16] MEDS: SODIUM CHLORIDE 0.9% 500 ML IV ONE (14:57)
[2025-06-16] MEDS: MAGNESIUM SULFATE 1GM/100ML 100 ML IV SCH (15:08)
[2025-06-16] MEDS: ACETAMINOPHEN 325 MG TAB PO PRN (16:21)
[2025-06-16] MEDS: POTASSIUM PHOSPHATE 44 MEQ in D5W 5% 250 ML IV ONE (16:43)
--- NOTE | 2025-06-16 23:24 | DVHPN2 ---
Progress Note - Dictate Date Seen: Jun 16, 2025 Medical Necessity Reason Pt with a Central, PICC or Fol: Yes The following are medically ne: Central Line, Mock Catheter Reason for mock catheter: Strict I&O Subjective Patient seen and examined at bedside. Sedated, intubated on mechanical ventilator. Overnight events reviewed. vital signs Vital Sign Date Time Temp Pulse Resp B/P (MAP) Pulse Ox O2 Delivery O2 Flow Rate FiO2 06/16/25 23:00 101.3 100 20 93/50 (64) 100 214.3 06/16/25 22:31 30 06/16/25 22:00 Mechanical Ventilator+ Total Intake and Output 06/15/25 06/15/25 06/16/25 15:00 23:00 07:00 Intake Total 764.625 ml 1033.375 ml 593.5 ml Output Total 1000 ml 700 ml Balance 764.625 ml 33.375 ml -106.5 ml medications Current Medications Medications Dose Ordered Sig/Ezequiel Route Start Time Stop Time Status Last Admin Dose Admin Midazolam HCl 50 ml @ 1 mls/hr Q24H IV 06/10/25 13:45 06/16/25 01:08 4 MLS/HR Fentanyl Citrate 250 ml @ 2.5 mls/hr Q24H IV 06/10/25 14:45 06/16/25 16:43 5 MLS/HR Pantoprazole Sodium 40 mg BID IV 06/10/25 22:00 06/16/25 21:40 40 MG Levetiracetam 100 ml @ 400 mls/hr BID IV 06/10/25 22:00 06/16/25 21:39 400 MLS/HR Nitroglycerin 0.4 mg Q5MINP PRN SL 06/10/25 23:15 Cancel Morphine Sulfate 2 mg Q30M PRN IV 06/10/25 23:15 Cancel Nitroglycerin 0.4 mg Q5MINP PRN SL 06/11/25 00:15 Morphine Sulfate 2 mg Q30M PRN IV 06/11/25 00:15 Cancel Enoxaparin Sodium 40 mg DAILY SC 06/11/25 10:00 06/16/25 09:20 40 MG Diagnostic Test (Pha) 1 strip IQ4HR 06/11/25 16:00 Cancel Insulin Human Regular IQ4HR SC 06/11/25 16:00 Cancel Dextrose 50 ml UD PRN IV 06/11/25 13:15 Cancel Insulin Human Regular HS SC 06/11/25 22:00 Cancel Dextrose 50 ml UD PRN IV 06/11/25 14:15 Cancel Enteral Nutritional Formula 1,000 ml 40ML/HR GT 06/11/25 14:45 06/15/25 08:34 1,000 ML Diagnostic Test (Pha) 1 strip ACHS 06/11/25 22:00 06/16/25 22:11 1 STRIP Insulin Human Regular ACHS SC 06/11/25 22:00 06/16/25 22:12 2 UNITS Dextrose 50 ml UD PRN IV 06/11/25 17:30 Albuterol 2.5 mg Q6HR NEB 06/12/25 12:00 06/16/25 18:48 2.5 MG Ipratropium [place] 0.5 mg Q6HR NEB 06/12/25 12:00 06/16/25 18:48 0.5 MG Acetylcysteine 200 mg Q6HR NEB 06/12/25 12:00 06/16/25 18:49 200 MG Vancomycin HCl 0 ml @ 0 mls/hr UD IV 06/13/25 13:15 Meropenem 50 ml @ 17 mls/hr Q8HR IV 06/13/25 14:00 06/16/25 21:40 17 MLS/HR Norepinephrine Bitartrate 250 ml @ 1.875 mls/ hr Q24H IV 06/14/25 07:45 06/16/25 01:38 7.5 MLS/HR Sennosides 8.6 mg HS PO 06/15/25 22:00 06/16/25 21:40 8.6 MG Polyethylene Glycol 17 gm DAILY PO 06/16/25 10:00 06/16/25 09:20 17 GM Acetaminophen 650 mg Q6HP PRN PO 06/16/25 15:30 06/16/25 22:54 650 MG objective Gen.: Patient lying in bed in medical ICU. Sedated, intubated on mechanical ventilator. Head: Normocephalic, atraumatic. Eyes: PERRLA. Ears: Normal external anatomy. Throat: Endotracheal tube and orogastric tube in place. Neck: Supple, trachea midline. Chest: Transmitted breath sounds bilaterally. Decreased air entry bilaterally. No wheezing. Bibasilar crackles. Cardiovascular: Positive S1, positive S2. Regular rate and rhythm. Abdomen: Positive bowel sounds in all 4 quadrants. Soft, nontender, nondistended. : Mock in place. Normal external genitalia. Rectal: Deferred. Skin: Warm, dry. Intact. Extremities: 2+ radial pulses bilaterally. No lower extremity edema. Neuro: Sedated. Paraplegia. laboratory and microbiology Laboratory Tests 06/16/25 04:56 Test 06/16/25 04:56 Range/Units Serum Glucose 99 74-106 mg/dL Assessment/Plan Impression: Acute hypoxic respiratory failure On mechanical ventilator Septic shock with pneumonia, ?aspiration COPD with exacerbation. History of seizure disorder Chronic diastolic heart failure. Bedbound status with functional paraplegia. Events: Remains on vent support On AC mode; RR 20, VT 400, PEEP 5, FiO2 30% Taper FiO2 as tolerated ABG reviewed, compensated CXR reviewed, notable for pulmonary congestion. Devices in place Sedated on Versed 5 mg/hr On pressors for hemodynamic support Levophed 4 mcg/min Titrate to keep mean arterial pressure greater than 65 mmHg. Improving pressor requirements Continue antibiotics Continue bronchodilators Mucomyst Monitor renal function Monitor electrolytes. Supplement as necessary. K, mag supplementation Taper sedation as tolerated Plan for CPAP once patient is awake, alert. Patient underwent bronchoscopy on 06/15/25 - no secretions. S/p ET tube exchange, Labs and imaging reviewed. Rest of plan as noted below. Plan: s/p intubation on mechanical ventilator. On AC mode; RR 20, VT 400, PEEP 5, FiO2 30% Titrate FIO2 to keep O2 saturation above 90%. VAP bundle. Daily ABG and CXR while intubated Sedate for vent synchrony On pressors for hemodynamic support Titrate to keep mean arterial pressure greater than 65 mmHg. Continue bronchodilators. Continue antibiotics. F/u sputum cultures - Positive for Acinetobacter. ET tube exchanged 06/15/25 due to Acinetobacter growth and recent fever. Antiepileptic with Keppra Monitor renal function Monitor electrolytes. Supplement as necessary. Monitor ins and outs. Maintain euvolemia. GI/DVT prophylaxis. Prognosis: Poor given patient's multiple co-morbidities. Condition: Critical Rest of plan per hospitalist and other consultants. A total of 35 minutes of critical care time was spent reviewing the patient record, examining the patient, making a diagnostic and therapeutic plan, discussing this plan with the medical personnel, following up on diagnostic studies and following the patient for clinical stability excluding any and all procedures. At least 50% of this time was spent in direct, [id number] contact. Thank you Dr. Argueta for allowing me to participate in this patient's care. Further recommendations will depend on the patient's clinical course. Please do not hesitate to contact me if you have any questions or concerns. This medical document was created using an electronic medical record system with [employer] dictation system. Although these documentations are being carefully reviewed, there may still be some phonetic and typographical changes. The errors are purely typographical, due to imperfection on the software program, and do not reflect any compromise in the patient's medical care. Dietary Evaluation Review Comments: Nutrition Recommendation: 1) TF Jevity 1.2Cal @ 45ml/hr x 24hr (goal) along with Pro-stat 1 pk daily. Start @ 20ml/hr, increase 10ml/hr Q4H until goal is reached. TF @ goal volume along with Pro-stat provide 1396 kcal (100% energy needs), 75 gm protein (100% protein needs), 872 ml free water. 2) Water flush 130ml Q6H if allowed, adjust PRN 3) TPN if NPO >7 days 4) Monitor NPO status, lab values, wt trend, I/O Expected Outcomes/Goals: To meet >75% estimated needs Lab values to improve Fu 2-3 days Plan discussed with: Other (ALEXANDER Samson) Critical Care Time(min): 35 Is the fluid challenge complet: No (PROVIDER ORDERED NO FLUID CHALLENGE DUE TO RISK OF FLUID OVERLOAD) Date of Reassessment: Jun 10, 2025 Time of Reassessment: 183 Blood Culture Time: 1215 Time Antibiotics Given: 1215 Systolic BP: 94 Diastolic BP: 51 Blood Pressure Mean: 65 Respiration: 20 Respiratory Effort: Non-Labored, ET Tube Respiratory Pattern: Regular Oxygen Saturation: 95 Pulse Rate: 93 Pulse Location: Radial Pulse Strength: Normal Pulse Assessment Method: Data Center [employer] Pulse Rhythm: Regular Capillary Refill: < 3 seconds Heart Sounds: S1 & S2 Breath sounds: Diminished Skin Moisture: Dry Skin Tugor: WNL Skin Color: WNL JESUS NAYAK MD Jun 16, 2025 23:24
[2025-06-17] VITALS (110 sets, daily range): BP systolic 82–163; BP diastolic 36–120; PULSE 72–108; RESP 16–37; TEMP 95.2–100.4; O2SAT 95–100
[2025-06-17 05:21] LABS: Hematocrit 29.0 % (41.0-53.0); Hemoglobin 10.0 g/dL (13.5-17.5); Mean Corpuscular Hemoglobin 29.5 pg (28.0-32.0); Mean Corpuscular Volume 85.1 fL (80.0-100.0); Nucleated Red Blood Cells % 0.0 %
[2025-06-17 05:43] LABS: Alanine Aminotransferase 22 U/L (7-40); Albumin 3.5 g/dL (3.2-4.8); Alkaline Phosphatase 74 U/L (46-116); Anion Gap 8 (5-15); BUN/Creatinine Ratio 16.2 (10.0-20.0); Calcium 9.8 mg/dL (8.7-10.4); Carbon Dioxide 30 mmol/L (20-31); Magnesium 1.7 mg/dL (1.6-2.6); Potassium 3.7 mmol/L (3.5-5.1); Total Protein 6.3 g/dL (5.7-8.2)
[2025-06-17 05:44] LABS: Bilirubin, Total 0.3 mg/dL (0.2-1.0); Blood Urea Nitrogen 6 mg/dL (9-23); Chloride 97 mmol/L (98-107); Glucose 115 mg/dL (74-106); Sodium 135 mmol/L (136-145)
--- NOTE | 2025-06-17 06:44 | DVH ---
CHEST RADIOGRAPH Indication: Acute respiratory failure/ventilated Technique: Single frontal view of the chest was obtained COMPARISON: XY CHEST PORTABLE on DOS: 06/16/25, XY CHEST XRAY 1 VIEW on DOS: 06/15/25, XY CHEST PORTABL E on DOS: 06/14/25, XY CHEST PORTABLE on DOS: 06/13/25, XY CHEST PORTABLE on DOS: 06/12/25 FINDINGS: Lines and Tubes: Interval advancement of the endotracheal tube such that the tip now projects approxi mately 1.7 cm above the level of the bob. Remaining lines and tubes are unchanged. Lungs: Stable appearing mild bibasilar pulmonary airspace disease. Pleura: No effusion. No pneumothorax. Cardiomediastinal contours: Unremarkable Bones: Unremarkable IMPRESSION: 1. Stable appearing mild bibasilar pulmonary airspace disease. 2. Interval advancement of endotracheal tube such that the tip now projects approximately 1.7 cm abov e the level of the bob. Remaining lines and tubes unchanged.
[2025-06-17 07:02] LABS: Base Excess 0.3 mmol/L (-2.0-3.0)
[2025-06-17] MEDS ORDERED: POTASSIUM PHOSPHATE 22 MEQ in SODIUM CHL 0.9% 100 ML IV ONE (07:30)
[2025-06-17] MEDS: SODIUM PHOSPHATES 20 MEQ in SODIUM CHL 0.9% 100 ML IV ONE (08:30)
[2025-06-17] MEDS: MAGNESIUM SULFATE 1GM/100ML 100 ML IV ONE (08:36)
--- NOTE | 2025-06-17 09:11 | MEDREC ---
[facility] ASP Intervention Section I [facility] ASP Intervention: Deescalate AB based on CS, Review courses of therapy (PLEASE CONSIDER REVIEWING COURSE OF THERAPY BASED ON CULTURE RESULTS AND SUSCEPTIBILITIES ) ZEFERINO MADRID PHARMACIST Jun 17, 2025 09:11
[2025-06-17] MEDS: VANCOMYCIN 1GM/250ML KIT 250 ML IV ONE (09:15)
--- NOTE | 2025-06-17 20:06 | DVHPNRES ---
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 He developed septic shock secondary to pneumonia with sputum culture growing S. aureus, Acinetobacter baumannii and beta strep non-A. He is on vancomycin and meropenem. Also, his O2 saturations dropped to 6570% requiring intubation. Patient had bronchoscopy 06/15/25 and tube exchange, we will continue current care Objective vital signs Vital Sign Date Time Temp Pulse Resp B/P (MAP) Pulse Ox O2 Delivery O2 Flow Rate FiO2 06/17/25 19:58 100 33 121/66 (84) 100 30 06/17/25 19:29 Mechanical Ventilator 06/17/25 18:30 100.0 212.0 Total Intake and Output 06/16/25 06/16/25 06/17/25 15:00 23:00 07:00 Intake Total 314.125 ml 736.250 ml 498.926 ml Output Total 1225 ml 1800 ml Balance 314.125 ml -488.750 ml -1301.074 ml medications Current Medications Medications Dose Ordered Sig/Ezequiel Route Start Time Stop Time Status Last Admin Dose Admin Midazolam HCl 50 ml @ 1 mls/hr Q24H IV 06/10/25 13:45 06/16/25 01:08 4 MLS/HR Fentanyl Citrate 250 ml @ 2.5 mls/hr Q24H IV 06/10/25 14:45 06/17/25 18:23 15 MLS/HR Pantoprazole Sodium 40 mg BID IV 06/10/25 22:00 06/17/25 08:36 40 MG Levetiracetam 100 ml @ 400 mls/hr BID IV 06/10/25 22:00 06/17/25 08:36 400 MLS/HR Nitroglycerin 0.4 mg Q5MINP PRN SL 06/10/25 23:15 Cancel Morphine Sulfate 2 mg Q30M PRN IV 06/10/25 23:15 Cancel Nitroglycerin 0.4 mg Q5MINP PRN SL 06/11/25 00:15 Morphine Sulfate 2 mg Q30M PRN IV 06/11/25 00:15 Cancel Enoxaparin Sodium 40 mg DAILY SC 06/11/25 10:00 06/17/25 08:37 40 MG Diagnostic Test (Pha) 1 strip IQ4HR 06/11/25 16:00 Cancel Insulin Human Regular IQ4HR SC 06/11/25 16:00 Cancel Dextrose 50 ml UD PRN IV 06/11/25 13:15 Cancel Insulin Human Regular HS SC 06/11/25 22:00 Cancel Dextrose 50 ml UD PRN IV 06/11/25 14:15 Cancel Enteral Nutritional Formula 1,000 ml 40ML/HR GT 06/11/25 14:45 06/15/25 08:34 1,000 ML Diagnostic Test (Pha) 1 strip ACHS 06/11/25 22:00 06/17/25 14:26 1 STRIP Insulin Human Regular ACHS SC 06/11/25 22:00 06/17/25 10:54 3 UNITS Dextrose 50 ml UD PRN IV 06/11/25 17:30 Albuterol 2.5 mg Q6HR NEB 06/12/25 12:00 06/17/25 19:28 2.5 MG Ipratropium [place] 0.5 mg Q6HR NEB 06/12/25 12:00 06/17/25 19:27 0.5 MG Acetylcysteine 200 mg Q6HR NEB 06/12/25 12:00 06/17/25 19:28 200 MG Vancomycin HCl 0 ml @ 0 mls/hr UD IV 06/13/25 13:15 Meropenem 50 ml @ 17 mls/hr Q8HR IV 06/13/25 14:00 06/17/25 14:26 17 MLS/HR Norepinephrine Bitartrate 250 ml @ 1.875 mls/ hr Q24H IV 06/14/25 07:45 06/17/25 00:48 7.5 MLS/HR Sennosides 8.6 mg HS PO 06/15/25 22:00 06/16/25 21:40 8.6 MG Polyethylene Glycol 17 gm DAILY PO 06/16/25 10:00 9/1/25 08:36 17 GM Acetaminophen 650 mg Q6HP PRN PO 06/16/25 15:30 06/17/25 14:26 650 MG Vancomycin HCl 250 ml @ 250 mls/hr Q16H IV 06/18/25 01:00 Examination General Appearance: Intubated and sedated, pupils reactive Neck: Full Range of Motion, Non-Tender, Normal, Normal Inspection Respiratory: Mechanical ventilation sounds Cardiovascular: No Edema, No JVD, No Murmur, No Gallop, RIJ TLC with no signs of infection/bleeding Gastrointestinal: No Organomegaly, Non Tender, No Pulsatile Mass, Normal Bowel Sounds, Soft, PEG tube functioning with black stains on the tube Extremities: No pedal edema laboratory and microbiology Laboratory Tests 06/17/25 04:50 Test 06/17/25 04:50 Range/Units Serum Glucose 115 H 74-106 mg/dL Microbiology Date/Time Source Procedure Growth Status 06/14/25 15:08 Catheter Site Aerobic Culture - Preliminary Citrobacter freundii Resulted 06/10/25 13:05 Blood Blood Culture - Final NO GROWTH AFTER 5 DAYS OF INCUBATION. Complete 06/10/25 12:00 Sputum Gram Stain - Final Complete 06/10/25 12:00 Respiratory Culture - Final Staphylococcus aureus Acinetobacter baumannii Beta Strep Non-A, Non-B Complete Labs and/or images reviewed: Labs reviewed by me, Image(s) reviewed by me Problem List/Assessment/Plan Problem List/Assessment/Plan Neurological #History of seizure disorder #Previous COLLABORATIVE PHYSICIAN shunt. #History of neurocysticercosis. patient is on fentanyl CPAP trial was done, patient was tachypneic and has to be placed again on ac/vc levetiracetam IV BID Cardiovascular #Septic shock due to gram+/gram - pneumonia #Chronic diastolic heart failure. Levophed 3 mcg: decreased hold on GDMT, until shock resolved fevers: new blood cultures, sputum and urine cultures Respiratory: #Acute respiratory failure due to: #Septic shock due to gram+/gram - pneumonia #Aspiration pneumonia #COPD exacerbation #s/p bronchoscopy #sp tube exchange Reviewed ABGs and chest x-rays minimal vent settings staph aureus, Acinetobacter baumannii and Beta strep Non-A Non-B isolated: on vancomycin and meropenem IV CPAP trial was done, patient was tachypneic and has to be placed again on ac/vc bronchoscopy: The trachea is in normal caliber. The bob is sharp. The tracheobronchial tree of the right lung was examined to at least the first subsegmental level. The bronchial mucosa and anatomy in the right lung are normal. There are no endobronchial lesions. There were scant right lower lobe secretions. The left upper lobe, lingula, and left lower lobe were examined to at least the first subsegmental level. Bronchial mucosa and anatomy in the left upper lobe and lingula are normal. There were no endobronchial lesions. There were no secretions. There was no active bleeding at the completion of the procedure. new cultures ordered GI: #s/p PEG tube #H/o GERD #Transaminitis (Hyperbilirubinemia) PEG tube showing black secretions, culture of the tube was sent: Citrobacter freundii, meropenem IV bowel regimen started due to constipation Metabolic #DM type 2, hba1c 5,9 #Hypokalemia #Hypomagnesemia #Hypophosphatemia ISS K+ IV Mg2+ IV P IV Renal adequate urine output Heme/onc #Anemia normocytic, normochromic monitor Musculoskeletal #Bedbound status with functional paraplegia DVT prophylaxis: Enoxaparin PUD prophylaxis: Protonix RIJ: 06/10/25 Mock catheter PEG tube February 2025 ET tube exchange 06/15/25 120 minutes of critical care time Goals of care discussed with the patient's daughter at bedside for 20 minutes, full code Case discussed with Dr Pineda Plan discussed with: Daughter, Other (RN) My Orders My Orders Orders - CATHIE LEE RESIDENT Procedure Category Date Status Time Communication Order ORDERS 06/17/25 Transmitted 07:18 Blood Culture SOHAM 06/17/25 In Process 13:04 Urine Bacterial SOHAM 06/17/25 In Process Culture 13:04 Isolation Order ORDERS 06/17/25 Transmitted 17:46 Complete Blood Count LAB 06/18/25 Verified 04:00 Comprehensive LAB 06/18/25 Verified Metabolic Panel 04:00 Chest Xray 1 View XY 06/18/25 Logged 04:00 Abg W/ Co-Ox RT 06/18/25 Logged 04:00 Dietary Evaluation Review Comments: Nutrition Recommendation: 1) TF Jevity 1.2Cal @ 45ml/hr x 24hr (goal) along with Pro-stat 1 pk daily. Start @ 20ml/hr, increase 10ml/hr Q4H until goal is reached. TF @ goal volume along with Pro-stat provide 1396 kcal (100% energy needs), 75 gm protein (100% protein needs), 872 ml free water. 2) Water flush 130ml Q6H if allowed, adjust PRN 3) TPN if NPO >7 days 4) Monitor NPO status, lab values, wt trend, I/O Expected Outcomes/Goals: To meet >75% estimated needs Lab values to improve Fu 2-3 days Critical Care Time (mins): 120 Sepsis reassessment post fluid Is the fluid challenge complet: No (PROVIDER ORDERED NO FLUID CHALLENGE DUE TO RISK OF FLUID OVERLOAD) Date of Reassessment: Jun 10, 2025 Time of Reassessment: 183 Blood Culture Time: 1215 Time Antibiotics Given: 1215 Systolic BP: 94 Diastolic BP: 51 Blood Pressure Mean: 65 Respiration: 20 Respiratory Effort: Non-Labored, ET Tube Respiratory Pattern: Regular Oxygen Saturation: 95 Pulse Rate: 93 Pulse Location: Radial Pulse Strength: Normal Pulse Assessment Method: Weaving Machine Operator Pulse Rhythm: Regular Capillary Refill: < 3 seconds Heart Sounds: S1 & S2 Breath sounds: Diminished Skin Moisture: Dry Skin Tugor: WNL Skin Color: WNL Addendum Addendum Addendum I was physically present for the gama portions of the service provided to patient by THE RESIDENT. I have reviewed the documentation, discussed the case with resident and agree with the resident's documentation except as noted. Also the patient's clinical case was discussed with the patient's nurse. This medical document was created using an electronic medical record system with computerized dictation system. Although this document has been carefully reviewed, there might still be some phonetic and typographical errors. These areas are purely typographical due to imperfections of the software programs, and do not reflect any compromise in the patient's medical care. Late signature. Date of Service: Jun 17, 2025 Billing Provider: MIGUEL ÁNGEL PINEDA MD Common Visit Codes: 88444-IGNMSOUY CARE 30-74 MIN (120 minutes), [id number] CARE-EACH +30MIN Secondary Visit Codes: 09103-KYFOBXCV CARE PLAN 30 MINUTES (20 minutes) CATHIE LEE RESIDENT Jun 17, 2025 20:06 MIGUEL ÁNGEL PINEDA MD Jun 18, 2025 11:16
--- NOTE | 2025-06-17 22:40 | DVHPN2 ---
Progress Note - Dictate Date Seen: Jun 17, 2025 Has the PT tested + for MRSA If YES, has PT been informed?: Yes Medical Necessity Reason Pt with a Central, PICC or Fol: Yes The following are medically ne: Central Line, Mock Catheter Reason for mock catheter: Strict I&O Subjective Patient seen and examined at bedside. Intubated on mechanical ventilator. Overnight events reviewed. vital signs Vital Sign Date Time Temp Pulse Resp B/P (MAP) Pulse Ox O2 Delivery O2 Flow Rate FiO2 06/17/25 22:11 105 37 120/86 (97) 100 30 06/17/25 20:00 Mechanical Ventilator+ 06/17/25 18:30 100.0 212.0 Total Intake and Output 06/16/25 06/16/25 06/17/25 15:00 23:00 07:00 Intake Total 314.125 ml 736.250 ml 498.926 ml Output Total 1225 ml 1800 ml Balance 314.125 ml -488.750 ml -1301.074 ml medications Current Medications Medications Dose Ordered Sig/Ezequiel Route Start Time Stop Time Status Last Admin Dose Admin Midazolam HCl 50 ml @ 1 mls/hr Q24H IV 06/10/25 13:45 06/16/25 01:08 4 MLS/HR Fentanyl Citrate 250 ml @ 2.5 mls/hr Q24H IV 06/10/25 14:45 06/17/25 18:23 15 MLS/HR Pantoprazole Sodium 40 mg BID IV 06/10/25 22:00 06/17/25 22:08 40 MG Levetiracetam 100 ml @ 400 mls/hr BID IV 06/10/25 22:00 06/17/25 22:07 400 MLS/HR Nitroglycerin 0.4 mg Q5MINP PRN SL 06/10/25 23:15 Cancel Morphine Sulfate 2 mg Q30M PRN IV 06/10/25 23:15 Cancel Nitroglycerin 0.4 mg Q5MINP PRN SL 06/11/25 00:15 Morphine Sulfate 2 mg Q30M PRN IV 06/11/25 00:15 Cancel Enoxaparin Sodium 40 mg DAILY SC 06/11/25 10:00 06/17/25 08:37 40 MG Diagnostic Test (Pha) 1 strip IQ4HR 06/11/25 16:00 Cancel Insulin Human Regular IQ4HR SC 06/11/25 16:00 Cancel Dextrose 50 ml UD PRN IV 06/11/25 13:15 Cancel Insulin Human Regular HS SC 06/11/25 22:00 Cancel Dextrose 50 ml UD PRN IV 06/11/25 14:15 Cancel Enteral Nutritional Formula 1,000 ml 40ML/HR GT 06/11/25 14:45 06/15/25 08:34 1,000 ML Diagnostic Test (Pha) 1 strip ACHS 06/11/25 22:00 06/17/25 22:08 1 STRIP Insulin Human Regular ACHS SC 06/11/25 22:00 06/17/25 10:54 3 UNITS Dextrose 50 ml UD PRN IV 06/11/25 17:30 Albuterol 2.5 mg Q6HR NEB 06/12/25 12:00 06/17/25 19:28 2.5 MG Ipratropium [place] 0.5 mg Q6HR NEB 06/12/25 12:00 06/17/25 19:27 0.5 MG Acetylcysteine 200 mg Q6HR NEB 06/12/25 12:00 06/17/25 19:28 200 MG Vancomycin HCl 0 ml @ 0 mls/hr UD IV 06/13/25 13:15 Meropenem 50 ml @ 17 mls/hr Q8HR IV 06/13/25 14:00 06/17/25 22:07 17 MLS/HR Norepinephrine Bitartrate 250 ml @ 1.875 mls/ hr Q24H IV 06/14/25 07:45 06/17/25 00:48 7.5 MLS/HR Sennosides 8.6 mg HS PO 06/15/25 22:00 06/17/25 22:08 8.6 MG Polyethylene Glycol 17 gm DAILY PO 06/16/25 10:00 06/17/25 08:36 17 GM Acetaminophen 650 mg Q6HP PRN PO 06/16/25 15:30 06/17/25 14:26 650 MG Vancomycin HCl 250 ml @ 250 mls/hr Q16H IV 06/18/25 01:00 objective Gen.: Patient lying in bed in medical ICU. Intubated on mechanical ventilator. Head: Normocephalic, atraumatic. Eyes: PERRLA. Ears: Normal external anatomy. Throat: Endotracheal tube and orogastric tube in place. Neck: Supple, trachea midline. Chest: Transmitted breath sounds bilaterally. Decreased air entry bilaterally. No wheezing. Bibasilar crackles. Cardiovascular: Positive S1, positive S2. Regular rate and rhythm. Abdomen: Positive bowel sounds in all 4 quadrants. Soft, nontender, nondistended. : Mock in place. Normal external genitalia. Rectal: Deferred. Skin: Warm, dry. Intact. Extremities: 2+ radial pulses bilaterally. No lower extremity edema. Neuro: Off sedation. Paraplegia. laboratory and microbiology Laboratory Tests 06/17/25 04:50 Test 06/17/25 04:50 Range/Units Serum Glucose 115 H 74-106 mg/dL Assessment/Plan Impression: Acute hypoxic respiratory failure On mechanical ventilator Septic shock with pneumonia, ?aspiration COPD with exacerbation. History of seizure disorder Chronic diastolic heart failure. Bedbound status with functional paraplegia. Events: Remains on vent support On AC mode; RR 20, VT 400, PEEP 5, FiO2 30% ABG reviewed, compensated On Fentanyl drip for analgesia On pressors for hemodynamic support Levophed 3 mcg/min Titrate to keep mean arterial pressure greater than 65 mmHg. Improving pressor requirements Continue antibiotics Continue bronchodilators Mucomyst Monitor renal function Monitor electrolytes. Supplement as necessary. Magnesium and sodium phosphate supplementation Patient is awake, alert. Placed on CPAP with PS 10, PEEP 5, FiO2 30% Patient underwent bronchoscopy on 06/15/25 - no secretions. S/p ET tube exchange, Labs and imaging reviewed. Rest of plan as noted below. Plan: s/p intubation on mechanical ventilator. On AC mode; RR 20, VT 400, PEEP 5, FiO2 30% Titrate FIO2 to keep O2 saturation above 90%. VAP bundle. Daily ABG and CXR while intubated On pressors for hemodynamic support Titrate to keep mean arterial pressure greater than 65 mmHg. Continue bronchodilators. Continue antibiotics. F/u cultures Sputum cultures grew Acinetobacter. ET tube exchanged 06/15/25 due to Acinetobacter growth and recent fever. Antiepileptic with Keppra Monitor renal function Monitor electrolytes. Supplement as necessary. Monitor ins and outs. Maintain euvolemia. GI/DVT prophylaxis. Prognosis: Poor given patient's multiple co-morbidities. Condition: Critical Rest of plan per hospitalist and other consultants. A total of 35 minutes of critical care time was spent reviewing the patient record, examining the patient, making a diagnostic and therapeutic plan, discussing this plan with the medical personnel, following up on diagnostic studies and following the patient for clinical stability excluding any and all procedures. At least 50% of this time was spent in direct, nadt-hu-ough contact. Thank you Dr. Argueta for allowing me to participate in this patient's care. Further recommendations will depend on the patient's clinical course. Please do not hesitate to contact me if you have any questions or concerns. This medical document was created using an electronic medical record system with [employer] system. Although these documentations are being carefully reviewed, there may still be some phonetic and typographical changes. The errors are purely typographical, due to imperfection on the software program, and do not reflect any compromise in the patient's medical care. Dietary Evaluation Review Comments: Nutrition Recommendation: 1) TF Jevity 1.2Cal @ 45ml/hr x 24hr (goal) along with Pro-stat 1 pk daily. Start @ 20ml/hr, increase 10ml/hr Q4H until goal is reached. TF @ goal volume along with Pro-stat provide 1396 kcal (100% energy needs), 75 gm protein (100% protein needs), 872 ml free water. 2) Water flush 130ml Q6H if allowed, adjust PRN 3) TPN if NPO >7 days 4) Monitor NPO status, lab values, wt trend, I/O Expected Outcomes/Goals: To meet >75% estimated needs Lab values to improve Fu 2-3 days Plan discussed with: Other (RN) Critical Care Time(min): 35 Is the fluid challenge complet: No (PROVIDER ORDERED NO FLUID CHALLENGE DUE TO RISK OF FLUID OVERLOAD) Date of Reassessment: Jun 10, 2025 Time of Reassessment: 1830 Blood Culture Time: 1215 Time Antibiotics Given: 1215 Systolic BP: 94 Diastolic BP: 51 Blood Pressure Mean: 65 Respiration: 20 Respiratory Effort: Non-Labored, ET Tube Respiratory Pattern: Regular Oxygen Saturation: 95 Pulse Rate: 93 Pulse Location: Radial Pulse Strength: Normal Pulse Assessment Method: Project Internship Pulse Rhythm: Regular Capillary Refill: < 3 seconds Heart Sounds: S1 & S2 Breath sounds: Diminished Skin Moisture: Dry Skin Tugor: WNL Skin Color: WNL JESUS NAYAK MD Jun 17, 2025 22:40
[2025-06-18] VITALS (107 sets, daily range): BP systolic 83–168; BP diastolic 39–93; PULSE 76–116; RESP 14–40; TEMP 97.2–100.2; O2SAT 84–100
[2025-06-18] MEDS: VANCOMYCIN 1GM/250ML KIT 250 ML IV SCH (00:55)
[2025-06-18 05:05] LABS: Hematocrit 30.4 % (41.0-53.0); Hemoglobin 10.8 g/dL (13.5-17.5); Mean Corpuscular Hemoglobin 29.6 pg (28.0-32.0); Mean Corpuscular Volume 83.9 fL (80.0-100.0); Nucleated Red Blood Cells % 0.1 %
[2025-06-18 05:28] LABS: Alanine Aminotransferase 19 U/L (7-40); Alkaline Phosphatase 79 U/L (46-116); Calcium 10.2 mg/dL (8.7-10.4)
[2025-06-18 05:29] LABS: Albumin 3.7 g/dL (3.2-4.8); Anion Gap 11 (5-15); BUN/Creatinine Ratio 14.6 (10.0-20.0); Bilirubin, Total 0.4 mg/dL (0.2-1.0); Carbon Dioxide 26 mmol/L (20-31); Glucose 102 mg/dL (74-106); Total Protein 6.8 g/dL (5.7-8.2)
[2025-06-18 05:34] LABS: Blood Urea Nitrogen 6 mg/dL (9-23); Chloride 97 mmol/L (98-107); Potassium 2.9 mmol/L (3.5-5.1); Sodium 134 mmol/L (136-145)
--- NOTE | 2025-06-18 06:06 | DVH ---
CHEST RADIOGRAPH Indication: intubation Technique: Single frontal view of the chest was obtained COMPARISON: XY CHEST PORTABLE on DOS: 06/17/25, XY CHEST PORTABLE on DOS: 06/16/25, XY CHEST XRAY 1 VIEW on DOS: 06/15/25, XY CHEST PORTABLE on DOS: 06/14/25, XY CHEST PORTABLE on DOS: 06/13/25 FINDINGS: Lines and Tubes: Interval retraction of the endotracheal tube such that the tip now projects approxim ately 4.9 cm above the level of the bob. Remaining lines and tubes unchanged. Lungs: Clear Pleura: No effusion. No pneumothorax. Cardiomediastinal contours: Unremarkable Bones: Unremarkable IMPRESSION: 1. No acute disease. 2. Interval retraction of endotracheal tube as above. Remaining lines and tubes unchanged.
[2025-06-18] MEDS: POTASSIUM CHL 20MEQ/100ML 100 ML IV SCH ×2 (07:55→12:24)
--- NOTE | 2025-06-18 11:04 | DVHPN2 ---
Progress Note Date Seen: Jun 18, 2025 Has the PT tested + for MRSA If YES, has PT been informed?: Yes Medical Necessity Reason Pt with a Central, PICC or Fol: Yes The following are medically ne: Central Line, Mock Catheter Reason for mock catheter: Strict I&O Subjective Patient reports: No new complaints Review of Systems: HEENT:Normal, CVS:Normal, RESPIRATORY:Normal, GI:Normal, :Normal, MSK:Normal, NEURO:Normal Objective vital signs Vital Sign Date Time Temp Pulse Resp B/P (MAP) Pulse Ox O2 Delivery O2 Flow Rate FiO2 06/18/25 10:15 84 23 101/61 (74) 100 30 06/18/25 10:00 Mechanical Ventilator+ 06/18/25 06:30 98.1 208.6 Total Intake and Output 06/17/25 06/17/25 06/18/25 15:00 23:00 07:00 Intake Total 667.598 ml 573.750 ml 277.409 ml Output Total 1500 ml 1650 ml Balance 667.598 ml -926.250 ml -1372.591 ml medications Current Medications Medications Dose Ordered Sig/Ezequiel Route Start Time Stop Time Status Last Admin Dose Admin Midazolam HCl 50 ml @ 1 mls/hr Q24H IV 06/10/25 13:45 06/16/25 01:08 4 MLS/HR Fentanyl Citrate 250 ml @ 2.5 mls/hr Q24H IV 06/10/25 14:45 06/17/25 18:23 15 MLS/HR Pantoprazole Sodium 40 mg BID IV 06/10/25 22:00 06/18/25 10:16 40 MG Levetiracetam 100 ml @ 400 mls/hr BID IV 06/10/25 22:00 06/18/25 10:15 400 MLS/HR Nitroglycerin 0.4 mg Q5MINP PRN SL 06/10/25 23:15 Cancel Morphine Sulfate 2 mg Q30M PRN IV 06/10/25 23:15 Cancel Nitroglycerin 0.4 mg Q5MINP PRN SL 06/11/25 00:15 Morphine Sulfate 2 mg Q30M PRN IV 06/11/25 00:15 Cancel Enoxaparin Sodium 40 mg DAILY SC 06/11/25 10:00 06/18/25 10:16 40 MG Diagnostic Test (Pha) 1 strip IQ4HR 06/11/25 16:00 Cancel Insulin Human Regular IQ4HR SC 06/11/25 16:00 Cancel Dextrose 50 ml UD PRN IV 06/11/25 13:15 Cancel Insulin Human Regular HS SC 06/11/25 22:00 Cancel Dextrose 50 ml UD PRN IV 06/11/25 14:15 Cancel Enteral Nutritional Formula 1,000 ml 40ML/HR GT 06/11/25 14:45 06/15/25 08:34 1,000 ML Diagnostic Test (Pha) 1 strip ACHS 06/11/25 22:00 06/18/25 06:48 1 STRIP Insulin Human Regular ACHS SC 06/11/25 22:00 06/17/25 10:54 3 UNITS Dextrose 50 ml UD PRN IV 06/11/25 17:30 Albuterol 2.5 mg Q6HR NEB 06/12/25 12:00 06/18/25 06:16 2.5 MG Ipratropium [place] 0.5 mg Q6HR NEB 06/12/25 12:00 06/18/25 06:16 0.5 MG Acetylcysteine 200 mg Q6HR NEB 06/12/25 12:00 06/18/25 06:16 200 MG Vancomycin HCl 0 ml @ 0 mls/hr UD IV 06/13/25 13:15 Meropenem 50 ml @ 17 mls/hr Q8HR IV 06/13/25 14:00 06/18/25 06:39 17 MLS/HR Norepinephrine Bitartrate 250 ml @ 1.875 mls/ hr Q24H IV 06/14/25 07:45 06/17/25 00:48 7.5 MLS/HR Sennosides 8.6 mg HS PO 06/15/25 22:00 06/17/25 22:08 8.6 MG Polyethylene Glycol 17 gm DAILY PO 06/16/25 10:00 06/18/25 10:16 17 GM Acetaminophen 650 mg Q6HP PRN PO 06/16/25 15:30 06/18/25 03:23 650 MG Vancomycin HCl 250 ml @ 250 mls/hr Q16H IV 06/18/25 01:00 06/18/25 00:55 250 MLS/HR Examination: GENERAL:Normal, HEENT:Normal, NECK:Normal, LUNGS:Normal, LUNGS:Abnormal (intubated), CVS:Normal, ABDOMEN:Normal, ABDOMEN:Abnormal (peg tube), MSK:Normal, SKIN:Normal, NEURO:Normal, :Normal laboratory and microbiology Laboratory Tests 06/18/25 04:35 Test 06/18/25 04:35 Range/Units Serum Glucose 102 74-106 mg/dL Microbiology Date/Time Source Procedure Growth Status 06/14/25 15:08 Catheter Site Aerobic Culture - Preliminary Citrobacter freundii Resulted 06/10/25 13:05 Blood Blood Culture - Final NO GROWTH AFTER 5 DAYS OF INCUBATION. 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 * History of neurocysticercosis. * COPD with exacerbation. * Chronic diastolic heart failure. * Bedbound status with functional paraplegia. * History of PEG feedings * uti due to c freundi: iv meropenem long dw family- reviewed labs and plan of care Plan discussed with: Other (rn) My Orders My Orders Orders - GABRIELLE BOLAÑOS MD Procedure Category Date Status Time Vancomycin 1gm/250ml PHA 06/18/25 In Process Kit 01:00 Vancomycin,Trough LAB 06/19/25 Verified 08:00 Vancomycin Per ZARINA 06/19/25 In Process Pharmacy Protoc 09:00 Creatinine LAB 06/19/25 Verified 08:00 Potassium Chl Ron PHA 06/18/25 Verified KCL 11:00 Basic Metabolic Panel LAB 06/19/25 Verified 06:00 Complete Blood Count LAB 06/19/25 Verified 06:00 Magnesium LAB 06/19/25 Verified 05:00 Phosphorus LAB 06/19/25 Verified 06:00 Chest Portable XY 06/19/25 Verified 06:00 Dietary Evaluation Review Comments: Nutrition Recommendation: 1) TF Jevity 1.2Cal @ 45ml/hr x 24hr (goal) along with Pro-stat 1 pk daily. Start @ 20ml/hr, increase 10ml/hr Q4H until goal is reached. TF @ goal volume along with Pro-stat provide 1396 kcal (100% energy needs), 75 gm protein (100% protein needs), 872 ml free water. 2) Water flush 130ml Q6H if allowed, adjust PRN 3) TPN if NPO >7 days 4) Monitor NPO status, lab values, wt trend, I/O Expected Outcomes/Goals: To meet >75% estimated needs Lab values to improve Fu 2-3 days Critical Care Time (mins): 81 (critical care time excluding procedures and including monitoring during cpap trial is 81 mins) Sepsis reassessment post fluid Is the fluid challenge complet: No (PROVIDER ORDERED NO FLUID CHALLENGE DUE TO RISK OF FLUID OVERLOAD) Date of Reassessment: Jun 10, 2025 Time of Reassessment: 183 Blood Culture Time: 1215 Time Antibiotics Given: 1215 Systolic BP: 94 Diastolic BP: 51 Blood Pressure Mean: 65 Respiration: 20 Respiratory Effort: Non-Labored, ET Tube Respiratory Pattern: Regular Oxygen Saturation: 95 Pulse Rate: 93 Pulse Location: Radial Pulse Strength: Normal Pulse Assessment Method: Weigher Bulker Pulse Rhythm: Regular Capillary Refill: < 3 seconds Heart Sounds: S1 & S2 Breath sounds: Diminished Skin Moisture: Dry Skin Tugor: WNL Skin Color: WNL Date of Service: Jun 18, 2025 Billing Provider: GABRIELLE BOLAÑOS MD Common Visit Codes: [id number] CARE 30-74 MIN, [id number] CARE-EACH +30MIN GABRIELLE BOLAÑOS MD Jun 18, 2025 11:04
[2025-06-18 12:24] LABS: Base Excess 1.3 mmol/L (-2.0-3.0)
[2025-06-18] MEDS: FUROSEMIDE 20 MG/2 ML VIAL IV ONE (15:21)
[2025-06-18] MEDS: FUROSEMIDE 20 MG/2 ML VIAL ONE (15:22)
[2025-06-18] MEDS ORDERED: methylPREDNISolone SOD SUCC 40 MG/ML VL IV ONE (15:45)
[2025-06-18] MEDS: methylPREDNISolone SOD SUCC 40 MG/ML VL ONE (15:48)
[2025-06-18 15:53] LABS: Base Excess -2.1 mmol/L (-2.0-3.0)
[2025-06-18] MEDS: methylPREDNISolone SOD SUCC 40 MG/ML VL IV ONE ×2 (15:53→16:17)
[2025-06-18] MEDS ORDERED: LORazepam 2MG/ML-1ML VIAL IV ONE (16:00)
[2025-06-18] MEDS ORDERED: LORazepam 2MG/ML-1ML VIAL IV PRN (16:00)
[2025-06-18] MEDS: LORazepam 2MG/ML-1ML VIAL ONE (16:06)
[2025-06-18] MEDS: LORazepam 2MG/ML-1ML VIAL IV ONE (16:18)
[2025-06-18] MEDS: ROCURONIUM 10MG/ML 10ML VIAL IV ONE ×2 (16:33→16:42)
[2025-06-18] MEDS: ETOMIDATE (2MG/ML) 20ML VIAL IV ONE ×2 (16:33→16:36)
--- NOTE | 2025-06-18 16:48 | DVHNC2 ---
Intubation Indication: Respiratory Insufficiency Prep: Preoxygenation Pretreated with: Analgesia, Sedation Medicated with: Nothing Intubation Approach: Orotracheal Intubation size: cm (8) Informed consent obtained: No Risks/benefits/alt described: No Date of Service: Jun 18, 2025 Billing Provider: GABRIELLE BOLAÑOS MD Common Visit Codes: PROCEDURE ONLY Procedure Codes: [id number] GABRIELLE BOLAÑOS MD Jun 18, 2025 16:48
--- NOTE | 2025-06-18 18:00 | DVH ---
CHEST RADIOGRAPH Indication: INTUBATION Technique: Single frontal view of the chest was obtained Comparison: XY CHEST XRAY 1 VIEW on DOS: 06/18/25, XY CHEST PORTABLE on DOS: 06/17/25, XY CHEST PORTABLE on DOS: 06/16/25 FINDINGS: Lines and Tubes: Endotracheal tube and right IJ approach central venous catheter in satisfactory posi tion. Lungs: Bilateral lower lung zone opacities. Pleura: No effusion. No pneumothorax. Cardiomediastinal contours: Unremarkable Bones: No acute osseous abnormality. IMPRESSION: Bilateral lower lung zone pneumonia/atelectasis. Endotracheal tube and right IJ approach central venous catheter in satisfactory position.
[2025-06-18] MEDS: ACETYLCYSTEINE 20%(200MG/ML) SOL 4ML ONE ×2 (19:24→23:59)
[2025-06-18 20:16] LABS: Base Excess -0.8 mmol/L (-2.0-3.0)
[2025-06-18] MEDS: methylPREDNISolone SOD SUCC 40 MG/ML VL IV SCH (21:44)
[2025-06-19] VITALS (106 sets, daily range): BP systolic 79–134; BP diastolic 42–80; PULSE 71–120; RESP 15–26; TEMP 97–100; O2SAT 97–100
[2025-06-19] MEDS: LORazepam 2MG/ML-1ML VIAL IV ONE (01:00)
[2025-06-19 05:18] LABS: Hematocrit 32.8 % (41.0-53.0); Hemoglobin 11.1 g/dL (13.5-17.5); Mean Corpuscular Hemoglobin 29.8 pg (28.0-32.0); Mean Corpuscular Volume 88.2 fL (80.0-100.0); Nucleated Red Blood Cells % 0.0 %
[2025-06-19 05:22] LABS: Chloride 100 mmol/L (98-107); Potassium 4.4 mmol/L (3.5-5.1)
[2025-06-19 05:23] LABS: Anion Gap 10 (5-15); Carbon Dioxide 26 mmol/L (20-31)
[2025-06-19 05:29] LABS: BUN/Creatinine Ratio 13.0 (10.0-20.0); Blood Urea Nitrogen 7 mg/dL (9-23); Calcium 10.5 mg/dL (8.7-10.4); Glucose 161 mg/dL (74-106); Magnesium 1.7 mg/dL (1.6-2.6); Sodium 136 mmol/L (136-145)
--- NOTE | 2025-06-19 06:00 | DVH ---
CHEST RADIOGRAPH Indication: RESP FAILURE Technique: Single frontal view of the chest was obtained COMPARISON: XY CHEST PORTABLE on DOS: 06/18/25, XY CHEST XRAY 1 VIEW on DOS: 06/18/25, XY CHEST PORTABLE on DOS: 06/17/25, XY CHEST PORTABLE on DOS: 06/16/25, XY CHEST XRAY 1 VIEW on DOS: 06/15/25 FINDINGS: Lines and Tubes: Slight interval retraction of the endotracheal tube such that the tip now projects a pproximately 5.3 cm above the level of the bob. Right internal jugular central venous catheter unc hanged. Lungs: Clear Pleura: No effusion. No pneumothorax. Cardiomediastinal contours: Unremarkable Bones: Unremarkable IMPRESSION: 1. No acute disease. 2. Slight interval retraction of the endotracheal tube as above. Right internal jugular central veno us catheter unchanged.
[2025-06-19 07:34] LABS: Base Excess 1.7 mmol/L (-2.0-3.0)
--- NOTE | 2025-06-19 11:51 | DVHPN2 ---
Progress Note Date Seen: Jun 19, 2025 Has the PT tested + for MRSA If YES, has PT been informed?: Yes Medical Necessity Reason Pt with a Central, PICC or Fol: Yes The following are medically ne: Central Line, Mock Catheter Reason for mock catheter: Strict I&O Subjective Patient reports: No new complaints Review of Systems: HEENT:Normal, CVS:Normal, RESPIRATORY:Normal, GI:Normal, :Normal, MSK:Normal, NEURO:Normal Objective vital signs Vital Sign Date Time Temp Pulse Resp B/P (MAP) Pulse Ox O2 Delivery O2 Flow Rate FiO2 06/19/25 10:19 109/58 06/19/25 09:24 105 26 99 30 06/19/25 07:30 99.0 210.2 06/19/25 06:00 Mechanical Ventilator+ 06/18/25 14:38 10 Total Intake and Output 06/18/25 06/18/25 06/19/25 15:00 23:00 07:00 Intake Total 267.497 ml 657.750 ml 616.550 ml Output Total 1000 ml 1050 ml Balance 267.497 ml -342.250 ml -433.450 ml medications Current Medications Medications Dose Ordered Sig/Ezequiel Route Start Time Stop Time Status Last Admin Dose Admin Midazolam HCl 50 ml @ 1 mls/hr Q24H IV 06/10/25 13:45 06/16/25 01:08 4 MLS/HR Fentanyl Citrate 250 ml @ 2.5 mls/hr Q24H IV 06/10/25 14:45 06/18/25 23:26 15 MLS/HR Pantoprazole Sodium 40 mg BID IV 06/10/25 22:00 06/19/25 10:13 40 MG Levetiracetam 100 ml @ 400 mls/hr BID IV 06/10/25 22:00 06/19/25 10:13 400 MLS/HR Nitroglycerin 0.4 mg Q5MINP PRN SL 06/10/25 23:15 Cancel Morphine Sulfate 2 mg Q30M PRN IV 06/10/25 23:15 Cancel Nitroglycerin 0.4 mg Q5MINP PRN SL 06/11/25 00:15 Morphine Sulfate 2 mg Q30M PRN IV 06/11/25 00:15 Cancel Enoxaparin Sodium 40 mg DAILY SC 06/11/25 10:00 06/19/25 10:15 40 MG Diagnostic Test (Pha) 1 strip IQ4HR 06/11/25 16:00 Cancel Insulin Human Regular IQ4HR SC 06/11/25 16:00 Cancel Dextrose 50 ml UD PRN IV 06/11/25 13:15 Cancel Insulin Human Regular HS SC 06/11/25 22:00 Cancel Dextrose 50 ml UD PRN IV 06/11/25 14:15 Cancel Enteral Nutritional Formula 1,000 ml 40ML/HR GT 06/11/25 14:45 06/15/25 08:34 1,000 ML Diagnostic Test (Pha) 1 strip ACHS 06/11/25 22:00 06/19/25 06:11 1 STRIP Insulin Human Regular ACHS SC 06/11/25 22:00 06/19/25 06:10 2 UNITS Dextrose 50 ml UD PRN IV 06/11/25 17:30 Albuterol 2.5 mg Q6HR NEB 06/12/25 12:00 06/19/25 05:45 2.5 MG Ipratropium [place] 0.5 mg Q6HR NEB 06/12/25 12:00 06/19/25 05:45 0.5 MG Acetylcysteine 200 mg Q6HR NEB 06/12/25 12:00 06/19/25 05:46 200 MG Vancomycin HCl 0 ml @ 0 mls/hr UD IV 06/13/25 13:15 Meropenem 50 ml @ 17 mls/hr Q8HR IV 06/13/25 14:00 06/19/25 06:11 17 MLS/HR Norepinephrine Bitartrate 250 ml @ 1.875 mls/ hr Q24H IV 06/14/25 07:45 06/19/25 10:19 7.5 MLS/HR Sennosides 8.6 mg HS PO 06/15/25 22:00 06/18/25 21:44 8.6 MG Polyethylene Glycol 17 gm DAILY PO 06/16/25 10:00 06/19/25 10:14 17 GM Acetaminophen 650 mg Q6HP PRN PO 06/16/25 15:30 06/18/25 23:27 650 MG Vancomycin HCl 250 ml @ 250 mls/hr Q16H IV 06/18/25 01:00 06/19/25 10:12 250 MLS/HR Methylprednisolone Sodium Succinate 40 mg BID IV 06/18/25 22:00 06/19/25 10:14 40 MG Magnesium Sulfate/ Dextrose 100 ml @ 100 mls/hr Q1HR IV 06/19/25 12:00 06/19/25 13:59 Lactulose 30 ml Q6HR PO 06/19/25 12:00 UNV Examination: GENERAL:Normal, HEENT:Normal, NECK:Normal, LUNGS:Normal, LUNGS:Abnormal (intubated), CVS:Normal, ABDOMEN:Normal, ABDOMEN:Abnormal (peg+), MSK:Normal, SKIN:Normal, NEURO:Normal, :Normal laboratory and microbiology Laboratory Tests 06/19/25 04:40 Test 06/19/25 04:40 Range/Units Serum Glucose 161 H 74-106 mg/dL Microbiology Date/Time Source Procedure Growth Status 06/18/25 16:00 Sputum Gram Stain - Final Resulted 06/18/25 16:00 Sputum Respiratory Culture - Preliminary Resulted 06/17/25 14:35 Blood Blood Culture - Preliminary NO GROWTH AFTER 24 HOURS OF INCUBATION. 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 * History of neurocysticercosis. * COPD with exacerbation: iv steroids * Chronic diastolic heart failure. * Bedbound status with functional paraplegia. * History of PEG feedings * uti due to c freundi: iv meropenem long dw family regards further treatment including trach-they will discuss and let me know long dw family- reviewed labs and plan of care Plan discussed with: Spouse, Daughter, Son My Orders My Orders Orders - GABRIELLE BOLAÑOS MD Procedure Category Date Status Time Extubate ZARINA 06/18/25 In Process 12:39 BIPAP RT 06/18/25 Logged 15:31 Abg W/ Co-Ox RT 06/18/25 Logged 16:30 Methylprednisolone PHA 06/18/25 In Process Sod Succ (Solu Medrol 22:00 Chest Portable XY 06/18/25 Resulted 16:37 Abg W/ Co-Ox RT 06/18/25 Logged 18:15 Respiratory Culture SOHAM 06/18/25 In Process W/ Gs 16:47 Ventilator Orders RT 06/18/25 Transmitted 16:47 Communication Order ORDERS 06/18/25 Transmitted 16:55 Abg W/ Co-Ox RT 06/18/25 Logged 19:29 Abg W/ Co-Ox RT 06/19/25 Logged 06:00 Vancomycin,Trough LAB 06/21/25 Verified 08:00 Creatinine LAB 06/20/25 Verified 04:00 Vancomycin Per ZARINA 06/20/25 In Process Pharmacy Protoc 01:00 Magnesium Sulfate PHA 06/19/25 In Process 1gm/100ml 12:00 Sodium Phosphates PHA 06/19/25 In Process 11:15 * Picc Line Consult CONS 06/19/25 Transmitted 11:40 D/C Tlc ZARINA 06/19/25 In Process 11:40 Fleet Enema Adult PHA 06/19/25 Logged 11:45 Lactulose Oral PHA 06/19/25 Logged 12:00 Basic Metabolic Panel LAB 06/20/25 Verified 06:00 Complete Blood Count LAB 06/20/25 Verified 06:00 Magnesium LAB 06/20/25 Verified 05:00 Phosphorus LAB 06/20/25 Verified 06:00 Chest Portable XY 06/20/25 Logged 06:00 Abg W/ Co-Ox RT 06/20/25 Logged 06:00 Dietary Evaluation Review Comments: Nutrition Recommendation: 1) TF Jevity 1.2Cal @ 45ml/hr x 24hr (goal) along with Pro-stat 1 pk daily. Start @ 20ml/hr, increase 10ml/hr Q4H until goal is reached. TF @ goal volume along with Pro-stat provide 1396 kcal (100% energy needs), 75 gm protein (100% protein needs), 872 ml free water. 2) Water flush 130ml Q6H if allowed, adjust PRN 3) TPN if NPO >7 days 4) Monitor NPO status, lab values, wt trend, I/O Expected Outcomes/Goals: To meet >75% estimated needs Lab values to improve Fu 2-3 days Critical Care Time (mins): 82 (critical care time spent including family meeting and excluding procedures is 82 mins) Sepsis reassessment post fluid Is the fluid challenge complet: No (PROVIDER ORDERED NO FLUID CHALLENGE DUE TO RISK OF FLUID OVERLOAD) Date of Reassessment: Jun 10, 2025 Time of Reassessment: 1829 Blood Culture Time: 1215 Time Antibiotics Given: 1215 Systolic BP: 94 Diastolic BP: 51 Blood Pressure Mean: 65 Respiration: 20 Respiratory Effort: Non-Labored, ET Tube Respiratory Pattern: Regular Oxygen Saturation: 95 Pulse Rate: 93 Pulse Location: Radial Pulse Strength: Normal Pulse Assessment Method: Cash Management Officer Pulse Rhythm: Regular Capillary Refill: < 3 seconds Heart Sounds: S1 & S2 Breath sounds: Diminished Skin Moisture: Dry Skin Tugor: WNL Skin Color: WNL Date of Service: Jun 19, 2025 Billing Provider: GABRIELLE BOLAÑOS MD Common Visit Codes: [id number] CARE 30-74 MIN, [id number] CARE-EACH +30MIN GABRIELLE BOLAÑOS MD Jun 19, 2025 11:51
[2025-06-19] MEDS: LACTULOSE 20Gm/30ML SOLN PO SCH (13:02)
[2025-06-19] MEDS: MAGNESIUM SULFATE 1GM/100ML 100 ML IV SCH (13:02)
[2025-06-19] MEDS: FLEET ENEMA(ADULT) 135 ML PR ONE (13:02)
[2025-06-19 13:59] LABS: INR 1.06 (0.9-1.15); Partial Thromboplastin Time 31.4 SEC (24.5-34.5); Prothrombin Time 11.2 sec (9.3-11.8)
[2025-06-19] MEDS: LIDOCAINE 1% (LOCAL ANESTH.) PF 5ml SDV ID ONE (15:30)
[2025-06-19] MEDS: SODIUM PHOSPHATES 40 MEQ in D5W 5% 250 ML IV ONE (15:30)
[2025-06-19] MEDS: SODIUM CHLOR 0.9% PF (SALINE LOCK) 10ML VIAL/SYR IV SCH (21:39)
[2025-06-20] VITALS (106 sets, daily range): BP systolic 79–141; BP diastolic 41–81; PULSE 71–94; RESP 15–23; TEMP 96.1–98.6; O2SAT 95–100
[2025-06-20 05:40] LABS: Hematocrit 30.1 % (41.0-53.0); Hemoglobin 10.4 g/dL (13.5-17.5); Mean Corpuscular Hemoglobin 29.6 pg (28.0-32.0); Mean Corpuscular Volume 85.4 fL (80.0-100.0); Nucleated Red Blood Cells % 0.0 %
--- NOTE | 2025-06-20 05:58 | DVH ---
CHEST RADIOGRAPH Indication: RESP FAILURE Technique: Single frontal view of the chest was obtained COMPARISON: XY CHEST PORTABLE on DOS: 06/19/25, XY CHEST PORTABLE on DOS: 06/18/25, XY CHEST XRAY 1 VIEW on DOS: 06/18/25, XY CHEST PORTABLE on DOS: 06/17/25, XY CHEST PORTABLE on DOS: 06/16/25, XY CHEST PORTABL E on DOS: 06/16/25 FINDINGS: Lines and Tubes: Endotracheal tube, enteric catheter and right central venous catheter in satisfactor y position Lungs: Congestion. Left lower lobe airspace disease. Pleura: No effusion. No pneumothorax. Cardiomediastinal contours: Unremarkable Bones: Unremarkable IMPRESSION: Lines and tubes in satisfactory position. No significant interval change.
[2025-06-20 06:52] LABS: Base Excess 0.7 mmol/L (-2.0-3.0)
[2025-06-20 09:33] LABS: Anion Gap 11 (5-15); Carbon Dioxide 28 mmol/L (20-31); Chloride 105 mmol/L (98-107); Sodium 144 mmol/L (136-145)
[2025-06-20 09:34] LABS: Calcium 9.9 mg/dL (8.7-10.4); Potassium 2.6 mmol/L (3.5-5.1)
[2025-06-20 09:39] LABS: BUN/Creatinine Ratio 17.0 (10.0-20.0)
[2025-06-20 09:40] LABS: Magnesium 2.0 mg/dL (1.6-2.6)
[2025-06-20 09:42] LABS: Blood Urea Nitrogen 8 mg/dL (9-23); Glucose 128 mg/dL (74-106)
[2025-06-20] MEDS: POTASSIUM CHL 20MEQ/100ML 100 ML IV SCH (11:45)
[2025-06-20] MEDS: POTASSIUM EFFERVESENT TAB 25 MEQ GT ONE (11:45)
--- NOTE | 2025-06-20 14:39 | DVHPN2 ---
Progress Note Date Seen: Jun 20, 2025 Has the PT tested + for MRSA If YES, has PT been informed?: Yes Medical Necessity Reason Pt with a Central, PICC or Fol: Yes The following are medically ne: PICC Line, Mock Catheter Reason for mock catheter: Strict I&O Subjective Patient reports: No new complaints Review of Systems: HEENT:Normal, CVS:Normal, RESPIRATORY:Normal, GI:Normal, :Normal, MSK:Normal, NEURO:Normal Objective vital signs Vital Sign Date Time Temp Pulse Resp B/P (MAP) Pulse Ox O2 Delivery O2 Flow Rate FiO2 06/20/25 13:30 77 20 94/49 (64) 97 30 06/20/25 12:00 Mechanical Ventilator+ 06/20/25 11:15 97.7 207.9 06/18/25 14:38 10 Total Intake and Output 06/19/25 06/19/25 06/20/25 15:00 23:00 07:00 Intake Total 555.625 ml 729.375 ml 819.625 ml Output Total 700 ml 600 ml Balance 555.625 ml 29.375 ml 219.625 ml medications Current Medications Medications Dose Ordered Sig/Ezequiel Route Start Time Stop Time Status Last Admin Dose Admin Midazolam HCl 50 ml @ 1 mls/hr Q24H IV 06/10/25 13:45 06/20/25 10:21 5 MLS/HR Fentanyl Citrate 250 ml @ 2.5 mls/hr Q24H IV 06/10/25 14:45 06/20/25 00:22 15 MLS/HR Pantoprazole Sodium 40 mg BID IV 06/10/25 22:00 06/20/25 10:23 40 MG Levetiracetam 100 ml @ 400 mls/hr BID IV 06/10/25 22:00 06/20/25 10:22 400 MLS/HR Nitroglycerin 0.4 mg Q5MINP PRN SL 06/10/25 23:15 Cancel Morphine Sulfate 2 mg Q30M PRN IV 06/10/25 23:15 Cancel Nitroglycerin 0.4 mg Q5MINP PRN SL 06/11/25 00:15 Morphine Sulfate 2 mg Q30M PRN IV 06/11/25 00:15 Cancel Enoxaparin Sodium 40 mg DAILY SC 06/11/25 10:00 06/20/25 10:22 40 MG Diagnostic Test (Pha) 1 strip IQ4HR 06/11/25 16:00 Cancel Insulin Human Regular IQ4HR SC 06/11/25 16:00 Cancel Dextrose 50 ml UD PRN IV 06/11/25 13:15 Cancel Insulin Human Regular HS SC 06/11/25 22:00 Cancel Dextrose 50 ml UD PRN IV 06/11/25 14:15 Cancel Enteral Nutritional Formula 1,000 ml 40ML/HR GT 06/11/25 14:45 06/20/25 10:25 1,000 ML Diagnostic Test (Pha) 1 strip ACHS 06/11/25 22:00 06/20/25 11:30 1 STRIP Insulin Human Regular ACHS SC 06/11/25 22:00 06/20/25 13:10 2 UNITS Dextrose 50 ml UD PRN IV 06/11/25 17:30 Albuterol 2.5 mg Q6HR NEB 06/12/25 12:00 06/20/25 11:31 2.5 MG Ipratropium [place] 0.5 mg Q6HR NEB 06/12/25 12:00 06/20/25 11:31 0.5 MG Acetylcysteine 200 mg Q6HR NEB 06/12/25 12:00 06/20/25 11:31 200 MG Vancomycin HCl 0 ml @ 0 mls/hr UD IV 06/13/25 13:15 Meropenem 50 ml @ 17 mls/hr Q8HR IV 06/13/25 14:00 06/20/25 13:25 17 MLS/HR Norepinephrine Bitartrate 250 ml @ 1.875 mls/ hr Q24H IV 06/14/25 07:45 06/19/25 10:19 7.5 MLS/HR Sennosides 8.6 mg HS PO 06/15/25 22:00 06/19/25 21:38 8.6 MG Polyethylene Glycol 17 gm DAILY PO 06/16/25 10:00 06/20/25 10:18 17 GM Acetaminophen 650 mg Q6HP PRN PO 06/16/25 15:30 06/18/25 23:27 650 MG Vancomycin HCl 250 ml @ 250 mls/hr Q16H IV 06/18/25 01:00 06/20/25 01:33 250 MLS/HR Methylprednisolone Sodium Succinate 40 mg BID IV 06/18/25 22:00 06/20/25 10:25 40 MG Lactulose 30 ml Q6HR PO 06/19/25 12:00 06/20/25 12:00 30 ML Sodium Chloride 10 ml QSHIFT@10,22 IV 06/19/25 22:00 06/20/25 10:23 10 ML Potassium Chloride 100 ml @ 50 mls/hr Q2H IV 06/20/25 11:45 06/20/25 17:44 06/20/25 11:45 50 MLS/HR Examination: GENERAL:Normal, HEENT:Normal, NECK:Normal, LUNGS:Normal, LUNGS:Abnormal (intubated), CVS:Normal, ABDOMEN:Normal, ABDOMEN:Abnormal (peg+), MSK:Normal, SKIN:Normal, NEURO:Normal, :Normal laboratory and microbiology Laboratory Tests 06/20/25 09:05 06/20/25 04:30 Test 06/20/25 09:05 Range/Units Serum Glucose 128 H 74-106 mg/dL Microbiology Date/Time Source Procedure Growth Status 06/18/25 16:00 Sputum Gram Stain - Final Resulted 06/18/25 16:00 Sputum Respiratory Culture - Preliminary Resulted 06/17/25 14:35 Blood Blood Culture - Preliminary NO GROWTH AFTER 48 HOURS OF INCUBATION. 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 * History of neurocysticercosis. * COPD with exacerbation: iv steroids * Chronic diastolic heart failure. * Bedbound status with functional paraplegia. * History of PEG feedings * uti due to c freundi: iv bactrim long dw family regards further treatment long dw family- reviewed labs and plan of care Plan discussed with: Spouse, Daughter My Orders My Orders Orders - GABRIELLE BOLAÑOS MD Procedure Category Date Status Time Nursing Protocol Picc ZARINA 06/19/25 In Process 15:18 Change Dressing Prn ZARINA 06/19/25 In Process 15:18 PICC BD 06/19/25 Transmitted 15:18 Sodium Chloride Lock PHA 06/19/25 In Process (Saline Lock Ns) 22:00 Do Not Use Picc For [facility] 06/19/25 In Process Blood Cult 15:18 May Draw Blood From [facility] 06/19/25 In Process Picc 15:18 Ok To Use Picc [facility] 06/19/25 In Process 15:18 Change Picc Dressing [facility] 06/19/25 In Process Q7 Days 15:18 Us Guided Vascular US 06/19/25 Logged Access 15:18 Creatinine LAB 06/21/25 Verified 04:00 Potassium Chl PHA 06/20/25 In Process 20meq/100ml 11:45 Lactulose Oral PHA 06/21/25 Verified 10:00 * Surgical Consult CONS 06/20/25 Verified Bactrim Iv Septra PHA 06/20/25 Verified Sulfam/Trim 14:45 Basic Metabolic Panel LAB 06/21/25 Verified 06:00 Complete Blood Count LAB 06/21/25 Verified 06:00 Chest Portable XY 06/21/25 Verified 06:00 Abg W/ Co-Ox RT 06/21/25 Verified 06:00 Dietary Evaluation Review Comments: Nutrition Recommendation: 1) TF Jevity 1.2Cal @ 45ml/hr x 24hr (goal) along with Pro-stat 1 pk daily. Start @ 20ml/hr, increase 10ml/hr Q4H until goal is reached. TF @ goal volume along with Pro-stat provide 1396 kcal (100% energy needs), 75 gm protein (100% protein needs), 872 ml free water. 2) Water flush 130ml Q6H if allowed, adjust PRN 3) TPN if NPO >7 days 4) Monitor NPO status, lab values, wt trend, I/O Expected Outcomes/Goals: To meet >75% estimated needs Lab values to improve Fu 2-3 days Critical Care Time (mins): 61 (critical care time excluding procedures is 61 mins) Sepsis reassessment post fluid Is the fluid challenge complet: No (PROVIDER ORDERED NO FLUID CHALLENGE DUE TO RISK OF FLUID OVERLOAD) Date of Reassessment: Jun 10, 2025 Time of Reassessment: 183 Blood Culture Time: 1215 Time Antibiotics Given: 1215 Systolic BP: 94 Diastolic BP: 51 Blood Pressure Mean: 65 Respiration: 20 Respiratory Effort: Non-Labored, ET Tube Respiratory Pattern: Regular Oxygen Saturation: 95 Pulse Rate: 93 Pulse Location: Radial Pulse Strength: Normal Pulse Assessment Method: Solids Control Technician Pulse Rhythm: Regular Capillary Refill: < 3 seconds Heart Sounds: S1 & S2 Breath sounds: Diminished Skin Moisture: Dry Skin Tugor: WNL Skin Color: WNL Date of Service: Jun 20, 2025 Billing Provider: GABRIELLE BOLAÑOS MD Common Visit Codes: [id number] CARE 30-74 MIN GABRIELLE BOLAÑOS MD Jun 20, 2025 14:39
[2025-06-20] MEDS ORDERED: BACTRIM 5MG/KG Q8HR PER RX 10 ML IV SCH ×2 (14:45→15:15)
[2025-06-20] MEDS ORDERED: SULFAMETH TRIMETH IV SCH ×2 (17:00→22:00)
[2025-06-20] MEDS ORDERED: D5W 5% IV SCH ×2 (17:00→22:00)
[2025-06-20] MEDS: SULFAMETH-TRIMETH 80/16MG-ML 20 ML in D5W 5% 500 ML IV SCH (19:00)
[2025-06-21] VITALS (108 sets, daily range): BP systolic 71–138; BP diastolic 34–80; PULSE 77–96; RESP 15–24; TEMP 96.3–99; O2SAT 93–100
[2025-06-21 05:54] LABS: Hematocrit 30.2 % (41.0-53.0); Hemoglobin 10.3 g/dL (13.5-17.5); Mean Corpuscular Hemoglobin 29.5 pg (28.0-32.0); Mean Corpuscular Volume 86.4 fL (80.0-100.0); Nucleated Red Blood Cells % 0.0 %
[2025-06-21 06:07] LABS: Anion Gap 7 (5-15); Carbon Dioxide 29 mmol/L (20-31); Chloride 103 mmol/L (98-107); Potassium 4.3 mmol/L (3.5-5.1); Sodium 139 mmol/L (136-145)
[2025-06-21 06:08] LABS: Calcium 9.7 mg/dL (8.7-10.4)
[2025-06-21 06:13] LABS: BUN/Creatinine Ratio 13.2 (10.0-20.0)
[2025-06-21 06:24] LABS: Blood Urea Nitrogen 7 mg/dL (9-23); Glucose 154 mg/dL (74-106)
[2025-06-21 06:54] LABS: Base Excess 3.3 mmol/L (-2.0-3.0)
--- NOTE | 2025-06-21 07:45 | DVH ---
INDICATION: RESP FAILURE TECHNIQUE: Single frontal view of the chest was obtained COMPARISON: XY CHEST PORTABLE on DOS: 06/20/25, XY CHEST PORTABLE on DOS: 06/19/25, XY CHEST PORTABLE on DOS: 06/18/25, XY CHEST XRAY 1 VIEW on DOS: 06/18/25, XY CHEST PORTABLE on DOS: 06/17/25, XY CHEST PORTABLE on DOS: 06/20/25 FINDINGS: Lines and Tubes: Endotracheal tube, enteric catheter and right central venous catheter in satisfactor y position Lungs: Congestion. Left lower lobe airspace disease. Pleura: No effusion. No pneumothorax. Cardiomediastinal contours: Unremarkable Bones: Unremarkable IMPRESSION: Lines and tubes in satisfactory position. No significant interval change.
--- NOTE | 2025-06-21 09:54 | DVHPN2 ---
Subjective Patient chemically sedated Reviewed: Care Plan Changes from previous H/P or p: No Changes General: Per HPI Eyes: No Pain, No Vision change, No Conjunctivae inflammation, No Eyelid inflammation, No Other, No Redness ENT: No Ear pain, No Ear discharge, No Nose pain, No Nose discharge, No Nose congestion, No Mouth pain, No Mouth swelling, No Throat pain, No Throat swelling, No Other Cardiovascular: No Chest Pain, No Palpitations, No Orthopnea, No Paroxysmal Noc. Dyspnea, No Edema, No Lt Headedness, No Other Respiratory: No Cough, No Dry; Shortness of breath, SOB with excertion; No Wheezing, No Hemoptysis, No Pleuritic Pain, No Sputum; Other (SOB at rest) Gastrointestinal: No Nausea, No Vomiting, No Abdominal Pain, No Diarrhea, No Constipation, No Melena, No Hematochezia, No Other Genitourinary: No Dysuria, No Frequency, No Incontinence, No Hematuria, No Retention; Other (Montague catheter in place) Musculoskeletal: No other, No neck pain, No shoulder pain, No arm pain, No back pain, No hand pain, No leg pain, No foot pain Skin: No Rash, No Lesions, No Jaundice, No Bruising, No Other Objective Vitals Vital Signs Date Time Temp Pulse Resp B/P (MAP) Pulse Ox O2 Delivery O2 Flow Rate FiO2 06/21/25 09:35 80 20 90/51 (64) 98 30 06/21/25 07:30 97.3 207.1 06/21/25 06:00 Mechanical Ventilator+ Intake/Output Intake and Output 06/21/25 07:00 Intake Total 2282.500 ml Output Total 1350 ml Balance 932.500 ml Intake Oral 80 ml IV Total 1904.500 ml Tube Feeding 298 ml Output Urine Total 1350 ml General Appearance: Other (Intubated and sedated) HEENT: Atraumatic, PERRLA Lungs: Clear to auscultation, Normal air movement, Other (Mechanical ventilation) Cardiovascular: Normal S1, Normal S2 Abdomen: Normal bowel sounds, Soft, No tenderness Musculoskeletal: Other (Unable to assess) Skin: Dry, Intact Psych/Mental Status: Other (Unable to assess) Medications Current Medications Medications Dose Ordered Sig/Ezequiel Route Start Time Stop Time Status Last Admin Dose Admin Midazolam HCl 50 ml @ 1 mls/hr Q24H IV 06/10/25 13:45 06/21/25 07:46 6 MLS/HR Fentanyl Citrate 250 ml @ 2.5 mls/hr Q24H IV 06/10/25 14:45 06/20/25 16:14 12.5 MLS/HR Pantoprazole Sodium 40 mg BID IV 06/10/25 22:00 06/20/25 22:24 40 MG Levetiracetam 100 ml @ 400 mls/hr BID IV 06/10/25 22:00 06/20/25 22:23 400 MLS/HR Nitroglycerin 0.4 mg Q5MINP PRN SL 06/10/25 23:15 Cancel Morphine Sulfate 2 mg Q30M PRN IV 06/10/25 23:15 Cancel Nitroglycerin 0.4 mg Q5MINP PRN SL 06/11/25 00:15 Morphine Sulfate 2 mg Q30M PRN IV 06/11/25 00:15 Cancel Enoxaparin Sodium 40 mg DAILY SC 06/11/25 10:00 06/20/25 10:22 40 MG Diagnostic Test (Pha) 1 strip IQ4HR 06/11/25 16:00 Cancel Insulin Human Regular IQ4HR SC 06/11/25 16:00 Cancel Dextrose 50 ml UD PRN IV 06/11/25 13:15 Cancel Insulin Human Regular HS SC 06/11/25 22:00 Cancel Dextrose 50 ml UD PRN IV 06/11/25 14:15 Cancel Enteral Nutritional Formula 1,000 ml 40ML/HR GT 06/11/25 14:45 06/20/25 10:25 1,000 ML Diagnostic Test (Pha) 1 strip ACHS 06/11/25 22:00 06/21/25 06:51 1 STRIP Insulin Human Regular ACHS SC 06/11/25 22:00 06/21/25 06:51 6 UNITS Dextrose 50 ml UD PRN IV 06/11/25 17:30 Albuterol 2.5 mg Q6HR NEB 06/12/25 12:00 06/21/25 06:17 2.5 MG Ipratropium [place] 0.5 mg Q6HR NEB 06/12/25 12:00 06/21/25 06:17 0.5 MG Acetylcysteine 200 mg Q6HR NEB 06/12/25 12:00 06/21/25 06:17 200 MG Norepinephrine Bitartrate 250 ml @ 1.875 mls/ hr Q24H IV 06/14/25 07:45 06/19/25 10:19 7.5 MLS/HR Sennosides 8.6 mg HS PO 06/15/25 22:00 06/20/25 22:24 8.6 MG Polyethylene Glycol 17 gm DAILY PO 06/16/25 10:00 06/20/25 10:18 17 GM Acetaminophen 650 mg Q6HP PRN PO 06/16/25 15:30 06/18/25 23:27 650 MG Methylprednisolone Sodium Succinate 40 mg BID IV 06/18/25 22:00 06/20/25 22:24 40 MG Sodium Chloride 10 ml QSHIFT@10,22 IV 06/19/25 22:00 06/20/25 22:24 10 ML Lactulose 30 ml DAILY PO 06/21/25 10:00 Trimethoprim/ Sulfamethoxazole 10 ml @ 0 mls/hr PER PHARMACY IV 06/20/25 14:45 Trimethoprim/ Sulfamethoxazole 10 ml @ 0 mls/hr PER PHARMACY IV 06/20/25 15:15 UNV Trimethoprim/ Sulfamethoxazole 20 ml/Dextrose 520 ml @ 346.667 mls/hr Q12H IV 06/20/25 17:00 06/21/25 05:02 346.667 MLS/HR Laboratory Results Laboratory Tests 06/21/25 04:39 Chemistry Test 06/21/25 04:39 Calcium Level 9.7 mg/dL (8.7-10.4) Urinalysis Test 06/10/25 12:55 Urine Color Light-yellow (Yellow) Urine Clarity Clear (Clear) Urine pH 6.5 (5.0-9.0) Urine Specific [place] 1.012 (1.001-1.035) Urine Protein Negative (Negative) Urine Ketones Negative (Negative) Urine Blood Negative /uL (Negative) Urine Nitrite Negative (Negative) Urine Bilirubin Negative (Negative) Urine Urobilinogen Normal mg/dL (Negative) Urine Leukocyte Esterase Trace /uL (Negative) Urine RBC 6 /hpf (0 - 4) Urine Microscopic WBC 4 /HPF (0-5) Urine Squamous Epithelial Cells Few /hpf (<5) Urine Bacteria None seen /hpf (None Seen) Urine Glucose Normal mg/dL (Normal) Blood Gas Results Test 06/21/25 06:45 Arterial Blood pH 7.415 (7.350-7.450) FiO2 % 30.0 Microbiology Microbiology Date/Time Source Procedure Growth Status 06/18/25 16:00 Sputum Gram Stain - Final Resulted 06/18/25 16:00 Sputum Respiratory Culture - Preliminary Resulted 06/17/25 14:35 Blood Blood Culture - Preliminary NO GROWTH AFTER 72 HOURS OF INCUBATION. Resulted 06/17/25 13:30 Voided Urine Urine Culture - Final Complete 06/14/25 15:08 Catheter Site Aerobic Culture - Final Citrobacter freundii Enterococcus faecalis Yeast, not Felicia albicans Stenotrophomonas maltophilia Complete Labs and/or images reviewed: Labs reviewed by me, Image(s) reviewed by me Assessment/Plan Assessment/Plan Impression: -acute hypoxic respiratory failure -septic shock secondary to complicated cystitis and pneumonia -community-acquired pneumonia, aspiration etiology. Positive Acinetobacter baumannii, Staph aureus -seizure disorder -diabetes mellitus -history of neurocysticercosis -physical deconditioning with bed-bound status -chronic diastolic heart failure -COPD with exacerbation Plan: -continue current antibiotic therapy with Bactrim -surgical consultation for tracheostomy -regular insulin sliding scale -continue current ventilator settings -bronchodilators -IV diuresis -continue tube feeding -PUD, DVT prophylaxis -repeat labs, chest x-ray, ABG in a.m. Critical care time spent with patient discussing and formulating plan of care: 40 minutes. This does not include time spent performing procedures. This medical document was created using an electronic medical record system with [employer] dictation system. Although this document has been carefully reviewed, there may still be some phonetic and typographical errors. These areas are purely typographical due to imperfections of the software programs, and do not reflect any compromise in the patient's medical care. Plan discussed with: Patient, Other (RN) My Orders Orders - EKTA MURILLO NP Procedure Category Date Status Time Basic Metabolic Panel LAB 06/22/25 Verified 04:00 Chest Portable XY 06/22/25 Verified 04:00 Abg W/ Co-Ox RT 06/22/25 Verified 04:00 Date of Service: Jun 21, 2025 Billing Provider: EKTA MURILLO NP Common Visit Codes: [id number] CARE 30-74 MIN EKTA MURILLO NP Jun 21, 2025 09:54
[2025-06-21] MEDS: LACTULOSE 20Gm/30ML SOLN PO SCH (09:58)
[2025-06-22] VITALS (107 sets, daily range): BP systolic 68–132; BP diastolic 33–80; PULSE 20–118; RESP 15–27; TEMP 97.5–99.3; O2SAT 93–100
[2025-06-22 05:12] LABS: Hemoglobin 9.8 g/dL (13.5-17.5); Nucleated Red Blood Cells % 0.0 %
[2025-06-22 05:16] LABS: Hematocrit 28.1 % (41.0-53.0); Mean Corpuscular Hemoglobin 29.8 pg (28.0-32.0); Mean Corpuscular Volume 85.6 fL (80.0-100.0)
[2025-06-22 05:19] LABS: Chloride 99 mmol/L (98-107)
[2025-06-22 05:20] LABS: Anion Gap 6 (5-15); Carbon Dioxide 30 mmol/L (20-31)
[2025-06-22 05:21] LABS: Calcium 9.5 mg/dL (8.7-10.4)
[2025-06-22 05:25] LABS: INR 1.03 (0.9-1.15); Partial Thromboplastin Time 28.5 SEC (24.5-34.5); Prothrombin Time 10.9 sec (9.3-11.8)
[2025-06-22 05:26] LABS: BUN/Creatinine Ratio 15.3 (10.0-20.0)
[2025-06-22 05:36] LABS: Blood Urea Nitrogen 9 mg/dL (9-23); Glucose 195 mg/dL (74-106); Potassium 5.3 mmol/L (3.5-5.1); Sodium 135 mmol/L (136-145)
--- NOTE | 2025-06-22 06:18 | DVH ---
CHEST RADIOGRAPH Indication: Device Placement Technique: Single frontal view of the chest was obtained COMPARISON: XY CHEST PORTABLE on DOS: 06/21/25, XY CHEST PORTABLE on DOS: 06/20/25, XY CHEST PORTABLE on DOS: 06/19/25, XY CHEST PORTABLE on DOS: 06/18/25, XY CHEST XRAY 1 VIEW on DOS: 06/18/25 FINDINGS: Lines and Tubes: Unchanged. Lungs: Mild interval increase in right upper lobe and bibasilar pulmonary airspace disease. Pleura: No effusion. No pneumothorax. Cardiomediastinal contours: Unremarkable Bones: Unremarkable IMPRESSION: 1. Mild interval increase in right upper lobe and bibasilar pulmonary airspace disease. 2. Lines and tubes unchanged.
[2025-06-22 09:04] LABS: Base Excess 3.3 mmol/L (-2.0-3.0)
[2025-06-22] MEDS: SODIUM ZIRCONIUM CYCL 10 GM PAK PO ONE (14:00)
--- NOTE | 2025-06-22 14:28 | DVHPN2 ---
Progress Note - Dictate Date Seen: Jun 22, 2025 Has the PT tested + for MRSA If YES, has PT been informed?: Yes Medical Necessity Reason Pt with a Central, PICC or Fol: Yes The following are medically ne: PICC Line, Mock Catheter Reason for mock catheter: Strict I&O vital signs Vital Sign Date Time Temp Pulse Resp B/P (MAP) Pulse Ox O2 Delivery O2 Flow Rate FiO2 06/22/25 14:01 118/61 06/22/25 12:40 86 21 98 30 06/22/25 12:00 Mechanical Ventilator+ 06/22/25 07:45 98.4 98.4 Total Intake and Output 06/21/25 06/21/25 06/22/25 15:00 23:00 07:00 Intake Total 343.000 ml 1362.875 ml 948.625 ml Output Total 950 ml 2050 ml Balance 343.000 ml 412.875 ml -1101.375 ml medications Current Medications Medications Dose Ordered Sig/Ezequiel Route Start Time Stop Time Status Last Admin Dose Admin Midazolam HCl 50 ml @ 1 mls/hr Q24H IV 06/10/25 13:45 06/22/25 10:12 6 MLS/HR Fentanyl Citrate 250 ml @ 2.5 mls/hr Q24H IV 06/10/25 14:45 06/22/25 03:13 15 MLS/HR Pantoprazole Sodium 40 mg BID IV 06/10/25 22:00 06/22/25 10:10 40 MG Levetiracetam 100 ml @ 400 mls/hr BID IV 06/10/25 22:00 06/22/25 10:11 400 MLS/HR Nitroglycerin 0.4 mg Q5MINP PRN SL 06/10/25 23:15 Cancel Morphine Sulfate 2 mg Q30M PRN IV 06/10/25 23:15 Cancel Nitroglycerin 0.4 mg Q5MINP PRN SL 06/11/25 00:15 Morphine Sulfate 2 mg Q30M PRN IV 06/11/25 00:15 Cancel Enoxaparin Sodium 40 mg DAILY SC 06/11/25 10:00 06/22/25 10:11 40 MG Diagnostic Test (Pha) 1 strip IQ4HR 06/11/25 16:00 Cancel Insulin Human Regular IQ4HR SC 06/11/25 16:00 Cancel Dextrose 50 ml UD PRN IV 06/11/25 13:15 Cancel Insulin Human Regular HS SC 06/11/25 22:00 Cancel Dextrose 50 ml UD PRN IV 06/11/25 14:15 Cancel Enteral Nutritional Formula 1,000 ml 40ML/HR GT 06/11/25 14:45 06/22/25 04:51 1,000 ML Diagnostic Test (Pha) 1 strip ACHS 06/11/25 22:00 06/22/25 10:12 1 STRIP Insulin Human Regular ACHS SC 06/11/25 22:00 06/22/25 06:30 6 UNITS Dextrose 50 ml UD PRN IV 06/11/25 17:30 Albuterol 2.5 mg Q6HR NEB 06/12/25 12:00 06/22/25 12:40 2.5 MG Ipratropium [place] 0.5 mg Q6HR NEB 06/12/25 12:00 06/22/25 12:40 0.5 MG Norepinephrine Bitartrate 250 ml @ 1.875 mls/ hr Q24H IV 06/14/25 07:45 06/22/25 10:11 7.5 MLS/HR Sennosides 8.6 mg HS PO 06/15/25 22:00 06/21/25 21:38 8.6 MG Polyethylene Glycol 17 gm DAILY PO 06/16/25 10:00 06/22/25 10:10 17 GM Acetaminophen 650 mg Q6HP PRN PO 06/16/25 15:30 06/18/25 23:27 650 MG Methylprednisolone Sodium Succinate 40 mg BID IV 06/18/25 22:00 06/22/25 10:10 40 MG Sodium Chloride 10 ml QSHIFT@10,22 IV 06/19/25 22:00 06/22/25 10:12 10 ML Lactulose 30 ml DAILY PO 06/21/25 10:00 06/22/25 10:10 30 ML Trimethoprim/ Sulfamethoxazole 10 ml @ 0 mls/hr PER PHARMACY IV 06/20/25 14:45 Trimethoprim/ Sulfamethoxazole 10 ml @ 0 mls/hr PER PHARMACY IV 06/20/25 15:15 UNV Trimethoprim/ Sulfamethoxazole 20 ml/Dextrose 520 ml @ 346.667 mls/hr Q12H IV 06/20/25 17:00 9/6/25 04:52 346.667 MLS/HR laboratory and microbiology Laboratory Tests 06/22/25 04:27 Test 06/22/25 04:27 Range/Units Serum Glucose 195 H 74-106 mg/dL Assessment/Plan Covering for Dr. Capone Impression Acute hypoxemic respiratory failure Mucus plugs Atelectasis COPD Patient seen and examined in ICU Events On mechanical ventilation S/p re-intubation PEEP 5, FiO2 30% Labs and imaging reviewed ABG reviewed Management Vent support Titrate to maintain sats 90% or above Sedation for vent synchrony Continue antibiotics F/u cultures Bronchodilators Monitor renal function Monitor electrolytes Supplement as needed Pressors as needed for hemodynamic support To maintain a mean arterial pressure of 65 mmHg Proceed to tracheostomy DVT prophylaxis Critical care time 35 minutes Dietary Evaluation Review Comments: Nutrition Recommendation: 1) TF Jevity 1.2Cal @ 45ml/hr x 24hr (goal) along with Pro-stat 1 pk daily. Start @ 20ml/hr, increase 10ml/hr Q4H until goal is reached. TF @ goal volume along with Pro-stat provide 1396 kcal (100% energy needs), 75 gm protein (100% protein needs), 872 ml free water. 2) Water flush 130ml Q6H if allowed, adjust PRN 3) TPN if NPO >7 days 4) Monitor NPO status, lab values, wt trend, I/O Expected Outcomes/Goals: To meet >75% estimated needs Lab values to improve Fu 2-3 days Plan discussed with: Other (Rn) Is the fluid challenge complet: No (PROVIDER ORDERED NO FLUID CHALLENGE DUE TO RISK OF FLUID OVERLOAD) Date of Reassessment: Jun 10, 2025 Time of Reassessment: 183 Blood Culture Time: 1215 Time Antibiotics Given: 1215 Systolic BP: 94 Diastolic BP: 51 Blood Pressure Mean: 65 Respiration: 20 Respiratory Effort: Non-Labored, ET Tube Respiratory Pattern: Regular Oxygen Saturation: 95 Pulse Rate: 93 Pulse Location: Radial Pulse Strength: Normal Pulse Assessment Method: Cost Accounting Analyst Pulse Rhythm: Regular Capillary Refill: < 3 seconds Heart Sounds: S1 & S2 Breath sounds: Diminished Skin Moisture: Dry Skin Tugor: WNL Skin Color: WNL JU PEREZ MD Jun 22, 2025 14:28
--- NOTE | 2025-06-22 19:21 | DVHPN2 ---
Assessment/Plan Assessment/Plan erin huizar wound care. plan for trach Neurological #History of seizure disorder #Previous [employer] shunt. #History of neurocysticercosis. patient is on versed and fentanyl pt needed paralitics during bronchoscopy levetiracetam IV BID Cardiovascular #Septic shock due to gram+/gram - pneumonia #Chronic diastolic heart failure. levophed 7 mcg: increased hold on GDMT, until shock resolved Respiratory: #Acute respiratory failure due to: #Septic shock due to gram+/gram - pneumonia #Aspiration pneumonia #COPD exacerbation #sp broncoscopy #sp tube exchange minimal vent settings staph aureus, acinobacter baumani and B strep Angelika isolated: on vancomycin and meropenem IV no plans of extubation during the weekend bronchoscopy: The trachea is in normal caliber. The bob is sharp. The tracheobronchial tree of the right lung was examined to at least the first subsegmental level. The bronchial mucosa and anatomy in the right lung are normal. There are no endobronchial lesions. There were scant right lower lobe secretions. The left upper lobe, lingula, and left lower lobe were examined to at least the first subsegmental level. Bronchial mucosa and anatomy in the left upper lobe and lingula are normal. There were no endobronchial lesions. There were no secretions. There was no active bleeding at the completion of the procedure. New cultures taken GI: #s/p PEG tube #H/o GERD #Transaminitis (Hyperbilirubinemia) PEG tube showing black secretions, culture of the tube was sent bowel regimen started due to constipation Metabolic #DM type 2, hba1c 5,9 #Hypokalemia #Hypomagnesemia ISS K+ IV Mg2+ IV Renal adequate urine output Heme/onc #Anemia normocytic, normochromic monitor Musculoskeletal #Bedbound status with functional paraplegia DVT prophylaxis: enoxaparin PUD prophylaxis: protonix RIJ: 06/10/25 [place] catheter PEG tube ET tube exchange 06/15/25 Date of Service: Jun 22, 2025 Billing Provider: SUJEY HERNANDEZ MD Common Visit Codes: [id number] CARE 30-74 MIN SUJEY HERNANDEZ MD Jun 22, 2025 19:21
[2025-06-22] MEDS: DEXTROSE (50%) 50ML SYRG IV ONE ×2 (19:30→19:58)
[2025-06-22] MEDS: InsuLIN REG 1unit/0.01ml Soln (100units/ml) IV ONE ×2 (19:30→20:03)
[2025-06-22] MEDS: ALBUTEROL SULF 2.5 MG/0.5ML(0.5%) NEB SOLN NEB ONE ×2 (19:48→19:53)
[2025-06-22] MEDS: CALCIUM GLUC 1,000mg/50ml-NS 50 ML IV ONE (19:57)
[2025-06-22] MEDS: SODIUM BICARB 8.4% 50Meq/50ml SYR INJ IV ONE (19:58)
[2025-06-22] MEDS: FUROSEMIDE 40 MG/4 ML VIAL IV ONE (20:03)
[2025-06-22] MEDS: SODIUM ZIRCONIUM CYCL 10 GM PAK PO SCH (23:01)
[2025-06-23] VITALS (106 sets, daily range): BP systolic 90–133; BP diastolic 43–70; PULSE 90–125; RESP 20–25; TEMP 97.7–99.3; O2SAT 95–100
[2025-06-23 05:11] LABS: Hematocrit 30.8 % (41.0-53.0); Hemoglobin 10.5 g/dL (13.5-17.5); Mean Corpuscular Hemoglobin 29.5 pg (28.0-32.0); Mean Corpuscular Volume 86.9 fL (80.0-100.0); Nucleated Red Blood Cells % 0.0 %
[2025-06-23 05:12] LABS: Alanine Aminotransferase 20 U/L (7-40); Alkaline Phosphatase 101 U/L (46-116); Calcium 9.9 mg/dL (8.7-10.4)
[2025-06-23 05:13] LABS: Albumin 3.8 g/dL (3.2-4.8); Anion Gap 6 (5-15); BUN/Creatinine Ratio 18.5 (10.0-20.0); Blood Urea Nitrogen 12 mg/dL (9-23); Carbon Dioxide 34 mmol/L (20-31); Chloride 94 mmol/L (98-107); Glucose 205 mg/dL (74-106); Magnesium 1.9 mg/dL (1.6-2.6); Potassium 5.0 mmol/L (3.5-5.1); Sodium 134 mmol/L (136-145); Total Protein 6.8 g/dL (5.7-8.2)
[2025-06-23 05:14] LABS: Bilirubin, Total < 0.2 mg/dL (0.2-1.0)
--- NOTE | 2025-06-23 05:54 | DVH ---
CHEST RADIOGRAPH Indication: intubated Technique: Single frontal view of the chest was obtained COMPARISON: XY CHEST PORTABLE on DOS: 06/22/25, XY CHEST PORTABLE on DOS: 06/21/25, XY CHEST PORTABLE on DOS: 06/20/25, XY CHEST PORTABLE on DOS: 06/19/25, XY CHEST PORTABLE on DOS: 06/18/25 FINDINGS: Lines and Tubes: Unchanged. Lungs: Slight interval decrease in right upper lobe and left basilar pulmonary airspace disease. Mild persistent right basilar pulmonary airspace disease. Pleura: No effusion. No pneumothorax. Cardiomediastinal contours: Unremarkable Bones: Unremarkable IMPRESSION: 1. Slight interval decrease in right upper lobe and left basilar pulmonary airspace disease. 2. Mild persistent right basilar pulmonary airspace disease. 3. Lines and tubes unchanged.
[2025-06-23 07:53] LABS: Base Excess 5.5 mmol/L (-2.0-3.0)
--- NOTE | 2025-06-23 12:45 | DVHPN2 ---
Progress Note - Dictate Date Seen: Jun 23, 2025 Has the PT tested + for MRSA If YES, has PT been informed?: Yes Medical Necessity Reason Pt with a Central, PICC or Fol: Yes The following are medically ne: PICC Line, Mock Catheter Reason for mock catheter: Strict I&O vital signs Vital Sign Date Time Temp Pulse Resp B/P (MAP) Pulse Ox O2 Delivery O2 Flow Rate FiO2 06/23/25 11:41 112 20 105/52 (69) 96 30 06/23/25 09:15 98.4 209.1 06/23/25 08:00 Mechanical Ventilator+ Total Intake and Output 06/22/25 06/22/25 06/23/25 15:00 23:00 07:00 Intake Total 344.875 ml 736.125 ml 756.125 ml Output Total 2000 ml 2425 ml Balance 344.875 ml -1263.875 ml -1668.875 ml medications Current Medications Medications Dose Ordered Sig/Ezequiel Route Start Time Stop Time Status Last Admin Dose Admin Midazolam HCl 50 ml @ 1 mls/hr Q24H IV 06/10/25 13:45 06/23/25 11:26 6 MLS/HR Fentanyl Citrate 250 ml @ 2.5 mls/hr Q24H IV 06/10/25 14:45 06/23/25 08:47 15 MLS/HR Pantoprazole Sodium 40 mg BID IV 06/10/25 22:00 06/23/25 10:58 40 MG Levetiracetam 100 ml @ 400 mls/hr BID IV 06/10/25 22:00 06/23/25 10:58 400 MLS/HR Nitroglycerin 0.4 mg Q5MINP PRN SL 06/10/25 23:15 Cancel Morphine Sulfate 2 mg Q30M PRN IV 06/10/25 23:15 Cancel Nitroglycerin 0.4 mg Q5MINP PRN SL 06/11/25 00:15 Morphine Sulfate 2 mg Q30M PRN IV 06/11/25 00:15 Cancel Enoxaparin Sodium 40 mg DAILY SC 06/11/25 10:00 06/23/25 10:59 40 MG Diagnostic Test (Pha) 1 strip IQ4HR 06/11/25 16:00 Cancel Insulin Human Regular IQ4HR SC 06/11/25 16:00 Cancel Dextrose 50 ml UD PRN IV 06/11/25 13:15 Cancel Insulin Human Regular HS SC 06/11/25 22:00 Cancel Dextrose 50 ml UD PRN IV 06/11/25 14:15 Cancel Enteral Nutritional Formula 1,000 ml 40ML/HR GT 06/11/25 14:45 06/22/25 04:51 1,000 ML Diagnostic Test (Pha) 1 strip ACHS 06/11/25 22:00 06/23/25 11:24 1 STRIP Insulin Human Regular ACHS SC 06/11/25 22:00 06/23/25 11:27 4 UNITS Dextrose 50 ml UD PRN IV 06/11/25 17:30 Albuterol 2.5 mg Q6HR NEB 06/12/25 12:00 06/23/25 06:02 2.5 MG Ipratropium [place] 0.5 mg Q6HR NEB 06/12/25 12:00 06/23/25 06:02 0.5 MG Norepinephrine Bitartrate 250 ml @ 1.875 mls/ hr Q24H IV 06/14/25 07:45 06/23/25 04:00 13.125 MLS/HR Sennosides 8.6 mg HS PO 06/15/25 22:00 06/22/25 23:01 8.6 MG Polyethylene Glycol 17 gm DAILY PO 06/16/25 10:00 06/23/25 10:58 17 GM Acetaminophen 650 mg Q6HP PRN PO 06/16/25 15:30 06/18/25 23:27 650 MG Methylprednisolone Sodium Succinate 40 mg BID IV 06/18/25 22:00 06/23/25 10:58 40 MG Sodium Chloride 10 ml QSHIFT@10,22 IV 06/19/25 22:00 06/23/25 10:58 10 ML Lactulose 30 ml DAILY PO 06/21/25 10:00 06/23/25 10:58 30 ML Trimethoprim/ Sulfamethoxazole 10 ml @ 0 mls/hr PER PHARMACY IV 06/20/25 14:45 Trimethoprim/ Sulfamethoxazole 10 ml @ 0 mls/hr PER PHARMACY IV 06/20/25 15:15 UNV Trimethoprim/ Sulfamethoxazole 20 ml/Dextrose 520 ml @ 346.667 mls/hr Q12H IV 06/20/25 17:00 06/23/25 06:05 346.667 MLS/HR Zirconium Oxide 10 gm Q8HR PO 06/22/25 22:00 06/23/25 14:01 06/23/25 06:05 10 GM laboratory and microbiology Laboratory Tests 06/23/25 04:29 Test 06/23/25 04:29 Range/Units Serum Glucose 205 H 74-106 mg/dL Assessment/Plan Covering for Dr. Capone Impression Acute hypoxemic respiratory failure Mucus plugs Atelectasis COPD Patient seen and examined in ICU Events On mechanical ventilation S/p re-intubation PEEP 5, FiO2 30% Labs and imaging reviewed ABG reviewed Management Vent support Titrate to maintain sats 90% or above Sedation for vent synchrony Continue antibiotics F/u cultures Bronchodilators Monitor renal function Monitor electrolytes Supplement as needed Pressors as needed for hemodynamic support To maintain a mean arterial pressure of 65 mmHg Proceed to tracheostomy DVT prophylaxis Critical care time 35 minutes Dietary Evaluation Review Comments: Nutrition Recommendation: 1) TF Jevity 1.2Cal @ 45ml/hr x 24hr (goal) along with Pro-stat 1 pk daily. Start @ 20ml/hr, increase 10ml/hr Q4H until goal is reached. TF @ goal volume along with Pro-stat provide 1396 kcal (100% energy needs), 75 gm protein (100% protein needs), 872 ml free water. 2) Water flush 130ml Q6H if allowed, adjust PRN 3) TPN if NPO >7 days 4) Monitor NPO status, lab values, wt trend, I/O Expected Outcomes/Goals: To meet >75% estimated needs Lab values to improve Fu 2-3 days Plan discussed with: Other (Rn) Is the fluid challenge complet: No (PROVIDER ORDERED NO FLUID CHALLENGE DUE TO RISK OF FLUID OVERLOAD) Date of Reassessment: Jun 10, 2025 Time of Reassessment: 1830 Blood Culture Time: 1215 Time Antibiotics Given: 1215 Systolic BP: 94 Diastolic BP: 51 Blood Pressure Mean: 65 Respiration: 20 Respiratory Effort: Non-Labored, ET Tube Respiratory Pattern: Regular Oxygen Saturation: 95 Pulse Rate: 93 Pulse Location: Radial Pulse Strength: Normal Pulse Assessment Method: Clinical Research Scientist Pulse Rhythm: Regular Capillary Refill: < 3 seconds Heart Sounds: S1 & S2 Breath sounds: Diminished Skin Moisture: Dry Skin Tugor: WNL Skin Color: WNL JU PEREZ MD Jun 23, 2025 12:45
--- NOTE | 2025-06-23 14:42 | DVHPN2 ---
Assessment/Plan Assessment/Plan k possible from bactrim, no substitution, ctm, lokelma 24 hours if high Neurological #History of seizure disorder #Previous [employer] shunt. #History of neurocysticercosis. patient is on versed and fentanyl pt needed paralitics during bronchoscopy levetiracetam IV BID Cardiovascular #Septic shock due to gram+/gram - pneumonia #Chronic diastolic heart failure. levophed 7 mcg: increased hold on GDMT, until shock resolved Respiratory: #Acute respiratory failure due to: #Septic shock due to gram+/gram - pneumonia #Aspiration pneumonia #COPD exacerbation #sp broncoscopy #sp tube exchange minimal vent settings staph aureus, acinobacter baumani and B strep Angelika isolated: on vancomycin and meropenem IV no plans of extubation during the weekend bronchoscopy: The trachea is in normal caliber. The bob is sharp. The tracheobronchial tree of the right lung was examined to at least the first subsegmental level. The bronchial mucosa and anatomy in the right lung are normal. There are no endobronchial lesions. There were scant right lower lobe secretions. The left upper lobe, lingula, and left lower lobe were examined to at least the first subsegmental level. Bronchial mucosa and anatomy in the left upper lobe and lingula are normal. There were no endobronchial lesions. There were no secretions. There was no active bleeding at the completion of the procedure. New cultures taken GI: #s/p PEG tube #H/o GERD #Transaminitis (Hyperbilirubinemia) PEG tube showing black secretions, culture of the tube was sent bowel regimen started due to constipation Metabolic #DM type 2, hba1c 5,9 #Hypokalemia #Hypomagnesemia ISS K+ IV Mg2+ IV Renal adequate urine output Heme/onc #Anemia normocytic, normochromic monitor Musculoskeletal #Bedbound status with functional paraplegia DVT prophylaxis: enoxaparin PUD prophylaxis: protonix RIJ: 06/10/25 [place] catheter PEG tube ET tube exchange 06/15/25 Plan discussed with: Other My Orders Orders - SUJEY HERNANDEZ MD Procedure Category Date Status Time Urine Potassium LAB 06/22/25 Logged 19:21 Date of Service: Jun 23, 2025 Billing Provider: SUJEY HERNANDEZ MD Common Visit Codes: [id number] CARE 30-74 MIN SUJEY HERNANDEZ MD Jun 23, 2025 14:42
[2025-06-23] MEDS: SODIUM CHLORIDE 0.9% 1,000 ML IV ONE (16:41)
[2025-06-24] VITALS (102 sets, daily range): BP systolic 80–144; BP diastolic 40–78; PULSE 85–109; RESP 19–27; TEMP 69.4–99.7; O2SAT 94–100
--- NOTE | 2025-06-24 05:24 | DVH ---
CHEST RADIOGRAPH Indication: intubated Technique: Single frontal view of the chest was obtained COMPARISON: XY CHEST PORTABLE on DOS: 06/23/25, XY CHEST PORTABLE on DOS: 06/22/25, XY CHEST PORTABLE on DOS: 06/21/25, XY CHEST PORTABLE on DOS: 06/20/25, XY CHEST PORTABLE on DOS: 06/19/25 FINDINGS: Lines and Tubes: Unchanged. Lungs: Progressive interval clearing of multifocal bilateral pulmonary airspace disease with mild res idual left basilar infiltrate noted. Pleura: No effusion. No pneumothorax. Cardiomediastinal contours: Unremarkable Bones: Unremarkable IMPRESSION: 1. Progressive interval clearing of multifocal bilateral pulmonary airspace disease with mild residua l left basilar infiltrate noted. 2. Lines and tubes unchanged.
[2025-06-24 05:49] LABS: Nucleated Red Blood Cells % 0.1 %
[2025-06-24 05:52] LABS: Hematocrit 27.6 % (41.0-53.0); Hemoglobin 9.4 g/dL (13.5-17.5); Mean Corpuscular Hemoglobin 30.0 pg (28.0-32.0); Mean Corpuscular Volume 88.7 fL (80.0-100.0)
[2025-06-24 05:54] LABS: Anion Gap 4 (5-15)
[2025-06-24 05:55] LABS: Calcium 9.4 mg/dL (8.7-10.4)
[2025-06-24 06:00] LABS: BUN/Creatinine Ratio 26.3 (10.0-20.0); Blood Urea Nitrogen 15 mg/dL (9-23); Magnesium 1.8 mg/dL (1.6-2.6)
[2025-06-24 06:03] LABS: Carbon Dioxide 34 mmol/L (20-31); Chloride 96 mmol/L (98-107); Glucose 174 mg/dL (74-106); Potassium 5.5 mmol/L (3.5-5.1); Sodium 134 mmol/L (136-145)
[2025-06-24 06:24] LABS: INR 0.99 (0.9-1.15); Partial Thromboplastin Time 25.9 SEC (24.5-34.5); Prothrombin Time 10.5 sec (9.3-11.8)
[2025-06-24] MEDS ORDERED: ROCURONIUM 10MG/ML 10ML VIAL IV ONE (08:17)
[2025-06-24] MEDS ORDERED: SODIUM CHLORIDE LOCK 10 ML ONE (08:23)
[2025-06-24] MEDS: BUPIVACAINE HCL 0.25% P/F 10 ML VIAL ONE (08:29)
[2025-06-24] MEDS: LIDOCAINE W/ EPINEPHRINE 1% 20ML VIAL ONE (08:29)
--- NOTE | 2025-06-24 09:31 | DVH ---
EXAM: XY CHEST PORTABLE Indication: s/p tracheostomy Technique: Single frontal view of the chest was obtained Comparison: XY CHEST PORTABLE on DOS: 06/24/25, XY CHEST PORTABLE on DOS: 06/23/25, XY CHEST PORTABLE on DOS: 06/22/25, XY CHEST PORTABLE on DOS: 06/21/25, XY CHEST PORTABLE on DOS: 06/20/25 FINDINGS: Lines and Tubes: Tracheostomy tube is visualized. Right PICC tip projects over the cavoatrial junctio n. Lungs: Stable interstitial opacities. Pleura: No effusion. No pneumothorax. Cardiomediastinal contours: Unremarkable Bones: No acute osseous abnormality. IMPRESSION: Tracheostomy tube is visualized. Otherwise no significant change compared to prior exam.
--- NOTE | 2025-06-24 09:44 | DVHOP ---
DATE OF SURGERY: 06/24/2025 PREOPERATIVE DIAGNOSIS: Ventilator-dependent respiratory failure. POSTOPERATIVE DIAGNOSIS: Ventilator-dependent respiratory failure. SURGEON: Russel Nassar MD. MANAGER DISCOVERY: Travis Rivera NP. ANESTHESIA: General endotracheal by [employer]ELOP[employer]. PROCEDURE: Tracheostomy. DESCRIPTION OF PROCEDURE: Under adequate anesthesia with the patient's skin prepped and draped, infiltrated with 0.25% Marcaine and 0.5% Xylocaine with epinephrine mixture, the incision was made very clear in the anterior cervical skin. The incision was deepened with electrocautery. The strap muscle was divided in the midline. The thyroid was displaced superiorly and the pretracheal tissues swept laterally. An incision was made between the 4th and 5th tracheal ring and the tracheotomy was dilated to accommodate a size 8 tracheostomy tube, which was then inserted through the tracheotomy as the anesthesiologist withdrew the endotracheal tube. Reaching the final position, the tracheostomy recaptured CO2 and resumed normal gas exchange instantly. The tracheostomy was secured with interrupted Prolene sutures and an umbilical tape. The cuff was insufflated with 6 mL of air. The patient remained in clinically unchanged condition at the termination of procedure, left the operating room following an accurate needle and sponge count. His family was thoroughly informed by phone. Chest x-ray was ordered and is pending at the time of this dictation. Russel Nassar MD PF/GISSEL TID: [id number] RECEIPT: [id number]
--- NOTE | 2025-06-24 11:56 | DVHPN2 ---
Progress Note Date Seen: Jun 24, 2025 Has the PT tested + for MRSA If YES, has PT been informed?: Yes Medical Necessity Reason Pt with a Central, PICC or Fol: Yes The following are medically ne: PICC Line, Mock Catheter Reason for mock catheter: Strict I&O Subjective Patient reports: No new complaints Review of Systems: HEENT:Normal, CVS:Normal, RESPIRATORY:Normal, GI:Normal, :Normal, MSK:Normal, NEURO:Normal Objective vital signs Vital Sign Date Time Temp Pulse Resp B/P (MAP) Pulse Ox O2 Delivery O2 Flow Rate FiO2 06/24/25 11:10 99 20 99/56 (70) 97 30 06/24/25 09:45 97.5 207.5 06/24/25 08:00 Mechanical Ventilator+ Total Intake and Output 06/23/25 06/23/25 06/24/25 15:00 23:00 07:00 Intake Total 885.50 ml 1791.0 ml 1050.375 ml Output Total 1600 ml 2050 ml Balance 885.50 ml 191.0 ml -999.625 ml medications Current Medications Medications Dose Ordered Sig/Ezequiel Route Start Time Stop Time Status Last Admin Dose Admin Midazolam HCl 50 ml @ 1 mls/hr Q24H IV 06/10/25 13:45 06/24/25 05:41 6 MLS/HR Fentanyl Citrate 250 ml @ 2.5 mls/hr Q24H IV 06/10/25 14:45 06/24/25 03:34 10 MLS/HR Pantoprazole Sodium 40 mg BID IV 06/10/25 22:00 06/24/25 10:26 40 MG Levetiracetam 100 ml @ 400 mls/hr BID IV 06/10/25 22:00 06/24/25 10:27 400 MLS/HR Nitroglycerin 0.4 mg Q5MINP PRN SL 06/10/25 23:15 Cancel Morphine Sulfate 2 mg Q30M PRN IV 06/10/25 23:15 Cancel Nitroglycerin 0.4 mg Q5MINP PRN SL 06/11/25 00:15 Morphine Sulfate 2 mg Q30M PRN IV 06/11/25 00:15 Cancel Enoxaparin Sodium 40 mg DAILY SC 06/11/25 10:00 06/24/25 10:27 40 MG Diagnostic Test (Pha) 1 strip IQ4HR 06/11/25 16:00 Cancel Insulin Human Regular IQ4HR SC 06/11/25 16:00 Cancel Dextrose 50 ml UD PRN IV 06/11/25 13:15 Cancel Insulin Human Regular HS SC 06/11/25 22:00 Cancel Dextrose 50 ml UD PRN IV 06/11/25 14:15 Cancel Enteral Nutritional Formula 1,000 ml 40ML/HR GT 06/11/25 14:45 06/22/25 04:51 1,000 ML Diagnostic Test (Pha) 1 strip ACHS 06/11/25 22:00 06/24/25 11:35 1 STRIP Insulin Human Regular ACHS SC 06/11/25 22:00 06/24/25 06:37 4 UNITS Dextrose 50 ml UD PRN IV 06/11/25 17:30 Albuterol 2.5 mg Q6HR NEB 06/12/25 12:00 06/24/25 11:10 2.5 MG Ipratropium [place] 0.5 mg Q6HR NEB 06/12/25 12:00 06/24/25 11:10 0.5 MG Norepinephrine Bitartrate 250 ml @ 1.875 mls/ hr Q24H IV 06/14/25 07:45 06/24/25 01:18 5.625 MLS/HR Sennosides 8.6 mg HS PO 06/15/25 22:00 06/23/25 21:29 8.6 MG Polyethylene Glycol 17 gm DAILY PO 06/16/25 10:00 06/24/25 10:27 17 GM Acetaminophen 650 mg Q6HP PRN PO 06/16/25 15:30 06/18/25 23:27 650 MG Methylprednisolone Sodium Succinate 40 mg BID IV 06/18/25 22:00 06/24/25 10:26 40 MG Sodium Chloride 10 ml QSHIFT@10,22 IV 06/19/25 22:00 06/24/25 10:26 10 ML Lactulose 30 ml DAILY PO 06/21/25 10:00 06/24/25 10:26 30 ML Trimethoprim/ Sulfamethoxazole 10 ml @ 0 mls/hr PER PHARMACY IV 06/20/25 14:45 Trimethoprim/ Sulfamethoxazole 10 ml @ 0 mls/hr PER PHARMACY IV 06/20/25 15:15 UNV Trimethoprim/ Sulfamethoxazole 20 ml/Dextrose 520 ml @ 346.667 mls/hr Q12H IV 06/20/25 17:00 06/24/25 05:25 346.667 MLS/HR Examination: GENERAL:Normal, HEENT:Normal, NECK:Normal, LUNGS:Normal, LUNGS:Abnormal (trach, vent), CVS:Normal, ABDOMEN:Normal, MSK:Normal, SKIN:Normal, NEURO:Normal, :Normal laboratory and microbiology Laboratory Tests 06/24/25 04:42 Test 06/24/25 04:42 Range/Units Serum Glucose 174 H 74-106 mg/dL Microbiology Date/Time Source Procedure Growth Status 06/21/25 00:45 Sputum Gram Stain - Final Resulted 06/21/25 00:45 Sputum Respiratory Culture - Preliminary Resulted 06/17/25 14:35 Blood Blood Culture - Final NO GROWTH AFTER 5 DAYS OF INCUBATION. 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 * History of neurocysticercosis. * COPD with exacerbation: iv steroids * Chronic diastolic heart failure. * Bedbound status with functional paraplegia. * History of PEG feedings * uti due to c freundi: iv bactrim long dw family regards further treatment long dw family- reviewed labs and plan of care Plan discussed with: Daughter My Orders My Orders Orders - GABRIELLE BOLAÑOS MD Procedure Category Date Status Time Sodium Zirconium PHA 06/24/25 Transmitted Cyclosilicate 14:00 Sodium Phosphates PHA 06/24/25 Transmitted 12:00 Basic Metabolic Panel LAB 06/25/25 Verified 06:00 Complete Blood Count LAB 06/25/25 Verified 06:00 Magnesium LAB 06/25/25 Verified 05:00 Phosphorus LAB 06/25/25 Verified 06:00 Chest Portable XY 06/25/25 Transmitted 06:00 Abg W/ Co-Ox RT 06/25/25 Transmitted 06:00 * Configuration Analyst CONS 06/24/25 Verified Consult Dietary Evaluation Review Comments: Nutrition Recommendation: 1) TF Jevity 1.2Cal @ 45ml/hr x 24hr (goal) along with Pro-stat 1 pk daily. Start @ 20ml/hr, increase 10ml/hr Q4H until goal is reached. TF @ goal volume along with Pro-stat provide 1396 kcal (100% energy needs), 75 gm protein (100% protein needs), 872 ml free water. 2) Water flush 130ml Q6H if allowed, adjust PRN 3) TPN if NPO >7 days 4) Monitor NPO status, lab values, wt trend, I/O Expected Outcomes/Goals: To meet >75% estimated needs Lab values to improve Fu 2-3 days Critical Care Time (mins): 46 (critical care time excluding procedures was 46 mins) Sepsis reassessment post fluid Is the fluid challenge complet: No (PROVIDER ORDERED NO FLUID CHALLENGE DUE TO RISK OF FLUID OVERLOAD) Date of Reassessment: Jun 10, 2025 Time of Reassessment: 1830 Blood Culture Time: 1215 Time Antibiotics Given: 1215 Systolic BP: 94 Diastolic BP: 51 Blood Pressure Mean: 65 Respiration: 20 Respiratory Effort: Non-Labored, ET Tube Respiratory Pattern: Regular Oxygen Saturation: 95 Pulse Rate: 93 Pulse Location: Radial Pulse Strength: Normal Pulse Assessment Method: Tax Manager Pulse Rhythm: Regular Capillary Refill: < 3 seconds Heart Sounds: S1 & S2 Breath sounds: Diminished Skin Moisture: Dry Skin Tugor: WNL Skin Color: WNL Date of Service: Jun 24, 2025 Billing Provider: GABRIELLE BOLAÑOS MD Common Visit Codes: [id number] CARE 30-74 MIN GABRIELLE BOLAÑOS MD Jun 24, 2025 11:56
[2025-06-24] MEDS: SODIUM ZIRCONIUM CYCL 10 GM PAK GT SCH (14:35)
[2025-06-24] MEDS: SODIUM PHOSPHATES 24 MEQ in SODIUM CHL 0.9% 100 ML IV ONE (14:38)
--- NOTE | 2025-06-24 15:04 | CODING ---
Date of Service: Jun 17, 2025 Billing Provider: JESUS NAYAK MD Common Visit Codes: [id number] CARE 30-74 MIN JESUS NAYAK MD Jun 24, 2025 15:04
[2025-06-24] MEDS: methylPREDNISolone SOD SUCC 40 MG/ML VL IV SCH (22:00)
[2025-06-25] VITALS (108 sets, daily range): BP systolic 72–137; BP diastolic 36–71; PULSE 88–116; RESP 16–26; TEMP 84.2–99.7; O2SAT 90–100
--- NOTE | 2025-06-25 00:09 | DVHINCON2 ---
Date of service: Jun 24, 2025 Referring Physician Melody Reason for Consultation CHF History of Present Illness This is a 54 year old male with a PMH of GERD, High Lipids, Seizures who was brought in by EMS on 06/10 due to SOB. Patient was found hypoxic with room air saturation in the 70s. The patient was intubated for airway protection. Patient was admitted to the ICU. Patient underwent tracheostomy placement today. I am as ked to evaluate this patient. Family History: Cancer G8 MOTHER G8 BROTHER G8 SISTER Hypertension in brother G8 BROTHER Renal failure G8 BROTHER G8 BROTHER Allergies: Coded Allergies: Ceftriaxone (Verified Allergy, Unknown, 08/22/23) Remdesivir (Unverified Allergy, Unknown, 06/10/25) Home Meds Active Scripts Polyethylene Glycol 3350 (Miralax) 17 Gm Pow, 17 GM GT DAILY for 30 Days, #30 POW 2 Refills Prov:GABRIELLE BOLAÑOS MD 05/30/25 Prednisone (Prednisone) 20 Mg Tab, 20 MG PO QAM for 5 Days, #10 MG Prov:GABRIELLE BOLAÑOS MD 05/30/25 Prednisone (Prednisone) 10 Mg Tab, 10 MG PO QAM for 30 Days, #30 MG 1 Refill Prov:GABRIELLE BOLAÑOS MD 05/30/25 Sulfamethoxazole-Trimethoprim (Bactrim) 10 Ml Iv, 10 ML GT BID for 10 Days, #200 CC Prov:AJAY COX MD 05/18/25 Reported Medications Finasteride (Finasteride) 5 Mg Tab, 1 TAB PO DAILY 05/21/25 Niacin (Niacin) 500 Mg Tab, PO 05/21/25 Magnesium Oxide (Mag-Ox) 400 Mg Tb, 1 TAB PO DAILY 05/21/25 Potassium Bicarbonate-Citric A (Effer-K) 10 Meq Tab, 1 TAB PO DAILY 05/21/25 Nutritional Supplements (Ensure Plus Van) 240 Ml So, PO 05/21/25 Furosemide (Furosemide) 20 Mg Tab, 1 TAB PO DAILY 05/21/25 Cholecalciferol (D-5000) 5,000 Unit Tab, 1 TAB PO DAILY 05/21/25 Pravastatin Sodium (PRAVACHOL TABLET) 20 Mg Tb, 10 MG GT DAILY, TAB 05/21/25 Acetaminophen (Acetaminophen Extra Stren) 500 Mg Tab, PO 05/21/25 Prednisone (Prednisone) 10 Mg Tab, 1 TAB PO DAILY 05/21/25 Clotrimazole (Topical) (Clotrimazole Antifungal) 1 % Cre, 1 TOP DAILY 05/21/25 Levetiracetam (Levetiracetam) 100 Mg/Ml Haley, ML PO 05/21/25 Ketoconazole (Ketoconazole) 2 % Cre, 1 APPLIC TOP 05/21/25 Gupbu-6-Tsdp Ethyl Esters (Cjjjh-9-Ftyi Ethyl Esters) 1 Gm Cap, 1 CAP PO BID 05/21/25 Xweafpunwoz-Cdywmpudydqu-Hnzer (Trelegy Ellipta 100-62.5-25 Mcg/INH) 1 Aer Aer, 1 PUFF INH DAILY 05/21/25 Timolol Maleate (Ophth) (Timolol Maleate) 0.5 % Haley, EACHEYE 05/21/25 Lidocaine (Ztlido) 1.8 % Pad, 1.8 % EX, PAD 11/14/24 Budesonide (Inhalation) (Budesonide) 0.5 Mg/2 Ml Nika, 0.5 MG, ML 11/14/24 Alendronate Sodium (Alendronate Sodium) 35 Mg Tab, 1 TAB PO QWEEKLY, #4 TAB 11 Refills 11/14/24 [place]-3 Fatty Acids ([place]-3) Unknown Strength Cap, PO, CAP 11/14/24 Mupirocin Calcium (Topical) (MUPIROCIN) 2 % Cre, 2 % EX, CRE 11/14/24 Acetaminophen (Acetaminophen) 325 Mg Tab, 500 MG PO Q6HP PRN for MILD PAIN for 30 Days, MG 0 Refills 11/14/24 Timolol Maleate (Timolol Maleate Ophthalmi) Unknown Strength Haley, EACHEYE QAM, #5 ML 5 Refills 11/14/24 Diclofenac Sodium (Topical) (Diclofenac Sodium) 2 % Haley, 3 % EX, ML 11/14/24 Cholecalciferol (VITAMIN D3) 5,000 Unit Tab, 5000 UNIT PO DAILY, TAB 01/16/24 Niacin (NIACIN ER) 500 Mg Tab, 500 MG PO DAILY, TAB 01/16/24 Ipratropium-Albuterol (Ipratropium [place]/Albut) 1 Haley Haley, 1 HALEY IN Q4HPRN PRN for SHORTNESS OF BREATH, ML 01/16/24 Cyanocobalamin (Vitamin B12) 1,000 Mcg Tab, 1000 MCG PO DAILY, TAB 01/16/24 Pantoprazole Sodium (PANTOPRAZOLE SODIUM) 40 Mg Inj, 40 MG, INJ 08/22/23 Clotrimazole (Clotrimazole) 1 % Cre, 1 APPLIC TOP Q12HR for 30 Days, APPLIC 08/22/23 Magnesium Oxide (MAGNESIUM OXIDE) 400 Mg Tab, 1 TAB PO DAILY, #30 TAB 5 Refills 08/08/23 Zinc W/ Vitamin C (Vitamin C+Zinc 15-60 mg) 1 Tab Tab, 1 TAB PO DAILY, TAB 08/08/23 Pravastatin Sodium (PRAVACHOL TABLET) 20 Mg Tb, 10 TAB PO DAILY, #30 TAB 5 Refills 08/08/23 Folic Acid (Folic Acid) 1 Mg Tab, 1 MG PO DAILY for 30 Days, MG 08/08/23 Tamsulosin Hcl (Tamsulosin Hcl) 0.4 Mg Cap, 0.4 MG PO QPM for 30 Days, MG 02/05/22 Current Medications Current Medications Medications (Trade) Dose Ordered Sig/Ezequiel Route PRN Reason Start Time Stop Time Status Last Admin Zirconium Oxide (Lokelma) 10 gm Q8HR GT 06/24/25 14:00 06/24/25 22:01 Methylprednisolone Sodium Succinate (Solu Medrol) 20 mg BID IV 06/24/25 22:00 06/24/25 22:00 Review of Systems Unable to obtain: intubated on vent. Vital Signs Vital Signs Date Time Temp Pulse Resp B/P (MAP) Pulse Ox O2 Delivery O2 Flow Rate FiO2 06/24/25 23:47 88 20 105/50 (68) 96 30 06/24/25 19:02 Mechanical Ventilator+ 06/24/25 18:30 98.1 208.6 Physical Exam GENERAL: Ill appearing, intubated on vent. EYES: PERRL, EOMI. Anicteric. HENT: Moist mucous membranes. LUNGS: Decreased breath sounds. CARDIOVASCULAR: Regular rate and rhythm. ABDOMEN: Soft, non-tender and non-distended. EXTREMITIES: No edema. SKIN: Warm, dry. Labs/Diagnostic Data Labs Test 06/24/25 04:42 06/23/25 07:31 06/23/25 04:29 06/21/25 08:27 Range/Units White Blood Count 7.5 # 4.4-10.8 10^3/uL Red Blood Count 3.12 L 4.5-5.90 10^6/uL Hemoglobin 9.4 L 13.5-17.5 g/dL Hematocrit 27.6 #L 41.0-53.0 % Mean Corpuscular Volume 88.7 80.0-100.0 fL Mean Corpuscular Hemoglobin 30.0 28.0-32.0 pg Mean Corpuscular Hemoglobin Concent 33.8 32.0-36.0 g/dL Red Cell Distribution Width 14.4 H 11.8-14.3 % Platelet Count 462 H 140-450 10^3/uL Mean Platelet Volume 7.0 6.9-10.8 fL Neutrophils (%) (Auto) 90.4 H 37.0-80.0 % Lymphocytes (%) (Auto) 5.2 L 10.0-50.0 % Monocytes (%) (Auto) 4.0 0.0-12.0 % Eosinophils (%) (Auto) 0.1 0.0-7.0 % Basophils (%) (Auto) 0.3 0.0-2.0 % Neutrophils # (Auto) 6.8 1.6-8.6 10 ^3/uL Lymphocytes # (Auto) 0.4 0.4-5.4 10 ^3/uL Monocytes # (Auto) 0.3 0-1.3 10 ^3/uL Eosinophils # (Auto) 0 0-0.8 10 ^3/uL Basophils # (Auto) 0 0-0.2 10 ^3/uL Nucleated Red Blood Cells 0.1 % Prothrombin Time 10.5 9.3-11.8 sec Prothrombin Time INR 0.99 0.9-1.15 Activated Partial Thromboplast Time 25.9 24.5-34.5 SEC Sodium Level 134 L 136-145 mmol/L Potassium Level 5.5 H 3.5-5.1 mmol/L Chloride Level 96 L 98-107 mmol/L Carbon Dioxide Level 34 H 20-31 mmol/L Anion Gap 4 L 5-15 Blood Urea Nitrogen 15 9-23 mg/dL Creatinine 0.57 L 0.700-1.30 mg/dL Glomerular Filtration Rate Calc 115 >90 mL/min BUN/Creatinine Ratio 26.3 H 10.0-20.0 Serum Glucose 174 H 74-106 mg/dL Calcium Level 9.4 8.7-10.4 mg/dL Phosphorus Level 1.6 L 2.4-5.1 mg/dL Magnesium Level 1.8 1.6-2.6 mg/dL Blood Gas Specimen Type Arterial Blood Gas Sample Site Right radial Blood Gas Patient Temperature 37.0 Arterial Blood Date Drawn [id number] Arterial Blood pH 7.342 L 7.350-7.450 Arterial Blood Partial Pressure CO2 61.5 *H 35.0-48.0 mmHg Arterial Blood Partial Pressure O2 88.9 83.0-108.0 mmHg Arterial Blood HCO3 32.6 H 21.0-28.0 mmol/L Arterial Blood Oxygen Saturation 95.6 94.0-98.0 % Arterial Blood Base Excess 5.5 H -2.0-3.0 mmol/L Arterial Blood Oxyhemoglobin 94.5 94.0-98.0 % Arterial Blood Carboxyhemoglobin 0.3 L 0.5-1.5 % Arterial Blood Methemoglobin 0.9 0.0-1.5 % Dav Test Yes Blood Gas Total Hemoglobin 10.70 L 13.5-17.5 g/dL Blood Gas Set Respiration Rate 20.0 Blood Gas Modality Vent - ac FiO2 % 30.0 Blood Gas Tidal Volume 400.0 Blood Gas PEEP or CPAP 5.0 Blood Gas Critical Value Read Back Yes Blood Gas Notified Whom amari Camacho np Blood Gas Notified Time [id number] Blood Gas Notified By chepe Espinoza rrt Total Bilirubin < 0.2 L 0.2-1.0 mg/dL Aspartate Amino Transferase (AST) 14 13-40 U/L Alanine Aminotransferase (ALT) 20 7-40 U/L Alkaline Phosphatase 101 46-116 U/L Total Protein 6.8 5.7-8.2 g/dL Albumin 3.8 3.2-4.8 g/dL Vancomycin Level Trough 7.5 5-10 ug/mL Test 06/18/25 15:45 06/18/25 12:18 06/17/25 04:50 06/14/25 08:22 Range/Units Blood Gas Spontaneous Rate 38 Blood Gas EPAP 5 Blood Gas IPAP 15 Blood Gas Pressure Support 8 Random Vancomycin Level 11.6 H 5-10 ug/mL Specimen Drawn By Murali dba Test 06/13/25 11:25 06/10/25 13:05 06/10/25 12:55 Range/Units POC Glucose 121 H 70-106 mg/dl Hemoglobin A1c 5.9 H <5.7 % A1C Lactic Acid Level 1.7 0.4-2.0 mmol/L Urine Color Light-yellow Yellow Urine Clarity Clear Clear Urine pH 6.5 5.0-9.0 Urine Specific [place] 1.012 1.001-1.035 Urine Protein Negative Negative Urine Ketones Negative Negative Urine Blood Negative Negative /uL Urine Nitrite Negative Negative Urine Bilirubin Negative Negative Urine Urobilinogen Normal Negative mg/dL Urine Leukocyte Esterase Trace Negative /uL Urine RBC 6 0 - 4 /hpf Urine Microscopic WBC 4 0-5 /HPF Urine Squamous Epithelial Cells Few <5 /hpf Urine Bacteria None seen None Seen /hpf Urine Glucose Normal Normal mg/dL Microbiology Date/Time Source Procedure Growth Status 06/21/25 00:45 Sputum Gram Stain - Final Resulted 06/21/25 00:45 Sputum Respiratory Culture - Preliminary Resulted 06/17/25 14:35 Blood Blood Culture - Final NO GROWTH AFTER 5 DAYS OF INCUBATION. Complete 06/17/25 13:30 Voided Urine Urine Culture - Final Complete 06/14/25 15:08 Catheter Site Aerobic Culture - Final Citrobacter freundii Enterococcus faecalis Yeast, not Felicia albicans Stenotrophomonas maltophilia Complete Assessment Acute hypoxic respiratory failure. Septic shock. BPH. Diabetes mellitus. History of seizure disorder. 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 History of neurocysticercosis. COPD with exacerbation. Chronic diastolic heart failure. Bedbound status with functional paraplegia. UTI. Plan/Recommendation I agree with your ongoing assessment and care of plan. DVT and GI prophylactics. IV Solu-Medrol. Vasopressors for hemodynamic support. Additional plan as per the hospital course. Critical care time of 90 minutes provided to include time spent evaluation of patient at bedside, when appropriate patient/family education for diagnosis, treatment plan, review of pertinent medical information and discussion of care with specialty providers and PCP. Mechanical ventilator parameters, treatment and adjustments have personally been reviewed by me and treatment plan by rn residential has also been reviewed. Plan discussed with: Other ROBERT SANDERS MD Jun 25, 2025 00:09
[2025-06-25 05:44] LABS: Hematocrit 27.9 % (41.0-53.0); Hemoglobin 9.6 g/dL (13.5-17.5); Mean Corpuscular Hemoglobin 29.9 pg (28.0-32.0); Mean Corpuscular Volume 86.5 fL (80.0-100.0); Nucleated Red Blood Cells % 0.1 %
[2025-06-25 05:49] LABS: Anion Gap 8 (5-15); Calcium 9.7 mg/dL (8.7-10.4); Carbon Dioxide 29 mmol/L (20-31); Potassium 4.3 mmol/L (3.5-5.1)
[2025-06-25 05:53] LABS: Chloride 97 mmol/L (98-107); Sodium 134 mmol/L (136-145)
[2025-06-25 05:55] LABS: BUN/Creatinine Ratio 25.8 (10.0-20.0); Blood Urea Nitrogen 16 mg/dL (9-23)
--- NOTE | 2025-06-25 05:55 | DVH ---
CHEST RADIOGRAPH Indication: RESP FAILURE Technique: Single frontal view of the chest was obtained COMPARISON: XY CHEST PORTABLE on DOS: 06/24/25, XY CHEST PORTABLE on DOS: 06/24/25, XY CHEST PORTABLE on DOS: 06/23/25, XY CHEST PORTABLE on DOS: 06/22/25, XY CHEST PORTABLE on DOS: 06/21/25, XY CHEST PORTABLE on DOS: 06/24/25 FINDINGS: Lines and Tubes: Tracheostomy tube is visualized. Right PICC tip projects over the cavoatrial junctio n. Lungs: Stable interstitial opacities. Pleura: No effusion. No pneumothorax. Cardiomediastinal contours: Unremarkable Bones: No acute osseous abnormality. IMPRESSION: Tracheostomy tube is visualized. Otherwise no significant change compared to prior exam.
[2025-06-25 05:56] LABS: Magnesium 2.1 mg/dL (1.6-2.6)
[2025-06-25 05:58] LABS: Glucose 209 mg/dL (74-106)
[2025-06-25 07:40] LABS: Base Excess 1.4 mmol/L (-2.0-3.0)
--- NOTE | 2025-06-25 08:10 | DVHPN2 ---
Progress Note Date Seen: Jun 25, 2025 Has the PT tested + for MRSA If YES, has PT been informed?: Yes Medical Necessity Reason Pt with a Central, PICC or Fol: Yes The following are medically ne: PICC Line, Mock Catheter Reason for mock catheter: Strict I&O Objective vital signs Vital Sign Date Time Temp Pulse Resp B/P (MAP) Pulse Ox O2 Delivery O2 Flow Rate FiO2 06/25/25 07:06 120/63 06/25/25 06:00 30 06/25/25 06:00 20 96 Mechanical Ventilator+ 06/25/25 06:00 90 06/24/25 18:30 98.1 208.6 Total Intake and Output 06/24/25 06/24/25 06/25/25 15:00 23:00 07:00 Intake Total 311.750 ml 586.000 ml 848.0 ml Output Total 1900 ml 1400 ml Balance 311.750 ml -1314.000 ml -552.0 ml medications Current Medications Medications Dose Ordered Sig/Ezequiel Route Start Time Stop Time Status Last Admin Dose Admin Midazolam HCl 50 ml @ 1 mls/hr Q24H IV 06/10/25 13:45 06/24/25 15:10 6 MLS/HR Fentanyl Citrate 250 ml @ 2.5 mls/hr Q24H IV 06/10/25 14:45 06/25/25 07:06 20 MLS/HR Pantoprazole Sodium 40 mg BID IV 06/10/25 22:00 06/24/25 22:01 40 MG Levetiracetam 100 ml @ 400 mls/hr BID IV 06/10/25 22:00 06/24/25 22:01 400 MLS/HR Nitroglycerin 0.4 mg Q5MINP PRN SL 06/10/25 23:15 Cancel Morphine Sulfate 2 mg Q30M PRN IV 06/10/25 23:15 Cancel Nitroglycerin 0.4 mg Q5MINP PRN SL 06/11/25 00:15 Morphine Sulfate 2 mg Q30M PRN IV 06/11/25 00:15 Cancel Enoxaparin Sodium 40 mg DAILY SC 06/11/25 10:00 06/24/25 10:27 40 MG Diagnostic Test (Pha) 1 strip IQ4HR 06/11/25 16:00 Cancel Insulin Human Regular IQ4HR SC 06/11/25 16:00 Cancel Dextrose 50 ml UD PRN IV 06/11/25 13:15 Cancel Insulin Human Regular HS SC 06/11/25 22:00 Cancel Dextrose 50 ml UD PRN IV 06/11/25 14:15 Cancel Enteral Nutritional Formula 1,000 ml 40ML/HR GT 06/11/25 14:45 06/24/25 14:38 1,000 ML Diagnostic Test (Pha) 1 strip ACHS 06/11/25 22:00 06/25/25 07:07 1 STRIP Insulin Human Regular ACHS SC 06/11/25 22:00 06/25/25 07:00 6 UNITS Dextrose 50 ml UD PRN IV 06/11/25 17:30 Albuterol 2.5 mg Q6HR NEB 06/12/25 12:00 06/25/25 05:48 2.5 MG Ipratropium [place] 0.5 mg Q6HR NEB 06/12/25 12:00 06/25/25 05:48 0.5 MG Norepinephrine Bitartrate 250 ml @ 1.875 mls/ hr Q24H IV 06/14/25 07:45 06/24/25 01:18 5.625 MLS/HR Sennosides 8.6 mg HS PO 06/15/25 22:00 06/24/25 22:01 8.6 MG Polyethylene Glycol 17 gm DAILY PO 06/16/25 10:00 06/24/25 10:27 17 GM Acetaminophen 650 mg Q6HP PRN PO 06/16/25 15:30 06/18/25 23:27 650 MG Sodium Chloride 10 ml QSHIFT@10,22 IV 06/19/25 22:00 06/24/25 22:01 10 ML Lactulose 30 ml DAILY PO 06/21/25 10:00 06/24/25 10:26 30 ML Trimethoprim/ Sulfamethoxazole 10 ml @ 0 mls/hr PER PHARMACY IV 06/20/25 14:45 Trimethoprim/ Sulfamethoxazole 10 ml @ 0 mls/hr PER PHARMACY IV 06/20/25 15:15 UNV Trimethoprim/ Sulfamethoxazole 20 ml/Dextrose 520 ml @ 346.667 mls/hr Q12H IV 06/20/25 17:00 06/25/25 07:09 346.667 MLS/HR Zirconium Oxide 10 gm Q8HR GT 06/24/25 14:00 06/25/25 07:08 10 GM Methylprednisolone Sodium Succinate 20 mg BID IV 06/24/25 22:00 06/24/25 22:00 20 MG laboratory and microbiology Laboratory Tests 06/25/25 05:06 Test 06/25/25 05:06 Range/Units Serum Glucose 209 H 74-106 mg/dL Problem List/Assessment/Plan Problem List/Assessment/Plan 06/25/25 tracheostomy site dry and clean, no issues reported, cxr with tracheostomy well above the bob,both lungs fully aerated, , will sign off, please recall if needed Plan discussed with: Other Dietary Evaluation Review Comments: Nutrition Recommendation: 1) TF Jevity 1.2Cal @ 45ml/hr x 24hr (goal) along with Pro-stat 1 pk daily. Start @ 20ml/hr, increase 10ml/hr Q4H until goal is reached. TF @ goal volume along with Pro-stat provide 1396 kcal (100% energy needs), 75 gm protein (100% protein needs), 872 ml free water. 2) Water flush 130ml Q6H if allowed, adjust PRN 3) TPN if NPO >7 days 4) Monitor NPO status, lab values, wt trend, I/O Expected Outcomes/Goals: To meet >75% estimated needs Lab values to improve Fu 2-3 days Sepsis reassessment post fluid Is the fluid challenge complet: No (PROVIDER ORDERED NO FLUID CHALLENGE DUE TO RISK OF FLUID OVERLOAD) Date of Reassessment: Jun 10, 2025 Time of Reassessment: 183 Blood Culture Time: 1215 Time Antibiotics Given: 1215 Systolic BP: 94 Diastolic BP: 51 Blood Pressure Mean: 65 Respiration: 20 Respiratory Effort: Non-Labored, ET Tube Respiratory Pattern: Regular Oxygen Saturation: 95 Pulse Rate: 93 Pulse Location: Radial Pulse Strength: Normal Pulse Assessment Method: It Architecture Analyst Pulse Rhythm: Regular Capillary Refill: < 3 seconds Heart Sounds: S1 & S2 Breath sounds: Diminished Skin Moisture: Dry Skin Tugor: WNL Skin Color: WNL DUNIA DE LEÓN MD Jun 25, 2025 08:10
--- NOTE | 2025-06-25 11:30 | DVHPN2 ---
Progress Note Date Seen: Jun 25, 2025 Has the PT tested + for MRSA If YES, has PT been informed?: Yes Medical Necessity Reason Pt with a Central, PICC or Fol: Yes The following are medically ne: PICC Line, Mock Catheter Reason for mock catheter: Strict I&O Subjective Patient reports: No new complaints Review of Systems: HEENT:Normal, CVS:Normal, RESPIRATORY:Normal, GI:Normal, :Normal, MSK:Normal, NEURO:Normal Objective vital signs Vital Sign Date Time Temp Pulse Resp B/P (MAP) Pulse Ox O2 Delivery O2 Flow Rate FiO2 06/25/25 11:07 91/40 06/25/25 10:10 102 20 98 30 06/25/25 08:15 97.5 207.5 06/25/25 08:00 Mechanical Ventilator+ Total Intake and Output 06/24/25 06/24/25 06/25/25 15:00 23:00 07:00 Intake Total 311.750 ml 586.000 ml 848.0 ml Output Total 1900 ml 1400 ml Balance 311.750 ml -1314.000 ml -552.0 ml medications Current Medications Medications Dose Ordered Sig/Ezequiel Route Start Time Stop Time Status Last Admin Dose Admin Midazolam HCl 50 ml @ 1 mls/hr Q24H IV 06/10/25 13:45 06/25/25 09:04 6 MLS/HR Fentanyl Citrate 250 ml @ 2.5 mls/hr Q24H IV 06/10/25 14:45 06/25/25 07:06 20 MLS/HR Pantoprazole Sodium 40 mg BID IV 06/10/25 22:00 06/25/25 11:03 40 MG Levetiracetam 100 ml @ 400 mls/hr BID IV 06/10/25 22:00 06/25/25 11:04 400 MLS/HR Nitroglycerin 0.4 mg Q5MINP PRN SL 06/10/25 23:15 Cancel Morphine Sulfate 2 mg Q30M PRN IV 06/10/25 23:15 Cancel Nitroglycerin 0.4 mg Q5MINP PRN SL 06/11/25 00:15 Morphine Sulfate 2 mg Q30M PRN IV 06/11/25 00:15 Cancel Enoxaparin Sodium 40 mg DAILY SC 06/11/25 10:00 06/25/25 11:05 40 MG Diagnostic Test (Pha) 1 strip IQ4HR 06/11/25 16:00 Cancel Insulin Human Regular IQ4HR SC 06/11/25 16:00 Cancel Dextrose 50 ml UD PRN IV 06/11/25 13:15 Cancel Insulin Human Regular HS SC 06/11/25 22:00 Cancel Dextrose 50 ml UD PRN IV 06/11/25 14:15 Cancel Enteral Nutritional Formula 1,000 ml 40ML/HR GT 06/11/25 14:45 06/24/25 14:38 1,000 ML Diagnostic Test (Pha) 1 strip ACHS 06/11/25 22:00 06/25/25 07:07 1 STRIP Insulin Human Regular ACHS SC 06/11/25 22:00 06/25/25 07:00 6 UNITS Dextrose 50 ml UD PRN IV 06/11/25 17:30 Albuterol 2.5 mg Q6HR NEB 06/12/25 12:00 06/25/25 05:48 2.5 MG Ipratropium [place] 0.5 mg Q6HR NEB 06/12/25 12:00 06/25/25 05:48 0.5 MG Norepinephrine Bitartrate 250 ml @ 1.875 mls/ hr Q24H IV 06/14/25 07:45 06/25/25 11:07 5.625 MLS/HR Sennosides 8.6 mg HS PO 06/15/25 22:00 06/24/25 22:01 8.6 MG Polyethylene Glycol 17 gm DAILY PO 06/16/25 10:00 06/25/25 11:02 17 GM Acetaminophen 650 mg Q6HP PRN PO 06/16/25 15:30 06/18/25 23:27 650 MG Sodium Chloride 10 ml QSHIFT@10,22 IV 06/19/25 22:00 06/25/25 11:04 10 ML Lactulose 30 ml DAILY PO 06/21/25 10:00 06/25/25 11:02 30 ML Trimethoprim/ Sulfamethoxazole 10 ml @ 0 mls/hr PER PHARMACY IV 06/20/25 14:45 Trimethoprim/ Sulfamethoxazole 10 ml @ 0 mls/hr PER PHARMACY IV 06/20/25 15:15 UNV Trimethoprim/ Sulfamethoxazole 20 ml/Dextrose 520 ml @ 346.667 mls/hr Q12H IV 06/20/25 17:00 06/25/25 07:09 346.667 MLS/HR Zirconium Oxide 10 gm Q8HR GT 06/24/25 14:00 06/25/25 07:08 10 GM Methylprednisolone Sodium Succinate 20 mg BID IV 06/24/25 22:00 06/25/25 11:04 20 MG Examination: GENERAL:Normal, HEENT:Normal, NECK:Normal, LUNGS:Normal, LUNGS:Abnormal (trach+), CVS:Normal, ABDOMEN:Normal, ABDOMEN:Abnormal (peg+), MSK:Normal, SKIN:Normal, NEURO:Normal, :Normal laboratory and microbiology Laboratory Tests 06/25/25 05:06 Test 06/25/25 05:06 Range/Units Serum Glucose 209 H 74-106 mg/dL Microbiology Date/Time Source Procedure Growth Status 06/21/25 00:45 Sputum Gram Stain - Final Resulted 06/21/25 00:45 Sputum Respiratory Culture - Preliminary Resulted 06/17/25 14:35 Blood Blood Culture - Final NO GROWTH AFTER 5 DAYS OF INCUBATION. Complete 06/17/25 13:30 Voided Urine Urine Culture - Final Complete 06/14/25 15:08 Catheter Site Aerobic Culture - Final Citrobacter freundii Enterococcus faecalis Yeast, not Felicia albicans Stenotrophomonas maltophilia Complete Problem List/Assessment/Plan Problem List/Assessment/Plan * acute resp failure: cont acv, cpap trial- reintubated- s/p trach * septic shock with pneumonia ?aspiration- a baumni, staph aureus, s maltophila: iv bactrim * BPH * Diabetes mellitus: ssi * History of seizure disorder : cont meds * Previous M[employer] shunt. * History of neurocysticercosis. * COPD with exacerbation: iv steroids * Chronic diastolic heart failure. * Bedbound status with functional paraplegia. * History of PEG feedings * uti due to c freundi: iv bactrim long dw family regards further treatment long dw family- reviewed labs and plan of care Plan discussed with: Spouse My Orders My Orders Orders - GABRIELLE BOLAÑOS MD Procedure Category Date Status Time Sodium Zirconium PHA 06/24/25 In Process Cyclosilicate 14:00 Chest Portable XY 06/25/25 Resulted 06:00 Abg W/ Co-Ox RT 06/25/25 Logged 06:00 * Sap Basis Architect CONS 06/24/25 Transmitted Consult Methylprednisolone PHA 06/24/25 In Process Sod Succ (Solu Medrol 22:00 Chest Percussion Tx RT 06/24/25 Logged Initi 18:59 Levetiracetam Oral PHA 06/25/25 Verified Solution (Keppra Oral 22:00 Basic Metabolic Panel LAB 06/26/25 Verified 06:00 Complete Blood Count LAB 06/26/25 Verified 06:00 Dietary Evaluation Review Comments: Nutrition Recommendation: 1) TF Jevity 1.2Cal @ 45ml/hr x 24hr (goal) along with Pro-stat 1 pk daily. Start @ 20ml/hr, increase 10ml/hr Q4H until goal is reached. TF @ goal volume along with Pro-stat provide 1396 kcal (100% energy needs), 75 gm protein (100% protein needs), 872 ml free water. 2) Water flush 130ml Q6H if allowed, adjust PRN 3) TPN if NPO >7 days 4) Monitor NPO status, lab values, wt trend, I/O Expected Outcomes/Goals: To meet >75% estimated needs Lab values to improve Fu 2-3 days Critical Care Time (mins): 41 (critical care time excluding procedures is 41 mins) Sepsis reassessment post fluid Is the fluid challenge complet: No (PROVIDER ORDERED NO FLUID CHALLENGE DUE TO RISK OF FLUID OVERLOAD) Date of Reassessment: Jun 10, 2025 Time of Reassessment: 1830 Blood Culture Time: 1215 Time Antibiotics Given: 1215 Systolic BP: 94 Diastolic BP: 51 Blood Pressure Mean: 65 Respiration: 20 Respiratory Effort: Non-Labored, ET Tube Respiratory Pattern: Regular Oxygen Saturation: 95 Pulse Rate: 93 Pulse Location: Radial Pulse Strength: Normal Pulse Assessment Method: Body Worker Pulse Rhythm: Regular Capillary Refill: < 3 seconds Heart Sounds: S1 & S2 Breath sounds: Diminished Skin Moisture: Dry Skin Tugor: WNL Skin Color: WNL Date of Service: Jun 25, 2025 Billing Provider: GABRIELLE BOLAÑOS MD Common Visit Codes: [id number] CARE 30-74 MIN GABRIELLE BOLAÑOS MD Jun 25, 2025 11:30
--- NOTE | 2025-06-25 23:15 | DVHPN2 ---
Progress Note - Dictate Date Seen: Jun 25, 2025 Has the PT tested + for MRSA If YES, has PT been informed?: Yes Medical Necessity Reason Pt with a Central, PICC or Fol: Yes The following are medically ne: PICC Line, Mock Catheter Reason for mock catheter: Strict I&O Subjective Patient was seen and evaluated in follow up in the ICU. Patient is intubated and sedated on ventilator. 30% FiO2. Patient receiving vasopressors for hemodynamic support. HGB 9.6, HCT 27.9. Chest x-ray shows stable interstitial opacities. vital signs Vital Sign Date Time Temp Pulse Resp B/P (MAP) Pulse Ox O2 Delivery O2 Flow Rate FiO2 06/25/25 22:47 102 23 107/55 (72) 97 30 06/25/25 19:15 99.0 210.2 06/25/25 18:00 Mechanical Ventilator+ Total Intake and Output 06/24/25 06/24/25 06/25/25 15:00 23:00 07:00 Intake Total 311.750 ml 586.000 ml 848.0 ml Output Total 1900 ml 1400 ml Balance 311.750 ml -1314.000 ml -552.0 ml medications Current Medications Medications Dose Ordered Sig/Ezequiel Route Start Time Stop Time Status Last Admin Dose Admin Midazolam HCl 50 ml @ 1 mls/hr Q24H IV 06/10/25 13:45 06/25/25 09:04 6 MLS/HR Fentanyl Citrate 250 ml @ 2.5 mls/hr Q24H IV 06/10/25 14:45 06/25/25 19:20 20 MLS/HR Pantoprazole Sodium 40 mg BID IV 06/10/25 22:00 06/25/25 11:03 40 MG Nitroglycerin 0.4 mg Q5MINP PRN SL 06/10/25 23:15 Cancel Morphine Sulfate 2 mg Q30M PRN IV 06/10/25 23:15 Cancel Nitroglycerin 0.4 mg Q5MINP PRN SL 06/11/25 00:15 Morphine Sulfate 2 mg Q30M PRN IV 06/11/25 00:15 Cancel Enoxaparin Sodium 40 mg DAILY SC 06/11/25 10:00 06/25/25 11:05 40 MG Diagnostic Test (Pha) 1 strip IQ4HR 06/11/25 16:00 Cancel Insulin Human Regular IQ4HR SC 06/11/25 16:00 Cancel Dextrose 50 ml UD PRN IV 06/11/25 13:15 Cancel Insulin Human Regular HS SC 06/11/25 22:00 Cancel Dextrose 50 ml UD PRN IV 06/11/25 14:15 Cancel Enteral Nutritional Formula 1,000 ml 40ML/HR GT 06/11/25 14:45 06/24/25 14:38 1,000 ML Diagnostic Test (Pha) 1 strip ACHS 06/11/25 22:00 06/25/25 17:43 1 STRIP Insulin Human Regular ACHS SC 06/11/25 22:00 06/25/25 17:53 4 UNITS Dextrose 50 ml UD PRN IV 06/11/25 17:30 Albuterol 2.5 mg Q6HR NEB 06/12/25 12:00 06/25/25 18:16 2.5 MG Ipratropium [place] 0.5 mg Q6HR NEB 06/12/25 12:00 06/25/25 18:16 0.5 MG Norepinephrine Bitartrate 250 ml @ 1.875 mls/ hr Q24H IV 06/14/25 07:45 06/25/25 11:07 5.625 MLS/HR Sennosides 8.6 mg HS PO 06/15/25 22:00 06/24/25 22:01 8.6 MG Polyethylene Glycol 17 gm DAILY PO 06/16/25 10:00 06/25/25 11:02 17 GM Acetaminophen 650 mg Q6HP PRN PO 06/16/25 15:30 06/18/25 23:27 650 MG Sodium Chloride 10 ml QSHIFT@10,22 IV 06/19/25 22:00 06/25/25 11:04 10 ML Lactulose 30 ml DAILY PO 06/21/25 10:00 06/25/25 11:02 30 ML Trimethoprim/ Sulfamethoxazole 10 ml @ 0 mls/hr PER PHARMACY IV 06/20/25 14:45 Trimethoprim/ Sulfamethoxazole 10 ml @ 0 mls/hr PER PHARMACY IV 06/20/25 15:15 UNV Trimethoprim/ Sulfamethoxazole 20 ml/Dextrose 520 ml @ 346.667 mls/hr Q12H IV 06/20/25 17:00 06/25/25 17:43 346.667 MLS/HR Methylprednisolone Sodium Succinate 20 mg BID IV 06/24/25 22:00 06/25/25 11:04 20 MG Levetiracetam 500 mg BID GT 06/25/25 22:00 objective GENERAL: Ill appearing, intubated on vent. EYES: PERRL, EOMI. Anicteric. HENT: Moist mucous membranes. LUNGS: Decreased breath sounds. CARDIOVASCULAR: Regular rate and rhythm. ABDOMEN: Soft, non-tender and non-distended. EXTREMITIES: No edema. SKIN: Warm, dry. laboratory and microbiology Laboratory Tests 06/25/25 05:06 Test 06/25/25 05:06 Range/Units Serum Glucose 209 H 74-106 mg/dL Problem List Acute hypoxic respiratory failure. Septic shock. BPH. Diabetes mellitus. History of seizure disorder. Previous [employer] shunt. History of neurocysticercosis. COPD with exacerbation. Chronic diastolic heart failure. Bedbound status with functional paraplegia. UTI. Assessment/Plan Continued all current supportive medical care. DVT and GI prophylactics. IV Solu-Medrol. Vasopressors for hemodynamic support. Additional plan as per the hospital course. Critical care time of 45 minutes provided to include time spent evaluation of patient at bedside, when appropriate patient/family education for diagnosis, treatment plan, review of pertinent medical information and discussion of care with specialty providers and PCP. Mechanical ventilator parameters, treatment and adjustments have personally been reviewed by me and treatment plan by consultative sales associate has also been reviewed. Dietary Evaluation Review Comments: Nutrition Recommendation: 1) TF Jevity 1.2Cal @ 45ml/hr x 24hr (goal) along with Pro-stat 1 pk daily. Start @ 20ml/hr, increase 10ml/hr Q4H until goal is reached. TF @ goal volume along with Pro-stat provide 1396 kcal (100% energy needs), 75 gm protein (100% protein needs), 872 ml free water. 2) Water flush 130ml Q6H if allowed, adjust PRN 3) TPN if NPO >7 days 4) Monitor NPO status, lab values, wt trend, I/O Expected Outcomes/Goals: To meet >75% estimated needs Lab values to improve Fu 2-3 days Plan discussed with: Other Is the fluid challenge complet: No (PROVIDER ORDERED NO FLUID CHALLENGE DUE TO RISK OF FLUID OVERLOAD) Date of Reassessment: Jun 10, 2025 Time of Reassessment: 183 Blood Culture Time: 1215 Time Antibiotics Given: 1215 Systolic BP: 94 Diastolic BP: 51 Blood Pressure Mean: 65 Respiration: 20 Respiratory Effort: Non-Labored, ET Tube Respiratory Pattern: Regular Oxygen Saturation: 95 Pulse Rate: 93 Pulse Location: Radial Pulse Strength: Normal Pulse Assessment Method: Visual Designer Pulse Rhythm: Regular Capillary Refill: < 3 seconds Heart Sounds: S1 & S2 Breath sounds: Diminished Skin Moisture: Dry Skin Tugor: WNL Skin Color: WNL ROBERT SANDERS MD Jun 25, 2025 23:15
[2025-06-26] VITALS (90 sets, daily range): BP systolic 79–124; BP diastolic 38–67; PULSE 99–120; RESP 16–31; TEMP 47.5; O2SAT 90–100
[2025-06-26 05:18] LABS: Hematocrit 27.2 % (41.0-53.0); Hemoglobin 9.3 g/dL (13.5-17.5); Mean Corpuscular Hemoglobin 29.6 pg (28.0-32.0); Mean Corpuscular Volume 86.3 fL (80.0-100.0); Nucleated Red Blood Cells % 0.1 %
[2025-06-26 05:19] LABS: Anion Gap 10 (5-15); Calcium 9.7 mg/dL (8.7-10.4); Carbon Dioxide 25 mmol/L (20-31); Chloride 98 mmol/L (98-107); Potassium 4.2 mmol/L (3.5-5.1)
[2025-06-26 05:25] LABS: BUN/Creatinine Ratio 25.0 (10.0-20.0); Blood Urea Nitrogen 17 mg/dL (9-23)
[2025-06-26 05:26] LABS: Glucose 196 mg/dL (74-106); Sodium 133 mmol/L (136-145)
[2025-06-26 07:00] LABS: Base Excess 0.0 mmol/L (-2.0-3.0)
--- NOTE | 2025-06-26 07:54 | DVH ---
CHEST RADIOGRAPH Indication: Intubated Technique: Single frontal view of the chest was obtained Comparison: XY CHEST PORTABLE on DOS: 06/25/25 FINDINGS: Lines and Tubes: There is a right PICC with its tip terminating in the superior vena cava. The trach eostomy tube is unchanged. Lungs: Bilateral interstitial prominence similar to prior study. No focal consolidation. Pleura: No effusion. No pneumothorax. Cardiomediastinal contours: Unremarkable Bones: No acute osseous abnormality. Upper abdomen: Lucencies in the left upper quadrant. IMPRESSION: 1. Bilateral interstitial prominence suggestive of pulmonary vascular congestion. 2. Lucencies in the left upper quadrant and may be related to gas in dilated bowel loops. Pneumoperi toneum is not excluded. Upright abdominal radiographs may be obtained or alternatively CT for furthe r evaluation.
--- NOTE | 2025-06-26 10:34 | DVHDS2 ---
Discharge Summary Date of Admission Jun 10, 2025 at 23:11 Date of Discharge: Jun 26, 2025 Labs/Diagnostic Data: Laboratory Results Test 06/26/25 06:53 06/26/25 04:30 06/25/25 05:06 06/24/25 04:42 Blood Gas Specimen Type Arterial Blood Gas Sample Site Right radial Blood Gas Patient Temperature 37.0 Arterial Blood Date Drawn [id number] Arterial Blood pH 7.479 (7.350-7.450) Arterial Blood Partial Pressure CO2 31.8 mmHg (35.0-48.0) Arterial Blood Partial Pressure O2 101.0 mmHg (83.0-108.0) Arterial Blood HCO3 23.1 mmol/L (21.0-28.0) Arterial Blood Oxygen Saturation 97.2 % (94.0-98.0) Arterial Blood Base Excess 0.0 mmol/L (-2.0-3.0) Arterial Blood Oxyhemoglobin 95.9 % (94.0-98.0) Arterial Blood Carboxyhemoglobin 0.3 % (0.5-1.5) Arterial Blood Methemoglobin 1.0 % (0.0-1.5) Dav Test Modified Blood Gas Total Hemoglobin 9.20 g/dL (13.5-17.5) Blood Gas Set Respiration Rate 20.0 Blood Gas Modality Vent - ac Blood Gas Spontaneous Rate 26 FiO2 % 30.0 Blood Gas Tidal Volume 400.0 Blood Gas PEEP or CPAP 5.0 White Blood Count 8.7 10^3/uL (4.4-10.8) Red Blood Count 3.15 10^6/uL (4.5-5.90) Hemoglobin 9.3 g/dL (13.5-17.5) Hematocrit 27.2 % (41.0-53.0) Mean Corpuscular Volume 86.3 fL (80.0-100.0) Mean Corpuscular Hemoglobin 29.6 pg (28.0-32.0) Mean Corpuscular Hemoglobin Concent 34.3 g/dL (32.0-36.0) Red Cell Distribution Width 15.1 % (11.8-14.3) Platelet Count 531 10^3/uL (140-450) Mean Platelet Volume 7.0 fL (6.9-10.8) Neutrophils (%) (Auto) 83.7 % (37.0-80.0) Lymphocytes (%) (Auto) 7.8 % (10.0-50.0) Monocytes (%) (Auto) 8.5 % (0.0-12.0) Eosinophils (%) (Auto) 0.0 % (0.0-7.0) Basophils (%) (Auto) 0.0 % (0.0-2.0) Neutrophils # (Auto) 7.2 10 ^3/uL (1.6-8.6) Lymphocytes # (Auto) 0.7 10 ^3/uL (0.4-5.4) Monocytes # (Auto) 0.7 10 ^3/uL (0-1.3) Eosinophils # (Auto) 0 10 ^3/uL (0-0.8) Basophils # (Auto) 0 10 ^3/uL (0-0.2) Nucleated Red Blood Cells 0.1 % Sodium Level 133 mmol/L (136-145) Potassium Level 4.2 mmol/L (3.5-5.1) Chloride Level 98 mmol/L (98-107) Carbon Dioxide Level 25 mmol/L (20-31) Anion Gap 10 (5-15) Blood Urea Nitrogen 17 mg/dL (9-23) Creatinine 0.68 mg/dL (0.700-1.30) Glomerular Filtration Rate Calc 109 mL/min (>90) BUN/Creatinine Ratio 25.0 (10.0-20.0) Serum Glucose 196 mg/dL (74-106) Calcium Level 9.7 mg/dL (8.7-10.4) Phosphorus Level 2.9 mg/dL (2.4-5.1) Magnesium Level 2.1 mg/dL (1.6-2.6) Prothrombin Time 10.5 sec (9.3-11.8) Prothrombin Time INR 0.99 (0.9-1.15) Activated Partial Thromboplast Time 25.9 SEC (24.5-34.5) Test 06/23/25 07:31 06/23/25 04:29 06/21/25 08:27 06/18/25 15:45 Blood Gas Critical Value Read Back Yes Blood Gas Notified Whom amari Camacho np Blood Gas Notified Time [id number] Blood Gas Notified By chepe Espinoza supervisor coal handling Total Bilirubin < 0.2 mg/dL (0.2-1.0) Aspartate Amino Transferase (AST) 14 U/L (13-40) Alanine Aminotransferase (ALT) 20 U/L (7-40) Alkaline Phosphatase 101 U/L (46-116) Total Protein 6.8 g/dL (5.7-8.2) Albumin 3.8 g/dL (3.2-4.8) Vancomycin Level Trough 7.5 ug/mL (5-10) Blood Gas EPAP 5 Blood Gas IPAP 15 Test 06/18/25 12:18 06/17/25 04:50 06/14/25 08:22 06/13/25 11:25 Blood Gas Pressure Support 8 Random Vancomycin Level 11.6 ug/mL (5-10) Specimen Drawn By Murali it investment/portfolio manager POC Glucose 121 mg/dl (70-106) Test 06/10/25 13:05 06/10/25 12:55 Hemoglobin A1c 5.9 % A1C (<5.7) Lactic Acid Level 1.7 mmol/L (0.4-2.0) Urine Color Light-yellow (Yellow) Urine Clarity Clear (Clear) Urine pH 6.5 (5.0-9.0) Urine Specific [place] 1.012 (1.001-1.035) Urine Protein Negative (Negative) Urine Ketones Negative (Negative) Urine Blood Negative /uL (Negative) Urine Nitrite Negative (Negative) Urine Bilirubin Negative (Negative) Urine Urobilinogen Normal mg/dL (Negative) Urine Leukocyte Esterase Trace /uL (Negative) Urine RBC 6 /hpf (0 - 4) Urine Microscopic WBC 4 /HPF (0-5) Urine Squamous Epithelial Cells Few /hpf (<5) Urine Bacteria None seen /hpf (None Seen) Urine Glucose Normal mg/dL (Normal) Other Laboratory Tests 06/26/25 04:30 Brief Hx & Hospital Course: SEE DICTATED NOTE Condition at Discharge: Fair Final Diagnosis/Problems List RESP FAILURE Discharge Disposition: Inpatient Rehab Facility Discharge Instruct/Medications Diet: See Comment Diet comment: TUBE FEEDINGS Activity: No Restrictions, As Tolerated Follow Up/Referral: SHERRIE SANCHEZ PCP/NEUROLOGY Medications: PER MAR Scheduled Alendronate Sodium (Alendronate Sodium), 1 TAB PO QWEEKLY, (Reported) Cholecalciferol (Vitamin D3), 5,000 UNIT PO DAILY, (Reported) Cholecalciferol (D-5000), 1 TAB PO DAILY, (Reported) Clotrimazole (Clotrimazole), 1 APPLIC TOP Q12HR, (Reported) Clotrimazole (Topical) (Clotrimazole Antifungal), 1 TOP DAILY, (Reported) Cyanocobalamin (Vitamin B12), 1,000 MCG PO DAILY, (Reported) Finasteride (Finasteride), 1 TAB PO DAILY, (Reported) Lnkelwvefkj-Cmmctjurmdrj-Erieh (Trelegy Ellipta 100-62.5-25 Mcg/INH), 1 PUFF INH DAILY, (Reported) Folic Acid (Folic Acid), 1 MG PO DAILY, (Reported) Furosemide (Furosemide), 1 TAB PO DAILY, (Reported) Magnesium Oxide (Magnesium Oxide), 1 TAB PO DAILY, (Reported) Magnesium Oxide (Mag-Ox), 1 TAB PO DAILY, (Reported) Niacin (Niacin Er), 500 MG PO DAILY, (Reported) Ydlyn-8-Lobo Ethyl Esters (Gommy-4-Gzhd Ethyl Esters), 1 CAP PO BID, (Reported) Polyethylene Glycol 3350 (Miralax), 17 GM GT DAILY Potassium Bicarbonate-Citric A (Effer-K), 1 TAB PO DAILY, (Reported) Pravastatin Sodium (Pravachol Tablet), 10 TAB PO DAILY, (Reported) Pravastatin Sodium (Pravachol Tablet), 10 MG GT DAILY, (Reported) Prednisone (Prednisone), 1 TAB PO DAILY, (Reported) Prednisone (Prednisone), 10 MG PO QAM Prednisone (Prednisone), 20 MG PO QAM Sulfamethoxazole-Trimethoprim (Bactrim), 10 ML GT BID Tamsulosin Hcl (Tamsulosin Hcl), 0.4 MG PO QPM, (Reported) Timolol Maleate (Timolol Maleate Ophthalmi), Unknown Dose EACHEYE QAM, (Reported) Zinc W/ Vitamin C (Vitamin C+Zinc 15-60 mg), 1 TAB PO DAILY, (Reported) Scheduled PRN Acetaminophen (Acetaminophen), 500 MG PO Q6HP PRN for MILD PAIN, (Reported) Ipratropium-Albuterol (Ipratropium [place]/Albut), 1 HALEY IN Q4HPRN PRN for SHORTNESS OF BREATH, (Reported) Miscellaneous Medications Acetaminophen (Acetaminophen Extra Stren), PO, (Reported) Budesonide (Inhalation) (Budesonide), 0.5 MG, (Reported) Diclofenac Sodium (Topical) (Diclofenac Sodium), 3 % EX, (Reported) Ketoconazole (Ketoconazole), 1 APPLIC TOP, (Reported) Levetiracetam (Levetiracetam), ML PO, (Reported) Lidocaine (Ztlido), 1.8 % EX, (Reported) Mupirocin Calcium (Topical) (Mupirocin), 2 % EX, (Reported) Niacin (Niacin), PO, (Reported) Nutritional Supplements (Ensure Plus Van), PO, (Reported) [place]-3 Fatty Acids ([place]-3), Unknown Dose PO, (Reported) Pantoprazole Sodium (Pantoprazole Sodium), 40 MG, (Reported) Timolol Maleate (Ophth) (Timolol Maleate), EACHEYE, (Reported) Discharge Statement: "Patient was advised to return to the ER or call 911 if any headaches, dizziness, shortness of breath, chest pain, abdominal pain, bleeding, fevers, or worsening of medical condition. Patient was counseled about treatment plan, medications, possible side effects, patientverbalized understanding. All questions were answered to the best of my ability. This discharge took greater then 30 minutes in planning, reviewing documentation, counseling the patient, and discussing with other team members." ASSESSMENT ASSESSMENT Assessment RESP FAILURE Date of Service: Jun 26, 2025 Billing Provider: GABRIELLE BOLAÑOS MD Common Visit Codes: 36007-[id number] CARE 30-74 MIN GABRIELLE BOLAÑOS MD Jun 26, 2025 10:34
[2025-06-26] MEDS ORDERED: MORPHINE SULFATE INJ 2 MG/ml SYRG IV PRN (10:45)
--- NOTE | 2025-06-26 10:55 | DVHDS ---
DATE OF DISCHARGE: 06/26/2025 TRANSFER SUMMARY DATE OF TRANSFER: 06/26/2025 The patient is a 54-year-old gentleman who was admitted with history of increasing shortness of breath and elevated temperature and requiring subsequent intubation and mechanical ventilation. The patient has a history of previous neurocysticercosis, previous hydrocephalus, seizure disorder, hypertension, BPH, and previous aspiration status post PEG placement. HOSPITAL COURSE: The patient had sputum cultures that grew Staph aureus, Acinetobacter baumannii, and Stenotrophomonas maltophilia sensitive to intravenous Bactrim. The patient was given a trial of extubation but failed and needed to be reintubated. After extensive discussion with family, the patient had a tracheostomy placed on 06/24/2025. The patient's chest x-ray has shown bilateral infiltrates. The patient has been on pressors. His white count has improved. The patient currently is on 30% oxygen. The patient will now be transferred to a long-term acute care facility for further management. I have discussed this plan in detail with the at the bedside. FINAL DIAGNOSES: * Acute respiratory failure, status post tracheostomy. * Septic shock with pneumonia, questionably aspiration secondary to acinetobacter, stenotrophomonas, and Staph aureus. * BPH. * Diabetes mellitus. * History of seizure disorder. 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 * History of neurocysticercosis. * COPD exacerbation. * Chronic diastolic heart failure. * Bedbound status with functional paraplegia. * UTI due to Citrobacter freundii. * Status post previous PEG placement. Critical care time spent including discussion with family and paperwork was 46 minutes. I also gave report to Dr. Arellano at [facility]. MD MALINDA Briseno/NAZIA TID: [id number] RECEIPT: [id number]
--- NOTE | 2025-06-26 23:41 | DVHPN2 ---
Progress Note - Dictate Date Seen: Jun 26, 2025 Has the PT tested + for MRSA If YES, has PT been informed?: Yes Medical Necessity Reason Pt with a Central, PICC or Fol: Yes The following are medically ne: PICC Line, Mock Catheter Reason for mock catheter: Strict I&O Subjective Patient was seen and evaluated in follow up in the ICU. Patient is intubated and sedated on ventilator. 30% FiO2. Patient is able to follow simple commands. HGB 9.3, HCT 27.2, NA 133. Chest x-ray shows bilateral interstitial prominence suggestive of pulmonary vascular congestion. Lucencies in the left upper quadrant and may be related to gas in dilated bowel loops. Patient is pending transfer to [place]. vital signs Vital Sign Date Time Temp Pulse Resp B/P (MAP) Pulse Ox O2 Delivery O2 Flow Rate FiO2 06/26/25 12:37 110 27 107/49 (68) 93 30 06/26/25 11:00 99.3 210.7 06/26/25 10:00 Mechanical Ventilator+ Total Intake and Output 06/25/25 06/25/25 06/26/25 15:00 23:00 07:00 Intake Total 311.750 ml 751 ml 720 ml Output Total 1500 ml 1300 ml Balance 311.750 ml -749 ml -580 ml medications Current Medications Medications Dose Ordered Sig/Ezequiel Route Start Time Stop Time Status Last Admin Dose Admin Midazolam HCl 50 ml @ 1 mls/hr Q24H IV 06/10/25 13:45 06/25/25 09:04 6 MLS/HR Fentanyl Citrate 250 ml @ 2.5 mls/hr Q24H IV 06/10/25 14:45 06/26/25 06:35 20 MLS/HR Pantoprazole Sodium 40 mg BID IV 06/10/25 22:00 06/26/25 09:49 40 MG Nitroglycerin 0.4 mg Q5MINP PRN SL 06/10/25 23:15 Cancel Morphine Sulfate 2 mg Q30M PRN IV 06/10/25 23:15 Cancel Nitroglycerin 0.4 mg Q5MINP PRN SL 06/11/25 00:15 Morphine Sulfate 2 mg Q30M PRN IV 06/11/25 00:15 Cancel Enoxaparin Sodium 40 mg DAILY SC 06/11/25 10:00 06/26/25 09:50 40 MG Diagnostic Test (Pha) 1 strip IQ4HR 06/11/25 16:00 Cancel Insulin Human Regular IQ4HR SC 06/11/25 16:00 Cancel Dextrose 50 ml UD PRN IV 06/11/25 13:15 Cancel Insulin Human Regular HS SC 06/11/25 22:00 Cancel Dextrose 50 ml UD PRN IV 06/11/25 14:15 Cancel Enteral Nutritional Formula 1,000 ml 40ML/HR GT 06/11/25 14:45 06/26/25 07:48 1,000 ML Diagnostic Test (Pha) 1 strip ACHS 06/11/25 22:00 06/26/25 12:17 1 STRIP Insulin Human Regular ACHS SC 06/11/25 22:00 06/26/25 12:19 2 UNITS Dextrose 50 ml UD PRN IV 06/11/25 17:30 Albuterol 2.5 mg Q6HR NEB 06/12/25 12:00 06/26/25 12:30 2.5 MG Ipratropium [place] 0.5 mg Q6HR NEB 06/12/25 12:00 06/26/25 12:30 0.5 MG Norepinephrine Bitartrate 250 ml @ 1.875 mls/ hr Q24H IV 06/14/25 07:45 06/25/25 11:07 5.625 MLS/HR Sennosides 8.6 mg HS PO 06/15/25 22:00 06/25/25 22:00 8.6 MG Polyethylene Glycol 17 gm DAILY PO 06/16/25 10:00 06/26/25 09:50 17 GM Acetaminophen 650 mg Q6HP PRN PO 06/16/25 15:30 06/18/25 23:27 650 MG Sodium Chloride 10 ml QSHIFT@10,22 IV 06/19/25 22:00 06/26/25 09:50 10 ML Lactulose 30 ml DAILY PO 06/21/25 10:00 06/26/25 09:48 30 ML Trimethoprim/ Sulfamethoxazole 10 ml @ 0 mls/hr PER PHARMACY IV 06/20/25 14:45 Trimethoprim/ Sulfamethoxazole 10 ml @ 0 mls/hr PER PHARMACY IV 06/20/25 15:15 UNV Trimethoprim/ Sulfamethoxazole 20 ml/Dextrose 520 ml @ 346.667 mls/hr Q12H IV 06/20/25 17:00 06/26/25 05:50 346.667 MLS/HR Methylprednisolone Sodium Succinate 20 mg BID IV 06/24/25 22:00 06/26/25 09:49 20 MG Levetiracetam 500 mg BID GT 06/25/25 22:00 06/26/25 10:05 500 MG Morphine Sulfate 2 mg Q4HPRN PRN IV 06/26/25 10:45 objective GENERAL: Ill appearing, intubated on vent. EYES: PERRL, EOMI. Anicteric. HENT: Moist mucous membranes. LUNGS: Decreased breath sounds. CARDIOVASCULAR: Regular rate and rhythm. ABDOMEN: Soft, non-tender and non-distended. EXTREMITIES: No edema. SKIN: Warm, dry. laboratory and microbiology Laboratory Tests 06/26/25 04:30 Test 06/26/25 04:30 Range/Units Serum Glucose 196 H 74-106 mg/dL Problem List Acute hypoxic respiratory failure. Septic shock. BPH. Diabetes mellitus. History of seizure disorder. Previous TIRE MAN shunt. History of neurocysticercosis. COPD with exacerbation. Chronic diastolic heart failure. Bedbound status with functional paraplegia. UTI. Assessment/Plan Continued all current supportive medical care. DVT and GI prophylactics. IV Solu-Medrol. Morphine for pain management. Additional plan as per the hospital course. Critical care time of 45 minutes provided to include time spent evaluation of patient at bedside, when appropriate patient/family education for diagnosis, treatment plan, review of pertinent medical information and discussion of care with specialty providers and PCP. Mechanical ventilator parameters, treatment and adjustments have personally been reviewed by me and treatment plan by carbon coating machine operator has also been reviewed. Dietary Evaluation Review Comments: Nutrition Recommendation: 1) TF Jevity 1.2Cal @ 45ml/hr x 24hr (goal) along with Pro-stat 1 pk daily. Start @ 20ml/hr, increase 10ml/hr Q4H until goal is reached. TF @ goal volume along with Pro-stat provide 1396 kcal (100% energy needs), 75 gm protein (100% protein needs), 872 ml free water. 2) Water flush 130ml Q6H if allowed, adjust PRN 3) TPN if NPO >7 days 4) Monitor NPO status, lab values, wt trend, I/O Expected Outcomes/Goals: To meet >75% estimated needs Lab values to improve Fu 2-3 days Plan discussed with: Other Is the fluid challenge complet: No (PROVIDER ORDERED NO FLUID CHALLENGE DUE TO RISK OF FLUID OVERLOAD) Date of Reassessment: Jun 10, 2025 Time of Reassessment: 1829 Blood Culture Time: 1215 Time Antibiotics Given: 1215 Systolic BP: 94 Diastolic BP: 51 Blood Pressure Mean: 65 Respiration: 20 Respiratory Effort: Non-Labored, ET Tube Respiratory Pattern: Regular Oxygen Saturation: 95 Pulse Rate: 93 Pulse Location: Radial Pulse Strength: Normal Pulse Assessment Method: Rcis Pulse Rhythm: Regular Capillary Refill: < 3 seconds Heart Sounds: S1 & S2 Breath sounds: Diminished Skin Moisture: Dry Skin Tugor: WNL Skin Color: WNL ROBERT SANDERS MD Jun 26, 2025 13:27
== END 2025-06-26 19:00 | DRG 4 ==
LOC: ER 11:45 → EDSEX 11:45 → EDBD 11:45 → OVERFLOW 23:11 → EDUNIT# 23:11 → ICU CENTRL 23:12 → OVERFLOW 06-11 00:23 → ICU CENTRL 06-11 00:32
PROVIDERS: ADMIT Internal Medicine; ATTEND Internal Medicine
PROC: 5A1955Z Respiratory Ventilation, Greater than 96 Consecutive Hours (ICD-10-PCS; 2025-06-10)
PROC: 02HV33Z Insertion of Infusion Device into Superior Vena Cava, Percutaneous Approach (ICD-10-PCS; 2025-06-10)
PROC: 0BH17EZ Insertion of Endotracheal Airway into Trachea, Via Natural or Artificial Opening (ICD-10-PCS; 2025-06-10)
PROC: 0B21XEZ Change Endotracheal Airway in Trachea, External Approach (ICD-10-PCS; 2025-06-15)
PROC: 0BJ08ZZ Inspection of Tracheobronchial Tree, Via Natural or Artificial Opening Endoscopic (ICD-10-PCS; 2025-06-15)
PROC: 0BH17EZ Insertion of Endotracheal Airway into Trachea, Via Natural or Artificial Opening (ICD-10-PCS; 2025-06-18)
PROC: 5A1955Z Respiratory Ventilation, Greater than 96 Consecutive Hours (ICD-10-PCS; 2025-06-18)
PROC: 5A09357 Assistance with Respiratory Ventilation, Less than 24 Consecutive Hours, Continuous Positive Airway Pressure (ICD-10-PCS; 2025-06-18)
PROC: 02HV33Z Insertion of Infusion Device into Superior Vena Cava, Percutaneous Approach (ICD-10-PCS; 2025-06-19)
PROC: B548ZZA Ultrasonography of Superior Vena Cava, Guidance (ICD-10-PCS; 2025-06-19)
PROC: 0B110F4 Bypass Trachea to Cutaneous with Tracheostomy Device, Open Approach (ICD-10-PCS; principal; 2025-06-24 08:11)
DX: A41.01 Sepsis due to Methicillin susceptible Staphylococcus aureus (principal); G82.50 Quadriplegia, unspecified; G93.41 Metabolic encephalopathy; J96.01 Acute respiratory failure with hypoxia; R65.21 Severe sepsis with septic shock; J69.0 Pneumonitis due to inhalation of food and vomit; J15.69 Pneumonia due to other Gram-negative bacteria; J15.9 Unspecified bacterial pneumonia; J44.1 Chronic obstructive pulmonary disease with (acute) exacerbation; I50.32 Chronic diastolic (congestive) heart failure; J44.0 Chronic obstructive pulmonary disease with (acute) lower respiratory infection; E87.20 Acidosis, unspecified; T17.890A Other foreign object in other parts of respiratory tract causing asphyxiation, initial encounter; Z99.11 Dependence on respirator [ventilator] status; E11.65 Type 2 diabetes mellitus with hyperglycemia; N40.0 Benign prostatic hyperplasia without lower urinary tract symptoms; E87.6 Hypokalemia; D64.9 Anemia, unspecified; E83.42 Hypomagnesemia; N30.90 Cystitis, unspecified without hematuria; K59.00 Constipation, unspecified; K21.9 Gastro-esophageal reflux disease without esophagitis; G40.909 Epilepsy, unspecified, not intractable, without status epilepticus; E78.5 Hyperlipidemia, unspecified; R74.01 Elevation of levels of liver transaminase levels; E80.6 Other disorders of bilirubin metabolism; B96.89 Other specified bacterial agents as the cause of diseases classified elsewhere; Z74.01 Bed confinement status; Z82.49 Family history of ischemic heart disease and other diseases of the circulatory system; Z88.1 Allergy status to other antibiotic agents; Z88.8 Allergy status to other drugs, medicaments and biological substances; Z79.899 Other long term (current) drug therapy; Z98.2 Presence of cerebrospinal fluid drainage device; Z93.1 Gastrostomy status; W44.F9XA Other object of natural or organic material, entering into or through a natural orifice, initial encounter; Y93.89 Activity, other specified; Y92.89 Other specified places as the place of occurrence of the external cause; Y99.8 Other external cause status
CPT/HCPCS: 31500; 36415; 36556; 36569; 36600; 70450; 71045; 76937; 80048; 80053; 80202; 81001; 82805; 82962; 83036; 83605; 83735; 84100; 84132; 85025; 85610; 85730; 87040; 87070; 87077; 87081; 87086; 87186; 87205; 93005; 94002; 94003; 94640; 94645; 94660; 94667; 94668; 96365; 96375; 99291; 99292; G0378; J0131; J1815; J2185; J2470; J3480; J3490; J7042; J7060

== ENCOUNTER 2025-10-14 18:10 | Emergency (ER) | payer OTHER, MEDICAID ==
[~2025-10-14] VITALS: Ht 165.1 cm; Wt 52.0 kg
[~2025-10-14 18:10] MED LIST changes: -AMOX200S10 PO; -AMPI500C9 PO; -HYDR-4798 PO; -MELO7.5T7 PO; -OXYB5TAB14 PO
--- NOTE | 2025-10-14 19:23 | ED.PDOC ---
History of Present Illness HPI Comments 55 y/o M is BIBA with spouse for c/c of G-tube dysfunction. Per spouse, patient is reported to have leakage off food item flushes around G-tube insertion site. Additionally, patient is reported to have been complaining of abdominal pain whenever being fed through his G-tube for the past 2x days. Denial of any recent dislodgement or injury towards G-tube. G-tube was replaced at [facility] 1x month ago. Chief Complaint: Tube Replacement Time Seen by MD: 19:00 Primary Care Provider: LANNY Reviewed Notes: Nurses Notes, Spray Rig Operator Notes, Medications, Allergies Allergies: Coded Allergies: Ceftriaxone (Verified Allergy, Unknown, 08/22/23) Remdesivir (Unverified Allergy, Unknown, 06/10/25) Home Meds Active Scripts Polyethylene Glycol 3350 (Miralax) 17 Gm Pow, 17 GM GT DAILY for 30 Days, #30 POW 2 Refills Prov:GABRIELLE BOLAÑOS MD 05/30/25 Prednisone (Prednisone) 20 Mg Tab, 20 MG PO QAM for 5 Days, #10 MG Prov:GABRIELLE BOLAÑOS MD 05/30/25 Prednisone (Prednisone) 10 Mg Tab, 10 MG PO QAM for 30 Days, #30 MG 1 Refill Prov:GABRIELLE BOLAÑOS MD 05/30/25 Sulfamethoxazole-Trimethoprim (Bactrim) 10 Ml Iv, 10 ML GT BID for 10 Days, #200 CC Prov:AJAY COX MD 05/18/25 Reported Medications Finasteride (Finasteride) 5 Mg Tab, 1 TAB PO DAILY 05/21/25 Niacin (Niacin) 500 Mg Tab, PO 05/21/25 Magnesium Oxide (Mag-Ox) 400 Mg Tb, 1 TAB PO DAILY 05/21/25 Potassium Bicarbonate-Citric A (Effer-K) 10 Meq Tab, 1 TAB PO DAILY 05/21/25 Nutritional Supplements (Ensure Plus Van) 240 Ml So, PO 05/21/25 Furosemide (Furosemide) 20 Mg Tab, 1 TAB PO DAILY 05/21/25 Cholecalciferol (D-5000) 5,000 Unit Tab, 1 TAB PO DAILY 05/21/25 Pravastatin Sodium (PRAVACHOL TABLET) 20 Mg Tb, 10 MG GT DAILY, TAB 05/21/25 Acetaminophen (Acetaminophen Extra Stren) 500 Mg Tab, PO 05/21/25 Prednisone (Prednisone) 10 Mg Tab, 1 TAB PO DAILY 05/21/25 Clotrimazole (Topical) (Clotrimazole Antifungal) 1 % Cre, 1 TOP DAILY 05/21/25 Levetiracetam (Levetiracetam) 100 Mg/Ml Haley, ML PO 05/21/25 Ketoconazole (Ketoconazole) 2 % Cre, 1 APPLIC TOP 05/21/25 Sywtk-9-Gkrn Ethyl Esters (Gnynp-0-Lpsw Ethyl Esters) 1 Gm Cap, 1 CAP PO BID 05/21/25 Dbcnpjfgnpr-Eexubuqdgduc-Ouoba (Trelegy Ellipta 100-62.5-25 Mcg/INH) 1 Aer Aer, 1 PUFF INH DAILY 05/21/25 Timolol Maleate (Ophth) (Timolol Maleate) 0.5 % Haley, EACHEYE 05/21/25 Lidocaine (Ztlido) 1.8 % Pad, 1.8 % EX, PAD 11/14/24 Budesonide (Inhalation) (Budesonide) 0.5 Mg/2 Ml Nika, 0.5 MG, ML 11/14/24 Alendronate Sodium (Alendronate Sodium) 35 Mg Tab, 1 TAB PO QWEEKLY, #4 TAB 11 Refills 11/14/24 [place]-3 Fatty Acids ([place]-3) Unknown Strength Cap, PO, CAP 11/14/24 Mupirocin Calcium (Topical) (MUPIROCIN) 2 % Cre, 2 % EX, CRE 11/14/24 Acetaminophen (Acetaminophen) 325 Mg Tab, 500 MG PO Q6HP PRN for MILD PAIN for 30 Days, MG 0 Refills 11/14/24 Timolol Maleate (Timolol Maleate Ophthalmi) Unknown Strength Haley, EACHEYE QAM, #5 ML 5 Refills 11/14/24 Diclofenac Sodium (Topical) (Diclofenac Sodium) 2 % Haley, 3 % EX, ML 11/14/24 Cholecalciferol (VITAMIN D3) 5,000 Unit Tab, 5000 UNIT PO DAILY, TAB 01/16/24 Niacin (NIACIN ER) 500 Mg Tab, 500 MG PO DAILY, TAB 01/16/24 Ipratropium-Albuterol (Ipratropium [place]/Albut) 1 Haley Haley, 1 HALEY IN Q4HPRN PRN for SHORTNESS OF BREATH, ML 01/16/24 Cyanocobalamin (Vitamin B12) 1,000 Mcg Tab, 1000 MCG PO DAILY, TAB 01/16/24 Pantoprazole Sodium (PANTOPRAZOLE SODIUM) 40 Mg Inj, 40 MG, INJ 08/22/23 Clotrimazole (Clotrimazole) 1 % Cre, 1 APPLIC TOP Q12HR for 30 Days, APPLIC 08/22/23 Magnesium Oxide (MAGNESIUM OXIDE) 400 Mg Tab, 1 TAB PO DAILY, #30 TAB 5 Refills 08/08/23 Zinc W/ Vitamin C (Vitamin C+Zinc 15-60 mg) 1 Tab Tab, 1 TAB PO DAILY, TAB 08/08/23 Pravastatin Sodium (PRAVACHOL TABLET) 20 Mg Tb, 10 TAB PO DAILY, #30 TAB 5 Refills 08/08/23 Folic Acid (Folic Acid) 1 Mg Tab, 1 MG PO DAILY for 30 Days, MG 08/08/23 Tamsulosin Hcl (Tamsulosin Hcl) 0.4 Mg Cap, 0.4 MG PO QPM for 30 Days, MG 02/05/22 Information Source: Patient, Emergency Med Personnel Mode of Arrival: EMS Past Medical History PAST MEDICAL HISTORY: GERD, High Lipids, Seizures Surgical History (Other): G-tube Family History Family History: Reviewed,noncontributory to illness, Unknown Social History Smoker: Unknown Alcohol: Unknown Drugs: Unknown Lives In: Home All Other Systems: Reviewed and Negative (As per HPI) Physical Exam General Appearance: No Apparent Distress, Normal HEENT: Normal ENT Inspection, Pharynx Normal, TMs Normal Neck: Full Range of Motion, Non-Tender, Normal, Normal Inspection Respiratory: Chest Non-Tender, Lungs Clear, No Accessory Muscle Use, No Respiratory Distress, Normal Breath Sounds Cardiovascular: No Edema, No JVD, No Murmur, No Gallop, Normal Peripheral Pulses, Regular Rate/Rhythm Breast Exam: Deferred Gastrointestinal: No Organomegaly, No Pulsatile Mass, Normal Bowel Sounds, Soft, Other (G-tube in place and appears intact ) Genitalia: Deferred Pelvic: Deferred Rectal: Deferred Extremities: No calf tenderness, Normal capillary refill, Normal inspection, Normal range of motion, Non-tender, No pedal edema Musculoskeletal : Apperance: Normal Neurologic: Alert, traffic reporter II-XII nml as Tested, No Motor Deficits, Normal Affect, Normal Mood, No Sensory Deficits Cerebellar Function: Normal Reflexes: Normal Skin: Dry, Normal Color, Warm Lymphatic: No Adenopathy Was a procedure done? Was a procedure done?: No Differential Dx Considerations may include: feeding tube dysfunction X-Ray, Labs, Meds, VS Vital Signs Date Time Temp Pulse Resp B/P (MAP) Pulse Ox O2 Delivery O2 Flow Rate FiO2 10/14/25 21:27 Room Air* 0 N/A Trach Collar 10/14/25 21:24 98.6 92 16 137/86 (103) 98 98.6 10/14/25 18:15 98.7 92 18 101/72 100 98.7 Time of 1ST Reevaluation: 19:20 Reevaluation 1ST: Unchanged Patient Education/Counseling: Diagnosis, Treatment, Need For Follow Up Family Education/Counseling: Diagnosis, Treatment, Need For Follow Up SEPSIS Sepsis Screen Date sepsis recognized/suspect: Oct 14, 2025 Time Sepsis recognized/suspect: 1814 Recent Procedure: No On Antibiotic Therapy: No Respiratory Rate >20: No Heart Rate >90: Yes Temp<36 C (96.8 F) or >38.3 C: No SBP <90 or MAP <65 mmHG: No New Acute Mental Status Change: No Is the patient on CPAP, BIPAP,: No Physician Orders Feeding Tube (10/14/25 ) May Leave Feeding Tube (10/14/25 18:44) Saline Flush (10/14/25 ) Vital Signs Date Time Temp Pulse Resp B/P (MAP) Pulse Ox O2 Delivery O2 Flow Rate FiO2 10/14/25 21:27 Room Air* 0 N/A Trach Collar 10/14/25 21:24 98.6 92 16 137/86 (103) 98 98.6 10/14/25 18:15 98.7 92 18 101/72 100 98.7 Departure 1 Departure Time of Disposition: 19:20 Impression: Primary Impression: Feeding tube dysfunction Disposition: HOME / SELF CARE / HOMELESS Condition: Stable Additional Instructions: Debe hacer urddy carlotta con vazquez medico regular Regrese aqui si siente peor Discharged With: Self Critical Care Note Critical Care Time?: No Stability Stability form required: No Heart Score Heart Score: Heart Score Response (Comments) Value History N/A 0 EKG N/A 0 Age N/A 0 Risk Factors N/A 0 Troponin N/A 0 Total 0 I personally scribed for GILMAR SAGE MD ([email or web address]) on 10/14/25 at 19:23. Electronically submitted by Eh Magdaleno [email or web address]). GILMAR SAGE MD Oct 14, 2025 19:23
[2025-10-14 21:24] VITALS: BP 137/86; PULSE 92; RESP 16; TEMP 98.6; O2SAT 98
[2025-10-18] MEDS ORDERED: CEFD300C2 PO (21:13)
== END 2025-10-14 21:55 | disposition home or self-care (01) ==
LOC: EDUNIT# 18:10 → ER 18:10 → EDBD 18:10 → ER 21:55
DX: K94.23 Gastrostomy malfunction (principal); F17.200 Nicotine dependence, unspecified, uncomplicated; Z88.1 Allergy status to other antibiotic agents; Z79.899 Other long term (current) drug therapy